=== PATIENT | male | born 1945 | race Caucasian/White ===

== ENCOUNTER 2024-04-01 18:31 | Observation (INO) | payer MEDICARE, SELFPAY ==
[2024-04-01 18:44] VITALS: BP 180/90; PULSE 106; TEMP 36.7; O2SAT 98; BMI 27.6
--- NOTE | 2024-04-01 19:30 | ED.GENADUL1 ---
HPI HPI - General Adult General Chief complaint: Abdominal Pain Stated complaint: Abdominal Pain Time Seen by Provider: 04/01/24 19:16 Source: patient Mode of arrival: walk-in Limitations: no limitations History of Present Illness HPI narrative: Patient is a 78-year-old male who presents to the emergency department for increasing abdominal and flank pain. Patient states he had severe flank pain about 1 month ago, he was seen in an outside facility and passed a small kidney stone. He states several weeks later he had a return of the pain and has been passing multiple small stones. He states over the last week, his pain has increased significantly and he was seen 1 week ago at [facility] with a CT performed in the emergency department. He states he was told he had a 5 mm stone, he was prescribed pain medication, nausea medication for home. He states his increased pain today caused him to call his urologist and he was seen as an outpatient in the [place] office for Dr. Loera, he also had an outpatient x-ray today. He is scheduled for surgery tomorrow morning at this facility at 9 AM to remove the stone, he states that he was told by Dr. Loera in the office that if his pain continued to increase he should come to the hospital, patient's states she is hoping that he can be admitted overnight for pain control as he has not had improvement with home pain medications and continues to vomit them up. No fevers, he is passing urine without difficulty. Related Data Home Medications ?Medication ?Instructions ?Recorded ?Confirmed amlodipine 5 mg tablet 5 mg PO DAILY 04/01/24 04/01/24 aspirin 81 mg capsule 81 mg PO DAILY 04/01/24 04/01/24 doxazosin 4 mg tablet 4 mg PO BEDTIME 04/01/24 04/01/24 ezetimibe 10 mg tablet 10 mg PO BEDTIME 04/01/24 04/01/24 isosorbide mononitrate 30 mg 30 mg PO DAILY 04/01/24 04/01/24 tablet,extended release 24 hr potassium citrate 15 mEq (1,620 15 meq PO DAILY 04/01/24 04/01/24 mg) tablet,extended release rosuvastatin 40 mg tablet 40 mg PO BEDTIME 04/01/24 04/01/24 tamsulosin 0.4 mg capsule 0.4 mg PO Q24H 04/01/24 04/01/24 bisoprolol fumarate 10 mg tablet 10 mg PO DAILY 04/02/24 oxycodone 5 mg tablet 5 mg PO Q6H PRN pain 04/02/24 04/02/24 semaglutide 2 mg/dose (8 mg/3 mL) 2 mg subcut QWEEK 04/02/24 04/02/24 subcutaneous pen injector (Ozempic) Previous Rx's ?Medication ?Instructions ?Recorded cephalexin 500 mg capsule 500 mg PO BID 7 days #14 caps 04/02/24 mirabegron 50 mg tablet,extended 50 mg PO DAILY #20 tabs 04/02/24 release 24 hr (Myrbetriq) Allergies Allergy/AdvReac Type Severity Reaction Status Date / Time lisinopril AdvReac Mild Cough Verified 04/01/24 20:12 colesevelam AdvReac Unknown Unknown Verified 04/01/24 20:12 fluvastatin AdvReac Unknown Muscle Pain Verified 04/01/24 20:12 metaxalone AdvReac Unknown Unknown Verified 04/01/24 20:12 simvastatin AdvReac Unknown Muscle Pain Verified 04/01/24 20:12 atorvastatin AdvReac Muscle Pain Verified 04/01/24 20:12 cerivastatin AdvReac Muscle Pain Verified 04/01/24 20:12 Opioid HPI Opioid Management Most Recent Opioid Data: Last Pain Scale 3 04/02/24 07:00 Last Pain Assessment 04/02/24 17:00 Last MAR Pain Assessment 04/02/24 05:35 Last ORT Total Score 4 04/01/24 22:35 Last ORT Risk Category Moderate Risk 04/01/24 22:35 Review of Systems ROS Constitutional Denies: fever or chills Ears, nose, mouth, and throat Denies: throat pain or nasal congestion Respiratory Denies: shortness of breath Gastrointestinal Reports: abdominal pain, nausea and vomiting; Denies: diarrhea Genitourinary Denies: painful urination or urinary frequency Musculoskeletal Reports: back pain; Denies: neck pain Hematologic/Lymphatic Denies: easy bruising or easy bleeding [facility] Medical History (Updated 04/02/24 @ 11:11 by Shaikh Roro MD) HLD (hyperlipidemia) ?E78.5 - Hyperlipidemia, unspecified (ICD-10) Type 2 diabetes mellitus ?E11.9 - Type 2 diabetes mellitus without complications (ICD-10) Nausea and vomiting ?R11.2 - Nausea with vomiting, unspecified (ICD-10) Flank pain ?R10.9 - Unspecified abdominal pain (ICD-10) Testicle pain ?N50.819 - Testicular pain, unspecified (ICD-10) Retrograde ejaculation ?N53.14 - Retrograde ejaculation (ICD-10) Nocturia ?R35.1 - Nocturia (ICD-10) Epididymitis ?N45.1 - Epididymitis (ICD-10) Kidney stone ?N20.0 - Calculus of kidney (ICD-10) Hypertension ?I10 - Essential (primary) hypertension (ICD-10) GI bleed ?K92.2 - Gastrointestinal hemorrhage, unspecified (ICD-10) Elevated PSA ?R97.20 - Elevated prostate specific antigen [PSA] (ICD-10) Elevated cholesterol ?E78.00 - Pure hypercholesterolemia, unspecified (ICD-10) BPH (benign prostatic hyperplasia) ?N40.0 - Benign prostatic hyperplasia without lower urinary tract symptoms (ICD-10) Surgical History (Updated 04/01/24 @ 16:43 by Moira Luciano RN) H/O: vasectomy ?Z98.52 - Vasectomy status (ICD-10) Hx of tonsillectomy ?Z90.89 - Acquired absence of other organs (ICD-10) History of colonoscopy ?Z98.890 - Other specified postprocedural states (ICD-10) H/O transurethral resection of prostate ?Z98.890 - Other specified postprocedural states (ICD-10) ?Z90.79 - Acquired absence of other genital organ(s) (ICD-10) Hx of cystoscopy ?Z98.890 - Other specified postprocedural states (ICD-10) H/O ureteroscopy ?Z98.890 - Other specified postprocedural states (ICD-10) H/O lithotripsy ?Z98.890 - Other specified postprocedural states (ICD-10) H/O arthroscopy of knee ?Z98.890 - Other specified postprocedural states (ICD-10) Family History (Updated 04/01/24 @ 16:49 by Moira Luciano RN) Other Family history of stroke Heart disease Social History (Updated 04/01/24 @ 22:49 by Ashok Abdul) Smoking status: Former smoker What tobacco products do you use: cigarettes Packs per day: 2 Years smoked: 20 Smoking pack-years: 40.00 Smoking quit date/years: >15 years ago Second hand tobacco smoke exposure: Yes Highest level of school completed/degree received: high school graduate Exam Narrative Exam Narrative: Gen.: Awake, alert, in no distress Head: Normocephalic, atraumatic ENT: Moist mucous membranes Respiratory: No respiratory distress Gastrointestinal: Abdomen is soft, nondistended and mildly tender to palpation along the right flank Extremities: Moves extremities equally Psych: Normal mood and affect Neuro: No focal neuro deficit Skin: Warm, dry, intact Constitutional Vital Signs, click to edit/add: Last Vital Signs Temp 99.3 F 04/02/24 17:09 Pulse 95 H 04/02/24 17:09 Resp 18 04/02/24 17:09 BP 115/67 04/02/24 17:09 Pulse Ox 94 L 04/02/24 17:09 O2 Del Method Room Air 04/02/24 17:09 O2 Flow Rate 2 04/02/24 16:23 Course Vital Signs Vital signs: Vital Signs Temperature 98.1 F 04/01/24 18:44 Pulse Rate 106 H 04/01/24 18:44 Respiratory Rate 18 04/01/24 18:44 Blood Pressure 180/90 H 04/01/24 18:44 Pulse Oximetry 98 04/01/24 18:44 Oxygen Delivery Method Room Air 04/01/24 18:44 Temperature 99.3 F 04/02/24 17:09 Pulse Rate 95 H 04/02/24 17:09 Respiratory Rate 18 04/02/24 17:09 Blood Pressure 115/67 04/02/24 17:09 Pulse Oximetry 94 L 04/02/24 17:09 Oxygen Delivery Method Room Air 04/02/24 17:09 Oxygen Delivery Flow Rate 2 04/02/24 16:23 Medical Decision Making MDM Narrative Medical decision making narrative: Patient medicated with IV fluids, Dilaudid, low-dose Toradol, Zofran. CBC is unremarkable, urine specimen with no evidence of infection although the patient does have ketones and is likely dehydrated. Patient's expresses her concern about the patient going home tonight in terms of pain control and continued vomiting, he is admitted for observation for pain control until his surgery tomorrow morning with Dr. Loera. Accepted by the hospitalist service SUPERVISED APC VISIT, PHYSICIAN ATTESTATION: Based on the medical record the care appears appropriate. ? Medical Records Medical records reviewed: Yes I reviewed the patient's medical records Lab Data Lab results reviewed: Yes I reviewed the patient's lab results Labs: Lab Results 04/01/24 04/01/24 Range/Units 18:55 19:15 WBC 10.2 (4.0-11.0) 10^3/uL RBC 5.53 (4.70-6.10) 10^6/uL Hgb 16.8 (14.0-18.0) g/dL Hct 49.6 (42.0-54.0) % MCV 89.7 (80.0-94.0) fL MCH 30.4 (25.9-34.0) pg MCHC 33.9 (29.9-35.2) g/dL RDW 14.5 (11.0-15.0) % Plt Count 163 (150-450) 10^3/uL MPV 11.7 (9.5-13.5) fL Seg Neuts % (Manual) 84.0 H (43.0-75.0) Band Neutrophils % 1.0 (0-5) % Lymphocytes % (Manual) 4.0 L (20.5-60.0) % Monocytes % (Manual) 11.0 (1.7-12.0) % Eosinophils % (Manual) 0.0 L (0.9-7.0) % Basophils % (Manual) 0.0 L (0.2-2.0) % Neutrophils # (Manual) 8.56 H (1.4-6.5) 10^3/uL Band Neutrophils # 0.1 (0.0-0.3) 10^3/uL Lymphocytes # (Manual) 0.40 L (1.20-3.80) 10^3/uL Monocytes # (Manual) 1.12 H (0.30-0.80) 10^3/uL Eosinophils # (Manual) 0.00 (0.00-0.70) 10^3/uL Basophils # (Manual) 0.00 (0.00-0.10) 10^3/uL PT 11.2 (9.0-11.6) sec INR 1.06 Sodium 138 (136-145) mmol/L Potassium 4.3 (3.5-5.1) mmol/L Chloride 100 (98-107) mmol/L Carbon Dioxide 25.3 (21.0-32.0) mmol/L Anion Gap 17.0 BUN 22.0 H (7.0-18.0) mg/dL Creatinine 1.87 H (0.70-1.30) mg/dL Est GFR ( Amer) 43 L (>=60) Est GFR (Non-Af Amer) 35 L (>=60) BUN/Creatinine Ratio 11.8 Glucose 172 H (74-106) mg/dL Lactate 1.5 (0.4-2.0) mmol/L Calcium 9.6 (8.5-10.1) mg/dL Total Bilirubin 1.2 H (0.2-1.0) mg/dL AST 25 (15-37) U/L ALT 33 (16-63) U/L Alkaline Phosphatase 98 (46-116) U/L Total Protein 7.4 (6.4-8.2) g/dL Albumin 3.7 (3.4-5.0) g/dL Globulin 3.7 g/dL Albumin/Globulin Ratio 1.0 Urine Color Yellow (YELLOW) Urine Clarity Clear (CLEAR) Urine pH 6.5 (5.0-9.0) Ur Specific [place] 1.020 (1.005-1.025) Urine Protein 30 A (NEG/TRACE) mg/dL Urine Glucose (UA) Negative (NEGATIVE) mg/dL Urine Ketones 40 A (NEGATIVE) mg/dL Urine Occult Blood Trace-i (NEGATIVE) Urine Nitrite Negative (NEGATIVE) Urine Bilirubin Negative (NEGATIVE) Urine Urobilinogen 0.2 (0.2-1.0) EU/dL Ur Leukocyte Esterase Negative (NEGATIVE) Urine RBC 0-2 (0-2) #/HPF Urine WBC None seen (NONE SEEN) #/HPF Ur Squamous Epith Cells Rare (NONE/RARE) #/LPF Urine Crystals None seen (None Seen) #/HPF Urine Bacteria Trace A (NONE SEEN) #/HPF Urine Casts None seen (NONE SEEN) #/LPF Urine Mucus None seen (NONE SEEN) Ur Culture Indicated? No Discharge Plan Discharge Chief Complaint: Abdominal Pain Clinical Impression: Acute flank pain, Nausea & vomiting Patient Disposition: Admitted as Observation Time of Disposition Decision: 19:48 Condition: Good Discharge Date/Time: 04/01/24 21:20
[2024-04-01 19:37] LABS: Hematocrit 49.6 % (42.0-54.0); Hemoglobin 16.8 g/dL (14.0-18.0); Mean Corpuscular HGB Conc 33.9 g/dL (29.9-35.2); Mean Corpuscular Hemoglobin 30.4 pg (25.9-34.0); Mean Corpuscular Volume 89.7 fL (80.0-94.0); Mean Platelet Volume 11.7 fL (9.5-13.5); Platelet Count 163 10^3/uL (150-450); Red Blood Count 5.53 10^6/uL (4.70-6.10); Red Cell Distribution Width 14.5 % (11.0-15.0); White Blood Count 10.2 10^3/uL (4.0-11.0)
[2024-04-01 19:39] LABS: Bilirubin Urine NEGATIVE (NEGATIVE); Blood Urine TRACE-I (NEGATIVE); Clarity Urine CLEAR (CLEAR); Color Urine YELLOW (YELLOW); Glucose Urine UA NEGATIVE (NEGATIVE); Ketones Urine 40 mg/dL (NEGATIVE); Leukocyte Esterase Urine NEGATIVE (NEGATIVE); Nitrite Urine NEGATIVE (NEGATIVE); Protein Urine 30 mg/dL (NEG/TRACE); Urobilinogen Urine 0.2 EU/dL (0.2-1.0); pH Urine 6.5 (5.0-9.0)
[2024-04-01 19:42] LABS: Urine Microscopic Indicated YES
[2024-04-01 19:51] LABS: Bacteria Urine TRACE #/HPF (NONE SEEN); Cast Seen? NONE SEEN #/LPF (NONE SEEN); Crystals Seen? None Seen #/HPF (None Seen); Mucus Urine NONE SEEN (NONE SEEN); RBC Urine 0-2 #/HPF (0-2); Squamous Epithelial Cell Urine RARE #/LPF (NONE/RARE); Urine Culture Indicated NO; WBC Urine NONE SEEN #/HPF (NONE SEEN)
[2024-04-01 19:53] LABS: Alanine Aminotransferase 33 U/L (16-63); Albumin Level 3.7 g/dL (3.4-5.0); Alkaline Phosphatase 98 U/L (46-116); Aspartate Amino Transferase 25 U/L (15-37); BUN Creatinine Ratio 11.8; Bilirubin Total 1.2 mg/dL (0.2-1.0); Calcium 9.6 mg/dL (8.5-10.1); Chloride 100 mmol/L (98-107); Estimated GFR (African America 43 (>=60); Estimated GFR (Non-African Ame 35 (>=60); Globulin 3.7 g/dL; Glucose 172 mg/dL (74-106); Potassium 4.3 mmol/L (3.5-5.1); Sodium 138 mmol/L (136-145); Total Protein 7.4 g/dL (6.4-8.2)
[2024-04-01 19:55] LABS: Lactate/Lactic Acid 1.5 mmol/L (0.4-2.0); Segmented Neut Absolute Manual 8.56 10^3/uL (1.4-6.5)
[2024-04-01 19:56] LABS: Band Neutrophils Absolute 0.1 10^3/uL (0.0-0.3); Monocytes Absolute Manual 1.12 10^3/uL (0.30-0.80)
[2024-04-01] MEDS: 0.9 % SODIUM CHLORIDE 1,000 ML 999 ML IV (19:56)
[2024-04-01] MEDS: ONDANSETRON PF 4 MG/2 ML VIAL IV (19:57)
[2024-04-01] MEDS: HYDROMORPHONE HCL 0.5 MG/0.5 ML SYRINGE IV (19:57)
[2024-04-01] MEDS: KETOROLAC TROMETHAMINE 30 MG/ML VIAL 15 MG IVP (19:57)
[2024-04-01 20:01] LABS: Carbon Dioxide 25.3 mmol/L (21.0-32.0)
[2024-04-01 20:03] LABS: INR 1.06; Prothrombin Time 11.2 sec (9.0-11.6)
[2024-04-01 20:08] VITALS: BP 152/88; PULSE 89; TEMP 36.8; O2SAT 92
[2024-04-01 21:20] VITALS: BP 160/100; PULSE 88; O2SAT 97
[2024-04-01 22:35] VITALS: BP 152/88; PULSE 89; TEMP 36.8; O2SAT 92; BMI 27.6
[2024-04-01] MEDS: 0.9 % SODIUM CHLORIDE 1,000 ML 100 ML IV (23:01)
[2024-04-02] VITALS (14 sets, daily range): BP systolic 115–149; BP diastolic 67–95; PULSE 76–95; TEMP 36.2–37.4; O2SAT 88–98
--- NOTE | 2024-04-02 | FL_ITS ---
[address] [address] Patient Name: JESSENIA PYLE MRN: [id number] date: 1945 Sex: M Assigned Patient Location: [place] Current Patient Location: [place] Accession/Order Number: [id number] Exam Date: 04/02/2024 12:30 Report Date: 04/07/2024 08:16 At the request of: JESUSITA SMALL Procedure: FL fluoroscopy <1hr NON-READ EXAM: FL fluoroscopy <1hr NON-READ HISTORY: TECHNIQUE: FINDINGS: Please see Operative Report. Electronically authenticated by: RADIOLOGIST NO Date: 04/07/2024 08:16
[2024-04-02] MEDS: HYDROMORPHONE HCL 1 MG/ML CARTRIDGE 0.5 MG IVP ×2 (00:09→05:35)
[2024-04-02] MEDS: KETOROLAC TROMETHAMINE 30 MG/ML VIAL 15 MG IVP ×2 (00:56→05:35)
[2024-04-02 06:39] LABS: Hematocrit 41.2 % (42.0-54.0); Hemoglobin 13.8 g/dL (14.0-18.0); Mean Corpuscular HGB Conc 33.5 g/dL (29.9-35.2); Mean Corpuscular Hemoglobin 30.5 pg (25.9-34.0); Mean Corpuscular Volume 90.9 fL (80.0-94.0); Mean Platelet Volume 11.7 fL (9.5-13.5); Platelet Count 140 10^3/uL (150-450); Red Blood Count 4.53 10^6/uL (4.70-6.10); Red Cell Distribution Width 14.6 % (11.0-15.0); White Blood Count 7.2 10^3/uL (4.0-11.0)
[2024-04-02] MEDS: 0.9 % SODIUM CHLORIDE 1,000 ML 100 ML IV (06:45)
[2024-04-02] MEDS: ONDANSETRON PF 4 MG/2 ML VIAL IV (06:46)
[2024-04-02 07:08] LABS: Anion Gap 9.9; BUN Creatinine Ratio 11.2; Calcium 8.5 mg/dL (8.5-10.1); Carbon Dioxide 28.2 mmol/L (21.0-32.0); Chloride 105 mmol/L (98-107); Estimated GFR (African America 43 (>=60); Estimated GFR (Non-African Ame 35 (>=60); Glucose 97 mg/dL (74-106); Potassium 4.1 mmol/L (3.5-5.1); Sodium 139 mmol/L (136-145)
[2024-04-02] MEDS: ISOSORBIDE MONONITRATE 30 MG TAB.ER.24H PO (08:50)
[2024-04-02] MEDS: LACTATED RINGER'S SOLUTION 1,000 ML 50 ML IV ×2 (08:50→13:00)
[2024-04-02] MEDS: AMLODIPINE BESYLATE 5 MG TABLET PO (08:50)
--- NOTE | 2024-04-02 09:09 | ECG_ITS ---
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
[2024-04-02 09:57] LABS: Partial Thromboplastin Time 32.9 sec (22.3-36.2)
--- NOTE | 2024-04-02 10:27 | SWNOTE1 ---
SW met with pt and in room to discuss dc needs. Pt lives at home with and does not use any DME equipment, is independent, and has no services coming. Pt denies having any discharge needs at this time. SW to follow as needed.
--- NOTE | 2024-04-02 10:27 | CM.NOTE ---
Rounds made with Dr. Read. Dr. Read discusses plan of care and potential for discharge if stable after surgery today.
--- NOTE | 2024-04-02 10:31 | SWNOTE1 ---
Medicare Outpatient Observation Notice reviewed and discussed with patient and . Pt and verbalized understanding and pt had his sign the form. Original given to patient and and copy placed in patient?s chart.
--- NOTE | 2024-04-02 11:03 | PM.HP ---
HPI H&P: HPI History of Present Illness Chief complaint: Abdominal Pain, Flank Pain, Ureteral Stone Narrative: HPI and Hospital Course: 78-year-old male with history of recurrent intrarenal stone originally presented to [facility] about 4 weeks ago and was discharged on oral abx. He was found to have right renal stones and CT scan was indicative of recently passed stone. He then presented to [facility] for right sided abdominal pain, suprapubic pain and passed a small stone while in ED. He felt better afterwards but then past 2-3 days, he started to experience intractable nausea/vomiting, right sided pain, that is intermittent,spasmodic and was seen by Urol[facility]oy as outpatient. He was originally scheduled for elective cystoscopy/ureteral stent placement today but presented to ED due to intractable symptoms. Patient was admitted for intractable nausea, vomiting and abdominal pain secondary to right ureteral stone. Patient denies inability to urinate or hematuria. He has prior history of recurrent renal stone and has had urological interventions in the past. He was reassess post operatively. He had cystoscopy/ureteral dilatation/stent placement. Stable for discharge from Urologist pov. F/u with Urology - Dr Loera office will call to schedule the appointment. F/u with PCP in one week Opioid HPI Opioid Management Most Recent Pain and Opioid Data: Last Pain Scale 3 04/02/24 07:00 Last Pain Assessment 04/02/24 13:49 Last MAR Pain Assessment 04/02/24 05:35 Last ORT Total Score 4 04/01/24 22:35 Last ORT Risk Category Moderate Risk 04/01/24 22:35 Review of Systems ROS Status of ROS 10 or more systems reviewed and unremarkable except as noted in history and below [facility] Medical History (Updated 04/02/24 @ 11:11 by Shaikh Roro MD) HLD (hyperlipidemia) ?E78.5 - Hyperlipidemia, unspecified (ICD-10) Type 2 diabetes mellitus ?E11.9 - Type 2 diabetes mellitus without complications (ICD-10) Nausea and vomiting ?R11.2 - Nausea with vomiting, unspecified (ICD-10) Flank pain ?R10.9 - Unspecified abdominal pain (ICD-10) Testicle pain ?N50.819 - Testicular pain, unspecified (ICD-10) Retrograde ejaculation ?N53.14 - Retrograde ejaculation (ICD-10) Nocturia ?R35.1 - Nocturia (ICD-10) Epididymitis ?N45.1 - Epididymitis (ICD-10) Kidney stone ?N20.0 - Calculus of kidney (ICD-10) Hypertension ?I10 - Essential (primary) hypertension (ICD-10) GI bleed ?K92.2 - Gastrointestinal hemorrhage, unspecified (ICD-10) Elevated PSA ?R97.20 - Elevated prostate specific antigen [PSA] (ICD-10) Elevated cholesterol ?E78.00 - Pure hypercholesterolemia, unspecified (ICD-10) BPH (benign prostatic hyperplasia) ?N40.0 - Benign prostatic hyperplasia without lower urinary tract symptoms (ICD-10) Surgical History (Updated 04/01/24 @ 16:43 by Moira Luciano RN) H/O: vasectomy ?Z98.52 - Vasectomy status (ICD-10) Hx of tonsillectomy ?Z90.89 - Acquired absence of other organs (ICD-10) History of colonoscopy ?Z98.890 - Other specified postprocedural states (ICD-10) H/O transurethral resection of prostate ?Z98.890 - Other specified postprocedural states (ICD-10) ?Z90.79 - Acquired absence of other genital organ(s) (ICD-10) Hx of cystoscopy ?Z98.890 - Other specified postprocedural states (ICD-10) H/O ureteroscopy ?Z98.890 - Other specified postprocedural states (ICD-10) H/O lithotripsy ?Z98.890 - Other specified postprocedural states (ICD-10) H/O arthroscopy of knee ?Z98.890 - Other specified postprocedural states (ICD-10) Family History (Updated 04/01/24 @ 16:49 by Moira Luciano RN) Other Family history of stroke Heart disease Social History (Updated 04/01/24 @ 22:49 by Ashok Abdul) Smoking status: Former smoker What tobacco products do you use: cigarettes Packs per day: 2 Years smoked: 20 Smoking pack-years: 40.00 Smoking quit date/years: >15 years ago Second hand tobacco smoke exposure: Yes Highest level of school completed/degree received: high school graduate Meds Home Medications and Allergies Home Medications ?Medication ?Instructions ?Recorded ?Confirmed ?Type amlodipine 5 mg tablet 5 mg PO DAILY 04/01/24 04/01/24 History aspirin 81 mg capsule 81 mg PO DAILY 04/01/24 04/01/24 History doxazosin 4 mg tablet 4 mg PO BEDTIME 04/01/24 04/01/24 History ezetimibe 10 mg tablet 10 mg PO BEDTIME 04/01/24 04/01/24 History isosorbide mononitrate 30 mg 30 mg PO DAILY 04/01/24 04/01/24 History tablet,extended release 24 hr potassium citrate 15 mEq (1,620 15 meq PO DAILY 04/01/24 04/01/24 History mg) tablet,extended release rosuvastatin 40 mg tablet 40 mg PO BEDTIME 04/01/24 04/01/24 History tamsulosin 0.4 mg capsule 0.4 mg PO Q24H 04/01/24 04/01/24 History bisoprolol fumarate 10 mg tablet 10 mg PO DAILY 04/02/24 History cephalexin 500 mg capsule 500 mg PO BID 7 days #14 caps 04/02/24 Rx mirabegron 50 mg tablet,extended 50 mg PO DAILY #20 tabs 04/02/24 Rx release 24 hr (Myrbetriq) oxycodone 5 mg tablet 5 mg PO Q6H PRN pain 04/02/24 04/02/24 History semaglutide 2 mg/dose (8 mg/3 mL) 2 mg subcut QWEEK 04/02/24 04/02/24 History subcutaneous pen injector (Ozempic) Allergies Allergy/AdvReac Type Severity Reaction Status Date / Time lisinopril AdvReac Mild Cough Verified 04/01/24 20:12 colesevelam AdvReac Unknown Unknown Verified 04/01/24 20:12 fluvastatin AdvReac Unknown Muscle Pain Verified 04/01/24 20:12 metaxalone AdvReac Unknown Unknown Verified 04/01/24 20:12 simvastatin AdvReac Unknown Muscle Pain Verified 04/01/24 20:12 atorvastatin AdvReac Muscle Pain Verified 04/01/24 20:12 cerivastatin AdvReac Muscle Pain Verified 04/01/24 20:12 Exam Constitutional Vital Signs, click to edit/add: Last Vital Signs Temp 98.4 F 04/02/24 07:34 Pulse 86 04/02/24 07:34 Resp 16 04/02/24 07:34 BP 149/89 H 04/02/24 07:34 Pulse Ox 98 04/02/24 07:34 O2 Del Method Room Air 04/02/24 07:34 Documenting provider has reviewed patient's vital signs: yes Common normals: no apparent distress and oriented x3 General appearance: cooperative Respiratory Common normals: normal respiratory effort and clear to auscultation bilaterally [place] & inspection: able to speak in complete sentences Auscultation: clear to auscultation bilaterally Cardio Common normals: regular rate, S1 normal heart sound and S2 normal heart sound Rate: regular rate Heart sounds: S1 normal and S2 normal GI Common normals: Normal to inspection, nondistended, normoactive bowel sounds present, soft to palpation, non-tender and no hepatosplenomegaly Palpation: soft and no hepatosplenomegaly Extremity Common normals: no clubbing, cyanosis or edema Neuro Common normals: oriented x3, moves all extremities and no focal motor deficits Psych Common normals: mental status grossly normal, denies hallucinations, denies homicidal ideation and denies suicidal ideation Results Labs Labs: Short CBC 04/01/24 04/02/24 Range/Units 19:15 06:03 WBC 10.2 7.2 (4.0-11.0) 10^3/uL Hgb 16.8 13.8 L (14.0-18.0) g/dL Hct 49.6 41.2 L (42.0-54.0) % Plt Count 163 140 L (150-450) 10^3/uL BMP 04/01/24 04/02/24 19:15 06:03 Sodium 138 139 Potassium 4.3 4.1 Chloride 100 105 Carbon Dioxide 25.3 28.2 BUN 22.0 H 21.0 H Creatinine 1.87 H 1.87 H Glucose 172 H 97 Calcium 9.6 8.5 Liver Function 04/01/24 Range/Units 19:15 Total Bilirubin 1.2 H (0.2-1.0) mg/dL AST 25 (15-37) U/L ALT 33 (16-63) U/L Alkaline Phosphatase 98 (46-116) U/L Albumin 3.7 (3.4-5.0) g/dL Urine 04/01/24 Range/Units 18:55 Urine Color Yellow (YELLOW) Urine Clarity Clear (CLEAR) Urine pH 6.5 (5.0-9.0) Ur Specific [place] 1.020 (1.005-1.025) Urine Protein 30 A (NEG/TRACE) mg/dL Urine Glucose (UA) Negative (NEGATIVE) mg/dL Assessment and Plan Assessment and Plan (1) Intractable nausea and vomiting: Assessment and Plan: Symptoms improved overnight with IV Zofran. Secondary to obstructed ureteral stone. (2) Ureteral stone: Assessment and Plan: s/p ureteral stent placement. Outpatient f/u with Urology. (3) ISAC (acute kidney injury): Assessment and Plan: Unsure of patient's baseline creatinine but as per the patient he has no known kidney disease. His creatinine is 1.8 and likely acute because of dehydration and ureteral stone. (4) Type 2 diabetes mellitus: Assessment and Plan: On Ozempic as outpatient. Sliding scale insulin while inpatient. Qualifiers: Diabetes mellitus complication status: without complication Diabetes mellitus terminal operations manager insulin use: without terminal operations manager use Qualified Code(s): E11.9 - Type 2 diabetes mellitus without complications (5) Hypertension: Assessment and Plan: Blood pressure is at goal. Continue with home medications about patient. Qualifiers: Hypertension type: primary hypertension Qualified Code(s): I10 - Essential (primary) hypertension (6) HLD (hyperlipidemia): Assessment and Plan: Continue with Crestor. Qualifiers: Hyperlipidemia type: mixed hyperlipidemia Qualified Code(s): E78.2 - Mixed hyperlipidemia
[2024-04-02] MEDS: CEFAZOLIN SODIUM/DEXTROSE,ISO 1 GM/50 ML PREMIX IV (12:06)
--- NOTE | 2024-04-02 13:16 | PM.URSON ---
Urology Surgery Operative Note Operative Note Procedure Date: 04/02/24 Time Out Performed: yes Pre-op Diagnosis: Right ureteral calculus; obstructing Post-op Diagnosis: same as pre-op Procedures performed: 1. Cystoscopy. 2. Right rigid ureteral dilation. 3. Right ureteroscopy. 4. Thulium laser lithotripsy of multiple right ureteral calculi. 5. Stone fragment basket extraction from right ureter. 6. Right pyeloscopy. 7. Placement of 6 Wallisian variable length right ureteral stent. Anesthesia: GETA Primary Surgeon: Jerry Loera Complications: None Estimated blood loss (mL): 15 Findings: 1. Multiple right distal ureteral calculi. 2. No evidence of right renal calculi but multiple Reggie's plaques Specimens: Right ureteral calculi fragments Drains: 6 Wallisian variable length right ureteral stent Indications for Procedures: This gentleman has been to the ER now twice due to right flank pain. Last night he had to be admitted to the hospital for pain management. He has a 5 to 6 mm right distal third ureteral calculus causing pain and nausea. He also has ipsilateral renal calculi. He now presents for cystoscopy, ureteroscopy, stone manipulation and right stent placement. He has signed an informed consent after risks were explained. Detailed description of Procedure: The patient was brought to the operating room and placed on the operating room table in the supine position. SCDs were placed on the lower extremities and turned on and functioning during the entire case. Timeout was done by all parties in the room. We all agreed upon the patient's identification and the planned procedures for this patient. Genn. anesthesia was then administered. The patient was then repositioned into the modified dorsal lithotomy position. All pressure points were satisfactorily padded. Genitalia were sterilely prepped and draped in usual fashion. I started by passing a 22 Wallisian Olympus cystoscope per urethra and into the bladder. Anterior urethra was normal. Prostatic urethra showed mild regrowth of the prostate and his bladder neck was open. Panendoscopy in the bladder showed no evidence of any tumors or stones. High-grade trabeculation was noted. I then passed a Glidewire through the scope and cannulated the right ureter and as soon as the wire got beyond the stones there was an E flux of cloudy urine into the bladder. I then used a 8 and 10 Wallisian rigid dilator to dilate the distal right ureter. The scope was removed. I then passed a semirigid ureteroscope adjacent to the wire and up the right ureter and I was able to get to the stone. As it turns out, there were multiple stones here. Since his CAT scan, it seems as though stones from within the kidney passed down to the ureter to create obstruction from multiple stones. I then passed a 270 ? laser fiber through the scope and made contact with the lead largest stone and did laser lithotripsy at 7.5 W on the fragmentation mode. I fragmented the big stone and then I fragmented multiple other stones which were similar size or smaller. Once I got through all of the stones I then scoped up higher and found no other stones. 0 tip nitinol basket was used to engage pieces and dumped them in the base of the bladder. I went up and down the ureter numerous times removing fragments until the right ureter was entirely free of stone. The ureteroscope was then removed. I then passed a 10/12 Wallisian ureteral access sheath over the wire and up the ureter to L5. The stylette and wire were removed. I then passed a flexible ureteroscope through the sheath and into the ureter. I ascended up the ureter and then into the kidney. I scoped within the upper mid and lower pole calyces. There were no stones visible. There were several Reggie's plaques. I then remove the ureteroscope and the and passed a wire up the sheath into the kidney and removed the access sheath. I then backloaded the cystoscope over the wire and passed it into the bladder. I then slid a 6 Wallisian variable length stent over the wire up into the kidney. The wire was removed and there were good curls in the kidney and in the bladder. The Ilich evacuator was then used to get all the stone pieces from the base of the bladder out. These were sent for stone analysis. The bladder was drained of its contents and the scope was then removed. The anesthetic was then reversed. He was then transferred to a [place] bed and wheeled to PACU in stable condition.
--- NOTE | 2024-04-03 14:51 | CM.DCFOLLOWU ---
Person spoke with:patient How are you feeling? much better How is your pain? no pain Did you understand your discharge instructions? yes Do you have any questions about your discharge instructions? no Were you given any prescriptions at discharge? yes Were you able to get your prescriptions filled? yes Do you understand how to take your medications as ordered? yes Do you have any questions about your follow up appointment and do you plan to keep your follow up appointment? no questions, follow up reviewed Is there anything else that you would like to discuss? no Questions/Comments/Concerns/Other: none
== END 2024-04-02 17:31 | disposition home or self-care (01) ==
LOC: ER 20:12 → MS 21:25
PROVIDERS: Physician Assistant; Registered Nurse; Urology; Admitting Provider Internal Medicine; Emergency Provider Internal Medicine; PCP Internal Medicine; Visit Provider Internal Medicine
PROC: (CPT 52332; principal; 2024-04-02 10:45)
DX: N20.1 Calculus of ureter (principal); R10.9 Unspecified abdominal pain; R11.2 Nausea with vomiting, unspecified; N17.9 Acute kidney failure, unspecified; E11.9 Type 2 diabetes mellitus without complications; I10 Essential (primary) hypertension; E78.2 Mixed hyperlipidemia; Z87.442 Personal history of urinary calculi; Z87.891 Personal history of nicotine dependence; Z79.85 Long-term (current) use of injectable non-insulin antidiabetic drugs
CPT/HCPCS: 52332; 52352; 52356; 36415; 76000; 80048; 80053; 81001; 82365; 83605; 85007; 85027; 85610; 85730; 93005; 96361; 96374; 96375; 96376; 99285; 99999; G0378; J0690; J1170; J1885; J2371; J2405; J2704; J3010

== ENCOUNTER 2024-08-31 10:57 | Outpatient (OUT) | payer MEDICARE, SELFPAY ==
--- NOTE | 2024-08-31 11:14 | XR_ITS ---
The [address] [address] Patient Name: JESSENIA PYLE MRN: [id number] date: 1945 Sex: M Assigned Patient Location: [facility] Current Patient Location: Accession/Order Number: [id number] Exam Date: 08/31/2024 11:15 Report Date: 09/01/2024 09:15 At the request of: JESUSITA SMALL Procedure: XR abdomen 1V EXAMINATION: XR abdomen 1V HISTORY: Kidney Stones COMPARISON: XR KUB 03/16/2021 FINDINGS: KIDNEY/URETER - RIGHT: No visible renal or ureteral calcifications. KIDNEY/URETER - LEFT: No visible renal or ureteral calcifications. PELVIS: No appreciable ureteral stones. BOWEL: No abnormal dilation or deviation. BONES: No acute abnormality. OTHER: Negative. No abnormal gaseous collections. XR/XR abdomen 1V IMPRESSION: 1. No appreciable urinary tract calculi. Electronically authenticated by: SUE CHARLTON Date: 09/01/2024 09:15
--- OUTSIDE RECORDS SUMMARY | 2024-08-31 11:17 | XMS_ITS | CCD ---
Author Organization [facility] Care Team Providers Care Cover Creaser Name Role Phone DR JESUSITA SMALL Attending Unavailable IGNACIO, DR SUACEDO Primary Care Unavailable STACI, DR MC Admitting Unavailable STACI, DR MC Consulting Unavailable STACI, DR MC Attending Unavailable STAIC, DR MC Admitting Unavailable IGNACIO, DR SAUCEDO Primary Care Unavailable STACI, DR MC Consulting Unavailable STACI, DR MC Attending Unavailable STACI, DR MC Admitting Unavailable IGNACIO, DR SAUCEDO Primary Care Unavailable STACI, DR MC Consulting Unavailable LATESHA, DR SUE Payan Consulting Unavailable MAUREEN MOYA Consulting Unavailable Chris Pierre Unavailable Unavailable Unavailable CHRIS PIERRE Primary Care Physician Unavail able DO Chris Pierre Primary Care Provider DO Chris Pierre Other Provider DO Eduardo Brock Attending Provider MD Jesusita Small Referring Provider [phone] MD Jesusita Small Attending Provider Unavailable Primary Care Provider UnavailDO Chris Loyd Primary Care Provider DO Chris Pierre Attending Provider Unavailable Primary Care Provider UnavailTAMANNA Canada Attending Unavailable LEE KNOWLES Referring Unavailab TAMANNA Osorio Attending Unavailable DO Chris Pierre Primary Care Provider [phone] DO Chris Pierre Attending Provider [phone] DO Chris Pierre Primary Care Provider DO Chris Pierre Attending Provider [phone] MD Shanthi Lancaster Attending Provider [phone] MD Shanthi Lancaster Attending Provider [phone] DO Chris Pierre Primary Care Provider DO Chris Pierre Attending Provider Dr. Chris Pierre [facility] Care MD SHANTHI Roman Attending Unavailable MD SHANTHI LANCASTER Referring Unavailable Ignacio, Dr. Chris Almonte Primary Care MD SHANTHI Roman Attending Unavailable MD SHANTHI LANCASTER Referring Unavailable Ignacio, Dr. Chris Almonte [facility] MD SHANTHI Roman Attending Unavailable MD SHANTHI LANCASTER Referring Unavailable Ignacio, Dr. Chris Almonte [facility] Magaly Dallas, Ms. Faith Roberson Attending Magaly Dallas, Ms. Faith Roberson Referring Magaly Pierre, Dr. Chris Almonte [facility] MD SHANTHI Roman Attending Unavailable MD SHANTHI LANCASTER Referring Unavailable MD SHANTHI LANCASTER Attending Unavailable Ignacio, Dr. Chris Almonte [facility] MD SHANTHI Roman Referring Unavailable MD SHANTHI LANCASTER Attending Unavailable Ignacio, Dr. Chris Almonte Primary Care MD SHANTHI Roman Referring Unavailable Ignacio, Dr. Chris Almonte Primary [facility] Dr. Shanthi Roman Attending Unavailable Ignacio, Dr. Chris Almonte [facility] Dr. Shanthi Roman Attending Unavailable DO Chris Pierre Primary Care Provider MD Jesusita Small Attending Provider [phone] DO Chris Pierre Attending Provider Chris Pierre DO Primary Care Provider DO Jesusita Chavarria Emergency Provider DO Chris Pierre Primary Care Provider MD Shanthi Lancaster Referring Provider FLIP Zarate Attending Provider DO [facility] Emergency Provider Jesusita SMALL R Attending Unavailable STACI, Jesusita R Attending Unavailable Cole King Attending Unavailable MD Jesusita Small Attending Provider SMALL, Jesusita R Attending Unavailable SMALL, Jesusita R Admitting Unavailable Cole King Attending Unavailable SMALL, Jesusita R Attending Unavailable SMALL, Jesusita R Attending Unavailable DO Ignacio Chris Primary Care Provider MD Jesusita Small Attending Provider [phone] SHANTHI LANCASTER Attending Unavailable CHRIS PIERRE Primary Care Unavailable Ignacio AZAR, Chris Primary Care Provider Staci HALEY, Jesusita Attending Provider Chris Pierre DO Primary Care Provider [phone] Jesusita Small MD Attending Provider Jamison Lauren MD Attending Provider [phone] Misha Chauhan MD Attending Provider Chris Pierre DO Attending Provider CHRIS PIERRE Referring Unavailable CHRIS PIERRE Attending Unavailable LASHONDA LAMA Attending Unavailable LASHONDA LAMA Referring Unavailable SPENCER ZARATE Referring Unavailable CHRIS PIERRE Attending Unavailable CHRIS PIERRE Attending Unavailable SPENCER ZARATE Attending Unavailable SPENCER ZARATE Referring Unavailable CHRIS PIERRE Attending Unavailable CHRIS PIERRE Attending Unavailable CHRIS PIERRE Attending Unavailable PSENCER ZARATE Referring Unavailable CHRIS PIERRE Attending Unavailable CHRIS PIERRE Referring Unavailable SPENCER ZARATE Attending Unavailable Chris Pierre DO Referring Provider STACI, Jesusita R Attending Unavailable SMALL, Jesusita R Referring Unavailable SMALL, Jesusita R Attending Unavailable SMALL, Jesusita R Admitting Unavailable Small, Jesusita Admitting Unavailable Staci, Jesusita Attending Unavailable Chris Pierre Primary Care Unavailable Staci, Jesusita Admitting Unavailable Staci, Jesusita Attending Unavailable Chris Pierre Primary Care Unavailable Staci, Jesusita Admitting Unavailable Staci, Jesusita Attending Unavailable Ignacio Chris Primary Care Unavailable Chris Pierre Referring Unavailable Ignacio Chris Primary Care Unavailable Misha Chauhan Admitting Unavai lable Tien, Misha Brunner Attending Magaly Pierre Lyndora Primary Care Unavailable Jesusita Chavarria Admitting Unavailable Jesusita Chavarria Attending Unavailable Roberto Olivares Admitting Unavailable Roberto Olivares Attending Unavailable Ignacio Chris Primary Care Unavailable Ignacio Chris Primary Care Unavailable Jamison Lauren Admitting Unavailable Jamison Lauren [facility] Unavailable Misha Chauhan Admitting Unavai lable Tien, Misha Brunner Attending Chris Peralta Attending Unavailable Chris Pierre Admitting Unavailable Ignacio Chris [facility] Unavailable Shanthi Lancaster [facility] Spencer Zarate Admitting Unavailable Spencer Zarate Attending Unavailable Allergies Allergy Classification Reported Allergen(s) Allergy Type Date of Onset Reaction(s) Facility black walnut pollen extract (2 sources) black walnut pollen extract Drug Allergy [facility] Repository (19 sources) Hmg-Coa Reductase Inhibitors (Statins); Translations: [Statins] Allergy to drug (finding) Myalgia -[facility] [facility] 250 DO Work Phone: (17 sources) atorvastatin; Translations: [atorvastatin] Drug Allergy 1 Myalgia, Unknown [facility] (17 sources) cerivastatin; Translations: [cerivastatin] Drug Allergy 1 Myalgia, Unknown [facility] (17 sources) colesevelam; Translations: [colesevelam] Drug Allergy 1 Unknown (qualifier value), Unknown [facility] (20 sources) ezetimibe; Translations: [ezetimibe] Drug Allergy 1 Myalgia, Unknown [facility] (20 sources) fluvastatin; Translations: [fluvastatin] Drug Allergy 1 Myalgia, Unknown [facility] (17 sources) metaxalone; Translations: [metaxalone] Drug Allergy 1 Unknown (qualifier value), Unknown [facility] (17 sources) Simvastatin; Translations: [simvastatin] Drug Allergy 1 Myalgia, Unknown [facility] (8 sources) Seasonal allergy; Translations: [SEASONAL ALLERGIES] Allergy to substance 1 Other: See Comments [facility] (12 sources) Lisinopril; Translations: [lisinopril] Drug Allergy 4 Cough [facility] 3 Repository (8 sources) Angiotensin Receptor Blockers; Translations: [Angiotensin Receptor Blockers] Allergy to drug (finding) Cough -[facility] 250 DO Work Phone: (15 sources) atorvastatin Drug Allergy 1 Unknown [facility] (15 sources) cerivastatin Drug Allergy 1 [facility] (15 sources) colesevelam Drug Allergy 1 [facility] (15 sources) ezetimibe Drug Allergy 1 [facility] (15 sources) Lisinopril Propensity to adverse reactions 3 Cough [facility] (15 sources) Losartan Drug Allergy 3 Cough [facility] (15 sources) metaxalone Drug Allergy 1 Unknown [facility] (15 sources) Simvastatin Allergy to substance 1 [facility] (9 sources) Hkkvmgk-FOV-BxK Reductase Inhibitor; Translations: [Csqmucy-LGN-IyR Reductase Inhibitor] Propensity to adverse reactions 4 [facility] (3 sources) No Known Medication Allergies; Translations: [No Known Medication Allergies] Propensity to adverse reactions (disorder) [facility] Repository (1 source) Hmg-Coa Reductase Inhibitors (Statins); Translations: [HRBRDLM-VRX-ECV REDUCTASE INHIBITORS] Propensity to adverse reactions to drug (disorder) 4 [facility] 3 Repository (1 source) ARB-ANGIOTENSIN RECEPTOR ANTAGONIST; Translations: [ARB-ANGIOTENSIN RECEPTOR ANTAGONIST] Propensity to adverse reactions to drug (disorder) 4 [facility] 3 Repository Medications Current Medications Medication Drug Class(es) Dates Sig (Normalized) Sig (Original) 3 ML semaglutide 2.68 MG/ML Pen Injector [Ozempic] (3 sources) Start: 04-01-2024 Ozempic 8 mg/3 mL (2 mg dose) subcutaneous solution Refills(s) 0 Start Date: 04/01/24 Status: Ordered Albuterol (14 sources) beta2-Adrenergic Agonist Start: 06-10-2023 albuterol Refills(s) 0 Start Date: 06/10/23 Status: Ordered take 1-2 puff(s) by inhalation every four to six hours as needed Albuterol Sulfate HFA 108 (90 Base) MCG/ACT Inhalation Aerosol Solution INHALE 1 TO 2 PUFFS EVERY 4 TO 6 HOURS NEEDED. Quantity: 0 Refills: 0 Ordered: 28-Jan-2023 DO Active amLODIPine 5 mg oral tablet (20 sources) Dihydropyridine Calcium Channel Jewel Start: 08-25-2024 take 1 tablet by mouth at mealtime amLODIPine (Norvasc) 5 MG tablet Indications: Primary hypertension (CMS/HCC) Take 1 tablet (5 mg) by mouth at noon. Take with meals 90 tablet 1 08/25/2024 Active Start: 08-25-2024 take 1 tablet by rose th at mealtime amLODIPine (Norvasc) 5 MG tablet Indications: Primary hypertension (CMS/HCC) Take 1 tablet (5 mg) by mouth at noon. Take with meals 90 tablet 1 08/25/2024 Active Start: 08-25-2017 End: 08-25-2024 take 1 tablet by mouth at mealtime amLODIPine (Norvasc) 5 MG tablet Indications: Primary hypertension (CMS/HCC) Take 1 tablet (5 mg) by mouth at noon. Take with meals 90 tablet 1 02/12/2024 08/25/2024 Discontinued (Reorder) Comment on above: Take 1 tablet by rose th once daily. aspirin 81 mg oral tablet (20 sources) Platelet Aggregation Inhibitor, Nonsteroidal Anti-inflammatory Drug Start: 05-01-2019 take 1 tablet by mouth once daily aspirin 81 mg oral tablet 81 mg = 1 tab(s), Oral, Daily, Refills(s) 0, Prophylaxis Start Date: 05/01/19 Status: Ordered Start: 08-25-2017 take 1 tablet by rose th once daily Aspirin (Aspir-81) 81 mg Tablet,Delayed Release (Dr/Ec) Active 81 MG PO Daily August 25, 2017 12:00am benoxinate hydrochloride 4 mg/ml / fluorescein sodium 2.5 mg/ml ophthalmic solution (4 sources) Diagnostic Dye Start: 08-31-2022 End: 09-01-2022 fluorescein-benoxinate 0.25-0.4 % 1 Drop (FLURESS) Start: 07-19-2022 End: 07-20-2022 fluorescein-benoxinate 0.25- 0.4 % 1 Drop (FLURESS) Start: 06-01-2022 End: 06-02-2022 fluorescein-benoxinate 0.25- 0.4 % 1 Drop (FLURESS) brimonidine tartrate 2 mg/ml ophthalmic solution (2 sources) alpha-Adrenergic Agonist Start: 07-19-2022 End: 07-20-2022 brimonidine 0.2 % 1 Drop (ALPHAGAN) doxazosin 4 mg oral tablet (20 sources) alpha-Adrenergic Jewel Start: 08-25-2024 take 1 tablet by mouth at bedtime doxazosin (Cardura) 4 MG tablet Indications: Benign prostatic hyperplasia without lower urinary tract symptoms Take 1 tablet (4 mg) by mouth at bedtime 90 tablet 2 08/25/2024 Active Start: 08-25-2024 take 1 tablet by rose th at bedtime doxazosin (Cardura) 4 MG tablet Indications: Benign prostatic hyperplasia without lower urinary tract symptoms Take 1 tablet (4 mg) by mouth at bedtime 90 tablet 2 08/25/2024 Active Start: 08-29-2023 End: 08-25-2024 take 1 tablet by mouth at bedtime Doxazosin 4 mg tablet Active 4 MG PO Bedtime September 29, 2023 12:00am Start: 02-21-2023 take 1 tablet by rose th once daily Doxazosin Mesylate 4 MG Oral Tablet TAKE 1 TABLET DAILY. Quantity: 90 Refills: 3 Ordered: 06-May-2023 Shanthi Lancaster MD Start : 21-Feb-2023 Active Start: 12-24-2022 End: 09-18-2023 doxazosin 2 mg Tab Refills(s ) 0 Start Date: 06/10/23 Status: Ordered ezetimibe 10 mg oral tablet (20 sources) Dietary Cholesterol Absorption Inhibitor Start: 08-25-2024 take 1 tablet by mouth at bedtime ezetimibe (Zetia) 10 MG tablet Indications: Mixed hyperlipidemia (CMS/HCC) Take 1 tablet (10 mg) by mouth at bedtime 90 tablet 1 08/25/2024 Active Start: 08-25-2024 take 1 tablet by rose th at bedtime ezetimibe (Zetia) 10 MG tablet Indications: Mixed hyperlipidemia (CMS/HCC) Take 1 tablet (10 mg) by mouth at bedtime 90 tablet 1 08/25/2024 Active Start: 08-09-2022 End: 08-25-2024 take 1 tablet by mouth once daily Ezetimibe 10 mg tablet Active 10 MG PO Daily September 29, 2023 12:00am 24 hr metoprolol succinate 25 mg extended release oral tablet (10 sources) beta-Adrenergic Jewel Start: 08-28-2024 take 1 tablet by mouth once daily in the morning Metoprolol Succinate 25 mg tablet extended release 24 hr Active 25 MG PO Every morning August 28, 2024 12:00am Start: 08-25-2024 take 1 tablet by rose th once daily metoprolol succinate XL (Toprol-XL) 25 MG 24 hr tablet Indications: Type 2 diabetes mellitus with other specified complication, without long-term current use of insulin (CMS/HCC) , Primary hypertension (CMS/HCC) Take 1 tablet (25 mg) by mouth Daily Do not crush or chew. 90 tablet 1 08/25/2024 Active Start: 08-25-2024 take 1 tablet by rose th once daily metoprolol succinate XL (Toprol-XL) 25 MG 24 hr tablet Indications: Type 2 diabetes mellitus with other specified complication, without long-term current use of insulin (CMS/HCC) , Primary hypertension (CMS/HCC) Take 1 tablet (25 mg) by mouth Daily Do not crush or chew. 90 tablet 1 08/25/2024 Active Start: 07-29-2024 End: 08-25-2024 take 1 tablet by mouth once daily metoprolol succinate XL (Toprol-XL) 25 MG 24 hr tablet Indications: Primary hypertension (CMS/HCC) , Type 2 diabetes mellitus with other specified complication, without long-term current use of insulin (CMS/HCC) Take 1 tablet (25 mg) by mouth Daily Do not crush or chew. 90 tablet 1 07/29/2024 08/25/2024 Discontinued (Reorder) Multiple Vitamins-Minerals ( CENTRUM ADULTS PO) (15 sources) Multiple Vitamin s-Minerals (CENTRUM ADULTS PO) Take by mouth. Active Multiple Vitamin s-Minerals (CENTRUM ADULTS PO) Take by mouth. 0 Active Jhenulvm-Fgn-Qx-Lycopen-Lute in (Centrum Silver) 0.4 mg-300 mcg- 250 mcg tablet (8 sources) Start: 09-29-2023 take 1 tablet by mouth once daily Xkgufqvw-Zpr-Uf-Lycopen-Lutein (Centrum Silver) 0.4 mg-300 mcg- 250 mcg tablet Active 1 TAB PO Daily September 29, 2023 1:00am Start: 09-29-2023 take 1 tablet by rose th once daily Pmbzwinv-Zbl-Yf-Lycopen-Lutein (Centrum Silver) 0.4 mg-300 mcg- 250 mcg tablet Active 1 TAB PO Daily September 29, 2023 12:00am Multivitamin preparation (5 sources) Start: 06-10-2023 multivitamin Refill(s) 0 Start Date: 06/10/23 Status: Ordered oxyCODONE hydrochloride 5 mg oral tablet (1 source) Opioid Agonist Start: 03-26-2024 End: 03-31-2024 take 1 tablet by mouth every six hours as needed for pain oxyCODONE 5 mg Tab 5 mg = 1 tab(s), Oral, q6hr, PRN for pain, X 5 day(s), # 20 tab(s), Refills(s) 0, Pharmacy: [facility]/pharmacy #[id number], 187, cm, 03/26/24 16:17:00 EDT, Height/Length Dosing, 101.4, kg, 03/26/24 16:17:00 EDT, Weight Dosing Start Date: 03/26/24 Stop Date: 03/31/24 Status: Ordered potassium citrate 15 meq extended release oral tablet (20 sources) Start: 08-25-2024 take 1 tablet by mouth in the morning potassium citrate CR (Urocit-K-15) 15 mEq ER tablet Indications: Primary hypertension (CMS/HCC) Take 1 tablet (15 mEq) by mouth in the morning and 1 tablet (15 mEq) in the evening. Take with meals. 120 tablet 2 08/25/2024 Active Start: 08-25-2024 take 1 tablet by rose th in the morning potassium citrate CR (Urocit-K-15) 15 mEq ER tablet Indications: Primary hypertension (CMS/HCC) Take 1 tablet (15 mEq) by mouth in the morning and 1 tablet (15 mEq) in the evening. Take with meals. 120 tablet 2 08/25/2024 Active Start: 06-26-2023 take 2 tablets by [facility] twice daily potassium citrate 15 mEq oral tablet, extended release 30 mEq = 2 tab(s), Oral, BID, # 360 tab(s), Refills(s) 3, Pharmacy: [facility], 187, cm, 06/10/23 10:38:00 EDT, Height/Length Dosing, 99, kg, 06/10/23 10:38:00 EDT, Weight Dosing Start Date: 06/26/23 Status: Ordered Start: 04-23-2022 take 2 tablets by [facility] twice daily Urocit-K 15 mEq oral tablet, extended release 30 mEq = 2 tab(s), Oral, BID, # 360 tab(s), Refills(s) 3, Pharmacy: [facility], 187, cm, 04/23/22 10:31:00 EDT, Height/Length Dosing, 99, kg, 04/23/22 10:31:00 EDT, Weight Dosing Start Date: 04/23/22 Status: Ordered Start: 08-25-2017 End: 08-25-2024 take 1 tablet by mouth twice daily Potassium Citrate 15 MEQ tablet extended release Active 15 MEQ PO Twice daily August 25, 2017 12:00am Start: 08-25-2017 take 15 mg by mouth twice shala y Potassium Citrate Active 15 MG PO Twice daily August 25, 2017 12:00am Start: 08-25-2017 take 15 mg by mouth once daily Potassium Citrate Active 15 MG PO Daily August 25, 2017 12:00am proparacaine hydrochloride 5 mg/ml ophthalmic solution (3 sources) Local Anesthetic Start: 08-31-2022 End: 09-01-2022 proparacaine 0.5 % 1 Drop (ALCAINE) Start: 06-01-2022 End: 06-02-2022 proparacaine 0.5 % 1 Drop (A LCAINE) rosuvastatin calcium 40 mg oral tablet (20 sources) HMG-CoA Reductase Inhibitor Start: 08-25-2024 take 1 tablet by mouth at bedtime rosuvastatin (Crestor) 40 MG tablet Indications: Mixed hyperlipidemia (CMS/HCC) Take 1 tablet (40 mg) by mouth at bedtime 90 tablet 1 08/25/2024 Active Start: 08-25-2024 take 1 tablet by rose th at bedtime rosuvastatin (Crestor) 40 MG tablet Indications: Mixed hyperlipidemia (CMS/HCC) Take 1 tablet (40 mg) by mouth at bedtime 90 tablet 1 08/25/2024 Active Start: 09-29-2023 End: 08-25-2024 take 1 tablet by mouth once daily at bedtime Rosuvastatin 40 mg tablet Active 40 MG PO Daily at bedtime September 29, 2023 12:00am Start: 03-04-2023 rosuvastatin ( Crestor) 40 MG tablet Indications: Mixed hyperlipidemia (CMS/HCC) TAKE 1 TABLET BY MOUTH AT NIGHT 90 tablet 3 03/04/2023 Active Start: 05-01-2019 take 1 tablet by rose th once daily Crestor 20 mg Tab 20 mg = 1 tab(s), Oral, Daily, Refills(s) 0, High cholesterol Start Date: 05/01/19 Status: Ordered Comment on above: Take 20 mg by mouth once daily. Semaglutide (Ozempic) 2 mg/dose (8 mg/3 mL) pen injector (1 source) Start: 5 inject 2 mg by subcutaneous injection every week Semaglutide (Ozempic) 2 mg/dose (8 mg/3 mL) pen injector Active 2 MG SUBCUT every week August 28, 2024 12:00am semaglutide (Ozempic) 4 MG/3ML solution pen-injector (2 sources) Start: 4 inject 1 mg by subcutaneous injection every week semaglutide (Ozempic) 4 MG/3ML solution pen-injector Indications: Type 2 diabetes mellitus with other specified complication, without long-term current use of insulin (CMS/HCC) Inject 1 mg under the skin 1 (one) time per week 1 each 08/14/2023 Active Semaglutide, 2 MG/DOSE, 8 MG/3ML solution pen-injector (15 sources) Start: 5 inject 2 mg by subcutaneous injection every week Semaglutide, 2 MG/DOSE, 8 MG/3ML solution pen-injector Indications: Type 2 diabetes mellitus with other specified complication, without long-term current use of insulin (CMS/HCC) Inject 2 mg under the skin 1 (one) time per week 9 mL 3 08/25/2024 Active Start: 07-14-2024 End: 08-25-2024 inject 2 mg by subcutaneous injection every week Semaglutide, 2 MG/DOSE, 8 MG/3ML solution pen-injector Indications: Type 2 diabetes mellitus with other specified complication, without long-term current use of insulin (CMS/HCC) Inject 2 mg under the skin 1 (one) time per week 9 mL 3 07/14/2024 08/25/2024 Discontinued (Reorder) Start: 07-14-2024 inject 2 mg by subcu taneous injection every week Semaglutide, 2 MG/DOSE, 8 MG/3ML solution pen-injector Indications: Type 2 diabetes mellitus with other specified complication, without long-term current use of insulin (CMS/HCC) Inject 2 mg under the skin 1 (one) time per week 9 mL 3 07/14/2024 Active Start: 01-09-2024 inject 2 mg by subcu taneous injection every week Semaglutide, 2 MG/DOSE, 8 MG/3ML solution pen-injector Indications: Type 2 diabetes mellitus with other specified complication, without long-term current use of insulin (CMS/HCC) Inject 2 mg under the skin 1 (one) time per week 3 mL 11 01/09/2024 Active tamsulosin hydrochloride 0.4 mg oral capsule (20 sources) alpha-Adrenergic Jewel Start: 08-25-2024 take 1 capsule by mouth every twenty-four hours at bedtime tamsulosin (Flomax) 0.4 MG 24 hr capsule Indications: Benign prostatic hyperplasia without lower urinary tract symptoms Take 1 capsule (0.4 mg) by mouth at bedtime 90 capsule 1 08/25/2024 Active Start: 08-25-2024 take 1 capsule by mo ut every twenty-four hours at bedtime tamsulosin (Flomax) 0.4 MG 24 hr capsule Indications: Benign prostatic hyperplasia without lower urinary tract symptoms Take 1 capsule (0.4 mg) by mouth at bedtime 90 capsule 1 08/25/2024 Active Start: 09-29-2023 End: 08-25-2024 take 1 capsule by mouth at bedtime Tamsulosin 0.4 mg capsule Active 0.4 MG PO Bedtime September 29, 2023 12:00am Start: 06-26-2023 take 1 capsule by [facility] once daily tamsulosin 0.4 mg Cap 0.4 mg = 1 cap(s), Oral, Daily, # 90 cap(s), Refills(s) 3, Pharmacy: [facility], 187, cm, 04/01/24 14:07:00 EDT, Height/Length Dosing, 102, kg, 04/01/24 14:07:00 EDT, Weight Dosing Start Date: 04/14/24 Status: Ordered Start: 04-23-2022 take 1 capsule by [facility] once daily at bedtime Flomax 0.4 mg Cap 0.4 mg = 1 cap(s), Oral, Daily, Take one tab qhs, # 90 cap(s), Refills(s) 0, Pharmacy: [facility] ([facility] ), 187, cm, 04/23/22 10:31:00 EDT, Height/Length Dosing, 99, kg, 04/23/22 10:31:00 EDT, Weight Dosing Start Date: 02/10/23 Status: Ordered take 1 capsule by [facility] every twenty-four hours in the morning tamsulosin (Flomax) 0.4 MG 24 hr capsule Take 0.4 mg by mouth in the morning. 0 Active Comment on above: Take 0.4 mg by mouth once daily. valACYclovir 500 mg oral tablet (7 sources) Herpesvirus Nucleoside Analog DNA Polymerase Inhibitor, Herpes Simplex Virus Nucleoside Analog DNA Polymerase Inhibitor, Herpes Zoster Virus Nucleoside Analog DNA Polymerase Inhibitor Start: 5 End: 5 take 1 tablet by mouth in the morning valACYclovir (Valtrex) 500 MG tablet Indications: Recurrent cold sores Take 1 tablet (500 mg) by mouth in the morning and 1 tablet (500 mg) before bedtime. Do all this for 12 days. 24 tablet 08/13/2024 08/25/2024 Active Zofran ODT 4 mg Tab-Dis (4 sources) Start: 4 take 1 tablet by mouth every eight hours Zofran ODT 4 mg Tab-Dis 4 mg = 1 tab(s), Oral, q8hr, # 12 tab(s), Refills(s) 0, Pharmacy: [facility]/pharmacy #[id number], 187, cm, 03/26/24 16:17:00 EDT, Height/Length Dosing, 101.4, kg, 03/26/24 16:17:00 EDT, Weight Dosing Start Date: 03/26/24 Status: Ordered Completed/Discontinued Medications Medication Drug Class(es) Dates Sig (Normalized) Sig (Original) amoxicillin 875 mg oral tablet (7 sources) Penicillin-class Antibacterial Start: 10-02-2021 take 1 tablet by mouth once daily amoxicillin (AMOXIL) 875 mg tablet Take 1 tablet by mouth once daily. 0 10/02/2021 Active Comment on above: Take 1 tablet by rose th once daily. azithromycin 250 mg oral tablet (1 source) Macrolide Antimicrobial Start: 06-11-2022 Azithromycin 250 MG Oral Tablet TAKE 2 TABLETS BY MOUTH TODAY, THEN TAKE 1 TABLET DAILY FOR 4 DAYS Quantity: 6 Refills: 0 Ordered: 11-Jun-2022 DO Start : 11-Jun-2022 Complete bisoprolol fumarate 10 mg oral tablet (10 sources) beta-Adrenergic Jewel Start: 09-29-2023 End: 07-31-2024 take 1 tablet by mouth once daily Bisoprolol Fumarate 10 mg tablet Discontinued 10 MG PO Daily September 29, 2023 12:00am July 31, 2024 11:03am Start: 09-18-2023 take 1 tablet by rose th in the morning bisoprolol (Zebeta) 10 MG tablet Indications: Primary hypertension (CMS/HCC) Take 1 tablet (10 mg) by mouth in the morning. 30 tablet 3 09/18/2023 Active bisoprolol fumarate 10 mg / hydroCHLOROthiazide 6.25 mg oral tablet (20 sources) Thiazide Diuretic, beta-Adrenergic Jewel Start: 08-25-2017 End: 09-29-2023 take 1 tablet by mouth once daily Bisoprolol-Hydrochlorothiazide 10-6.25 tablet Discontinued 10 MG PO Daily August 25, 2017 12:00am September 29, 2023 12:43am take 1 tablet by rose th once daily Bisoprolol-hydroCHLOROthiazide 5-6.25 MG Oral Tablet TAKE 1 TABLET DAILY. Quantity: 90 Refills: 0 Ordered: 04-Feb-2023 Shanthi Lancaster MD Active DOSE DECREASED Comment on above: Take 1 tablet by rose th once daily. cefdinir 300 mg oral capsule (1 source) Cephalosporin Antibacterial Start: take 1 capsule by mouth twice daily Cefdinir 300 MG Oral Capsule TAKE 1 CAPSULE BY MOUTH TWICE A DAY FOR 7 DAYS Quantity: 14 Refills: 0 Ordered: 23-Oct-2022 DO Start : 23-Oct-2022 Complete cephalexin 500 mg oral capsule (6 sources) Cephalosporin Antibacterial Start: End: take 1 capsule by mouth twice daily Cephalexin 500 mg capsule Discontinued 500 MG PO Twice daily 31 05February 19, 2024 11:00pm July 31, 2024 11:02am cetirizine hydrochloride 5 mg oral tablet (2 sources) Histamine-1 Receptor Antagonist Start: take 1 tablet by mouth once daily Cetirizine HCl - 5 MG Oral Tablet TAKE 1 TABLET DAILY DIRECTED. Quantity: 30 Refills: 6 Ordered: 24-Dec-2022 Shanthi Lancaster MD Start : 24-Dec-2022 Active ciprofloxacin 500 mg oral tablet (1 source) Quinolone Antimicrobial Start: take 1 tablet by mouth once daily Cipro 500 mg Tab 500 mg = 1 tab(s), Oral, Daily, Take 1 tablet the day before the procedure and 1 tablet after the procedure, # 2 tab(s), Refills(s) 0, Pharmacy: [facility]/pharmacy #[id number], 187, cm, 04/01/24 14:07:00 EDT, Height/Length Dosing, 102, kg, 04/01/24 14:07:00 EDT, Weight Dosing Start Date: 04/07/24 Status: Ordered clarithromycin 500 mg oral tablet (7 sources) Macrolide Antimicrobial Start: take 1 tablet by mouth once daily clarithromycin (BIAXIN) 500 mg Take 1 tablet by mouth once daily. 0 11/20/2021 Active Comment on above: Take 1 tablet by rose once daily. cyclobenzaprine hydrochloride 10 mg oral tablet (17 sources) Muscle Relaxant Start: 018 End: take 1 tablet by mouth three times daily as needed for muscle spasms Cyclobenzaprine 10 mg tablet Discontinued 10 MG PO Three times daily as needed for muscle spasm August 25, 2017 12:00am September 29, 2023 12:46am fluticasone propionate 0.05 mg/actuat metered dose nasal spray (20 sources) Corticosteroid Start: End: take 1 spray(s) nasal route once daily as needed Fluticasone Propionate (24 Hour Allergy Relief) 50 mcg/actuation spray,suspension Discontinued 1 SPRAY INTRANASAL Daily as needed for allergic symptoms September 29, 2023 12:00am July 31, 2024 11:02am administer into each nostril Start: 06-10-2023 fluticasone pr opionate Inhalation, Refills(s) 0 Start Date: 06/10/23 Status: Ordered take 2 spray(s) nasa l route once daily Flonase 50 MCG/ACT SUSP USE 2 SPRAYS IN EACH NOSTRIL ONCE DAILY Quantity: 0 Refills: 0 Ordered: 04-Feb-2023 DO Active 30 actuat fluticasone furoate 0.1 mg/actuat / umeclidinium 0.0625 mg/actuat / vilanterol 0.025 mg/actuat dry powder inhaler (2 sources) Anticholinergic, Corticosteroid, beta2-Adrenergic Agonist Start: 10-23-2022 take 1 puff(s) by inhalation once daily Trelegy Ellipta 100-62.5-25 MCG/ACT Inhalation Aerosol Powder Breath Activated INHALE 1 PUFF ONCE DAILY Quantity: 60 Refills: 0 Ordered: 23-Oct-2022 DO Start : 23-Oct-2022 Active hydroCHLOROthiazide 25 mg / triamterene 37.5 mg oral tablet (7 sources) Potassium-sparing Diuretic, Thiazide Diuretic Start: 02-21-2023 take 0.5 tablet by mouth once daily Triamterene-HC TZ 37.5-25 MG Oral Tablet TAKE 1/2 TABLET DAILY. Quantity: 45 Refills: 3 Ordered: 21-Feb-2023 Shanthi Lancaster MD Start : 21-Feb-2023 Active new start End: 09-18-2023 take 1 tablet by mouth in the morning triamterene-hydrochlorothiazide (Maxzide -25) 37.5-25 MG tablet Take 0.5 tablets by mouth in the morning. 0.5 mg tab in am. 0 09/18/2023 Discontinued (Therapy completed) ibuprofen 800 mg oral tablet (17 sources) Nonsteroidal Anti-inflammatory Drug Start: 08-25-2017 End: 09-29-2023 take 1 tablet by mouth every eight hours as needed for pain Ibuprofen 800 mg tablet Discontinued 800 MG PO Q8H as needed for pain August 25, 2017 7:19pm September 29, 2023 12:45am 24 hr isosorbide mononitrate 30 mg extended release oral tablet (20 sources) Nitrate Vasodilator Start: 08-25-2017 End: 07-31-2024 take 1 tablet by mouth once daily, then take 1 tablet by mouth every twenty-four hours Isosorbide Mononitrate 30 MG tablet extended release 24 hr Discontinued 30 MG PO Daily August 25, 2017 12:00am July 31, 2024 11:01am Comment on above: Take 1 tablet by rose th every morning. ketorolac tromethamine 5 mg/ml ophthalmic solution (6 sources) Nonsteroidal Anti-inflammatory Drug, Cyclooxygenase Inhibitor Start: 07-20-2022 Ketorolac Tromethamine 0.5 % Ophthalmic Solution USE 1 DROP IN THE LEFT EYE TWICE DAILY. *USE FOR 1 WEEK AFTER LASER THEN STOP* Quantity: 5 Refills: 0 Ordered: 20-Jul-2022 DO Start : 20-Jul-2022 Complete Start: 07-20-2022 take 1 drop(s) into the eye(s) twice daily keTORolac (ACULAR) 0.5 % ophthalmic solution Use 1 Drop in the left eye twice daily. 4 mL 0 07/20/2022 Active Comment on above: Use 1 Drop in the le ft eye twice daily. lisinopril 10 mg oral tablet (20 sources) Angiotensin Converting Enzyme Inhibitor Start: 8 End: 4 take 1 tablet by mouth once daily Lisinopril 10 MG tablet Discontinued 10 MG PO Daily August 25, 2017 12:00am September 29, 2023 12:45am Comment on above: Take 1 tablet by rose th once daily. Multi Vitamin TABS (19 sources) Multi Vitamin TA BS TAKE 1 TABLET DAILY. Quantity: 0 Refills: 0 Ordered: 24-Jul-2021 DO Active niacin 500 mg extended release oral capsule (20 sources) Nicotinic Acid Start: 9 take 1 capsule by mouth once daily niacin 500 mg CR capsule Take 500 mg by mouth once daily. 0 05/01/2019 Active Start: 08-25-2017 End: 09-29-2023 take 1 tablet by mouth once daily Niacin 500 MG tablet extended release 24 hr Discontinued 500 MG PO Daily August 25, 2017 12:00am September 29, 2023 12:45am Comment on above: Take 500 mg by mouth once daily. nitroglycerin 0.4 mg sublingual tablet (19 sources) Nitrate Vasodilator Nitroglyceri n 0.4 MG Sublingual Tablet Sublingual TAKE 1 TABLET BY MOUTH UNDER TONGUE FOR CHEST PAIN, REPEAT EVERY 5 MINUTES. IF 3RD DOSE NEEDED CALL 911 OR GO TO ER. Quantity: 25 Refills: 3 Ordered: 30-Nov-2021 Eduardo Brock DO Active phenylephrine hydrochloride 25 mg/ml ophthalmic solution (1 source) alpha-1 Adrenergic Agonist Start: 06-01-20 End: 06-02-20 PHENYLephrine 2.5 % 1 Drop (AK-DILATE, DONNA-SYNEPHRINE) pravastatin sodium 40 mg oral tablet (17 sources) HMG-CoA Reductase Inhibitor Start: 08-25-19 18 End: 09-29-19 24 take 1 tablet by mouth once daily Pravastatin 40 mg Tablet Discontinued 40 MG PO Daily August 25, 2017 12:00am September 29, 2023 12:44am predniSONE 10 mg oral tablet (8 sources) Start: 10-24-19 23 take 2 tablets by mouth once daily, then take 1 tablet by mouth once daily predniSONE 10 MG Oral Tablet TAKE 2 TABLETS DAILY FOR 4 DAYS, THEN 1 TABLET DAILY FOR 4 DAYS Quantity: 12 Refills: 0 Ordered: 23-Oct-2022 DO Start : 23-Oct-2022 Complete Start: 10-02-2021 take 1 tablet by rose th once daily predniSONE (DELTASONE) 20 mg tablet Take 1 tablet by mouth once daily. 0 10/02/2021 Active Comment on above: Take 1 tablet by rose once daily. Semaglutide (10 sources) Start: 4 End: 5 inject 1 mg by subcutaneous injection every week Semaglutide (Ozempic) 1 mg/dose (4 mg/3 mL) pen injector Discontinued 2 MG SUBCUT every week July 31, 2024 11:02am August 28, 2024 9:52am Start: 07-31-2024 inject 1 mg by subcu taneous injection every week Semaglutide (Ozempic) 1 mg/dose (4 mg/3 mL) pen injector Active 2 MG SUBCUT every week July 31, 2024 11:02am Start: 09-29-2023 End: 07-31-2024 inject 1 mg by subcutaneous injection every week Semaglutide (Ozempic) 1 mg/dose (4 mg/3 mL) pen injector Discontinued 1 MG SUBCUT every week September 29, 2023 12:00am July 31, 2024 11:03am Start: 09-29-2023 inject 1 mg by subcu taneous injection every week Semaglutide (Ozempic) 1 mg/dose (4 mg/3 mL) pen injector Active 1 MG SUBCUT every week September 29, 2023 1:00am Start: 09-29-2023 inject 1 mg by subcu taneous injection every week Semaglutide (Ozempic) 1 mg/dose (4 mg/3 mL) pen injector Active 1 MG SUBCUT every week September 29, 2023 12:00am 1 ml triamcinolone acetonide 40 mg/ml prefilled syringe (10 sources) Corticosteroid Start: 07-29-2024 End: 07-29-2024 triamcinolone acetonide (Kenalog-40) injection 40 mg Start: 07-29-2024 End: 07-29-2024 triamcinolone acetonide (Kenalog-40) injection 40 mg Start: 07-29-2024 End: 07-29-2024 40 mg, Intra-articular, Once , On Sat07/29/24 at 1100, For 1 dose Start: 07-29-2024 End: 07-29-2024 40 mg, Intra-articular, Once , On Sat07/29/24 at 1100, For 1 dose Start: 05-12-2024 End: 05-12-2024 triamcinolone acetonide (Kenalog-40) injection 40 mg Start: 05-12-2024 End: 05-12-2024 triamcinolone acetonide (Kenalog-40) injection 40 mg Start: 05-12-2024 End: 05-12-2024 inject 40 mg by intramuscular injection once 40 mg, Intramuscular, Once, On Sat05/12/24 at 0930, For 1 dose Start: 05-12-2024 End: 05-12-2024 triamcinolone acetonide (Kenalog-40) injection 40 mg Start: 05-12-2024 End: 05-12-2024 triamcinolone acetonide (Kenalog-40) injection 40 mg Start: 05-12-2024 End: 05-12-2024 inject 40 mg by intramuscular injection once 40 mg, Intramuscular, Once, On Sat05/12/24 at 0930, For 1 dose tropicamide 10 mg/ml ophthalmic solution (1 source) Anticholinergic Start: 06-01-2022 End: 06-02-2022 tropicamide 1 % 1 Drop (MYDRIACYL) Problems Active Problems Problem Classification Problem Date Documented Da te Episodic/Chronic Administrative/social admission (20 sources) Follow-up status; Translations: [Other specified counseling] Onset: 4 Resolved: 4 08-13-2023 Episodic Asthma (7 sources) Uncomplicated asthma; Translations: [Unspecified asthma, uncomplicated] Onset: 2 06-01-2022 Chronic Coagulation and hemorrhagic disorders (20 sources) Thrombocytopenic disorder; Translations: [Thrombocytopenia, unspecified] Onset: 2 06-01-2022 Chronic Conduction disorders (7 sources) Chronotropic incompetence; Translations: [Other specified conduction disorders] Chronic Coronary atherosclerosis and other heart disease (20 sources) Coronary atherosclerosis; Translations: [Coronary atherosclerosis of [place] coronary artery] Onset: 6 06-01-2022 Chronic Diabetes mellitus with complications (1 source) Type 2 diabetes mellitus with other specified complication; Translations: [Type 2 diabetes mellitus with other specified complication] Onset: 4 Chronic Diabetes mellitus without complication (20 sources) Type 2 diabetes mellitus; Translations: [Type 2 diabetes mellitus without complications] Onset: 3 07-12-2023 Chronic Disorders of lipid metabolism (20 sources) Hyperlipidemia, unspecified; Translations: [Hyperlipidemia] Onset: 8 05-01-2019 Chronic Essential hypertension (20 sources) Essential (primary) hypertension; Translations: [Essential hypertension] Onset: 5 05-01-2019 Chronic Fluid and electrolyte disorders (2 sources) Hyperkalemia; Translations: [Hyperpotassemia] Episodic Gastrointestinal hemorrhage (13 sources) Gastrointestinal hemorrhage; Translations: [Gastrointestinal hemorrhage, unspecified] Onset: 2 05-01-2019 Episodic Genitourinary symptoms and ill-defined conditions (20 sources) Nocturia; Translations: [Nocturia] Onset: 2 Episodic Glaucoma (19 sources) Low tension glaucoma of left eye; Translations: [Low-tension glaucoma, left eye, indeterminate stage] Onset: 2 Chronic Hyperplasia of prostate (20 sources) Benign prostatic hyperplasia without lower urinary tract symptoms; Translations: [Benign prostatic hypertrophy with outflow obstruction] Onset: 6 Chronic Immunizations and screening for infectious disease (3 sources) Patient encounter status; Translations: [Other specified vaccination] 08-25-2024 Episodic Inflammatory conditions of male genital organs (13 sources) Epididymitis; Translations: [Epididymitis] Onset: 2 05-01-2019 Episodic Nonspecific chest pain (20 sources) Chest pain; Translations: [Chest pain, unspecified] Onset: 2 06-01-2022 Episodic Osteoarthritis (16 sources) Localized, primary osteoarthritis of the hand; Translations: [Primary osteoarthritis, unspecified hand] Onset: 0 06-01-2022 Chronic Other aftercare (1 source) long term (current) use of anticoagulants; Translations: [INFORMATION TECH CURRNT USE ANTICOAGULANTS] Onset: 1 Episodic Other aftercare (1 source) Other detention (current) drug therapy; Translations: [OTH INFORMATION TECH CURRENT DRUG THERAPY] Onset: 1 Episodic Other aftercare (11 sources) Treatment changed; Translations: [Long-term (current) use of other medications] Episodic Other circulatory disease (12 sources) Cardiac function test normal; Translations: [Normal cardiac ejection fraction] Episodic Other circulatory disease (8 sources) Low blood pressure; Translations: [Hypotension, unspecified] Episodic Other connective tissue disease (2 sources) Trochanteric bursitis; Translations: [Trochanteric bursitis, left hip] 07-29-2024 Episodic Other eye disorders (1 source) Dermatochalasis of unspecified eye, unspecified eyelid; Translations: [Dermatochalasis of unspecified eye, unspecified eyelid] Onset: 4 Episodic Other lower respiratory disease (11 sources) Cough; Translations: [Cough] Episodic Other lower respiratory disease (20 sources) Dyspnea on exertion; Translations: [Other forms of dyspnea] Onset: 3 Resolved: 4 02-08-2023 Episodic Other lower respiratory disease (2 sources) Other forms of dyspnea; Translations: [Other respiratory abnormalities] 07-31-2024 Episodic Other male genital disorders (14 sources) Retrograde ejaculation; Translations: [Retrograde ejaculation] Onset: 2 Episodic Other male genital disorders (13 sources) Pain in testicle; Translations: [Testicular pain, unspecified] Onset: 2 06-29-2019 Episodic Other nervous system disorders (7 sources) Plantar nerve lesion; 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, unspecified lower limb] Onset: 9 06-01-2022 Chronic Other non-traumatic joint disorders (2 sources) Hip pain; Translations: [Pain in left hip] 07-29-2024 Episodic Other nutritional; endocrine; and metabolic disorders (19 sources) Overweight in adulthood with body mass index of 25 or more but less than 30; Translations: [Overweight] Episodic Other screening for suspected conditions (not mental disorders or infectious disease) (20 sources) Raised prostate specific antigen; Translations: [Elevated prostate specific antigen [PSA]] Onset: 2 Resolved: 4 Episodic Other upper respiratory disease (7 sources) Allergic rhinitis; Translations: [Allergic rhinitis, unspecified] Onset: 2 06-01-2022 Chronic Other upper respiratory disease (7 sources) Seasonal allergy; Translations: [Other seasonal allergic rhinitis] Onset: 9 06-01-2022 Chronic Other upper respiratory infections (14 sources) Chronic frontal sinusitis; Translations: [Chronic frontal sinusitis] Onset: 2 06-01-2022 Chronic Residual codes; unclassified (2 sources) History of chest pain; Translations: [Personal history of other specified diseases] Episodic Residual codes; unclassified (7 sources) Intolerance to drug; Translations: [Other drug allergy] Episodic Spondylosis; intervertebral disc disorders; other back problems (7 sources) Cervical spondylosis without myelopathy; Translations: [Spondylosis without myelopathy or radiculopathy, cervical region] Onset: 06-01-2022 Chronic Spondylosis; intervertebral disc disorders; other back problems (17 sources) Backache; Translations: [Dorsalgia, unspecified] 09-23-2017 Episodic Unclassified (6 sources) Finding of sensation of bladder 02-29-2020 Past or Other Problems Problem Classification Problem Date Documented Da te Episodic/Chronic Abdominal pain (1 source) Right lower quadrant pain; Translations: [Right lower quadrant pain] Onset: 02-20-2024 Episodic Calculus of urinary tract (20 sources) Calculus of kidney; Translations: [Kidney stone] Onset: 01-20-2016 Episodic Conditions associated with dizziness or vertigo (17 sources) Lightheadedness; Translations: [Dizziness and giddiness] Onset: 09-18-2023 Resolved: 09-30-2023 09-18-2023 Episodic Diabetes mellitus without complication (20 sources) Impaired fasting glycemia; Translations: [Impaired fasting glucose] Onset: 07-15-2015 Resolved: 08-14-2023 06-01-2022 Episodic Mood disorders (15 sources) Mood disorders Onset: 08-14-2023 Resolved: 08-18-2024 08-14-2023 Other aftercare (7 sources) Long-term current use of drug therapy; Translations: [Other detention (current) drug therapy] Onset: 01-31-2022 06-01-2022 Episodic Other circulatory disease (17 sources) Orthostatic hypotension; Translations: [Orthostatic hypotension] Onset: 09-18-2023 Resolved: 09-30-2023 09-18-2023 Episodic Other connective tissue disease (7 sources) Pain in limb; Translations: [Pain in unspecified limb] Onset: 12-13-2020 06-01-2022 Episodic Other connective tissue disease (14 sources) Trochanteric bursitis of left hip; Translations: [Trochanteric bursitis, left hip] Onset: 05-12-2024 Resolved: 08-25-2024 05-12-2024 Episodic Other injuries and conditions due to external causes (7 sources) Angioedema; Translations: [Angioneurotic edema, initial encounter] Onset: 07-15-2015 06-01-2022 Episodic Other lower respiratory disease (20 sources) Dyspnea; Translations: [Shortness of breath] Onset: 12-22-2021 06-01-2022 Episodic Other lower respiratory disease (3 sources) Shortness of breath; Translations: [Shortness of breath] Onset: 04-10-2023 Episodic Other lower respiratory disease (1 source) Shortness of breath; Translations: [Shortness of breath] Onset: 09-29-2023 Episodic Other nutritional; endocrine; and metabolic disorders (2 sources) Body mass index (BMI) 27.0-27.9, adult; Translations: [Body mass index (BMI) 27.0-27.9, adult] Onset: 03-16-2024 Episodic Other upper respiratory disease (7 sources) Nasal congestion; Translations: [Nasal congestion] Onset: 06-01-2022 06-01-2022 Episodic Residual codes; unclassified (7 sources) Abnormal sensation; Translations: [Other symptoms and signs involving general sensations and perceptions] Onset: 06-01-2022 06-01-2022 Episodic Residual codes; unclassified (7 sources) H/O: asbestos exposure; Translations: [Contact with and (suspected) exposure to asbestos] Onset: 05-07-2017 06-01-2022 Episodic Residual codes; unclassified (9 sources) Other specified health status; Translations: [MICHELLE inhibitor intolerance] Onset: 03-16-2024 Episodic Residual codes; unclassified (15 sources) Ex-tobacco user; Translations: [Other specified personal risk factors, not elsewhere classified] Onset: 08-14-2023 Resolved: 05-12-2024 08-14-2023 Episodic Screening and history of mental health and substance abuse codes (20 sources) Personal history of nicotine dependence; Translations: [Ex-smoker] Onset: 03-20-2021 Episodic Comment on above: quit 1972; Unclassified (12 sources) Patient status finding; Translations: [Patient new to provider] Results Test Name Value Interpretation Reference Range Facility Basophils Auto (Bld) [#/Vol] Ordered By: Misha Chauhan on 08-28-2024 Basophils (Bld) [#/Vol] Automated basophil count 0.0-0.2 [facility] Basophils/100 WBC Auto (Bld) Ordered By: Misha Chauhan on 08-28-2024 Basophils/100 WBC (Bld) Automated basophil % . [facility] Blood Urea Nitrogenon 2024 Urea nitrogen [Mass/Vol] 13 mg/dL Normal 7-25 [facility] Comment on above: Performed By: #### P P, CBC, BUN, CREAT, LYTES, LIPID #### [facility] [address] Carbon dioxide, total [Moles /volume] in Serum or PlasmaOrdered By: Misha Chauhan on 08-28-2024 CO2 [Moles/Vol] Carbon dioxide, tota l [Moles/volume] in Serum or Plasma High 21.0-31.0 [facility] Chloride [Moles/volume] in S claudia or PlasmaOrdered By: Misha Chauhan on 08-28-2024 Chloride [Moles/Vol] Chloride [Moles/vol ume] in Serum or Plasma 98-107 [facility] Cholesterol [Mass/volume] in Serum or PlasmaOrdered By: Misha Chauhan on 08-28-2024 Cholesterol [Mass/Vol] Cholesterol [Mass /volume] in Serum or Plasma Low 140-200 [facility] Comment on above: Chol less than 200 m g/dl low riskChol 201-239 mg/dl borderline riskChol 240 mg/dl and greater high risk Cholesterol in HDL [Mass/vol ume] in Serum or PlasmaOrdered By: Misha Chauhan on 08-28-2024 Cholesterol in HDL [Mass/Vol] Serum or plasma high density lipoprotein (HDL) cholesterol measurement 23-92 [facility] Comment on above: HDL CHOL ATP-III CLA SSIFICATION Cardiovascular RiskHDL > or equal to 60 mg/dL LOWHDL < 40 mg/dL HIGH Cholesterol in LDL Calc [Mas s/Vol]Ordered By: Misha Chauhan on 08-28-2024 Cholesterol in LDL [Mass/Vol] Cholesterol in LDL [Mass/volume] in Serum or Plasma by calculation 0-100 [facility] Comment on above: LDL ATP III CLASSIFI CATIONLDL less than 100 mg/dL OptimalLDL 100-129 mg/dL Near or above optimalLDL 130-159 mg/dL Borderline highLDL 160-189 mg/dL HighLDL greater than 189 mg/dL Very high Cholesterol in VLDL Calc [Ma ss/Vol]Ordered By: Misha Chauhan on 08-28-2024 Cholesterol in VLDL [Mass/Vol] Cholesterol in VLDL [Mass/volume] in Serum or Plasma by calculation [facility] Coagulation Profileon 2024 aPTT Coag (Bld) [Time] 35.1 s Normal 25.1-36.5 [facility] Comment on above: Result Comment: A he matocrit value greater than 55% may lead to inaccurate results in coagulation testing. Patients having hematocrit values >55% require a special collection tube for coagulation studies. Please contact the laboratory at [phone] for redraw instructions. PERFORMED BY: [place] [address] PATHOLOGIST RESOURCE DEVELOPMENT DIRECTOR TEX HAUSER M.D. Performed By: #### P P, CBC, BUN, CREAT, LYTES, LIPID #### [place] [id number] [facility] INR Coag (PPP) [Relative time] 1.0 {INR} Normal [facility] Comment on above: Result Comment: INR Therapeutic Range A) Pre- and Peroperative OAT started two weeks before surgery. NOT HIP SURGERY: 1.5 - 2.5 HIP SURGERY: 2 - 3 B) Primary and secondary prevention of venous THROMBOSIS: 2 - 3 C) Active venous thrombosis, pulmonary embolism and prevention of recurrent venous thrombosis: 2 - 3 D) Prevention of arterial thromboembolism including patients with mechanical heart valves: 3 - 4.5 Performed By: #### P P, CBC, BUN, CREAT, LYTES, LIPID #### [place] [id number] [facility] PT Coag (PPP) [Time] 11.7 s Normal 9.0-12.9 [facility] Comment on above: Result Comment: A he matocrit value greater than 55% may lead to inaccurate results in coagulation testing. Patients having hematocrit values >55% require a special collection tube for coagulation studies. Please contact the laboratory at [phone] for redraw instructions. Performed By: #### P P, CBC, BUN, CREAT, LYTES, LIPID #### [place] [id number] [facility] Complete Blood Count Auto Di ffon 08-28-2024 Basophils (Bld) [#/Vol] 0.0 10*3/uL Normal 0.0-0.2 [facility] Comment on above: Result Comment: PERF ORMED BY: [place] [address] PATHOLOGIST RESOURCE DEVELOPMENT DIRECTOR TEX HAUSER M.D. Performed By: #### P P, CBC, BUN, CREAT, LYTES, LIPID #### [address] Basophils/100 WBC (Bld) 0.6 % Normal . [facility] Comment on above: Performed By: #### P P, CBC, BUN, CREAT, LYTES, LIPID #### [address] Eosinophils (Bld) [#/Vol] 0.1 10*3/uL Normal 0.0-0.45 [facility] Comment on above: Performed By: #### P P, CBC, BUN, CREAT, LYTES, LIPID #### [address] Eosinophils/100 WBC (Bld) 1.6 % Normal . [facility] Comment on above: Performed By: #### P P, CBC, BUN, CREAT, LYTES, LIPID #### [address] Erythrocyte distribution width (RBC) [Ratio] 14.8 % Normal 12.0-14.8 [facility] Comment on above: Performed By: #### P P, CBC, BUN, CREAT, LYTES, LIPID #### [address] Hematocrit (Bld) [Volume fraction] 47.9 % Normal 38.8-50.0 [facility] Comment on above: Performed By: #### P P, CBC, BUN, CREAT, LYTES, LIPID #### [address] Hemoglobin (Bld) [Mass/Vol] 16.4 g/dL Normal 13.0-17.0 [facility] Comment on above: Performed By: #### P P, CBC, BUN, CREAT, LYTES, LIPID #### [address] Lymphocytes (Bld) [#/Vol] 1.0 10*3/uL Normal 1.00-4.8 [facility] Comment on above: Performed By: #### P P, CBC, BUN, CREAT, LYTES, LIPID #### [address] Lymphocytes/100 WBC (Bld) 18.1 % Normal . [facility] Comment on above: Performed By: #### P P, CBC, BUN, CREAT, LYTES, LIPID #### [address] MCH (RBC) [Entitic mass] 30.6 pg Normal 27.5-35.2 [facility] Comment on above: Performed By: #### P P, CBC, BUN, CREAT, LYTES, LIPID #### [address] MCV (RBC) [Entitic vol] 89.0 fL Normal 83.5-101 [facility] Comment on above: Performed By: #### P P, CBC, BUN, CREAT, LYTES, LIPID #### [address] Mean Corpuscular HGB Conc 34.4 g/dL Normal 32.5-35.6 [facility] Comment on above: Performed By: #### P P, CBC, BUN, CREAT, LYTES, LIPID #### [address] Monocytes (Bld) [#/Vol] 0.5 10*3/uL Normal 0.0-0.8 [facility] Comment on above: Performed By: #### P P, CBC, BUN, CREAT, LYTES, LIPID #### [address] Monocytes/100 WBC (Bld) 9.6 % Normal . [facility] Comment on above: Performed By: #### P P, CBC, BUN, CREAT, LYTES, LIPID #### [address] Neutrophils (Bld) [#/Vol] 3.8 10*3/uL Normal 1.8-7.7 [facility] Comment on above: Performed By: #### P P, CBC, BUN, CREAT, LYTES, LIPID #### [address] Neutrophils/100 WBC (Bld) 70.1 % Normal . [facility] Comment on above: Performed By: #### P P, CBC, BUN, CREAT, LYTES, LIPID #### [address] NRBC% 0.2 /100{WBC} Normal 0-0.5 [facility] Comment on above: Performed By: #### P P, CBC, BUN, CREAT, LYTES, LIPID #### [address] Platelet mean volume (Bld) [Entitic vol] 9.8 fL Normal 6.6-10.1 [facility] Comment on above: Performed By: #### P P, CBC, BUN, CREAT, LYTES, LIPID #### [address] Platelets (Bld) [#/Vol] 135 10*3/uL Low 150-450 [facility] Comment on above: Performed By: #### P P, CBC, BUN, CREAT, LYTES, LIPID #### [place] [address] [place] RBC (Bld) [#/Vol] 5.38 10*6/uL Normal 3.90-5.60 [facility] Comment on above: Performed By: #### P P, CBC, BUN, CREAT, LYTES, LIPID #### [address] WBC (Bld) [#/Vol] 5.4 10*3/uL Normal 4.1-10.5 [facility] Comment on above: Performed By: #### P P, CBC, BUN, CREAT, LYTES, LIPID #### [address] Creatinineon 08-28-2024 Creatinine [Mass/Vol] 0.85 mg/dL Normal 0.70-1.30 [facility] Comment on above: Performed By: #### P P, CBC, BUN, CREAT, LYTES, LIPID #### [address] GFR/1.73 sq M.predicted MDRD (S/P/Bld) [Vol rate/Area] mL/min/{1.73_m2} Normal [facility] Comment on above: Performed By: #### P P, CBC, BUN, CREAT, LYTES, LIPID #### [address] Creatinine [Mass/volume] in Serum or PlasmaOrdered By: Misha Chauhan on 08-28-2024 Creatinine [Mass/Vol] Creatinine [Mass/v olume] in Serum or Plasma 0.70-1.30 [facility] ECG 12 lead ECGon 08-28-2024 ECG 12 lead ECG [facility] [place] [address] Electrocardiograph Report Signed Patient: Jessenia Pyle MR#: [id number] 209 : 1945 Acct:[id number] Age/Sex: 79 / M ADM Date: 08/28/24 Loc: Room: Type: [facility] Attending Dr: Misha Chauhan MD Ordering Provider: Misha Chauhan MD Date of Service: 08/28/24 ECG/ECG 12 lead ECG: pre-cath Copies to: Test Reason : Blood Pressure : */* mmHG Vent. Rate : 73 BPM Atrial Rate : 73 BPM P-R Int : 150 ms QRS Dur : 80 ms QT Int : 378 ms P-R-T Axes : 17 7 73 degrees QTcB Int : 416 ms Sinus rhythm with frequent premature ventricular complexes Otherwise normal ECG When compared with ECG of 31-Jul-2024 10:56, premature ventricular complexes are now present T wave inversion no longer evident in Inferior leads Nonspecific T wave abnormality now evident in Lateral leads Confirmed by [place] HALEY [facility], JETHRO ([id number]) on 08/29/2024 12:45:48 PM Referred By: Chris Pierre Electronically Signed By: JETHRO BERNARDO MD [facility] Transcribed By: MUS Signed By Jethro Bernardo MD, FACC 08/29/24 1245 Normal [facility] Electrolyteson 08-28-2024 Anion gap [Moles/Vol] 9.5 mmol/L Normal 6.0-15.0 [facility] Comment on above: Performed By: #### P P, CBC, BUN, CREAT, LYTES, LIPID #### [facility] [address] Chloride [Moles/Vol] 105 mmol/L Normal 98-107 [facility] Comment on above: Performed By: #### P P, CBC, BUN, CREAT, LYTES, LIPID #### [facility] [address] CO2 [Moles/Vol] 31.1 mmol/L High 21.0-31.0 [facility] Comment on above: Performed By: #### P P, CBC, BUN, CREAT, LYTES, LIPID #### [facility] [address] [place] [address] [place] Potassium [Moles/Vol] 4.6 mmol/L Normal 3.5-5.1 [facility] Comment on above: Performed By: #### P P, CBC, BUN, CREAT, LYTES, LIPID #### [facility] [address] [place] [address] [place] Sodium [Moles/Vol] 141 mmol/L Normal 136-145 [facility] Comment on above: Performed By: #### P P, CBC, BUN, CREAT, LYTES, LIPID #### [facility] [address] [place] [address] [place] Eosinophils Auto (Bld) [#/Vo l]Ordered By: Misha Chauhan on 08-28-2024 Eosinophils (Bld) [#/Vol] Automated eosinophil count 0.0-0.45 [facility] Eosinophils/100 WBC Auto (Bl d)Ordered By: Misha Chauhan on 08-28-2024 Eosinophils/100 WBC (Bld) Automated eosinophil % . [facility] Erythrocyte distribution wid th Auto (RBC) [Ratio]Ordered By: Misha Chauhan on 08-28-2024 Erythrocyte distribution width (RBC) [Ratio] Erythrocyte distribution width [Ratio] by Automated count 12.0-14.8 [facility] Hematocrit Auto (Bld) [Volum e fraction]Ordered By: Misha Chauhan on 08-28-2024 Hematocrit (Bld) [Volume fraction] Hematocrit [Volume Fraction] of Blood by Automated count 38.8-50.0 [facility] Hemoglobin [Mass/volume] in BloodOrdered By: Misha Chauhan on 08-28-2024 Hemoglobin (Bld) [Mass/Vol] Hemoglobin [Mass/volume] in Blood 13.0-17.0 [facility] INR in Platelet poor plasma by Coagulation assayOrdered By: Misha Chauhan on 08-28-2024 INR Coag (PPP) [Relative time] INR in Platelet poor plasma by Coagulation assay [facility] Comment on above: INR Therapeutic Rang e A) Pre- and Peroperative OAT started two weeks before surgery. NOT HIP SURGERY: 1.5 - 2.5 HIP SURGERY: 2 - 3B) Primary and secondary prevention of venous THROMBOSIS: 2 - 3C) Active venous thrombosis, pulmonary embolismand prevention of recurrent venous thrombosis: 2 - 3D) Prevention of arterial thromboembolismincluding patients with mechanical heart valves: 3 - 4.5 Leukocytes [#/volume] correc ulisses for nucleated erythrocytes in Blood by Automated counOrdered By: Misha Chauhan on 08-28-2024 WBC corrected for nucl RBC Auto (Bld) [#/Vol] Leukocytes [#/volume] corrected for nucleated erythrocytes in Blood by Automated coun 4.1-10.5 [facility] Lipid Panelon 08-28-2024 Cholesterol [Mass/Vol] 134 mg/dL Low 140-200 [facility] Comment on above: Result Comment: Chol less than 200 mg/dl low risk Chol 201-239 mg/dl borderline risk Chol 240 mg/dl and greater high risk Performed By: #### P P, CBC, BUN, CREAT, LYTES, LIPID #### [address] Cholesterol in HDL [Mass/Vol] 52 mg/dL Normal 23-92 [facility] Comment on above: Result Comment: HDL CHOL ATP-III CLASSIFICATION Cardiovascular Risk HDL > or equal to 60 mg/dL LOW HDL < 40 mg/dL HIGH Performed By: #### P P, CBC, BUN, CREAT, LYTES, LIPID #### [address] Cholesterol.total/Chol esterol in HDL [Mass ratio] 2.6 {ratio} Normal <5.0 [facility] Comment on above: Result Comment: PERF ORMED BY: [place] [address] PATHOLOGIST RESOURCE DEVELOPMENT DIRECTOR TEX HAUSER M.D. Performed By: #### P P, CBC, BUN, CREAT, LYTES, LIPID #### [address] LDL Cholesterol,Calculated 66 mg/dL Normal 0-100 [facility] Comment on above: Result Comment: LDL ATP III CLASSIFICATION LDL less than 100 mg/dL Optimal LDL 100-129 mg/dL Near or above optimal LDL 130-159 mg/dL Borderline high LDL 160-189 mg/dL High LDL greater than 189 mg/dL Very high Performed By: #### P P, CBC, BUN, CREAT, LYTES, LIPID #### [address] Triglyceride w/Reflex 81 mg/dL Normal 0-149 [facility] Comment on above: Result Comment: TRIG ATP III CLASSIFICATION TRIG less than 150 mg/dL Normal TRIG 150-199 mg/dL Borderline high TRIG 200-500 mg/dL High TRIG greater than 500 mg/dL Very high Standard traceable to the Center for Disease Conrtrol and Prevention (CDC) test method. Performed By: #### P P, CBC, BUN, CREAT, LYTES, LIPID #### [place] [address] [place] VLDL CHOLESTEROL 16 mg/dL Normal [facility] Comment on above: Performed By: #### P P, CBC, BUN, CREAT, LYTES, LIPID #### [facility] [address] Lymphocytes Auto (Bld) [#/Vo l]Ordered By: Misha Chauhan on 08-28-2024 Lymphocytes (Bld) [#/Vol] Lymphocytes [#/volume] in Blood by Automated count 1.00-4.8 [facility] Lymphocytes/100 WBC Auto (Bl d)Ordered By: Misha Chauhan on 08-28-2024 Lymphocytes/100 WBC (Bld) Lymphocytes/100 leukocytes in Blood by Automated count . [facility] MCH Auto (RBC) [Entitic mass ]Ordered By: Misha Chauhan on 08-28-2024 MCH (RBC) [Entitic mass] MCH [Entitic mass] by Automated count 27.5-35.2 [facility] MCHC Auto (RBC) [Mass/Vol]Or dered By: Misha Chauhan on 08-28-2024 MCHC (RBC) [Mass/Vol] MCHC [Mass/volume] by Automated count 32.5-35.6 [facility] MCV Auto (RBC) [Entitic vol] Ordered By: Misha Chauhan on 08-28-2024 MCV (RBC) [Entitic vol] MCV [Entitic volume] by Automated count 83.5-101 [facility] Monocytes Auto (Bld) [#/Vol] Ordered By: Misha Chauhan on 08-28-2024 Monocytes (Bld) [#/Vol] Automated blood monocyte count 0.0-0.8 [facility] Monocytes/100 WBC Auto (Bld) Ordered By: Misha Chauhan on 08-28-2024 Monocytes/100 WBC (Bld) Automated monocyte % . [facility] Neutrophils Auto (Bld) [#/Vo l]Ordered By: Misha Chauhan on 08-28-2024 Neutrophils (Bld) [#/Vol] Neutrophils [#/volume] in Blood by Automated count 1.8-7.7 [facility] Neutrophils/100 WBC Auto (Bl d)Ordered By: Misha Chauhan on 08-28-2024 Neutrophils/100 WBC (Bld) Automated neutrophil % . [facility] No Panel InformationOrdered By: Misha Chauhan on 08-28-2024 Estimated GFR (CKD-EPI) > 60.0 mL/Min [facility] Creatinine Clearance (Chem N/A [facility] Nucleated erythrocytes [Pres ence] in Blood by Automated countOrdered By: Misha Chauhan on 08-28-2024 Nucleated RBC Auto Ql (Bld) Nucleated erythrocytes [Presence] in Blood by Automated count 0-0.5 [facility] Platelet mean volume Auto (B ld) [Entitic vol]Ordered By: Misha Chauhan on 08-28-2024 Platelet mean volume (Bld) [Entitic vol] Platelet mean volume [Entitic volume] in Blood by Automated count 6.6-10.1 [facility] Platelets Auto (Bld) [#/Vol] Ordered By: Misha Chauhan on 08-28-2024 Platelets (Bld) [#/Vol] Platelets [#/volume] in Blood by Automated count Low 150-450 [facility] Potassium [Moles/volume] in Serum or PlasmaOrdered By: Misha Chauhan on 08-28-2024 Potassium [Moles/Vol] Potassium [Moles/v olume] in Serum or Plasma 3.5-5.1 [facility] Prothrombin time (PT)Ordered By: Misha Chauhan on 08-28-2024 PT Coag (PPP) [Time] Prothrombin time (PT) 9.0- 12.9 [facility] Comment on above: A hematocrit value g reater than 55% may lead to inaccurate results in coagulation testing. Patients having hematocrit values >55% require a special collection tube for coagulation studies. Please contact the laboratory at [phone] for redraw instructions. RBC Auto (Bld) [#/Vol]Ordere d By: Misha Chauhan on 08-28-2024 RBC (Bld) [#/Vol] Erythrocytes [#/volu me] in Blood by Automated count 3.90-5.60 [facility] Serum or plasma anion gap de terminationOrdered By: Misha Chauhan on 08-28-2024 Anion gap [Moles/Vol] Serum or plasma an ion gap determination 6.0-15.0 [facility] Serum or plasma total choles terol/high density lipoprotein (HDL) cholesterol mass ratOrdered By: Misha Chauhan on 08-28-2024 Cholesterol.total/Chol esterol in HDL [Mass ratio] Serum or plasma total cholesterol/high density lipoprotein (HDL) cholesterol mass rat <5.0 [facility] Sodium [Moles/volume] in Ser um or PlasmaOrdered By: Misha Chauhan on 08-28-2024 Sodium [Moles/Vol] Sodium [Moles/volume ] in Serum or Plasma 136-145 [facility] Triglyceride [Mass/volume] i n Serum or PlasmaOrdered By: Misha Chauhan on 08-28-2024 Triglyceride [Mass/Vol] Triglyceride [Mass/volume] in Serum or Plasma 0-149 [facility] Comment on above: TRIG ATP III CLASSIF ICATIONTRIG less than 150 mg/dL NormalTRIG 150-199 mg/dL Borderline highTRIG 200-500 mg/dL High TRIG greater than 500 mg/dL Very highStandard traceable to the Center for Disease Conrtrol and Prevention (CDC) test method. Urea nitrogen [Mass/volume] in Serum or PlasmaOrdered By: Misha Chauhan on 08-28-2024 Urea nitrogen [Mass/Vol] Urea nitrogen [Mass/volume] in Serum or Plasma 7-25 [facility] WBC Auto (Bld) [#/Vol]Ordere d By: Misha Chauhan on 08-28-2024 WBC (Bld) [#/Vol] Leukocytes [#/volume ] in Blood by Automated count 4.1-10.5 [facility] aPTT in Platelet poor plasma by Coagulation assayOrdered By: Misha Chauhan on 08-28-2024 aPTT Coag (PPP) [Time] Activated partial thromboplastin time (aPTT) in platelet poor plasma by coagulation a 25.1-36.5 [facility] Comment on above: A hematocrit value g reater than 55% may lead to inaccurate results in coagulation testing. Patients having hematocrit values >55% require a special collection tube for coagulation studies. Please contact the laboratory at [phone] for redraw instructions. Hemoglobin a1c with eagon Glucose [Mass/Vol] 114 mg/dL [facility] HbA1c (Bld) [Mass fraction] 5.6 % 4.3 - 5.6 % [facility] Comment on above: Increased risk for d iabetes: 5.7 - 6.4 diabetes: >6.4 glycemic control for adults with diabetes: <7.0 [facility] A1C with Estimated Average Alek harrington 08-18-2024 Glucose [Mass/Vol] 114 mg/dL Normal [facility] Comment on above: Result Comment: PERF ORMED BY: [place] [address] PATHOLOGIST RESOURCE DEVELOPMENT DIRECTOR TEX HAUSER M.D. Performed By: #### P P, CBC, BUN, CREAT, LYTES, LIPID #### [address] HbA1c (Bld) [Mass fraction] 5.6 % Normal 4.3-5.6 [facility] Comment on above: Result Comment: Incr eased risk for diabetes: 5.7 - 6.4 diabetes: >6.4 glycemic control for adults with diabetes: <7.0 Performed By: #### P P, CBC, BUN, CREAT, LYTES, LIPID #### [facility] [address] [place] [address] Alanine aminotransferase [En zymatic activity/volume] in Serum or PlasmaOrdered By: Chris Pierre on 08-18-2024 ALT [Catalytic activity/Vol] Alanine aminotransferase [Enzymatic activity/volume] in Serum or Plasma 752 [facility] Albumin [Mass/volume] in Ser um or Plasma by Bromocresol green (BCG) dye binding methoOrdered By: Chris Pierre on 08-18-2024 Albumin BCG dye [Mass/Vol] Albumin [Mass/volume] in Serum or Plasma by Bromocresol green (BCG) dye binding metho 3.5-5.7 [facility] Alkaline phosphatase [Enzyma tic activity/volume] in Serum or PlasmaOrdered By: Chris Pierre on 08-18-2024 ALP [Catalytic activity/Vol] Alkaline phosphatase [Enzymatic activity/volume] in Serum or Plasma 34-104 [facility] Appearance of UrineOrdered B y: Chris Pierre on 08-18-2024 Appearance (U) Urine appearance Clear [facility] Aspartate aminotransferase [ Enzymatic activity/volume] in Serum or PlasmaOrdered By: Chris Pierre on 08-18-2024 AST [Catalytic activity/Vol] Aspartate aminotransferase [Enzymatic activity/volume] in Serum or Plasma 13-39 [facility] Automated epithelial cells c ount in urine sediment (number/area)Ordered By: Chris Pierre on 08-18-2024 Epithelial cells Auto (Urine sed) [#/Area] Automated epithelial cells count in urine sediment (number/area) 0-2 [facility] Automated erythrocytes count in urine sediment (number/area)Ordered By: Chris Pierre on 08-18-2024 RBC Auto (Urine sed) [#/Area] Erythrocytes [#/area] in Urine sediment by Automated count 0-4 [facility] Automated leukocytes count i n urine sediment (number/area)Ordered By: Chris Pierre on 08-18-2024 WBC Auto (Urine sed) [#/Area] Leukocytes [#/area] in Urine sediment by Automated count 0-4 [facility] Basophils Auto (Bld) [#/Vol] Ordered By: Chris Pierre on 08-18-2024 Basophils (Bld) [#/Vol] Automated basophil count 0.0-0.2 [facility] Basophils/100 WBC Auto (Bld) Ordered By: Chris Pierre on 08-18-2024 Basophils/100 WBC (Bld) Automated basophil % . [facility] Bilirubin Test strip Ql (U)O rdered By: Chris Pierre on 08-18-2024 Bilirubin Ql (U) Bilirubin.total [Pre sence] in Urine by Test strip Negative [facility] Bilirubin.total [Mass/volume ] in Serum or PlasmaOrdered By: Chris Pierre on 08-18-2024 Bilirubin [Mass/Vol] Bilirubin.total [Mass/volume] in Serum or Plasma High 0.3-1.0 [facility] Comment on above: Samples from patient s who have taken Naproxen have shown spurious elevation in Total Bilirubin levels. A metabolite of Naproxen, O-desmethylnaproxen, has been shown to interfere with the Mariam-Mindy method for measuring Total Bilirubin. Blood estimated average gluc ose determination by estimation from glycated hemoglobinOrdered By: Chris Pierre on 08-18-2024 Average glucose Estimated from glycated hemoglobin (Bld) [Mass/Vol] Glucose mean value [Mass/volume] in Blood Estimated from glycated hemoglobin [facility] Calcium [Mass/volume] in Ser um or PlasmaOrdered By: Chris Pierre on 08-18-2024 Calcium [Mass/Vol] Calcium [Mass/volume ] in Serum or Plasma 8.6-10.3 [facility] Carbon dioxide, total [Moles /volume] in Serum or PlasmaOrdered By: Chris Pierre on 08-18-2024 CO2 [Moles/Vol] Carbon dioxide, tota l [Moles/volume] in Serum or Plasma 21.0-31.0 [facility] Chloride [Moles/volume] in S claudia or PlasmaOrdered By: Chris Pierre on 08-18-2024 Chloride [Moles/Vol] Chloride [Moles/vol ume] in Serum or Plasma 98-107 [facility] Cholesterol [Mass/volume] in Serum or PlasmaOrdered By: Chris Pierre on 08-18-2024 Cholesterol [Mass/Vol] Cholesterol [Mass /volume] in Serum or Plasma 140-200 [facility] Comment on above: Chol less than 200 m g/dl low riskChol 201-239 mg/dl borderline riskChol 240 mg/dl and greater high risk Cholesterol in HDL [Mass/vol ume] in Serum or PlasmaOrdered By: Chris Pierre on 08-18-2024 Cholesterol in HDL [Mass/Vol] Serum or plasma high density lipoprotein (HDL) cholesterol measurement 23-92 [facility] Comment on above: HDL CHOL ATP-III CLA SSIFICATION Cardiovascular RiskHDL > or equal to 60 mg/dL LOWHDL < 40 mg/dL HIGH Cholesterol in LDL Calc [Mas s/Vol]Ordered By: Chris Pierre on 08-18-2024 Cholesterol in LDL [Mass/Vol] Cholesterol in LDL [Mass/volume] in Serum or Plasma by calculation 0-100 [facility] Comment on above: LDL ATP III CLASSIFI CATIONLDL less than 100 mg/dL OptimalLDL 100-129 mg/dL Near or above optimalLDL 130-159 mg/dL Borderline highLDL 160-189 mg/dL HighLDL greater than 189 mg/dL Very high Cholesterol in VLDL Calc [Ma ss/Vol]Ordered By: Chris Pierre on 08-18-2024 Cholesterol in VLDL [Mass/Vol] Cholesterol in VLDL [Mass/volume] in Serum or Plasma by calculation [facility] Color Auto (U)Ordered By: Elio Pierre on 08-18-2024 Color (U) Color of Urine by Auto Yellow Fi [facility] Comprehensive Metabolic Pane gabe 08-18-2024 Albumin [Mass/Vol] 4.3 g/dL Normal 3.5-5.7 [facility] Comment on above: Performed By: #### P P, CBC, BUN, CREAT, LYTES, LIPID #### [address] Albumin/Globulin [Mass ratio] 2.0 {ratio} Normal [facility] Comment on above: Performed By: #### P P, CBC, BUN, CREAT, LYTES, LIPID #### [place] [id number] [place] ALP [Catalytic activity/Vol] 70 U/L Normal 34-104 [facility] Comment on above: Performed By: #### P P, CBC, BUN, CREAT, LYTES, LIPID #### [place] [id number] [place] ALT [Catalytic activity/Vol] 38 U/L Normal 7-52 [facility] Comment on above: Performed By: #### P P, CBC, BUN, CREAT, LYTES, LIPID #### [place] [id number] [place] Anion gap [Moles/Vol] 8.5 mmol/L Normal 6.0-15.0 [facility] Comment on above: Performed By: #### P P, CBC, BUN, CREAT, LYTES, LIPID #### [facility] [address] [place] [id number] [place] AST [Catalytic activity/Vol] 30 U/L Normal 13-39 [facility] Comment on above: Performed By: #### P P, CBC, BUN, CREAT, LYTES, LIPID #### [address] Bilirubin [Mass/Vol] 1.3 mg/dL High 0.3-1.0 [facility] Comment on above: Result Comment: Samp les from patients who have taken Naproxen have shown spurious elevation in Total Bilirubin levels. A metabolite of Naproxen, O-desmethylnaproxen, has been shown to interfere with the Jendrassik-Grof method for measuring Total Bilirubin. Performed By: #### P P, CBC, BUN, CREAT, LYTES, LIPID #### [address] Calcium [Mass/Vol] 9.5 mg/dL Normal 8.6-10.3 [facility] Comment on above: Performed By: #### P P, CBC, BUN, CREAT, LYTES, LIPID #### [address] Chloride [Moles/Vol] 106 mmol/L Normal 98-107 [facility] Comment on above: Performed By: #### P P, CBC, BUN, CREAT, LYTES, LIPID #### [address] CO2 [Moles/Vol] 30.3 mmol/L Normal 21.0-31.0 [facility] Comment on above: Performed By: #### P P, CBC, BUN, CREAT, LYTES, LIPID #### [address] Creatinine [Mass/Vol] 0.92 mg/dL Normal 0.70-1.30 [facility] Comment on above: Performed By: #### P P, CBC, BUN, CREAT, LYTES, LIPID #### [address] GFR/1.73 sq M.predicted MDRD (S/P/Bld) [Vol rate/Area] mL/min/{1.73_m2} Normal [facility] Comment on above: Performed By: #### P P, CBC, BUN, CREAT, LYTES, LIPID #### [facility] [address] [place] [address] [place] Globulin (S) [Mass/Vol] 2.2 g/dL Normal [facility] Comment on above: Performed By: #### P P, CBC, BUN, CREAT, LYTES, LIPID #### [facility] [address] Glucose [Mass/Vol] 113 mg/dL High 70-100 [facility] Comment on above: Result Comment: [facility] Glucose Reference Range is dependent on time and content of last meal. Glucose of more than 200 mg/dL in a nonstressed, ambulatory subject supports the diagnosis of Diabetes Mellitus. ADA recommended reference range Performed By: #### P P, CBC, BUN, CREAT, LYTES, LIPID #### [facility] [address] Potassium [Moles/Vol] 4.8 mmol/L Normal 3.5-5.1 [facility] Comment on above: Performed By: #### P P, CBC, BUN, CREAT, LYTES, LIPID #### [facility] [address] [place] [address] [place] Protein [Mass/Vol] 6.5 g/dL Normal 6.4-8.9 [facility] Comment on above: Performed By: #### P P, CBC, BUN, CREAT, LYTES, LIPID #### [facility] [address] [place] [address] [place] Sodium [Moles/Vol] 140 mmol/L Normal 136-145 [facility] Comment on above: Performed By: #### P P, CBC, BUN, CREAT, LYTES, LIPID #### [facility] [address] [place] [address] [place] Urea nitrogen [Mass/Vol] 15 mg/dL Normal 7-25 [facility] Comment on above: Performed By: #### P P, CBC, BUN, CREAT, LYTES, LIPID #### [facility] [address] [place] [address] [place] Creatinine [Mass/volume] in Serum or PlasmaOrdered By: Chris Pierre on 08-18-2024 Creatinine [Mass/Vol] Creatinine [Mass/v olume] in Serum or Plasma 0.70-1.30 [facility] Dipstick and Microscopicon 0 08-18-2024 Appearance (U) Clear Normal Clear [facility] Comment on above: Order Comment: Name Collection Type:: Clean-Voided Midstream Performed By: #### P P, CBC, BUN, CREAT, LYTES, LIPID #### [address] Bacteria,Urine None Seen Normal None Seen [facility] Comment on above: Order Comment: Name Collection Type:: Clean-Voided Midstream Performed By: #### P P, CBC, BUN, CREAT, LYTES, LIPID #### [address] Bilirubin,Urine Negative Normal Negative [facility] Comment on above: Order Comment: Name Collection Type:: Clean-Voided Midstream Performed By: #### P P, CBC, BUN, CREAT, LYTES, LIPID #### [address] Color (U) Yellow Normal Yellow [facility] Comment on above: Order Comment: Name Collection Type:: Clean-Voided Midstream Performed By: #### P P, CBC, BUN, CREAT, LYTES, LIPID #### [address] Glucose Ql (U) Normal Normal Normal [facility] Comment on above: Order Comment: Name Collection Type:: Clean-Voided Midstream Performed By: #### P P, CBC, BUN, CREAT, LYTES, LIPID #### [address] Hyaline Casts,Urine None Seen Normal 0-8 [facility] Comment on above: Order Comment: Name Collection Type:: Clean-Voided Midstream Result Comment: PERF ORMED BY: [place] [address] PATHOLOGIST RESOURCE DEVELOPMENT DIRECTOR TEX HAUSER M.D. Performed By: #### P P, CBC, BUN, CREAT, LYTES, LIPID #### [address] Ketones Ql (U) Negative Normal Negative [facility] Comment on above: Order Comment: Name Collection Type:: Clean-Voided Midstream Performed By: #### P P, CBC, BUN, CREAT, LYTES, LIPID #### [address] Leukocyte esterase Test strip Ql (U) Negative Normal Negative [facility] Comment on above: Order Comment: Name Collection Type:: Clean-Voided Midstream Performed By: #### P P, CBC, BUN, CREAT, LYTES, LIPID #### [address] Nitrite,Urine Negative Normal Negative [facility] Comment on above: Order Comment: Name Collection Type:: Clean-Voided Midstream Performed By: #### P P, CBC, BUN, CREAT, LYTES, LIPID #### [address] Occult Blood,Urine Negative Normal Negative [facility] Comment on above: Order Comment: Name Collection Type:: Clean-Voided Midstream Performed By: #### P P, CBC, BUN, CREAT, LYTES, LIPID #### [address] pH (U) 6.0 [pH] Normal 5.0-9.0 [facility] Comment on above: Order Comment: Name Collection Type:: Clean-Voided Midstream Performed By: #### P P, CBC, BUN, CREAT, LYTES, LIPID #### [address] Protein,Urine Negative Normal Negative [facility] Comment on above: Order Comment: Name Collection Type:: Clean-Voided Midstream Performed By: #### P P, CBC, BUN, CREAT, LYTES, LIPID #### [address] RBC,Urine None Seen Normal 0-4 [facility] Comment on above: Order Comment: Name Collection Type:: Clean-Voided Midstream Performed By: #### P P, CBC, BUN, CREAT, LYTES, LIPID #### [address] Specificy Slade,Urine 1.021 Normal 1.001-1.03 0 [facility] Comment on above: Order Comment: Name Collection Type:: Clean-Voided Midstream Performed By: #### P P, CBC, BUN, CREAT, LYTES, LIPID #### [address] Squamous Epithelial Cell,Urine 0 [HPF] Normal 0-2 [facility] Comment on above: Order Comment: Name Collection Type:: Clean-Voided Midstream Performed By: #### P P, CBC, BUN, CREAT, LYTES, LIPID #### [address] Urobilinogen,Urine Normal Normal Normal [facility] Comment on above: Order Comment: Name Collection Type:: Clean-Voided Midstream Performed By: #### P P, CBC, BUN, CREAT, LYTES, LIPID #### [address] WBC,Urine 0 [HPF] Normal 0-4 [facility] Comment on above: Order Comment: Name Collection Type:: Clean-Voided Midstream Performed By: #### P P, CBC, BUN, CREAT, LYTES, LIPID #### [place] [address] [place] Eosinophils Auto (Bld) [#/Vo l]Ordered By: Chris Pierre on 08-18-2024 Eosinophils (Bld) [#/Vol] Automated eosinophil count 0.0-0.45 [facility] Eosinophils/100 WBC Auto (Bl d)Ordered By: Chris Pierre on 08-18-2024 Eosinophils/100 WBC (Bld) Automated eosinophil % . [facility] Erythrocyte distribution wid th Auto (RBC) [Ratio]Ordered By: Chris Pierre on 08-18-2024 Erythrocyte distribution width (RBC) [Ratio] Erythrocyte distribution width [Ratio] by Automated count 12.0-14.8 [facility] Erythrocyte morphology findi ng [Identifier] in BloodOrdered By: Chris Pierre on 08-18-2024 RBC morphology finding Nom (Bld) RBC morphology Normal [facility] Free T4 (Free Thyroxine)on 0 08-18-2024 Free T4 [Mass/Vol] 1.01 ng/dL Normal 0.61-1.12 [facility] Comment on above: Performed By: #### P P, CBC, BUN, CREAT, LYTES, LIPID #### [facility] [address] [place] [address] Globulin Calc (S) [Mass/Vol] Ordered By: Chris Pierre on 08-18-2024 Globulin (S) [Mass/Vol] Serum globulin measurement by calculation (mass/volume) [facility] Glucose [Mass/volume] in Ser um or PlasmaOrdered By: Chris Pierre on 08-18-2024 Glucose [Mass/Vol] Glucose [Mass/volume ] in Serum or Plasma High 70-100 [facility] Comment on above: ADA recommended refe rence rangeRandom Glucose Reference Range is dependent on time and content of last meal. Glucose of more than 200 mg/dL in a nonstressed, ambulatory subject supports the diagnosis of Diabetes Mellitus. Glucose [Mass/volume] in Uri ne by Test stripOrdered By: Chris Pierre on 08-18-2024 Glucose Test strip (U) [Mass/Vol] Glucose [Mass/volume] in Urine by Test strip Normal [facility] Hematocrit Auto (Bld) [Volum e fraction]Ordered By: Chris Pierre on 08-18-2024 Hematocrit (Bld) [Volume fraction] Hematocrit [Volume Fraction] of Blood by Automated count 38.8-50.0 [facility] Hemoglobin A1c/Hemoglobin.to hilton in BloodOrdered By: Chris Pierre on 08-18-2024 HbA1c (Bld) [Mass fraction] Hemoglobin A1c percentage 4.3-5.6 [facility] Comment on above: Increased risk for d iabetes: 5.7 - 6.4diabetes: >6.4glycemic control for adults with diabetes: <7.0 Hemoglobin Test strip Ql (U) Ordered By: Chris Pierre on 08-18-2024 Hemoglobin Ql (U) Hemoglobin [Presence ] in Urine by Test strip Negative [facility] Hemoglobin [Mass/volume] in BloodOrdered By: Chris Pierre on 08-18-2024 Hemoglobin (Bld) [Mass/Vol] Hemoglobin [Mass/volume] in Blood 13.0-17.0 [facility] Ketones Test strip Ql (U)Ord ered By: Chris Pierre on 08-18-2024 Ketones Ql (U) Ketones [Presence] i n Urine by Test strip Negative [facility] Laboratory - UrinalysisOrder ed By: Chris Pierre on 08-18-2024 Hyaline casts LM Ql (Urine sed) None seen [LPF] 0-8 [facility] Leukocyte esterase [Presence ] in Urine by Test stripOrdered By: Chris Pierre on 08-18-2024 Leukocyte esterase Test strip Ql (U) Leukocyte esterase [Presence] in Urine by Test strip Negative [facility] Leukocytes [#/volume] correc ulisses for nucleated erythrocytes in Blood by Automated counOrdered By: Chris Pierre on 08-18-2024 WBC corrected for nucl RBC Auto (Bld) [#/Vol] Leukocytes [#/volume] corrected for nucleated erythrocytes in Blood by Automated coun 4.1-10.5 [facility] Lipid Panelon 08-18-2024 Cholesterol [Mass/Vol] 151 mg/dL Normal 140-200 [facility] Comment on above: Result Comment: Chol less than 200 mg/dl low risk Chol 201-239 mg/dl borderline risk Chol 240 mg/dl and greater high risk Performed By: #### P P, CBC, BUN, CREAT, LYTES, LIPID #### [facility] [address] [place] [address] [place] Cholesterol in HDL [Mass/Vol] 52 mg/dL Normal 23-92 [facility] Comment on above: Result Comment: HDL CHOL ATP-III CLASSIFICATION Cardiovascular Risk HDL > or equal to 60 mg/dL LOW HDL < 40 mg/dL HIGH Performed By: #### P P, CBC, BUN, CREAT, LYTES, LIPID #### [facility] [address] [place] [id number] [place] Cholesterol.total/Chol esterol in HDL [Mass ratio] 2.9 {ratio} Normal <5.0 [facility] Comment on above: Performed By: #### P P, CBC, BUN, CREAT, LYTES, LIPID #### [facility] [address] LDL Cholesterol,Calculated 77 mg/dL Normal 0-100 [facility] Comment on above: Result Comment: LDL ATP III CLASSIFICATION LDL less than 100 mg/dL Optimal LDL 100-129 mg/dL Near or above optimal LDL 130-159 mg/dL Borderline high LDL 160-189 mg/dL High LDL greater than 189 mg/dL Very high Performed By: #### P P, CBC, BUN, CREAT, LYTES, LIPID #### [facility] [address] Triglyceride w/Reflex 112 mg/dL Normal 0-149 [facility] Comment on above: Result Comment: TRIG ATP III CLASSIFICATION TRIG less than 150 mg/dL Normal TRIG 150-199 mg/dL Borderline high TRIG 200-500 mg/dL High TRIG greater than 500 mg/dL Very high Standard traceable to the Center for Disease Conrtrol and Prevention (CDC) test method. Performed By: #### P P, CBC, BUN, CREAT, LYTES, LIPID #### [facility] [address] VLDL CHOLESTEROL 22 mg/dL Normal [facility] Comment on above: Performed By: #### P P, CBC, BUN, CREAT, LYTES, LIPID #### [facility] [address] Lymphocytes Auto (Bld) [#/Vo l]Ordered By: Chris Pierre on 08-18-2024 Lymphocytes (Bld) [#/Vol] Lymphocytes [#/volume] in Blood by Automated count 1.00-4.8 [facility] Lymphocytes/100 WBC Auto (Bl d)Ordered By: Chris Pierre on 08-18-2024 Lymphocytes/100 WBC (Bld) Lymphocytes/100 leukocytes in Blood by Automated count . [facility] MCH Auto (RBC) [Entitic mass ]Ordered By: Chris Pierre on 08-18-2024 MCH (RBC) [Entitic mass] MCH [Entitic mass] by Automated count 27.5-35.2 [facility] MCHC Auto (RBC) [Mass/Vol]Or dered By: Chris Pierre on 08-18-2024 MCHC (RBC) [Mass/Vol] MCHC [Mass/volume] by Automated count 32.5-35.6 [facility] MCV Auto (RBC) [Entitic vol] Ordered By: Chris Pierre on 08-18-2024 MCV (RBC) [Entitic vol] MCV [Entitic volume] by Automated count 83.5-101 [facility] Monocytes Auto (Bld) [#/Vol] Ordered By: Chris Pierre on 08-18-2024 Monocytes (Bld) [#/Vol] Automated blood monocyte count 0.0-0.8 [facility] Monocytes/100 WBC Auto (Bld) Ordered By: Chris Pierre on 08-18-2024 Monocytes/100 WBC (Bld) Automated monocyte % . [facility] Neutrophils Auto (Bld) [#/Vo l]Ordered By: Chris Pierre on 08-18-2024 Neutrophils (Bld) [#/Vol] Neutrophils [#/volume] in Blood by Automated count 1.8-7.7 [facility] Neutrophils/100 WBC Auto (Bl d)Ordered By: Chris Pierre on 08-18-2024 Neutrophils/100 WBC (Bld) Automated neutrophil % . [facility] Nitrite Test strip Ql (U)Ord ered By: Chris Pierre on 08-18-2024 Nitrite Ql (U) Nitrite [Presence] i n Urine by Test strip Negative [facility] No Panel InformationOrdered By: Chris Pierre on 08-18-2024 Estimated GFR (CKD-EPI) > 60.0 mL/Min [facility] Creatinine Clearance (Chem N/A [facility] Nucleated erythrocytes [Pres ence] in Blood by Automated countOrdered By: Chris Pierre on 08-18-2024 Nucleated RBC Auto Ql (Bld) Nucleated erythrocytes [Presence] in Blood by Automated count High 0-0.5 [facility] Platelet adequacy [Presence] in Blood by Light microscopyOrdered By: Chris Pierre on 08-18-2024 Platelets LM Ql (Bld) Platelet adequacy [Presence] in Blood by Light microscopy Normal [facility] Platelet mean volume Auto (B ld) [Entitic vol]Ordered By: Chris Pierre on 08-18-2024 Platelet mean volume (Bld) [Entitic vol] Platelet mean volume [Entitic volume] in Blood by Automated count 6.6-10.1 [facility] Platelet morphology finding [Identifier] in BloodOrdered By: Chris Pierre on 08-18-2024 Platelet morphology finding Nom (Bld) Platelet morphology finding [Identifier] in Blood Normal [facility] Platelets Auto (Bld) [#/Vol] Ordered By: Chris Pierre on 08-18-2024 Platelets (Bld) [#/Vol] Platelets [#/volume] in Blood by Automated count Low 150-450 [facility] Potassium [Moles/volume] in Serum or PlasmaOrdered By: Chris Pierre on 08-18-2024 Potassium [Moles/Vol] Potassium [Moles/v olume] in Serum or Plasma 3.5-5.1 [facility] Protein Test strip (U) [Mass /Vol]Ordered By: Chris Pierre on 08-18-2024 Protein (U) [Mass/Vol] Protein [Mass/vol ume] in Urine by Test strip Negative [facility] Protein [Mass/volume] in Ser um or PlasmaOrdered By: Chris Pierre on 08-18-2024 Protein [Mass/Vol] Protein [Mass/volume ] in Serum or Plasma 6.4-8.9 [facility] RBC Auto (Bld) [#/Vol]Ordere d By: Chris Pierre on 08-18-2024 RBC (Bld) [#/Vol] Erythrocytes [#/volu me] in Blood by Automated count 3.90-5.60 [facility] SCAN AND CBCon 08-18-2024 Basophils (Bld) [#/Vol] 0 10*3/uL 0.0 - 0.2 10*3/uL [facility] Basophils/100 WBC Manual cnt (Syn fld) 0.4 % . [facility] Eosinophils (Bld) [#/Vol] 0.1 10*3/uL 0.0 - 0.45 10*3/uL [facility] Eosinophils/100 WBC Manual cnt (Syn fld) 1.3 % . [facility] Erythrocyte distribution width (RBC) [Ratio] 14.7 % 12.0 - 14.8 % [facility] Hematocrit (Bld) [Volume fraction] 48.7 % 38.8 - 50.0 % [facility] Hemoglobin (Bld) [Mass/Vol] 16.7 g/dL 13.0 - 17.0 g/dL [facility] Interpretation and review of laboratory results Abnormal [facility] Lymphocytes (Bld) [#/Vol] 1.3 10*3/uL 1.00 - 4.8 10*3/uL [facility] Lymphocytes/100 WBC Manual cnt (Syn fld) 17.7 % . [facility] MCH (RBC) [Entitic mass] 30.6 pg 27.5 - 35.2 pg [facility] MCHC (RBC) [Mass/Vol] 34.3 g/dL 32.5 - 35.6 g/dL [facility] MCV (RBC) [Entitic vol] 89.2 fL 83.5 - 101 fL [facility] Monocytes (Bld) [#/Vol] 0.6 10*3/uL 0.0 - 0.8 10*3/uL [facility] Monocytes+Macrophages/ 100 WBC Manual cnt (Syn fld) 8.1 % . [facility] Neutrophils (Bld) [#/Vol] 5.2 10*3/uL 1.8 - 7.7 10*3/uL [facility] Neutrophils/100 WBC Manual cnt (Syn fld) 72.5 % . [facility] NRBC 0.6 /100{WBC} High 0 - 0.5 /100{WBC} [facility] PLATELET ESTIMATE Decreased Normal [facility] Platelet mean volume (Bld) [Entitic vol] 9.9 fL 6.6 - 10.1 fL [facility] PLATELET MORPHOLOGY Normal Normal [facility] Platelets (Bld) [#/Vol] 146 10*3/uL Low 150 - 450 10*3/uL [facility] RBC LM.HPF (Urine sed) [#/Area] 5.46 10*6/uL 3.90 - 5.60 10*6/uL [facility] RBC morphology finding Nom (Bld) Normal Normal [facility] WBC (Bld) [#/Vol] 7.2 10*3/uL 4.1 - 10.5 10*3/uL [facility] WBC LM.HPF (Urine sed) [#/Area] 7.2 10*3/uL 4.1 - 10.5 10*3/uL [facility] CBCon 08-18-2024 Basophils (Bld) [#/Vol] 0.0 10*3/uL Normal 0.0-0.2 [facility] Comment on above: Performed By: #### P P, CBC, BUN, CREAT, LYTES, LIPID #### [address] Basophils/100 WBC (Bld) 0.4 % Normal . [facility] Comment on above: Performed By: #### P P, CBC, BUN, CREAT, LYTES, LIPID #### [address] Eosinophils (Bld) [#/Vol] 0.1 10*3/uL Normal 0.0-0.45 [facility] Comment on above: Performed By: #### P P, CBC, BUN, CREAT, LYTES, LIPID #### [address] Eosinophils/100 WBC (Bld) 1.3 % Normal . [facility] Comment on above: Performed By: #### P P, CBC, BUN, CREAT, LYTES, LIPID #### [address] Erythrocyte distribution width (RBC) [Ratio] 14.7 % Normal 12.0-14.8 [facility] Comment on above: Performed By: #### P P, CBC, BUN, CREAT, LYTES, LIPID #### [address] Hematocrit (Bld) [Volume fraction] 48.7 % Normal 38.8-50.0 [facility] Comment on above: Performed By: #### P P, CBC, BUN, CREAT, LYTES, LIPID #### [address] Hemoglobin (Bld) [Mass/Vol] 16.7 g/dL Normal 13.0-17.0 [facility] Comment on above: Performed By: #### P P, CBC, BUN, CREAT, LYTES, LIPID #### [address] Lymphocytes (Bld) [#/Vol] 1.3 10*3/uL Normal 1.00-4.8 [facility] Comment on above: Performed By: #### P P, CBC, BUN, CREAT, LYTES, LIPID #### [address] Lymphocytes/100 WBC (Bld) 17.7 % Normal . [facility] Comment on above: Performed By: #### P P, CBC, BUN, CREAT, LYTES, LIPID #### [address] MCH (RBC) [Entitic mass] 30.6 pg Normal 27.5-35.2 [facility] Comment on above: Performed By: #### P P, CBC, BUN, CREAT, LYTES, LIPID #### [address] MCV (RBC) [Entitic vol] 89.2 fL Normal 83.5-101 [facility] Comment on above: Performed By: #### P P, CBC, BUN, CREAT, LYTES, LIPID #### [address] Mean Corpuscular HGB Conc 34.3 g/dL Normal 32.5-35.6 [facility] Comment on above: Performed By: #### P P, CBC, BUN, CREAT, LYTES, LIPID #### [address] Monocytes (Bld) [#/Vol] 0.6 10*3/uL Normal 0.0-0.8 [facility] Comment on above: Performed By: #### P P, CBC, BUN, CREAT, LYTES, LIPID #### [address] Monocytes/100 WBC (Bld) 8.1 % Normal . [facility] Comment on above: Performed By: #### P P, CBC, BUN, CREAT, LYTES, LIPID #### [address] Neutrophils (Bld) [#/Vol] 5.2 10*3/uL Normal 1.8-7.7 [facility] Comment on above: Performed By: #### P P, CBC, BUN, CREAT, LYTES, LIPID #### [address] Neutrophils/100 WBC (Bld) 72.5 % Normal . [facility] Comment on above: Performed By: #### P P, CBC, BUN, CREAT, LYTES, LIPID #### [address] NRBC% 0.6 /100{WBC} High 0-0.5 [facility] Comment on above: Performed By: #### P P, CBC, BUN, CREAT, LYTES, LIPID #### [address] Platelet Estimate Decreased Normal Normal [facility] Comment on above: Performed By: #### P P, CBC, BUN, CREAT, LYTES, LIPID #### [address] Platelet mean volume (Bld) [Entitic vol] 9.9 fL Normal 6.6-10.1 [facility] Comment on above: Performed By: #### P P, CBC, BUN, CREAT, LYTES, LIPID #### [address] Platelet Morphology Normal Normal Normal [facility] Comment on above: Result Comment: PERF ORMED BY: [place] [address] PATHOLOGIST RESOURCE DEVELOPMENT DIRECTOR TEX HAUSER M.D. Performed By: #### P P, CBC, BUN, CREAT, LYTES, LIPID #### [facility] [address] Platelets (Bld) [#/Vol] 146 10*3/uL Low 150-450 [facility] Comment on above: Performed By: #### P P, CBC, BUN, CREAT, LYTES, LIPID #### [facility] [address] RBC (Bld) [#/Vol] 5.46 10*6/uL Normal 3.90-5.60 [facility] Comment on above: Performed By: #### P P, CBC, BUN, CREAT, LYTES, LIPID #### [facility] [address] RBC morphology finding Nom (Bld) Normal Normal Normal [facility] Comment on above: Performed By: #### P P, CBC, BUN, CREAT, LYTES, LIPID #### [facility] [address] WBC (Bld) [#/Vol] 7.2 10*3/uL Normal 4.1-10.5 [facility] [facility] Comment on above: Performed By: #### P P, CBC, BUN, CREAT, LYTES, LIPID #### [address] Serum or plasma albumin/glob ulin mass ratioOrdered By: Chris Pierre on 08-18-2024 Albumin/Globulin [Mass ratio] Serum or plasma albumin/globulin mass ratio [facility] Serum or plasma anion gap de terminationOrdered By: Chris Pierre on 08-18-2024 Anion gap [Moles/Vol] Serum or plasma an ion gap determination 6.0-15.0 [facility] Serum or plasma total choles terol/high density lipoprotein (HDL) cholesterol mass ratOrdered By: Chris Pierre on 08-18-2024 Cholesterol.total/Chol esterol in HDL [Mass ratio] Serum or plasma total cholesterol/high density lipoprotein (HDL) cholesterol mass rat <5.0 [facility] Sodium [Moles/volume] in Ser um or PlasmaOrdered By: Chris Pierre on 08-18-2024 Sodium [Moles/Vol] Sodium [Moles/volume ] in Serum or Plasma 136-145 [facility] Specific gravity Test strip (U) [Rel density]Ordered By: Chris Pierre on 08-18-2024 Specific gravity (U) [Rel density] Specific gravity of Urine by Test strip 1.001-1.03 0 [facility] Thyroid Stimulating Hormoneo n 08-18-2024 TSH Qn 0.72 m[IU]/L Normal 0.45-5.33 [facility] Comment on above: Result Comment: PERF ORMED BY: [facility] [address] [facility] [place] [address] PATHOLOGIST RESOURCE DEVELOPMENT DIRECTOR TEX HAUSER M.D. Performed By: #### P P, CBC, BUN, CREAT, LYTES, LIPID #### [address] Thyrotropin [Units/volume] i n Serum or PlasmaOrdered By: Chris Pierre on 08-18-2024 TSH Qn Thyrotropin [Units/v olume] in Serum or Plasma 0.45-5.33 [facility] Thyroxine (T4) free [Mass/vo lume] in Serum or PlasmaOrdered By: Chris Pierre on 08-18-2024 Free T4 [Mass/Vol] Thyroxine (T4) free [Mass/volume] in Serum or Plasma 0.61-1.12 [facility] Triglyceride [Mass/volume] i n Serum or PlasmaOrdered By: Chris Pierre on 08-18-2024 Triglyceride [Mass/Vol] Triglyceride [Mass/volume] in Serum or Plasma 0-149 [facility] Comment on above: TRIG ATP III CLASSIF ICATIONTRIG less than 150 mg/dL NormalTRIG 150-199 mg/dL Borderline highTRIG 200-500 mg/dL High TRIG greater than 500 mg/dL Very highStandard traceable to the Center for Disease Conrtrol and Prevention (CDC) test method. Urea nitrogen [Mass/volume] in Serum or PlasmaOrdered By: Chris Pierre on 08-18-2024 Urea nitrogen [Mass/Vol] Urea nitrogen [Mass/volume] in Serum or Plasma 7-25 [facility] Urine bacteria detection by automated methodOrdered By: Chris Pierre on 08-18-2024 Bacteria Auto Ql (U) Bacteria [Presence] in Urine by Automated None Seen [facility] Urobilinogen Test strip (U) [Mass/Vol]Ordered By: Chris Pierre on 08-18-2024 Urobilinogen (U) [Mass/Vol] Urobilinogen [Mass/volume] in Urine by Test strip Normal [facility] WBC Auto (Bld) [#/Vol]Ordere d By: Chris Pierre on 08-18-2024 WBC (Bld) [#/Vol] Leukocytes [#/volume ] in Blood by Automated count 4.1-10.5 [facility] pH Test strip (U)Ordered By: Chris Pierre on 08-18-2024 pH (U) pH of Urine by Test strip 5.0-9.0 [facility] FPG ECG *CARDIOLOGY ONLY*on 07-31-2024 FPG ECG *CARDIOLOGY ONLY* [facility] [place] [address] Electrocardiograph Report Signed Patient: Jessenia Pyle MR#: [id number] : 1945 Acct:[id number] Age/Sex: 79 / M ADM Date: 07/31/24 Loc: [facility] Room: Type: [facility] Attending Dr: Misha Chauhan MD Ordering Provider: Misha Chauhan MD Date of Service: 07/31/24 ECG/FPG ECG *CARDIOLOGY ONLY*: E78.5 - Hyperlipidemia, unspecified Copies to: Test Reason : Blood Pressure : */* mmHG Vent. Rate : 94 BPM Atrial Rate : 94 BPM P-R Int : 140 ms QRS Dur : 76 ms QT Int : 332 ms P-R-T Axes : 27 30 5 degrees QTcB Int : 415 ms Normal sinus rhythm Normal ECG When compared with ECG of 29-Sep-2023 01:12, T wave inversion now evident in Inferior leads Confirmed by Misha Chauhan ([id number]) on 08/08/2024 12:21:33 PM Referred By: Electronically Signed By: Misha Chauhan Transcribed By: MUS Signed By Misha Chauhan MD 08/08/24 1221 Normal [facility] Basophils Auto (Bld) [#/Vol] Ordered By: Jamison Lauren on 07-16-2024 Basophils (Bld) [#/Vol] Automated basophil count 0.0-0.2 [facility] Basophils/100 WBC Auto (Bld) Ordered By: Jamison Lauren on 07-16-2024 Basophils/100 WBC (Bld) Automated basophil % . [facility] Complete Blood Count Auto Di ffon 07-16-2024 Basophils (Bld) [#/Vol] 0.0 10*3/uL Normal 0.0-0.2 [facility] Comment on above: Result Comment: PERF ORMED BY: [place] [address] PATHOLOGIST RESOURCE DEVELOPMENT DIRECTOR TEX HAUSER M.D. Performed By: #### P P, CBC, BUN, CREAT, LYTES, LIPID #### [address] Basophils/100 WBC (Bld) 0.6 % Normal . [facility] Comment on above: Performed By: #### P P, CBC, BUN, CREAT, LYTES, LIPID #### [address] Eosinophils (Bld) [#/Vol] 0.0 10*3/uL Normal 0.0-0.45 [facility] Comment on above: Performed By: #### P P, CBC, BUN, CREAT, LYTES, LIPID #### [address] Eosinophils/100 WBC (Bld) 0.7 % Normal . [facility] Comment on above: Performed By: #### P P, CBC, BUN, CREAT, LYTES, LIPID #### [address] Erythrocyte distribution width (RBC) [Ratio] 14.2 % Normal 12.0-14.8 [facility] Comment on above: Performed By: #### P P, CBC, BUN, CREAT, LYTES, LIPID #### [address] Hematocrit (Bld) [Volume fraction] 47.0 % Normal 38.8-50.0 [facility] Comment on above: Performed By: #### P P, CBC, BUN, CREAT, LYTES, LIPID #### [address] Hemoglobin (Bld) [Mass/Vol] 16.2 g/dL Normal 13.0-17.0 [facility] Comment on above: Performed By: #### P P, CBC, BUN, CREAT, LYTES, LIPID #### [address] Lymphocytes (Bld) [#/Vol] 1.0 10*3/uL Normal 1.00-4.8 [facility] Comment on above: Performed By: #### P P, CBC, BUN, CREAT, LYTES, LIPID #### [address] Lymphocytes/100 WBC (Bld) 17.3 % Normal . [facility] Comment on above: Performed By: #### P P, CBC, BUN, CREAT, LYTES, LIPID #### [address] MCH (RBC) [Entitic mass] 30.4 pg Normal 27.5-35.2 [facility] Comment on above: Performed By: #### P P, CBC, BUN, CREAT, LYTES, LIPID #### [address] MCV (RBC) [Entitic vol] 88.0 fL Normal 83.5-101 [facility] Comment on above: Performed By: #### P P, CBC, BUN, CREAT, LYTES, LIPID #### [address] Mean Corpuscular HGB Conc 34.5 g/dL Normal 32.5-35.6 [facility] Comment on above: Performed By: #### P P, CBC, BUN, CREAT, LYTES, LIPID #### [address] Monocytes (Bld) [#/Vol] 0.5 10*3/uL Normal 0.0-0.8 [facility] Comment on above: Performed By: #### P P, CBC, BUN, CREAT, LYTES, LIPID #### [address] Monocytes/100 WBC (Bld) 8.3 % Normal . [facility] Comment on above: Performed By: #### P P, CBC, BUN, CREAT, LYTES, LIPID #### [address] Neutrophils (Bld) [#/Vol] 4.3 10*3/uL Normal 1.8-7.7 [facility] Comment on above: Performed By: #### P P, CBC, BUN, CREAT, LYTES, LIPID #### [address] Neutrophils/100 WBC (Bld) 73.1 % Normal . [facility] Comment on above: Performed By: #### P P, CBC, BUN, CREAT, LYTES, LIPID #### [address] NRBC% 0.1 /100{WBC} Normal 0-0.5 [facility] Comment on above: Performed By: #### P P, CBC, BUN, CREAT, LYTES, LIPID #### [address] Platelet mean volume (Bld) [Entitic vol] 9.9 fL Normal 6.6-10.1 [facility] Comment on above: Performed By: #### P P, CBC, BUN, CREAT, LYTES, LIPID #### [address] Platelets (Bld) [#/Vol] 153 10*3/uL Normal 150-450 [facility] Comment on above: Performed By: #### P P, CBC, BUN, CREAT, LYTES, LIPID #### [facility] [address] [place] [address] [place] RBC (Bld) [#/Vol] 5.34 10*6/uL Normal 3.90-5.60 [facility] Comment on above: Performed By: #### P P, CBC, BUN, CREAT, LYTES, LIPID #### [facility] [address] WBC (Bld) [#/Vol] 5.9 10*3/uL Normal 4.1-10.5 [facility] Comment on above: Performed By: #### P P, CBC, BUN, CREAT, LYTES, LIPID #### [facility] [address] [place] [address] [place] Eosinophils Auto (Bld) [#/Vo l]Ordered By: Jamison Lauren on 07-16-2024 Eosinophils (Bld) [#/Vol] Automated eosinophil count 0.0-0.45 [facility] Eosinophils/100 WBC Auto (Bl d)Ordered By: Jamison Lauren on 07-16-2024 Eosinophils/100 WBC (Bld) Automated eosinophil % . [facility] Erythrocyte distribution wid th Auto (RBC) [Ratio]Ordered By: Jamison Lauren on 07-16-2024 Erythrocyte distribution width (RBC) [Ratio] Erythrocyte distribution width [Ratio] by Automated count 12.0-14.8 [facility] Hematocrit Auto (Bld) [Volum e fraction]Ordered By: Jamison Lauren on 07-16-2024 Hematocrit (Bld) [Volume fraction] Hematocrit [Volume Fraction] of Blood by Automated count 38.8-50.0 [facility] Hemoglobin [Mass/volume] in BloodOrdered By: Jamison Lauren on 07-16-2024 Hemoglobin (Bld) [Mass/Vol] Hemoglobin [Mass/volume] in Blood 13.0-17.0 [facility] Leukocytes [#/volume] correc ulisses for nucleated erythrocytes in Blood by Automated counOrdered By: Jamison Lauren on 07-16-2024 WBC corrected for nucl RBC Auto (Bld) [#/Vol] Leukocytes [#/volume] corrected for nucleated erythrocytes in Blood by Automated coun 4.1-10.5 [facility] Lymphocytes Auto (Bld) [#/Vo l]Ordered By: Jamison Lauren on 07-16-2024 Lymphocytes (Bld) [#/Vol] Lymphocytes [#/volume] in Blood by Automated count 1.00-4.8 [facility] Lymphocytes/100 WBC Auto (Bl d)Ordered By: Jamison Lauren on 07-16-2024 Lymphocytes/100 WBC (Bld) Lymphocytes/100 leukocytes in Blood by Automated count . [facility] MCH Auto (RBC) [Entitic mass ]Ordered By: Jamison Lauren on 07-16-2024 MCH (RBC) [Entitic mass] MCH [Entitic mass] by Automated count 27.5-35.2 [facility] MCHC Auto (RBC) [Mass/Vol]Or dered By: Jamison Lauren on 07-16-2024 MCHC (RBC) [Mass/Vol] MCHC [Mass/volume] by Automated count 32.5-35.6 [facility] MCV Auto (RBC) [Entitic vol] Ordered By: Jamison Lauren on 07-16-2024 MCV (RBC) [Entitic vol] MCV [Entitic volume] by Automated count 83.5-101 [facility] Monocytes Auto (Bld) [#/Vol] Ordered By: Jamison Lauren on 07-16-2024 Monocytes (Bld) [#/Vol] Automated blood monocyte count 0.0-0.8 [facility] Monocytes/100 WBC Auto (Bld) Ordered By: Jamison Lauren on 07-16-2024 Monocytes/100 WBC (Bld) Automated monocyte % . [facility] Neutrophils Auto (Bld) [#/Vo l]Ordered By: Jamison Lauren on 07-16-2024 Neutrophils (Bld) [#/Vol] Neutrophils [#/volume] in Blood by Automated count 1.8-7.7 [facility] Neutrophils/100 WBC Auto (Bl d)Ordered By: Jamison Lauren on 07-16-2024 Neutrophils/100 WBC (Bld) Automated neutrophil % . [facility] Nucleated erythrocytes [Pres ence] in Blood by Automated countOrdered By: Jamison Lauren on 07-16-2024 Nucleated RBC Auto Ql (Bld) Nucleated erythrocytes [Presence] in Blood by Automated count 0-0.5 [facility] Platelet mean volume Auto (B ld) [Entitic vol]Ordered By: Jamison Lauren on 07-16-2024 Platelet mean volume (Bld) [Entitic vol] Platelet mean volume [Entitic volume] in Blood by Automated count 6.6-10.1 [facility] Platelets Auto (Bld) [#/Vol] Ordered By: Jamison Lauren on 07-16-2024 Platelets (Bld) [#/Vol] Platelets [#/volume] in Blood by Automated count 150-450 [facility] RBC Auto (Bld) [#/Vol]Ordere d By: Jamison Lauren on 07-16-2024 RBC (Bld) [#/Vol] Erythrocytes [#/volu me] in Blood by Automated count 3.90-5.60 [facility] WBC Auto (Bld) [#/Vol]Ordere d By: Jamison Lauren on 07-16-2024 WBC (Bld) [#/Vol] Leukocytes [#/volume ] in Blood by Automated count 4.1-10.5 [facility] 24 Hr Urine Uric Acidon Uric Acid, 24 Hr Urine 469.0 Normal 136.1 -771. 1 [facility] Comment on above: Order Comment: URINE VOLUME (MILLILTERS): 2680 Result Comment: Perf ormed at: [facility] - [facility] [address] [id number] Keg Washer: Rc Chavez PhD, Phone: [phone] Performed By: #### P P, CBC, BUN, CREAT, LYTES, LIPID #### [facility] [address] [place] [address] Urine Uric Acid 17.5 mg/dL Normal Not Estab. [facility] Comment on above: Order Comment: URINE VOLUME (MILLILTERS): 2680 Performed By: #### P P, CBC, BUN, CREAT, LYTES, LIPID #### [facility] [address] [place] [address] 24 hour urine creatinine neto surementOrdered By: Jesusita Small on 06-19-2024 Urine Creatinine 24 Hour 1.36 g/24 hr 1.00-2.09 [facility] 24 hour urine sodium measure ment (moles/time)Ordered By: Jesusita Small on 06-19-2024 Sodium (24H U) [Moles/Time] 24 hour urine sodium measurement (moles/time) 40-220 [facility] 24 hour urine uric acid evelyn urement (mass/time)Ordered By: Jesusita Small on 06-19-2024 Urate (24H U) [Mass/Time] 24 hour urine uric acid measurement (mass/time) 136.1-771. 1 [facility] Comment on above: Performed at: [address] [id number] Director: Rc Chavez PhD, Phone: [phone] Calcium [Mass/time] in 24 ho ur UrineOrdered By: Jesusita Small on 06-19-2024 Calcium (24H U) [Mass/Time] Calcium [Mass/time] in 24 hour Urine 0-320 [facility] Calcium [Mass/volume] in 24 hour UrineOrdered By: Jesusita Small on 06-19-2024 Calcium (24H U) [Mass/Vol] Calcium [Mass/volume] in 24 hour Urine Not Estab. [facility] Calcium, 24Hr Urineon 2023 Calcium, Urine 7.2 mg/dL Normal Not Estab. [facility] Comment on above: Order Comment: URINE VOLUME (MILLILTERS): 2680 Performed By: #### P P, CBC, BUN, CREAT, LYTES, LIPID #### [facility] [address] [place] [id number] [place] Calcium, Urine 24 Hr 193 Normal 0-320 [facility] Comment on above: Order Comment: URINE VOLUME (MILLILTERS): 2680 Performed By: #### P P, CBC, BUN, CREAT, LYTES, LIPID #### [facility] [address] [place] [address] [place] Citric Acid, Urine, 24 Houro n 06-19-2024 Citric Acid, Urine 272 mg/L Normal Undefined [facility] Comment on above: Order Comment: URINE VOLUME (MILLILTERS): 2680 Result Comment: This test was developed and its performance characteristics determined by [employer]. It has not been cleared or approved by the Food and Drug Administration. Performed By: #### P P, CBC, BUN, CREAT, LYTES, LIPID #### [address] Citric Acid, Urine, 24HR 729 Normal 320-1240 [facility] Comment on above: Order Comment: URINE VOLUME (MILLILTERS): 2680 Result Comment: Perf ormed at: [facility] [id number] Keg Washer: Lorena Carrillo MD, Phone: [phone] PERFORMED BY: [place] [address] PATHOLOGIST RESOURCE DEVELOPMENT DIRECTOR TEX HAUSER M.D. Performed By: #### P P, CBC, BUN, CREAT, LYTES, LIPID #### [address] Aminta Time and Vol 24 hr uron 06-19-2024 Total Volume, Urine 2680 Normal [facility] Comment on above: Order Comment: URINE COLLECTION TIME (HRS): 24 URINE VOLUME (MILLILTERS): 2680 Result Comment: PERF ORMED BY: [place] [address] PATHOLOGIST RESOURCE DEVELOPMENT DIRECTOR GWEN CRUZ M.D. Performed By: #### P P, CBC, BUN, CREAT, LYTES, LIPID #### [address] Urine Collection Time 24 Normal [facility] Comment on above: Order Comment: URINE COLLECTION TIME (HRS): 24 URINE VOLUME (MILLILTERS): 2680 Performed By: #### P P, CBC, BUN, CREAT, LYTES, LIPID #### [address] Creatinine [Mass/volume] in UrineOrdered By: Jesusita Small on 06-19-2024 Creatinine (U) [Mass/Vol] Creatinine [Mass/volume] in Urine [facility] Comment on above: No reference range e stablished Creatinine, 24 Hr Urineon Creatinine 24 Hour, Urine 1.36 g/24_hr Normal 1.00-2.09 [facility] Comment on above: Order Comment: URINE COLLECTION TIME (HRS): 24 URINE VOLUME (MILLILTERS): 2680 Performed By: #### P P, CBC, BUN, CREAT, LYTES, LIPID #### [facility] [address] Creatinine, Urine 51.00 mg/dL Normal [facility] Comment on above: Order Comment: URINE COLLECTION TIME (HRS): 24 URINE VOLUME (MILLILTERS): 2680 Result Comment: No r eference range established Performed By: #### P P, CBC, BUN, CREAT, LYTES, LIPID #### [facility] [address] [place] [id number] [place] Magnesium [Mass/time] in 24 hour UrineOrdered By: Jesusita Small on 06-19-2024 Magnesium (24H U) [Mass/Time] Magnesium [Mass/time] in 24 hour Urine 12.0-293.0 [facility] Comment on above: Performed at: [facility] [place] [id number] Director: Rc Chavez PhD, Phone: [phone] Magnesium [Mass/volume] in U rineOrdered By: Jesusita Small on 06-19-2024 Magnesium (U) [Mass/Vol] Magnesium [Mass/volume] in Urine Not Estab. [facility] Magnesium, Urine 24Hron 11-0 Magnesium, 24Hr Urine 117.9 Normal 12.0-293.0 [facility] Comment on above: Order Comment: URINE VOLUME (MILLILTERS): 2680 Result Comment: Perf ormed at: [facility] - [facility] [place] [id number] Keg Washer: Rc Chavez PhD, Phone: [phone] Performed By: #### P P, CBC, BUN, CREAT, LYTES, LIPID #### [place] [address] [place] Magnesium, Urine 4.4 mg/dL Normal Not Estab. [facility] Comment on above: Order Comment: URINE VOLUME (MILLILTERS): 2680 Performed By: #### P P, CBC, BUN, CREAT, LYTES, LIPID #### [facility] [address] No Panel InformationOrdered By: Jesusita Small on 06-19-2024 Urine Citric Acid 272 mg/L Undefined [facility] Comment on above: This test was develo ped and its performance characteristicsdetermined by [facility]. It has not been cleared orapproved by the Food and Drug Administration. Urine Citric Acid 24 Hour 729 mg/24 hr 320-1240 [facility] Comment on above: Performed at: [facility] [address] [id number] Director: Lorena Carrillo MD, Phone: [phone] Oxalate [Mass/time] in 24 ho ur UrineOrdered By: Jesusita Small on 06-19-2024 Oxalate (24H U) [Mass/Time] Oxalate [Mass/time] in 24 hour Urine [facility] Comment on above: Performed at: [facility] [address] [id number] Director: Lorena Carrillo MD, Phone: [phone] Oxalate [Mass/volume] in Uri neOrdered By: Jesusita Small on 06-19-2024 Oxalate (U) [Mass/Vol] Oxalate [Mass/vol ume] in Urine Undefined [facility] Oxalate, Quant, 24Hr Urineon 06-19-2024 Oxalates, Urine 14 mg/L Normal Undefined [facility] Comment on above: Order Comment: URINE VOLUME (MILLILTERS): 2680 Performed By: #### P P, CBC, BUN, CREAT, LYTES, LIPID #### [facility] [address] [place] [address] [place] Oxalates, Urine 24Hr 38 Normal [facility] Comment on above: Order Comment: URINE VOLUME (MILLILTERS): 2680 Result Comment: Perf ormed at: [facility] [address] [id number] Keg Washer: Lorena Carrillo MD, Phone: [phone] Performed By: #### P P, CBC, BUN, CREAT, LYTES, LIPID #### [facility] [address] [place] [address] [place] Phosphate [Mass/time] in 24 hour UrineOrdered By: Jesusita Small on 06-19-2024 Phosphate (24H U) [Mass/Time] Phosphate [Mass/time] in 24 hour Urine 390-1425 [facility] Phosphate [Mass/volume] in U rineOrdered By: Jesusita Small on 06-19-2024 Phosphate (U) [Mass/Vol] Phosphate [Mass/volume] in Urine Not Estab. [facility] Phosphorus, 24Hr Urineon Phosphorous, Urine 16.1 mg/dL Normal Not Estab. [facility] Comment on above: Order Comment: URINE VOLUME (MILLILTERS): 2680 Performed By: #### P P, CBC, BUN, CREAT, LYTES, LIPID #### [facility] [address] [place] [id number] [place] Phosphorus, Urine 24Hr 431 Normal 390-1425 [facility] Comment on above: Order Comment: URINE VOLUME (MILLILTERS): 2680 Performed By: #### P P, CBC, BUN, CREAT, LYTES, LIPID #### [facility] [address] [place] [id number] [place] Sodium [Moles/volume] in Uri neOrdered By: Jesusita Small on 06-19-2024 Sodium (U) [Moles/Vol] Sodium [Moles/vol ume] in Urine [facility] Comment on above: No reference range e stablished Sodium, 24 Hr Urineon 2023 Sodium (U) [Moles/Vol] 46.0 mmol/L Normal T [facility] Comment on above: Order Comment: URINE COLLECTION TIME (HRS): 24 URINE VOLUME (MILLILTERS): 2680 Result Comment: No r eference range established Performed By: #### P P, CBC, BUN, CREAT, LYTES, LIPID #### [facility] [address] [place] [id number] [place] Sodium 24 Hour Urine 123 Normal 40-220 [facility] Comment on above: Order Comment: URINE COLLECTION TIME (HRS): 24 URINE VOLUME (MILLILTERS): 2680 Performed By: #### P P, CBC, BUN, CREAT, LYTES, LIPID #### [facility] [address] Total urine volume measureme ntOrdered By: Jesusita Small on 06-19-2024 Specimen volume (U) Urine volume measurement [facility] Urine collection time durati onOrdered By: Jesusita Small on 06-19-[address] biopsy [facility] Urine uric acid measurement (mass/volume)Ordered By: Jesusita Small on 06-19-2024 Urate (U) [Mass/Vol] Urine uric acid neto surement (mass/volume) Not Estab. [facility] Calcium [Mass/volume] in Ser um or PlasmaOrdered By: Jesusita Small on 06-17-2024 Calcium [Mass/Vol] 9.3 mg/dL Normal 8.6-10.3 [facility] Comment on above: Performed By: #### P P, CBC, BUN, CREAT, LYTES, LIPID #### [address] Calcium [Mass/Vol] Calcium [Mass/volume ] in Serum or Plasma 8.6-10.3 [facility] Carbon dioxide, total [Moles /volume] in Serum or PlasmaOrdered By: Jesusita Small on 06-17-2024 CO2 [Moles/Vol] 31.8 mmol/L High 21.0-31.0 [facility] Comment on above: Performed By: #### P P, CBC, BUN, CREAT, LYTES, LIPID #### [place] [id number] [facility] CO2 [Moles/Vol] Carbon dioxide, tota l [Moles/volume] in Serum or Plasma High 21.0-31.0 [facility] Chloride [Moles/volume] in S claudia or PlasmaOrdered By: Jesusita Small on 06-17-2024 Chloride [Moles/Vol] 104 mmol/L Normal 98-107 [facility] Comment on above: Performed By: #### P P, CBC, BUN, CREAT, LYTES, LIPID #### [place] [id number] [facility] Chloride [Moles/Vol] Chloride [Moles/vol ume] in Serum or Plasma 98-107 [facility] Creatinineon 06-17-2024 GFR/1.73 sq M.predicted MDRD (S/P/Bld) [Vol rate/Area] mL/min/{1.73_m2} Normal [facility] Comment on above: Performed By: #### P P, CBC, BUN, CREAT, LYTES, LIPID #### [place] [id number] [facility] Creatinine [Mass/volume] in Serum or PlasmaOrdered By: Jesusita Small on 06-17-2024 Creatinine [Mass/Vol] 0.90 mg/dL Normal 0.70-1.30 [facility] Comment on above: Performed By: #### P P, CBC, BUN, CREAT, LYTES, LIPID #### [place] [id number] [facility] Creatinine [Mass/Vol] Creatinine [Mass/v olume] in Serum or Plasma 0.70-1.30 [facility] No Panel InformationOrdered By: Jesusita Small on 06-17-2024 Estimated GFR (CKD-EPI) > 60.0 mL/Min [facility] Creatinine Clearance (Chem N/A [facility] Parathyrin.intact [Mass/volu me] in Serum or PlasmaOrdered By: Jesusita Small on 06-17-2024 Parathyrin.intact [Mass/Vol] 64.1 pg/mL [facility] Parathyrin.intact [Mass/Vol] Parathyrin.intact [Mass/volume] in Serum or Plasma [facility] Parathyroid Hormone Intacton 06-17-2024 Parathyroid Hormone Intact 64.1 pg/mL Normal [facility] Comment on above: Result Comment: PERF ORMED BY: [place] [id number] PATHOLOGIST RESOURCE DEVELOPMENT DIRECTOR GWEN CRUZ M.D. Performed By: #### P P, CBC, BUN, CREAT, LYTES, LIPID #### [address] [place] [address] [facility] Potassium [Moles/volume] in Serum or PlasmaOrdered By: Jesusita Small on 06-17-2024 Potassium [Moles/Vol] 4.3 mmol/L Normal 3.5-5.1 [facility] Comment on above: Performed By: #### P P, CBC, BUN, CREAT, LYTES, LIPID #### [facility] [address] Potassium [Moles/Vol] Potassium [Moles/v olume] in Serum or Plasma 3.5-5.1 [facility] Serum or plasma anion gap de terminationOrdered By: Jesusita Small on 06-17-2024 Anion gap [Moles/Vol] 10.5 mmol/L Normal 6.0-15.0 [facility] Comment on above: Performed By: #### P P, CBC, BUN, CREAT, LYTES, LIPID #### [address] Anion gap [Moles/Vol] Serum or plasma an ion gap determination 6.0-15.0 [facility] Sodium [Moles/volume] in Ser um or PlasmaOrdered By: Jesusita Small on 06-17-2024 Sodium [Moles/Vol] 142 mmol/L Normal 136-145 [facility] Comment on above: Performed By: #### P P, CBC, BUN, CREAT, LYTES, LIPID #### [facility] [address] [place], [place] [id number] [facility] Sodium [Moles/Vol] Sodium [Moles/volume ] in Serum or Plasma 136-145 [facility] Urate [Mass/volume] in Serum or PlasmaOrdered By: Jesusita Small on 06-17-2024 Urate [Mass/Vol] 4.3 mg/dL Low 4.4-7.6 [facility] Comment on above: Result Comment: PERF ORMED BY: [place] [address] PATHOLOGIST RESOURCE DEVELOPMENT DIRECTOR GWEN CRUZ M.D. Performed By: #### P P, CBC, BUN, CREAT, LYTES, LIPID #### [facility] [address] [place] [address] [facility] Urate [Mass/Vol] Urate [Mass/volume] in Serum or Plasma Low 4.4-7.6 [facility] Urea nitrogen [Mass/volume] in Serum or PlasmaOrdered By: Jesusita Small on 06-17-2024 Urea nitrogen [Mass/Vol] 14 mg/dL Normal 03-05 [facility] Comment on above: Performed By: #### P P, CBC, BUN, CREAT, LYTES, LIPID #### [facility] [address] [place] [address] [facility] Urea nitrogen [Mass/Vol] Urea nitrogen [Mass/volume] in Serum or Plasma 03-05 [facility] Laboratory - Hematology and Cell countson 05-12-2024 HbA1c (Bld) [Mass fraction] 5.3 % [facility] No Panel Informationon 05-12 [facility] Main OR Intraoperative Recor don 04-14-2024 Main OR Intraoperative Record Main OR Intraoperative Record IntraOp Document Type FTURO Summary Primary Physician: Jesusita SMALL MD Finalized Date/Time: 04/14/24 11:47:44 Pt. Name: JESSENIA PYLE/Sex: 1945 Male Med Rec #: [id number] Physician: Jesusita SMALL MD Financial #: [id number] Pt. Type: O Room/Bed: / Admit/Disch: 04/14/24 10:36:45 - Institution: Case Times FTURO Entry 1 Patient Times In Room 04/14/24 11:37:00 Out Room 04/14/24 11:47:00 Procedure Times Start 04/14/24 11:41:00 Stop 04/14/24 11:43:00 Anesthesia Times Last Modified By: Gabino CASTELAN, Alia Donnelly 04/14/24 11:43:43 Case Attendance FTURO Entry 1 Entry 2 Entry 3 Case Attendee Jesusita SMALL MD, RN, Madison Taylor Role Performed Surgeon - Primary Abstract Searcher - Primary Scrub - Primary Time In 04/14/24 11:37:00 04/14/24 11:37:00 04/14/24 11:37:00 Time Out 04/14/24 11:47:00 04/14/24 11:47:00 04/14/24 11:47:00 Procedure CYSTOSCOPY LOCAL WITH CYSTOSCOPY LOCAL WITH CYSTOSCOPY LOCAL WITH STENT REMOVAL(Right) STENT REMOVAL(Right) STENT REMOVAL(Right) Comments Last Modified By: Gabino CASTELAN, Alia Lloyd RN, Alia Lloyd RN, Alia Donnelly 04/14/24 Nati Donnelly 04/14/24 Nati Donnelly 04/14/24 11:43:46 11:43:46 11:43:46 Entry 4 Case Attendee JO HALEY, COOKIE Role Performed Staff - Other Time In 04/14/24 11:37:00 Time Out 04/14/24 11:47:00 Procedure CYSTOSCOPY LOCAL WITH STENT REMOVAL(Right) Comments OBSERVING Last Modified By: Gabino CASTELAN, Alia Donnelly 04/14/24 11:43:46 Surgical Procedures FTURO Entry 1 Procedure Description Procedure CYSTOSCOPY LOCAL WITH Modifiers Right STENT REMOVAL Surgeon Description CYSTOSCOPY, RIGHT STENT REMOVAL Primary Procedure Yes Primary Surgeon Jesusita SMALL MD 04/14/24 11:41:00 Stop 04/14/24 11:43:00 Anesthesia Type Local Surgical Service Urology Wound Class 2 - Clean-Contaminated Last Modified By: Gabino CASTELAN, Alia Donnelly 04/14/24 11:43:46 General Case Data FTURO Pre-Care Text: Classifies surgical wound, implements aseptic technique, initiates traffic control Entry 1 Case Information OR URO 1 FT Case Level None Wound Class 2 - Clean-Contaminated Specialty Urology Preop Diagnosis STATUS POST RIGHT STENT Postop Same As Preop Yes PLACEMENT Postop Diagnosis STATUS POST RIGHT STENT Outcomes Met? Yes PLACEMENT Last Modified By: Gabino CASTELAN, Alia Donnelly 04/14/24 11:41:27 Post-Care Text: The patient is free from signs and symptoms of infection EU IntraOp - FTURO Pre-Care Text: Implements protective measures prior to operative or invasive procedure, confirms identity before the operative or invasive procedure, verifies operative procedure, surgical site, and laterality Entry 1 EU Perioperative Protocols Procedure(s) CYSTOSCOPY LOCAL WITH Patient Identity Birthday, ID Band STENT REMOVAL(Right) Verified (select at Check, Patient least 2): Participation Consents / H and P H&P, Surgery/Procedure Operative Site N/A Verified Consent Marking Verified Surgical Site Yes Laterality Verified Yes Verified Procedure Verified Yes Correct Patient Yes Position Verified Availability Equipment, Medication Time Out STACI HALEY, Jesusita Payan, Verified (If Participants Gabino CASTELAN, Alia Applicable) STACI Greene MD, Jesusita Payan, JO HALEY, COOKIE Time Out Complete 04/14/24 11:40:00 Allergies Reviewed? Yes Allergies Reviewed Self/Patient With Body Position Supine Prep Area PENIS Prep Agents Betadine Solution Skin. Condition Unable to Visualize Description PARTIALLY CLOTHED Additional None Specimens Collected Vitals - EU Blood Pressure 171/65 Pulse 77 bpm Respirations SPO2 I&O - EU Outcomes Met? Yes Last Modified By: Alia Lloyd RN 04/14/24 11:42:17 Post-Care Text: The patient is free from signs and symptoms of injury caused by extraneous objects Implant Log FTURO Pre-Care Text: Records devices implanted during the operative or invasive procedure Entry 1 Implant/Explant Explant Implant Identification Description PREVIOUSLY IMPLANTED STENT Usage Data Outcomes Met? Yes Last Modified By: Alia Lloyd RN 04/14/24 11:42:40 Post-Care Text: The patient is free from signs and symptoms of injury caused by extraneous objects Sign Out FTURO Entry 1 Before Patient Leaves OR Nurse verbally Yes Nurse verbally Yes confirms with the confirms with the team the name of team that the procedure(s) instrument, sponge, recorded and needle counts are correct (or N/A) Nurse verbally n/a Nurse verbally n/a confirms with the confirms with the team how the team whether there specimen is labeled are any equipment (including patient problems to be name), if applicable addressed Sign Out Complete 04/14/24 11:43:00 Last Modified By: Alia Lloyd RN 04/14/24 11:43:45 (more content not included)... Normal [facility] Main OR Preoperative Recordo n 04-14-2024 Main OR Preoperative Record Main OR Preoperative Record Holding Area Document Type FTURO Summary Primary Physician: Jesusita SMALL MD Finalized Date/Time: 04/14/24 11:43:13 Pt. Name: JESSENIA PYLE/Sex: 1945 Male Med Rec #: [id number] Physician: Jesusita SMALL MD Financial #: [id number] Pt. Type: O Room/Bed: / Admit/Disch: 04/14/24 10:36:45 - Institution: Case Times Holding FTURO Pre-Care Text: Verifies consent for planned procedure, identifies individual values and wishes concerning care, includes family members in perioperative teaching Secures patient's records' belongings, and valuables, maintains patient's dignity and privacy, and maintains patient confidentiality Entry 1 In Holding 04/14/24 11:01:00 Outcomes Met? Yes Last Modified By: Mary Mao LPN 04/14/24 11:01:42 Post-Care Text: The patient participates in decisions affecting his or her perioperative plan of care The patient's right to privacy is maintained Surgery Checklist FTURO Entry 1 Patient Birthday, ID Band Procedure Surgical Consent, With Identification: Check, Patient Verification: Patient Participation NPO after Midnight: n/a Personal Items: Dentures Limitations: up ad trent Complaints of Pain: No Skin Integrity Intact, [place], Warm, & Dry Vitals - EU Blood Pressure 171/65 Pulse 77 bpm Respirations 18 br/min SPO2 98 % RN Reviewed Yes Last Modified By: Alia Lloyd RN 04/14/24 11:43:10 Finalized By: Alia Lloyd RN Document Signatures Signed By: Mary Mao LPN 04/14/24 11:02 Alia Lloyd RN 04/14/24 11:43 Normal [facility] Operative Reporton Operative Report Operative Report Patient: JESSENIA PYLE Age: 79 years Sex: Male : 1945 Associated Diagnoses: None Author: Jesusita SMALL MD Procedure Operative Information Details: Date/ Time: 04/14/2024 11:49:00. Pre-Op Dx: Foreign Body in Bladder - T19.1XXA. Post-Op Dx: Same. Anesthesia Type: Local. Procedure: Local Cystoscopy with Stent Removal. Complications: None. Risks/Benefits/Informed Consent: Surgical risks, benefits, details of the procedure have been explained to the patient, Full informed consent has been obtained. Intraoperative Information Prepped: The patient was placed in supine position, The patient was prepped with the Betadine solution. Anesthesia: 2% Xylocaine Jelly per urethra. Procedure: Cystoscopy and Right Stent Removal, The flexible Cystoscope was passed in retrograde fashion into the bladder without difficulty, The bladder was viewed in entirety and found to be without tumors or stones, Mild inflammation was seen surrounding the orifice with the stent seen protruding from it, The stent was then grasped and removed in its entirety. Specimens Removed: None. Devices Implanted: None. Postoperative Information Discharge: The patient tolerated the procedure well and was subsequently discharged home. Normal [facility] Comment on above: Result Comment: Elec tronically Signed By: STACI HALEY, Jesusita Woodall\Date and Time Signed: 04/14/24 11:49 EDT Calculus Analysison 04-12-20 24 Calcium oxalate dihydrate Infrared spectroscopy (Stone) [Mass fraction] 10 % Invalid Interpretation Code [facility] Comment on above: Performed By: #### 1 [id number] #### [facility] [address] [place] [address] Calcium oxalate monohydrate (Stone) [Mass fraction] 90 % Invalid Interpretation Code [facility] Comment on above: Performed By: #### 1 [id number] #### [facility] [address] [place] [address] Color (Stone) [place] Invalid Interpretation Code [facility] Comment on above: Performed By: #### 1 [id number] #### [facility] [address] [place] [address] Composition Comment Invalid Interpretation Code [facility] Comment on above: Result Comment: Perc entage (Represents the % composition) Performed By: #### 1 [id number] #### [facility] [address] [place] [address] Disclaimer: Comment Invalid Interpretation Code [facility] Comment on above: Result Comment: This test was developed and its performance characteristics determined by [employer]. It has not been cleared or approved by the Food and Drug Administration. Performed at: [address] [id number] Schultz Performed By: #### 1 [id number] #### [facility] [address] [place] [address] Laboratory comment Dameon (Report) Comment Invalid Interpretation Code [facility] Comment on above: Result Comment: Michael lott questions regarding Calculi Analysis contact [facility] at: [phone]. Performed By: #### 1 [id number] #### [facility] [address] [place] [address] Please Note: Comment Invalid Interpretation Code [facility] Comment on above: Result Comment: Calc enid report will follow via computer, mail or senior design engineering specialist delivery. Performed By: #### 1 [id number] #### [facility] [address] [place] [address] Size (Stone) [Entitic vol] 4x3 Invalid Interpretation Code [facility] Comment on above: Result Comment: Sing le piece received. Performed By: #### 1 [id number] #### [facility] [address] [place] [address] Specimen source subject Nom Comment Invalid Interpretation Code [facility] Comment on above: Result Comment: Not provided Performed By: #### 1 [id number] #### [facility] [address] [place] [address] Stone Photo Comment Invalid Interpretation Code [facility] Comment on above: Result Comment: Phot ograph will follow under a separate cover Performed By: #### 1 [id number] #### [facility] [address] [place] [address] Weight (Stone) 29 mg Invalid Interpretation Code [facility] Comment on above: Performed By: #### 1 [id number] #### [facility] [address] [place] [address] ED Note-Physicianon 04-02-20 ED Note-Physician ED Note-Physician Basic Information Time Seen: Stephanie Angulo PA-C 03/26/2024 16:08 Chief Complaint this am developed right flank pain radiates into right groin. n/v. denies hematuria or dysuria. hx kidney stones. History of Present Illness 78-year-old male presents to the ER with complaints of right sided flank pain. Pain starts in his right flank and radiates to the right groin area. Pain is associated with nausea and vomiting. Denies any blood in the urine, dysuria or urinary frequency. Patient does have history of kidney stones, is followed by Dr. Small in urology. Denies any recent fevers or chills. Review of Systems All organ systems are reviewed. Pertinent positive and negative findings as mentioned in the HPI. Physical Exam Vitals & Measurements T: 36.5 ?C(Oral) HR: 91(Monitored) RR: 16 BP: 164/111 SpO2: 93% HT: 187 cm WT: 101.4 kg BMI: 29 GENERAL APPEARANCE: Well developed, well nourished, alert and cooperative, and appears to be in no acute distress. HEAD: normocephalic, atraumatic EYES: PERRL, EOMI. Vision is grossly intact. EARS: External auditory canals clear, hearing grossly intact. NOSE: No nasal discharge. THROAT: Oral cavity and pharynx normal. Oral mucosa moist. CARDIAC: Normal heart sounds, no murmurs. Rhythm is regular. LUNGS: Clear to auscultation without rales, rhonchi, wheezing or diminished breath sounds. ABDOMEN: Soft, nondistended. Mild tenderness to the palpation of the right abdomen MUSCULOSKELETAL: Adequately aligned spine. ROM intact spine and extremities. BACK: Tenderness of the right flank without true CVA tenderness. NEUROLOGICAL: CN grossly intact. Strength and sensation symmetric and intact throughout. SKIN: Skin normal color, texture and turgor with no lesions or eruptions. Assessment/Plan 1. Kidney stone on right side (N20.0: Calculus of kidney) Ordered: oxycodone, 5 mg = 1 tab(s), Oral, q6hr, PRN for pain, X 5 day(s), # 20 tab(s), Refills(s) 0, Pharmacy: [facility]/pharmacy #[id number], 187, cm, 03/26/24 16:17:00 EDT, Height/Length Dosing, 101.4, kg, 03/26/24 16:17:00 EDT, Weight Dosing Orders: ketorolac, 15 mg = 1 mL, Injection, IV Push, Once, Stop date 03/26/24 18:28:00 EDT, STAT, Start date 03/26/24 18:28:00 EDT, 03/26/24 18:28:00 EDT morphine, 4 mg = 1 mL, Injection, IV Push, Once, Stop date 03/26/24 16:47:00 EDT, STAT, Start date 03/26/24 16:47:00 EDT, 03/26/24 16:47:00 EDT ondansetron, 4 mg = 1 tab(s), Oral, q8hr, # 12 tab(s), Refills(s) 0, Pharmacy: [facility]/pharmacy #[id number], 187, cm, 03/26/24 16:17:00 EDT, Height/Length Dosing, 101.4, kg, 03/26/24 16:17:00 EDT, Weight Dosing ondansetron, 4 mg = 2 mL, Injection, IV Push, Once, Stop date 03/26/24 16:47:00 EDT, STAT, Start date 03/26/24 16:47:00 EDT, 03/26/24 16:47:00 EDT oxycodone, 1 EA, Tab, Oral, Once, Stop date 03/26/24 18:10:00 EDT, STAT, Start date 03/26/24 18:10:00 EDT Basic Metabolic Panel CBC w/ Auto Diff CT Abdomen/Pelvis w/o Contrast eGFR Extra SST Tube UA with Cult Rflx 78-year-old male with past medical history of kidney stone presents the ER complaining of right-sided flank pain. In the ER patient is afebrile vitals are stable, no acute distress. Patient's pain treated with morphine and Zofran. Labs reviewed and noted, no concerning findings, urinalysis without evidence of infection. CT scan shows a distal 5 mm stone. Results are discussed with the patient. Educated on supportive care. Discharged home with pain medication and urine strainer. Patient takes Flomax daily. Patient to follow with urology as an outpatient and is to return to the ER with any new or worsening symptoms. Patient voices understanding and is agreeable to plan Medications Administered Given ketorolac 15 mg/mL Inj, 15 mg, IV Push morphine 4 mg/mL Inj, 4 mg, IV Push TO GO oxycodone 5 mg, 1 EA, Oral Zofran 4 mg/2 mL Injection, 4 mg, IV Push Disposition Plan Patient Discharge Condition Improved, stable Discharge Disposition To home Discharge Prescription List Prescriptions oxyCODONE 5 mg Tab, 5 mg= 1 tab(s), Oral, q6hr, PRN Zofran ODT 4 mg Tab-Dis, 4 mg= 1 tab(s), Oral, q8hr Follow-up With When Contact Information Jesusita SMALL In 3 days 03/29/2024 EDT [address] [facility] [place] [address]- Business (1) [address] [facility] [place] [address] [place] [address] Business (1) Additional Instructions: Patient Education Dietary Guidelines to Help Prevent Kidney Stones Kidney Stones Attestation Patient was treated and evaluated by the Physician [employer]. The attending physician was in the Emergency Department at all times and supervised care. The case was discussed with the attending physician and diagnostics were reviewed as needed. 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 Normal [facility] Comment on above: Result Comment: Elec tronically Signed By: Stephanie Angulo PA-C\.br\Date and Time Signed: 03/26/24 19:33 EDT\.br\Electronically Co-Signed By: Cole King MD\.br\Date and Time Co-Signed: 04/02/24 22:03 EDT Ambulatory Visit Summaryon 0 04-01-2024 Ambulatory Visit Summary Ambulatory Visit Summary JESSENIA PYLE :1945 Visit Date:04/01/2024 Ambulatory Visit Instructions Your Diagnosis Kidney stone Ureteral calculus, right BPH with urinary obstruction Your Care Team Attending Physician - STACI HALEY, Jesusita Payan Primary Care Physician - CHRIS PIERER DO This Is Your Medications List potassium citrate (potassium citrate 15 mEq oral tablet, extended release) tamsulosin (tamsulosin 0.4 mg Cap) Contact prescribing physician if questions or concerns albuterol amlodipine (amLODIPine 5 mg Tab) aspirin (aspirin 81 mg oral tablet) doxazosin (doxazosin 2 mg Tab) ezetimibe (ezetimibe 10 mg Tab) fluticasone (fluticasone propionate) isosorbide mononitrate (isosorbide mononitrate 30 mg ER Tab) multivitamin ondansetron (Zofran ODT 4 mg Tab-Dis) rosuvastatin (rosuvastatin 40 mg Tab) semaglutide (Ozempic 8 mg/3 mL (2 mg dose) subcutaneous solution) tamsulosin (tamsulosin 0.4 mg Cap) Procedures Performed Arthroscopy of knee (10/02/2019), Lithotripsy (03/03/2010), Cystourethroscopy with ureteroscopy and pyeloscopy (04/18/2006), TURP - Transurethral resection of prostate (04/09/2001), Bone spur of left foot, Colonoscopy, Tonsillectomy, Vasectomy. Discharge Vitals Temperature (Temporal Artery) 37 ?C Heart Rate (Peripheral) 85 Respiratory Rate 18 Blood Pressure 137/88 Height 187 cm Height 74 in Weight 102 kg Weight 224.4 lb BMI 29.17 What to do next Scheduled Follow-Up Appointments Saturday 10:30 AM EDT With: Jesusita SMALL MD Where: [facility] [address] [place] [address]- You Need to Schedule the Following Appointments Follow Up with Jesusita SMALL MD, URL When: Where: [facility] [address], [place] [address] [phone] Medications What How Much When Instructions Unchanged potassium citrate (potassium citrate 15 mEq oral tablet, extended release) 2 Tablets By Mouth 2 times a day Unchanged tamsulosin (tamsulosin 0.4 mg Cap) 1 Capsules By Mouth Every day Unchanged albuterol Contact prescribing physician if questions or concerns Unchanged amlodipine (amLODIPine 5 mg Tab) 1 Tablets By Mouth Every day Contact prescribing physician if questions or concerns Unchanged aspirin (aspirin 81 mg oral tablet) 1 Tablets By Mouth Every day Contact prescribing physician if questions or concerns Unchanged doxazosin (doxazosin 2 mg Tab) Contact prescribing physician if questions or concerns Unchanged ezetimibe (ezetimibe 10 mg Tab) By Mouth Every day Contact prescribing physician if questions or concerns Unchanged fluticasone (fluticasone propionate) Inhalation Contact prescribing physician if questions or concerns Unchanged isosorbide mononitrate (isosorbide mononitrate 30 mg ER Tab) 1 Tablets By Mouth Once a day (in the morning) heart Contact prescribing physician if questions or concerns Unchanged multivitamin Contact prescribing physician if questions or concerns Unchanged ondansetron (Zofran ODT 4 mg Tab-Dis) 1 Tablets By Mouth Every 8 hours Contact prescribing physician if questions or concerns Unchanged rosuvastatin (rosuvastatin 40 mg Tab) 1 Tablets Contact prescribing physician if questions or concerns Unchanged semaglutide (Ozempic 8 mg/ 3 mL (2 mg dose) subcutaneous solution) Contact prescribing physician if questions or concerns Unchanged tamsulosin (tamsulosin 0.4 mg Cap) 1 Capsules By Mouth Every day Contact prescribing physician if questions or concerns Allergies atorvastatin (Muscle pain) cerivastatin (Muscle pain) colesevelam (Unknown) ezetimibe (Muscle pain) fluvastatin (Muscle pain) metaxalone (Unknown) simvastatin (Muscle pain) Problems Ongoing - Any problem that you are currently receiving treatment for. Benign prostatic hyperplasia (BPH) with post-void dribbling BPH with urinary obstruction Elevated cholesterol Elevated PSA Feeling of incomplete bladder emptying GI bleed Hypertension Kidney stone Left epididymitis Nephrolithiasis Nocturia Retrograde ejaculation Testicle pain Ureteral calculus, right Urine frequency Patient Survey You may receive a survey via text or e-mail asking about your office visit. Please share your experience with us by completing your survey. We appreciate your feedback and thank you for choosing us for your care. Normal [facility] Urology Office/Clinic Noteon 04-01-2024 Urology Office/Clinic Note Urology Office/Clinic Note Chief Complaint ureteral stone HPI Staff F/u to [facility] ED visit 03/26/24 for right flank pain.CT done at that time showed a mildly obstructing 5mm calculus in the right distal ureter. Pt states the pain started a little over a week ago and he is experiencing nausea. Dx: kidney stone and BPH with urinary obstruction. Dysuria: no Incomplete bladder emptying: no Hematuria: no Frequency: yes Urgency: no Nocturia: 1-2x Stream: good steady Leaking: no Post void dripping: no Wearing pads/ Depends: no Urge incontinence: no Stress incontinence: no Incontinence without Sensory Awareness: no Abdominal pain: sharp pain that is radiating from the back Flank pain: right sided sharp Sexual complaints: no History of Present Illness Tests reviewed: reviewed UA, ER notes and labs, CT scans, KUB I have reviewed the previous health record information and history for this patient from Dr. Small and external providers. I have reviewed and verified the staff HPI to be accurate for this encounter. Review of Systems PHQ Score Initial Depression Screen Score: 0 SCORE ROS - Provider Constitutional: denies weight loss, denies hot flashes. Eyes: denies eye problems. Gastrointestinal: denies nausea, denies vomiting. Cardiovascular: denies chest pain or angina. Integumentary: no dryness Musculoskeletal: denies musculoskeletal symptoms. ENMT: denies otolaryngeal symptoms. Respiratory: no shortness of breath. Heme/Lymph: denies easy bleeding tendency, denies easy bruising tendency. Psychiatric: no confusion, no anxiety. Genitourinary: See HPI. Physical Exam Vitals & Measurements T: 37 ?C(Temporal Artery) HR: 85(Peripheral) RR: 18 BP: 137/88 HT: 74 in HT: 187 cm WT: 102 kg WT: 224.4 lb BMI: 29.17 General Appearance: alert, no distress, well nourished, well developed male. Assessment/Plan 1. Kidney stone (N20.0: Calculus of kidney) S/p R ESWL 03/16/21. 24hr urine completed 07/09/23 - Total volume 1980 mL, U24 Na 323 H. Results were given over the phone. KUB 04/24/22 [facility] - several small stones at RLP, measuring up to 4mm. CT AP wo con 02/20/24 [facility] - No R renal stones. Several L renal calculi, predominantly at lower pole measuring 5-6 mm. No hydro. No ureteral dilatation though there is periureteral stranding on R. No ureteral stones. CT AP wo con 03/26/24 [facility] - 5 mm R distal ureteral calculus, ~4cm upstream from R UVJ. Associated upstream mild R hydroureteronephrosis with R perinephric stranding. Multiple additional R renal calculi with largest in RLP measuring 6mm. No distinct L renal calculi. KUB 04/01/24 [facility] - report still pending. Personal review: R ureteral stone sill present. Taking Urocit-K 15mEq bid. States he passed a stone after [facility] [place]. Reviewed imaging results. Likely passed 5-6mm L renal stone visualized on CT from February but still has R ureteral stone per CT from this month. Advised pt he has a R renal stone as well. Has had nausea and flank pain. Discussed operative intervention. Pt wishes to proceed. -Will schedule a Cystoscopy with Right Ureteroscopy, Right Laser Litho, Right Stone Basket, Right possible stent placement for ureteral and renal stones. The procedure risks, benefits, alternatives and complications have been discussed with the patient. These include but are not limited to bleeding, pain, infection, ureteral perforation, extravasation, stricture formation, sepsis, obstruction, inability to reach the stone, inability to fragment the stone, and inability to retrieve all stone fragments. The need for ancillary procedures such as stent placement and removal, retrograde urography, and percutaneous nephrostomy were also discussed. The patient also understood that a ureteral stent may be placed and removal of the stent is critical. Failure to follow up for stent removal can result in recurrent UTIs, encrustation of the stent, loss of kidney function and need for nephrectomy. All of their questions and concerns have been addressed. Full informed consent has been obtained. Will order General anesthesia. -Dietary modifications -Increase fluid intake 2. Ureteral calculus, right (N20.1: Calculus of ureter) See #1. 3. BPH with urinary obstruction (N40.1: Benign prostatic hyperplasia with lower urinary tract symptoms) S/p TURP 2010. Taking Tamsulosin 0.4mg qd. Follow-up With When Contact Information STACI HALEY, Jesusita Payan, [facility] [address], [place] [address]- [phone] Additional Instructions: sched stone procedure on R Patient Education Laser Therapy for Kidney Stones, Care After Laser Therapy for Kidney Stones Vijaya Vallecillo, personally scribed for Dr. Small on 04/01/2024 14:26:28. . Documentation recorded by the Vijaya oconnell, accurately reflects the services(s) I performed and decisions made by me. Authenticated by Dr. Small on 04/01/2024 14:29:01. Proble (more content not included)... Normal [facility] Comment on above: Result Comment: Elec tronically Signed By: STACI HALEY, Jesusita Payan\.br\Date and Time Signed: 04/01/24 14:29 EDT\.br\Electronically Co-Signed By: Vijaya Hastings\.br\Date and Time Co-Signed: 04/01/24 14:27 EDT XR KUBon 04-01-2024 XR KUB [facility] [place] [address] [place] [address] XRay Report Signed Patient: Jessenia Pyle MR#: [id number] 209 : 1945 Acct:[id number] Age/Sex: 78 / M ADM Date: 04/01/24 Loc: XD Room: Type: [facility] Attending Dr: Jesusita Small MD Copies to: Jesusita Small MD Ordering Provider: Jesusita Small MD Date of Service: 04/01/24 XR/XR KUB: N20.0 KUB COMPARISON: 04/24/2022 CT of abdomen 02/20/2024 demonstrating numerous right renal calculi. HISTORY: Abdominal pain. History of kidney stones. Stone in the distal right ureter. THORAX: Lung bases unremarkable. FREE AIR: Supine position limits assessment BOWEL: No gaseous intestinal distention. STOOL: No significant stool RENAL STONES: Grouping of S3 stones identified in the distal ureter measuring up to 5 mm. VASCULAR CALCIFICATIONS: Present SOFT TISSUE: Unremarkable BONES: Unremarkable POSTSURGICAL CHANGES: None XR/XR KUB IMPRESSION: Grouping of 3 stones in the region of the distal right ureter measuring up to 5 mm. Prior stones in the right kidney seen with examination 02/20/2024 no longer visualized. Impression dictated by: Chris Stevenson M.D.04/01/2024 3:10 PM Dictation Location: [place] [address] Transcribed By: [facility] 04/01/24 1510 Dictated By: Chris Stevenson DO 04/01/24 1505 Signed By: 04/01/24 1510 Normal [facility] BMPon 03-26-2024 Anion gap [Moles/Vol] 14 mmol/L Normal 6-16 [facility] Comment on above: Performed By: #### 2 [id number] #### [facility] [address] [place] [address] Calcium [Mass/Vol] 9.3 mg/dL Normal 8.9-11.1 [facility] Comment on above: Performed By: #### 2 [id number] #### [facility] [address] [place] [address] Chloride [Moles/Vol] 103 mmol/L Normal 101-111 [facility] Comment on above: Performed By: #### 2 [id number] #### [facility] [address] [place] [address] CO2 [Moles/Vol] 25 mmol/L Normal 21-31 [facility] Comment on above: Performed By: #### 2 [id number] #### [facility] [address] [place] [address] Creatinine [Mass/Vol] 1.2 mg/dL Normal 0.5-1.3 [facility] Comment on above: Performed By: #### 2 [id number] #### [facility] [address] [place] [address] Glucose [Mass/Vol] 164 mg/dL Normal 55-199 [facility] Comment on above: Performed By: #### 2 [id number] #### [facility] [address] [place] [address] Potassium [Moles/Vol] 3.8 mmol/L Normal 3.5-5.3 [facility] Comment on above: Performed By: #### 2 [id number] #### [facility] [address] [place] [address] Sodium [Moles/Vol] 138 mmol/L Normal 135-145 [facility] Comment on above: Performed By: #### 2 [id number] #### [facility] [address] [place] [address] Urea nitrogen [Mass/Vol] 17 mg/dL Normal 5-21 [facility] Comment on above: Performed By: #### 2 740458 #### [facility] [address] [place] [address] Urea nitrogen/Creatinine [Mass ratio] 14 No Units Normal 10-20 [facility] Comment on above: Performed By: #### 2 701554 #### [facility] [address] [place] [address] CBC w/ Auto Diffon 4 Basophils/100 WBC (Bld) 0.4 % Normal 0.0-2.0 [facility] Comment on above: Performed By: #### 2 [id number] #### [facility] [address] [place] [address] Basophils/Leukocytes Auto (Bld) [Pure # fraction] 0.0 E9/L Normal 0.0-0.2 [facility] Comment on above: Performed By: #### 2 121002 #### [facility] [address] [place] [address] Eosinophils (Bld) [#/Vol] 0.0 E9/L Normal 0.0-0.5 [facility] Comment on above: Performed By: #### 2 962199 #### [facility] [address] [place] [address] Eosinophils/100 WBC (Bld) 0.3 % Normal 0.0-8.0 [facility] Comment on above: Performed By: #### 2 039457 #### [facility] [address] [place] [address] Erythrocyte distribution width (RBC) [Ratio] 15.1 % High 10.9-14.2 [facility] Comment on above: Performed By: #### 2 757347 #### [facility] [address] [place] [address] Hematocrit (Bld) [Volume fraction] 45.7 % Normal 37.7-49.0 [facility] Comment on above: Performed By: #### 2 171996 #### [facility] [address] [place] [address] Hemoglobin (Bld) [Mass/Vol] 16.4 g/dL Normal 13.5-17.5 [facility] Comment on above: Performed By: #### 2 [id number] #### [facility] [address] [place] [address] Lymphocytes (Bld) [#/Vol] 0.9 E9/L Low 1.0-4.0 [facility] Comment on above: Performed By: #### 2 847576 #### [facility] [address] [place] [address] Lymphocytes/100 WBC (Bld) 9.5 % Low 14.0-50.0 [facility] Comment on above: Performed By: #### 2 826709 #### [facility] [address] [place] [address] MCH (RBC) [Entitic mass] 32.0 pg Normal 27.0-34.0 [facility] Comment on above: Performed By: #### 2 206563 #### [facility] [address] [place] [address] MCHC (RBC) [Mass/Vol] 35.9 g/dL Normal 31.4-36.0 [facility] Comment on above: Performed By: #### 2 473591 #### [facility] [address] [place] [address] MCV (RBC) [Entitic vol] 88.9 fL Normal 80.0-100.0 [facility] Comment on above: Performed By: #### 2 459209 #### [facility] [address] [place] [address] Monocytes (Bld) [#/Vol] 0.9 E9/L Normal 0.2-1.0 [facility] Comment on above: Performed By: #### 2 509852 #### [facility] [address] [place] [address] Neutrophils (Bld) [#/Vol] 7.9 E9/L High 2.0-7.5 [facility] Comment on above: Performed By: #### 2 914702 #### [facility] [address] [place] [address] Neutrophils/100 WBC (Bld) 80.8 % High 36.0-75.0 [facility] Comment on above: Performed By: #### 2 [id number] #### [facility] [address] [place] [address] Platelet 149.0 E9/L Low 150.0-500. 0 [facility] Comment on above: Performed By: #### 2 211643 #### [facility] [address] [place] [address] Platelet mean volume (Bld) [Entitic vol] 9.9 fL Normal 6.4-10.8 [facility] Comment on above: Performed By: #### 2 267511 #### [facility] [address] [place] [address] RBC (Bld) [#/Vol] 5.1 E12/L Normal 4.3-5.9 [facility] Comment on above: Performed By: #### 2 602120 #### [facility] [address] [place] [address] WBC corrected for nucl RBC Auto (Bld) [#/Vol] 9.7 E9/L Normal 4.0-11.0 [facility] Comment on above: Performed By: #### 2 [id number] #### [facility] [address] [place] [address] CHEMISTRYOrdered By: SYSTEM SYSTEM on 03-26-2024 Anion gap [Moles/Vol] 14 mmol/L Normal 6 - 16 mEq/L [facility] Calcium [Mass/Vol] 9.3 mg/dL Normal 8.9 - 11. 1 mg/dL [facility] Chloride [Moles/Vol] 103 mmol/L Normal 101 - 1 11 mmol/L [facility] CO2 [Moles/Vol] 25 mmol/L Normal 21 - 31 mmol/L [facility] Creatinine [Mass/Vol] 1.2 mg/dL Normal 0.5 - 1.3 mg/dL [facility] eGFR 62 mL/min/1.73 m2 Normal >=59mL/min /1.73 m2 [facility] Glucose [Mass/Vol] 164 mg/dL Normal 55 - 199 mg/dL [facility] Potassium [Moles/Vol] 3.8 mmol/L Normal 3.5 - 5.3 mmol/L [facility] Sodium [Moles/Vol] 138 mmol/L Normal 135 - 145 mmol/L [facility] Urea nitrogen [Mass/Vol] 17 mg/dL Normal 5 - 21 mg/dL [facility] Urea nitrogen/Creatinine [Mass ratio] 14 mg/mg Normal 10 - [address] Abdomen/Pelvis w/o Kevin nunez 03-26-2024 CT Abdomen/Pelvis w/o Contrast Exam Date/Time: 03/26/2024 17:36 EDT Reason for Exam: Pain Report IMPRESSION: Mildly obstructing 5 mm calculus right distal ureter. Additional nonobstructing right renal calculi. Diffuse hepatic steatosis with areas of focal fatty sparing. EXAMINATION: CT Abdomen/Pelvis w/o Contrast HISTORY: Right flank pain radiating to the right groin. History of kidney stones. History of TURP, vasectomy, and lithotripsy. TECHNIQUE: Non-IV contrast imaging of the abdomen and pelvis was performed using standard technique, scanning from just above the dome of the diaphragm to the symphysis pubis. Unenhanced imaging is limited for the evaluation of some intra-abdominal and pelvic pathology. Unless otherwise stated, incidental findings in this report do not require further routine follow-up imaging. All CT scans at this facility use dose modulation, iterative reconstruction, and/or weight based dosing when appropriate to reduce radiation dose to as low as reasonably achievable. COMPARISON: None. RESULT: Abdomen / Pelvis: Liver: Diffuse hepatic steatosis with areas of focal fatty sparing. Multiple calcified granulomas. Subcentimeter low-attenuation lesion of the right hepatic dome, too small to characterize but likely benign. Biliary: Gallbladder unremarkable. Pancreas: Unremarkable. Spleen: Calcified granulomas, otherwise unremarkable. Adrenals: Unremarkable. Kidneys and urinary tract: 5 mm calculus in the right distal ureter, located approximately 4.0 cm upstream of the right ureterovesicular junction. Associated upstream mild right hydroureteronephrosis with right perinephric stranding. Multiple Report additional right-sided renal calculi with the largest in the right lower pole measuring around 6 mm. Areas of parenchymal thinning of the right kidney superiorly. No distinct left renal calculi. Probable bilateral parapelvic cysts. Additional low-attenuation cysts bilaterally. No suspicious renal lesions. Bladder decompressed. GI Tract: No bowel dilation. Normal appendix. Diverticulosis, without evidence for acute diverticulitis. Lymph Nodes: No lymphadenopathy. Mesentery/peritoneum/retrop eritoneum: Right perinephric stranding. No loculated collection. Vasculature: Moderate arterial atherosclerotic disease without aneurysm. Pelvis: No significant pelvic free fluid. Small bilateral fat-containing inguinal hernias. Bones/Soft Tissues: No acute osseous findings. Degenerative changes. Lower thorax: Bibasilar atelectasis/scarring. Diffuse coronary calcifications. Aortic root calcifications. Ordering Provider: Stephanie Angulo FINAL REPORT Dictated: 03/26/2024 5:46 pm Simeon Melendez MD Signed (Electronic Signature): 03/26/2024 5:46 pm Signed by: Simeon Melendez MD Transcribed by: VASQUEZ Technologist: OBINNA Technical Comments Rectal Contrast Given? No Oral contrast amount in ml's: 0 Normal [facility] ED Clinical Summaryon 2023 ED Clinical Summary ED Clinical Summary [place] [id number] ED Clinical Summary Person Information Name: JESSENIA PYLE/[facility] Age: 78 Years : 1945 Sex: Male Language: Hungarian PCP: CHRIS PIERRE DO Marital Status: Visit Id: Visit Reason: Vomiting; Nausea; Flank pain; VOMITING, ABD PAIN Speciality: Acuity: 3 Enc Type: Emergency Med Service: Emergency Arrival: 03/26/2024 16:04:00 Discharge: 03/26/2024 19:13:09 LOS: 000 03:09 Checkin: 03/26/2024 16:04:00 Checkout: 03/26/2024 19:13:09 Dispo Type: Home (Routine DC) EVENTS: Event Name Event Status Request Date/Time Start Date/Time Complete Date/Time Arrive Complete 03/26/2024 16:04:00 03/26/2024 16:04:00 03/26/2024 16:04:00 Document Home Meds Request 03/26/2024 16:04:00 Triage Complete 03/26/2024 16:04:00 03/26/2024 16:17:48 03/26/2024 16:17:48 Bed Assign Complete 03/26/2024 16:07:01 03/26/2024 16:07:01 03/26/2024 16:07:01 Dr Exam Complete 03/26/2024 16:07:01 03/26/2024 16:08:00 03/26/2024 16:08:00 RN Exam Complete 03/26/2024 16:07:02 03/26/2024 18:45:07 03/26/2024 18:45:07 Registration Complete 03/26/2024 16:08:00 03/26/2024 16:08:17 03/26/2024 16:08:17 Reg Complete Request 03/26/2024 16:08:17 Reg Bed Request Complete 03/26/2024 16:08:17 03/26/2024 16:08:17 03/26/2024 16:08:17 Pending Labs Complete 03/26/2024 16:26:21 03/26/2024 16:43:21 Pending Labs Complete 03/26/2024 16:48:36 03/26/2024 17:30:28 Lab Complete 03/26/2024 16:48:36 03/26/2024 17:30:28 Meds Admin Complete 03/26/2024 16:48:36 03/26/2024 17:04:02 CT Complete 03/26/2024 16:48:36 03/26/2024 17:36:16 03/26/2024 17:36:43 Pending Labs Complete 03/26/2024 16:59:59 03/26/2024 16:59:59 03/26/2024 17:30:28 Lab Complete 03/26/2024 16:59:59 03/26/2024 16:59:59 03/26/2024 17:30:28 Meds Admin Complete 03/26/2024 18:11:20 03/26/2024 18:42:22 Discharge Complete 03/26/2024 18:13:19 03/26/2024 19:13:14 03/26/2024 19:13:14 Meds Admin Complete 03/26/2024 18:29:30 03/26/2024 18:42:22 Pending Labs Complete 03/26/2024 18:54:03 03/26/2024 18:54:03 03/26/2024 18:54:04 Transfer Complete 03/26/2024 19:13:14 03/26/2024 19:13:14 03/26/2024 19:13:14 ADDRESS: [address] [place] [phone] PHYS DOC NOTES: MEDICAL INFORMATION: Prescriptions Given: New Medications [facility]/pharmacy #[id number], [address] [place], [place] [id number], [phone] ondansetron (Zofran ODT 4 mg Tab-Dis) 1 Tablets By Mouth every 8 hours. Refills: 0. oxycodone (oxyCODONE 5 mg Tab) 1 Tablets By Mouth every 6 hours as needed for pain for 5 Days. Refills: 0. Medications to Continue with No Changes Other Medications albuterol amlodipine (amLODIPine 5 mg Tab) 1 Tablets By Mouth every day. aspirin (aspirin 81 mg oral tablet) 1 Tablets By Mouth every day. doxazosin (doxazosin 2 mg Tab) ezetimibe (ezetimibe 10 mg Tab) By Mouth every day. fluticasone (fluticasone propionate) Inhalation. isosorbide mononitrate (isosorbide mononitrate 30 mg ER Tab) 1 Tablets By Mouth once a day (in the morning). heart. multivitamin potassium citrate (potassium citrate 15 mEq oral tablet, extended release) 2 Tablets By Mouth 2 times a day. Refills: 3. rosuvastatin (Crestor 20 mg Tab) 1 Tablets By Mouth every day. tamsulosin (tamsulosin 0.4 mg Cap) 1 Capsules By Mouth every day. Refills: 0. tamsulosin (tamsulosin 0.4 mg Cap) 1 Capsules By Mouth every day. Refills: 3. PATIENT EDUCATION INFORMATION: Instructions: Dietary Guidelines to Help Prevent Kidney Stones; Kidney Stones Follow up: With: Address: When: Jesusita SMALL [address] [place] [address] [place] [address] Business (1) [address] [place], [place] [phone] [employer] (1) In 3 days 03/29/2024 DIAGNOSIS: 1:Kidney stone on right side Normal [facility] ED Patient Summaryon 024 ED Patient Summary ED Patient Summary [address] [address] Patient Discharge Instructions Person Information Name: JESSENIA PYLE Age: 78 Years Arrival Date: 03/26/2024 16:04:00 Discharge Diagnosis: 1:Kidney stone on right side Primary Care Physician: CHRIS PIERRE DO Provider Information Primary Provider: Advanced Enrollment Representative:Stephanie Angulo PA-C The exam and treatment you received in the Emergency Department were for an urgent problem and are not intended as complete care. It is important that you follow up with a doctor, nurse practitioner, or physician?s medical receptionist medical assistant for ongoing care. If your symptoms become worse or you do not improve as expected and you are unable to reach your usual health care provider, you should return to the Emergency Department. We are available 24 hours a day. JESSENIA PYLE has been given the following list of patient education materials, prescriptions and follow-up instructions: Follow-up Instructions: With: Address: When: Jesusita SMALL [address] [place] [address] [place] [address] [facility] (1) [address] [place], [place] [id number] [facility] (1) In 3 days 03/29/2024 In the event that this physician does not participate in your insurance network, please consult with your insurance company to find a nearby participating provider. Patient Education Materials: Dietary Guidelines to Help Prevent Kidney Stones; Kidney Stones A MESSAGE TO ALL PATIENTS REGARDING OPIOIDS PRESCRIPTION OPIOIDS: WHAT YOU NEED TO KNOW Prescription opioids can be used to help relieve [id number] pain and are often prescribed following a surgery or injury, or for certain health conditions. These medications can be an important part of the treatment but also come with serious risks. It is important to work with your healthcare provider to make sure you are getting the safest, most effective care. WHAT ARE THE RISKS AND SIDE EFFECTS OF OPIOID USE? Prescription opioids carry serious risks of addiction and overdose, especially with prolonged use. An opioid overdose, often marked by slowed breathing, can cause sudden . The use of prescription opioids can have a number of side effects as well, even when taken as directed: ? Tolerance?meaning you might need to take more of the medication for the same pain relief ? Physical dependence?meaning you have symptoms of withdrawal when a medication is stopped ? Increased sensitivity to pain ? Constipation ? Nausea, vomiting, and dry mouth ? Sleepiness and dizziness ? Confusion ? Depression ? Low levels of testosterone that can result in lower sex drive, energy, and strength ? Itching and sweating RISKS ARE GREATER WITH: ? History of drug misuse, substance use disorder, or overdose ? Mental health conditions (such as depression or anxiety) ? Sleep apnea ? Older age (65 years and older) ? Avoid alcohol while taking prescription opioids. Also, unless specifically advised by your health care provider, medications to avoid include: ? Benzodiazepines (such as Xanax or Valium) ? Muscle relaxants (such as Soma or Flexeril) ? Hypnotics (such as Ambien or Lunesta) ? Other prescription opioids KNOW YOUR OPTIONS Talk to your health care provider about ways to manage your pain that don?t involve prescription opioids. Some of these options may actually work better and have fewer risks and side effects. Options may include: ? Pain relievers such as acetaminophen, ibuprofen, and naproxen ? Some medication that are also used for depression or seizures ? Physical therapy and exercise ? Cognitive behavioral therapy, a psychological, goal-directed approach, in which patients learn how to modify physical, behavioral, and emotional triggers of pain and stress. IF YOU ARE PRESCRIBED OPIOIDS FOR PAIN: ? Never take opioids in greater amounts or more often than prescribed. ? Follow up with your primary health care provider. o Work together to create a plan on how to manage your pain. o Talk about ways to help manage your pain that don?t involve prescription opioids. o Talk about any and all concerns and side effects. ? Help prevent misuse and abuse o Never sell or share prescription opioids. o Never use another person?s prescription opioids. ? Store prescription opioids in a secure place and out of reach of others (this may include visitors, children, friends, and family). ? Safely dispose of unused prescription opioids: Find your community drug take-back program or your pharmacy mail-back program, or flush them down the toilet, following guidance from the Food and Drug Administration (www.fda.gov/Drugs/Resource sForYou). ? Visit www.cdc.gov/drugoverdose to learn about the risks of opioids abuse and overdose. ? If you believe you may be struggling wi (more content not included)... Normal [facility] HEMATOLOGYOrdered By: SYSTEM SYSTEM on 03-26-2024 Basophils/100 WBC (Bld) 0.4 % Normal 0.0 - 2.0 % Remisol Heme Basophils/Leukocytes Auto (Bld) [Pure # fraction] 0.0 E9/L Normal 0.0 - 0.2 E9/L [facility] Eosinophils (Bld) [#/Vol] 0.0 E9/L Normal 0.0 - 0.5 E9/L [facility] Eosinophils/100 WBC (Bld) 0.3 % Normal 0.0 - 8.0 % [facility] Erythrocyte distribution width (RBC) [Ratio] 15.1 % High 10.9 - 14.2 % [facility] Hematocrit (Bld) [Volume fraction] 45.7 % Normal 37.7 - 49.0 % [facility] Hemoglobin (Bld) [Mass/Vol] 16.4 g/dL Normal 13.5 - 17.5 gm/dL [facility] Lymphocytes (Bld) [#/Vol] 0.9 E9/L Low 1.0 - 4.0 E9/L [facility] Lymphocytes/100 WBC (Bld) 9.5 % Low 14.0 - 50.0 % [facility] MCH (RBC) [Entitic mass] 32.0 pg Normal 27.0 - 34.0 pg [facility] MCHC (RBC) [Mass/Vol] 35.9 g/dL Normal 31.4 - 36.0 gm/dL [facility] MCV (RBC) [Entitic vol] 88.9 fL Normal 80.0 - 100.0 fL [facility] Monocytes (Bld) [#/Vol] 0.9 E9/L Normal 0.2 - 1.0 E9/L [facility] Monocytes/100 WBC (Bld) 9.0 % Normal 4.0 - 14.0 % [facility] Neutrophils (Bld) [#/Vol] 7.9 E9/L High 2.0 - 7.5 E9/L [facility] Neutrophils/100 WBC (Bld) 80.8 % High 36.0 - 75.0 % [facility] Platelet 149.0 E9/L Low 150.0 - 500.0 E9/L [facility] Platelet mean volume (Bld) [Entitic vol] 9.9 fL Normal 6.4 - 10.8 fL [facility] RBC (Bld) [#/Vol] 5.1 E12/L Normal 4.3 - 5.9 E12/L [facility] WBC corrected for nucl RBC Auto (Bld) [#/Vol] 9.7 E9/L Normal 4.0 - 11.0 E9/L [facility] UA with Cult Rflxon 03-26-20 24 Bilirubin Ql (U) Negative Normal Negative [facility] Comment on above: Performed By: #### 4 [id number] #### [facility] [address] [place] [address] Clarity (U) Turbid Abnormal Clear [facility] Comment on above: Performed By: #### 4 [id number] #### [facility] [address] [place] [address] Color (U) Light-Yellow Normal Yellow [facility] Comment on above: Result Comment: Micr oscopic readings are only performed on those samples that meet specific criteria set forth by [facility]. Performed By: #### 4 [id number] #### [facility] [address] [place] [address] Glucose Ql (U) 1+ mg/dL Abnormal Negative [facility] Comment on above: Performed By: #### 4 [id number] #### [facility] [address] [place] [address] Hemoglobin Auto test strip (U) [Mass/Vol] Trace Abnormal Negative [facility] Comment on above: Performed By: #### 4 [id number] #### [facility] [address] [place] [address] Ketones Auto test strip Ql (U) Negative Normal Negative [facility] Comment on above: Performed By: #### 4 [id number] #### [facility] [address] [place] [address] Leukocyte esterase Auto test strip Ql (U) Negative Normal Negative [facility] Comment on above: Performed By: #### 4 [id number] #### [facility] [address] [place] [address] Mucus Auto Ql (U) Negative Normal Negative [facility] Comment on above: Performed By: #### 4 [id number] #### [facility] [address] [place] [address] Nitrite Auto test strip Ql (U) Negative Normal Negative [facility] Comment on above: Performed By: #### 4 [id number] #### [facility] [address] [place] [address] pH (U) 7.0 [pH] Invalid Interpretation Code 5.0-9.0 [facility] Comment on above: Performed By: #### 4 [id number] #### [facility] [address] [place] [address] Protein Ql (U) Trace Abnormal Negative [facility] Comment on above: Performed By: #### 4 [id number] #### [facility] [address] [place] [address] RBC Ql (U) 21-30 Abnormal 0-3 [facility] Comment on above: Performed By: #### 4 [id number] #### [facility] [address] [place] [address] Specific gravity (U) [Rel density] 1.018 Invalid Interpretation Code 1.005-1.03 0 [facility] Comment on above: Performed By: #### 4 [id number] #### [facility] [address] [place] [address] Urobilinogen (U) [Mass/Vol] Negative Normal Negative [facility] Comment on above: Performed By: #### 4 [id number] #### [facility] [address] [place] [address] WBC Auto (Urine sed) [#/Area] 0-5 Normal 0-5 [facility] Comment on above: Performed By: #### 4 [id number] #### [facility] [address] [place] [address] Type of Urine collection method Clean Catch Normal [facility] Comment on above: Performed By: #### 4 [id number] #### [facility] [address] [place] [address] URINALYSISOrdered By: SYSTEM SYSTEM on 03-26-2024 Bilirubin Ql (U) Negative Normal Negativemg /dL [facility] UA Auto SS Clarity (U) Turbid *ABN* (03/26/24 4:28 PM) Invalid Interpretation Code Clear [facility] UA Auto SS Color (U) Light-Yellow 1 (03/26/24 4:28 PM) Normal Yellow [facility] UA Auto SS Comment on above: Interpretive Data: M icroscopic readings are only performed on those samples that meet specific criteria set forth by [facility]. Glucose Ql (U) 1+ mg/dL Invalid Interpretation Code Negativemg /dL [facility] UA Auto SS Hemoglobin Auto test strip (U) [Mass/Vol] Trace mg/dL Invalid Interpretation Code Negativemg /dL [facility] UA Auto SS Ketones Auto test strip Ql (U) Negative Normal Negativemg /dL [facility] UA Auto SS Leukocyte esterase Auto test strip Ql (U) Negative Normal NegativeLe u/uL [facility] UA Auto SS Mucus Auto Ql (U) Negative Normal Negativegr aded/LPF [facility] UA Auto SS Nitrite Auto test strip Ql (U) Negative Normal Negativemg /dL [facility] UA Auto SS pH (U) 7.0 *NA* (03/26/24 4:28 PM) Invalid Interpretation Code 5.0 - 9.0 [facility] UA Auto SS Protein Ql (U) Trace mg/dL Invalid Interpretation Code Negativemg /dL [facility] UA Auto SS RBC Ql (U) 21-30 graded/HPF Invalid Interpretation Code 0-3graded/ HPF [facility] UA Auto SS Specific gravity (U) [Rel density] 1.018 *NA* (03/26/24 4:28 PM) Invalid Interpretation Code 1.005 - 1.030 [facility] UA Auto SS Urobilinogen (U) [Mass/Vol] Negative Normal Negativemg /dL [facility] UA Auto SS WBC Auto (Urine sed) [#/Area] 0-5 graded/HPF Normal 0-5graded/ HPF [facility] UA Auto SS URINALYSISOrdered By: Koffi Westbrook on 03-26-2024 UA Spec Desc Clean Catch (03/26/24 4:28 PM) Normal [facility] UA Auto SS eGFRon 03-26-2024 eGFR 62 mL/min/1.73 m2 Normal >=59 [facility] Comment on above: Order Comment: Order added by Discern Expert. Performed By: #### 1 [id number] #### [facility] [address] [place] [address] Alanine aminotransferase [En zymatic activity/volume] in Serum or PlasmaOrdered By: Caryn Dixon on 02-20-2024 ALT [Catalytic activity/Vol] 41 U/L Normal 7-52 [facility] Comment on above: Performed By: #### P P, CBC, BUN, CREAT, LYTES, LIPID #### [facility] [address] [place] [id number] [place] Albumin [Mass/volume] in Ser um or Plasma by Bromocresol green (BCG) dye binding methoOrdered By: Caryn Dixon on 02-20-2024 Albumin BCG dye [Mass/Vol] 4.6 g/dL 3.5-5.7 [facility] Alkaline phosphatase [Enzyma tic activity/volume] in Serum or PlasmaOrdered By: Caryn Dixon on 02-20-2024 ALP [Catalytic activity/Vol] 64 U/L Normal 34-104 [facility] Comment on above: Performed By: #### P P, CBC, BUN, CREAT, LYTES, LIPID #### [facility] [address] [place] [id number] [place] Aspartate aminotransferase [ Enzymatic activity/volume] in Serum or PlasmaOrdered By: Caryn Dixon on 02-20-2024 AST [Catalytic activity/Vol] 34 U/L Normal 13-39 [facility] Comment on above: Performed By: #### P P, CBC, BUN, CREAT, LYTES, LIPID #### [facility] [address] [place] [id number] [place] Automated basophil %Ordered By: Caryn Dixon on 02-20-2024 Basophils/100 WBC (Bld) 0.2 % Normal . [facility] Comment on above: Performed By: #### P P, CBC, BUN, CREAT, LYTES, LIPID #### [address] Automated basophil countOrde red By: Caryn Dixon on 02-20-2024 Basophils (Bld) [#/Vol] 0.0 10*3/uL Normal 0.0-0.2 [facility] Comment on above: Result Comment: PERF ORMED BY: [place] [address] PATHOLOGIST RESOURCE DEVELOPMENT DIRECTOR GWEN CRZU M.D. Performed By: #### P P, CBC, BUN, CREAT, LYTES, LIPID #### [address] Automated blood monocyte cou ntOrdered By: Caryn Dixon on 02-20-2024 Monocytes (Bld) [#/Vol] 0.7 10*3/uL Normal 0.0-0.8 [facility] Comment on above: Performed By: #### P P, CBC, BUN, CREAT, LYTES, LIPID #### [address] Automated eosinophil %Ordere d By: Caryn Dixon on 02-20-2024 Eosinophils/100 WBC (Bld) 0.0 % Normal . [facility] Comment on above: Performed By: #### P P, CBC, BUN, CREAT, LYTES, LIPID #### [address] Automated eosinophil countOr dered By: Caryn Dixon on 02-20-2024 Eosinophils (Bld) [#/Vol] 0.0 10*3/uL Normal 0.0-0.45 [facility] Comment on above: Performed By: #### P P, CBC, BUN, CREAT, LYTES, LIPID #### [address] Automated monocyte %Ordered By: Caryn Dixon on 02-20-2024 Monocytes/100 WBC (Bld) 6.0 % Normal . [facility] Comment on above: Performed By: #### P P, CBC, BUN, CREAT, LYTES, LIPID #### [facility] [address] Automated neutrophil %Ordere d By: Caryn Dixon on 02-20-2024 Neutrophils/100 WBC (Bld) 86.7 % Normal . [facility] Comment on above: Performed By: #### P P, CBC, BUN, CREAT, LYTES, LIPID #### [facility] [address] Bacteria [Presence] in Urine by AutomatedOrdered By: Caryn Dixon on 02-20-2024 Bacteria Auto Ql (U) Rare [HPF] None Seen [facility] Bilirubin Test strip Ql (U)O rdered By: Caryn Dixon on 02-20-2024 Bilirubin Ql (U) Negative Negative [facility] Bilirubin.total [Mass/volume ] in Serum or PlasmaOrdered By: Caryn Dixon on 02-20-2024 Bilirubin [Mass/Vol] 1.2 mg/dL High 0.3-1.0 [facility] Comment on above: Performed By: #### P P, CBC, BUN, CREAT, LYTES, LIPID #### [facility] [address] [place] [address] CT abdomen pelvis wo conon 0 02-20-2024 CT abdomen pelvis wo con [facility] [place] [address] CT Scan Report Signed Patient: Jesseina Pyle MR#: [id number] 209 : 1945 Acct:[id number] Age/Sex: 78 / M ADM Date: 02/20/24 Loc: ER Room: Type: PRE ER Attending Dr: Copies to: Caryn Dixon APRN TEMP, PROVIDER Ordering Provider: Caryn Dixon APRN Date of Service: 02/20/24 CT/CT abdomen pelvis wo con: abdominal pain CT ABDOMEN AND PELVIS WITHOUT CONTRAST CLINICAL DATA: Right flank pain with nausea and vomiting. History of kidney stones. COMPARISON: 08/25/2017 Spiral images were obtained through the abdomen and pelvis without contrast. This CT exam was performed using one or more following dose reduction techniques: Automated exposure control, adjustment of the mA and/or kV according to patient size, or use of iterative reconstruction technique. Limited cuts through the lung bases show coronary artery disease. There are left hilar calcified granulomas. Minor atelectasis and/or scarring is seen. Evaluation of the intra-abdominal organs is slightly limited by the absence of contrast. Fatty infiltration of the liver is visualized. There are calcified hepatic and splenic granulomas. No calcified gallstones are seen. The common duct remains borderline in caliber however no stones are noted. No acute pancreatic findings are present. There is continued minor nodular adrenal gland thickening. There is mild perinephric fibrofatty stranding. There is renal cortical scarring on the left. There are multiple renal cysts including several which are peripelvic. No right renal stones are present. There are several left renal calculi, predominantly at the lower pole measuring up to 5 - 6 mm in size. No hydronephrosis is identified. There is no ureteral dilatation though there is periureteral stranding on the right. No ureteral stones are seen. There is atherosclerotic plaque involving the aorta, iliac and some of the visceral arteries. There are similar abdominal lymph nodes including some with associated calcification. There is no ascites. There is fluid within the stomach. There are normal caliber small bowel loops. There is mild right-sided colonic stool. The descending colon is not as well distended. There is some left- sided colonic diverticula. A tiny umbilical hernia is present containing fat. Mild degenerative changes are present at the spine. Images through the pelvis show no appendiceal inflammation. There is no dilated small bowel. The remainder of the colon is underdistended with segments of apparent wall thickening. There are additional colonic diverticula, without associated active inflammation. The prostate is borderline prominent. There is a small for millimeter calcification at the junction of the prostate and bladder toward the midline. It is uncertain if it is a stone at or near the proximal urethra. No other bladder intraluminal findings are seen. The wall is top normal in thickness for the degree of distention. There is no ascites. There are patulous inguinal rings containing fat. There is mild degenerative change at the SI joints. CT/CT abdomen pelvis wo con IMPRESSION: FATTY LIVER. MULTIPLE RENAL CYSTS LEFT RENAL CORTICAL SCARRING. RIGHT NEPHROLITHIASIS. NO HYDRONEPHROSIS THOUGH THERE IS RIGHT PERIURETERAL STRANDING. THERE IS A NEW CALCIFICATION AT THE CENTRAL POSTERIOR BLADDER AT OR NEAR THE PROXIMAL URETHRA THAT COULD BE A RECENTLY PASSED STONE. MILD DIVERTICULOSIS. NO OTHER ACUTE FINDINGS. Impression dictated by: Debbie Glover M.D.02/20/2024 2:24 PM Dictation Location: [place] [address] Transcribed By: [facility] 02/20/24 1424 Dictated By: Debbie Glover MD 02/20/24 1411 Signed By: 02/20/24 1424 Normal [facility] Calcium [Mass/volume] in Ser um or PlasmaOrdered By: Caryn Dixon on 02-20-2024 Calcium [Mass/Vol] 9.5 mg/dL Normal 8.6-10.3 [facility] Comment on above: Performed By: #### P P, CBC, BUN, CREAT, LYTES, LIPID #### [facility] [address] [place] [address] [place] Carbon dioxide, total [Moles /volume] in Serum or PlasmaOrdered By: Caryn Dixon on 02-20-2024 CO2 [Moles/Vol] 26.6 mmol/L Normal 21.0-31.0 [facility] Comment on above: Performed By: #### P P, CBC, BUN, CREAT, LYTES, LIPID #### [facility] [address] [place] [id number] [place] Chloride [Moles/volume] in S claudia or PlasmaOrdered By: Caryn Dixon on 02-20-2024 Chloride [Moles/Vol] 104 mmol/L Normal 98-107 [facility] Comment on above: Performed By: #### P P, CBC, BUN, CREAT, LYTES, LIPID #### [facility] [address] [place] [address] [place] Color of Urine by AutoOrdere d By: Caryn Dixon on 02-20-2024 Color (U) Yellow Normal Yellow [facility] Comment on above: Order Comment: Name Collection Type:: Clean-Voided Midstream Performed By: #### P P, CBC, BUN, CREAT, LYTES, LIPID #### [address] Complete Blood Count Auto Di ffon 02-20-2024 Mean Corpuscular HGB Conc 33.9 g/dL Normal 32.5-35.6 [facility] Comment on above: Performed By: #### P P, CBC, BUN, CREAT, LYTES, LIPID #### [address] Monocytes/100 WBC (Bld) 16.51 % Normal 0.00-20.00 [facility] Comment on above: Performed By: #### P P, CBC, BUN, CREAT, LYTES, LIPID #### [address] NRBC% 0.2 /100{WBC} Normal 0-0.5 [facility] Comment on above: Performed By: #### P P, CBC, BUN, CREAT, LYTES, LIPID #### [address] Comprehensive Metabolic Pane gabe 02-20-2024 Albumin [Mass/Vol] 4.6 g/dL Normal 3.5-5.7 [facility] Comment on above: Performed By: #### P P, CBC, BUN, CREAT, LYTES, LIPID #### [address] Creatinine Clr Calc Pharmacy 66.60 Normal [facility] Comment on above: Performed By: #### P P, CBC, BUN, CREAT, LYTES, LIPID #### [address] GFR/1.73 sq M.predicted MDRD (S/P/Bld) [Vol rate/Area] mL/min/{1.73_m2} Normal [facility] Comment on above: Performed By: #### P P, CBC, BUN, CREAT, LYTES, LIPID #### [address] Creatinine [Mass/volume] in Serum or PlasmaOrdered By: Caryn Dixon on 02-20-2024 Creatinine [Mass/Vol] 1.08 mg/dL Normal 0.70-1.30 [facility] Comment on above: Performed By: #### P P, CBC, BUN, CREAT, LYTES, LIPID #### [address] Dipstick and Microscopicon 0 02-20-2024 Bacteria,Urine Rare Normal None Seen [facility] Comment on above: Order Comment: Name Collection Type:: Clean-Voided Midstream Performed By: #### P P, CBC, BUN, CREAT, LYTES, LIPID #### [address] Bilirubin,Urine Negative Normal Negative [facility] Comment on above: Order Comment: Name Collection Type:: Clean-Voided Midstream Performed By: #### P P, CBC, BUN, CREAT, LYTES, LIPID #### [address] Glucose Ql (U) Normal Normal Normal [facility] Comment on above: Order Comment: Name Collection Type:: Clean-Voided Midstream Performed By: #### P P, CBC, BUN, CREAT, LYTES, LIPID #### [address] Hyaline Casts,Urine None Normal 0-8 [facility] Comment on above: Order Comment: Name Collection Type:: Clean-Voided Midstream Performed By: #### P P, CBC, BUN, CREAT, LYTES, LIPID #### [address] Mucus,Urine 1+ Critically abnormal [facility] Comment on above: Order Comment: Name Collection Type:: Clean-Voided Midstream Result Comment: PERF ORMED BY: [place] [address] PATHOLOGIST RESOURCE DEVELOPMENT DIRECTOR GWEN CRUZ M.D. Performed By: #### P P, CBC, BUN, CREAT, LYTES, LIPID #### [address] Nitrite,Urine Negative Normal Negative [facility] Comment on above: Order Comment: Name Collection Type:: Clean-Voided Midstream Performed By: #### P P, CBC, BUN, CREAT, LYTES, LIPID #### [address] Occult Blood,Urine 3+ High Negative [facility] Comment on above: Order Comment: Name Collection Type:: Clean-Voided Midstream Result Comment: PERF ORMED BY: [place] [address] PATHOLOGIST RESOURCE DEVELOPMENT DIRECTOR GWEN CRUZ M.D. Performed By: #### P P, CBC, BUN, CREAT, LYTES, LIPID #### [address] RBC,Urine Innumerable High 0-4 [facility] Comment on above: Order Comment: Name Collection Type:: Clean-Voided Midstream Performed By: #### P P, CBC, BUN, CREAT, LYTES, LIPID #### [address] Specificy [place]ade,Urine 1.019 Normal 1.001-1.03 0 [facility] Comment on above: Order Comment: Name Collection Type:: Clean-Voided Midstream Performed By: #### P P, CBC, BUN, CREAT, LYTES, LIPID #### [address] Squamous Epithelial Cell,Urine 1-2 Normal 0-2 [facility] Comment on above: Order Comment: Name Collection Type:: Clean-Voided Midstream Performed By: #### P P, CBC, BUN, CREAT, LYTES, LIPID #### [address] Urobilinogen,Urine Normal Normal Normal [facility] Comment on above: Order Comment: Name Collection Type:: Clean-Voided Midstream Performed By: #### P P, CBC, BUN, CREAT, LYTES, LIPID #### [address] WBC,Urine 5-9 High 0-4 [facility] Comment on above: Order Comment: Name Collection Type:: Clean-Voided Midstream Performed By: #### P P, CBC, BUN, CREAT, LYTES, LIPID #### [facility] [address] Epithelial cells.squamous [# /area] in Urine sediment by Automated countOrdered By: Caryn Dixon on 02-20-2024 Epithelial cells.squamous Auto (Urine sed) [#/Area] 1-2 [HPF] 0-2 [facility] Erythrocyte distribution wid th [Ratio] by Automated countOrdered By: Caryn Dixon on 02-20-2024 Erythrocyte distribution width (RBC) [Ratio] 14.8 % Normal 12.0-14.8 [facility] Comment on above: Performed By: #### P P, CBC, BUN, CREAT, LYTES, LIPID #### [facility] [address] [place] [address] Erythrocytes [#/area] in Uri ne sediment by Automated countOrdered By: Caryn Dixon on 02-20-2024 RBC Auto (Urine sed) [#/Area] Innumerable [HPF] High 0-4 [facility] Erythrocytes [#/volume] in B lood by Automated countOrdered By: Caryn Dixon on 02-20-2024 RBC (Bld) [#/Vol] 5.27 10*6/uL Normal 3.90-5.60 [facility] Comment on above: Performed By: #### P P, CBC, BUN, CREAT, LYTES, LIPID #### [facility] [address] [place] [address] Glucose [Mass/volume] in Ser um or PlasmaOrdered By: Caryn Dixon on 02-20-2024 Glucose [Mass/Vol] 100 mg/dL Normal 70-100 [facility] Comment on above: ADA recommended refe rence rangeRandom Glucose Reference Range is dependent on time and content of last meal. Glucose of more than 200 mg/dL in a nonstressed, ambulatory subject supports the diagnosis of Diabetes Mellitus. Result Comment: [place] Glucose Reference Range is dependent on time and content of last meal. Glucose of more than 200 mg/dL in a nonstressed, ambulatory subject supports the diagnosis of Diabetes Mellitus. ADA recommended reference range Performed By: #### P P, CBC, BUN, CREAT, LYTES, LIPID #### [address] Glucose [Mass/volume] in Uri ne by Test stripOrdered By: Caryn Dixon on 02-20-2024 Glucose Test strip (U) [Mass/Vol] Normal mg/dL Normal [facility] Hematocrit [Volume Fraction] of Blood by Automated countOrdered By: Caryn Dixon on 02-20-2024 Hematocrit (Bld) [Volume fraction] 46.9 % Normal 38.8-50.0 [facility] Comment on above: Performed By: #### P P, CBC, BUN, CREAT, LYTES, LIPID #### [address] Hemoglobin Test strip Ql (U) Ordered By: Caryn Dixon on 02-20-2024 Hemoglobin Ql (U) 3+ High Negative [facility] Hemoglobin [Mass/volume] in BloodOrdered By: Caryn Dixon on 02-20-2024 Hemoglobin (Bld) [Mass/Vol] 15.9 g/dL Normal 13.0-17.0 [facility] Comment on above: Performed By: #### P P, CBC, BUN, CREAT, LYTES, LIPID #### [place] [address] [place] Hyaline casts [#/area] in Ur ine sediment by Automated countOrdered By: Caryn Dixon on 02-20-2024 Hyaline casts Auto (Urine sed) [#/Area] None [LPF] 0-8 [facility] Ketones [Presence] in Urine by Test stripOrdered By: Caryn Dixon on 02-20-2024 Ketones Ql (U) Negative Normal Negative [facility] Comment on above: Order Comment: Name Collection Type:: Clean-Voided Midstream Performed By: #### P P, CBC, BUN, CREAT, LYTES, LIPID #### [address] [place] [address] [place] Leukocyte esterase [Presence ] in Urine by Test stripOrdered By: Caryn Dixon on 02-20-2024 Leukocyte esterase Test strip Ql (U) Negative Normal Negative [facility] Comment on above: Order Comment: Name Collection Type:: Clean-Voided Midstream Performed By: #### P P, CBC, BUN, CREAT, LYTES, LIPID #### [facility] [address] [place] [address] [place] Leukocytes [#/area] in Urine sediment by Automated countOrdered By: Caryn Dixon on 02-20-2024 WBC Auto (Urine sed) [#/Area] 5-9 [HPF] High 0-4 [facility] Leukocytes [#/volume] correc ulisses for nucleated erythrocytes in Blood by Automated counOrdered By: Caryn Dixon on 02-20-2024 WBC corrected for nucl RBC Auto (Bld) [#/Vol] 11.3 10*3/uL High 4.1-10.5 [facility] Leukocytes [#/volume] in Blo od by Automated countOrdered By: Caryn Dixon on 02-20-2024 WBC (Bld) [#/Vol] 11.3 10*3/uL High 4.1-10.5 [facility] Comment on above: Performed By: #### P P, CBC, BUN, CREAT, LYTES, LIPID #### [facility] [address] [place] [address] [place] Lipase [Enzymatic activity/v olume] in Serum or PlasmaOrdered By: Caryn Dixon on 02-20-2024 Lipase [Catalytic activity/Vol] 30.0 U/L Normal 11.0-82.0 [facility] Comment on above: Result Comment: PERF ORMED BY: [place] [address] PATHOLOGIST RESOURCE DEVELOPMENT DIRECTOR GWEN CRUZ M.D. Performed By: #### P P, CBC, BUN, CREAT, LYTES, LIPID #### [place] [address] [place] Lymphocytes [#/volume] in Bl ood by Automated countOrdered By: Caryn Dixon on 02-20-2024 Lymphocytes (Bld) [#/Vol] 0.8 10*3/uL Low 1.00-4.8 [facility] Comment on above: Performed By: #### P P, CBC, BUN, CREAT, LYTES, LIPID #### [facility] [address] Lymphocytes/100 leukocytes i n Blood by Automated countOrdered By: Caryn Dixon on 02-20-2024 Lymphocytes/100 WBC (Bld) 7.1 % Normal . [facility] Comment on above: Performed By: #### P P, CBC, BUN, CREAT, LYTES, LIPID #### [facility] [address] MCH [Entitic mass] by Automa ulisses countOrdered By: Caryn Dixon on 02-20-2024 MCH (RBC) [Entitic mass] 30.1 pg Normal 27.5-35.2 [facility] Comment on above: Performed By: #### P P, CBC, BUN, CREAT, LYTES, LIPID #### [facility] [address] [place] [address] MCHC Auto (RBC) [Mass/Vol]Or dered By: Caryn Dixon on 02-20-2024 MCHC (RBC) [Mass/Vol] 33.9 g/dL 32.5-35.6 [facility] MCV [Entitic volume] by Auto mated countOrdered By: Caryn Dixon on 02-20-2024 MCV (RBC) [Entitic vol] 89.0 fL Normal 83.5-101 [facility] Comment on above: Performed By: #### P P, CBC, BUN, CREAT, LYTES, LIPID #### [facility] [address] [place] [address] Monocyte distribution width [Entitic volume] in Blood by AutomatedOrdered By: Caryn Dixon on 02-20-2024 Monocyte distribution width Auto (Bld) [Entitic vol] 16.51 % 0.00-20.00 [facility] Mucus [Presence] in Urine by AutomatedOrdered By: Caryn Dixon on 02-20-2024 Mucus Auto Ql (U) 1+ [LPF] Abnormal [facility] Neutrophils [#/volume] in Bl ood by Automated countOrdered By: Caryn Dixon on 02-20-2024 Neutrophils (Bld) [#/Vol] 9.8 10*3/uL High 1.8-7.7 [facility] Comment on above: Performed By: #### P P, CBC, BUN, CREAT, LYTES, LIPID #### [facility] [address] Nitrite Test strip Ql (U)Ord ered By: Caryn Dixon on 02-20-2024 Nitrite Ql (U) Negative Negative [facility] No Panel InformationOrdered By: Caryn Dixon on 02-20-2024 Estimated GFR (CKD-EPI) > 60.0 mL/Min [facility] Creatinine Clearance (Chem 66.60 [facility] Nucleated erythrocytes [Pres ence] in Blood by Automated countOrdered By: Caryn Dixon on 02-20-2024 Nucleated RBC Auto Ql (Bld) 0.2 /100{WBC} 0-0.5 [facility] Platelet mean volume [Entiti c volume] in Blood by Automated countOrdered By: Caryn Dixon on 02-20-2024 Platelet mean volume (Bld) [Entitic vol] 10.3 fL High 6.6-10.1 [facility] Comment on above: Performed By: #### P P, CBC, BUN, CREAT, LYTES, LIPID #### [facility] [address] [place] [address] [place] Platelets [#/volume] in Bloo d by Automated countOrdered By: Caryn Dixon on 02-20-2024 Platelets (Bld) [#/Vol] 177 10*3/uL Normal 150-450 [facility] Comment on above: Performed By: #### P P, CBC, BUN, CREAT, LYTES, LIPID #### [facility] [address] [place] [address] [place] Potassium [Moles/volume] in Serum or PlasmaOrdered By: Caryn Dixon on 02-20-2024 Potassium [Moles/Vol] 4.3 mmol/L Normal 3.5-5.1 [facility] Comment on above: Performed By: #### P P, CBC, BUN, CREAT, LYTES, LIPID #### [address] Protein [Mass/volume] in Ser um or PlasmaOrdered By: Caryn Dixon on 02-20-2024 Protein [Mass/Vol] 7.0 g/dL Normal 6.4-8.9 [facility] Comment on above: Performed By: #### P P, CBC, BUN, CREAT, LYTES, LIPID #### [address] Protein [Mass/volume] in Uri ne by Test stripOrdered By: Caryn Dixon on 02-20-2024 Protein (U) [Mass/Vol] 20 mg/dL High Negative [facility] Comment on above: Order Comment: Name Collection Type:: Clean-Voided Midstream Performed By: #### P P, CBC, BUN, CREAT, LYTES, LIPID #### [address] Serum globulin measurement b y calculation (mass/volume)Ordered By: Caryn Dixon on 02-20-2024 Globulin (S) [Mass/Vol] 2.4 g/dL [facility] Comment on above: Performed By: #### P P, CBC, BUN, CREAT, LYTES, LIPID #### [address] Serum or plasma albumin/glob ulin mass ratioOrdered By: Caryn Dixon on 02-20-2024 Albumin/Globulin [Mass ratio] 1.9 {ratio} [facility] Comment on above: Performed By: #### P P, CBC, BUN, CREAT, LYTES, LIPID #### [address] Serum or plasma anion gap de terminationOrdered By: Caryn Dixon on 02-20-2024 Anion gap [Moles/Vol] 11.7 mmol/L Normal 6.0-15.0 [facility] Comment on above: Performed By: #### P P, CBC, BUN, CREAT, LYTES, LIPID #### [facility] [address] Sodium [Moles/volume] in Ser um or PlasmaOrdered By: Caryn Dixon on 02-20-2024 Sodium [Moles/Vol] 138 mmol/L Normal 136-145 [facility] Comment on above: Performed By: #### P P, CBC, BUN, CREAT, LYTES, LIPID #### [facility] [address] Specific gravity Test strip (U) [Rel density]Ordered By: Caryn Dixon on 02-20-2024 Specific gravity (U) [Rel density] 1.019 1.001-1.03 0 [facility] Urea nitrogen [Mass/volume] in Serum or PlasmaOrdered By: Caryn Dixon on 02-20-2024 Urea nitrogen [Mass/Vol] 19 mg/dL Normal 7-25 [facility] Comment on above: Performed By: #### P P, CBC, BUN, CREAT, LYTES, LIPID #### [facility] [address] [place] [address] Urine appearanceOrdered By: Caryn Dixon on 02-20-2024 Appearance (U) Clear Normal Clear [facility] Comment on above: Order Comment: Name Collection Type:: Clean-Voided Midstream Performed By: #### P P, CBC, BUN, CREAT, LYTES, LIPID #### [facility] [address] [place] [address] Urobilinogen Test strip (U) [Mass/Vol]Ordered By: Caryn Dixon on 02-20-2024 Urobilinogen (U) [Mass/Vol] Normal mg/dL Normal [facility] pH of Urine by Test stripOrd ered By: Caryn Dixon on 02-20-2024 pH (U) 6.5 [pH] Normal 5.0-9.0 [facility] Comment on above: Order Comment: Name Collection Type:: Clean-Voided Midstream Performed By: #### P P, CBC, BUN, CREAT, LYTES, LIPID #### [facility] [address] [place] [address] A1C with Estimated Average G rohitn 02-04-2024 Glucose [Mass/Vol] 114 mg/dL Normal [facility] Comment on above: Result Comment: PERF ORMED BY: [place] [address] PATHOLOGIST RESOURCE DEVELOPMENT DIRECTOR GWEN CRUZ M.D. Performed By: #### P P, CBC, BUN, CREAT, LYTES, LIPID #### [facility] [address] [place] [address] Alanine aminotransferase [En zymatic activity/volume] in Serum or PlasmaOrdered By: SPENCER ZARATE on 02-04-2024 ALT [Catalytic activity/Vol] 43 U/L Normal 7-52 [facility] Comment on above: Performed By: #### P P, CBC, BUN, CREAT, LYTES, LIPID #### [facility] [address] [place] [address] [place] Albumin [Mass/volume] in Ser um or Plasma by Bromocresol green (BCG) dye binding methoOrdered By: SPENCER ZARATE on 02-04-2024 Albumin BCG dye [Mass/Vol] 4.3 g/dL 3.5-5.7 [facility] Alkaline phosphatase [Enzyma tic activity/volume] in Serum or PlasmaOrdered By: SPENCER ZARATE on 02-04-2024 ALP [Catalytic activity/Vol] 62 U/L Normal 34-104 [facility] Comment on above: Performed By: #### P P, CBC, BUN, CREAT, LYTES, LIPID #### [facility] [address] [place] [address] [place] Aspartate aminotransferase [ Enzymatic activity/volume] in Serum or PlasmaOrdered By: SPENCER ZARATE on 02-04-2024 AST [Catalytic activity/Vol] 30 U/L Normal 13-39 [facility] Comment on above: Performed By: #### P P, CBC, BUN, CREAT, LYTES, LIPID #### [address] Automated basophil %Ordered By: SPENCER ZARATE on 02-04-2024 Basophils/100 WBC (Bld) 0.5 % Normal . [facility] Comment on above: Performed By: #### P P, CBC, BUN, CREAT, LYTES, LIPID #### [address] Automated basophil countOrde red By: SPENCER ZARATE on 02-04-2024 Basophils (Bld) [#/Vol] 0.0 10*3/uL Normal 0.0-0.2 [facility] Comment on above: Result Comment: PERF ORMED BY: [place] [address] PATHOLOGIST RESOURCE DEVELOPMENT DIRECTOR GWEN CRUZ M.D. Performed By: #### P P, CBC, BUN, CREAT, LYTES, LIPID #### [address] Automated blood monocyte cou ntOrdered By: SPENCER ZARATE on 02-04-2024 Monocytes (Bld) [#/Vol] 0.7 10*3/uL Normal 0.0-0.8 [facility] Comment on above: Performed By: #### P P, CBC, BUN, CREAT, LYTES, LIPID #### [address] Automated eosinophil %Ordere d By: SPENCER ZARATE on 02-04-2024 Eosinophils/100 WBC (Bld) 0.5 % Normal . [facility] Comment on above: Performed By: #### P P, CBC, BUN, CREAT, LYTES, LIPID #### [address] Automated eosinophil countOr dered By: SPENCER ZARATE on 02-04-2024 Eosinophils (Bld) [#/Vol] 0.0 10*3/uL Normal 0.0-0.45 [facility] Comment on above: Performed By: #### P P, CBC, BUN, CREAT, LYTES, LIPID #### [facility] [address] Automated monocyte %Ordered By: SPENCER ZARATE on 02-04-2024 Monocytes/100 WBC (Bld) 10.6 % Normal . [facility] Comment on above: Performed By: #### P P, CBC, BUN, CREAT, LYTES, LIPID #### [facility] [address] Automated neutrophil %Ordere d By: SPENCER ZARATE on 02-04-2024 Neutrophils/100 WBC (Bld) 73.5 % Normal . [facility] Comment on above: Performed By: #### P P, CBC, BUN, CREAT, LYTES, LIPID #### [address] Bilirubin.total [Mass/volume ] in Serum or PlasmaOrdered By: SPENCER ZARATE on 02-04-2024 Bilirubin [Mass/Vol] 1.3 mg/dL High 0.3-1.0 [facility] Comment on above: Samples from patient s who have taken Naproxen have shown spurious elevation in Total Bilirubin levels. A metabolite of Naproxen, O-desmethylnaproxen, has been shown to interfere with the Jendrassik-Grof method for measuring Total Bilirubin. Result Comment: Samp les from patients who have taken Naproxen have shown spurious elevation in Total Bilirubin levels. A metabolite of Naproxen, O-desmethylnaproxen, has been shown to interfere with the Jendrassik-Grof method for measuring Total Bilirubin. Performed By: #### P P, CBC, BUN, CREAT, LYTES, LIPID #### [address] Calcium [Mass/volume] in Ser um or PlasmaOrdered By: SPENCER ZARATE on 02-04-2024 Calcium [Mass/Vol] 9.4 mg/dL Normal 8.6-10.3 [facility] Comment on above: Performed By: #### P P, CBC, BUN, CREAT, LYTES, LIPID #### [facility] [address] [place] [id number] [place] Carbon dioxide, total [Moles /volume] in Serum or PlasmaOrdered By: SPENCER ZARATE on 02-04-2024 CO2 [Moles/Vol] 28.4 mmol/L Normal 21.0-31.0 [facility] Comment on above: Performed By: #### P P, CBC, BUN, CREAT, LYTES, LIPID #### [facility] [address] [place] [id number] [place] Chloride [Moles/volume] in S claudia or PlasmaOrdered By: SPENCER ZARATE on 02-04-2024 Chloride [Moles/Vol] 105 mmol/L Normal 98-107 [facility] Comment on above: Performed By: #### P P, CBC, BUN, CREAT, LYTES, LIPID #### [facility] [address] [place] [id number] [place] Cholesterol [Mass/volume] in Serum or PlasmaOrdered By: SPENCER ZARATE on 02-04-2024 Cholesterol [Mass/Vol] 136 mg/dL Low 140-200 [facility] Comment on above: Chol less than 200 m g/dl low riskChol 201-239 mg/dl borderline riskChol 240 mg/dl and greater high risk Result Comment: Chol less than 200 mg/dl low risk Chol 201-239 mg/dl borderline risk Chol 240 mg/dl and greater high risk Performed By: #### P P, CBC, BUN, CREAT, LYTES, LIPID #### [facility] [address] [place] [id number] [place] Cholesterol in LDL Calc [Mas s/Vol]Ordered By: SPENCER ZARATE on 02-04-2024 Cholesterol in LDL [Mass/Vol] 60 mg/dL 0-100 [facility] Comment on above: LDL ATP III CLASSIFI CATIONLDL less than 100 mg/dL OptimalLDL 100-129 mg/dL Near or above optimalLDL 130-159 mg/dL Borderline highLDL 160-189 mg/dL HighLDL greater than 189 mg/dL Very high Cholesterol in VLDL Calc [Ma ss/Vol]Ordered By: SPENCER ZARATE on 02-04-2024 Cholesterol in VLDL [Mass/Vol] 18 mg/dL [facility] Complete Blood Count Auto Di ffon 02-04-2024 Mean Corpuscular HGB Conc 34.4 g/dL Normal 32.5-35.6 [facility] Comment on above: Performed By: #### P P, CBC, BUN, CREAT, LYTES, LIPID #### [address] NRBC% 0.2 /100{WBC} Normal 0-0.5 [facility] Comment on above: Performed By: #### P P, CBC, BUN, CREAT, LYTES, LIPID #### [address] Comprehensive Metabolic Pane gabe 02-04-2024 Albumin [Mass/Vol] 4.3 g/dL Normal 3.5-5.7 [facility] Comment on above: Performed By: #### P P, CBC, BUN, CREAT, LYTES, LIPID #### [address] GFR/1.73 sq M.predicted MDRD (S/P/Bld) [Vol rate/Area] mL/min/{1.73_m2} Normal [facility] Comment on above: Performed By: #### P P, CBC, BUN, CREAT, LYTES, LIPID #### [address] Creatinine [Mass/volume] in Serum or PlasmaOrdered By: SPENCER ZARATE on 02-04-2024 Creatinine [Mass/Vol] 1.02 mg/dL Normal 0.70-1.30 [facility] Comment on above: Performed By: #### P P, CBC, BUN, CREAT, LYTES, LIPID #### [address] Creatinine [Mass/volume] in UrineOrdered By: SPENCER ZARATE on 02-04-2024 Creatinine (U) [Mass/Vol] 353.00 mg/dL [facility] Comment on above: No reference range e stablished Erythrocyte distribution wid th [Ratio] by Automated countOrdered By: SPENCER ZARATE on 02-04-2024 Erythrocyte distribution width (RBC) [Ratio] 13.8 % Normal 12.0-14.8 [facility] Comment on above: Performed By: #### P P, CBC, BUN, CREAT, LYTES, LIPID #### [address] Erythrocytes [#/volume] in B lood by Automated countOrdered By: SPENCER ZARATE on 02-04-2024 RBC (Bld) [#/Vol] 5.35 10*6/uL Normal 3.90-5.60 [facility] Comment on above: Performed By: #### P P, CBC, BUN, CREAT, LYTES, LIPID #### [address] Glucose [Mass/volume] in Ser um or PlasmaOrdered By: SPENCER ZARATE on 02-04-2024 Glucose [Mass/Vol] 122 mg/dL High 70-100 [facility] Comment on above: ADA recommended refe rence rangeRandom Glucose Reference Range is dependent on time and content of last meal. Glucose of more than 200 mg/dL in a nonstressed, ambulatory subject supports the diagnosis of Diabetes Mellitus. Result Comment: [place] Glucose Reference Range is dependent on time and content of last meal. Glucose of more than 200 mg/dL in a nonstressed, ambulatory subject supports the diagnosis of Diabetes Mellitus. ADA recommended reference range Performed By: #### P P, CBC, BUN, CREAT, LYTES, LIPID #### [facility] [address] [place] [address] Glucose mean value [Mass/vol ume] in Blood Estimated from glycated hemoglobinOrdered By: SPENCER ZARATE on 02-04-2024 Average glucose Estimated from glycated hemoglobin (Bld) [Mass/Vol] 114 mg/dL [facility] Hematocrit [Volume Fraction] of Blood by Automated countOrdered By: SPENCER ZARATE on 02-04-2024 Hematocrit (Bld) [Volume fraction] 47.5 % Normal 38.8-50.0 [facility] Comment on above: Performed By: #### P P, CBC, BUN, CREAT, LYTES, LIPID #### [address] Hemoglobin A1c percentageOrd ered By: SPENCER ZARATE on 02-04-2024 HbA1c (Bld) [Mass fraction] 5.6 % Normal 4.3-5.6 [facility] Comment on above: Increased risk for d iabetes: 5.7 - 6.4diabetes: >6.4glycemic control for adults with diabetes: <7.0 Result Comment: Incr eased risk for diabetes: 5.7 - 6.4 diabetes: >6.4 glycemic control for adults with diabetes: <7.0 Performed By: #### P P, CBC, BUN, CREAT, LYTES, LIPID #### [address] Hemoglobin [Mass/volume] in BloodOrdered By: SPENCER ZARATE on 02-04-2024 Hemoglobin (Bld) [Mass/Vol] 16.3 g/dL Normal 13.0-17.0 [facility] Comment on above: Performed By: #### P P, CBC, BUN, CREAT, LYTES, LIPID #### [address] Leukocytes [#/volume] correc ulisses for nucleated erythrocytes in Blood by Automated counOrdered By: SPENCER ZARATE on 02-04-2024 WBC corrected for nucl RBC Auto (Bld) [#/Vol] 6.4 10*3/uL 4.1-10.5 [facility] Leukocytes [#/volume] in Blo od by Automated countOrdered By: SPENCER ZARATE on 02-04-2024 WBC (Bld) [#/Vol] 6.4 10*3/uL Normal 4.1-10.5 [facility] Comment on above: Performed By: #### P P, CBC, BUN, CREAT, LYTES, LIPID #### [address] Lipid Panelon 02-04-2024 LDL Cholesterol,Calculated 60 mg/dL Normal 0-100 [facility] Comment on above: Result Comment: LDL ATP III CLASSIFICATION LDL less than 100 mg/dL Optimal LDL 100-129 mg/dL Near or above optimal LDL 130-159 mg/dL Borderline high LDL 160-189 mg/dL High LDL greater than 189 mg/dL Very high Performed By: #### P P, CBC, BUN, CREAT, LYTES, LIPID #### [address] Triglyceride w/Reflex 93 mg/dL Normal 0-149 [facility] Comment on above: Result Comment: TRIG ATP III CLASSIFICATION TRIG less than 150 mg/dL Normal TRIG 150-199 mg/dL Borderline high TRIG 200-500 mg/dL High TRIG greater than 500 mg/dL Very high Standard traceable to the Center for Disease Conrtrol and Prevention (CDC) test method. Performed By: #### P P, CBC, BUN, CREAT, LYTES, LIPID #### [address] VLDL CHOLESTEROL 18 mg/dL Normal [facility] Comment on above: Performed By: #### P P, CBC, BUN, CREAT, LYTES, LIPID #### [address] Lymphocytes [#/volume] in Bl ood by Automated countOrdered By: SPENCER ZARATE on 02-04-2024 Lymphocytes (Bld) [#/Vol] 1.0 10*3/uL Normal 1.00-4.8 [facility] Comment on above: Performed By: #### P P, CBC, BUN, CREAT, LYTES, LIPID #### [place] [address] [place] Lymphocytes/100 leukocytes i n Blood by Automated countOrdered By: SPENCER ZARATE on 02-04-2024 Lymphocytes/100 WBC (Bld) 14.9 % Normal . [facility] Comment on above: Performed By: #### P P, CBC, BUN, CREAT, LYTES, LIPID #### [address] MCH [Entitic mass] by Automa ulisses countOrdered By: SPENCER ZARATE on 02-04-2024 MCH (RBC) [Entitic mass] 30.5 pg Normal 27.5-35.2 [facility] Comment on above: Performed By: #### P P, CBC, BUN, CREAT, LYTES, LIPID #### [address] MCHC Auto (RBC) [Mass/Vol]Or dered By: SPENCER ZARATE on 02-04-2024 MCHC (RBC) [Mass/Vol] 34.4 g/dL 32.5-35.6 [facility] MCV [Entitic volume] by Auto mated countOrdered By: SPENCER ZARATE on 02-04-2024 MCV (RBC) [Entitic vol] 88.7 fL Normal 83.5-101 [facility] Comment on above: Performed By: #### P P, CBC, BUN, CREAT, LYTES, LIPID #### [address] MicroAlb Creat Ratio,Uon Creatinine, Urine (Random) 353.00 mg/dL Normal [facility] Comment on above: Result Comment: No r eference range established Performed By: #### P P, CBC, BUN, CREAT, LYTES, LIPID #### [address] Microalbumin/Creatinin e Ratio 68.8 mg/g High 0.0-30.0 [facility] Comment on above: Result Comment: 30-3 00 mg/g indicates an increased risk for diabetic nephropathy. Greater than 300 mg/g is consistent with clinical nephropathy. (Am. J. Kidney Disease 1994, 25:107) PERFORMED BY: [place] [address] PATHOLOGIST RESOURCE DEVELOPMENT DIRECTOR GWEN CRUZ M.D. Performed By: #### P P, CBC, BUN, CREAT, LYTES, LIPID #### [address] Microalbumin [Mass/volume] i n UrineOrdered By: SPENCER ZARATE on 02-04-2024 Albumin DL <= 20 mg/L (U) [Mass/Vol] 24.3 mg/dL High 0.0-1.8 [facility] Comment on above: Performed By: #### P P, CBC, BUN, CREAT, LYTES, LIPID #### [facility] [address] Neutrophils [#/volume] in Bl ood by Automated countOrdered By: SPENCER ZARATE on 02-04-2024 Neutrophils (Bld) [#/Vol] 4.7 10*3/uL Normal 1.8-7.7 [facility] Comment on above: Performed By: #### P P, CBC, BUN, CREAT, LYTES, LIPID #### [facility] [address] No Panel InformationOrdered By: SPENCER ZARATE on 02-04-2024 Estimated GFR (CKD-EPI) > 60.0 mL/Min [facility] Creatinine Clearance (Chem N/A [facility] Nucleated erythrocytes [Pres ence] in Blood by Automated countOrdered By: SPENCER ZARATE on 02-04-2024 Nucleated RBC Auto Ql (Bld) 0.2 /100{WBC} 0-0.5 [facility] Center PSA Screen (Yearly Only)on 0 02-04-2024 PSA Screen (Yearly Only) 1.140 ng/mL Normal 0.000-4.00 0 [facility] Comment on above: Order Comment: Is pa tient <50 yrs? Medicare does not pay <50.: Y What is the date of the last PSA Screen?: 01/28/23 Is Medicare the insurance?: U Did you verify eligibility (Dx Time) check TestViewGp: YES TO ALL Result Comment: Seri al tumor marker results determined by assays using different manufacturers or methods may not be comparable. [facility] Laboratory development system efficiency manager and method: [employer] DXI, CHEMILUMINESCENT IMMUNOASSAY. PERFORMED BY: [place] [address] PATHOLOGIST RESOURCE DEVELOPMENT DIRECTOR GWEN CRUZ M.D. Performed By: #### P P, CBC, BUN, CREAT, LYTES, LIPID #### [facility] [address] [place] [address] Platelet mean volume [Entiti c volume] in Blood by Automated countOrdered By: SPENCER ZARATE on 02-04-2024 Platelet mean volume (Bld) [Entitic vol] 10.6 fL High 6.6-10.1 [facility] Comment on above: Performed By: #### P P, CBC, BUN, CREAT, LYTES, LIPID #### [facility] [address] Platelets [#/volume] in Bloo d by Automated countOrdered By: SPENCER ZARATE on 02-04-2024 Platelets (Bld) [#/Vol] 129 10*3/uL Low 150-450 [facility] Comment on above: Performed By: #### P P, CBC, BUN, CREAT, LYTES, LIPID #### [address] Potassium [Moles/volume] in Serum or PlasmaOrdered By: SPENCER ZARATE on 02-04-2024 Potassium [Moles/Vol] 4.4 mmol/L Normal 3.5-5.1 [facility] Comment on above: Performed By: #### P P, CBC, BUN, CREAT, LYTES, LIPID #### [address] Prostate specific Ag [Mass/v olume] in Serum or PlasmaOrdered By: SPENCER ZARATE on 02-04-2024 Prostate specific Ag [Mass/Vol] 1.140 ng/mL 0.000-4.00 0 [facility] Comment on above: Serial tumor marker results determined by assays using different manufacturers or methods may not be comparable.[facility] development system efficiency manager and method:[employer] DXI, CHEMILUMINESCENT IMMUNOASSAY. Protein [Mass/volume] in Ser um or PlasmaOrdered By: SPENCER ZARATE on 02-04-2024 Protein [Mass/Vol] 6.2 g/dL Low 6.4-8.9 [facility] Comment on above: Performed By: #### P P, CBC, BUN, CREAT, LYTES, LIPID #### [address] Serum globulin measurement b y calculation (mass/volume)Ordered By: SPENCER ZARATE on 02-04-2024 Globulin (S) [Mass/Vol] 1.9 g/dL Normal [facility] Comment on above: Performed By: #### P P, CBC, BUN, CREAT, LYTES, LIPID #### [facility] [address] [place] [address] Serum or plasma albumin/glob ulin mass ratioOrdered By: SPENCER ZARATE on 02-04-2024 Albumin/Globulin [Mass ratio] 2.3 {ratio} Normal [facility] Comment on above: Performed By: #### P P, CBC, BUN, CREAT, LYTES, LIPID #### [facility] [address] [place] [address] Serum or plasma anion gap de terminationOrdered By: SPENCER ZARATE on 02-04-2024 Anion gap [Moles/Vol] 9.0 mmol/L Normal 6.0-15.0 [facility] Comment on above: Performed By: #### P P, CBC, BUN, CREAT, LYTES, LIPID #### [facility] [address] [place] [address] Serum or plasma high density lipoprotein (HDL) cholesterol measurementOrdered By: SPENCER ZARATE on 02-04-2024 Cholesterol in HDL [Mass/Vol] 57 mg/dL Normal 23-92 [facility] Comment on above: HDL CHOL ATP-III CLA SSIFICATION Cardiovascular RiskHDL > or equal to 60 mg/dL LOWHDL < 40 mg/dL HIGH Result Comment: HDL CHOL ATP-III CLASSIFICATION Cardiovascular Risk HDL > or equal to 60 mg/dL LOW HDL < 40 mg/dL HIGH Performed By: #### P P, CBC, BUN, CREAT, LYTES, LIPID #### [facility] [address] [place] [address] Serum or plasma total choles terol/high density lipoprotein (HDL) cholesterol mass ratOrdered By: SPENCER ZARATE on 02-04-2024 Cholesterol.total/Chol esterol in HDL [Mass ratio] 2.4 {ratio} Normal <5.0 [facility] Comment on above: Result Comment: PERF ORMED BY: [place] [address] PATHOLOGIST RESOURCE DEVELOPMENT DIRECTOR GWEN CRUZ M.D. Performed By: #### P P, CBC, BUN, CREAT, LYTES, LIPID #### [facility] [address] [place] [address] [place] Sodium [Moles/volume] in Ser um or PlasmaOrdered By: SPENCER ZARATE on 02-04-2024 Sodium [Moles/Vol] 138 mmol/L Normal 136-145 [facility] Comment on above: Performed By: #### P P, CBC, BUN, CREAT, LYTES, LIPID #### [facility] [address] [place] [id number] [facility] Triglyceride [Mass/volume] i n Serum or PlasmaOrdered By: SPENCER ZARATE on 02-04-2024 Triglyceride [Mass/Vol] 93 mg/dL 0-149 [facility] Comment on above: TRIG ATP III CLASSIF ICATIONTRIG less than 150 mg/dL NormalTRIG 150-199 mg/dL Borderline highTRIG 200-500 mg/dL High TRIG greater than 500 mg/dL Very highStandard traceable to the Center for Disease Conrtrol and Prevention (CDC) test method. Urea nitrogen [Mass/volume] in Serum or PlasmaOrdered By: SPENCER ZARATE on 02-04-2024 Urea nitrogen [Mass/Vol] 18 mg/dL Normal 7-25 [facility] Comment on above: Performed By: #### P P, CBC, BUN, CREAT, LYTES, LIPID #### [facility] [address] [place] [id number] [facility] Urine microalbumin/creatinin e mass ratioOrdered By: SPENCER ZARATE on 02-04-2024 Albumin/Creatinine DL <= 20 mg/L (U) [Mass ratio] 68.8 mg/g High 0.0-30.0 [facility] Comment on above: 30-300 mg/g indicate s an increased risk for diabetic nephropathy. Greater than 300 mg/g is consistent with clinical nephropathy. (Am. J. Kidney Disease 1995, 25:107) XR HIP 2 OR 3 VW LEFTon XR HIP 2 OR 3 VW LEFT FINDINGS: No significant joint space reduction or joint space effusion is suggested. No cortical or stress fracture is identified. No significant pincer or CAM deformities are present. Pelvic ring and sacral struts are intact. Soft tissues are relatively unremarkable. IMPRESSION: Minimal arthritis TRANSCRIBED BY: ELECTRONICALLY SIGNED BY: Jose D Buitrago MD Normal Not Available CT LUNG SCREENING LOW DOSEon 10-29-2023 CT LUNG SCREENING LOW DOSE This is a summary report. The complete report is available in the patient's medical record. If you cannot access the medical record, please contact the sending organization for a detailed fax or copy. CT LUNG SCREENING LOW DOSE CLINICAL HISTORY: low dose yearly screening TECHNIQUE: Spiral low dose CT acquisition of the chest from the thoracic inlet to the upper abdomen without contrast for lung screening. All CT scans at this facility use dose modulation, iterative reconstruction, and/or weight based dosing when appropriate to reduce radiation dose to as low as reasonably achievable. COMPARISON: 11/27/2022. RESULT: Lung parenchyma and pleura: Central airways grossly patent. No consolidative opacity. Areas of probable scarring/atelectasis, especially within the right lung. Pleural calcifications. Granulomatous calcifications. No suspicious nodules. No pleural effusion or pneumothorax. Thoracic inlet, heart, and mediastinum: Visualized thyroid unremarkable. No axillary, mediastinal, or hilar lymphadenopathy. Calcified granulomas left hilar region. Mild calcifications of the aorta without aneurysm. Normal pulmonary size artery. Normal heart size. Diffuse coronary calcifications and/or stents. No pericardial effusion or thickening. Esophagus nondilated. Bones: No acute osseous findings. No destructive osseous lesions. Degenerative changes. Soft tissues: Unremarkable. Upper abdomen: No acute abnormality in the imaged upper abdomen. Hepatic steatosis. Splenic calcification. IMPRESSION: Lung-RADS: LUNGRADS 1 - Negative Follow-Up Recommendation: LDCT 1 Year ELECTRONICALLY SIGNED BY: Simeon Melendez MD Normal Not Available XR CHEST 2 VIEWSon XR CHEST 2 VIEWS FINDINGS: Comparison, CT chest, November 27, 2022. Osseous structures intact. Cardiopericardial silhouette normal. Pulmonary vasculature normal. Right diaphragm mildly elevated. Lungs clear. IMPRESSION: No acute cardiopulmonary disease. ELECTRONICALLY SIGNED BY: Foster Goff MD Normal Not Available Activated partial thrombopla stin time (aPTT) in platelet poor plasma by coagulation aOrdered By: Jesusita Chavarria on 09-29-2023 aPTT Coag (PPP) [Time] 34.4 s 25.1-36.5 [facility] Comment on above: A hematocrit value g reater than 55% may lead to inaccurate results in coagulation testing. Patients having hematocrit values >55% require a special collection tube for coagulation studies. Please contact the laboratory at [phone] for redraw instructions. BNP ser/plasOrdered By: Roxann Chavarria on 09-29-2023 Natriuretic peptide B (Bld) [Mass/Vol] 41.0 pg/mL Normal 5-100 [facility] Comment on above: Result Comment: PERF ORMED BY: [place] [address] PATHOLOGIST RESOURCE DEVELOPMENT DIRECTOR GWEN CRUZ M.D. Performed By: #### P P, CBC, BUN, CREAT, LYTES, LIPID #### [address] Basic Metabolic Panelon 09-12 Creatinine Clr Calc Pharmacy 100.19 Normal [facility] Comment on above: Result Comment: PERF ORMED BY: [place] [address] PATHOLOGIST RESOURCE DEVELOPMENT DIRECTOR GWEN CRUZ M.D. Performed By: #### C K, DIFF CBC, HS TROP, BNP, PT, BMP, PTT #### [address] GFR/1.73 sq M.predicted MDRD (S/P/Bld) [Vol rate/Area] mL/min/{1.73_m2} Normal [facility] Comment on above: Performed By: #### C K, DIFF CBC, HS TROP, BNP, PT, BMP, PTT #### [place] [address] [place] Basophils Auto (Bld) [#/Vol] Ordered By: Jesusita Chavarria on 09-29-2023 Basophils (Bld) [#/Vol] N/A [facility] Basophils/100 WBC Auto (Bld) Ordered By: Jesusita Chavarria on 09-29-2023 Basophils/100 WBC (Bld) N/A [facility] Calcium [Mass/volume] in Ser um or PlasmaOrdered By: Jesusita Chavarria on 09-29-2023 Calcium [Mass/Vol] 9.0 mg/dL Normal 8.6-10.3 [facility] Comment on above: Performed By: #### C K, DIFF CBC, HS TROP, BNP, PT, BMP, PTT #### [facility] [address] Carbon dioxide, total [Moles /volume] in Serum or PlasmaOrdered By: Jesusita Chavarria on 09-29-2023 CO2 [Moles/Vol] 26.9 mmol/L Normal 21.0-31.0 [facility] Comment on above: Performed By: #### C K, DIFF CBC, HS TROP, BNP, PT, BMP, PTT #### [facility] [address] Chloride [Moles/volume] in S claudia or PlasmaOrdered By: Jesusita Chavarria on 09-29-2023 Chloride [Moles/Vol] 111 mmol/L High 98-107 [facility] Comment on above: Performed By: #### C K, DIFF CBC, HS TROP, BNP, PT, BMP, PTT #### [facility] [address] Creatine kinase [Enzymatic a ctivity/volume] in Serum or PlasmaOrdered By: Jesusita Chavarria on 09-29-2023 CK [Catalytic activity/Vol] 66 U/L Normal 30-223 [facility] Comment on above: Performed By: #### P P, CBC, BUN, CREAT, LYTES, LIPID #### [facility] [address] [place] [address] [place] Creatinine [Mass/volume] in Serum or PlasmaOrdered By: Jesusita Chavarria on 09-29-2023 Creatinine [Mass/Vol] 0.78 mg/dL Normal 0.70-1.30 [facility] Comment on above: Performed By: #### C K, DIFF CBC, HS TROP, BNP, PT, BMP, PTT #### [facility] [address] [place] [address] [place] Diff and CBCon 09-29-2023 Mean Corpuscular HGB Conc 35.3 g/dL Normal 32.5-35.6 [facility] Comment on above: Performed By: #### P P, CBC, BUN, CREAT, LYTES, LIPID #### [address] Monocytes/100 WBC (Bld) 16.62 % Normal 0.00-20.00 [facility] Comment on above: Performed By: #### P P, CBC, BUN, CREAT, LYTES, LIPID #### [address] Platelet Estimate Decreased Normal Normal [facility] Comment on above: Performed By: #### P P, CBC, BUN, CREAT, LYTES, LIPID #### [address] Platelet Morphology Normal Normal Normal [facility] Comment on above: Result Comment: PERF ORMED BY: [place] [address] PATHOLOGIST RESOURCE DEVELOPMENT DIRECTOR GWEN CRUZ M.D. Performed By: #### P P, CBC, BUN, CREAT, LYTES, LIPID #### [address] Polychromasia Slight Normal [facility] Comment on above: Performed By: #### P P, CBC, BUN, CREAT, LYTES, LIPID #### [address] Reactive Lymphocytes 2 % Normal 0-12 [facility] Comment on above: Performed By: #### P P, CBC, BUN, CREAT, LYTES, LIPID #### [address] ECG 12 lead ECGon 09-29-2023 ECG 12 lead ECG [facility] [address] Electrocardiograph Report Signed Patient: Jessenia Pyle MR#: [id number] : 1945 Acct:[id number] Age/Sex: 78 / M ADM Date: 09/29/23 Loc: ER Room: Type: [facility] ER Attending Dr: Ordering Provider: Jesusita Chavarria DO Date of Service: 09/29/23 ECG/ECG 12 lead ECG: Recheck/Abnormal Lab/Rx Copies to: Test Reason : Blood Pressure : 167/098 mmHG Vent. Rate : 079 BPM Atrial Rate : 079 BPM P-R Int : 176 ms QRS Dur : 082 ms QT Int : 386 ms P-R-T Axes : 046 050 077 degrees QTc Int : 442 ms Normal sinus rhythm Normal ECG When compared with ECG of 29-AUG-2015 09:41, Vent. rate has increased BY 27 BPM Nonspecific T wave abnormality now evident in Lateral leads Confirmed by JESUSITA CHAVARRIA DO ([id number]) on 09/29/2023 3:26:36 AM Referred By: Electronically Signed By:JESUSITA CHAVARRIA DO Transcribed By: MUS Signed By Jesusita Chavarria DO 0326 Normal [facility] Eosinophils Auto (Bld) [#/Vo l]Ordered By: Jesusita Chavarria on 09-29-2023 Eosinophils (Bld) [#/Vol] N/A [facility] Eosinophils/100 WBC Auto (Bl d)Ordered By: Jesusita Chavarria on 09-29-2023 Eosinophils/100 WBC (Bld) N/A [facility] Eosinophils/100 leukocytes i n Blood by Manual countOrdered By: Jesusita Chavarria on 09-29-2023 Eosinophils/100 WBC (Bld) 4 % High 1-3 [facility] Comment on above: Performed By: #### P P, CBC, BUN, CREAT, LYTES, LIPID #### [facility] [address] [place] [address] Erythrocyte distribution wid th [Ratio] by Automated countOrdered By: Jesusita Chavarria on 09-29-2023 Erythrocyte distribution width (RBC) [Ratio] 12.9 % Normal 12.0-14.8 [facility] Comment on above: Performed By: #### P P, CBC, BUN, CREAT, LYTES, LIPID #### [facility] [address] [place] [address] Erythrocytes [#/volume] in B lood by Automated countOrdered By: Jesusita Chavarria on 09-29-2023 RBC (Bld) [#/Vol] 4.73 10*6/uL Normal 3.90-5.60 [facility] Comment on above: Performed By: #### P P, CBC, BUN, CREAT, LYTES, LIPID #### [facility] [address] Glucose [Mass/volume] in Ser um or PlasmaOrdered By: Jesusita Chavarria on 09-29-2023 Glucose [Mass/Vol] 140 mg/dL High 70-100 [facility] Comment on above: ADA recommended refe rence rangeRandom Glucose Reference Range is dependent on time and content of last meal. Glucose of more than 200 mg/dL in a nonstressed, ambulatory subject supports the diagnosis of Diabetes Mellitus. Result Comment: [place] om Glucose Reference Range is dependent on time and content of last meal. Glucose of more than 200 mg/dL in a nonstressed, ambulatory subject supports the diagnosis of Diabetes Mellitus. ADA recommended reference range Performed By: #### C K, DIFF CBC, HS TROP, BNP, PT, BMP, PTT #### [facility] [address] [place] [address] [place] Hematocrit [Volume Fraction] of Blood by Automated countOrdered By: Jesusita Chavarria on 09-29-2023 Hematocrit (Bld) [Volume fraction] 44.0 % Normal 38.8-50.0 [facility] Comment on above: Performed By: #### P P, CBC, BUN, CREAT, LYTES, LIPID #### [facility] [address] Hemoglobin [Mass/volume] in BloodOrdered By: Jesusita Chavarria on 09-29-2023 Hemoglobin (Bld) [Mass/Vol] 15.5 g/dL Normal 13.0-17.0 [facility] Comment on above: Performed By: #### P P, CBC, BUN, CREAT, LYTES, LIPID #### [place] [address] [place] INR in Platelet poor plasma by Coagulation assayOrdered By: Jesusita Chavarria on 09-29-2023 INR Coag (PPP) [Relative time] 1.0 {INR} Normal [facility] Comment on above: INR Therapeutic Rang e A) Pre- and Peroperative OAT started two weeks before surgery. NOT HIP SURGERY: 1.5 - 2.5 HIP SURGERY: 2 - 3B) Primary and secondary prevention of venous THROMBOSIS: 2 - 3C) Active venous thrombosis, pulmonary embolismand prevention of recurrent venous thrombosis: 2 - 3D) Prevention of arterial thromboembolismincluding patients with mechanical heart valves: 3 - 4.5 Result Comment: INR Therapeutic Range A) Pre- and Peroperative OAT started two weeks before surgery. NOT HIP SURGERY: 1.5 - 2.5 HIP SURGERY: 2 - 3 B) Primary and secondary prevention of venous THROMBOSIS: 2 - 3 C) Active venous thrombosis, pulmonary embolism and prevention of recurrent venous thrombosis: 2 - 3 D) Prevention of arterial thromboembolism including patients with mechanical heart valves: 3 - 4.5 Performed By: #### C K, DIFF CBC, HS TROP, BNP, PT, BMP, PTT #### [facility] [address] Leukocytes [#/volume] correc ulisses for nucleated erythrocytes in Blood by Automated counOrdered By: Jesusita Chavarria on 09-29-2023 WBC corrected for nucl RBC Auto (Bld) [#/Vol] 5.6 10*3/uL 4.1-10.5 [facility] Leukocytes [#/volume] in Blo od by Automated countOrdered By: Jesusita Chavarria on 09-29-2023 WBC (Bld) [#/Vol] 5.6 10*3/uL Normal 4.1-10.5 [facility] Comment on above: Performed By: #### P P, CBC, BUN, CREAT, LYTES, LIPID #### [facility] [address] [place] [address] [place] Lymphocytes Auto (Bld) [#/Vo l]Ordered By: Jesusita Chavarria on 09-29-2023 Lymphocytes (Bld) [#/Vol] N/A [facility] Lymphocytes/100 WBC Auto (Bl d)Ordered By: Jesusita Chavarria on 09-29-2023 Lymphocytes/100 WBC (Bld) N/A [facility] Lymphocytes/100 leukocytes i n Blood by Manual countOrdered By: Jesusita Chavarria on 09-29-2023 Lymphocytes/100 WBC (Bld) 18 % Normal 18-42 [facility] Comment on above: Performed By: #### P P, CBC, BUN, CREAT, LYTES, LIPID #### [facility] [address] [place] [address] MCH [Entitic mass] by Automa ulisses countOrdered By: Jesusita Chavarria on 09-29-2023 MCH (RBC) [Entitic mass] 32.8 pg Normal 27.5-35.2 [facility] Comment on above: Performed By: #### P P, CBC, BUN, CREAT, LYTES, LIPID #### [facility] [address] [place] [address] MCHC Auto (RBC) [Mass/Vol]Or dered By: Jesusita Chavarria on 09-29-2023 MCHC (RBC) [Mass/Vol] 35.3 g/dL 32.5-35.6 [facility] MCV [Entitic volume] by Auto mated countOrdered By: Jesusita Chavarria on 09-29-2023 MCV (RBC) [Entitic vol] 92.9 fL Normal 83.5-101 [facility] Comment on above: Performed By: #### P P, CBC, BUN, CREAT, LYTES, LIPID #### [facility] [address] [place] [address] Manual blood segmented neutr ophils/100 leukocytesOrdered By: Jesusita Chavarria on 09-29-2023 Segmented neutrophils/100 WBC (Bld) 70 % Normal 50-70 [facility] Comment on above: Performed By: #### P P, CBC, BUN, CREAT, LYTES, LIPID #### [facility] [address] [place] [address] Monocyte distribution width [Entitic volume] in Blood by AutomatedOrdered By: Jesusita Chavarria on 09-29-2023 Monocyte distribution width Auto (Bld) [Entitic vol] 16.62 % 0.00-20.00 [facility] Monocytes Auto (Bld) [#/Vol] Ordered By: Jesusita Chavarria on 09-29-2023 Monocytes (Bld) [#/Vol] N/A [facility] Monocytes/100 WBC Auto (Bld) Ordered By: Jesusita Chavarria on 09-29-2023 Monocytes/100 WBC (Bld) N/A [facility] Monocytes/100 leukocytes in Blood by Manual countOrdered By: Jesusita Chavarria on 09-29-2023 Monocytes/100 WBC (Bld) 7 % Normal 2-11 [facility] Comment on above: Performed By: #### P P, CBC, BUN, CREAT, LYTES, LIPID #### [facility] [address] [place] [id number] [place] Neutrophils Auto (Bld) [#/Vo l]Ordered By: Jesusita Chavarria on 09-29-2023 Neutrophils (Bld) [#/Vol] N/A [facility] Neutrophils/100 WBC Auto (Bl d)Ordered By: Jesusita Chavarria on 09-29-2023 Neutrophils/100 WBC (Bld) N/A [facility] No Panel InformationOrdered By: Jesusita Chavarria on 09-29-2023 Estimated GFR (CKD-EPI) > 60.0 mL/Min [facility] Creatinine Clearance (Chem 100.19 [facility] Nucleated erythrocytes [Pres ence] in Blood by Automated countOrdered By: Jesusita Chavarria on 09-29-2023 Nucleated RBC Auto Ql (Bld) N/A [facility] Partial Thromboplastin Timeo n 09-29-2023 aPTT Coag (Bld) [Time] 34.4 s Normal 25.1-36.5 [facility] Comment on above: Result Comment: A he matocrit value greater than 55% may lead to inaccurate results in coagulation testing. Patients having hematocrit values >55% require a special collection tube for coagulation studies. Please contact the laboratory at [phone] for redraw instructions. PERFORMED BY: [facility] [address] [facility]. [place] [id number] PATHOLOGIST RESOURCE DEVELOPMENT DIRECTOR GWEN CRUZ M.D. Performed By: #### C K, DIFF CBC, HS TROP, BNP, PT, BMP, PTT #### [facility] [address] Platelet adequacy [Presence] in Blood by Light microscopyOrdered By: Jesusita Chavarria on 09-29-2023 Platelets LM Ql (Bld) Decreased Normal [facility] Platelet mean volume [Entiti c volume] in Blood by Automated countOrdered By: Jesusita Chavarria on 09-29-2023 Platelet mean volume (Bld) [Entitic vol] 10.4 fL High 6.6-10.1 [facility] Comment on above: Performed By: #### P P, CBC, BUN, CREAT, LYTES, LIPID #### [facility] [address] [place] [address] Platelet morphology finding [Identifier] in BloodOrdered By: Jesusita Chavarria on 09-29-2023 Platelet morphology finding Nom (Bld) Normal Normal [facility] Platelets [#/volume] in Bloo d by Automated countOrdered By: Jesusita Chavarria on 09-29-2023 Platelets (Bld) [#/Vol] 136 10*3/uL Low 150-450 [facility] Comment on above: Performed By: #### P P, CBC, BUN, CREAT, LYTES, LIPID #### [facility] [address] [place] [address] Polychromasia [Presence] in Blood by Light microscopyOrdered By: Jesusita Chavarria on 09-29-2023 Polychromasia LM Ql (Bld) Slight [facility] Potassium [Moles/volume] in Serum or PlasmaOrdered By: Jesusita Chavarria on 09-29-2023 Potassium [Moles/Vol] 3.8 mmol/L Normal 3.5-5.1 [facility] Comment on above: Performed By: #### C K, DIFF CBC, HS TROP, BNP, PT, BMP, PTT #### [facility] [address] [place] [address] Prothrombin time (PT)Ordered By: Jesusita Chavarria on 09-29-2023 PT Coag (PPP) [Time] 11.8 s Normal 9.0-12.9 [facility] Comment on above: A hematocrit value g reater than 55% may lead to inaccurate results in coagulation testing. Patients having hematocrit values >55% require a special collection tube for coagulation studies. Please contact the laboratory at [phone] for redraw instructions. Result Comment: A he matocrit value greater than 55% may lead to inaccurate results in coagulation testing. Patients having hematocrit values >55% require a special collection tube for coagulation studies. Please contact the laboratory at [phone] for redraw instructions. Performed By: #### C K, DIFF CBC, HS TROP, BNP, PT, BMP, PTT #### [address] RBC morphologyOrdered By: Emeterio Chavarria on 09-29-2023 RBC morphology finding Nom (Bld) Normal Normal Normal [facility] Comment on above: Performed By: #### P P, CBC, BUN, CREAT, LYTES, LIPID #### [address] Serum or plasma anion gap de terminationOrdered By: Jesusita Chavarria on 09-29-2023 Anion gap [Moles/Vol] 2.9 mmol/L Low 6.0-15.0 [facility] Comment on above: Performed By: #### C K, DIFF CBC, HS TROP, BNP, PT, BMP, PTT #### [address] Sodium [Moles/volume] in Ser um or PlasmaOrdered By: Jesusita Chavarria on 09-29-2023 Sodium [Moles/Vol] 137 mmol/L Normal 136-145 [facility] Comment on above: Performed By: #### C K, DIFF CBC, HS TROP, BNP, PT, BMP, PTT #### [address] Troponin I High Sensitivityo n 09-29-2023 Troponin I High Sensitivity 6.1 pg/mL Normal 0.0-20.0 [facility] Comment on above: Result Comment: PERF ORMED BY: [place] [address] PATHOLOGIST RESOURCE DEVELOPMENT DIRECTOR GWEN CRUZ M.D. Performed By: #### P P, CBC, BUN, CREAT, LYTES, LIPID #### [facility] [address] [id number] [facility] Troponin I.cardiac [Mass/vol ume] in Serum or Plasma by Detection limit <= 0.01 ng/Ordered By: Jesusita Chavarria on 09-29-2023 Troponin I.cardiac DL <= 0.01 ng/mL [Mass/Vol] 6.1 pg/mL 0.0-20.0 [facility] Urea nitrogen [Mass/volume] in Serum or PlasmaOrdered By: Jesusita Chavarria on 09-29-2023 Urea nitrogen [Mass/Vol] 18 mg/dL Normal 7-25 [facility] Comment on above: Performed By: #### C K, DIFF CBC, HS TROP, BNP, PT, BMP, PTT #### [facility] [address] [place], [place] [id number] [facility] Variant lymphocytes/100 WBC Manual cnt (Bld)Ordered By: Jesusita Chavarria on 09-29-2023 Variant lymphocytes/100 WBC (Bld) 2 % 0-12 [facility] XR chest 2V*on 09-29-2023 XR chest 2V* [facility] [place] [address] [place] [address] XRay Report Signed Patient: Jessenia Pyle MR#: [id number] : 1945 Acct:[id number] Age/Sex: 78 / M ADM Date: 09/29/23 Loc: ER Room: Type: [facility] ER Attending Dr: Copies to: Jesusita Chavarria DO Ordering Provider: Jesusita Chavarria DO Date of Service: 09/29/23 XR/XR chest 2V*: Recheck/Abnormal Lab/Rx Chest 2 views CLINICAL HISTORY: Hypertension. Shortness of breath for 6 months. COMPARISON: Chest 01/28/2023 FINDINGS: Heart normal in size. Chronic elevation of the right hemidiaphragm with right middle/lower lobe scarring. No consolidation pneumothorax pleural effusion or free air. XR/XR chest 2V* IMPRESSION: NO ACUTE FINDINGS. Impression dictated by: Jose D De Los Santos Jr. D.OHerbert09/29/2023 10:06 AM Dictation Location: [facility]-15 Transcribed By: [facility] 09/29/23 1006 Dictated By: Jose D De Los Santos Jr, 09/29/23 1005 Signed By: 09/29/23 1006 Normal [facility] Alanine aminotransferase [En zymatic activity/volume] in Serum or PlasmaOrdered By: Chris Pierre on 08-02-2023 ALT [Catalytic activity/Vol] 60 U/L 7-52 [facility] Albumin [Mass/volume] in Ser um or Plasma by Bromocresol green (BCG) dye binding methoOrdered By: Chris Pierre on 08-02-2023 Albumin BCG dye [Mass/Vol] 4.1 g/dL 3.5-5.7 [facility] Alkaline phosphatase [Enzyma tic activity/volume] in Serum or PlasmaOrdered By: Chris Pierre on 08-02-2023 ALP [Catalytic activity/Vol] 67 U/L 34-104 [facility] Aspartate aminotransferase [ Enzymatic activity/volume] in Serum or PlasmaOrdered By: Chris Pierre on 08-02-2023 AST [Catalytic activity/Vol] 49 U/L 13-39 [facility] Basophils Auto (Bld) [#/Vol] Ordered By: Chris Pierre on 08-02-2023 Basophils (Bld) [#/Vol] 0.0 10*3/uL 0.0-0.2 [facility] Basophils/100 WBC Auto (Bld) Ordered By: Chris Pierre on 08-02-2023 Basophils/100 WBC (Bld) 0.7 % . [facility] Bilirubin.total [Mass/volume ] in Serum or PlasmaOrdered By: Chris Pierre on 08-02-2023 Bilirubin [Mass/Vol] 1.3 mg/dL 0.3-1.0 [facility] Comment on above: Samples from patient s who have taken Naproxen have shown spurious elevation in Total Bilirubin levels. A metabolite of Naproxen, O-desmethylnaproxen, has been shown to interfere with the Mariam-Mindy method for measuring Total Bilirubin. Calcium [Mass/volume] in Ser um or PlasmaOrdered By: Chris Pierre on 08-02-2023 Calcium [Mass/Vol] 9.2 mg/dL 8.6-10.3 [facility] Carbon dioxide, total [Moles /volume] in Serum or PlasmaOrdered By: Chris Pierre on 08-02-2023 CO2 [Moles/Vol] 30.9 mmol/L 21.0-31.0 [facility] Chloride [Moles/volume] in S claudia or PlasmaOrdered By: Chris Pierre on 08-02-2023 Chloride [Moles/Vol] 104 mmol/L 98-107 [facility] Cholesterol [Mass/volume] in Serum or PlasmaOrdered By: Chris Pierre on 08-02-2023 Cholesterol [Mass/Vol] 128 mg/dL 140-200 [facility] Comment on above: Chol less than 200 m g/dl low riskChol 201-239 mg/dl borderline riskChol 240 mg/dl and greater high risk Cholesterol in LDL Calc [Mas s/Vol]Ordered By: Chris Pierre on 08-02-2023 Cholesterol in LDL [Mass/Vol] 52 mg/dL 0-100 [facility] Comment on above: LDL ATP III CLASSIFI CATIONLDL less than 100 mg/dL OptimalLDL 100-129 mg/dL Near or above optimalLDL 130-159 mg/dL Borderline highLDL 160-189 mg/dL HighLDL greater than 189 mg/dL Very high Cholesterol in VLDL Calc [Ma ss/Vol]Ordered By: Chris Pierre on 08-02-2023 Cholesterol in VLDL [Mass/Vol] 36 mg/dL [facility] Creatinine [Mass/volume] in Serum or PlasmaOrdered By: Chris Pierre on 08-02-2023 Creatinine [Mass/Vol] 1.04 mg/dL 0.70-1.30 [facility] Eosinophils Auto (Bld) [#/Vo l]Ordered By: Chris Pierre on 08-02-2023 Eosinophils (Bld) [#/Vol] 0.1 10*3/uL 0.0-0.45 [facility] Eosinophils/100 WBC Auto (Bl d)Ordered By: Chris Pierre on 08-02-2023 Eosinophils/100 WBC (Bld) 1.6 % . [facility] Erythrocyte distribution wid th Auto (RBC) [Ratio]Ordered By: Chris Pierre on 08-02-2023 Erythrocyte distribution width (RBC) [Ratio] 13.9 % 12.0-14.8 [facility] Globulin Calc (S) [Mass/Vol] Ordered By: Chris Pierre on 08-02-2023 Globulin (S) [Mass/Vol] 2.0 g/dL [facility] Glucose [Mass/volume] in Ser um or PlasmaOrdered By: Chris Pierre on 08-02-2023 Glucose [Mass/Vol] 148 mg/dL 70-100 [facility] Comment on above: ADA recommended refe rence rangeRandom Glucose Reference Range is dependent on time and content of last meal. Glucose of more than 200 mg/dL in a nonstressed, ambulatory subject supports the diagnosis of Diabetes Mellitus. Glucose mean value [Mass/vol ume] in Blood Estimated from glycated hemoglobinOrdered By: Chris Pierre on 08-02-2023 Average glucose Estimated from glycated hemoglobin (Bld) [Mass/Vol] 126 mg/dL [facility] Hematocrit Auto (Bld) [Volum e fraction]Ordered By: Chris Pierre on 08-02-2023 Hematocrit (Bld) [Volume fraction] 47.3 % 38.8-50.0 [facility] Hemoglobin A1c percentageOrd ered By: Chirs Pierre on 08-02-2023 HbA1c (Bld) [Mass fraction] 6.0 % 4.3-5.6 [facility] Comment on above: Increased risk for d iabetes: 5.7 - 6.4diabetes: >6.4glycemic control for adults with diabetes: <7.0 Hemoglobin [Mass/volume] in BloodOrdered By: Chris Pierre on 08-02-2023 Hemoglobin (Bld) [Mass/Vol] 16.3 g/dL 13.0-17.0 [facility] Leukocytes [#/volume] correc ulisses for nucleated erythrocytes in Blood by Automated counOrdered By: Chris Pierre on 08-02-2023 WBC corrected for nucl RBC Auto (Bld) [#/Vol] 6.4 10*3/uL 4.1-10.5 [facility] Lymphocytes Auto (Bld) [#/Vo l]Ordered By: Chris Pierre on 08-02-2023 Lymphocytes (Bld) [#/Vol] 1.0 10*3/uL 1.00-4.8 [facility] Lymphocytes/100 WBC Auto (Bl d)Ordered By: Chris Pierre on 08-02-2023 Lymphocytes/100 WBC (Bld) 15.4 % . [facility] MCH Auto (RBC) [Entitic mass ]Ordered By: Chris Pierre on 08-02-2023 MCH (RBC) [Entitic mass] 32.8 pg 27.5-35.2 [facility] MCHC Auto (RBC) [Mass/Vol]Or dered By: Chris Pierre on 08-02-2023 MCHC (RBC) [Mass/Vol] 34.5 g/dL 32.5-35.6 [facility] MCV Auto (RBC) [Entitic vol] Ordered By: Chris Pierre on 08-02-2023 MCV (RBC) [Entitic vol] 95.1 fL 83.5-101 [facility] Monocytes Auto (Bld) [#/Vol] Ordered By: Chris Pierre on 08-02-2023 Monocytes (Bld) [#/Vol] 0.6 10*3/uL 0.0-0.8 [facility] Monocytes/100 WBC Auto (Bld) Ordered By: Chris Pierre on 08-02-2023 Monocytes/100 WBC (Bld) 8.9 % . [facility] Neutrophils Auto (Bld) [#/Vo l]Ordered By: Chris Pierre on 08-02-2023 Neutrophils (Bld) [#/Vol] 4.7 10*3/uL 1.8-7.7 [facility] Neutrophils/100 WBC Auto (Bl d)Ordered By: Chris Pierre on 08-02-2023 Neutrophils/100 WBC (Bld) 73.4 % . [facility] No Panel InformationOrdered By: Chris Pierre on 08-02-2023 Estimated GFR (CKD-EPI) > 60.0 mL/Min [facility] Creatinine Clearance (Chem N/A [facility] Nucleated erythrocytes [Pres ence] in Blood by Automated countOrdered By: Chris Pierre on 08-02-2023 Nucleated RBC Auto Ql (Bld) 0.8 /100{WBC} 0-0.5 [facility] Platelet adequacy [Presence] in Blood by Light microscopyOrdered By: Chris Pierre on 08-02-2023 Platelets LM Ql (Bld) Decreased Normal [facility] Platelet mean volume Auto (B ld) [Entitic vol]Ordered By: Chris Pierre on 08-02-2023 Platelet mean volume (Bld) [Entitic vol] 10.1 fL 6.6-10.1 [facility] Platelet morphology finding [Identifier] in BloodOrdered By: Chris Pierre on 08-02-2023 Platelet morphology finding Nom (Bld) Normal Normal [facility] Platelets Auto (Bld) [#/Vol] Ordered By: Chris Pierre on 08-02-2023 Platelets (Bld) [#/Vol] 143 10*3/uL 150-450 [facility] Potassium [Moles/volume] in Serum or PlasmaOrdered By: Chris Pierre on 08-02-2023 Potassium [Moles/Vol] 4.3 mmol/L 3.5-5.1 [facility] Protein [Mass/volume] in Ser um or PlasmaOrdered By: Chris Pierre on 08-02-2023 Protein [Mass/Vol] 6.1 g/dL 6.4-8.9 [facility] RBC Auto (Bld) [#/Vol]Ordere d By: Chris Pierre on 08-02-2023 RBC (Bld) [#/Vol] 4.97 10*6/uL 3.90-5.60 [facility] RBC morphologyOrdered By: Elio Pierre on 08-02-2023 RBC morphology finding Nom (Bld) Normal Normal [facility] Serum or plasma albumin/glob ulin mass ratioOrdered By: Chris Pierre on 08-02-2023 Albumin/Globulin [Mass ratio] 2.1 {ratio} [facility] Serum or plasma anion gap de terminationOrdered By: Chris Pierre on 08-02-2023 Anion gap [Moles/Vol] 9.4 mmol/L 6.0-15.0 [facility] Serum or plasma high density lipoprotein (HDL) cholesterol measurementOrdered By: Chris Pierre on 08-02-2023 Cholesterol in HDL [Mass/Vol] 39 mg/dL 23- [facility] Comment on above: HDL CHOL ATP-III CLA SSIFICATION Cardiovascular RiskHDL > or equal to 60 mg/dL LOWHDL < 40 mg/dL HIGH Serum or plasma total choles terol/high density lipoprotein (HDL) cholesterol mass ratOrdered By: Chris Pierre on 08-02-2023 Cholesterol.total/Chol esterol in HDL [Mass ratio] 3.3 {ratio} <5.0 [facility] Sodium [Moles/volume] in Ser um or PlasmaOrdered By: Chris Pierre on 08-02-2023 Sodium [Moles/Vol] 140 mmol/L 136-145 [facility] Triglyceride [Mass/volume] i n Serum or PlasmaOrdered By: Chris Pierre on 08-02-2023 Triglyceride [Mass/Vol] 183 mg/dL 0-149 [facility] Comment on above: TRIG ATP III CLASSIF ICATIONTRIG less than 150 mg/dL NormalTRIG 150-199 mg/dL Borderline highTRIG 200-500 mg/dL High TRIG greater than 500 mg/dL Very highStandard traceable to the Center for Disease Conrtrol and Prevention (CDC) test method. Urea nitrogen [Mass/volume] in Serum or PlasmaOrdered By: Chris Pierre on 08-02-2023 Urea nitrogen [Mass/Vol] 17 mg/dL - [facility] WBC Auto (Bld) [#/Vol]Ordere d By: Chris Pierre on 08-02-2023 WBC (Bld) [#/Vol] 6.4 10*3/uL 4.1-10.5 [facility] Lab Reportson 07-19-2023 Lab Reports [id number] Normal [facility] Lab Reports [id number] Normal [facility] 24 hour urine sodium measure ment (moles/time)Ordered By: Jesusita Small on 07-09-2023 Sodium (24H U) [Moles/Time] 323 mmol/24 40-220 [facility] 24 hour urine uric acid evelyn urement (mass/time)Ordered By: Jesusita Small on 07-09-2023 Urate (24H U) [Mass/Time] 716.8 mg/24 hr 136.1-771. 1 [facility] Comment on above: Performed at: - Departing [address] [id number] Director: Rc Chavez PhD, Phone: [phone] CT biopsyOrdered By: Jesusita Small on 07-09-2023 CT biopsy 24 Hours [facility] Calcium [Mass/time] in 24 ho ur UrineOrdered By: Jesusita Small on 07-09-2023 Calcium (24H U) [Mass/Time] 145 mg/24 hr 0-320 [facility] Calcium [Mass/volume] in 24 hour UrineOrdered By: Jesusita Small on 07-09-2023 Calcium (24H U) [Mass/Vol] 7.3 mg/dL Not Estab. [facility] Creatinine [Mass/volume] in UrineOrdered By: Jesusita Small on 07-09-2023 Creatinine (U) [Mass/Vol] 80.00 mg/dL 14.00-26.0 0 [facility] Magnesium [Mass/time] in 24 hour UrineOrdered By: Jesusita Small on 07-09-2023 Magnesium (24H U) [Mass/Time] 104.9 mg/24 hr 12.0-293.0 [facility] Magnesium [Mass/volume] in U rineOrdered By: Jesusita Small on 07-09-2023 Magnesium (U) [Mass/Vol] 5.3 mg/dL Not Estab. [facility] No Panel InformationOrdered By: Jesusita Small on 07-09-2023 Urine Citric Acid 239 mg/L Undefined [facility] Comment on above: This test was mayelin robles and its performance characteristicsdetermined by [facility]. It has not been cleared orapproved by the Food and Drug Administration. Urine Citric Acid 24 Hour 473 mg/24 hr 320-1240 [facility] Comment on above: Performed at: - L [address] [id number] Director: Lorena Carrillo MD, Phone: [phone] Urine Creatinine 24 Hour 1.58 g/24 hr 1.00-2.09 [facility] Oxalate [Mass/time] in 24 ho ur UrineOrdered By: Jesusita Small on 07-09-2023 Oxalate (24H U) [Mass/Time] 18 mg/24 hr 7-44 [facility] Comment on above: Performed at: - L [address] [id number] Director: Lorena Carrillo MD, Phone: [phone] Oxalate [Mass/volume] in Uri neOrdered By: Jesusita Small on 07-09-2023 Oxalate (U) [Mass/Vol] 9 mg/L Undefined [facility] Phosphate [Mass/time] in 24 hour UrineOrdered By: Jesusita Small on 07-09-2023 Phosphate (24H U) [Mass/Time] 847 mg/24 hr 390-1425 [facility] Phosphate [Mass/volume] in U rineOrdered By: Jesusita Small on 07-09-2023 Phosphate (U) [Mass/Vol] 42.8 mg/dL Not Estab. [facility] Sodium [Moles/volume] in Uri neOrdered By: Jesusita Small on 07-09-2023 Sodium (U) [Moles/Vol] 163.0 mmol/L [facility] Comment on above: No reference range e stablished Urine uric acid measurement (mass/volume)Ordered By: Jesusita Small on 07-09-2023 Urate (U) [Mass/Vol] 36.2 mg/dL Not Estab. [facility] Urine volume measurementOrde red By: Jesusita Small on 07-09-2023 Specimen volume (U) 1980 ml [facility] Ambulatory Visit Summaryon 1 Ambulatory Visit Summary JESSENIA PYLE :1945 Visit Date:06/10/2023 Ambulatory Visit Instructions Your Diagnosis Kidney stone BPH with urinary obstruction Tests Performed Urnls Dip Stick Auto w/o Microscopy POC 27733 XR Abdomen 1 View -- Results Pending -- Please visit your patient portal for your results or contact your primary care physician. Your Care Team Attending Physician - STACI HALEY, Jesusita Payan Primary Care Physician - CHRIS PIERRE DO This Is Your Medications List potassium citrate (Urocit-K 15 mEq oral tablet, extended release) tamsulosin (Flomax 0.4 mg Cap) Contact prescribing physician if questions or concerns albuterol amlodipine (amLODIPine 5 mg Tab) aspirin (aspirin 81 mg oral tablet) doxazosin (doxazosin 2 mg Tab) ezetimibe (ezetimibe 10 mg Tab) fluticasone (fluticasone propionate) isosorbide mononitrate (isosorbide mononitrate 30 mg ER Tab) multivitamin rosuvastatin (Crestor 20 mg Tab) Procedures Performed Arthroscopy of knee (10/02/2019), Lithotripsy (03/03/2010), Cystourethroscopy with ureteroscopy and pyeloscopy (04/18/2006), TURP - Transurethral resection of prostate (04/09/2001), Bone spur of left foot, Colonoscopy, Tonsillectomy, Vasectomy. Discharge Vitals Heart Rate (Peripheral) 71 Respiratory Rate 16 Blood Pressure 138/73 Height 187 cm Height 74 in Weight 99 kg Weight 217.8 lb BMI 28.31 What to do next You Need to Schedule the Following Appointments Follow Up with STACI HALEY, Jesusita Payan, RITCHIE When: Comments: 1 yr Where: [facility] [address] , [place] [phone] Medications What How Much When Instructions Unchanged potassium citrate (Urocit-K 15 mEq oral tablet, extended release) 2 Tablets By Mouth 2 times a day Unchanged tamsulosin (Flomax 0.4 mg Cap) 1 Capsules By Mouth Every day Take one tab qhs Unchanged albuterol Contact prescribing physician if questions or concerns Unchanged amlodipine (amLODIPine 5 mg Tab) 1 Tablets By Mouth Every day Contact prescribing physician if questions or concerns Unchanged aspirin (aspirin 81 mg oral tablet) 1 Tablets By Mouth Every day Contact prescribing physician if questions or concerns Unchanged doxazosin (doxazosin 2 mg Tab) Contact prescribing physician if questions or concerns Unchanged ezetimibe (ezetimibe 10 mg Tab) By Mouth Every day Contact prescribing physician if questions or concerns Unchanged fluticasone (fluticasone propionate) Inhalation Contact prescribing physician if questions or concerns Unchanged isosorbide mononitrate (isosorbide mononitrate 30 mg ER Tab) 1 Tablets By Mouth Once a day (in the morning) heart Contact prescribing physician if questions or concerns Unchanged multivitamin Contact prescribing physician if questions or concerns Unchanged rosuvastatin (Crestor 20 mg Tab) 1 Tablets By Mouth Every day Contact prescribing physician if questions or concerns Test Results Urnls Dip Stick Auto w/o Microscopy POC 08013 (06/10/2023) Bilirubin Urine Dipstick - Negative Blood Urine Dipstick - Negative Glucose Urine Dipstick - Trace 100 mg/dl Ketones Urine Dipstick - Negative Leukocytes Urine Dipstick - Negative Nitrite Urine Dipstick - Negative Protein Urine Dipstick - Negative Specific [place] Urine Dipstick - 1.025 Urine Appearance Urine Dipstick - Clear Urine Color Urine Dipstick - Yellow Urobilinogen Urine Dipstick - Normal 0.2-1 EU/dl pH Urine Dipstick - 5.5 Allergies atorvastatin (Muscle pain) cerivastatin (Muscle pain) colesevelam (Unknown) ezetimibe (Muscle pain) fluvastatin (Muscle pain) metaxalone (Unknown) simvastatin (Muscle pain) Problems Ongoing - Any problem that you are currently receiving treatment for. Benign prostatic hyperplasia (BPH) with post-void dribbling BPH with urinary obstruction Elevated cholesterol Elevated PSA Feeling of incomplete bladder emptying GI bleed Hypertension Kidney stone Left epididymitis Nephrolithiasis Nocturia Retrograde ejaculation Testicle pain Urine frequency Patient Survey You may receive a survey via text or e-mail asking about your office visit. Please share your experience with us by completing your survey. We appreciate your feedback and thank you for choosing us for your care. Education Materials Kidney Stones Kidney stones are solid, rock-like deposits that form inside of the kidneys. The kidneys are a pair of organs that make urine. A kidney stone may form in a kidney and move into other parts of the urinary tract, including the tubes that connect the kidneys to the bladder (ureters), the bladder, and the tube that carries urine out of the body (urethra). As the stone moves through these areas, it can cause intense pain and block the flow of urine. Kidney stones are created when high levels of certain minerals are found in the urine. The stones are usually passed out of the body throu (more content not included)... Normal [facility] Patient Educationon 06-10-20 23 Patient Education Urology Kidney Stones Kidney stones are solid, rock-like deposits that form inside of the kidneys. The kidneys are a pair of organs that make urine. A kidney stone may form in a kidney and move into other parts of the urinary tract, including the tubes that connect the kidneys to the bladder (ureters), the bladder, and the tube that carries urine out of the body (urethra). As the stone moves through these areas, it can cause intense pain and block the flow of urine. Kidney stones are created when high levels of certain minerals are found in the urine. The stones are usually passed out of the body through urination, but in some cases, medical treatment may be needed to remove them. What are the causes? Kidney stones may be caused by: ? A condition in which certain glands produce too much parathyroid hormone (primary hyperparathyroidism), which causes too much calcium buildup in the blood. ? A buildup of uric acid crystals in the bladder (hyperuricosuria). Uric acid is a chemical that the body produces when you eat certain foods. It usually exits the body in the urine. ? Narrowing (stricture) of one or both of the ureters. ? A kidney blockage that is present at (congenital obstruction). ? Past surgery on the kidney or the ureters, such as gastric bypass surgery. What increases the risk? The following factors may make you more likely to develop this condition: ? Having had a kidney stone in the past. ? Having a family history of kidney stones. ? Not drinking enough water. ? Eating a diet that is high in protein, salt (sodium), or sugar. ? Being overweight or obese. What are the signs or symptoms? Symptoms of a kidney stone may include: ? Pain in the side of the abdomen, right below the ribs (flank pain). Pain usually spreads (radiates) to the groin. ? Needing to urinate frequently or urgently. ? Painful urination. ? Blood in the urine (hematuria). ? Nausea. ? Vomiting. ? Fever and chills. How is this diagnosed? This condition may be diagnosed based on: ? Your symptoms and medical history. ? A physical exam. ? Blood tests. ? Urine tests. These may be done before and after the stone passes out of your body through urination. ? Imaging tests, such as a CT scan, abdominal X-ray, or ultrasound. ? A procedure to examine the inside of the bladder (cystoscopy). How is this treated? Treatment for kidney stones depends on the size, location, and makeup of the stones. Kidney stones will often pass out of the body through urination. You may need to: ? Increase your fluid intake to help pass the stone. In some cases, you may be given fluids through an IV and may need to be monitored at the hospital. ? Take medicine for pain. ? Make changes in your diet to help prevent kidney stones from coming back. Sometimes, medical procedures are needed to remove a kidney stone. This may involve: ? A procedure to break up kidney stones using: ? A focused beam of light (laser therapy). ? Shock waves (extracorporeal shock wave lithotripsy). ? Surgery to remove kidney stones. This may be needed if you have severe pain or have stones that block your urinary tract. Follow these instructions at home: Medicines ? Take [id number]-sthyona and prescription medicines only as told by your health care provider. ? Ask your health care provider if the medicine prescribed to you requires you to avoid driving or using heavy machinery. Eating and drinking ? Drink enough fluid to keep your urine pale yellow. You may be instructed to drink at least 8?10 glasses of water each day. This will help you pass the kidney stone. ? If directed, change your diet. This may include: ? Limiting how much sodium you eat. ? Eating more fruits and vegetables. ? Limiting how much animal protein?such as red meat, poultry, fish, and eggs?you eat. ? Follow instructions from your health care provider about eating or drinking restrictions. General instructions ? Collect urine samples as told by your health care provider. You may need to collect a urine sample: ? 24 hours after you pass the stone. ? 8?12 weeks after passing the kidney stone, and every 6?12 months after that. ? Strain your urine every time you urinate, for as long as directed. Use the strainer that your health care provider recommends. ? Do not throw out the kidney stone after passing it. Keep the stone so it can be tested by your health care provider. Testing the makeup of your kidney stone may help prevent you from getting kidney stones in the future. ? Keep all follow-up visits as told by your health care provider. This is important. You may need follow-up X-rays or ultrasounds to make sure that your stone has passed. How is this prevented? To prevent another kidney stone: ? Drink enough fluid to keep your urine pale yellow. This is the best way to prevent kidney stones. ? Eat a healthy diet and follow (more content not included)... Normal [facility] Urology Office/Clinic Noteon 06-10-2023 Urology Office/Clinic Note Chief Complaint 1yr KUB HPI Staff 78 yo male here for 1 yr f/u with KUB. Previous Dx: BPH with obstruction, kidney stone, elevated PSA, nocturia, retrograde ejaculation. S/p TURP 04/09/01. Stopped PSA checks at prior OV due to age. Taking Urocit-K 15mEq bid & Flomax 0.4mg qd therapy. Now also taking Doxazosin from [employer]. [place] [facility] No more recent image. BMP 03/07/23 Denies current flank pain. 6-7months ago did pass a large stone. Still getting up a couple times a night. Denies all urinary concerns at this time. History of Present Illness Tests reviewed: reviewed UA, KUB I have reviewed the previous health record information and history for this patient from Dr. Small. I have reviewed and verified the staff HPI to be accurate for this encounter. Review of Systems PHQ Score Initial Depression Screen Score: 0 ROS - Provider Constitutional: denies weight loss, denies hot flashes. Eyes: denies eye problems. Gastrointestinal: denies nausea, denies vomiting. Cardiovascular: denies chest pain or angina. Integumentary: no dryness Musculoskeletal: denies musculoskeletal symptoms. ENMT: denies otolaryngeal symptoms. Respiratory: no shortness of breath. Heme/Lymph: denies easy bleeding tendency, denies easy bruising tendency. Psychiatric: no confusion, no anxiety. Genitourinary: See HPI. Physical Exam Vitals & Measurements HR: 71(Peripheral) RR: 16 BP: 138/73 HT: 74 in HT: 187 cm WT: 99 kg WT: 217.8 lb BMI: 28.31 General Appearance: alert, no distress, well nourished, well developed male. Genitourinary: normal scrotum, normal testes, normal urethra, normal epididymis, normal vas deferens/spermatic cord. Flank Pain: none. Bladder: nonpalpable. Assessment/Plan 1. Kidney stone (N20.0: Calculus of kidney) S/p R ESWL 03/16/21. KUB 04/24/[place] [facility] [place] several small stones at [facility], measuring up to 4mm. Passed two stones in October and was able to catch them. Advised pt if he has another stone episode to increase Tamsulosin to bid during that time. Denies flank pain at this time. Continues taking Urocit-K 15mEq bid (morning and night). Discussed repeating a 24hr urine. Pt agrees with this plan. 2. BPH with urinary obstruction (N40.1: Benign prostatic hyperplasia with lower urinary tract symptoms) S/p TURP 2010. Stopped checking PSA at prior OV due to advancing age and low levels. Taking Tamsulosin 0.4mg qd. UA today negative for blood and infection. Follow up in 1 year or sooner if needed. All questions/concerns were discussed. Pt to call the office if he encounters any issues prior. Pt acknowledges understanding. Follow-up With When Contact Information STACI HALEY, Jesusita Payan, [facility] [address], [place] [address]- [phone] Additional Instructions: 1 yr Patient Education Kidney Stones IVijaya, personally scribed for Dr. Small on 06/10/2023 11:49:47. . Documentation recorded by the scribeVijaya, accurately reflects the services(s) I performed and decisions made by me. Authenticated by Dr. Small on 06/10/2023 11:51:48. 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 Medications albuterol amLODIPine 5 mg Tab, 5 mg= 1 tab(s), Oral, Daily aspirin 81 mg oral tablet, 81 mg= 1 tab(s), Oral, Daily Crestor 20 mg Tab, 20 mg= 1 tab(s), Oral, Daily doxazosin 2 mg Tab ezetimibe 10 mg Tab, Oral, Daily Flomax 0.4 mg Cap, 0.4 mg= 1 cap(s), Oral, Daily fluticasone propionate, Inhalation isosorbide mononitrate 30 mg ER Tab, 30 mg= 1 tab(s), Oral, qAM multivitamin Urocit-K 15 mEq oral tablet, extended release, 30 mEq= 2 tab(s), Oral, BID, 3 refills Allergies atorvastatin (Muscle pain) cerivastatin (Muscle pain) colesevelam (Unknown) ezetimibe (Muscle pain) fluvastatin (Muscle pain) metaxalone (Unknown) simvastatin (Muscle pain) Social History Alcohol Current, 3-5 times per week, 05/01/2019 Substance Abuse - No Risk, 09/23/2019 Tobacco Never (less than 100 in lifetime) Tobacco Use:. Never Smokeless Tobacco Use:. Household tobacco concerns: No. Yes, 06/10/2023 Family History Heart disease: Father. Stroke: Mother. Immunizations Vaccine Date Status Comments influenza virus vaccine, inactivated 05/01/2023 Recorded influenza virus vaccine, i (more content not included)... Normal [facility] Comment on above: Result Comment: Elec tronically Signed By: Jesusita SMALL MD\.br\Date and Time Signed: 06/10/23 11:51 EDT\.br\Electronically Co-Signed By: Vijaya Hastings.br\Date and Time Co-Signed: 06/10/23 11:51 EDT Tobacco Screening.on 023 Fall risk assessment a) No falls within the last year [facility] [employer] 250 DO Work Phone: Tobacco use status CPHS b) [facility] [employer] 250 DO Work Phone: [facility] CARDIAC STRESS/REST INJE CTIONon 04-10-2023 [facility] CARDIAC STRESS/REST INJECTION Patient Name: JESSENIA PYLE STUDY: MYOCARDIAL PERFUSION STRESS TEST WITH LEXISCAN Performing facility: [facility], [address] [place] [address], [address], [place] [address] [facility] Provider: Shantih Lancaster MD, [facility] PCP: Dr. Oracio Pierre Supervising provider: Jethro Bernardo MD, FAC INDICATION: Chest Pain; SOB; HISTORY: Gender: M; Age: 78 y/o ; Height: 187.96 cm; Weight: 102.14037 kg. Diabetes; High Cholesterol; HTN; Chest Pain; SOB; Quit smoking 51 years ago. Cardiac catheterization on 2011. COMPARISON: Previous nuclear testing completed at [facility]. ACCESSION NUMBER(S): [id number]; [id number]; [id number] ORDERING CLINICIAN: SHANTHI LANCASTER TECHNIQUE: ONE DAY protocol. Stress injection: Date:04-10-23, 33.5 mCi of Myoview IV 20 seconds after rapid injection of Lexiscan. Rest injection: Date: 04-10-23, 11.4 mCi of Myoview IV at rest. The patient had a rapid injection of 0.4 mg of Lexiscan IV over 10 seconds. Imaging was performed by gated tomographic technique. Reason for Lexiscan: SOB STRESS TEST DATA: Resting heart rate was 66 BPM. Resting blood pressure was 130/86 mmHg. Peak blood pressure was 122/68 mmHg. Peak heart rate was 86 BPM. TEST TERMINATED DUE TO: Protocol completed FINDINGS: STRESS TEST RESULTS: Resting electrocardiogram revealed normal sinus rhythm. There were no significant ischemic ECG changes or dysrhythmias. The patient did not have chest pains/symptoms during procedure. There was a normal recovery phase. IMAGING RESULTS: Image quality was good. Rest and stress tomographic images were reviewed and revealed normal perfusion without evidence of ischemia, myocardial infarction, or left ventricular dilatation with stress. Overall left ventricular systolic function appeared to be normal without regional wall motion abnormalities. Ejection fraction was 77%. TID is 0.97 and is normal. There was no evidence of attenuation artifact. IMPRESSION: Normal Lexiscan Myoview cardiac perfusion stress test. No evidence of ischemia or myocardial infarction by perfusion imaging. Normal left ventricular systolic function, ejection fraction 77%. When compared to a study from December 2021, no interval changes are seen. 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) (I25.10) Essential hypertension (401.9) (I10) Hyperglycemia (790.29) (R73.9) Medication course changed (V58.69) (Z79.899) Hyperkalemia (276.7) (E87.5) Former smoker (V15.82) (Z87.891) quit 1972 Overweight with body mass index (BMI) of 28 to 28.9 in adult (278.02,V85.24) (E66.3,Z68.28) Chest pain, unspecified type (786.50) (R07.9) Shortness of breath (786.05) (R06.02) Orders Chest pain, unspecified type, Shortness of breath NM Cardiac Stress/Rest Nuclear Med Order; Status:Hold For - Scheduling,Retrospective Authorization; Requested for:[id number]; Radiologist to Determine Optimal Study : Y What are the patient's signs and symptoms? : chest pain- sob Essential hypertension Start: Bisoprolol-hydroCHLOROthiaz gilma 10-6.25 MG Oral Tablet; TAKE 1 TABLET DAILY Overweight with body mass index (BMI) of 28 to 28.9 in adult Healthy Weight Tips; Status:Complete - Retrospective Authorization; Done: [id number] Some eating tips that can help you lose weight.; Status:Complete - Retrospective Authorization; Done: 21Mar2023 SocHx: Former smoker Tobacco Use Screening; Status:Complete; Done: [id number] Patient Instructions Please bring all medicines, vitamins, and herbal supplements with you when you come to the office. Prescriptions will not be filled unless you are compliant with your follow up appointments or have a follow up appointment scheduled as per instruction of your physician. Refills should be requested at the time of your visit. Amlodipine to be taken at lunch time. Stop Triamterene-hctz Restart Bisoprolol-hydrochlorothiaz gilma Follow up after testing completed Chief Complaint JESSENIA PYLE is being seen for a 1 month follow-up of discuss symptoms. History of Present Illness Patient is accompanied by to the office. Patient reports that blood pressures tend to be up-and-down, and they are escalating in the mid to late today, sometimes diastolics are in excess of 100. Reports that he was denied blood donation because of elevated blood pressure Reviewed laboratory data potassium 5.2. On potassium citrate to prevent kidney stones says cough is better patient says he still coughing particularly in the morning. Sometimes he has difficulty expectorating, and feels like there was carotid in the back of his throat. No dysphagia. No clear symptoms of GERD. I reviewed extensive blood pressure logs from home. They are overall suboptimally controlled, but I do not see readings much in excess of 150 systolic. Patient reports that primary MD has called in a prescription for losartan. Patient's cough is multifactorial, and is significantly better of MICHELLE inhibitors and angiotensin receptor blockers. Patient's heart rate has increased with discontinuation of bisoprolol, but patient says that his shortness of breath is still very concerning to him. Patient expressed retrosternal chest discomfort on 2 occasions while he was relaxing. No chest discomfort with exercise. Laboratory data from March 07, 2023 was reviewed. History so far ; 1. Hypertension 2. Hyperlipidemia-on rosuvastatin, triglycerides elevated, recently ezetimibe was added. 3. Patient reports that he sometimes gets achy muscles with statins. 4. Lexiscan Myoview December 2021-normal perfusion LVEF 73% transient ischemic dilatation 0.92 which is normal no evidence of attenuation artifact 5. Cardiac catheterization July 2012-LVEDP 0 to 14 mmHg no gradient across the aortic valve LVEF 55 to 60% 30% mid LAD first obtuse marginal branch 70% stenosis small caliber vessel RCA without significant disease medical management recommended 6. Intolerance to several statins-currently tolerating rosuvastatin 20 mg daily without untoward effects 7. Ex-smoker, quit about 40 years ago 8. Pulmonary function testing November 2022-normal diffusion capacity evidence of mild restriction without obvious obstruction no significant bronchodilator response no obvious air trapping or hyperinflation. Diffusion capacity is adjusted for alveolar volume, it is supra normal. 9. Possible intolerance to MICHELLE inhibitors and/or angiotensin receptor blockers-cough could be related to this or partly related to this 10. Patient is on albuterol inhaler, he says it does not make any difference in his breathing, if he has underlying reactive airway disease, could bisoprolol be a contributing factor to his shortness of breath? 11. Could bisoprolol be causing chronotropic blunting. Patient says his knee is getting a little bit better, but he is very hesitant to walk on a treadmill at this time. 12. Inaccurate medication list. 13. Echocardiogram January 09, 2023-left atrium 4.3 cm LV wall thickness 1.3/1.4 cm LV end-systolic diameter 3.1 cm RV systolic pressure 25 mmHg TAPSE 2.3 IVC normal 14. BNP level January 11 (more content not included)... Normal [employer] Tobacco Screening.on 023 Fall risk assessment a) No falls within the last year [facility] 250 DO Work Phone: Tobacco use status CPHS b) No [facility] 250 DO Work Phone: Calcium [Mass/volume] in Ser um or PlasmaOrdered By: Shanthi Lancaster on 03-07-2023 Calcium [Mass/Vol] 9.7 mg/dL 8.6-10.3 [facility] Carbon dioxide, total [Moles /volume] in Serum or PlasmaOrdered By: Shanthi Lancaster on 03-07-2023 CO2 [Moles/Vol] 30.6 mmol/L 21.0-31.0 [facility] Chloride [Moles/volume] in S claudia or PlasmaOrdered By: Shanthi Lancaster on 03-07-2023 Chloride [Moles/Vol] 102 mmol/L 98-107 [facility] Creatinine [Mass/volume] in Serum or PlasmaOrdered By: Shanthi Lancaster on 03-07-2023 Creatinine [Mass/Vol] 1.01 mg/dL 0.70-1.30 [facility] Glucose [Mass/volume] in Ser um or PlasmaOrdered By: Shanthi Lancaster on 03-07-2023 Glucose [Mass/Vol] 216 mg/dL 70-100 [facility] Comment on above: ADA recommended refe rence rangeRandom Glucose Reference Range is dependent on time and content of last meal. Glucose of more than 200 mg/dL in a nonstressed, ambulatory subject supports the diagnosis of Diabetes Mellitus. No Panel InformationOrdered By: Shanthi Lancaster on 03-07-2023 Estimated GFR (CKD-EPI) > 60.0 mL/Min [facility] Creatinine Clearance (Chem N/A [facility] No Panel Informationon 03-07 > 60.0 Normal [facility] 250 DO Work Phone: 10.6\S\10.6 Normal 6.0-15.0 [facility] 250 DO Work Phone: 9.7\S\9.7 Normal 8.6-10.3 [facility] 250 DO Work Phone: Comment on above: PERFORMED BY:[facility] [place] [place], [place] [id number] MEDICAL DIRECTORGWEN CRUZ M.D. 30.6\S\30.6 Normal 21.0-31.0 [facility] 250 DO Work Phone: 102\S\102 Normal 98-107 [facility] 250 DO Work Phone: 5.2\S\5.2 above high threshold 3.5-5.1 [facility] 250 DO Work Phone: 138\S\138 Normal 136-145 [facility] 250 DO Work Phone: 1.01\S\1.01 Normal 0.70-1.30 [facility] 250 DO Work Phone: 20\S\20 Normal 7-25 [facility] 250 DO Work Phone: 216\S\216 above high threshold 70-100 [facility] 250 DO Work Phone: Comment on above: Random Glucose Refer ence Range is dependent on time and content of last meal. Glucose of more than 200 mg/dL in a nonstressed, ambulatory subject supports the diagnosis of Diabetes Mellitus. ADA recommended reference range Potassium [Moles/volume] in Serum or PlasmaOrdered By: Shanthi Lancaster on 03-07-2023 Potassium [Moles/Vol] 5.2 mmol/L 3.5-5.1 [facility] Serum or plasma anion gap de terminationOrdered By: Shanthi Lancaster on 03-07-2023 Anion gap [Moles/Vol] 10.6 mmol/L 6.0-15.0 [facility] Sodium [Moles/volume] in Ser um or PlasmaOrdered By: Shanthi Lancaster on 03-07-2023 Sodium [Moles/Vol] 138 mmol/L 136-145 [facility] Urea nitrogen [Mass/volume] in Serum or PlasmaOrdered By: Shanthi Lancaster on 03-07-2023 Urea nitrogen [Mass/Vol] 20 mg/dL 7-25 [facility] Office Visit (Cardiology)on 02-21-2023 Follow-up visit Diagnoses/Problems Assessed 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) (I25.10) Cough (786.2) (R05.9) Encounter to discuss test results (V65.49) (Z71.2) Essential hypertension (401.9) (I10) Former smoker (V15.82) (Z87.891) quit 1971 Normal cardiac ejection fraction Shortness of breath (786.05) (R06.02) MICHELLE inhibitor intolerance (995.27,E980.4) (Z78.9) Chronotropic incompetence (426.89) (I45.89) ARB intolerance (995.27) (Z78.9) Overweight with body mass index (BMI) of 29 to 29.9 in adult (278.02,V85.25) (E66.3,Z68.29) Orders 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, Essential hypertension, Hyperlipidemia Renew: Isosorbide Mononitrate ER 30 MG Oral Tablet Extended Release 24 Hour; Take 1 tablet daily Essential hypertension Renew: Doxazosin Mesylate 4 MG Oral Tablet; TAKE 1 TABLET DAILY Renew: Triamterene-HCTZ 37.5-25 MG Oral Tablet (Maxzide-25); TAKE 1/2 TABLET DAILY Overweight with body mass index (BMI) of 29 to 29.9 in adult Healthy Weight Tips; Status:Complete; Done: [id number] Some eating tips that can help you lose weight.; Status:Complete; Done: [id number] SocHx: Former smoker Tobacco Use Screening; Status:Complete; Done: [id number] Unlinked Stop: Doxazosin Mesylate 2 MG Oral Tablet Stop: Potassium Citrate ER 15 MEQ (1620 MG) Oral Tablet Extended Release Patient Instructions Please bring all medicines, vitamins, and herbal supplements with you when you come to the office. Prescriptions will not be filled unless you are compliant with your follow up appointments or have a follow up appointment scheduled as per instruction of your physician. Refills should be requested at the time of your visit. Follow up in 4 months Chief Complaint JESSENIA PYLE is being seen for a consultation for GXT. History of Present Illness Patient was most recently seen in January 2023. Accompanied by to the office. At last office visit we ordered a respiratory panel blood work, we have been now off the angiotensin receptor jewel. Cough is improved off angiotensin receptor jewel, continues to have shortness of breath and fatigue. Intolerance to several statins Respiratory panel was negative. BNP level was normal at 50. GFR is greater than 60 sodium 141 potassium 4.7, AST and ALT are slightly elevated total cholesterol 131 HDL 44, triglycerides 134 TSH 0.76 LDL 60 Treadmill stress test shows severe chronotropic incompetence. History so far ; 1. Hypertension 2. Hyperlipidemia-on rosuvastatin, triglycerides elevated, recently ezetimibe was added. 3. Patient reports that he sometimes gets achy muscles with statins. 4. Lexiscan Myoview December 2021-normal perfusion LVEF 73% transient ischemic dilatation 0.92 which is normal no evidence of attenuation artifact 5. Cardiac catheterization July 2012-LVEDP 0 to 14 mmHg no gradient across the aortic valve LVEF 55 to 60% 30% mid LAD first obtuse marginal branch 70% stenosis small caliber vessel RCA without significant disease medical management recommended 6. Intolerance to several statins-currently tolerating rosuvastatin 20 mg daily without untoward effects 7. Ex-smoker, quit about 40 years ago 8. Pulmonary function testing November 2022-normal diffusion capacity evidence of mild restriction without obvious obstruction no significant bronchodilator response no obvious air trapping or hyperinflation. Diffusion capacity is adjusted for alveolar volume, it is supra normal. 9. Possible intolerance to MICHELLE inhibitors and/or angiotensin receptor blockers-cough could be related to this or partly related to this 10. Patient is on albuterol inhaler, he says it does not make any difference in his breathing, if he has underlying reactive airway disease, could bisoprolol be a contributing factor to his shortness of breath? 11. Could bisoprolol be causing chronotropic blunting. Patient says his knee is getting a little bit better, but he is very hesitant to walk on a treadmill at this time. 12. Inaccurate medication list. 13. Echocardiogram January 09, 2023-left atrium 4.3 cm LV wall thickness 1.3/1.4 cm LV end-systolic diameter 3.1 cm RV systolic pressure 25 mmHg TAPSE 2.3 IVC normal 14. BNP level January 2023 ,50, respiratory panel negative, chest x-ray no pulmonary vascular congestion 15 treadmill stress test January 2023-4 minutes 39 seconds, 68% age-predicted maximum heart rate, maximum workload 6.50 METS. BNP level does not suggest heart failure chronotropic blunting is very significant and may account for some of the shortness of breath. Moreover if patient has a reactive airway disease component, beta-blockers could be exacerbating that. Recommendations: 1. Discontinue bisoprolol hydrochlorothiazide 2. Increase doxazosin to 4 mg p.o. daily 3. I wanted him to discontinue the potassium, subsequently he called and told us that the potassium citrate is for prevention of kidney stones, so we reinstituted it 4. Basic (more content not included)... Normal [place] Tobacco Screening.on 023 Adult depression screening assessment No [facility] [employer] 250 DO Work Phone: Fall risk assessment a) No falls within the last year [facility] [employer] 250 DO Work Phone: Tobacco use status CP b) No [facility] DO Work Phone: Cardiac Stress Teston 2022 Cardiac Stress Test [facility] scar [address] [place] [address], [address] [place] [address] Exercise Stress Test Patient Name: JESSENIA Ordering Physician: Tonny PYLE Study Date: 02/06/2023 Reading Physician: [id number] Jethro Bernardo MD, [facility] MRN/PID: [id number] Supervising [id number] Jethro Bernardo MD, Physician: [facility] Accession/Order#: [id number] Referring Physician: SHANTHI LANCASTER Date of : 1945 PCP: Anand Pierre MD Gender: M Fellow: Height: 187.96 cm Nurse: Fouzia Ponce RN Weight: 105.24 kg Channel Development Manager: HANNAH BSA: 2.31 m2 Technologist: BMI: 29.79 kg/m2 Additional Staff: Age: 77 years cc report to: Patient Location: cc report to: Tonny Study Type: Cardiac Stress Test Diagnosis/ICD: R06.02-Shortness of breath Indication: Dyspnea Procedure/CPT: Stress Test Interpretation-[id number]; Stress Test Supervision-[id number] Falls Risk: Low: Patient has low risk for sustaining a fall; environmental safety interventions in place. Study Details: Correct procedure and correct patient verified verbally. Patient Performance: The patient exercised to stage II on a Shekhar protocol for 4 minutes and 39 seconds, achieving 6.50 METS. The resting blood pressure was 136/82 mmHg with a heart rate of 65 bpm. The standing blood pressure was 128/86 mmHg with a heart rate of 69 bpm. The patient's functional capacity was average. The patient developed dyspnea during the stress exam. The symptoms resolved with rest. The blood pressure response was normal. The test was terminated due to: dyspnea. Baseline ECG: Resting ECG showed normal sinus rhythm. Stress Stage Data: + +--+----- -+-------+ HR Sys BP Pathak BP + +--+----- -+-------+ Baseline Resting 65 136 82 + +--+----- -+-------+ Baseline Standing 69 128 86 + +--+----- -+-------+ Stage I 93 138 78 + +--+----- -+-------+ Stage II 99 154 76 + +--+----- -+-------+ Recovery ECG: The heart rate recovery was normal. + +--+------+--- ----+ HR Sys BP Pathak BP + +--+------+--- ----+ Recovery I 88 154 76 + +--+------+--- ----+ Recovery II 79 148 82 + +--+------+--- ----+ Recovery III 66 142 86 + +--+------+--- ----+ Recovery IV 70 132 82 + +--+------+--- ----+ Summary: 1. 1_nondiagnostic exercise tolerance test after completing 4 minutes and 39 seconds on a Shekhar protocol achieving only 68% of predicted maximal heart rate and workload of 6.5 METS. The pressure koko to 154/76 mmHg. The test ended due to dyspnea. Failure to achieve target heart rate of 85% of predicted maximal heart rate reduces the sensitivity of the stress test in detecting myocardial ischemia 2_no chest pain, ischemic ST segment abnormalities or cardiac arrhythmias induced by submaximal stress test. Extremely limited exercise tolerance for age If ischemic heart disease is suspected a pharmacological nuclear stress test will be needed to address the question. 2. Adequate level of stress achieved. 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) (I25.10) Former smoker (V15.82) (Z87.891) quit 1972 Cough (786.2) (R05.9) Shortness of breath (786.05) (R06.02) Arterial hypotension (458.9) (I95.9) Encounter to discuss test results (V65.49) (Z71.2) Overweight with body mass index (BMI) of 29 to 29.9 in adult (278.02,V85.25) (E66.3,Z68.29) Orders Arterial hypotension, Essential hypertension Renew: Bisoprolol-hydroCHLOROthiaz gilma 5-6.25 MG Oral Tablet; TAKE 1 TABLET DAILY Overweight with body mass index (BMI) of 29 to 29.9 in adult Healthy Weight Tips; Status:Complete - Retrospective Authorization; Done: 04Feb2023 Some eating tips that can help you lose weight.; Status:Complete - Retrospective Authorization; Done: 04Feb2023 Shortness of breath Cardiac Stress Test; Status:Hold For - Scheduling,Retrospective Authorization; Requested for:04Feb2023; SocHx: Former smoker Tobacco Use Screening; Status:Complete; Done: 04Feb2023 Patient Instructions Please bring all medicines, vitamins, and herbal supplements with you when you come to the office. Prescriptions will not be filled unless you are compliant with your follow up appointments or have a follow up appointment scheduled as per instruction of your physician. Refills should be requested at the time of your visit. Follow up in 2 weeks BRING BP READINGS FROM HOME The provider reviewed the following test(s) and result(s) with the patient: chest x-ray, laboratory tests and CT SCAN OF LUNG Chief Complaint JESSENIA PYLE is being seen for 1 week follow up. History of Present Illness Accompanied by today. He had his medication left. Still remains on lisinopril 10 mg daily. Apparently there was misunderstanding about discontinuation of MICHELLE inhibitors and angiotensin receptor blockers in view of patient's persistent cough. Complains of cough and exertional shortness of breath. reports that the shortness of breath is very prominent, chronically is class III. No orthopnea or PND or lower extremity edema. No chest pressure tightness or heaviness. Since last visit patient had a BNP level done respiratory panel done and chest x-ray done. BNP level was 50, respiratory panel was negative Blood pressure today is on the low side. Medications were reviewed. Chest x-ray did show elevation of the right hemidiaphragm and a linear atelectasis or scarring in the retrosternal region on the lateral view. Granulomas were noted History 2 so far ; 1. Hypertension 2. Hyperlipidemia-on rosuvastatin, triglycerides elevated, recently ezetimibe was added. 3. Patient reports that he sometimes gets achy muscles with statins. 4. Lexiscan Myoview December 2021-normal perfusion LVEF 73% transient ischemic dilatation 0.92 which is normal no evidence of attenuation artifact 5. Cardiac catheterization July 2012-LVEDP 0 to 14 mmHg no gradient across the aortic valve LVEF 55 to 60% 30% mid LAD first obtuse marginal branch 70% stenosis small caliber vessel RCA without significant disease medical management recommended 6. Intolerance to several statins-currently tolerating rosuvastatin 20 mg daily without untoward effects 7. Ex-smoker, quit about 40 years ago 8. Pulmonary function testing November 2022-normal diffusion capacity evidence of mild restriction without obvious obstruction no significant bronchodilator response no obvious air trapping or hyperinflation. Diffusion capacity is adjusted for alveolar volume, it is supra normal. 9. Possible intolerance to MICHELLE inhibitors and/or angiotensin receptor blockers-cough could be related to this or partly related to this 10. Patient is on albuterol inhaler, he says it does not make any difference in his breathing, if he has underlying reactive airway disease, could bisoprolol be a contributing factor to his shortness of breath? 11. Could bisoprolol be causing chronotropic blunting. Patient says his knee is getting a little bit better, but he is very hesitant to walk on a treadmill at this time. 12. Inaccurate medication list. 13. Echocardiogram January 09, 2023-left atrium 4.3 cm LV wall thickness 1.3/1.4 cm LV end-systolic diameter 3.1 cm RV systolic pressure 25 mmHg TAPSE 2.3 IVC normal 14. BNP level January 29 2350, respiratory panel negative, chest x-ray no pulmonary vascular congestion Patient has to stay off the lisinopril. Possibilities that come to mind regarding his shortness of breath include chronotropic blunting anginal equivalent cardiopulmonary issues. Blood pressure is on the low side today. Patient now says that he can walk on a treadmill. That will help us look for chronotropic blunting. Still contemplating coronary angiography, will follow patient closely, patient and would like to hold off for now if possible, the reason I am not rushing into it is because the symptoms are subacute possibly chronic. (more content not included)... Normal [employer] Tobacco Screening.on 023 Adult depression screening assessment No [facility] [employer] 250 DO Work Phone: Fall risk assessment a) No falls within the last year [facility] [employer] 250 DO Work Phone: Tobacco use status CPHS b) No [facility] [employer] 250 DO Work Phone: Alanine aminotransferase [En zymatic activity/volume] in Serum or PlasmaOrdered By: Chris Pierre on 01-28-2023 ALT [Catalytic activity/Vol] 54 U/L 7-52 [facility] Albumin [Mass/volume] in Ser um or Plasma by Bromocresol green (BCG) dye binding methoOrdered By: Chris Pierre on 01-28-2023 Albumin BCG dye [Mass/Vol] 4.3 g/dL 3.5-5.7 [facility] Alkaline phosphatase [Enzyma tic activity/volume] in Serum or PlasmaOrdered By: Chris Pierre on 01-28-2023 ALP [Catalytic activity/Vol] 65 U/L 34-104 [facility] Aspartate aminotransferase [ Enzymatic activity/volume] in Serum or PlasmaOrdered By: Chris Pierre on 01-28-2023 AST [Catalytic activity/Vol] 41 U/L 13-39 [facility] Basophils Auto (Bld) [#/Vol] Ordered By: Chris Pierre on 01-28-2023 Basophils (Bld) [#/Vol] 0.0 10*3/uL 0.0-0.2 [facility] Basophils/100 WBC Auto (Bld) Ordered By: Chris Pierre on 01-28-2023 Basophils/100 WBC (Bld) 0.6 % . [facility] Bilirubin Test strip Ql (U)O rdered By: Chris Pierre on 01-28-2023 Bilirubin Ql (U) Negative Negative [facility] Bilirubin.total [Mass/volume ] in Serum or PlasmaOrdered By: Chris Pierre on 01-28-2023 Bilirubin [Mass/Vol] 1.2 mg/dL 0.3-1.0 [facility] COVID-19 Detected/Not Detect edOrdered By: Shanthi Lancaster on 01-28-2023 SARS-CoV-2 (COVID-19) RNA VASYL+non-probe Ql (Nph) Not detected Not Detecte [facility] Comment on above: This is a duplicate RP2.1 COVID (PCR) result to be used for statistical tracking purpose only. Calcium [Mass/volume] in Ser um or PlasmaOrdered By: Chris Pierre on 01-28-2023 Calcium [Mass/Vol] 9.1 mg/dL 8.6-10.3 [facility] Carbon dioxide, total [Moles /volume] in Serum or PlasmaOrdered By: Chris Pierre on 01-28-2023 CO2 [Moles/Vol] 27.2 mmol/L 21.0-31.0 [facility] Chloride [Moles/volume] in S claudia or PlasmaOrdered By: Chris Pierre on 01-28-2023 Chloride [Moles/Vol] 106 mmol/L 98-107 [facility] Cholesterol [Mass/volume] in Serum or PlasmaOrdered By: Chris Pierre on 01-28-2023 Cholesterol [Mass/Vol] 131 mg/dL 140-200 [facility] Comment on above: Chol less than 200 m g/dl low riskChol 201-239 mg/dl borderline riskChol 240 mg/dl and greater high risk Cholesterol in LDL Calc [Mas s/Vol]Ordered By: Chris Pierre on 01-28-2023 Cholesterol in LDL [Mass/Vol] 60 mg/dL 0-100 [facility] Comment on above: LDL ATP III CLASSIFI CATIONLDL less than 100 mg/dL OptimalLDL 100-129 mg/dL Near or above optimalLDL 130-159 mg/dL Borderline highLDL 160-189 mg/dL HighLDL greater than 189 mg/dL Very high Cholesterol in VLDL Calc [Ma ss/Vol]Ordered By: Chris Pierre on 01-28-2023 Cholesterol in VLDL [Mass/Vol] 26 mg/dL [facility] Color Auto (U)Ordered By: Elio Pierre on 01-28-2023 Color (U) Yellow Yellow [facility] Creatinine [Mass/volume] in Serum or PlasmaOrdered By: Chris Pierre on 01-28-2023 Creatinine [Mass/Vol] 0.93 mg/dL 0.70-1.30 [facility] Eosinophils Auto (Bld) [#/Vo l]Ordered By: Chris Pierre on 01-28-2023 Eosinophils (Bld) [#/Vol] 0.1 10*3/uL 0.0-0.45 [facility] Eosinophils/100 WBC Auto (Bl d)Ordered By: Chris Pierre on 01-28-2023 Eosinophils/100 WBC (Bld) 2.4 % . [facility] Erythrocyte distribution wid th Auto (RBC) [Ratio]Ordered By: Chris Pierre on 01-28-2023 Erythrocyte distribution width (RBC) [Ratio] 12.5 % 12.0-14.8 [facility] Globulin Calc (S) [Mass/Vol] Ordered By: Chris Pierre on 01-28-2023 Globulin (S) [Mass/Vol] 1.6 g/dL [facility] Glucose [Mass/volume] in Ser um or PlasmaOrdered By: Chris Pierre on 01-28-2023 Glucose [Mass/Vol] 168 mg/dL 70-100 [facility] Comment on above: ADA recommended refe rence rangeRandom Glucose Reference Range is dependent on time and content of last meal. Glucose of more than 200 mg/dL in a nonstressed, ambulatory subject supports the diagnosis of Diabetes Mellitus. Glucose mean value [Mass/vol ume] in Blood Estimated from glycated hemoglobinOrdered By: Chris Pierre on 01-28-2023 Average glucose Estimated from glycated hemoglobin (Bld) [Mass/Vol] 131 mg/dL [facility] Hematocrit Auto (Bld) [Volum e fraction]Ordered By: Chris Pierre on 01-28-2023 Hematocrit (Bld) [Volume fraction] 48.0 % 38.8-50.0 [facility] Hemoglobin A1c percentageOrd ered By: Chris Pierre on 01-28-2023 HbA1c (Bld) [Mass fraction] 6.2 % 4.3-5.6 [facility] Comment on above: Increased risk for d iabetes: 5.7 - 6.4diabetes: >6.4glycemic control for adults with diabetes: <7.0 Hemoglobin [Mass/volume] in BloodOrdered By: Chris Pierre on 01-28-2023 Hemoglobin (Bld) [Mass/Vol] 16.8 g/dL 13.0-17.0 [facility] Ketones Auto test strip (U) [Mass/Vol]Ordered By: Chris Pierre on 01-28-2023 Ketones (U) [Mass/Vol] Negative Negative Fi [facility] Leukocytes [#/volume] correc ulisses for nucleated erythrocytes in Blood by Automated counOrdered By: Chris Pierre on 01-28-2023 WBC corrected for nucl RBC Auto (Bld) [#/Vol] 5.0 10*3/uL 4.1-10.5 [facility] Lymphocytes Auto (Bld) [#/Vo l]Ordered By: Chris Pierre on 01-28-2023 Lymphocytes (Bld) [#/Vol] 0.9 10*3/uL 1.00-4.8 [facility] Lymphocytes/100 WBC Auto (Bl d)Ordered By: Chris Pierre on 01-28-2023 Lymphocytes/100 WBC (Bld) 17.6 % . [facility] MCH Auto (RBC) [Entitic mass ]Ordered By: Chris Pierre on 01-28-2023 MCH (RBC) [Entitic mass] 33.5 pg 27.5-35.2 [facility] MCHC Auto (RBC) [Mass/Vol]Or dered By: Chris Pierre on 01-28-2023 MCHC (RBC) [Mass/Vol] 34.9 g/dL 32.5-35.6 [facility] MCV Auto (RBC) [Entitic vol] Ordered By: Chris Pierre on 01-28-2023 MCV (RBC) [Entitic vol] 96.0 fL 83.5-101 [facility] Microalbumin [Mass/volume] i n UrineOrdered By: Crhis Pierre on 01-28-2023 Albumin DL <= 20 mg/L (U) [Mass/Vol] 2.2 mg/dL 0.0-1.8 [facility] Monocytes Auto (Bld) [#/Vol] Ordered By: Chris Pierre on 01-28-2023 Monocytes (Bld) [#/Vol] 0.5 10*3/uL 0.0-0.8 [facility] Monocytes/100 WBC Auto (Bld) Ordered By: Chris Pierre on 01-28-2023 Monocytes/100 WBC (Bld) 10.1 % . [facility] Natriuretic peptide B [Mass/ Vol]Ordered By: Shanthi Lancaster on 01-28-2023 Natriuretic peptide B (Bld) [Mass/Vol] 50.0 pg/mL 5-100 [facility] Neutrophils Auto (Bld) [#/Vo l]Ordered By: Chris Pierre on 01-28-2023 Neutrophils (Bld) [#/Vol] 3.5 10*3/uL 1.8-7.7 [facility] Neutrophils/100 WBC Auto (Bl d)Ordered By: Chris Pierre on 01-28-2023 Neutrophils/100 WBC (Bld) 69.3 % . [facility] Nitrite Test strip Ql (U)Ord ered By: Chris Pierre on 01-28-2023 Nitrite Ql (U) Negative Negative [facility] No Panel Informationon 01-28 -[facility] 250 DO Work Phone: 50.0\S\50.0 Normal 5-100 [facility] 250 DO Work Phone: Comment on above: PERFORMED BY:[facility] [place] [id number] MEDICAL DIRECTORGWEN CRUZ M.D. 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) (I25.10) Overweight with body mass index (BMI) of 29 to 29.9 in adult (278.02,V85.25) (E66.3,Z68.29) Hypertriglyceridemia (272.1) (E78.1) Orders Cough, Shortness of breath Brain Natriuretic Peptide BNP; Status:Active - Retrospective Authorization; Requested for:28Jan2023; Coronavirus 2019 RNA by PCR, Symptomatic; Status:Active - Retrospective By Protocol Authorization; Requested for:28Jan2023; Respiratory Viral Panel PCR; Status:Hold For - Specimen/Data Collection,Retrospective By Protocol Authorization; Requested for:28Jan2023; Xray Chest 2 View PA + Lateral; Status:Hold For - Scheduling,Retrospective By Protocol Authorization; Requested for:28Jan2023; Radiologist to Determine Optimal Study : Y What are the patient's signs and symptoms? : sob Overweight with body mass index (BMI) of 29 to 29.9 in adult Healthy Weight Tips; Status:Complete - Retrospective Authorization; Done: 28Jan2023 Some eating tips that can help you lose weight.; Status:Complete - Retrospective Authorization; Done: 28Jan2023 Patient Instructions Please bring all medicines, vitamins, and herbal supplements with you when you come to the office. Prescriptions will not be filled unless you are compliant with your follow up appointments or have a follow up appointment scheduled as per instruction of your physician. Refills should be requested at the time of your visit. Follow up in 1 weeks Chief Complaint JESSENIA PYLE is being seen for a 4 week follow-up of. History of Present Illness 77-year-old gentleman was most recently seen by me in December 2022. My initial visit with him was in September 2022. He continues to complain of exertional shortness of breath. He says his cough is better. I had ordered a respiratory panel or suggested a respiratory panel, I do not see that this was done. Patient is predominant and quality of life limiting issue is his exertional shortness of breath. His medication list is incorrect and unreliable. He initially told me that he takes lisinopril and losartan. Subsequently we found out that he is not on lisinopril probably but on losartan we had to call his over the telephone, she was at work, and she agrees to review all his medications, and update us. She is very concerned about his shortness of breath. His echo results and laboratory data were reviewed. Echo does not explain his shortness of breath. His pulmonary function testing also does not explain the shortness of breath. Patient quit smoking years ago. His pulmonary function testing results do not explain the shortness of breath. No falls no lightheadedness. Not taking cetirizine as suggested. No orthopnea PND or palpitations. Because of degenerative joint disease, for which she undergoes therapy, is perfusion study with Lexiscan Myoview, hence unable to assess heart rate response to activity. It was reported to show normal perfusion. Assessment: 1. Hypertension-at target 2. Hyperlipidemia-on rosuvastatin, triglycerides elevated, recently ezetimibe was added. 3. Patient reports that he sometimes gets achy muscles with statins. 4. Lexiscan Myoview December 2021-normal perfusion LVEF 73% transient ischemic dilatation 0.92 which is normal no evidence of attenuation artifact 5. Cardiac catheterization July 2012-LVEDP 0 to 14 mmHg no gradient across the aortic valve LVEF 55 to 60% 30% mid LAD first obtuse marginal branch 70% stenosis small caliber vessel RCA without significant disease medical management recommended 6. Intolerance to several statins-currently tolerating rosuvastatin 20 mg daily without untoward effects 7. Ex-smoker, quit about 40 years ago 8. Pulmonary function testing November 2022-normal diffusion capacity evidence of mild restriction without obvious obstruction no significant bronchodilator response no obvious air trapping or hyperinflation. Diffusion capacity is adjusted for alveolar volume, it is supra normal. 9. Possible intolerance to MICHELLE inhibitors and/or angiotensin receptor blockers-cough could be related to this or partly related to this 10. Patient is on albuterol inhaler, he says it does not make any difference in his breathing, if he has underlying reactive airway disease, could bisoprolol be a contributing factor to his shortness of breath? 11. Could bisoprolol be causing chronotropic blunting. Patient says his knee is getting a little bit better, but he is very hesitant to walk on a treadmill at this time. 12. Inaccurate medication list. 13. Echocardiogram January 09, 2023-left atrium 4.3 cm LV wall thickness 1.3/1.4 cm LV end-systolic diameter 3.1 cm RV systolic pressure 25 mmHg TAPSE 2.3 IVC normal Recommendations: 1. I did not suggest any change in his m (more content not included)... Normal [employer] Platelet mean volume Auto (B ld) [Entitic vol]Ordered By: Chris Pierre on 01-28-2023 Platelet mean volume (Bld) [Entitic vol] 10.2 fL 6.6-10.1 [facility] Platelets Auto (Bld) [#/Vol] Ordered By: Chris Pierre on 01-28-2023 Platelets (Bld) [#/Vol] 116 10*3/uL 150-450 [facility] Potassium [Moles/volume] in Serum or PlasmaOrdered By: Chris Pierre on 01-28-2023 Potassium [Moles/Vol] 4.7 mmol/L 3.5-5.1 [facility] Prostate specific Ag [Mass/v olume] in Serum or PlasmaOrdered By: Chris Pierre on 01-28-2023 Prostate specific Ag [Mass/Vol] 0.950 ng/mL 0.000-4.00 0 [facility] Protein Auto test strip (U) [Mass/Vol]Ordered By: Chris Pierre on 01-28-2023 Protein (U) [Mass/Vol] Negative Negative Fi [facility] Protein [Mass/volume] in Ser um or PlasmaOrdered By: Chris Pierre on 01-28-2023 Protein [Mass/Vol] 5.9 g/dL 6.4-8.9 [facility] RBC Auto (Bld) [#/Vol]Ordere d By: Chris Pierre on 01-28-2023 RBC (Bld) [#/Vol] 5.00 10*6/uL 3.90-5.60 [facility] Respiratory pathogens DNA an d RNA panel - Nasopharynx by [facility] with non-probe detectionOrdered By: Shanthi Lancaster on 01-28-2023 Respiratory pathogens DNA and RNA panel VASYL+non-probe (Nph) [facility] Serum or plasma albumin/glob ulin mass ratioOrdered By: Chris Pierre on 01-28-2023 Albumin/Globulin [Mass ratio] 2.7 {ratio} [facility] Serum or plasma anion gap de terminationOrdered By: Chris Pierre on 01-28-2023 Anion gap [Moles/Vol] 12.5 mmol/L 6.0-15.[address] [facility] Serum or plasma high density lipoprotein (HDL) cholesterol measurementOrdered By: Chris Pierre on 01-28-2023 Cholesterol in HDL [Mass/Vol] 44 mg/dL 23-92 [facility] Comment on above: HDL CHOL ATP-III CLA SSIFICATION Cardiovascular RiskHDL > or equal to 60 mg/dL LOWHDL < 40 mg/dL HIGH Serum or plasma total choles terol/high density lipoprotein (HDL) cholesterol mass ratOrdered By: Chris Pierre on 01-28-2023 Cholesterol.total/Chol esterol in HDL [Mass ratio] 3.0 {ratio} <5.0 [facility] Sodium [Moles/volume] in Ser um or PlasmaOrdered By: Chris Pierre on 01-28-2023 Sodium [Moles/Vol] 141 mmol/L 136-145 [facility] Specific gravity Auto test s trip (U) [Rel density]Ordered By: Chris Pierre on 01-28-2023 Specific gravity (U) [Rel density] 1.018 1.001-1.03 0 [facility] Thyrotropin [Units/volume] i n Serum or PlasmaOrdered By: Chris Pierre on 01-28-2023 TSH Qn 0.76 m[IU]/L 0.45-5.33 [facility] Tobacco Screening.on 023 Tobacco use status CPHS b) No -[facility] 250 DO Work Phone: Triglyceride [Mass/volume] i n Serum or PlasmaOrdered By: Chris Pierre on 01-28-2023 Triglyceride [Mass/Vol] 134 mg/dL 0-149 [facility] Comment on above: TRIG ATP III CLASSIF ICATIONTRIG less than 150 mg/dL NormalTRIG 150-199 mg/dL Borderline highTRIG 200-500 mg/dL High TRIG greater than 500 mg/dL Very highStandard traceable to the Center for Disease Conrtrol and Prevention (CDC) test method. Urea nitrogen [Mass/volume] in Serum or PlasmaOrdered By: Chris Pierre on 01-28-2023 Urea nitrogen [Mass/Vol] 17 mg/dL 7-25 [facility] Urine clarity by refractomet ry automatedOrdered By: Chris Pierre on 01-28-2023 Clarity Refractometry automated (U) Clear Clear [facility] Urine glucose measurement by automated test strip (mass/volume)Ordered By: Chris Pierre on 01-28-2023 Glucose Auto test strip (U) [Mass/Vol] Normal mg/dL Normal [facility] Urine hemoglobin detection b y automated test stripOrdered By: Chris Pierre on 01-28-2023 Hemoglobin Auto test strip Ql (U) Negative Negative [facility] Urine leukocyte esterase det ection by automated test stripOrdered By: Chris Pierre on 01-28-2023 Leukocyte esterase Auto test strip Ql (U) Negative Negative [facility] Urobilinogen Auto test strip (U) [Mass/Vol]Ordered By: Chris Pierre on 01-28-2023 Urobilinogen (U) [Mass/Vol] Normal mg/dL Normal [facility] WBC Auto (Bld) [#/Vol]Ordere d By: Chris Pierre on 01-28-2023 WBC (Bld) [#/Vol] 5.0 10*3/uL 4.1-10.5 [facility] pH Auto test strip (U)Ordere d By: Chris Ignacio on 01-28-2023 pH (U) 5.5 [pH] 5.0-9.0 [facility] No Panel Informationon 01-09 [facility] 250 DO Work Phone: Office Visit (Cardiology)on 12-24-2022 Follow-up visit Diagnoses/Problems Assessed 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) (I25.10) Essential hypertension (401.9) (I10) Hyperlipidemia (272.4) (E78.5) Hypertriglyceridemia (272.1) (E78.1) Shortness of breath (786.05) (R06.02) Cough (786.2) (R05.9) Medication course changed (V58.69) (Z79.899) Overweight with body mass index (BMI) of 29 to 29.9 in adult (278.02,V85.25) (E66.3,Z68.29) Former smoker (V15.82) (Z87.891) quit 1972 Orders Essential hypertension Start: Doxazosin Mesylate 2 MG Oral Tablet; TAKE 1 TABLET DAILY at bedtime Overweight with body mass index (BMI) of 29 to 29.9 in adult Start: Cetirizine HCl - 5 MG Oral Tablet; TAKE 1 TABLET DAILY DIRECTED Healthy Weight Tips; Status:Complete; Done: [id number] Some eating tips that can help you lose weight.; Status:Complete; Done: [id number] SocHx: Former smoker Tobacco Use Screening; Status:Complete; Done: [id number] Unlinked Stop: Losartan Potassium 50 MG Oral Tablet Patient Instructions Please bring all medicines, vitamins, and herbal supplements with you when you come to the office. Prescriptions will not be filled unless you are compliant with your follow up appointments or have a follow up appointment scheduled as per instruction of your physician. Refills should be requested at the time of your visit. 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 History of Present Illness Patient was most recently seen in September 2022. He has multiple cardiac risk factors and mild coronary artery disease with preserved LV systolic function he has intolerance to lisinopril, details are not clear. He reports shortness of breath and a cough, and at times audible wheezing. He says that he has seasonal allergies. He says he does not have symptoms of sleep apnea. On further review of systems he says that for the last 6 to 12 months he has had shortness of breath cough and occasional wheezing. Pulmonary function testing was done, and I reviewed the results. It is not diagnostic. Ex-smoker having quit 40+ years ago. Patient says he also had a CT of the chest that was unremarkable. He does have postnasal drip. He has statin intolerance. He remains on Trelegy. Does not report any fever or chills. Denies lower extremity edema or chest pressure tightness or palpitations. No recent laboratory data to review Assessment: 1. Hypertension-at target 2. Hyperlipidemia-on rosuvastatin, triglycerides elevated, recently ezetimibe was added. 3. Patient reports that he sometimes gets achy muscles with statins. 4. Lexiscan Myoview December 2021-normal perfusion LVEF 73% transient ischemic dilatation 0.92 which is normal no evidence of attenuation artifact 5. Cardiac catheterization July 2012-LVEDP 0 to 14 mmHg no gradient across the aortic valve LVEF 55 to 60% 30% mid LAD first obtuse marginal branch 70% stenosis small caliber vessel RCA without significant disease medical management recommended 6. Statin intolerance 7. Ex-smoker, quit about 40 years ago 8. Pulmonary function testing November 2022-normal diffusion capacity evidence of mild restriction without obvious obstruction no significant bronchodilator response no obvious air trapping or hyperinflation. Diffusion capacity is adjusted for alveolar volume, it is supra normal. 9. Intolerance to lisinopril Despite the pulmonary function testing not showing any evidence of reactive airway disease, clinically there is a component of this, and it could be postviral or allergy induced, or it could be a side effect of the losartan, if patient has a tendency for wheezing, bisoprolol could be making it worse 2. Although this patient has statin intolerance, he has been tolerating 20 mg of rosuvastatin at this time. Clearly he has postnasal drip and congestion. Recommendations: 1. Discontinue losartan at this time 2. Doxazosin 2 mg daily 3. Consider respiratory panel, differential diagnosis could also include COVID 19. Will defer to primary. 4. Cetirizine 5 mg at bedtime 5. Follow-up in 4 weeks, if the above measures fail to provide relief, then I will resume the losartan and work on weaning him off the bisoprolol. 6. I do not see that an echocardiogram has been done, we will schedule an echocardiogram as well. 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) (I25.10) Essential hypertension (401.9) (I10) Hyperlipidemia (272.4) (E78.5) Overweight with body mass index (BMI) of 29 to 29.9 in adult (278.02,V85.25) (E66.3,Z68.29) Former smoker (V15.82) (Z87.891) quit 1971 Hypertriglyceridemia (272.1) (E78.1) Normal cardiac ejection fraction Orders 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 Renew: Aspirin 81 MG Oral Tablet Delayed Release; TAKE 1 TABLET DAILY Renew: Rosuvastatin Calcium 20 MG Oral Tablet; TAKE 1 TABLET DAILY 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, Essential hypertension, Hyperlipidemia Renew: Isosorbide Mononitrate ER 30 MG Oral Tablet Extended Release 24 Hour; Take 1 tablet daily Overweight with body mass index (BMI) of 29 to 29.9 in adult Healthy Weight Tips; Status:Complete - Retrospective Authorization; Done: [id number] Some eating tips that can help you lose weight.; Status:Complete - Retrospective Authorization; Done: [id number] SocHx: Former smoker Tobacco Use Screening; Status:Complete; Done: [id number] Patient Instructions Please bring all medicines, vitamins, and herbal supplements with you when you come to the office. Prescriptions will not be filled unless you are compliant with your follow up appointments or have a follow up appointment scheduled as per instruction of your physician. Refills should be requested at the time of your visit. PCP to fill all rx except Isosorbide Follow up in 1 year Chief Complaint JESSENIA PYLE is being seen for a 6 month follow-up of. History of Present Illness Patient is new to this provider. Previously saw Dr. Brock. Per most recent OV note of 08/21/21 : Mr. Pyle is a 76-year-old male seen back today for follow-up on his history of coronary disease. He also has a history of hypertension. He said some shortness of breath but no real chest pain. Prior heart catheterization that was done back in July 2012 demonstrated mostly moderate range of branch vessel disease that was quite distal. There is no intervention done. Blood pressure appears well controlled today. He has no complaints. Remains physically active without anginal symptoms. Patient does not report any chest discomfort pressure tightness heaviness palpitations lightheadedness orthopnea PND or lower extremity edema. Triglycerides were elevated and recently Zetia was added by Dr. Pierre. 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 He said that prior to initiating the isosorbide he would get chest heaviness after exerting himself like walking for close to 3 miles. The symptoms have since subsided. I reviewed the results of the most recent perfusion imaging study and also his recent blood work. Reviewed most recent office visit note by Faith Dallas on 03/27/2022. Laboratory data from July 2022 hemoglobin 18 hematocrit 53 platelets 140 AST and ALT mildly elevated 45 and 61 glucose 155 GFR greater than 60 BUN 16 creatinine 1.02 sodium 137 potassium 4.7 total cholesterol 173 triglycerides 157 LDL 93 hemoglobin A1c 5.6 Assessment: 1. Hypertension-at target 2. Hyperlipidemia-on rosuvastatin, triglycerides elevated, recently ezetimibe was added. 3. Patient reports that he sometimes gets achy muscles with statins. 4. Lexiscan Myoview December 2021-normal perfusion LVEF 73% transient ischemic dilatation 0.92 which is normal no evidence of attenuation artifact 5. Cardiac catheterization July 2012-LVEDP 0 to 14 mmHg no gradient across the aortic valve LVEF 55 to 60% 30% mid LAD first obtuse marginal branch 70% stenosis small caliber vessel RCA without significant disease medical management recommended Recommendations: 1. Continue aggressive risk factor modification aiming for LDL 70 or below and triglycerides at or below 150, all the medications are managed by Dr. Pierre, we are only refilling the isosorbide. 2. Follow-up in 1 year sooner if interval problems arise 3. Heart healthy lifestyle was encouraged. Surgical History Problems History of Complete colonoscopy [id number] History of Foot surgery History of Knee surgery History of Lithotripsy History of Meniscus repair History of Renal lithotripsy History of Retinal laser photocoagulation History of Tonsillectomy Current Meds Medication NameInstruction amLODIPine Besylate 5 MG Oral TabletTAKE 1 TABLET DAILY. Aspirin 81 MG Oral Tablet Delayed ReleaseTAKE 1 TABLET DAILY. Bisoprolol-hydroCHLOROthiaz gilma 10-6.25 MG Oral TabletTAKE 1 TABLET DAILY. Ezetimibe 10 MG Oral TabletTAKE 1 TABLET AT BEDTIME. Isosorbide Mononitrate ER 30 MG Oral Tablet Extended Release 24 HourTake 1 tablet daily Lisinopril 10 MG Oral TabletTAKE 1 TABLET DAILY. Multi Vitamin TABSTAKE 1 TABLET DAILY. Nitroglycerin 0.4 MG Sublingu (more content not included)... Normal [employer] Tobacco Screening.on 023 Adult depression screening assessment [facility] [employer] 250 DO Work Phone: Fall risk assessment a) No falls within the last year [facility]oni 250 DO Work Phone: Tobacco use status [facility] b) No [facility]oni 250 DO Work Phone: Albumin [Mass/volume] in Ser um or PlasmaOrdered By: Chris Pierre on 08-02-2022 Albumin [Mass/Vol] 4.3 g/dL 3.2-5.5 [facility] Anisocytosis LM Ql (Bld)Orde red By: Chris Pierre on 08-02-2022 Anisocytosis Ql (Bld) Slight [facility] Basophils Auto (Bld) [#/Vol] Ordered By: Chris Pierre on 08-02-2022 Basophils (Bld) [#/Vol] 0.0 10*3/uL 0.0-0.2 [facility] Basophils/100 WBC Auto (Bld) Ordered By: Chris Pierre on 08-02-2022 Basophils/100 WBC (Bld) 0.6 % . [facility] Cholesterol [Mass/volume] in Serum or PlasmaOrdered By: Chris Pierre on 08-02-2022 Cholesterol [Mass/Vol] 173 mg/dL 140-200 [facility] Comment on above: Chol less than 200 m g/dl low riskChol 201-239 mg/dl borderline riskChol 240 mg/dl and greater high risk Cholesterol in LDL Calc [Mas s/Vol]Ordered By: Chris Pierre on 08-02-2022 Cholesterol in LDL [Mass/Vol] 93 mg/dL 0-100 [facility] Comment on above: LDL ATP III CLASSIFI CATIONLDL less than 100 mg/dL OptimalLDL 100-129 mg/dL Near or above optimalLDL 130-159 mg/dL Borderline highLDL 160-189 mg/dL HighLDL greater than 189 mg/dL Very high Cholesterol in VLDL Calc [Ma ss/Vol]Ordered By: Chris Pierre on 08-02-2022 Cholesterol in VLDL [Mass/Vol] 31 mg/dL [facility] Creatinine and Glomerular fi ltration rate.predicted panel (S/P/Bld)Ordered By: Chris Pierre on 08-02-2022 Creatinine [Mass/Vol] 1.02 mg/dL 0.64-1.27 [facility] Eosinophils Auto (Bld) [#/Vo l]Ordered By: Chris Pierre on 08-02-2022 Eosinophils (Bld) [#/Vol] 0.1 10*3/uL 0.0-0.45 [facility] Eosinophils/100 WBC Auto (Bl d)Ordered By: Chris Pierre on 08-02-2022 Eosinophils/100 WBC (Bld) 2.4 % . [facility] Erythrocyte distribution wid th Auto (RBC) [Ratio]Ordered By: Chris Pierre on 08-02-2022 Erythrocyte distribution width (RBC) [Ratio] 13.0 % 12.0-14.8 [facility] Estimated glomerular filtrat ion rate (GFR) non- AmericanOrdered By: Chris Pierre on 08-02-2022 GFR/1.73 sq M.predicted among non-blacks MDRD (S/P/Bld) [Vol rate/Area] > 60 mL/Min [facility] Globulin Calc (S) [Mass/Vol] Ordered By: Chris Pierre on 08-02-2022 Globulin (S) [Mass/Vol] 2.2 g/dL [facility] Glucose mean value [Mass/vol ume] in Blood Estimated from glycated hemoglobinOrdered By: Chris Pierre on 08-02-2022 Average glucose Estimated from glycated hemoglobin (Bld) [Mass/Vol] 114 mg/dL [facility] Hematocrit Auto (Bld) [Volum e fraction]Ordered By: Chris Pierre on 08-02-2022 Hematocrit (Bld) [Volume fraction] 53.0 % 38.8-50.0 [facility] Hemoglobin A1c percentageOrd ered By: Chris Pierre on 08-02-2022 HbA1c (Bld) [Mass fraction] 5.6 % 4.3-5.6 [facility] Comment on above: Increased risk for d iabetes: 5.7 - 6.4diabetes: >6.4glycemic control for adults with diabetes: <7.0 Hemoglobin [Mass/volume] in BloodOrdered By: Chris Pierre on 08-02-2022 Hemoglobin (Bld) [Mass/Vol] 18.1 g/dL 13.0-17.0 [facility] Leukocytes [#/volume] correc ulisses for nucleated erythrocytes in Blood by Automated counOrdered By: Chris Pierre on 08-02-2022 WBC corrected for nucl RBC Auto (Bld) [#/Vol] 5.7 10*3/uL 4.1-10.5 [facility] Lymphocytes Auto (Bld) [#/Vo l]Ordered By: Chris Pierre on 08-02-2022 Lymphocytes (Bld) [#/Vol] 1.3 10*3/uL 1.00-4.8 [facility] Lymphocytes/100 WBC Auto (Bl d)Ordered By: Chris Pierre on 08-02-2022 Lymphocytes/100 WBC (Bld) 21.9 % . [facility] MCH Auto (RBC) [Entitic mass ]Ordered By: Chris Pierre on 08-02-2022 MCH (RBC) [Entitic mass] 33.2 pg 27.5-35.2 [facility] MCHC Auto (RBC) [Mass/Vol]Or dered By: Chris Pierre on 08-02-2022 MCHC (RBC) [Mass/Vol] 34.1 g/dL 32.5-35.6 [facility] MCV Auto (RBC) [Entitic vol] Ordered By: Chris Pierre on 08-02-2022 MCV (RBC) [Entitic vol] 97.2 fL 83.5-101 [facility] Microcytes LM Ql (Bld)Ordere d By: Chris Pierre on 08-02-2022 Microcytes Ql (Bld) Slight [facility] Monocytes Auto (Bld) [#/Vol] Ordered By: Chris Pierre on 08-02-2022 Monocytes (Bld) [#/Vol] 0.6 10*3/uL 0.0-0.8 [facility] Monocytes/100 WBC Auto (Bld) Ordered By: Chris Pierre on 08-02-2022 Monocytes/100 WBC (Bld) 10.7 % . [facility] Neutrophils Auto (Bld) [#/Vo l]Ordered By: Chris Pierre on 08-02-2022 Neutrophils (Bld) [#/Vol] 3.7 10*3/uL 1.8-7.7 [facility] Neutrophils/100 WBC Auto (Bl d)Ordered By: Chris Pierre on 08-02-2022 Neutrophils/100 WBC (Bld) 64.4 % . [facility] No Panel InformationOrdered By: Chris Pierre on 08-02-2022 Estimated GFR () > 60 mL/Min [facility] Comment on above: GFR estimated refere nce range: According to KDOQI guidelines, <60 ml/min/1.73m2 is sufficient to diagnose a patient with chronic kidney disease. Pharmacy Creatinine Clearance (Chem N/A [facility] Nucleated erythrocytes [Pres ence] in Blood by Automated countOrdered By: Chris Pierre on 08-02-2022 Nucleated RBC Auto Ql (Bld) 0.4 /100{WBC} 0-0.5 [facility] Platelet adequacy [Presence] in Blood by Light microscopyOrdered By: Chris Pierre on 08-02-2022 Platelets LM Ql (Bld) Decreased Normal [facility] Platelet mean volume Auto (B ld) [Entitic vol]Ordered By: Chris Pierre on 08-02-2022 Platelet mean volume (Bld) [Entitic vol] 10.8 fL 6.6-10.1 [facility] Platelet morphology finding [Identifier] in BloodOrdered By: Chris Pierre on 08-02-2022 Platelet morphology finding Nom (Bld) Normal Normal [facility] Platelets Auto (Bld) [#/Vol] Ordered By: Chris Pierre on 08-02-2022 Platelets (Bld) [#/Vol] 140 10*3/uL 150-450 [facility] Protein [Mass/volume] in Ser um or PlasmaOrdered By: Chris Pierre on 08-02-2022 Protein [Mass/Vol] 6.5 g/dL 6.1-7.9 [facility] RBC Auto (Bld) [#/Vol]Ordere d By: Chris Pierre on 08-02-2022 RBC (Bld) [#/Vol] 5.45 10*6/uL 3.90-5.60 [facility] RBC morphologyOrdered By: Elio Pierre on 08-02-2022 RBC morphology finding Nom (Bld) N/A [facility] Serum or plasma alanine kee otransferase measurement without P-5'-P (enzymatic activiOrdered By: Chris Pierre on 08-02-2022 ALT No additional P-5'-P [Catalytic activity/Vol] 61 U/L 10-60 [facility] Serum or plasma albumin/glob ulin mass ratioOrdered By: Chris Pierre on 08-02-2022 Albumin/Globulin [Mass ratio] 2.0 {ratio} [facility] Serum or plasma alkaline janes sphatase measurement (enzymatic activity/volume)Ordered By: Chris Pierre on 08-02-2022 ALP [Catalytic activity/Vol] 61 U/L 32-92 [facility] Serum or plasma anion gap de terminationOrdered By: Chris Pierre on 08-02-2022 Anion gap [Moles/Vol] 14.4 mmol/L 6.0-15.0 [facility] Serum or plasma aspartate am inotransferase measurement (enzymatic activity/volume)Ordered By: Chris Pierre on 08-02-2022 AST [Catalytic activity/Vol] 45 U/L 10-42 [facility] Serum or plasma calcium evelyn urement (mass/volume)Ordered By: Chris Pierre on 08-02-2022 Calcium [Mass/Vol] 9.6 mg/dL 8.2-10.2 [facility] Serum or plasma chloride neto surement (moles/volume)Ordered By: Chris Pierre on 08-02-2022 Chloride [Moles/Vol] 101 mmol/L 95-114 [facility] Serum or plasma glucose evelyn urement (mass/volume)Ordered By: Chris Pierre on 08-02-2022 Glucose [Mass/Vol] 155 mg/dL 70-100 [facility] Comment on above: ADA recommended refe rence rangeRandom Glucose Reference Range is dependent on time and content of last meal. Glucose of more than 200 mg/dL in a nonstressed, ambulatory subject supports the diagnosis of Diabetes Mellitus. Serum or plasma high density lipoprotein (HDL) cholesterol measurementOrdered By: Chris Pierre on 08-02-2022 Cholesterol in HDL [Mass/Vol] 49 mg/dL 29-71 [facility] Comment on above: HDL CHOL ATP-III CLA SSIFICATION Cardiovascular RiskHDL > or equal to 60 mg/dL LOWHDL < 40 mg/dL HIGH Serum or plasma potassium me asurement (moles/volume)Ordered By: Chris Pierre on 08-02-2022 Potassium [Moles/Vol] 4.7 mmol/L 3.5-5.1 [facility] Serum or plasma sodium measu rement (moles/volume)Ordered By: Chris Pierre on 08-02-2022 Sodium [Moles/Vol] 137 mmol/L 136-146 [facility] Serum or plasma total biliru bin measurement (mass/volume)Ordered By: Chris Pierre on 08-02-2022 Bilirubin [Mass/Vol] 2.0 mg/dL 0.3-1.2 [facility] Comment on above: Samples from patient s who have taken Naproxen have shown spurious elevation in Total Bilirubin levels. A metabolite of Naproxen, O-desmethylnaproxen, has been shown to interfere with the Mariam-Mindy method for measuring Total Bilirubin. Serum or plasma total carbon dioxide measurement (moles/volume)Ordered By: Chris Pierre on 08-02-2022 CO2 [Moles/Vol] 26.3 mmol/L 22.0-30.0 [facility] Serum or plasma total choles terol/high density lipoprotein (HDL) cholesterol mass ratOrdered By: Chris Pierre on 08-02-2022 Cholesterol.total/Chol esterol in HDL [Mass ratio] 3.5 {ratio} <5.0 [facility] Serum or plasma urea nitroge n measurement (mass/volume)Ordered By: Chris Pierre on 08-02-2022 Urea nitrogen [Mass/Vol] 16 mg/dL 05-04 [facility] Triglyceride [Mass/volume] i n Serum or PlasmaOrdered By: Chris Pierre on 08-02-2022 Triglyceride [Mass/Vol] 157 mg/dL 35-149 [facility] Comment on above: TRIG ATP III CLASSIF ICATIONTRIG less than 150 mg/dL NormalTRIG 150-199 mg/dL Borderline highTRIG 200-500 mg/dL High TRIG greater than 500 mg/dL Very highStandard traceable to the Center for Disease Conrtrol and Prevention (CDC) test method. WBC Auto (Bld) [#/Vol]Teressa d By: Chris Pierre on 08-02-2022 WBC (Bld) [#/Vol] 5.7 10*3/uL 4.1-10.5 [facility] CNPNon 07-26-2022 CNPN Telephone (OPHTSG) JESSENIA PYLE ([id number]) 1945 M Date Time Provider Department 07/26/22 TAMANNA PORRAS OPHTSG During your visit today, we recorded the following information about you: Debbie Shipley Pss 07/26/2022 10:19 AM Signed Faxed letter to Lee Knowles, OD [address] [place] [id number] Via Allergies As of Date: 07/26/2022 Noted Allergy Reaction ATORVASTATIN 12/28/2020 17 - Myalgia 16 - Unknown CERIVASTATIN 12/28/2020 17 - Myalgia 16 - Unknown COLESEVELAM 12/28/2020 16 - Unknown EZETIMIBE 12/28/2020 17 - Myalgia 16 - Unknown FLUVASTATIN 12/28/2020 17 - Myalgia 16 - Unknown METAXALONE 12/28/2020 16 - Unknown SEASONAL ALLERGIES 12/28/2020 14 - Other: See Comments SIMVASTATIN 12/28/2020 17 - Myalgia 16 - Unknown Date Reviewed: Never Reviewed Reason for Visit: Letter [264] Prescriptions as of 07/26/2022 - keTORolac (ACULAR) 0.5 % ophthalmic solution Use 1 Drop in the left eye twice daily. - amLODIPine (NORVASC) 5 mg tablet Take 1 tablet by mouth once daily. - bisoprolol-hydroCHLOROthiaz gilma (ZIAC) 10-6.25 mg per tablet Take 1 tablet by mouth once daily. - amoxicillin (AMOXIL) 875 mg tablet Take 1 tablet by mouth once daily. - clarithromycin (BIAXIN) 500 mg Take 1 tablet by mouth once daily. - isosorbide mononitrate ER (IMDUR) 30 mg 24 hr tablet Take 1 tablet by mouth every morning. - lisinopril (ZESTRIL, PRINIVIL) 10 mg tablet Take 1 tablet by mouth once daily. - niacin 500 mg CR capsule Take 500 mg by mouth once daily. - tamsulosin (FLOMAX) 0.4 mg Take 0.4 mg by mouth once daily. - rosuvastatin (CRESTOR) 20 mg tablet Take 20 mg by mouth once daily. - predniSONE (DELTASONE) 20 mg tablet Take 1 tablet by mouth once daily. Problem List As Of Date 07/26/2022 Noted Resolved Sensation of pressure in bladder area [R39.89] 06/01/2022 Allergic rhinitis [J30.9] 06/01/2022 Angioneurotic edema [T78.3XXA] 07/15/2015 Unspecified asthma, uncomplicated [J45.909] 01/31/2022 Atherosclerosis of coronary artery [I25.10] 01/20/2016 Benign prostatic hyperplasia with urinary obstr*01/20/2016 Cervical spondylosis without myelopathy [M47.81*04/07/2019 Chest pain, unspecified [R07.9] 12/22/2021 Chronic frontal sinusitis [J32.1] 06/01/2022 Epididymitis [N45.1] 06/01/2022 Facial pressure [R44.8] 06/01/2022 Gastrointestinal hemorrhage [K92.2] 06/01/2022 High prostate specific antigen (PSA) [R97.20] 06/01/2022 History of asbestos exposure [Z77.090] 05/07/2017 Pure hypercholesterolemia [E78.00] 07/25/2018 Hypertension [I10] 07/15/2015 Impaired fasting glucose [R73.01] 01/31/2022 Increased frequency of urination [R35.0] 06/01/2022 Kidney stone [N20.0] 01/20/2016 Localized, 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.*12/13/2020 Nasal congestion [R09.81] 06/01/2022 Nocturia [R35.1] 06/01/2022 Osteoarthritis of right knee [M17.11] 08/14/2019 Other abnormal glucose [R73.09] 07/24/2021 Other detention (current) drug therapy [Z79.899]01/31/2022 Pain in limb [M79.609] 12/13/2020 Pain in testicle [N50.819] 06/01/2022 Pansinusitis [J32.4] 06/01/2022 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] 11/03/2018 Prediabetes [R73.03] 07/15/2015 Retrograde ejaculation [N53.14] 06/01/2022 Seasonal allergies [J30.2] 01/23/2019 Shortness of breath [R06.02] 12/22/2021 Thrombocytopenia (HCC) [D69.6] 06/01/2022 Low tension glaucoma of left eye, 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 Please advise if this can be done at follow up scheduled on 08/31/22. Kristin Macedo 07/20/2022 1:49 PM Signed Spoke with patient and advised to keep appt and that laser may possibly done that day. Booked laser room per MARGRET Per Dr Andre Porras MD You; Kiko Murillo Opth Nurse Triage 28 minutes ago (1:16 PM) I had checked the future appointments and must not have seen the already scheduled follow-up. Since he is coming in end of August, I would prefer to have it as a possible laser SLT OD Tamanna Porras MD 07/20/2022 1:15 PM Per MARGRET Mcguire LPN You; Anita Lopez 3 hours ago (9:59 AM) MARGRET Please do not double book at 12:30pm-instead use the 12:45pm laser slot Allergies As of Date: 07/20/2022 Noted Allergy Reaction ATORVASTATIN 12/28/2020 17 - Myalgia 16 - Unknown CERIVASTATIN 12/28/2020 17 - Myalgia 16 - Unknown COLESEVELAM 12/28/2020 16 - Unknown EZETIMIBE 12/28/2020 17 - Myalgia 16 - Unknown FLUVASTATIN 12/28/2020 17 - Myalgia 16 - Unknown METAXALONE 12/28/2020 16 - Unknown SEASONAL ALLERGIES 12/28/2020 14 - Other: See Comments SIMVASTATIN 12/28/2020 17 - Myalgia 16 - Unknown Date Reviewed: Never Reviewed Reason for Visit: Future Appointment [256] Prescriptions as of 07/20/2022 - keTORolac (ACULAR) 0.5 % ophthalmic solution Use 1 Drop in the left eye twice daily. - amLODIPine (NORVASC) 5 mg tablet Take 1 tablet by mouth once daily. - bisoprolol-hydroCHLOROthiaz gilma (ZIAC) 10-6.25 mg per tablet Take 1 tablet by mouth once daily. - amoxicillin (AMOXIL) 875 mg tablet Take 1 tablet by mouth once daily. - clarithromycin (BIAXIN) 500 mg Take 1 tablet by mouth once daily. - isosorbide mononitrate ER (IMDUR) 30 mg 24 hr tablet Take 1 tablet by mouth every morning. - lisinopril (ZESTRIL, PRINIVIL) 10 mg tablet Take 1 tablet by mouth once daily. - niacin 500 mg CR capsule Take 500 mg by mouth once daily. - tamsulosin (FLOMAX) 0.4 mg Take 0.4 mg by mouth once daily. - rosuvastatin (CRESTOR) 20 mg tablet Take 20 mg by mouth once daily. - predniSONE (DELTASONE) 20 mg tablet Take 1 tablet by mouth once daily. Facility-Administered Medications as of 07/20/2022 - brimonidine 0.2 % 1 Drop (ALPHAGAN) Problem List As Of Date 07/20/2022 Noted Resolved Sensation of pressure in bladder area [R39.89] 06/01/2022 Allergic rhinitis [J30.9] 06/01/2022 Angioneurotic edema [T78.3XXA] 07/15/2015 Unspecified asthma, uncomplicated [J45.909] 01/31/2022 Atherosclerosis of coronary artery [I25.10] 01/20/2016 Benign prostatic hyperplasia with urinary obstr*01/20/2016 Cervical spondylosis without myelopathy [M47.81*04/07/2019 Chest pain, unspecified [R07.9] 12/22/2021 Chronic frontal sinusitis [J32.1] 06/01/2022 Epididymitis [N45.1] 06/01/2022 Facial pressure [R44.8] 06/01/2022 Gastrointestinal hemorrhage [K92.2] 06/01/2022 High prostate specific antigen (PSA) [R97.20] 06/01/2022 History of asbestos exposure [Z77.090] 05/07/2017 Pure hypercholesterolemia [E78.00] 07/25/2018 Hypertension [I10] 07/15/2015 Impaired fasting glucose [R73.01] 01/31/2022 Increased frequency of urination [R35.0] 06/01/2022 Kidney stone [N20.0] 01/20/2016 Localized, 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.*12/13/2020 Nasal congestion [R09.81] 06/01/2022 Nocturia [R35.1] 06/01/2022 Osteoarthritis of right knee [M17.11] 08/14/2019 Other abnormal glucose [R73.09] 07/24/2021 Other intermodal customer service (current) drug therapy [Z79.899]01/31/2022 Pain in limb [M79.609] 12/13/2020 Pain in testicle [N50.819] 06/01/2022 Pansinusitis [J32.4] 06/01/2022 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] 11/03/2018 Prediabetes [R73.03] 07/15/2015 Retrograde ejaculation [N53.14] 06/01/2022 Seasonal allergies [J30.2] 01/23/2019 Shortness of breath [R06.02] 12/22/2021 Thrombocytopenia (HCC) [D69.6] 06/01/2022 Low tension glaucoma of left eye, 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 Glaucoma suspect of right eye [H40.001] 06/12/2022 Encounter Status:Closed by KRISTIN MACEDO on 07/20/22 [facility] 06-18-2022 CNPN Telephone (OPHTSK) JESSENIA PYLE ([id number]) 1945 M Date Time Provider Department 06/18/22 TAMANNA PORRAS OPHHERSON During your visit today, we recorded the following information about you: Debbie Shipley Pss 06/18/2022 10:26 AM Signed Faxed letter and mailed color copies to Lee Knowles, OD [address] [place] [id number] Via Allergies As of Date: 06/18/2022 Noted Allergy Reaction ATORVASTATIN 12/28/2020 17 - Myalgia 16 - Unknown CERIVASTATIN 12/28/2020 17 - Myalgia 16 - Unknown COLESEVELAM 12/28/2020 16 - Unknown EZETIMIBE 12/28/2020 17 - Myalgia 16 - Unknown FLUVASTATIN 12/28/2020 17 - Myalgia 16 - Unknown METAXALONE 12/28/2020 16 - Unknown SEASONAL ALLERGIES 12/28/2020 14 - Other: See Comments SIMVASTATIN 12/28/2020 17 - Myalgia 16 - Unknown Date Reviewed: Never Reviewed Reason for Visit: Letter [264] Prescriptions as of 06/18/2022 - amLODIPine (NORVASC) 5 mg tablet Take 1 tablet by mouth once daily. - bisoprolol-hydroCHLOROthiaz gilma (ZIAC) 10-6.25 mg per tablet Take 1 tablet by mouth once daily. - amoxicillin (AMOXIL) 875 mg tablet Take 1 tablet by mouth once daily. - clarithromycin (BIAXIN) 500 mg Take 1 tablet by mouth once daily. - isosorbide mononitrate ER (IMDUR) 30 mg 24 hr tablet Take 1 tablet by mouth every morning. - lisinopril (ZESTRIL, PRINIVIL) 10 mg tablet Take 1 tablet by mouth once daily. - niacin 500 mg CR capsule Take 500 mg by mouth once daily. - tamsulosin (FLOMAX) 0.4 mg Take 0.4 mg by mouth once daily. - rosuvastatin (CRESTOR) 20 mg tablet Take 20 mg by mouth once daily. - predniSONE (DELTASONE) 20 mg tablet Take 1 tablet by mouth once daily. Problem List As Of Date 06/18/2022 Noted Resolved Sensation of pressure in bladder area [R39.89] 06/01/2022 Allergic rhinitis [J30.9] 06/01/2022 Angioneurotic edema [T78.3XXA] 07/15/2015 Unspecified asthma, uncomplicated [J45.909] 01/31/2022 Atherosclerosis of coronary artery [I25.10] 01/20/2016 Benign prostatic hyperplasia with urinary obstr*01/20/2016 Cervical spondylosis without myelopathy [M47.81*04/07/2019 Chest pain, unspecified [R07.9] 12/22/2021 Chronic frontal sinusitis [J32.1] 06/01/2022 Epididymitis [N45.1] 06/01/2022 Facial pressure [R44.8] 06/01/2022 Gastrointestinal hemorrhage [K92.2] 06/01/2022 High prostate specific antigen (PSA) [R97.20] 06/01/2022 History of asbestos exposure [Z77.090] 05/07/2017 Pure hypercholesterolemia [E78.00] 07/25/2018 Hypertension [I10] 07/15/2015 Impaired fasting glucose [R73.01] 01/31/2022 Increased frequency of urination [R35.0] 06/01/2022 Kidney stone [N20.0] 01/20/2016 Localized, 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.*12/13/2020 Nasal congestion [R09.81] 06/01/2022 Nocturia [R35.1] 06/01/2022 Osteoarthritis of right knee [M17.11] 08/14/2019 Other abnormal glucose [R73.09] 07/24/2021 Other detention (current) drug therapy [Z79.899]01/31/2022 Pain in limb [M79.609] 12/13/2020 Pain in testicle [N50.819] 06/01/2022 Pansinusitis [J32.4] 06/01/2022 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] 11/03/2018 Prediabetes [R73.03] 07/15/2015 Retrograde ejaculation [N53.14] 06/01/2022 Seasonal allergies [J30.2] 01/23/2019 Shortness of breath [R06.02] 12/22/2021 Thrombocytopenia (HCC) [D69.6] 06/01/2022 Low tension glaucoma of left eye, 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 Glaucoma suspect of right eye [H40.001] 06/12/2022 Encounter Status:Closed by DEBBIE WINSTON on 06/18/22 Normal [facility] Office Visit (Cardiology)on 03-27-2022 Follow-up visit Diagnoses/Problems Assessed 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 Prescriptions will not be filled unless you are compliant with your follow up appointments or have a follow up appointment scheduled as per instruction of your physician. Refills should be requested at the time of your visit. PLAN: Through informed decision making process incorporating patients unique circumstances, the following treatment plan will be initiated: 1. Prescription drug management of cardiovascular medication for efficacy, adherence to treatment, side effect assessment and polypharmacy. Current treatment clinically warranted and to continue without modifications. 2. Return for follow-up; in the interim, contact the office if new symptoms arise. Dr. Lancaster Discussed the dynamic nature of coronary artery disease and the importance of seeking medical attention if new symptoms arise. Encourage healthy lifestyle choices including: - Heart Health Diet: eat plenty of nutrient-rich foods (fruits and veggies, whole grains, lean poultry and fish). Avoid saturated fats, trans fats and excess sodium and sugar. - Get at least 150 minutes per week of moderate-intensity aerobic activity. Brisk walking (at least 2.5 miles per hour), water aerobics, gardening, biking slower than 10 miles per hours. Any amount of movement is better than none. The simplest way to get moving and improve your health is to start walking. It's free, easy and can be done just about anywhere, even in place. Even if you have been sedentary for years, today is the day you can begin to make healthy changes in your life. Chief Complaint Routine follow-up, doing just fine JESSENIA PYLE is being seen for a 6 month follow-up of coronary artery disease, dyslipidemia and hypertension. Patient is ambulatory with steady gait. Last evaluated in clinic by Dr. Brock Aug 2021. A chronological chart review from last in clinic evaluation was completed. Compared to last cardiovascular evaluation, patient reports 'doing just fine' Patient denies any hospitalizations or significant changes to interval medical history since last office follow-up. In December 2021, called into the office to report worsening [place]. Subsequent MPI no ischemia/LVEF 73%, results reviewed. Patient attends to own ADLs and functional ADLs. Patient daily activity includes: walk 1.5 miles Patient ambulate in from parking lot without concerns. Patient denies change to exercise tolerance or functional capacity since last evaluation. Primary Prevention: HTN - optimal HLD - labs this year DM - none non-smoker History of Present Illness The patient states he has been generally doing well since the last visit. Comorbid Illnesses: hypertension and hyperlipidemia. Symptoms: denies chest pain at rest, denies exertional chest pain, resolved dyspnea, denies exercise intolerance, denies palpitations, denies edema, denies orthopnea, denies dizziness and denies orthostatic dizziness denies fatigue. Associated symptoms: no syncope. His symptoms do not limit his activities. Disease Monitoring: The patient has had a stable weight. Medications: the patient is adherent with his medication regimen. He denies medication side effects. Surgical History Problems History of Complete colonoscopy [id number] History of Foot surgery History of Knee surgery History of Lithotripsy History of Meniscus repair History of Renal lithotripsy History of Tonsillectomy Current Meds Medication NameInstruction amLODIPine Besylate 5 MG Oral TabletTAKE 1 TABLET DAILY. Aspirin 81 MG Oral Tablet Delayed ReleaseTAKE 1 TABLET DAILY. Bisoprolol-hydroCHLOROthiaz gilma 10-6.25 MG Oral TabletTAKE 1 TABLET DAILY. Isosorbide Mononitrate ER 30 MG Oral Tablet Extended Release 24 HourTake 1 tablet daily Lisinopril 10 MG Oral TabletTAKE 1 TABLET DAILY. Multi Vitamin TABSTAKE 1 TABLET DAILY. Nitroglycerin 0.4 MG Sublingua (more content not included)... Normal [facility] Albumin [Mass/volume] in Ser um or PlasmaOrdered By: Chris Pierre on 01-31-2022 Albumin [Mass/Vol] 3.9 g/dL 3.2-5.5 [facility] Basophils Auto (Bld) [#/Vol] Ordered By: Chris Pierre on 01-31-2022 Basophils (Bld) [#/Vol] 0.0 10*3/uL 0.0-0.2 [facility] Basophils/100 WBC Auto (Bld) Ordered By: Chris Pierre on 01-31-2022 Basophils/100 WBC (Bld) 0.6 % . [facility] Blood hemoglobin measurement (mass/volume)Ordered By: Chris Pierre on 01-31-2022 Hemoglobin (Bld) [Mass/Vol] 17.8 g/dL 13.0-17.0 [facility] Blood leukocytes automated c ount (number/volume)Ordered By: Chris Pierre on 01-31-2022 WBC (Bld) [#/Vol] 5.1 10*3/uL 4.5-11.0 [facility] Cholesterol [Mass/volume] in Serum or PlasmaOrdered By: Eduardo Brock on 01-31-2022 Cholesterol [Mass/Vol] 171 mg/dL 140-200 [facility] Comment on above: Chol less than 200 m g/dl low risk Chol 201-239 mg/dl borderline risk Chol 240 mg/dl and greater high risk Cholesterol in LDL Calc [Mas s/Vol]Ordered By: Eduardo Brock on 01-31-2022 Cholesterol in LDL [Mass/Vol] 97 mg/dL 0-100 [facility] Comment on above: LDL ATP III CLASSIFI CATION LDL less than 100 mg/dL Optimal LDL 100-129 mg/dL Near or above optimal LDL 130-159 mg/dL Borderline high LDL 160-189 mg/dL High LDL greater than 189 mg/dL Very high Cholesterol in VLDL Calc [Ma ss/Vol]Ordered By: Eduardo Brock on 01-31-2022 Cholesterol in VLDL [Mass/Vol] 26 mg/dL [facility] Creatinine and Glomerular fi ltration rate.predicted panel (S/P/Bld)Ordered By: Eduardo Brock on 01-31-2022 Creatinine [Mass/Vol] 1.00 mg/dL 0.64-1.27 [facility] Eosinophils Auto (Bld) [#/Vo l]Ordered By: Chris Pierre on 01-31-2022 Eosinophils (Bld) [#/Vol] 0.1 10*3/uL 0.0-0.45 [facility] Eosinophils/100 WBC Auto (Bl d)Ordered By: Chris Pierre on 01-31-2022 Eosinophils/100 WBC (Bld) 1.6 % . [facility] Erythrocyte distribution wid th Auto (RBC) [Ratio]Ordered By: Chris Pierre on 01-31-2022 Erythrocyte distribution width (RBC) [Ratio] 12.9 % 12.0-14.8 [facility] Estimated glomerular filtrat ion rate (GFR) non- AmericanOrdered By: Eduardo Brock on 01-31-2022 GFR/1.73 sq M.predicted among non-blacks MDRD (S/P/Bld) [Vol rate/Area] > 60 mL/Min [facility] Globulin Calc (S) [Mass/Vol] Ordered By: Chris Pierre on 01-31-2022 Globulin (S) [Mass/Vol] 2.6 g/dL [facility] Glucose mean value [Mass/vol ume] in Blood Estimated from glycated hemoglobinOrdered By: Chris Pierre on 01-31-2022 Average glucose Estimated from glycated hemoglobin (Bld) [Mass/Vol] 108 mg/dL [facility] Hematocrit Auto (Bld) [Volum e fraction]Ordered By: Chris Pierre on 01-31-2022 Hematocrit (Bld) [Volume fraction] 51.4 % 38.8-50.0 [facility] Hemoglobin A1c percentageOrd ered By: Chris Pierre on 01-31-2022 HbA1c (Bld) [Mass fraction] 5.4 % 4.3-5.6 [facility] Comment on above: Increased risk for d iabetes: 5.7 - 6.4 diabetes: >6.4 glycemic control for adults with diabetes: <7.0 Laboratory - Chemistry and C hemistry - challengeon 01-31-2022 Cholesterol [Mass/Vol] 171\S\171 Normal 140-200 [facility] 600 DO Work Phone: Comment on above: Chol less than 200 m g/dl low risk Chol 201-239 mg/dl borderline risk Chol 240 mg/dl and greater high risk Cholesterol in LDL [Mass/Vol] 97\S\97 Normal 0-100 [facility] 600 DO Work Phone: Comment on above: LDL ATP III CLASSIFI CATION LDL less than 100 mg/dL Optimal LDL 100-129 mg/dL Near or above optimal LDL 130-159 mg/dL Borderline high LDL 160-189 mg/dL High LDL greater than 189 mg/dL Very high Laboratory - Hematology and Cell countsOrdered By: Chris Pierre on 01-31-2022 Nucleated RBC/100 WBC (Bld) [Ratio] 0.2 % 0-0.5 [facility] Lymphocytes Auto (Bld) [#/Vo l]Ordered By: Chris Pierre on 01-31-2022 Lymphocytes (Bld) [#/Vol] 1.0 10*3/uL 1.00-4.8 [facility] Lymphocytes/100 WBC Auto (Bl d)Ordered By: Chris Pierre on 01-31-2022 Lymphocytes/100 WBC (Bld) 19.4 % . [facility] MCH Auto (RBC) [Entitic mass ]Ordered By: Chris Pierre on 01-31-2022 MCH (RBC) [Entitic mass] 33.3 pg 27.5-35.2 [facility] MCHC Auto (RBC) [Mass/Vol]Or dered By: Chris Pierre on 01-31-2022 MCHC (RBC) [Mass/Vol] 34.7 g/dL 32.5-35.6 [facility] MCV Auto (RBC) [Entitic vol] Ordered By: Chris Pierre on 01-31-2022 MCV (RBC) [Entitic vol] 96.2 fL 83.5-101 [facility] Monocytes Auto (Bld) [#/Vol] Ordered By: Chris Pierre on 01-31-2022 Monocytes (Bld) [#/Vol] 0.5 10*3/uL 0.0-0.8 [facility] Monocytes/100 WBC Auto (Bld) Ordered By: Chris Pierre on 01-31-2022 Monocytes/100 WBC (Bld) 10.5 % . [facility] Neutrophils Auto (Bld) [#/Vo l]Ordered By: Chris Pierre on 01-31-2022 Neutrophils (Bld) [#/Vol] 3.5 10*3/uL 1.8-7.7 [facility] Neutrophils/100 WBC Auto (Bl d)Ordered By: Chris Pierre on 01-31-2022 Neutrophils/100 WBC (Bld) 67.9 % . [facility] No Panel InformationOrdered By: Jesusitakenyatta Small on 01-31-2022 Prostate Specific Antigen Total 1.070 ng/mL 0.000-4.00 0 [facility] No Panel InformationOrdered By: Eduardo Brock on 01-31-2022 Estimated GFR () > 60 mL/Min [facility] Comment on above: GFR estimated refere nce range: According to KDOQI guidelines, <60 ml/min/1.73m2 is sufficient to diagnose a patient with chronic kidney disease. Pharmacy Creatinine Clearance (Chem N/A [facility] No Panel Informationon 01-31 9.2\S\9.2 Normal 8.2-10.2 [facility] DO Work Phone: 25.7\S\25.7 Normal 22.0-30.0 [facility] 600 DO Work Phone: 103\S\103 Normal 95-114 [facility] tr[facility] 600 DO Work Phone: 4.0\S\4.0 Normal 3.5-5.1 [facility] 600 DO Work Phone: [phone] 139\S\139 Normal 136-146 [facility] tr[facility] 600 DO Work Phone: > 60 Normal [facility] trinh 600 DO Work Phone: Comment on above: GFR estimated refere nce range: According to KDOQI guidelines, <60 ml/min/1.73m2 is sufficient to diagnose a patient with chronic kidney disease. 1.00\S\1.00 Normal 0.64-1.27 [facility] 600 DO Work Phone: 17\S\17 Normal 9-23 [facility] trin[facility] 600 DO Work Phone: [phone] 143\S\143 above high threshold 70-100 [facility] trinh 600 DO Work Phone: Comment on above: Random Glucose Refer ence Range is dependent on time and content of last meal. Glucose of more than 200 mg/dL in a nonstressed, ambulatory subject supports the diagnosis of Diabetes Mellitus. ADA recommended reference range 29\S\29 Normal 10-42 [facility] trinh 600 DO Work Phone: 36\S\36 Normal 10-60 [facility] tr[facility] 600 DO Work Phone: 3.6\S\3.6 Normal <5.0 [facility] trin[facility] 600 DO Work Phone: Comment on above: PERFORMED BY:[place] [address] [place] [id number] MEDICAL DIRECTORGWEN CRUZ M.D. 26\S\26 Normal [facility] trinh Higuera DO Work Phone: 130\S\130 Normal 35-149 [facility] trinh Higuera DO Work Phone: Comment on above: TRIG ATP III CLASSIF ICATION TRIG less than 150 mg/dL Normal TRIG 150-199 mg/dL Borderline high TRIG 200-500 mg/dL High TRIG greater than 500 mg/dL Very high Standard traceable to the Center for Disease Conrtrol and Prevention (CDC) test method. 48\S\48 Normal 29-71 [facility] trinh Higuera DO Work Phone: Comment on above: HDL CHOL ATP-III CLA SSIFICATION Cardiovascular Risk HDL > or equal to 60 mg/dL LOW HDL < 40 mg/dL HIGH Platelet mean volume Auto (B ld) [Entitic vol]Ordered By: Chris Pierre on 01-31-2022 Platelet mean volume (Bld) [Entitic vol] 10.9 fL 6.6-10.1 [facility] Platelets Auto (Bld) [#/Vol] Ordered By: Chris Pierre on 01-31-2022 Platelets (Bld) [#/Vol] 137 10*3/uL 150-450 [facility] Protein [Mass/volume] in Ser um or PlasmaOrdered By: Chris Pierre on 01-31-2022 Protein [Mass/Vol] 6.5 g/dL 6.1-7.9 [facility] RBC Auto (Bld) [#/Vol]Ordere d By: Chris Pierre on 01-31-2022 RBC (Bld) [#/Vol] 5.35 10*6/uL 3.90-5.60 [facility] Serum or plasma alanine kee otransferase measurement without P-5'-P (enzymatic activiOrdered By: Eduardo Brock on 01-31-2022 ALT No additional P-5'-P [Catalytic activity/Vol] 36 U/L 10-60 [facility] Serum or plasma albumin/glob ulin mass ratioOrdered By: Chris Pierre on 01-31-2022 Albumin/Globulin [Mass ratio] 1.5 {ratio} [facility] Serum or plasma alkaline janes sphatase measurement (enzymatic activity/volume)Ordered By: Chris Pierre on 01-31-2022 ALP [Catalytic activity/Vol] 59 U/L 32-92 [facility] Serum or plasma aspartate am inotransferase measurement (enzymatic activity/volume)Ordered By: Eduardo Brock on 01-31-2022 AST [Catalytic activity/Vol] 29 U/L 10-42 [facility] Serum or plasma calcium evelyn urement (mass/volume)Ordered By: Eduardo Brock on 01-31-2022 Calcium [Mass/Vol] 9.2 mg/dL 8.2-10.2 [facility] Serum or plasma chloride neto surement (moles/volume)Ordered By: Eduardo Brock on 01-31-2022 Chloride [Moles/Vol] 103 mmol/L 95-114 [facility] Serum or plasma glucose evelyn urement (mass/volume)Ordered By: Eduardo Brock on 01-31-2022 Glucose [Mass/Vol] 143 mg/dL 70-100 [facility] Comment on above: ADA recommended refe rence range Random Glucose Reference Range is dependent on time and content of last meal. Glucose of more than 200 mg/dL in a nonstressed, ambulatory subject supports the diagnosis of Diabetes Mellitus. Serum or plasma high density lipoprotein (HDL) cholesterol measurementOrdered By: Eduardo Brock on 01-31-2022 Cholesterol in HDL [Mass/Vol] 48 mg/dL 29-71 [facility] Comment on above: HDL CHOL ATP-III CLA SSIFICATION Cardiovascular Risk HDL > or equal to 60 mg/dL LOW HDL < 40 mg/dL HIGH Serum or plasma potassium me asurement (moles/volume)Ordered By: Eudardo Brock on 01-31-2022 Potassium [Moles/Vol] 4.0 mmol/L 3.5-5.1 [facility] Serum or plasma sodium measu rement (moles/volume)Ordered By: Eduardo Brock on 01-31-2022 Sodium [Moles/Vol] 139 mmol/L 136-146 [facility] Serum or plasma total biliru bin measurement (mass/volume)Ordered By: Chris Pierre on 01-31-2022 Bilirubin [Mass/Vol] 1.5 mg/dL 0.3-1.2 [facility] Comment on above: Samples from patient s who have taken Naproxen have shown spurious elevation in Total Bilirubin levels. A metabolite of Naproxen, O-desmethylnaproxen, has been shown to interfere with the Mariam-Mindy method for measuring Total Bilirubin. Serum or plasma total carbon dioxide measurement (moles/volume)Ordered By: Eduardo Brock on 01-31-2022 CO2 [Moles/Vol] 25.7 mmol/L 22.0-30.0 [facility] Serum or plasma total choles terol/high density lipoprotein (HDL) cholesterol mass ratOrdered By: Eduardo Brock on 01-31-2022 Cholesterol.total/Chol esterol in HDL [Mass ratio] 3.6 {ratio} <5.0 [facility] Serum or plasma urea nitroge n measurement (mass/volume)Ordered By: Eduardo Brock on 01-31-2022 Urea nitrogen [Mass/Vol] 17 mg/dL 9-23 [facility] TSH DL <= 0.005 mIU/L QnOrde red By: Chris Pierre on 01-31-2022 TSH Qn 1.04 m[IU]/L 0.45-5.33 [facility] Triglyceride [Mass/volume] i n Serum or PlasmaOrdered By: Eduardo Brock on 01-31-2022 Triglyceride [Mass/Vol] 130 mg/dL 35-149 [facility] Comment on above: TRIG ATP III CLASSIF ICATION TRIG less than 150 mg/dL Normal TRIG 150-199 mg/dL Borderline high TRIG 200-500 mg/dL High TRIG greater than 500 mg/dL Very high Standard traceable to the Center for Disease Conrtrol and Prevention (CDC) test method. Urine microalbumin measureme nt with detection limit of 20 mg/L or less (mass/volume)Ordered By: Chris Pierre on 01-31-2022 Albumin DL <= 20 mg/L (U) [Mass/Vol] 3.5 mg/dL 0.0-1.8 [facility] No Panel Informationon 12-22 Normal -[facility] [place] Work Phone: Complete Blood Count with Au to Diffon 10-18-2021 Basophils (Bld) [#/Vol] 0.05 10*3/uL Normal 0.00-0.20 [facility] Biology Specimen Technician Comment on above: Performed By: #### C BCAD, CMP #### [facility] [address], [place] [id number] Basophils/100 WBC (Bld) 0.7 % Normal [facility] Specialist Comment on above: Performed By: #### C BCAEhsan, CMP #### [facility] [address], [place] [id number] Eosinophils (Bld) [#/Vol] 0.12 10*3/uL Normal 0.02-0.50 [facility] Specialist Comment on above: Performed By: #### C BCAD, CMP #### [facility] [address], [place] [id number] Eosinophils/100 WBC (Bld) 1.6 % Normal [facility] Specialist Comment on above: Performed By: #### C BCAEhsan, CMP #### [facility] [address], [place] [id number] Erythrocyte distribution width (RBC) [Ratio] 13.4 % Normal 11.0-15.0 [facility] Specialist Comment on above: Performed By: #### C BCAD, CMP #### [facility] [address], [place] [id number] Hematocrit (Bld) [Volume fraction] 52.5 % High 38.5-50.0 [facility] Specialist Comment on above: Performed By: #### C BCAD, CMP #### [facility] [address], [place] [id number] Hemoglobin (Bld) [Mass/Vol] 17.9 g/dL High 13.0-17.1 [facility] Specialist Comment on above: Performed By: #### C BCAD, CMP #### [facility] [address], [place] [id number] Lymphocytes (Bld) [#/Vol] 1.5 10*3/uL Normal 0.9-3.9 [facility] Specialist Comment on above: Performed By: #### C BCAD, CMP #### [facility] [address], [place] [id number] Lymphocytes/100 WBC (Bld) 20.6 % Normal [facility] Specialist Comment on above: Performed By: #### C BCAD, CMP #### [facility] [address], [place] [id number] MCH (RBC) [Entitic mass] 32.7 pg Normal 27.0-33.0 [facility] Specialist Comment on above: Performed By: #### C BCAD, CMP #### [facility] [address], [place] [id number] MCHC (RBC) [Mass/Vol] 34.1 g/dL Normal 32.0-36.0 [facility] Comment on above: Performed By: #### C BCAD, CMP #### [facility] [address], [place] [id number] MCV (RBC) [Entitic vol] 96 fL Normal 80-100 [facility] Specialist Comment on above: Performed By: #### C BCAD, CMP #### [facility] [address], [place] [id number] Monocytes (Bld) [#/Vol] 0.8 10*3/uL Normal 0.2-0.9 [facility] Specialist Comment on above: Performed By: #### C BCAD, CMP #### [facility] [address], [place] [id number] Monocytes/100 WBC (Bld) 10.8 % Normal [facility] Comment on above: Performed By: #### C BCAD, CMP #### [facility] [address], [place] [id number] Neutrophils (Bld) [#/Vol] 4.9 10*3/uL Normal 1.5-7.8 [facility] Comment on above: Performed By: #### C BCAD, CMP #### [facility] [address], [place] [id number] Neutrophils/100 WBC (Bld) 65.8 % Normal [facility] Comment on above: Performed By: #### C BCAD, CMP #### [facility] [address], [place] [id number] Platelet mean volume (Bld) [Entitic vol] 12.60 fL High 7.50-12.50 [facility] Comment on above: Performed By: #### C BCAD, CMP #### [facility] [address], [place] [id number] Platelets (Bld) [#/Vol] 158 10*3/uL Normal 140-400 [facility] Specialist Comment on above: Performed By: #### C BCAD, CMP #### [facility] [address], [place] [id number] RBC (Bld) [#/Vol] 5.47 10*6/uL Normal 4.20-5.80 [facility] Comment on above: Performed By: #### C BCAD, CMP #### [facility] [address], [place] [id number] RDW-SD 47.4 fL Normal 37.0-50.0 [facility] Specialist Comment on above: Performed By: #### C BCAD, CMP #### [facility] [address], [place] [id number] WBC (Bld) [#/Vol] 7.4 10*3/uL Normal 3.8-11.0 [facility] Comment on above: Performed By: #### C BCAD, CMP #### [facility] [address], [place] [id number] Comprehensive Metabolic Pane gabe 03-09-2022 Albumin [Mass/Vol] 4.6 g/dL Normal 3.6-5.1 [facility] Comment on above: Performed By: #### C BCAD, CMP #### [facility] [address], [place] [id number] Albumin/Globulin [Mass ratio] 2.2 {ratio} Normal 1.0-2.5 [facility] Specialist Comment on above: Performed By: #### C BCAD, CMP #### [facility] [address], [place] [id number] ALP [Catalytic activity/Vol] 79 U/L Normal 40-129 [facility] Specialist Comment on above: Performed By: #### C BCAD, CMP #### [facility] [address], [place] [id number] ALT [Catalytic activity/Vol] 50 U/L High 9-46 [facility] Specialist Comment on above: Result Comment: 07/12 Female reference range changed. Performed By: #### C BCAD, CMP #### [facility] [address], [place] [id number] Anion gap [Moles/Vol] 20 mmol/L Normal 12-20 [facility] Comment on above: Result Comment: Effe ctive 08/17/2019 reference range changed. Performed By: #### C BCAD, CMP #### [facility] [address], [place] [id number] AST [Catalytic activity/Vol] 34 U/L Normal 10-40 [facility] Comment on above: Performed By: #### C BCAD, CMP #### [facility] [address], [place] [id number] Bilirubin [Mass/Vol] 1.22 mg/dL High 0.30-1.20 [facility] Comment on above: Performed By: #### C BCAD, CMP #### [facility] [address], [place] [id number] BUN/CREA 21 Ratio Normal 6-22 [facility] Specialist Comment on above: Performed By: #### C BCAD, CMP #### [facility] [address], [place] [id number] Calcium [Mass/Vol] 9.6 mg/dL Normal 8.6-10.2 [facility] Biology Specimen Technician Comment on above: Performed By: #### C BCAD, CMP #### [facility] [address], [place] [id number] Chloride [Moles/Vol] 103 mmol/L Normal 98-107 [facility] Comment on above: Performed By: #### C BCAD, CMP #### [facility] [address], [place] [id number] CO2 [Moles/Vol] 24 mmol/L Normal 20-31 [facility] Comment on above: Performed By: #### C BCAD, CMP #### [facility] [address], [place] [id number] Creatinine [Mass/Vol] 0.9 mg/dL Normal 0.7-1.4 [facility] Comment on above: Performed By: #### C BCAD, CMP #### [facility] [address], [place] [id number] eGFRAA 101 mL/min/1.73m2 Normal >60 [facility] Comment on above: Performed By: #### C BCAD, CMP #### [facility] [address], [place] [id number] eGFRNAA 83 mL/min/1.73m2 Normal >60 [facility] Specialist Comment on above: Performed By: #### C BCAD, CMP #### [facility] [address], [place] [id number] Globulin (S) [Mass/Vol] 2.1 g/dL Normal 1.9-3.7 [facility] Specialist Comment on above: Performed By: #### C BCAD, CMP #### [facility] [address], [place] [id number] Glucose [Mass/Vol] 109 mg/dL High 65-99 Elizabeth castelan [place] [facility] Specimen Technician Comment on above: Result Comment: For FASTING Glucose --- ADA reference ranges: Normal 65-99 mg/dl Prediabetes 100-125 Diabetes >/= 126 Performed By: #### C BCAD, CMP #### [facility] [address], [place] [id number] Potassium [Moles/Vol] 5.0 mmol/L Normal 3.5-5.5 Rebecca garcia [place] [facility] Specimen Technician Comment on above: Result Comment: Spec nuno is hemolyzed. Results may be affected. Performed By: #### C BCAD, CMP #### [facility] [address], [place] [id number] Protein [Mass/Vol] 6.7 g/dL Normal 6.1-8.1 Elizabeth castelan [place] [facility] Specimen Technician Comment on above: Performed By: #### C BCAD, CMP #### [facility] [address], [place] [id number] Sodium [Moles/Vol] 142 mmol/L Normal 135-146 Elizabeth castelan [place] [facility] Specimen Technician Comment on above: Performed By: #### C BCAD, CMP #### [facility] [address], [place] [id number] Urea nitrogen [Mass/Vol] 19 mg/dL Normal 7-25 [facility] Comment on above: Performed By: #### C BCAD, CMP #### [facility] [address], [place] [id number] Tobacco Screening.on 022 Fall risk assessment a) No falls within the last year [facility] [employer] DO Work Phone: Tobacco use status CP b) No [facility] [employer] DO Work Phone: XR KUB 1 VIEWon 03-16-2021 XR KUB 1 VIEW EXAMINATION: XR KUB 1 VIEW HISTORY: Urolithiasis COMPARISON: No relevant comparison available. FINDINGS: KIDNEY/URETER - RIGHT: Several small stones within the right kidney. KIDNEY/URETER - LEFT: No visible renal or ureteral calcifications. PELVIS: No visible ureteral calcifications. Any visible calcifications favor phleboliths. BOWEL: No abnormal dilation or deviation. BONES: No acute abnormality. OTHER: Negative. No abnormal gaseous collections. IMPRESSION: 1. Right nephrolithiasis. No comparison studies. 2. Left kidney is obscured by dense overlying bowel content. No visible stones. Electronically authenticated by: SUE CHARLTON Date: 2021-03-16 16:20 Normal [facility] CBC AUTO DIFFon 03-08-2021 BASO # 0.0 103/ul Normal 0.0-0.1 [facility] Comment on above: Performed By: #### C BC #### [facility] [address] [place], [place] [id number] Phyllis Debbie Basophils/100 WBC (Bld) 0.7 % Normal 0.2-2.0 [facility] Comment on above: Performed By: #### C BC #### [facility] [address] [place], [place] [id number] Phyllis Debbie EO # 0.1 103/ul Normal 0.0-0.7 [facility] Comment on above: Performed By: #### C BC #### [facility] [address] [place], [place] [id number] Phyllis Debbie Eosinophils/100 WBC (Bld) 1.7 % Normal 0.9-7.0 [facility] Comment on above: Performed By: #### C BC #### [facility] [address] [place] [address] Phyllis Debbie Erythrocyte distribution width (RBC) [Ratio] 13.1 % Normal 11.0-15.0 [facility] Comment on above: Performed By: #### C BC #### [facility] [address] [place], [place] [id number] Phyllis Debbie Hematocrit (Bld) [Volume fraction] 49.7 % Normal 42.0-54.0 [facility] Comment on above: Performed By: #### C BC #### [facility] [address] [place], [place] [id number] Phyllis Debbie Hemoglobin (Bld) [Mass/Vol] 17.7 g/dL Normal 14.0-18.0 [facility] Comment on above: Performed By: #### C BC #### [facility] [address] [place] [address] Phyllis Debbie IG # 0.02 10e3/ul Normal 0.00-0.03 [facility] Comment on above: Performed By: #### C BC #### [facility] [address] [place], [place] [id number] Phyllis Debbie IG % 0.3 % Normal 0.0-0.5 [facility] Comment on above: Performed By: #### C BC #### [facility] [address] [place], [place] [id number] Phyllis Debbie LYMPH # 1.1 103/ul Critically low 1.2-3.8 [facility] Comment on above: Performed By: #### C BC #### [facility] [address] [place], [place] [id number] Phyllis Debbie Lymphocytes/100 WBC (Bld) 19.0 % Critically low 20.5-60.0 [facility] Comment on above: Performed By: #### C BC #### [facility] [address] [place], [place] [id number] Phyllisamish Lewis MANUAL DIFF REQ NO Normal [facility] Comment on above: Performed By: #### C BC #### [facility] [address] [place] [address] Phyllisamish Lewis MCH (RBC) [Entitic mass] 34.0 pg Normal 25.9-34.0 [facility] Comment on above: Performed By: #### C BC #### [facility] [address] [place] [address] Phyllisamish Lewis MCHC (RBC) [Mass/Vol] 35.6 g/dL Critically high 29.9-35.2 [facility] Comment on above: Performed By: #### C BC #### [facility] [address] [place] [address] Phyllisamish Lewis MCV (RBC) [Entitic vol] 95.6 fL Critically high 80.0-94.0 [facility] Comment on above: Performed By: #### C BC #### [facility] [address] [place], [place] [id number] Phyllis Debbie MONO # 0.6 103/ul Normal 0.3-0.8 [facility] Comment on above: Performed By: #### C BC #### [facility] [address] [place], [place] [id number] Phyllis Debbie Monocytes/100 WBC (Bld) 9.8 % Normal 1.7-12.0 [facility] Comment on above: Performed By: #### C BC #### [facility] [address] [place], [place] [address] Phyllisamish Schaeferen NEUT # 4.0 103/ul Normal 1.4-6.5 [facility] Comment on above: Performed By: #### C BC #### [facility] [address] [place] [id number] Phyllis Lewis Neutrophils/100 WBC (Bld) 68.5 % Normal 43.0-75.0 [facility] Comment on above: Performed By: #### C BC #### [facility] [address] [place], [place] [id number] Phyllisamish Lewis Platelet mean volume (Bld) [Entitic vol] 11.9 fL Normal 9.5-13.5 [facility] Comment on above: Performed By: #### C BC #### [facility] [address] [place], [place] [id number] Phyllis Debbie PLT 135 103/ul Critically low 150-450 [facility] Comment on above: Performed By: #### C BC #### [facility] [address] [place], [place] [id number] Phyllis Debbie RBC 5.20 106/ul Normal 4.70-6.10 [facility] Comment on above: Performed By: #### C BC #### [facility] [address] [place], [place] [id number] Phyllis Debbie WBC 5.8 103/ul Normal 4.0-11.0 [facility] Comment on above: Performed By: #### C BC #### [facility] [address] [place], [place] [id number] Phyllis Lewis PROF CHEM 8 (BAS METB)on Anion gap [Moles/Vol] 6.7 mmol/L Normal [facility] Comment on above: Performed By: #### B MP #### [facility] [address] [place], [place] [id number] Phyllis Debbie Calcium [Mass/Vol] 9.0 mg/dL Normal 8.4-10.2 [facility] Comment on above: Performed By: #### B MP #### [facility] [address] [place] [id number] Phyllis Debbie Chloride [Moles/Vol] 103 mmol/L Normal 98-107 [facility] Comment on above: Performed By: #### B MP #### [facility] [address] [place] [address] Phyllis Debbie CO2 [Moles/Vol] 32.0 mmol/L Critically high 22.0-30.0 [facility] Comment on above: Performed By: #### B MP #### [facility] [address] [place] [id number] Phyllis Debbie Creatinine [Mass/Vol] 0.93 mg/dL Normal 0.66-1.25 [facility] Comment on above: Performed By: #### B MP #### [facility] [address] [place], [place] [id number] Phyllis Debbie EGFR-AF VINCENTIAN >60 Normal >=60 [facility] Comment on above: Performed By: #### B MP #### [facility] [address] [place] [address] Phyllis Debbie EGFR-NON AF VINCENTIAN >60 Normal >=60 [facility] Comment on above: Performed By: #### B MP #### [facility] [address] [place] [address] Phyllis Debbie Glucose [Mass/Vol] 119 mg/dL Critically high 74-106 [facility] Comment on above: Performed By: #### B MP #### [facility] [address] [place] [address] Phyllis Debbie Potassium [Moles/Vol] 4.7 mmol/L Normal 3.4-5.0 [facility] Comment on above: Performed By: #### B MP #### [facility] [address] [place] [address] Phyllis Debbie Sodium [Moles/Vol] 137 mmol/L Normal 137-145 [facility] Comment on above: Performed By: #### B MP #### [facility] [address] [place] [address] Phyllis Debbie Urea nitrogen [Mass/Vol] 19.0 mg/dL Normal 9.0-20.0 [facility] Comment on above: Performed By: #### B MP #### [facility] [address] [place], [place] [id number] Phyllis Lewis Urea nitrogen/Creatinine [Mass ratio] 20.4 mg/mg Normal [facility] Comment on above: Performed By: #### B MP #### [facility] [address] [place], [place] [id number] Phyllis Lewis PROTIMEon 03-08-2021 INR Coag (PPP) [Relative time] 1.06 {INR} Normal [facility] Comment on above: Performed By: #### P T, PTT #### [facility] [address] [place], [place] [id number] Phyllis Lewis INR GUIDELINES SEE BELOW Normal [facility] Comment on above: Result Comment: LUIS RED INR: 2.0 - 3.0 CONDITIONS NOT LISTED BELOW 2.5 - 3.5 FOR PROSTHETIC HEART VALVE REPLACEMENT 2.5 - 3.5 RECURRENT THROMBOSIS Performed By: #### P T, PTT #### [facility] [address] [place], [place] [id number] Phyllis Debbie PT Coag (PPP) [Time] 11.4 s Normal 9.0-11.6 [facility] Comment on above: Performed By: #### P T, PTT #### [facility] [address] [place], [place] [id number] Phyllis Debbie PTTon 03-08-2021 aPTT Coag (Bld) [Time] 29.5 s Normal 22.3-36.2 [facility] Comment on above: Performed By: #### P T, PTT #### [facility] [address] [place], [place] [id number] Phyllis Lewis No Panel Information [facility] Vital Signs Date Time Vital Sign Value Performing Clinician Facility 08-25-2024 10:58-0500 Body mass index (BMI) [Ratio] 26.42 kg/m2 Spencer Zarate GREEN HIDE INSPECTOR Work Phone: [facility] 08-25-2024 10:58-0500 Body weight 95.25 kg Spencer Zarate GREEN HIDE INSPECTOR Work Phone: [facility] 08-25-2024 10:58-0500 Diastolic blood pressure 78 mm[Hg] Spencer Buitragoos GREEN HIDE INSPECTOR Work Phone: [facility] 08-25-2024 10:58-0500 Heart rate 91 /min Spencer Buitragoos GREEN HIDE INSPECTOR Work Phone: [facility] 08-25-2024 10:58-0500 SaO2% (BldA) [Mass fraction] 97 % Spencer Zarate GREEN HIDE INSPECTOR Work Phone: [facility] 08-25-2024 10:58-0500 Systolic blood pressure 130 mm[Hg] Spencer Buitragoos GREEN HIDE INSPECTOR Work Phone: [facility] 07-31-2024 11:13-0500 Body height 187.96 cm Chris Pierre DO Work Phone: [facility] 07-31-2024 11:13-0500 Body mass index (BMI) [Ratio] 27.2 kg/m2 Chris Pierre DO Work Phone: [facility] 07-31-2024 11:13-0500 Body weight 96.16 kg Chris Pierre DO Work Phone: [facility] 07-31-2024 11:13-0500 Diastolic blood pressure 84 mm[Hg] Chris Pierre DO Work Phone: [facility] 07-31-2024 11:13-0500 Heart rate 94 /min Chris Pierre DO Work Phone: [facility] 07-31-2024 11:13-0500 Respiratory rate 18 /min Chris Pierre DO Work Phone: [facility] 07-31-2024 11:13-0500 SaO2% (BldA) [Mass fraction] 98 % Chris Pierre DO Work Phone: [facility] 07-31-2024 11:13-0500 Systolic blood pressure 166 mm[Hg] Chris Pierre DO Work Phone: [facility] 07-29-2024 10:38-0500 Body mass index (BMI) [Ratio] 26.68 kg/m2 Chris Pierre DO Work Phone: [facility] 07-29-2024 10:38-0500 Body weight 96.16 kg Chris Pierre DO Work Phone: [facility] 07-29-2024 10:38-0500 Heart rate 90 /min Chris Pierre DO Work Phone: [facility] 07-29-2024 10:38-0500 SaO2% (BldA) [Mass fraction] 98 % Chris Pierre DO Work Phone: [facility] 05-12-2024 09:08-0400 Diastolic blood pressure 82 mm[Hg] Chris Pierre DO Work Phone: [facility] 05-12-2024 09:08-0400 Systolic blood pressure 128 mm[Hg] Chris Pierre DO Work Phone: [facility] 05-12-2024 08:47-0400 Body height 189.9 cm Chirs Pierre DO Work Phone: [facility] 05-12-2024 08:47-0400 Body mass index (BMI) [Ratio] 26.55 kg/m2 Chris Pierre DO Work Phone: [facility] 05-12-2024 08:47-0400 Body weight 95.71 kg Chris Pierre DO Work Phone: [facility] 05-12-2024 08:47-0400 Heart rate 97 /min Chris Pierre DO Work Phone: [facility] 05-12-2024 08:47-0400 SaO2% (BldA) [Mass fraction] 98 % Chris Pierre DO Work Phone: [facility] 04-01-2024 13:47-0400 Blood Pressure Location Jesusita SMALL [facility] 04-01-2024 13:47-0400 Body temperature 98.6 [degF] Jesusita SMALL [facility] 04-01-2024 13:47-0400 Diastolic blood pressure 88 mm[Hg] Jesusitakenyatta SMALL [facility] 04-01-2024 13:47-0400 Heart rate 85 /min Jesusitakenyatta SMALL [facility] 04-01-2024 13:47-0400 Respiratory rate 18 /min Jesusitakenyatta SMALL [facility] 04-01-2024 13:47-0400 Systolic blood pressure 137 mm[Hg] Jesusita SMALL [facility] 03-26-2024 19:10-0400 Diastolic blood pressure 111 mm[Hg] [facility] 03-26-2024 19:10-0400 Heart rate 91 /min [facility] 03-26-2024 19:10-0400 Mean blood pressure 129 mm[Hg] [facility] 03-26-2024 19:10-0400 Respiratory rate 16 /min [facility] 03-26-2024 19:10-0400 SaO2% (BldA) [Mass fraction] 93 % [facility] 03-26-2024 19:10-0400 Systolic blood pressure 164 mm[Hg] [facility] 03-26-2024 18:45-0400 Diastolic blood pressure 113 mm[Hg] [facility] 03-26-2024 18:45-0400 Heart rate 80 /min [facility] 03-26-2024 18:45-0400 Mean blood pressure 131 mm[Hg] [facility] [facility] 03-26-2024 18:45-0400 Respiratory rate 16 /min [facility] 03-26-2024 18:45-0400 SaO2% (BldA) [Mass fraction] 90 % [facility] 03-26-2024 18:45-0400 Systolic blood pressure 167 mm[Hg] [facility] 03-26-2024 18:00-0400 Diastolic blood pressure 95 mm[Hg] [facility] 03-26-2024 18:00-0400 Heart rate 82 /min [facility] 03-26-2024 18:00-0400 Mean blood pressure 116 mm[Hg] [facility] 03-26-2024 18:00-0400 SaO2% (BldA) [Mass fraction] 95 % [facility] 03-26-2024 18:00-0400 Systolic blood pressure 159 mm[Hg] [facility] 03-26-2024 16:11-0400 Body temperature 97.7 [degF] [facility] 03-26-2024 16:11-0400 Heart rate 76 /min [facility] 02-20-2024 18:13-0400 Diastolic blood pressure 92 mm[Hg] DO Chris Pierre Work Phone: [facility] 02-20-2024 18:13-0400 Heart rate 74 /min DO Chris Ignacio Work Phone: [facility] 02-20-2024 18:13-0400 Respiratory rate 18 /min DO Chris Ignacio Work Phone: [facility] 02-20-2024 18:13-0400 SaO2% (BldA) [Mass fraction] 95 % DO Chris Pierre Work Phone: [facility] 02-20-2024 18:13-0400 Systolic blood pressure 137 mm[Hg] DO Chris Ignacio Work Phone: [facility] 02-20-2024 16:36-0400 Body temperature 97.8 [degF] DO Chris Pierre Work Phone: [facility] 02-20-2024 12:45-0400 Body height 187.96 cm DO Chris Pierre Work Phone: [facility] 02-20-2024 12:45-0400 Body weight 98.6 kg DO Chris Pierre Work Phone: [facility] 09-29-2023 02:03-0500 Diastolic blood pressure 100 mm[Hg] DO Chrismyke Pierre Work Phone: [facility] 09-29-2023 02:03-0500 Systolic blood pressure 160 mm[Hg] DO Chrismyke Pierre Work Phone: [facility] 09-29-2023 01:41-0500 Respiratory rate 18 /min DO Chrismyke Pierre Work Phone: [facility] 09-29-2023 01:41-0500 SaO2% (BldA) [Mass fraction] 99 % DO Chris Ignacio Work Phone: [facility] 09-29-2023 01:13-0500 Heart rate 79 /min DO Chris Ignacio Work Phone: [facility] 09-29-2023 01:09-0500 Body height 187.96 cm DO Chris Pierre Work Phone: [facility] 09-29-2023 01:09-0500 Body weight 105.7 kg DO Chris Pierre Work Phone: [facility] 09-29-2023 00:35-0500 Body temperature 97.8 [degF] DO Chris Pierre Work Phone: [facility] 09-18-2023 14:52-0500 Body height 182.9 cm Spencer Zarate GREEN HIDE INSPECTOR Work Phone: [facility] 09-18-2023 14:52-0500 Body mass index (BMI) [Ratio] 30.24 kg/m2 Spencer Zarate GREEN HIDE INSPECTOR Work Phone: [facility] 09-18-2023 14:52-0500 Body weight 101.15 kg Spencer Zarate GREEN HIDE INSPECTOR Work Phone: [facility] 09-18-2023 14:52-0500 Diastolic blood pressure 70 mm[Hg] Spencer Zarate GREEN HIDE INSPECTOR Work Phone: [facility] 09-18-2023 14:52-0500 Heart rate 92 /min Spencer Zarate GREEN HIDE INSPECTOR Work Phone: [facility] 09-18-2023 14:52-0500 SaO2% (BldA) [Mass fraction] 96 % Spencer Zarate GREEN HIDE INSPECTOR Work Phone: [facility] 09-18-2023 14:52-0500 Systolic blood pressure 94 mm[Hg] Spencer Zarate GREEN HIDE INSPECTOR Work Phone: [facility] 06-10-2023 10:37-0400 Blood Pressure Location Jesusita SMALL [facility] 06-10-2023 10:37-0400 Diastolic blood pressure 73 mm[Hg] Jesusita SMALL [facility] 06-10-2023 10:37-0400 Heart rate 71 /min Jesusita SMALL [facility] 06-10-2023 10:37-0400 Respiratory rate 16 /min Jesusita SMALL [facility] 06-10-2023 10:37-0400 Systolic blood pressure 138 mm[Hg] Jesusita SMALL [facility] 05-06-2023 13:47-0400 Body height 187.96 cm Chris Pierre Work Phone: [facility] DO Work Phone: 05-06-2023 13:47-0400 Body mass index (BMI) [Ratio] 29.53 kg/m2 Chris Pierer Work Phone: [facility] DO Work Phone: 05-06-2023 13:47-0400 Body surface area Derived from formula 2.31 m2 Chris Pierre Work Phone: [facility] DO Work Phone: 05-06-2023 13:47-0400 Body weight 104.33 kg Chris Pierre Work Phone: [facility] DO Work Phone: 05-06-2023 13:47-0400 Diastolic blood pressure 62 mm[Hg] Chris Pierre Work Phone: [facility] DO Work Phone: 05-06-2023 13:47-0400 Heart rate 76 /min Chris Pierre Work Phone: [facility] DO Work Phone: 05-06-2023 13:47-0400 Systolic blood pressure 138 mm[Hg] Chris Pierre Work Phone: [facility] DO Work Phone: 03-21-2023 11:27-0400 Body height 187.96 cm Chris Pierre Work Phone: [facility] DO Work Phone: 03-21-2023 11:27-0400 Body mass index (BMI) [Ratio] 28.89 kg/m2 Chris Pierre Work Phone: [facility] DO Work Phone: 03-21-2023 11:27-0400 Body surface area Derived from formula 2.28 m2 Chris Pierre Work Phone: [facility] DO Work Phone: 03-21-2023 11:27-0400 Body weight 102.06 kg Chris Pierre Work Phone: [facility] DO Work Phone: 03-21-2023 11:27-0400 Diastolic blood pressure 86 mm[Hg] Chris Pierre Work Phone: [facility] DO Work Phone: 03-21-2023 11:27-0400 Heart rate 86 /min Chris Pierre Work Phone: [facility] DO Work Phone: 03-21-2023 11:27-0400 Systolic blood pressure 128 mm[Hg] Chris Pierre Work Phone: [facility] DO Work Phone: 02-21-2023 13:32-0400 Body height 187.96 cm Chris Pierre Work Phone: [facility] DO Work Phone: 02-21-2023 13:32-0400 Body mass index (BMI) [Ratio] 29.4 kg/m2 Chris Pierre Work Phone: [facility] DO Work Phone: 02-21-2023 13:32-0400 Body surface area Derived from formula 2.3 m2 Chris Pierre Work Phone: [facility] DO Work Phone: 02-21-2023 13:32-0400 Body weight 103.87 kg Chris Pierre Work Phone: [facility] DO Work Phone: 02-21-2023 13:32-0400 Diastolic blood pressure 68 mm[Hg] Chris Pierre Work Phone: [facility] DO Work Phone: 02-21-2023 13:32-0400 Heart rate 65 /min Chris Pierre Work Phone: [facility] DO Work Phone: 02-21-2023 13:32-0400 Systolic blood pressure 110 mm[Hg] Chris Pierre Work Phone: [facility] DO Work Phone: 02-04-2023 10:51-0400 Body height 187.96 cm Chris Pierre Work Phone: [facility] DO Work Phone: 02-04-2023 10:51-0400 Body mass index (BMI) [Ratio] 29.79 kg/m2 Chris Pierre Work Phone: [facility] DO Work Phone: 02-04-2023 10:51-0400 Body surface area Derived from formula 2.31 m2 Chris Mccauleyman Work Phone: [facility] DO Work Phone: 02-04-2023 10:51-0400 Body weight 105.24 kg Chris Mccauleyman Work Phone: [facility] DO Work Phone: 02-04-2023 10:51-0400 Diastolic blood pressure 62 mm[Hg] Chris Mccauleyman Work Phone: [facility] DO Work Phone: 02-04-2023 10:51-0400 Heart rate 66 /min Chris Mccauleyman Work Phone: [facility] DO Work Phone: 02-04-2023 10:51-0400 Systolic blood pressure 94 mm[Hg] Chris Mccauleyman Work Phone: [facility] DO Work Phone: 01-28-2023 11:42-0400 Body height 187.96 cm Chris Mccauleyman Work Phone: [facility] DO Work Phone: 01-28-2023 11:42-0400 Body mass index (BMI) [Ratio] 29.92 kg/m2 Chris Mccauleyman Work Phone: [facility] DO Work Phone: 01-28-2023 11:42-0400 Body surface area Derived from formula 2.32 m2 Chris Pierre Work Phone: [facility] DO Work Phone: 01-28-2023 11:42-0400 Body weight 105.69 kg Chris Pierre Work Phone: [facility] DO Work Phone: 01-28-2023 11:42-0400 Diastolic blood pressure 84 mm[Hg] Chris Pierre Work Phone: [facility] DO Work Phone: 01-28-2023 11:42-0400 Heart rate 64 /min Chris Pierre Work Phone: [facility] DO Work Phone: 01-28-2023 11:42-0400 Systolic blood pressure 120 mm[Hg] Chris Pierre Work Phone: [facility] DO Work Phone: 12-24-2022 11:33-0400 Body height 187.96 cm Chris Pierre Work Phone: [facility] DO Work Phone: 12-24-2022 11:33-0400 Body mass index (BMI) [Ratio] 29.79 kg/m2 Chris Pierre Work Phone: [facility] DO Work Phone: 12-24-2022 11:33-0400 Body surface area Derived from formula 2.31 m2 Chris Pierre Work Phone: [facility] DO Work Phone: 12-24-2022 11:33-0400 Body weight 105.24 kg Chris Pierre Work Phone: [facility] DO Work Phone: 12-24-2022 11:33-0400 Diastolic blood pressure 88 mm[Hg] Chris Pierre Work Phone: [facility] DO Work Phone: 12-24-2022 11:33-0400 Heart rate 68 /min Chris Mccauleyman Work Phone: [facility] DO Work Phone: 12-24-2022 11:33-0400 Systolic blood pressure 136 mm[Hg] Chris Pierre Work Phone: [facility] DO Work Phone: 09-17-2022 13:22-0500 Body height 187.96 cm Chris Mccauleyman Work Phone: [facility] DO Work Phone: 09-17-2022 13:22-0500 Body mass index (BMI) [Ratio] 29.79 kg/m2 Chris Pierre Work Phone: [facility] DO Work Phone: 09-17-2022 13:22-0500 Body surface area Derived from formula 2.31 m2 Chris Mccauleyman Work Phone: [facility] DO Work Phone: 09-17-2022 13:22-0500 Body weight 105.24 kg Chris Mccauleyman Work Phone: [facility] DO Work Phone: 09-17-2022 13:22-0500 Diastolic blood pressure 88 mm[Hg] Chris Mccauleyman Work Phone: [facility] DO Work Phone: 09-17-2022 13:22-0500 Heart rate 60 /min Chris Pierre Work Phone: [facility] DO Work Phone: 09-17-2022 13:22-0500 Systolic blood pressure 138 mm[Hg] Chris Pierre Work Phone: [facility] DO Work Phone: 04-23-2022 10:19-0400 Blood Pressure Location Jesusita SMALL [facility] 04-23-2022 10:19-0400 Diastolic blood pressure 86 mm[Hg] Jesusita SMALL [facility] 04-23-2022 10:19-0400 Heart rate 71 /min Jesusita SMALL [facility] 04-23-2022 10:19-0400 Respiratory rate 16 /min Jesusita SMALL [facility] 04-23-2022 10:19-0400 Systolic blood pressure 115 mm[Hg] Jesusita SMALL [facility] 12-22-2021 12:00-0400 73 1 Chris Pierre Work Phone: [facility] Work Phone: Comment on above: [id number] 08-21-2021 10:18-0500 Body height 187.96 cm Chris Pierre Work Phone: [facility] DO Work Phone: 08-21-2021 10:18-0500 Body mass index (BMI) [Ratio] 28.5 kg/m2 Chris Pierre Work Phone: [facility] DO Work Phone: 08-21-2021 10:18-0500 Body surface area Derived from formula 2.27 m2 Chris Pierre Work Phone: [facility] DO Work Phone: 08-21-2021 10:18-0500 Body weight 100.7 kg Chris Pierre Work Phone: [facility] DO Work Phone: 08-21-2021 10:18-0500 Diastolic blood pressure 82 mm[Hg] Chris Pierre Work Phone: [facility] DO Work Phone: 08-21-2021 10:18-0500 Heart rate 65 /min Chris Pierre Work Phone: [facility] DO Work Phone: 08-21-2021 10:18-0500 Systolic blood pressure 110 mm[Hg] Chris Pierre Work Phone: [facility] DO Work Phone: Encounters Encounter Date Encounter Type Care Provider Facility Start: 08-31-2024 ambulatory Jesusita Moreno ty:[facility] Start: 08-28-2024 End: 08-28-2024 Patient encounter procedure Chris Pierre DO Work Phone: [facility] Work Phone: Start: 08-28-2024 End: 08-28-2024 ambulatory Chris Pierre DO Work Phone: [facility] Work Phone: Start: 08-25-2024 End: 08-25-2024 Bamboo flowsheet Chris A Ignacio DO Work Phone: [facility] Start: 08-25-2024 End: 08-25-2024 Bamboo flowsheet Chris Joya Ignacio DO Work Phone: [facility] Start: 08-25-2024 End: 08-25-2024 Office outpatient visit 25 minutes Spencer Zarate GREEN HIDE INSPECTOR Work Phone: [facility] Comment on above: Medicare annual well ness visit, subsequent (Primary Dx); ACP (advance care planning); Type 2 diabetes mellitus with other specified complication, without long-term current use of insulin ([facility]/HCC); Benign prostatic hyperplasia without lower urinary tract symptoms; 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); Primary hypertension (CMS/HCC); Mixed hyperlipidemia (CMS/HCC); Thrombocytopenia ([facility]/HCC); Prostate cancer screening; Need for vaccination with 20-polyvalent pneumococcal conjugate vaccine Start: 08-25-2024 End: 08-25-2024 Patient encounter procedure Spencer Zarate Work Phone: [facility] Work Phone: Start: 08-25-2024 End: 08-25-2024 ambulatory SPENCER ZARATE Not Available Start: 08-18-2024 End: 08-19-2024 External Result Encounter Chris Pierre DO Work Phone: [facility] External Department Unsolicited Start: 08-18-2024 End: 08-19-2024 External Result Encounter Chris Pierre DO Work Phone: [facility] External Department Unsolicited Start: 08-18-2024 End: 08-18-2024 Patient encounter procedure Chris Pierre DO Work Phone: [facility] [place] Work Phone: Start: 08-18-2024 End: 08-18-2024 ambulatory Chris Pierre DO Work Phone: [facility] Work Phone: Start: 07-31-2024 End: 07-31-2024 ambulatory Chris Pierre Facility:[facility] Start: 07-31-2024 End: 07-31-2024 Patient encounter procedure Chris Pierre DO Work Phone: [facility] Work Phone: Start: 07-29-2024 End: 07-29-2024 Bamboo flowsheet Chris Pierre DO Work Phone: [facility] Start: 07-29-2024 End: 07-29-2024 Bamboo flowsheet Chris Pierre DO Work Phone: [facility] Start: 07-29-2024 End: 07-29-2024 Office outpatient visit 25 minutes Chris Pierre DO Work Phone: [facility] Comment on above: Primary hypertension (CMS/HCC) (Primary Dx); Type 2 diabetes mellitus with other specified complication, without long-term current use of insulin (CMS/HCC); Pain of left hip; Greater trochanteric bursitis of left hip; 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) Start: 07-29-2024 End: 07-29-2024 ambulatory CHRIS PIERRE Not Available Start: 07-16-2024 End: 07-16-2024 Patient encounter procedure Chris Pierre DO Work Phone: [facility] [place] Work Phone: Start: 07-16-2024 End: 07-16-2024 ambulatory Chris Pierre Facility:[facility] Start: 06-19-2024 End: 06-19-2024 Patient encounter procedure Chris Pierre DO Work Phone: [facility] [place] Work Phone: Start: 06-19-2024 End: 06-19-2024 ambulatory Chris Pierre DO Work Phone: [facility] Work Phone: Start: 06-17-2024 End: 06-17-2024 Patient encounter procedure DO Chris Pierre Work Phone: [facility] [place] Work Phone: Start: 06-17-2024 End: 06-17-2024 ambulatory DO Chris Pierre Work Phone: [facility] Work Phone: Start: 06-08-2024 ambulatory Jesusita Moreno ty:VADIM Ding Start: 05-12-2024 End: 05-12-2024 Bamboo flowsheet Chris Pierre DO Work Phone: [facility] Start: 05-12-2024 End: 05-12-2024 Bamboo flowsheet Chris Pierre DO Work Phone: [facility] Start: 05-12-2024 End: 05-12-2024 ambulatory SPENCER ZARATE Not Available Start: 05-12-2024 End: 05-12-2024 Office outpatient visit 25 minutes Chris Pierre DO Work Phone: [facility] Comment on above: Primary hypertension (CMS/HCC) (Primary Dx); Type 2 diabetes mellitus with other specified complication, without long-term current use of insulin (CMS/HCC); Benign prostatic hyperplasia without lower urinary tract symptoms; 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); Trochanteric bursitis of left hip; Other secondary osteoarthritis of left hip Start: 05-12-2024 End: 05-12-2024 ambulatory CHRIS PIERRE Not Available Start: 04-14-2024 End: 04-14-2024 ambulatory Jesusita SMALL Facility:[facility] Start: 04-14-2024 End: 04-14-2024 Patient encounter procedure Jesusita SMALL [facility] Start: 04-02-2024 Non-patient / Non-visit DO Delano Pierre Work Phone: [facility] Work Phone: Start: 04-01-2024 End: 04-01-2024 Lab Drop off Jesusita SMALL [facility] Start: 04-01-2024 End: 04-01-2024 ambulatory Jesusita SMALL Facility:[facility] [place] Start: 04-01-2024 End: 04-01-2024 Patient encounter procedure Jesusita SMALL [facility] Start: 04-01-2024 End: 04-01-2024 Patient encounter procedure DO Chris Pierre Work Phone: [facility] [place] Work Phone: Start: 04-01-2024 End: 04-02-2024 ambulatory DO Chris Pierre Work Phone: [facility] Work Phone: Start: 03-26-2024 End: 03-26-2024 Emergency department patient visit [facility] Start: 03-16-2024 End: 03-16-2024 ambulatory [facility] Amb[facility] Start: 03-09-2024 End: 03-09-2024 ambulatory CHRIS PIERRE Not Available Start: 02-20-2024 End: 02-20-2024 Emergency department patient visit DO Chris Pierre Work Phone: [facility] Work Phone: Start: 02-12-2024 End: 02-12-2024 ambulatory CHRIS PIERRE Not Available Start: 02-04-2024 End: 02-04-2024 Patient encounter procedure DO Chris Pierre Work Phone: [facility] [place] Work Phone: Start: 02-04-2024 End: 02-04-2024 ambulatory DO Chris Pierre Work Phone: [facility] Work Phone: Start: 01-15-2024 End: 01-15-2024 ambulatory SPENCER ZARATE Not Available Start: 01-09-2024 End: 01-09-2024 ambulatory CHRIS PIERRE Not Available Start: 12-24-2023 End: 12-24-2023 ambulatory CHRIS PIERRE Not Available Start: 10-29-2023 End: 10-29-2023 ambulatory SPENCER ZARATE Not Available Start: 10-12-2023 End: 10-12-2023 ambulatory LASHONDA LAMA Not Available Start: 09-30-2023 End: 09-30-2023 ambulatory CHRIS Joya IGNACIO Not Available Start: 09-29-2023 End: 09-29-2023 Emergency department patient visit DO Chris Pierre Work Phone: [facility] Work Phone: Start: 09-18-2023 End: 09-18-2023 Office outpatient visit 25 minutes Spencer Zarate GREEN HIDE INSPECTOR Work Phone: [facility] Comment on above: Primary hypertension (CMS/HCC) (Primary Dx); Orthostatic hypotension; Lightheadedness Start: 09-18-2023 End: 09-18-2023 ambulatory CHRIS Joya IGNACIO Not Available Start: 08-13-2023 End: 09-30-2023 Patient encounter procedure Spencer Zarate GREEN HIDE INSPECTOR Work Phone: [facility] Start: 08-02-2023 End: 08-02-2023 ambulatory DO Chris Ignacio Work Phone: [facility] Work Phone: Start: 08-02-2023 End: 08-02-2023 Patient encounter procedure DO Chris Mccauleyman Work Phone: [facility] [place] Work Phone: Start: 07-09-2023 End: 07-09-2023 ambulatory DO Chrismyke Pierre Work Phone: [facility] Work Phone: Start: 07-09-2023 End: 07-09-2023 Patient encounter procedure DO Chris Mccauleyman Work Phone: [facility] [place] Work Phone: Start: 06-10-2023 End: 06-10-2023 ambulatory Jesusita SMALL Facility: [facility] Start: 06-10-2023 End: 06-10-2023 Patient encounter procedure Jesusita Payan STACI [facility] [place] Start: 05-06-2023 Patient encounter procedure Chris Pierre Work Phone: [facility] DO Work Phone: Start: 04-10-[address] Chris Lawrence Facility:[id number] Start: 03-21-2023 Office outpatient vi sit 25 minutes Chris Pierre Work Phone: [facility] DO Work Phone: Start: 03-21-[address] Chris Lawrence Facility: Start: 03-07-2023 Chart Update Chris de oliveira Work Phone: [facility] DO Work Phone: Start: 03-07-2023 End: 03-07-2023 ambulatory DO Chris Pierre Work Phone: [facility] Work Phone: Start: 03-07-2023 End: 03-07-2023 Patient encounter procedure DO Chris Pierre Work Phone: [facility] [place] Work Phone: Start: 02-26-2023 Patient encounter procedure Chris Pierre Work Phone: [facility] DO Work Phone: Start: 02-21-2023 Patient encounter procedure Chris Pierre Work Phone: [facility] DO Work Phone: Start: 02-21-[address] Chris Lawrence Facility: Start: 02-15-2023 End: 02-15-2023 ambulatory DO Chris Pierre Work Phone: [facility] Work Phone: Start: 02-15-2023 End: 02-15-2023 Patient encounter procedure DO Chris Pierre Work Phone: [facility] [place] Work Phone: Start: 02-06-2023 STRESS NATALI, Provider : BROOKE BENSON 01,[id number], Status: Pen, Time: 2:30 PM Chris Pierre Work Phone: [facility] DO Work Phone: Start: 02-06-[address] Chris Lawrence Facility:[id number] Start: 02-04-2023 Office outpatient vi sit 25 minutes Chris Pierre Work Phone: [facility] DO Work Phone: Start: 02-04-[address] Chris Lawrence Facility: Start: 01-28-2023 Office outpatient vi sit 25 minutes Chris Pierre Work Phone: [facility] DO Work Phone: Start: 01-28-2023 End: 01-28-2023 ambulatory DO Chris Pierre Work Phone: [facility] Work Phone: Start: 01-28-2023 End: 01-28-2023 Patient encounter procedure DO Chris Pierre Work Phone: [facility] [place] Work Phone: Start: 01-09-2023 Chart Update Chris de oliveira Work Phone: [facility] DO Work Phone: Start: 01-09-2023 End: 01-09-2023 ambulatory DO Chris Pierre Work Phone: [facility] Work Phone: Start: 01-09-2023 End: 01-09-2023 Patient encounter procedure DO Chris Pierre Work Phone: [facility]Electrodiagnostics Work Phone: Start: 12-31-2022 Telephone encounter Chris Pierre Work Phone: [facility] Work Phone: Start: 12-24-2022 Office outpatient vi sit 25 minutes Chris Pierre Work Phone: [facility] 250 DO Work Phone: Start: 12-24-2022 ambulatory MD SHANTHI LANCASTER [facility] y: Start: 11-22-2022 End: 11-22-2022 Patient encounter procedure DO Chris Pierre Work Phone: [facility] Work Phone: Start: 09-17-2022 Office outpatient vi sit 25 minutes Chris Pierre Work Phone: [facility] 250 DO Work Phone: Start: 09-17-[address] 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 right eye (Primary Dx) Start: 08-02-2022 End: 08-02-2022 ambulatory DO Chris Pierre Work Phone: [facility] Work Phone: Start: 08-02-2022 End: 08-02-2022 Patient encounter procedure DO Chris Pierre Work Phone: [facility] [place] Work Phone: Start: 07-26-2022 Telephone encounter Tamanna mejia MD Work Phone: [facility] Comment on above: Letter Start: 07-20-2022 Telephone encounter Tamanna mejia MD Work Phone: [facility] Comment on above: Future Appointment Start: 07-20-2022 End: 07-20-2022 ambulatory TAMANNA PORRAS Facility:[facility] Start: 07-20-2022 End: 07-20-2022 Patient encounter procedure Tamanna Porras MD Work Phone: [facility] Comment on above: Low tension glaucoma of left eye, indeterminate stage (Primary Dx) Start: 06-18-2022 Telephone encounter Tamanna mejia MD Work Phone: [facility] Comment on above: Letter Start: 06-12-2022 End: 06-12-2022 ambulatory DO Chris Pierre Work Phone: [facility] Work Phone: Start: 06-12-2022 End: 06-12-2022 Patient encounter procedure DO Chris Pierre Work Phone: [facility] Start: 06-01-2022 End: 06-01-2022 ambulatory LEE KNOWLES Facility:[facility] Start: 06-01-2022 End: 06-01-2022 Patient encounter procedure Tamanna Porras MD Work Phone: [facility] Comment on above: Low tension glaucoma of left eye, indeterminate stage (Primary Dx); Glaucoma suspect of right eye Start: 04-24-2022 End: 04-24-2022 Patient encounter procedure DO Chris Pierre Work Phone: [facility] Start: 04-23-2022 End: 04-23-2022 Patient encounter procedure Jesusita SMALL [facility] Start: 03-27-[address] Chris Lawrence Facility: Start: 02-01-2022 Chart Update Chris de oliveira Work Phone: [facility] [place] 600 DO Work Phone: Start: 01-31-2022 End: 01-31-2022 Patient encounter procedure DO Chris Pierre Work Phone: [facility] [place] Start: 12-22-2021 Patient encounter procedure Chris Pierre Work Phone: [facility] Work Phone: Start: 12-15-2021 AUDIT Chris de oliveira Work Phone: [facility] [place] 600 DO Work Phone: Start: 12-01-2021 Patient encounter procedure Chris Pierre Work Phone: [facility] 250 DO Work Phone: Start: 11-30-2021 Rx Renewal Chris de oliveira Work Phone: [facility] 250 DO Work Phone: Start: 08-21-2021 Office outpatient vi sit 25 minutes Chris Pierre Work Phone: [facility] 250 DO Work Phone: Start: 03-16-2021 End: 03-16-[address] JESUSITA SMALL Facility: Start: 03-15-2021 Encounter for other preprocedural examination DR JESUSITA SMALL [facility] Start: 03-15-2021 Encounter for preprocedural cardiovascular examination DR JESUSITA SMALL [facility] Start: 03-15-2021 Encounter for preprocedural laboratory examination DR JESUSITA SMALL [facility] Start: 03-13-[address] JESUSITA SMALL Facil ity:H1 Start: 03-08-2021 End: 03-09-[address] JESUSITA SMALL Facility:[facility] Start: 03-08-2021 End: 03-09-2021 Encounter for preprocedural laboratory examination DR JESUSITA SMALL Facility:[facility] Procedures Date Procedure Procedure Detail Performing Clinician Start: 08-18-2024 Hemoglobin glycosylated a1c Chris Pierre DO Work Phone: Start: 08-18-2024 SCAN AND CBC Chris Pierre DO Work Phone: Start: 05-12-2024 Hemoglobin glycosylated a1c Spencer Zarate GREEN HIDE INSPECTOR Work Phone: Start: 04-01-2024 Diagnostic radiograp hy of abdomen DO Chris Pierre Work Phone: Start: 02-20-2024 CT of abdomen and pe lvis without contrast DO Chris Pierre Work Phone: Start: 02-15-2023 CT of thorax with contrast DO Chris Pierre Work Phone: Start: 01-28-2023 Respiratory Panel (PCR) DO Chris Pierre Work Phone: Start: 01-28-2023 Plain chest X-ray DO Elio Pierre Work Phone: Start: 08-31-2022 Trabeculoplasty by l aser surgery Tamanna Porras MD Work Phone: Start: 07-20-2022 Trabeculoplasty by l aser surgery Tamanna Porras MD Work Phone: Start: 06-12-2022 Plain chest X-ray DO Elio Pierre Work Phone: Start: 06-01-2022 Computerized ophthal laina imaging optic nerve Tamanna Porras MD Work Phone: Start: 04-24-2022 Diagnostic radiograp hy of abdomen DO hCris Pierre Work Phone: Start: 10-02-2019 Arthroscopy of knee Pat kenyatta SMALL Comment on above: right Start: 03-03-2010 Lithotripsy Jesusita BLANTON Start: 04-18-2006 Cystourethroscopy wi th ureteroscopy and pyeloscopy Jesusita SMALL Start: 04-09-2001 Transurethral prostatectomy Jesusita SMALL Bone spur of left foot David SMALL Colonoscopy Jesusita SMALL Laser photocoagulati on to retina Chris Pierre Work Phone: Lithotripsy Chris lugo Work Phone: Operative procedure on foot Chris Pierre Work Phone: Operative procedure on knee Chris Pierre Work Phone: Renal lithotripsy Chris Pierre Work Phone: Repair of meniscus Chris Pierre Work Phone: Tonsillectomy Chris de oliveira Work Phone: Tonsillectomy Jesusita SMALL Total colonoscopy Chris Pierre Work Phone: Comment on above: [id number]; Vasectomy Jesusita SMALL Plan of Treatment Date Care Activity Detail Author Start: 02-23-2025 End: 02-23-2025 Patient encounter procedure 02/23/2025 10:00 AM EDT Office Visit [facility] [address] [place] [address] Chris Pierre, DO [address] [place] [address] [facility] Start: 02-22-2025 End: 08-25-2025 Comprehensive metabolic 2000 panel - Serum or Plasma Comprehensive metabolic panel Lab Routine Type 2 diabetes mellitus with other specified complication, without long-term current use of insulin (CMS/HCC) Primary hypertension (CMS/HCC) Expected: 02/22/2025, Expires: 08/25/2025 [facility] Comment on above: Expected: 02/22/2025 , Expires: 08/25/2025 Start: 02-22-2025 End: 08-25-2025 Hemoglobin a1c with eag Hemoglobin a1c with eag Lab Routine Type 2 diabetes mellitus with other specified complication, without long-term current use of insulin (CMS/HCC) Expected: 02/22/2025, Expires: 08/25/2025 [facility] Comment on above: Expected: 02/22/2025 , Expires: 08/25/2025 Start: 02-22-2025 End: 08-25-2025 HEMOGRAM CBC WITHOUT DIFF [place] HEMOGRAM CBC WITHOUT DIFF [place] Lab Routine Thrombocytopenia (CMS/HCC) Expected: 02/22/2025 (Approximate), Expires: 08/25/2025 [facility] Work Phone: Comment on above: Expected: 02/22/2025 (Approximate), Expires: 08/25/2025 Start: 02-22-2025 End: 08-25-2025 Lipid 1996 panel - Serum or Plasma Lipid panel Lab Routine Mixed hyperlipidemia (CMS/HCC) Expected: 02/22/2025, Expires: 08/25/2025 [facility] Comment on above: Expected: 02/22/2025 , Expires: 08/25/2025 Start: 02-22-2025 End: 08-25-2025 Microalbumin/Creatinine panel in random Urine Microalbumin / creatinine urine ratio Lab Routine Type 2 diabetes mellitus with other specified complication, without long-term current use of insulin (CMS/HCC) Primary hypertension (CMS/HCC) Expected: 02/22/2025, Expires: 08/25/2025 [facility] Comment on above: Expected: 02/22/2025 , Expires: 08/25/2025 Start: 02-22-2025 End: 08-25-2025 Prostate specific Ag [Mass/volume] in Serum or Plasma PSA Lab Routine Prostate cancer screening Expected: 02/22/2025, Expires: 08/25/2025 [facility] Comment on above: Expected: 02/22/2025 , Expires: 08/25/2025 Start: 02-03-2025 Urine screening for protein Diabetes: Urine Protein Screening [facility] Start: 11-16-2024 Hemoglobin A1c measurement Diabetes: Hemoglobin A1C [facility] Start: 08-25-2024 End: 08-25-2024 Patient encounter procedure [facility] Comment on above: Medicare annual well ness visit, subsequent (Primary Dx); ACP (advance care planning); Type 2 diabetes mellitus with other specified complication ([facility]) Start: 08-19-2024 End: 08-19-2024 Patient encounter procedure 08/19/2024 10:30 AM EST Office Visit [facility] [address] [place] [phone] Chris Pierre, [address] [place] [address] [facility] Start: 08-18-2024 [facility] Start: 08-18-2024 End: 08-18-2024 Patient encounter procedure 08/18/2024 10:15 AM EST Office Visit [facility] [address] [place] [phone] Chris Pierre, [address] [place] [address] [facility] Start: 08-14-2024 Medicare Annual Wellness (AWV) Medicare Annual Wellness (AWV) [facility] Start: 08-12-2024 Hemoglobin A1c measurement Diabetes: Hemoglobin A1C [facility] Start: 07-31-2024 Patient referral [facility] Work Phone: Start: 07-29-2024 End: 07-29-2024 Patient encounter procedure 07/29/2024 9:45 AM EST Office Visit [facility] [address] [place] [phone] Chris Pierre, [address] [place] [address] Arrived [facility] Comment on above: Arrived Start: 06-19-2024 [facility] Start: 05-12-2024 End: 05-12-2024 Professional / ancillary services management 05/12/2024 9:45 AM EDT Ancillary Procedure [facility] [address] [place] [id number] Arrived [facility] Comment on above: Arrived Start: 05-12-2024 End: 05-12-2024 Patient encounter procedure 05/12/2024 8:45 AM EDT Office Visit [facility] [address] [place] [phone] Chris Pierre, DO [address] [place] [address] Arrived [facility] Comment on above: Arrived Start: 05-06-2024 Hemoglobin A1c measurement Diabetes: Hemoglobin A1C [facility] Start: 02-12-2024 End: 02-12-2024 Patient encounter procedure 02/12/2024 10:30 AM EDT Office Visit [facility] [address] [place] [phone] Chris Pierre, DO [address] [place] [address] [facility] Start: 01-29-2024 Urine screening for protein Diabetes: Urine Protein Screening [facility] Start: 11-01-2023 Hemoglobin A1c measurement Diabetes: Hemoglobin A1C [facility] Start: 09-29-2023 Plain chest X-ray XR chest 2V* [facility] Start: 09-29-2023 XR Chest 2 Views [facility] Start: 08-19-2023 FUV, Provider: Shanthi [place], Status: Pen, Time: 1:00 PM FUV, Provider: Shanthi [place], Status: Pen, Time: 1:00 PM [facility] 250 DO Work Phone: Start: 07-09-2023 [facility] Start: 06-17-2023 FUV, Provider: Shanthi Lancaster, Status: Pen, Time: 1:45 PM FUV, Provider: Shanthi [place], Status: Pen, Time: 1:45 PM [facility] 250 DO Work Phone: Start: 05-06-2023 FUV, Provider: Shanthi Lancaster, Status: Pen, Time: 1:15 PM FUV, Provider: Shanthi [place], Status: Pen, Time: 1:15 PM -[facility] 250 DO Work Phone: Start: 04-10-2023 STRESS NUC, Provider : [place] [facility]UCLEAR 01,[id number], Status: Pen, Time: 12:30 PM STRESS NUC, Provider: [place] [facility]UC[facility] 01,[id number], Status: Pen, Time: 12:30 PM -[facility] 250 DO Work Phone: Start: 03-21-2023 FUV, Provider: Shanthi Lancaster, Status: Pen, Time: 11:30 AM FUV, Provider: Shanthi Lancaster, Status: Pen, Time: 11:30 AM [facility] Work Phone: Start: 02-21-2023 FUV, Provider: Shanthi Lancaster, Status: Pen, Time: 1:30 PM FUV, Provider: Shanthi Lancaster, Status: Pen, Time: 1:30 PM -[facility] 250 DO Work Phone: Start: 02-04-2023 FUV, Provider: Shanthi Lancaster, Status: Pen, Time: 11:00 AM FUV, Provider: Shanthi Lancaster, Status: Pen, Time: 11:00 AM -[facility] 250 DO Work Phone: Start: 01-28-2023 FUV, Provider: Shanthi [place], Status: Pen, Time: 11:45 AM FUV, Provider: Shanthi [place], Status: Pen, Time: 11:45 AM [facility] 250 DO Work Phone: Start: 01-28-2023 [facility] Start: 08-12-2022 ADVANCE DIRECTIVE DISCUSSION ADVANCE DIRECTIVE DISCUSSION [facility] Start: 08-12-2022 DEPRESSION ASSESSMENT DEPRESSION ASS ESSMENT [facility] Start: 04-12-2022 Influenza vaccination INFLUENZA (#1) [facility] Start: 02-19-2022 FUV, Provider: Eduardo [place], Status: Pen, Time: 10:45 AM FUV, Provider: Eduardo [place], Status: Pen, Time: 10:45 AM [facility] 250 DO Work Phone: Start: 12-22-2021 STRESS NUC, Provider : [place] [facility] 01,[id number], Status: Pen, Time: 12:00 PM STRESS NUC, Provider: [place] [facility] 01,[id number], Status: Pen, Time: 12:00 PM [facility] [place] 600 DO Work Phone: Start: 08-12-2021 ADVANCE DIRECTIVE DISCUSSION ADVANCE DIRECTIVE DISCUSSION [facility] Start: 08-12-2021 DEPRESSION ASSESSMENT [facility] Start: 04-19-2016 Pneumococcal Vaccine : 65+ Years (2 of 2 - PCV) Pneumococcal Vaccine: 65+ Years (2 of 2 - PCV) [facility] Start: 2011 PNEUMOCOCCAL: 65+ (1 - PCV) PNEUMOCOCCAL: 65+ (1 - PCV) [facility] Start: 1996 SHINGRIX VACCINE (1 of 2) SHINGRIX VACCINE (1 of 2) [facility] Start: 1991 DIABETES SCREEN DIABETES SCREEN [facility] Start: 1965 Urine microalbumin profile DTAP,TDAP,TD (1 - Tdap) [facility] Start: 1964 ANNUAL PCP TEAM SALES REPRESENTATIVE MALT LIQUORS BARTOLO DISEASE VISIT ANNUAL PCP TEAM CHRONIC DISEASE VISIT [facility] Start: 1964 BP CONTROLLED (<130/80) BP CONTROLLE D (<130/80) [facility] Start: 1964 Hepatitis B surface antibody level LDL CHOLESTEROL [facility] Start: 1964 HEPATITIS C SCREENING HEPATITIS C SC REENING [facility] Start: 1964 SPIROMETRY SPIROMETRY [facility] Start: 1956 Glaucoma screening Diabetes: R etinopathy Screening [facility] Start: 1952 Pneumococcal Vaccine : 65+ Years (1 - PCV) Pneumococcal Vaccine: 65+ Years (1 - PCV) [facility] Start: 1952 PNEUMOCOCCAL: 65+ (1 - PCV) PNEUMOCOCCAL: 65+ (1 - PCV) [facility] Start: 1946 Medicare Annual Wellness (AWV) Medicare Annual Wellness (AWV) [facility] Calcium [Mass/time] in 24 hour Urine [facility] Calcium [Mass/volume ] in 24 hour Urine [facility] Comprehensive metabo lic 2000 panel - Serum or Plasma Comprehensive metabolic panel Lab Routine 08/18/2024 10:42 AM EST [facility] Work Phone: ECG 12 lead ECG 12 lead ECG Routine Primary hypertension (CMS/HCC) 05/12/2024 9:41 AM EDT [facility] Work Phone: Lipid 1996 panel - Serum or Plasma Lipid panel Lab Routine 08/18/2024 10:42 AM EST [facility] Magnesium [Mass/time ] in 24 hour Urine [facility] Magnesium [Mass/volu me] in Urine [facility] Oxalate [Mass/time] in 24 hour Urine [facility] Patient Education [facility] Work Phone: Patient referral [facility] Work Phone: Phosphate [Mass/time ] in 24 hour Urine [facility] Phosphate [Mass/volu me] in Urine [facility] Urate [Mass/time] in 24 hour Urine [facility] Urate [Mass/volume] in Urine [facility] Urinalysis complete panel - Urine Urinalysis with microscopic Lab Routine 08/18/2024 10:42 AM EST [facility] Work Phone: [facility] Immunizations Immunization Date Immunization Notes Care Provider Fa jeremy 08-25-2024 Pneumococcal Conjuga te PCV 20 Spencer Zarate GREEN HIDE INSPECTOR Work Phone: [facility] 05-05-2024 Seasonal trivalent influenza vaccine, adjuvanted, preservative free Chris Pierre DO Work Phone: [facility] 06-07-2023 COVID-19 (PFIZER) 12Y and older Chris Pierre DO Work Phone: [facility] 06-07-2023 Pfizer Purple Cap SARS-CoV-2 Vaccination Spencer Zarate GREEN HIDE INSPECTOR Work Phone: [facility] 05-01-2023 Fluad Quadrivalent 0 .5 ML Intramuscular Prefilled Syringe Chris Pierre [facility] Work Phone: 05-01-2023 influenza virus vacc ine, unspecified formulation Jesusita SMALL [facility] 04-29-2023 influenza, seasonal, injectable Chris Pierre Work Phone[facility] Work Phone: Comment on above: Series: 05-11-2022 influenza virus vacc ine, unspecified formulation Jesusita SMALL [facility] 05-11-2022 influenza, high dose seasonal, preservative-free Chris Pierre [facility] Work Phone: 05-11-2022 Pfizer COVID-19 Vac Bivalent 30 MCG/0.3ML Intramuscular Suspension Chris Pierre Work Phone: [facility] 12-23-2021 Comirnaty 30 MCG/0.3 ML Intramuscular Suspension Chris Pierre Work Phone: [facility] 12-23-2021 SARS-CoV-2 mRNA (kghwerzvbfy-pljc-gtdeis e) vaccine Jesusita SMALL [facility] 05-19-2021 Pfizer-BioNTech COVI D-19 Vacc 30 MCG/0.3ML Intramuscular Suspension Chris Pierre Work Phone: [facility] Comment on above: Result Comment: 2022: [id number] 04-27-2021 Fluad Quadrivalent 0 .5 ML Intramuscular Prefilled Syringe Chris Pierre Work Phone: [facility] 250 DO Work Phone: 04-27-2021 influenza virus vacc ine, unspecified formulation Jesusita SMALL [facility] 10-07-2020 Pfizer-BioNTech COVI D-19 Vacc 30 MCG/0.3ML Intramuscular Suspension Chris Pierre Work Phone: [facility] Comment on above: Result Comment: 2022: [id number] 10-02-2020 SARS-CoV-2 (COVID-19 ) mRNA BNT-162b2 vax Jesusita SMALL [facility] 09-17-2020 Pfizer-BioNTech COVI D-19 Vacc 30 MCG/0.3ML Intramuscular Suspension Chris Pierre Work Phone: [facility] Comment on above: Result Comment: 2022: [id number] 06-10-2020 influenza virus vacc ine, unspecified formulation Chris Pierre Work Phone: [facility] 04-27-2020 influenza virus vacc ine, unspecified formulation Jesusita SMALL [facility] 04-27-2020 influenza, injectabl e, quadrivalent, preservative free Chris Pierre Work Phone: [place] [address] DO Work Phone: 02-24-2020 Shingrix intramuscul ar injection Jesusita SMALL [facility] 12-23-2019 zoster vaccine recombinant Chris Joya MccauleyIgnacio Work Phone: [facility] 10-14-2019 zoster vaccine recombinant Chris Hinson Ignacio Work Phone: [facility] 06-12-2019 influenza virus vacc ine, unspecified formulation Chris Mccauleyman Work Phone: [place] [address] DO Work Phone: 04-23-2019 influenza virus vacc ine, unspecified formulation Jesusitakenyatta SMALL [facility] 04-23-2019 Seasonal trivalent influenza vaccine, adjuvanted, preservative free Chris Pierre Work Phone: [place] [address] DO Work Phone: 06-12-2018 influenza virus vacc ine, unspecified formulation Chris Mccauleyman Work Phone: [place] [address] DO Work Phone: 05-15-2018 influenza virus vacc ine, unspecified formulation Jesusitakenyatta SMALL [facility] 05-15-2018 influenza, high dose seasonal, preservative-free Chris Pierre Work Phone: [place] [address] DO Work Phone: 06-12-2017 influenza virus vacc ine, unspecified formulation Chris Pierre Work Phone: [place] [address] DO Work Phone: 05-07-2017 influenza virus vacc ine, unspecified formulation Jesusita SMALL [facility] 05-07-2017 influenza, injectabl e, quadrivalent, preservative free Chris Mccauleyman Work Phone: [place] [address] DO Work Phone: 05-08-2016 influenza virus vacc ine, unspecified formulation Jesusita SMALL [facility] 05-03-2016 influenza virus vacc ine, unspecified formulation Chris Mccauleyman Work Phone: [place] [address] DO Work Phone: 05-23-2015 influenza virus vacc ine, unspecified formulation Jesusita SMALL [facility] 05-23-2015 influenza, high dose seasonal, preservative-free Chris Mccauleyman Work Phone: [place] [address] DO Work Phone: 05-12-2015 influenza virus vacc ine, unspecified formulation Chris Mccauleyman Work Phone: [place] [address] DO Work Phone: 04-19-2015 pneumococcal polysaccharide vaccine, 23 valent Chris Pierre Work Phone: [place] [address] DO Work Phone: 04-12-2014 influenza virus vacc ine, whole virus Chris Pierre Work Phone: [facility] 250 DO Work Phone: 04-12-2014 pneumococcal polysaccharide vaccine, 23 valent Chris Pierre Work Phone: [facility] 250 DO Work Phone: 05-12-2013 influenza virus vacc ine, whole virus Chris Pierre Work Phone: [facility] 250 DO Work Phone: 07-15-2009 zoster vaccine, live Chris Pierre Work Phone: [facility] 06-27-2009 novel influenza-H1N1 -09, preservative-free, injectable Chris Pierre Work Phone: [place] [address] DO Work Phone: 04-12-2007 pneumococcal polysaccharide vaccine, 23 valent Chris Pierre Work Phone: [place] [address] DO Work Phone: influenza virus vacc ine, unspecified formulation Chris Pierre Work Phone: [place] [address] DO Work Phone: Comment on above: May 2012 Payers Date Payer Category Payer Self-pay [id number] 2022 Medicare (Managed Care) [facility] MEDIC[facility] [id number] 2022 Private Health Insurance [id number] 2021 Medicare [id number] 2021 Private Health Insurance [id number] 1959 Medicare [id number] 1946 Unknown [id number] 2.16.840.1.356705.3.579.2. 593 1946 Unknown [id number] 2.16.840.1.690150.3.579.2. 593 1946 Unknown [id number] 2.16.840.1.781739.3.579.2. 593 1946 Unknown [id number] 2.16.840.1.817820.3.579.2. 356 1946 Unknown [id number] 2.16.840.1.958723.3.579.2. 356 1946 Unknown [id number] 2.16.840.1.780701.3.579.2. 356 1946 Unknown [id number] 2.16.840.1.992857.3.579.2. 356 1946 Unknown [id number] 2.16.840.1.008454.3.579.2. 356 1946 Unknown [id number] 2.16.840.1.121678.3.579.2. 356 1946 Unknown [id number] 2.16.840.1.325780.3.579.2. 356 1946 Unknown [id number] 2.16.840.1.041122.3.579.2. 1068 1946 Unknown [id number] 2.16.840.1.325279.3.579.2. 1068 1946 Unknown [id number] 2.16.840.1.650135.3.579.2. 727 1946 Unknown [id number] 2.16.840.1.709252.3.579.2. 727 1946 Unknown [id number] 2.16.840.1.941394.3.579.2. 727 1946 Unknown [id number] 2.16.840.1.661515.3.579.2. 727 1946 Unknown [id number] 2.16.840.1.753735.3.579.2. 727 1946 Unknown [id number] 2.16840.1.475782.3.579.2. 727 1946 Unknown [id number] 2.16840.1.256453.3.579.2. 727 1946 Unknown [id number] 2.840.1.724566.3.579.2. 1244 1946 Unknown [id number] 2.840.1.918115.3.579.2. 1259 1945 Unknown [id number] 2.840.1.025873.3.579.2. 1259 1945 Unknown [id number] 2.840.1.159361.3.579.2. 1259 1946 Unknown [id number] 2.840.1.938185.3.579.2. 1259 1946 Unknown [id number] 2.840.1.220009.3.579.2. 1259 1946 Unknown [id number] 2.16840.1.899308.3.579.2. 1259 1946 Unknown [id number] 2.16840.1.127819.3.579.2. 1259 1946 Unknown [id number] 2.16840.1.541453.3.579.2. 1259 1946 Unknown [id number] 2.16840.1.439512.3.579.2. 1259 1946 Unknown [id number] 2.16.840.1.072790.3.579.2. 1259 1946 Unknown [id number] 2.840.1.285491.3.579.2. 1258 1946 Unknown [id number] 2.840.1.504172.3.579.2. 1258 1946 Unknown [id number] 2.840.1.458481.3.579.2. 1258 1946 Unknown [id number] 2.840.1.698661.3.579.2. 1258 1946 Unknown [id number] 2.0.1.819229.3.579.2. 1258 1946 Unknown [id number] 2.840.1.152654.3.579.2. 727 1945 Unknown [id number] 2.0.1.458830.3.579.2. 727 Medicare Medicare [id number] Medicare Medicare [id number] Unknown Unknown [place] BC/BS [id number] Unknown [id number] 2.840.1.132804.3.579.2. 531 Unknown [id number] 2.840.1.723003.3.579.2. 531 Unknown [id number] 2.840.1.857009.3.579.2. 531 Unknown [id number] 2.840.1.518749.3.579.2. 531 Unknown [id number] 2.16840.1.593969.3.579.2. 531 Unknown [id number] 2.840.1.107536.3.579.2. 531 Unknown [id number] 2.16.840.1.145525.3.579.2. 531 Unknown [id number] 2.16.840.1.097622.3.579.2. 531 Unknown [id number] 2.16.840.1.857162.3.579.2. 531 Unknown [id number] 2.16.840.1.433263.3.579.2. 531 Social History Date Type Detail Facility Start: 08-14-2023 End: 08-18-2024 Daily alcohol use Daily alcohol use -[facility] [address] DO Work Phone: Comment on above: 2 drinks daily; quit 1971; Start: 06-29-2019 End: 06-10-2024 Tobacco smoking status Never smoked tobacco (finding) [facility] [employer] Tobacco smoking status Never [facility] [employer] Start: 09-18-2023 End: 08-18-2024 Sex Assigned At Male [facility] [employer] Start: 09-23-2017 End: 08-28-2024 Tobacco smoking status ORIS Ex-smoker (finding) [facility] Start: 1945 Sex Assigned At Male F [facility] Start: 06-01-2022 End: 02-10-2024 Tobacco use and exposure Smokeless tobacco non-user [facility] Start: 06-01-2022 End: 08-25-2024 Alcohol intake Current drinker of alcohol (finding) [facility] Start: 1945 Sex Assigned At Not on file C [facility] Start: 08-12-1954 End: 08-12-1969 History of tobacco use Current smoker [facility] Start: 08-12-1954 End: 08-12-1969 History of tobacco use Cigarette Smoker [facility] How often to you hav e a drink containing alcohol? 4 or more times a week [facility] How many standard drinks containing alcohol do you have on a typical day? 1 or 2 [facility] How often do you hav e 6 or more drinks on 1 occasion? Never [facility] Start: 02-07-2023 Alcohol Comment Caffeine: iced tea occasionally [facility] Start: 06-20-2024 End: 08-29-2024 Sex Male (finding) [facility] NEGATED: Highlighted rowStart: NINF History of tobacco use Passive smoker [facility] Functional Status Date Assessment Result Facility 04-01-2024 Functional Status N/A [facility] 03-26-2024 Functional Status N/A [facility] 06-10-2023 Functional Status N/A [facility] 04-23-2022 Functional Status N/A [facility] Clinical Notes 07-12-2012 to 08-25-2024 Spencer Zarate, GREEN HIDE INSPECTOR - 08/25/2024 11:15 AM EST Note Date & Type Note Facility 08-25-2024 History of Presen t illness Narrative Images from the original note were not included. Jessenia Pyle is a 79 y.o. male presents with chief complaint of 6 month f/u and medicare wellness visit (Pt is here for 6 month visit and Medicare Wellness exam.) HPI: HPI History of Present Illness The patient is a 79-year-old male who presents today for a 6-month office visit and Medicare wellness exam. He has been diagnosed with dementia and requires medication management for this condition. He reports no recent falls or feelings of depression. He is capable of rising from a chair without the use of armrests. He is unable to tell time but can recall three words. He has a living will and healthcare power of deputy prosecuting attorney in place. He has received both shingles vaccines and the Prevnar 23 vaccine. He believes he has also received the Prevnar 13 vaccine, but this is not documented in his medical record. He has received the RSV vaccine and is up to date on his influenza vaccine. He has a scheduled appointment with Dr. Small, a urologist, on Saturday. He has a follow-up eye appointment tomorrow with Dr. Walker. He has a cardiac catheterization procedure scheduled for the upcoming Saturday at 10:[address] James. He reports no cough, shortness of breath, or chest pain, but does experience exertional dyspnea. He reports no leg swelling and has normal bowel and bladder function. He reports no hematochezia. He is currently on Ozempic 2 mg once weekly, which he reports as beneficial. He reports no nausea or constipation. He has noticed a reduction in abdominal girth since starting Ozempic. He is on Jardiance 10 mg for renal protection. He reports experiencing leg pain, which he attributes to the medication, but expresses a desire to continue the medication due to its renal benefits. He has been experiencing pruritus and discharge, although the discharge is no longer yellow in color. Supplemental Information He has a history of blood donation. MEDICATIONS Current: Amlodipine, doxazosin, semaglutide, Jardiance, tamsulosin, potassium. IMMUNIZATIONS He has had both shingles vaccines, Prevnar 23, RSV vaccine, and influenza vaccine. I have reviewed and reconciled the history and medication list with the patient today. CURRENT PCP/CARE TEAM: Patient Care Team: Chris Pierre, DO as PCP - General (Internal Medicine) Over the past 2 weeks, how often have you been bothered by any of the following problems? Little interest or pleasure in doing things: (Patient-Rptd) (P) Not at all Feeling down, depressed, or hopeless: (Patient-Rptd) (P) Not at all Patient Health Questionnaire-2 Score: (Patient-Rptd) (P) 0 Over the past 2 weeks, how often have you been bothered by any of the following problems? Trouble falling or staying asleep, or sleeping too much: Not at all Feeling tired or having little energy: Not at all Poor appetite or overeating: Not at all Feeling bad about yourself - or that you are a failure or have let yourself or your family down: Not at all Trouble concentrating on things, such as reading the newspaper or watching television: Not at all Moving or speaking so slowly that other people could have noticed? Or the opposite - being so fidgety or restless that you have been moving around a lot more than usual.: Not at all Thoughts that you would be better off or hurting yourself in some way: Not at all Patient Health Questionnaire-9 Score: 0 Barboza Fall Risk History of Falling, Immediate or Within 3 Months: (Patient-Rptd) (P) No Secondary Diagnosis: (Patient-Rptd) (P) No Ambulatory Aid: (Patient-Rptd) (P) Walks without aid/bedrest/nurse assist Intravenous Therapy/Heparin Lock: (Patient-Rptd) (P) No Gait/Transferring: (Patient-Rptd) (P) Normal/bedrest/immobile Mental Status: (Patient-Rptd) (P) Oriented to own ability Barboza Fall Risk Score: (Patient-Rptd) (P) 0 Health Risk Assessment Form Do you need help eating, bathing, using the toilet, dressing, or getting around your home?: (Patient-Rptd) (P) No Can you prepare your own meals?: (Patient-Rptd) (P) Yes Can you do your own housework without help?: (Patient-Rptd) (P) Yes Can you shop for groceries or clothes without help?: (Patient-Rptd) (P) Yes Do you exercise for about 20 minutes 3 or more days a week?: (Patient-Rptd) (P) Yes How confident are you that you can control and manage most of your health problems?: (Patient-Rptd) (P) Very confident Can you mange your money, credit cards and accounts, pay bills and taxes?: (Patient-Rptd) (P) Yes Vision Screening: Yes, patient sees regular bus attendant/stock trader Hearing Screening: Yes, no gross abnormalities Cognitive Screening Three Word Registration: Banana, [place], Chair Clock Drawing: Normal Clock - 2 Three Word Recall: All 3 words correct - 3 Total Score (0-5 Points): 5 Pain Assessment Pain Score: (Patient-Rptd) (P) 2 HISTORIES: PAST MEDICAL HISTORY: Past Medical History: Diagnosis Date Bronchitis CAD (coronary artery disease) (CMS/HCC) Herpes simplex without mention of complication History of medical problems ulcers Hyperlipidemia (CMS/HCC) Hypertension (CMS/HCC) Kidney stones Measles Migraines (CMS/HCC) Migraine, unspecified without mention of intractable migraine without mention of status migrainosus Mumps Osteoarthritis Pneumonia Thrombocytopenia (CMS/HCC) Type II diabetes mellitus (CMS/HCC) SURGICAL HISTORY: Past Surgical History: Procedure Laterality Date CARDIAC CATHETERIZATION 07/24/2012 COLONOSCOPY [address] Plasencia LITHOTRIPSY 2020 [place] ARTHROSCOPY KNEE DIAGNOSTIC W/WO SYNOVIAL BX SPX 10/02/2019 Rt Knee Arthroscopy - MTP TONSILLECTOMY VASECTOMY SOCIAL HISTORY: Social History Tobacco Use Smoking status: Former Current packs/day: 0.00 Average packs/day: 0.3 packs/day for 15.0 years (3.8 ttl pk-yrs) Types: Cigarettes Start date: 08/12/1954 Quit date: 08/12/1969 Years since quittin.0 Passive exposure: Never Smokeless tobacco: Never Substance Use Topics Alcohol use: Yes Alcohol/week: 4.0 - 8.0 standard drinks of alcohol Types: 4 - 8 Standard drinks or equivalent per week Comment: Caffeine: iced tea occasionally Drug use: Never Depression: Not at risk (08/18/2024) PHQ-2 PHQ-2 Score: 0 FAMILY HISTORY: Family History Problem Relation Name Age of Onset Heart disease Mother Mom Hypertension Mother Mom Stroke Mother Mom Cancer Mother Mom Hypertension Father Dad Heart disease Father Dad Breast cancer Neg Hx Colon cancer Neg Hx Ovarian cancer Neg Hx MEDICATIONS: Current Outpatient Medications Medication Instructions amLODIPine (NORVASC) 5 mg, Oral, Daily with lunch aspirin 81 mg, Every 24 hours doxazosin (CARDURA) 4 mg, Nightly ezetimibe (ZETIA) 10 mg, Oral, Nightly metoprolol succinate XL (TOPROL-XL) 25 mg, Oral, Daily, Do not crush or chew. Multiple Vitamins-Minerals (CENTRUM ADULTS PO) Take by mouth. potassium citrate CR (Urocit-K-15) 15 mEq ER tablet 15 mEq, 2 times daily with meals rosuvastatin (CRESTOR) 40 mg, Oral, Nightly Semaglutide (2 MG/DOSE) 2 mg, Subcutaneous, Weekly tamsulosin (FLOMAX) 0.4 mg, Oral, Nightly valACYclovir (VALTREX) 500 mg, Oral, 2 times daily ALLERGIES: Allergies Allergen Reactions Atorvastatin Unknown Other Reaction(s): Muscle pain, Myalgia Cerivastatin Other Reaction(s): Muscle pain, Myalgia, Unknown, Unknown Colesevelam Other Reaction(s): Unknown, Unknown, Unknown Ezetimibe Other Reaction(s): Muscle pain, Myalgia, Unknown, Unknown Other Reaction(s): Myalgia Fluvastatin Other Reaction(s): Muscle pain, Myalgia, Unknown, Unknown Lisinopril Cough Losartan Cough Metaxalone Unknown Simvastatin Other Reaction(s): Muscle pain, Myalgia, Unknown, Unknown Immunization History Administered Date(s) Administered Influenza Whole 05/12/2013, 04/12/2014 Influenza, Seasonal, Quadrivalent, Adjuvanted 04/27/2021, 05/01/2023 Influenza, Unspecified 05/23/2015, 05/08/2016, 05/07/2017, 05/15/2018, 04/23/2019, 04/27/2020, 06/10/2020, 04/27/2021, 05/01/2023 Influenza, trivalent, adjuvanted 05/05/2024 Pfizer Cavanaugh Cap SARS-CoV-2 Vaccination 12/23/2021 Pfizer Purple Cap SARS-CoV-2 Vaccination 09/17/2020, 10/07/2020, 05/19/2021, 06/07/2023 Pneumococcal Polysaccharide PPSV23 04/12/2007, 04/12/2014, 04/19/2015 SARS-COV-2 (COVID-19) vaccine, mRNA, spike protein, LNP, PF, bita-sucrose, 30 mcg/0.3 mL 06/07/2023 SARS-COV-2 (COVID-19) vaccine, mRNA, spike protein, LNP, bivalent, preservative free, 30 mcg/0.3 mL dose, bita-sucrose formulation 05/11/2022 Zoster, Recombinant 10/14/2019, 12/23/2019 Zoster, live 07/15/2009 PHYSICAL EXAM: Visit Vitals BP 130/78 Pulse 91 Wt 210 lb SpO2 97% BMI 26.42 kg/m Smoking Status Former BSA 2.24 m BP Readings from Last 3 Encounters: 08/25/24 130/78 07/29/24 144/90 05/12/24 128/82 Wt Readings from Last 3 Encounters: 08/25/24 210 lb 07/29/24 212 lb 05/12/24 211 lb Physical Exam Constitutional: Appearance: Normal appearance. HENT: Head: Normocephalic. Right Ear: Tympanic membrane normal. Left Ear: Tympanic membrane normal. Mouth/Throat: Mouth: Mucous membranes are moist. Pharynx: Oropharynx is clear. Eyes: Extraocular Movements: Extraocular movements intact. Neck: Thyroid: No thyromegaly. Vascular: No carotid bruit. Cardiovascular: Rate and Rhythm: Normal rate and regular rhythm. Heart sounds: Normal heart sounds. No murmur heard. Pulmonary: Effort: No respiratory distress. Breath sounds: Normal breath sounds. Abdominal: General: Bowel sounds are normal. Palpations: Abdomen is soft. There is no mass. Tenderness: There is no abdominal tenderness. Musculoskeletal: General: No swelling. Cervical back: Neck supple. No tenderness. Right lower leg: No edema. Left lower leg: No edema. Lymphadenopathy: Cervical: No cervical adenopathy. Skin: General: Skin is warm and dry. Neurological: Mental Status: He is oriented to person, place, and time. Psychiatric: Mood and Affect: Mood normal. Thought Content: Thought content normal. Judgment: Judgment normal. Results Laboratory Studies A1c was 5.6. LDL cholesterol was 77. Thyroid was normal at 0.72. Free T4 was normal at 1.01. White count is normal at 7.2. Hemoglobin 16.7, hematocrit 48.7. Platelets are 146. PSA was normal in last January. ASSESSMENT AND PLAN: Assessment & Plan 1. Medicare annual wellness visit, subsequent (Primary) -A wellness visit was completed with the patient today by Spencer Zarate NP. Demographics updated. The past medical history, family history, and social history reviewed and updated. The medication list (including supplements) has been reconciled. -A list of other providers involved with the patient's care and any durable medical goods providers documented. -Depression screening was completed and addressed as indicated. Cognitive function was assessed by direct observation and assessment of ability to perform ADLs and iADLs was done. As well as Mini-Cog assessment. -We reviewed, and discussed as indicated, safety issues, including falls risk assessment. -Time was spent reviewing and discussing age-appropriate screenings, immunizations and indicated laboratory monitoring. -We discussed Advanced Directives and code status and this information was updated in the chart. -BMI was assessed. Educational handout with tips for healthy diet, exercise and lifestyle modifications that will promote achieving or maintaining a healthy weight provided. The BMI will be monitored at routine office appointments as well . -Major risk factors for heart disease were identified and modifiable risk factors discussed. -A Care Plan ( Report card ) was provided to patient at the end of the appointment. Included in this is recommendations for when any testing or immunizations need to be repeated. His A1c level is within the normal range at 5.6. His LDL cholesterol level is also within the desired range at 77. Thyroid function tests, including TSH and free T4, are normal. Complete blood count (CBC) shows no signs of anemia, with hemoglobin at 16.7 and hematocrit at 48.7. Platelet count has improved from 129 to 146. PSA level was normal in last January. Colonoscopy results were unremarkable, indicating the next one is not due until 2027. He will receive the Prevnar 20 vaccine today. A PSA test is scheduled for January 2025. All necessary medications have been renewed. 2. ACP (advance care planning) -has a living will and POA -Full code 3. Type 2 diabetes mellitus with other specified complication, without long-term current use of insulin ([facility]) - Comprehensive metabolic panel; Future - Microalbumin / creatinine urine ratio; Future - Hemoglobin a1c with eag; Future -He is currently on Ozempic 2 mg once a week and reports no nausea or constipation. He mentioned that his insurance now covers a 3-month supply for $ 30. Continue current regimen. 4. Benign prostatic hyperplasia without lower urinary tract symptoms -follows with Dr. Small for prostate 5. Coronary artery disease involving rosebud coronary artery of rosebud heart without angina pectoris ([facility]) -follows with Dr. Macias -has a cath scheduled 09-01-- -Exertional dyspnea, anginal equivalent -He reports shortness of breath with exertion. A cardiac catheterization is scheduled for Saturday to investigate further. 6. Primary hypertension ([facility]) - Comprehensive metabolic panel; Future - Microalbumin / creatinine urine ratio; Future 7. Mixed hyperlipidemia ([facility]) - Lipid panel; Future 8. Thrombocytopenia ([facility]) - HEMOGRAM [place] WITHOUT DIFF [place] Future 9. Prostate cancer screening - PSA; Future Dr. Pierre was present in office suite today and is supervising patient care and available for consult. I'm following his plan of care for the above problems. Previous notes and plan were reviewed and followed. documented in this encounter [facility] 07-31-2024 Evaluation note Diagnosis Onset Date Resolution Essential (primary) hypertension acute July 31, 2 024 10:37am Nonobstructive atherosclerosis of coronary artery acute July 31, 2 024 10:37am Dyspnea on exertion noneactive Decem 2023 10:37am Atypical chest pain noneactive Decem 2023 10:37am [facility] Work Phone: 1(907) 310-396610-01-2024 History of Present illness Narrative* Spencer Zarate, GREEN HIDE INSPECTOR - 05/12/2024 8:45 AM EDT Jessenia Pyle is a 79 y.o. male presents with chief complaint of Hypertension (Pt is here to check his BP. He has been checking it at home and he said it is noticing it is going up. Home checks were 168/110. He takes the amlodipine and this will take it down to 140/90's. //He is also having pain in his left hip. He had an injection in the past and this has helped.) HPI: Hypertension Pertinent negatives include no headaches. I have reviewed and reconciled the history and medication list with the patient today. Here for elevated blood pressure. HISTORIES: PAST MEDICAL HISTORY: Past Medical History: Diagnosis Date Bronchitis CAD (coronary artery disease) (CMS/HCC) Herpes simplex without mention of complication History of medical problems ulcers Hyperlipidemia (CMS/HCC) Hypertension (CMS/HCC) Kidney stones Measles Migraines (CMS/HCC) Migraine, unspecified without mention of intractable migraine without mention of status migrainosus Mumps Osteoarthritis Pneumonia Thrombocytopenia (CMS/HCC) Type II diabetes mellitus (CMS/HCC) SURGICAL HISTORY: Past Surgical History: Procedure Laterality Date CARDIAC CATHETERIZATION 07/24/2012 COLONOSCOPY [address] Plasencia LITHOTRIPSY 2020 [place] ARTHROSCOPY KNEE DIAGNOSTIC W/WO SYNOVIAL BX SPX 10/02/2019 Rt Knee Arthroscopy - MTP TONSILLECTOMY VASECTOMY SOCIAL HISTORY: Social History Tobacco Use Smoking status: Former Current packs/day: 0.00 Average packs/day: 0.3 packs/day for 15.0 years (3.8 ttl pk-yrs) Types: Cigarettes Start date: 08/12/1954 Quit date: 08/12/1969 Years since quittin.7 Passive exposure: Never Smokeless tobacco: Never Substance Use Topics Alcohol use: Yes Alcohol/week: 4.0 - 8.0 standard drinks of alcohol Types: 4 - 8 Standard drinks or equivalent per week Comment: Caffeine: iced tea occasionally Drug use: Never Depression: Not at risk (08/14/2023) PHQ-2 PHQ-2 Score: 0 FAMILY HISTORY: Family History Problem Relation Name Age of Onset Heart disease Mother Mom Hypertension Mother Mom Stroke Mother Mom Cancer Mother Mom Hypertension Father Dad Heart disease Father Dad Breast cancer Neg Hx Colon cancer Neg Hx Ovarian cancer Neg Hx MEDICATIONS: Current Outpatient Medications Medication Instructions amLODIPine (NORVASC) 5 mg, Oral, Daily with lunch aspirin 81 mg, Oral, Every 24 hours doxazosin (CARDURA) 4 mg, Oral, Nightly ezetimibe (ZETIA) 10 mg, Oral, Nightly Multiple Vitamins-Minerals (CENTRUM ADULTS PO) Oral potassium citrate CR (Urocit-K-15) 15 mEq ER tablet 15 mEq, Oral, 2 times daily with meals rosuvastatin (CRESTOR) 40 mg, Oral, Nightly Semaglutide (2 MG/DOSE) 2 mg, Subcutaneous, Weekly tamsulosin (FLOMAX) 0.4 mg, Oral, Nightly ALLERGIES: Allergies Allergen Reactions Atorvastatin Unknown Other Reaction(s): Muscle pain, Myalgia Cerivastatin Other Reaction(s): Muscle pain, Myalgia, Unknown, Unknown Colesevelam Other Reaction(s): Unknown, Unknown, Unknown Ezetimibe Other Reaction(s): Muscle pain, Myalgia, Unknown, Unknown Other Reaction(s): Myalgia Fluvastatin Other Reaction(s): Muscle pain, Myalgia, Unknown, Unknown Lisinopril Cough Losartan Cough Metaxalone Unknown Simvastatin Other Reaction(s): Muscle pain, Myalgia, Unknown, Unknown REVIEW OF SYMPTOMS: Review of Systems Constitutional: Negative for fatigue. Neurological: Negative for weakness, light-headedness and headaches. Psychiatric/Behavioral: Negative for sleep disturbance. PHYSICAL EXAM: Visit Vitals BP 128/82 (BP Location: Left arm) Pulse 97 Ht 6' 2.75 Wt 211 lb SpO2 98% BMI 26.55 kg/m Smoking Status Former BSA 2.25 m BP Readings from Last 3 Encounters: 05/12/24 128/82 03/09/24 110/80 02/12/24 114/70 Wt Readings from Last 3 Encounters: 05/12/24 211 lb 03/09/24 215 lb 02/12/24 218 lb Physical Exam Constitutional: Appearance: He is not ill-appearing. HENT: Head: Normocephalic. Mouth/Throat: Mouth: Mucous membranes are moist. Neck: Vascular: No carotid bruit. Cardiovascular: Rate and Rhythm: Regular rhythm. Heart sounds: Normal heart sounds. Pulmonary: Breath sounds: Normal breath sounds. Abdominal: General: Bowel sounds are normal. There is no distension. Palpations: Abdomen is soft. Tenderness: There is no abdominal tenderness. Musculoskeletal: Cervical back: Neck supple. No rigidity or tenderness. Right lower leg: No edema. Left lower leg: No edema. Lymphadenopathy: Cervical: No cervical adenopathy. Skin: General: Skin is warm and dry. Neurological: Mental Status: He is oriented to person, place, and time. Psychiatric: Mood and Affect: Mood normal. Thought Content: Thought content normal. Judgment: Judgment normal. 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 He states his blood pressurehas been running high at home ranging in the 150s to 160s over 90s to over 100. He is on my amlodipine 5 mg at around noon. He takes Cardura 4 milligrams at bedtime for BPH. We recheck the blood pressure left arm is 118/78 and right arm was 120/80 and a rechecked by Dr. Pierre was 128/82. He deniesany dizziness or fatigue. He states at times he just does not feel good. Explained to him if he s getting elevated blood pressures that we would like him to bring his machine and so we can see if it correlates. He is unable to take lisinopril or losartan. He has been on Dyazide Maxide in the past. He does have a history of kidney stones so we don t want to use hydrochlorothiazide. He s advised ifhe notices elevated blood pressures and isn t feeling well and has a headache that he could take anextra half of an amlodipine to equal 2.5 mg. He agrees with the plan. We will also obtain a 12 leadEKG to monitor for LVH. And an A1c today since he is on Ozempic 2 mg weekly. A1C was 5.3. He also has a history of right hip arthritis and had an injection of catalog Four months ago and would like to have another one. If we will give him 40 of Kenalog and a half cc of lidocaine in the left bursa. He ll return here in August for his next scheduled appointment. Patient was seen, examined and discussed with Dr. Pierre and hours. Dr. Pierre was present in office suite today and is supervising patient care and available for consult. I'm following his plan of care for the above problems. Previous notes and plan were reviewed and followed. documented in this encounterCox [id number] Hospital Discharge instructions Patient Education 04/14/2024 11:46:59 EU - Cystoscopy with Stent Removal Discharge Instructions (CUSTOM) Cystoscopy with Stent Removal Voiding after the procedure: there may be some pain, burning, urgency, frequency and blood tinged urine following the procedure. These symptoms usually resolve within 2-5 days. Drink the amount of fluid it takes to keep the urine pink to yellow or clear in color. Drinking enough water and fluids will help to ease any discomfort after your procedure. If you are having problems that seem out of the ordinary, please call. If unable to contact your physician and you feel it is an emergency, go to the nearest emergency room or call 911 Diet you may resume your normal diet. Activity you may resume your normal activities Call if you have a fever over 100 degrees. Follow Up Care 04/07/2024 15:26:57 With:Jesusita SMALL Address: [address] [place], [place] [id number]- Business (1) When:07/14/2024 11:46:40 Comments:With a stone metabolic workup [facility] 09-03-2024 NotePatient Education Custom Cystoscopy with Stent Removal ? Voiding after the procedure: there may be some pain, burning, urgency, frequency and blood tingedurine following the procedure. These symptoms usually resolve within 2-5 days. Drink the amount of fluid it takes to keep the urine pink to yellow or clear in color. Drinking enough water and fluids will help to ease any discomfort after your procedure. ? If you are having problems that seem out of the ordinary, please call. ? If unable to contact your physician and you feel it is an emergency, go to the nearest emergency room or call 911 ? Diet ? you may resume your normal diet. ? Activity ? you may resume your normal activities ? Call if you have a fever over 100 degrees.[facility] 04-01-2024 Hospital Discharge instructions Patient Education 04/01/2024 14:26:06 Laser Therapy for Kidney Stones, Care After Laser Therapy for Kidney Stones, Care After This sheet gives you information about how to care for yourself after your procedure. Your health care provider may also give you more specific instructions. If you have problems or questions, contact your health care provider. What can I expect after the procedure? After the procedure, it is common to have: Pain. A burning sensation while urinating. Small amounts of blood in your urine. A need to urinate frequently. Pieces of kidney stone in your urine. Mild discomfort when urinating that may be felt in the back. You may experience this if you have a flexible tube (stent) in your ureter. Follow these instructions at home: Medicines Take ddtm-kui-rqctyao and prescription medicines only as told by your health care provider. If you were prescribed an antibiotic medicine, take it as told by your health care provider. Do notstop taking the antibiotic even if you start to feel better. Ask your health care provider if the medicine prescribed to you: ?Requires you to avoid driving or using heavy machinery. ?Can cause constipation. You may need to take actions to prevent or treat constipation, such as: ?Take opjf-npb-ocflgti or prescription medicines. ?Eat foods that are high in fiber, such as beans, whole grains, and fresh fruits and vegetables. ?Limit foods that are high in fat and processed sugars, such as fried or sweet foods. Activity Return to your normal activities as told by your health care provider. Ask your health care provider what activities are safe for you. Do not drive for 24 hours if you were given a sedative during your procedure. General instructions If your health care provider approves, you may take a warm bath to ease discomfort and burning. Drink enough fluid to keep your urine pale yellow. Your health care provider may recommend drinkingtwo 8 oz (237 mL) glasses of water per hour for a few hours after your procedure. You may be asked to strain your urine to collect any stone fragments that you pass. These fragmentsmay be tested. Keep all follow-up visits as told by your health care provider. This is important. If you have a stent, you will need to return to your health care provider to have the stent removed. Contact a health care provider if you: Have pain or a burning feeling that lasts more than 2 days. Feel nauseous. Vomit more and more often. Have difficulty urinating. Have pain that gets worse or does not get better with medicine. Get help right away if: You are unable to urinate, even if your bladder feels full. You have: ?Bright red blood or blood clots in your urine. ?More blood in your urine. ?Severe pain or discomfort. ?A fever or shaking chills. ?Abdominal pain. ?Difficulty breathing. ?Swelling in your legs. This information is not intended to replace advice given to you by your health care provider. Make sure you discuss any questions you have with your health care provider. Document Revised: 12/05/2022 Document Reviewed: 04/02/2022 [employer] Patient Education 2022 [employer] 04/01/2024 14:26:06 Laser Therapy for Kidney Stones Laser Therapy for Kidney Stones Laser therapy for kidney stones is a procedure to break up small, hard mineral deposits that form in the kidney (kidney stones). The procedure is done using a device that produces a focused beam of light (laser). The laser breaks up kidney stones into pieces that are small enough to be passed out of the body through urination or removed from the body during the procedure. You may need laser therapy if you have kidney stones that are painful or block your urinary tract. This procedure is done by inserting a tube (ureteroscope) into your kidney through the urethral opening. The urethra is the part of the body that drains urine from the bladder. In women, the urethra opens above the vaginal opening. In men, the urethra opens at the tip of the penis. The ureteroscopeis inserted through the urethra, and surgical instruments are moved through the bladder and the muscular tube that connects the kidney to the bladder (ureter) until they reach the kidney. Tell a health care provider about: Any allergies you have. All medicines you are taking, including vitamins, herbs, eye drops, creams, and pqyk-mse-nnpuaaz medicines. Any problems you or family members have had with anesthetic medicines. Any blood disorders you have. Any surgeries you have had. Any medical conditions you have. Whether you are or may be . What are the risks? Generally, this is a safe procedure. However, problems may occur, including: Infection. Bleeding. Allergic reactions to medicines. Damage to the urethra, bladder, or ureter. Urinary tract infection (UTI). Narrowing of the urethra (urethral stricture). Difficulty passing urine. Blockage of the kidney caused by a fragment of kidney stone. What happens before the procedure? Medicines Ask your health care provider about: ?Changing or stopping your regular medicines. This is especially important if you are taking diabetes medicines or blood thinners. ?Taking medicines such as aspirin and ibuprofen. These medicines can thin your blood. Do not take these medicines unless your health care provider tells you to take them. ?Taking kihu-zkf-tcoebec medicines, vitamins, herbs, and supplements. Eating and drinking Follow instructions from your health care provider about eating and drinking, which may include: 8 hours before the procedure stop eating heavy meals or foods, such as meat, fried foods, or fatty foods. 6 hours before the procedure stop eating light meals or foods, such as toast or cereal. 6 hours before the procedure stop drinking milk or drinks that contain milk. 2 hours before the procedure stop drinking clear liquids. Staying hydrated Follow instructions from your health care provider about hydration, which may include: Up to 2 hours before the procedure you may continue to drink clear liquids, such as water, clear fruit juice, black coffee, and plain tea. General instructions You may have a physical exam before the procedure. You may also have tests, such as imaging tests and blood or urine tests. If your ureter is too narrow, your health care provider may place a soft, flexible tube (stent) inside of it. The stent may be placed days or weeks before your laser therapy procedure. Plan to have someone take you home from the hospital or clinic. If you will be going home right after the procedure, plan to have someone stay with you for 24 hours. Do not use any products that contain nicotine or tobacco for at least 4 weeks before the procedure.These products include cigarettes, e-cigarettes, and chewing tobacco. If you need help quitting, ask your health care provider. Ask your health care provider: ?How your surgical site will be marked or identified. ?What steps will be taken to help prevent infection. These may include: ?Removing hair at the surgery site. ?Washing skin with a germ-killing soap. ?Taking antibiotic medicine. What happens during the procedure? An IV will be inserted into one of your veins. You will be given one or more of the following: ?A medicine to help you relax (sedative). ?A medicine to numb the area (local anesthetic). ?A medicine to make you fall asleep (general anesthetic). A ureteroscope will be inserted into your urethra. The ureteroscope will send images to a video screen in the operating room to guide your surgeon to the area of your kidney that will be treated. A small, flexible tube will be threaded through the ureteroscope and into your bladder and ureter, up to your kidney. The laser device will be inserted into your kidney through the tube. Your surgeon will pulse the laser on and off to break up kidney stones. A surgical instrument that has a tiny wire basket may be inserted through the tube into your kidneyto remove the pieces of broken kidney stone. The procedure may vary among health care providers and hospitals. What happens after the procedure? Your blood pressure, heart rate, breathing rate, and blood oxygen level will be monitored until youleave the hospital or clinic. You will be given pain medicine as needed. You may continue to receive antibiotics. You may have a stent temporarily placed in your ureter. Do not drive for 24 hours if you were given a sedative during your procedure. You may be given a strainer to collect any stone fragments that you pass in your urine. Your healthcare provider may have these tested. This information is not intended to replace advice given to you by your health care provider. Make sure you discuss any questions you have with your health care provider. Document Revised: 12/05/2022 Document Reviewed: 04/02/2022 [employer] Patient Education 2022 [employer] Follow Up Care 03/31/2024 15:56:28 With:STACI HALEY, Jesusita aPyan, URL Address: [facility] [address] , [place] [phone] When: Unknown [facility] 08-21-2024 NotePatient Education Nephrology Laser Therapy for Kidney Stones, Care After This sheet gives you information about how to care for yourself after your procedure. Your health care provider may also give you more specific instructions. If you have problems or questions, contact your health care provider. What can I expect after the procedure? After the procedure, it is common to have: ? Pain. ? A burning sensation while urinating. ? Small amounts of blood in your urine. ? A need to urinate frequently. ? Pieces of kidney stone in your urine. ? Mild discomfort when urinating that may be felt in the back. You may experience this if you have a flexible tube (stent) in your ureter. Follow these instructions at home: Medicines ? Take ivre-xwb-oojbyys and prescription medicines only as told by your health care provider. ? If you were prescribed an antibiotic medicine, take it as told by your health care provider. Do not stop taking the antibiotic even if you start to feel better. ? Ask your health care provider if the medicine prescribed to you: ? Requires you to avoid driving or using heavy machinery. ? Can cause constipation. You may need to take actions to prevent or treat constipation, such as: ? Take esmf-yxp-ynhminj or prescription medicines. ? Eat foods that are high in fiber, such as beans, whole grains, and fresh fruits and vegetables. ? Limit foods that are high in fat and processed sugars, such as fried or sweet foods. Activity ? Return to your normal activities as told by your health care provider. Ask your health care provider what activities are safe for you. ? Do not drive for 24 hours if you were given a sedative during your procedure. General instructions ? If your health care provider approves, you may take a warm bath to ease discomfort and burning. ? Drink enough fluid to keep your urine pale yellow. Your health care provider may recommend drinking two 8 oz (237 mL) glasses of water per hour for a few hours after your procedure. ? You may be asked to strain your urine to collect any stone fragments that you pass. These fragments may be tested. ? Keep all follow-up visits as told by your health care provider. This is important. If you have a stent, you will need to return to your health care provider to have the stent removed. Contact a health care provider if you: ? Have pain or a burning feeling that lasts more than 2 days. ? Feel nauseous. ? Vomit more and more often. ? Have difficulty urinating. ? Have pain that gets worse or does not get better with medicine. Get help right away if: ? You are unable to urinate, even if your bladder feels full. ? You have: ? Bright red blood or blood clots in your urine. ? More blood in your urine. ? Severe pain or discomfort. ? A fever or shaking chills. ? Abdominal pain. ? Difficulty breathing. ? Swelling in your legs. This information is not intended to replace advice given to you by your health care provider. Make sure you discuss any questions you have with your health care provider. Document Revised: 12/05/2022 Document Reviewed: 04/02/2022 [employer] Patient Education ? 2022 [employer] Laser Therapy for Kidney Stones Laser therapy for kidney stones is a procedure to break up small, hard mineral deposits that form in the kidney (kidney stones). The procedure is done using a device that produces a focused beam of light (laser). The laser breaks up kidney stones into pieces that are small enough to be passed out of the body through urination or removed from the body during the procedure. You may need laser therapy if you have kidney stones that are painful or block your urinary tract. This procedure is done by inserting a tube (ureteroscope) into your kidney through the urethral opening. The urethra is the part of the body that drains urine from the bladder. In women, the urethra opens above the vaginal opening. In men, the urethra opens at the tip of the penis. The ureteroscopeis inserted through the urethra, and surgical instruments are moved through the bladder and the muscular tube that connects the kidney to the bladder (ureter) until they reach the kidney. Tell a health care provider about: ? Any allergies you have. ? All medicines you are taking, including vitamins, herbs, eye drops, creams, and ipde-wnx-kifnxwu medicines. ? Any problems you or family members have had with anesthetic medicines. ? Any blood disorders you have. ? Any surgeries you have had. ? Any medical conditions you have. ? Whether you are or may be . What are the risks? Generally, this is a safe procedure. However, problems may occur, including: ? Infection. ? Bleeding. ? Allergic reactions to medicines. ? Damage to the urethra, bladder, or ureter. ? Urinary tract infection (UTI). ? Narrowing of the urethra (urethral stricture). ? Difficulty passing urine. ? Blockage of the kidney caused by a f (more content not included)...[facility]08-15-2024 Hospital Discharge instructions Patient Education 03/26/2024 19:13:15 Dietary Guidelines to Help Prevent Kidney Stones Dietary Guidelines to Help Prevent Kidney Stones Kidney stones are deposits of minerals and salts that form inside your kidneys. Your risk of developing kidney stones may be greater depending on your diet, your lifestyle, the medicines you take, and whether you have certain medical conditions. Most people can lower their risks of developing kidney stones by following these dietary guidelines. Your dietitian may give you more specific instructions depending on your overall health and the type of kidney stones you tend to develop. What are tips for following this plan? Reading food labels Choose foods with no salt added or low-salt labels. Limit your salt (sodium) intake to less than 1,500 mg a day. Choose foods with calcium for each meal and snack. Try to eat about 300 mg of calcium at each meal.Foods that contain 200 500 mg of calcium a serving include: ?8 oz (237 mL) of milk, cgupgyu-byrjtnewtmcp-xtolu milk, and calcium- fortifiedfruit juice. Calcium-fortified means that calcium has been added to these drinks. ?8 oz (237 mL) of kefir, yogurt, and soy yogurt. ?4 oz (114 g) of tofu. ?1 oz (28 g) of cheese. ?1 cup (150 g) of dried figs. ?1 cup (91 g) of cooked broccoli. ?One 3 oz (85 g) can of sardines or mackerel. Most people need 1,000 1,500 mg of calcium a day. Talk to your dietitian about how much calcium is recommended for you. Shopping Buy plenty of fresh fruits and vegetables. Most people do not need to avoid fruits and vegetables, even if these foods contain nutrients that may contribute to kidney stones. When shopping for convenience foods, choose: ?Whole pieces of fruit. ?Pre-made salads with dressing on the side. ?Low-fat fruit and yogurt smoothies. Avoid buying frozen meals or prepared deli foods. These can be high in sodium. Look for foods with live cultures, such as yogurt and kefir. Choose high-fiber grains, such as whole-wheat breads, oat bran, and wheat cereals. Cooking Do not add salt to food when cooking. Place a salt shaker on the table and allow each person to addtheir own salt to taste. Use vegetable protein, such as beans, textured vegetable protein (TVP), or tofu, instead of meat inpasta, casseroles, and soups. Meal planning Eat less salt, if told by your dietitian. To do this: ?Avoid eating processed or pre-made food. ?Avoid eating fast food. Eat less animal protein, including cheese, meat, poultry, or fish, if told by your dietitian. To dothis: ?Limit the number of times you have meat, poultry, fish, or cheese each week. Eat a diet free of meat at least 2 days a week. ?Eat only one serving each day of meat, poultry, fish, or seafood. ?When you prepare animal proteins, cut pieces into small portion sizes. For most meat and fish, oneserving is about the size of the palm of your hand. Eat at least five servings of fresh fruits and vegetables each day. To do this: ?Keep fruits and vegetables on hand for snacks. ?Eat one piece of fruit or a handful of berries with breakfast. ?Have a salad and fruit at lunch. ?Have two kinds of vegetables at dinner. You may be told to limit foods that are high in a substance called oxalate. These include: ?Spinach (cooked), rhubarb, beets, sweet potatoes, and Salvadorean chard. ?Peanuts. ?Potato chips, faroese fries, and baked potatoes with skin on. ?Nuts and nut products. ?Chocolate. If you regularly take a diuretic medicine, make sure to eat at least 1 or 2 servings of fruits or vegetables that are high in potassium each day. These include: ?Avocado. ?Banana. ?Stanley, prune, carrot, or tomato juice. ?Baked potato. ?Cabbage. ?Beans and split peas. Lifestyle Drink enough fluid to keep your urine pale yellow. This is the most important thing you can do. Spread your fluid intake throughout the day. If you drink alcohol: ?Limit how much you have to: ?0 1 drink a day for women who are not . ?0 2 drinks a day for men. ?Know how much alcohol is in your drink. In the [place] one drink equals one 12 oz bottle of beer (355 mL), one 5 oz glass of wine (148 mL), or one 1 oz glass of hard liquor (44 mL). Lose weight if told by your health care provider. Work with your dietitian to find an eating plan and weight loss strategies that work best for you. General information Talk to your health care provider and dietitian about taking daily supplements. Depending on your health and the cause of your kidney stones, you may be told: ?Do not take high-dose supplements of vitamin C (1,000 mg a day or more). ?To take a calcium supplement. ?To take a daily probiotic supplement. ?To take other supplements such as magnesium, fish oil, or vitamin B6. Take urbv-uiq-dxkgspw and prescription medicines only as told by your health care provider. These include supplements. What foods should I limit? Limit your intake of the following foods, or eat them as told by your dietitian. Vegetables Spinach. Rhubarb. Beets. Canned vegetables. Pickles. Olives. Baked potatoes with skin. Grains Wheat bran. Baked goods. Salted crackers. Cereals high in sugar. Meats and other proteins Nuts. Nut butters. Large portions of meat, poultry, or fish. Salted, precooked, or cured meats, such as sausages, meat loaves, and hot dogs. Dairy Cheeses. Beverages Regular soft drinks. Regular vegetable juice. Seasonings and condiments Seasoning blends with salt. Salad dressings. Soy sauce. Ketchup. Barbecue sauce. Other foods Canned soups. Canned pasta sauce. Casseroles. Pizza. Lasagna. Frozen meals. Potato chips. Tajik fries. The items listed above may not be a complete list of foods and beverages you should limit. Contact a dietitian for more information. What foods should I avoid? Talk to your dietitian about specific foods you should avoid based on the type of kidney stones youhave and your overall health. Fruits Grapefruit. The item listed above may not be a complete list of foods and beverages you should avoid. Contact adietitian for more information. Summary Kidney stones are deposits of minerals and salts that form inside your kidneys. You can lower your risk of kidney stones by making changes to your diet. The most important thing you can do is drink enough fluid. Drink enough fluid to keep your urine pale yellow. Talk to your dietitian about how much calcium you should have each day, and eat less salt and animal protein as told by your dietitian. This information is not intended to replace advice given to you by your health care provider. Make sure you discuss any questions you have with your health care provider. Document Revised: 11/08/2022 Document Reviewed: 11/08/2022 [employer] Patient Education 2022 [employer] 03/26/2024 19:13:15 Kidney Stones Kidney Stones Kidney stones are solid, rock-like deposits that form inside of the kidneys. The kidneys are a pairof organs that make urine. A kidney stone may form in a kidney and move into other parts of the urinary tract, including the tubes that connect the kidneys to the bladder (ureters), the bladder, and the tube that carries urine out of the body (urethra). As the stone moves through these areas, it can cause intense pain and block the flow of urine. Kidney stones are created when high levels of certain minerals are found in the urine. The stones are usually passed out of the body through urination, but in some cases, medical treatment may be needed to remove them. What are the causes? Kidney stones may be caused by: A condition in which certain glands produce too much parathyroid hormone (primary hyperparathyroidism), which causes too much calcium buildup in the blood. A buildup of uric acid crystals in the bladder (hyperuricosuria). Uric acid is a chemical that the body produces when you eat certain foods. It usually leaves the body in the urine. Narrowing (stricture) of one or both of the ureters. A kidney blockage that is present at (congenital obstruction). Past surgery on the kidney or the ureters. What increases the risk? The following factors may make you more likely to develop this condition: Having had a kidney stone in the past. Having a family history of kidney stones. Not drinking enough water. Eating a diet that is high in protein, salt (sodium), or sugar. Being overweight or obese. What are the signs or symptoms? Symptoms of a kidney stone may include: Pain in the side of the abdomen, right below the ribs (flank pain). Pain usually spreads (radiates)to the groin. Needing to urinate often or urgently. Painful urination. Blood in the urine (hematuria). Nausea. Vomiting. Fever and chills. How is this diagnosed? This condition may be diagnosed based on: Your symptoms and medical history. A physical exam. Blood tests. Urine tests. These may be done before and after the stone passes out of your body through urination. Imaging tests, such as a CT scan, abdominal X-ray, or ultrasound. A procedure to examine the inside of the bladder (cystoscopy). How is this treated? Treatment for kidney stones depends on the size, location, and makeup of the stones. Kidney stones will often pass out of the body through urination. You may need to: Increase your fluid intake to help pass the stone. In some cases, you may be given fluids through an IV and may need to be monitored in the hospital. Take medicine for pain. Make changes in your diet to help prevent kidney stones from coming back. Sometimes, procedures are needed to remove a kidney stone. This may involve: A procedure to break up kidney stones using: ?A focused beam of light (laser therapy). ?Shock waves (extracorporeal shock wave lithotripsy). Surgery to remove kidney stones. This may be needed if you have severe pain or have stones that block your urinary tract. Follow these instructions at home: Medicines Take xzfl-apn-yokcaos and prescription medicines only as told by your health care provider. Ask your health care provider if the medicine prescribed to you requires you to avoid driving or using heavy machinery. Eating and drinking Drink enough fluid to keep your urine pale yellow. You may be instructed to drink at least 8 10 glasses of water each day. This will help you pass the kidney stone. If directed, change your diet. This may include: ?Limiting how much sodium you eat. ?Eating more fruits and vegetables. ?Limiting how much animal protein you eat. Animal proteins include red meat, poultry, fish, and eggs. ?Eating a normal amount of calcium (1,000 1,300 mg per day). Follow instructions from your health care provider about eating or drinking restrictions. General instructions Collect urine samples as told by your health care provider. You may need to collect a urine sample: ?24 hours after you pass the stone. ?8 12 weeks after you pass the kidney stone, and every 6 12 months after that. Strain your urine every time you urinate, for as long as directed. Use the strainer that your health care provider recommends. Do not throw out the kidney stone after passing it. Keep the stone so it can be tested by your health care provider. Testing the makeup of your kidney stone may help prevent you from getting kidney stones in the future. Keep all follow-up visits. You may need follow-up X-rays or ultrasounds to make sure that your stone has passed. How is this prevented? To prevent another kidney stone: Drink enough fluid to keep your urine pale yellow. This is the best way to prevent kidney stones. Eat a healthy diet. Follow recommendations from your health care provider about foods to avoid. Recommendations vary depending on the type of kidney stone that you have. You may be instructed to eat a low-protein diet. Maintain a healthy weight. Where to find more information National Kidney Foundation (NKF): www.kidney.org Urology Care Foundation (UCF): www.urologyhealth.org Contact a health care provider if: You have pain that gets worse or does not get better with medicine. Get help right away if: You have a fever or chills. You develop severe pain. You develop new abdominal pain. You faint. You are unable to urinate. Summary Kidney stones are solid, rock-like deposits that form inside of the kidneys. Kidney stones can cause nausea, vomiting, blood in the urine, abdominal pain, and the urge to urinate often. Treatment for kidney stones depends on the size, location, and makeup of the stones. Kidney stones will often pass out of the body through urination. Kidney stones can be prevented by drinking enough fluids, eating a healthy diet, and maintaining a healthy weight. This information is not intended to replace advice given to you by your health care provider. Make sure you discuss any questions you have with your health care provider. Document Revised: 11/07/2022 Document Reviewed: 11/07/2022 Elsevier Patient Education 2022 [employer] Follow Up Care 03/26/2024 16:05:10 With:Jesusita SMALL Address: [address] [place] [address] [place] [address]- [facility] (1) [address] [place] [address] [facility] (1) When:03/29/2024 18:13:07 [facility] 08-15-2024 NoteED Patient Education Note Nephrology Dietary Guidelines to Help Prevent Kidney Stones Kidney stones are deposits of minerals and salts that form inside your kidneys. Your risk of developing kidney stones may be greater depending on your diet, your lifestyle, the medicines you take, and whether you have certain medical conditions. Most people can lower their risks of developing kidney stones by following these dietary guidelines. Your dietitian may give you more specific instructions depending on your overall health and the type of kidney stones you tend to develop. What are tips for following this plan? Reading food labels ? Choose foods with no salt added or low-salt labels. Limit your salt (sodium) intake to less than 1,500 mg a day. ? Choose foods with calcium for each meal and snack. Try to eat about 300 mg of calcium at each meal. Foods that contain 200?500 mg of calcium a serving include: ? 8 oz (237 mL) of milk, wkbojbt-yqexwrqddiri-pnebq milk, and calcium- fortifiedfruit juice. Calcium-fortified means that calcium has been added to these drinks. ? 8 oz (237 mL) of kefir, yogurt, and soy yogurt. ? 4 oz (114 g) of tofu. ? 1 oz (28 g) of cheese. ? 1 cup (150 g) of dried figs. ? 1 cup (91 g) of cooked broccoli. ? One 3 oz (85 g) can of sardines or mackerel. Most people need 1,000?1,500 mg of calcium a day. Talk to your dietitian about how much calcium is recommended for you. Shopping ? Buy plenty of fresh fruits and vegetables. Most people do not need to avoid fruits and vegetables, even if these foods contain nutrients that may contribute to kidney stones. ? When shopping for convenience foods, choose: ? Whole pieces of fruit. ? Pre-made salads with dressing on the side. ? Low-fat fruit and yogurt smoothies. ? Avoid buying frozen meals or prepared deli foods. These can be high in sodium. ? Look for foods with live cultures, such as yogurt and kefir. ? Choose high-fiber grains, such as whole-wheat breads, oat bran, and wheat cereals. Cooking ? Do not add salt to food when cooking. Place a salt shaker on the table and allow each person to add their own salt to taste. ? Use vegetable protein, such as beans, textured vegetable protein (TVP), or tofu, instead of meat in pasta, casseroles, and soups. Meal planning ? Eat less salt, if told by your dietitian. To do this: ? Avoid eating processed or pre-made food. ? Avoid eating fast food. ? Eat less animal protein, including cheese, meat, poultry, or fish, if told by your dietitian. To do this: ? Limit the number of times you have meat, poultry, fish, or cheese each week. Eat a diet free of meat at least 2 days a week. ? Eat only one serving each day of meat, poultry, fish, or seafood. ? When you prepare animal proteins, cut pieces into small portion sizes. For most meat and fish, one serving is about the size of the palm of your hand. ? Eat at least five servings of fresh fruits and vegetables each day. To do this: ? Keep fruits and vegetables on hand for snacks. ? Eat one piece of fruit or a handful of berries with breakfast. ? Have a salad and fruit at lunch. ? Have two kinds of vegetables at dinner. ? You may be told to limit foods that are high in a substance called oxalate. These include: ? Spinach (cooked), rhubarb, beets, sweet potatoes, and Salvadorean chard. ? Peanuts. ? Potato chips, faroese fries, and baked potatoes with skin on. ? Nuts and nut products. ? Chocolate. ? If you regularly take a diuretic medicine, make sure to eat at least 1 or 2 servings of fruits orvegetables that are high in potassium each day. These include: ? Avocado. ? Banana. ? Stanley, prune, carrot, or tomato juice. ? Baked potato. ? Cabbage. ? Beans and split peas. Lifestyle ? Drink enough fluid to keep your urine pale yellow. This is the most important thing you can do. Spread your fluid intake throughout the day. ? If you drink alcohol: ? Limit how much you have to: ? 0?1 drink a day for women who are not . ? 0?2 drinks a day for men. ? Know how much alcohol is in your drink. In the [place] one drink equals one 12 oz bottle of beer (355 mL), one 5 oz glass of wine (148 mL), or one 1? oz glass of hard liquor (44 mL). ? Lose weight if told by your health care provider. Work with your dietitian to find an eating planand weight loss strategies that work best for you. General information ? Talk to your health care provider and dietitian about taking daily supplements. Depending on yourhealth and the cause of your kidney stones, you may be told: ? Do not take high-dose supplements of vitamin C (1,000 mg a day or more). ? To take a calcium supplement. ? To take a daily probiotic supplement. ? To take other supplements such as magnesium, fish oil, or vitamin B6. ? Take kvjr-kdi-awmkrgj and prescription medicines only as told by your health care provider. Theseinclude (more content not included)...[facility]02-07-2024 History of Present illness Narrative* Spencer Zarate, [employer]OR - 09/18/2023 3:00 PM EST Jessenia Pyle is a 78 y.o. male presents with chief complaint of Blood Pressure Check (Pt presents for a bp check. Patient states that within the last week his BP has been low. He states that when he stands up he feels dizzy. It has been a little better in the afternoon. ) HPI: HPI Pt here for low blood pressure. He feels dizzy and lightheaded. He was going to go to the [employer] show and didn't go because he didn't feel well. HISTORIES: PAST MEDICAL HISTORY: Past Medical History: Diagnosis Date Bronchitis CAD (coronary artery disease) (CMS/HCC) Herpes simplex without mention of complication History of medical problems ulcers Hyperlipidemia (CMS/HCC) Hypertension (CMS/HCC) Kidney stones Measles Migraines (CMS/HCC) Migraine, unspecified without mention of intractable migraine without mention of status migrainosus Mumps Osteoarthritis Pneumonia Thrombocytopenia (CMS/HCC) Type II diabetes mellitus (CMS/HCC) SURGICAL HISTORY: Past Surgical History: Procedure Laterality Date CARDIAC CATHETERIZATION 07/24/2012 COLONOSCOPY [address] Plasencia LITHOTRIPSY 2020 [place] ARTHROSCOPY KNEE DIAGNOSTIC W/WO SYNOVIAL BX SPX 10/02/2019 Rt Knee Arthroscopy - MTP TONSILLECTOMY VASECTOMY SOCIAL HISTORY: Social History Tobacco Use Smoking status: Former Packs/day: 0.25 Years: 15.00 Additional pack years: 0.00 Total pack years: 3.75 Types: Cigarettes Quit date: 08/12/1969 Years since quittin.1 Passive exposure: Never Smokeless tobacco: Never Substance Use Topics Alcohol use: Yes Alcohol/week: 4.0 - 8.0 standard drinks of alcohol Types: 4 - 8 Standard drinks or equivalent per week Comment: Caffeine: iced tea occasionally Drug use: Never Depression: Not at risk (08/14/2023) PHQ-2 PHQ-2 Score: 0 FAMILY HISTORY: Family History Problem Relation Name Age of Onset Heart disease Mother Mom Hypertension Mother Mom Stroke Mother Mom Cancer Mother Mom Hypertension Father Dad Heart disease Father Dad Breast cancer Neg Hx Colon cancer Neg Hx Ovarian cancer Neg Hx MEDICATIONS: Current Outpatient Medications Medication Instructions amLODIPine (Norvasc) 5 MG tablet TAKE 1 TABLET BY MOUTH DAILY aspirin 81 mg, Oral, Every 24 hours bisoprolol (ZEBETA) 10 mg, Oral, Daily doxazosin (CARDURA) 4 mg, Oral, Daily ezetimibe (ZETIA) 10 mg, Oral, Daily with evening meal isosorbide mononitrate ER (IMDUR) 30 mg, Oral, Every 24 hours Multiple Vitamins-Minerals (CENTRUM ADULTS PO) Oral potassium citrate CR (Urocit-K-15) 15 mEq ER tablet 15 mEq, 2 times daily with meals rosuvastatin (Crestor) 40 MG tablet TAKE 1 TABLET BY MOUTH AT NIGHT semaglutide (OZEMPIC) 1 mg, Subcutaneous, Weekly tamsulosin (FLOMAX) 0.4 mg, Oral, Daily ALLERGIES: Allergies Allergen Reactions Atorvastatin Unknown Other Reaction(s): Muscle pain, Myalgia Cerivastatin Other Reaction(s): Muscle pain, Myalgia, Unknown, Unknown Colesevelam Other Reaction(s): Unknown, Unknown, Unknown Ezetimibe Other Reaction(s): Muscle pain, Myalgia, Unknown, Unknown Other Reaction(s): Myalgia Fluvastatin Other Reaction(s): Muscle pain, Myalgia, Unknown, Unknown Lisinopril Cough Losartan Cough Metaxalone Unknown Simvastatin Other Reaction(s): Muscle pain, Myalgia, Unknown, Unknown REVIEW OF SYMPTOMS: Review of Systems Constitutional: Negative for fatigue. Respiratory: Negative for cough and shortness of breath. Cardiovascular: Negative for chest pain and palpitations. Psychiatric/Behavioral: Negative for sleep disturbance. PHYSICAL EXAM: Visit Vitals BP 94/70 Pulse 92 Ht 6' Wt 223 lb SpO2 96% BMI 30.24 kg/m Smoking Status Former BSA 2.27 m Standing BP: 90/70 Physical Exam Constitutional: Appearance: He is not ill-appearing. HENT: Head: Normocephalic. Mouth/Throat: Mouth: Mucous membranes are moist. Eyes: Extraocular Movements: Extraocular movements intact. Neck: Vascular: No carotid bruit. Cardiovascular: Rate and Rhythm: Normal rate and regular rhythm. Heart sounds: No murmur heard. Pulmonary: Effort: No respiratory distress. Breath sounds: Normal breath sounds. Musculoskeletal: Cervical back: Neck supple. No rigidity or tenderness. Lymphadenopathy: Cervical: No cervical adenopathy. Skin: General: Skin is warm and dry. Neurological: Mental Status: He is alert and oriented to person, place, and time. Psychiatric: Mood and Affect: Mood normal. Thought Content: Thought content normal. Judgment: Judgment normal. ASSESSMENT AND PLAN: Assessment/Plan Diagnoses and all orders for this visit: 1. Orthostatic hypotension --stop bisoprolol/hydrochlorothiazide 10/6.25 mg and change to bisoprolol 10 mg daily --Stop amlodipine 5 mg for now. If BP increases over 140 systolic, will need to resume 1/2 tablet 2. Primary hypertension (CMS/HCC) - bisoprolol (Zebeta) 10 MG tablet; Take 1 tablet (10 mg) by mouth in the morning. Dispense: 30 tablet; Refill: 3 3. Lightheadedness Dictated, but not read Patient presents today with orthostatic hypotension. His blood pressure has been running in the 90s. His wanted him to come in. He held his amlodipine 5 mg 12 noon dose because he seems to not feel well after he takes some of his blood pressure medication s. He is on bisoprolol/hydrochlorothiazide 10/6.25 mg daily and amlodipine 5 mg at noon. Blood pressure today was 94/70 sitting and standin g was 90/70. I will drop the 6.25 mg of hydrochlorothiazide and continue the bisoprolol 10 mg once a day. At this point in time he s going to hold his amlodipine 5 mg and if the blood pressure increases above 140 systolic, he will resume a half a tablet of amlodipine table 2.5 mg once a day. The rest of review systems is negative. He states his shortness of breath is better. He denies having any chest pain. He will call us in a few weeks with blood pressure readings and let us know how those are running. Rest of the physical exam is within normal limits. Heart is regular without murmur. Lungs are clear. No lower leg edema. He is advised to hydrate and to move slowly when going from sitting to standing position. documented in this encounterCox [id number] Hospital Discharge instructions Patient Education 06/10/2023 11:40:57 Kidney Stones Kidney Stones Kidney stones are solid, rock-like deposits that form inside of the kidneys. The kidneys are a pairof organs that make urine. A kidney stone may form in a kidney and move into other parts of the urinary tract, including the tubes that connect the kidneys to the bladder (ureters), the bladder, and the tube that carries urine out of the body (urethra). As the stone moves through these areas, it can cause intense pain and block the flow of urine. Kidney stones are created when high levels of certain minerals are found in the urine. The stones are usually passed out of the body through urination, but in some cases, medical treatment may be needed to remove them. What are the causes? Kidney stones may be caused by: A condition in which certain glands produce too much parathyroid hormone (primary hyperparathyroidism), which causes too much calcium buildup in the blood. A buildup of uric acid crystals in the bladder (hyperuricosuria). Uric acid is a chemical that the body produces when you eat certain foods. It usually exits the body in the urine. Narrowing (stricture) of one or both of the ureters. A kidney blockage that is present at (congenital obstruction). Past surgery on the kidney or the ureters, such as gastric bypass surgery. What increases the risk? The following factors may make you more likely to develop this condition: Having had a kidney stone in the past. Having a family history of kidney stones. Not drinking enough water. Eating a diet that is high in protein, salt (sodium), or sugar. Being overweight or obese. What are the signs or symptoms? Symptoms of a kidney stone may include: Pain in the side of the abdomen, right below the ribs (flank pain). Pain usually spreads (radiates)to the groin. Needing to urinate frequently or urgently. Painful urination. Blood in the urine (hematuria). Nausea. Vomiting. Fever and chills. How is this diagnosed? This condition may be diagnosed based on: Your symptoms and medical history. A physical exam. Blood tests. Urine tests. These may be done before and after the stone passes out of your body through urination. Imaging tests, such as a CT scan, abdominal X-ray, or ultrasound. A procedure to examine the inside of the bladder (cystoscopy). How is this treated? Treatment for kidney stones depends on the size, location, and makeup of the stones. Kidney stones will often pass out of the body through urination. You may need to: Increase your fluid intake to help pass the stone. In some cases, you may be given fluids through an IV and may need to be monitored at the hospital. Take medicine for pain. Make changes in your diet to help prevent kidney stones from coming back. Sometimes, medical procedures are needed to remove a kidney stone. This may involve: A procedure to break up kidney stones using: ?A focused beam of light (laser therapy). ?Shock waves (extracorporeal shock wave lithotripsy). Surgery to remove kidney stones. This may be needed if you have severe pain or have stones that block your urinary tract. Follow these instructions at home: Medicines Take omza-sqm-ubnhnmf and prescription medicines only as told by your health care provider. Ask your health care provider if the medicine prescribed to you requires you to avoid driving or using heavy machinery. Eating and drinking Drink enough fluid to keep your urine pale yellow. You may be instructed to drink at least 8 10 glasses of water each day. This will help you pass the kidney stone. If directed, change your diet. This may include: ?Limiting how much sodium you eat. ?Eating more fruits and vegetables. ?Limiting how much animal protein such as red meat, poultry, fish, and eggs you eat. Follow instructions from your health care provider about eating or drinking restrictions. General instructions Collect urine samples as told by your health care provider. You may need to collect a urine sample: ?24 hours after you pass the stone. ?8 12 weeks after passing the kidney stone, and every 6 12 months after that. Strain your urine every time you urinate, for as long as directed. Use the strainer that your health care provider recommends. Do not throw out the kidney stone after passing it. Keep the stone so it can be tested by your health care provider. Testing the makeup of your kidney stone may help prevent you from getting kidney stones in the future. Keep all follow-up visits as told by your health care provider. This is important. You may need follow-up X-rays or ultrasounds to make sure that your stone has passed. How is this prevented? To prevent another kidney stone: Drink enough fluid to keep your urine pale yellow. This is the best way to prevent kidney stones. Eat a healthy diet and follow recommendations from your health care provider about foods to avoid. You may be instructed to eat a low-protein diet. Recommendations vary depending on the type of kidney stone that you have. Maintain a healthy weight. Where to find more information National Kidney Foundation (NKF): www.kidney.org Urology Care Foundation (UCF): www.urologyhealth.org Contact a health care provider if: You have pain that gets worse or does not get better with medicine. Get help right away if: You have a fever or chills. You develop severe pain. You develop new abdominal pain. You faint. You are unable to urinate. Summary Kidney stones are solid, rock-like deposits that form inside of the kidneys. Kidney stones can cause nausea, vomiting, blood in the urine, abdominal pain, and the urge to urinate frequently. Treatment for kidney stones depends on the size, location, and makeup of the stones. Kidney stones will often pass out of the body through urination. Kidney stones can be prevented by drinking enough fluids, eating a healthy diet, and maintaining a healthy weight. This information is not intended to replace advice given to you by your health care provider. Make sure you discuss any questions you have with your health care provider. Document Revised: 04/18/2022 Document Reviewed: 04/02/2022 [employer] Patient Education 2022 [employer]. Follow Up Care 04/23/2022 11:06:30 With:STACI HALEY Jesusita Payan, URL Address: [facility] [address], [place] [id number]- [id number] When: Unknown Comments:1 yr [facility] 05-01-2023 History of Present illness Narrative* 77-year-old gentleman was most recently seen by me in December 2022. My initial visit with him was in September 2022. He continues to complain of exertional shortness of breath. He says his cough is better. I had ordered a respiratory panel or suggested a respiratory panel, I do not see that this was done. Patient is predominant and quality of life limiting issue is his exertional shortness of breath. His medication list is incorrect and unreliable. He initially told me that he takes lisinopril and losartan. Subsequently we found out that he is not on lisinopril probably but on losartan we had to call his over the telephone, she was at work, and she agrees to review all his medications, and update us. She is very concerned about his shortness of breath. * His echo results and laboratory data were reviewed. Echo does not explain his shortness of breath. His pulmonary function testing also does not explain the shortness of breath. Patient quit smoking years ago. His pulmonary function testing results do not explain the shortness of breath. * No falls no lightheadedness. Not taking cetirizine as suggested. No orthopnea PND or palpitations. Because of degenerative joint disease, for which she undergoes therapy, is perfusion study with Lexiscan Myoview, hence unable to assess heart rate response to activity. It was reported to show normal perfusion. * Assessment: * 1. Hypertension-at target * 2. Hyperlipidemia-on rosuvastatin, triglycerides elevated, recently ezetimibe was added. * 3. Patient reports that he sometimes gets achy muscles with statins. * 4. Lexiscan Myoview December 2021-normal perfusion LVEF 73% transient ischemic dilatation 0.92 which is normal no evidence of attenuation artifact * 5. Cardiac catheterization July 2012-LVEDP 0 to 14 mmHg no gradient across the aortic valve LVEF 55 to 60% 30% mid LAD first obtuse marginal branch 70% stenosis small caliber vessel RCA without significant disease medical management recommended * 6. Intolerance to several statins-currently tolerating rosuvastatin 20 mg daily without untoward effects * 7. Ex-smoker, quit about 40 years ago * 8. Pulmonary function testing November 2022-normal diffusion capacity evidence of mild restriction without obvious obstruction no significant bronchodilator response no obvious air trapping or hyperinflation. Diffusion capacity is adjusted for alveolar volume, it is supra normal. * 9. Possible intolerance to MICHELLE inhibitors and/or angiotensin receptor blockers-cough could be related to this or partly related to this * 10. Patient is on albuterol inhaler, he says it does not make any difference in his breathing, if he has underlying reactive airway disease, could bisoprolol be a contributing factor to his shortnessof breath? * 11. Could bisoprolol be causing chronotropic blunting. Patient says his knee is getting a little bit better, but he is very hesitant to walk on a treadmill at this time. * 12. Inaccurate medication list. * 13. Echocardiogram January 09, 2023-left atrium 4.3 cm LV wall thickness 1.3/1.4 cm LV end-systolic diameter 3.1 cm RV systolic pressure 25 mmHg TAPSE 2.3 IVC normal * Recommendations: * 1. I did not suggest any change in his medications today, we need to know what exactly he is taking. * 2. I have a low threshold for proceeding with right and left heart catheterization and possible intervention, patient will be seen in the near future to discuss this further. * 3. Patient understands that if symptoms escalate while awaiting additional testing, prompt medical attention is warranted. Once again I get the sense that the symptoms have been going on for few months. -[facility] DO Work Phone: 1(826) 326-434702-01-2023 History of Present illness Narrative* Patient was most recently seen in September 2022. He has multiple cardiac risk factors and mild coronary artery disease with preserved LV systolic function he has intolerance to lisinopril, details are not clear. He reports shortness of breath and a cough, and at times audible wheezing. He says thathe has seasonal allergies. He says he does not have symptoms of sleep apnea. On further review of systems he says that for the last 6 to 12 months he has had shortness of breath cough and occasional wheezing. Pulmonary function testing was done, and I reviewed the results. It is not diagnostic. Ex-smoker having quit 40+ years ago. Patient says he also had a CT of the chest that was unremarkable. He does have postnasal drip. * He has statin intolerance. He remains on Trelegy. Does not report any fever or chills. Denies lowerextremity edema or chest pressure tightness or palpitations. No recent laboratory data to review * Assessment: * 1. Hypertension-at target * 2. Hyperlipidemia-on rosuvastatin, triglycerides elevated, recently ezetimibe was added. * 3. Patient reports that he sometimes gets achy muscles with statins. * 4. Lexiscan Myoview December 2021-normal perfusion LVEF 73% transient ischemic dilatation 0.92 which is normal no evidence of attenuation artifact * 5. Cardiac catheterization July 2012-LVEDP 0 to 14 mmHg no gradient across the aortic valve LVEF 55 to 60% 30% mid LAD first obtuse marginal branch 70% stenosis small caliber vessel RCA without significant disease medical management recommended * 6. Statin intolerance * 7. Ex-smoker, quit about 40 years ago * 8. Pulmonary function testing November 2022-normal diffusion capacity evidence of mild restriction without obvious obstruction no significant bronchodilator response no obvious air trapping or hyperinflation. Diffusion capacity is adjusted for alveolar volume, it is supra normal. * 9. Intolerance to lisinopril * Despite the pulmonary function testing not showing any evidence of reactive airway disease, clinically there is a component of this, and it could be postviral or allergy induced, or it could be a side effect of the losartan, if patient has a tendency for wheezing, bisoprolol could be making it worse 2. * Although this patient has statin intolerance, he has been tolerating 20 mg of rosuvastatin at this time. Clearly he has postnasal drip and congestion. * Recommendations: * 1. Discontinue losartan at this time * 2. Doxazosin 2 mg daily * 3. Consider respiratory panel, differential diagnosis could also include COVID 19. Will defer to primary. * 4. Cetirizine 5 mg at bedtime * 5. Follow-up in 4 weeks, if the above measures fail to provide relief, then I will resume the losartan and work on weaning him off the bisoprolol. * 6. I do not see that an echocardiogram has been done, we will schedule an echocardiogram as well. -[facility]-Brooke Blanco DO Work Phone: 1(959) 750-355701-25-2023 Miscellaneous Notes* Telephone Encounter - Debbie Shipley Pss - 09/05/2022 9:41 AM EST Lee Knowles, OD [address] [place] [phone] Via documented in this [facility]Day[facility] Instructions* Patient Instructions* Tamanna Porras MD - 08/31/2022 1:28 PM EST Instructions after Selective laser trabeculoplasty (SLT) Use ketorolac (cavanaugh) to treated eye 2 x daily x 1 week and STOP Continue your usual drops as scheduled. It is normal for the eye to feel dry after to procedure, and you may have additional tearing or light sensitivity. Use (or increase) artificial tear use. Use tylenol and ibuprofen if medically allowed. Symptom should improve within 24 hours. Your vision may be slightly blurry after the procedure. Vision should be back to baseline within 24hours. Call the office if vision does not return to baseline or if post-procedure symptoms do not resolve. documented in this encounterDayton [facility] Center01-20-2023 History of Present illness Narrative* Tamanna Porras MD - 08/31/2022 1:25 PM EST Tmax mid teens , ; Pachy , Family history Gonioscopy Lasers and surgeries OD SLT 08/31/2022 (IOP 14--> OS SLT 07/20/2022 (IOP 13-->10) Ocular Medication Intol, Non-efficacy, barriers Currently using Testing -- HVF: -- OCT 06/01/2022 nasal shift of RNFL distribution, mod temp thinning OU -- GCA 06/01/2022 mod-severe temp thinning (H40.1224) Low tension glaucoma of left eye, indeterminate stage (primary encounter diagnosis) Comment: IOP 20-30% lower than pre-treat s/p SLT Plan: Monitor (H40.001) Glaucoma suspect of right eye Comment: IOP low; offered SLT given high risk Plan: Patient tolerated SLT well today OD Ketorolac OD 2 x daily x 1 week then stop RTC f/u Dr. Knowles 6-8 weeks post SLT SP as needed I have confirmed and edited as necessary the relevant ophthalmic history, ROS, and the neuro exam findings as obtained by others. I have seen and examined this patient. I have discussed the case and the management of this patient's care with the Resident/Fellow/Gardener Florist, if applicable. I also have reviewed and agree with the assessment and plan as stated above and agree with all of its relevant components. Tamanna Porras MD August 31, 2022 1:27 PM documented in this encounterDayton [facility] Center12-15-2022 Miscellaneous Notes* Telephone Encounter - Debbie Shipley [facility] - 07/26/2022 10:19 AM EST Faxed letter to Lee Knowles, OD [address] [place] [id number] Via documented in this encounterDayton [facility] Center12-09-2022 NoteHNO ID: [id number] Author: Tamanna Porras MD Service: ? Author Type: Physician Type: Progress Notes Filed: 07/20/2022 1:17 PM Note Text: Tmax mid teens , ; Pachy , Family history Gonioscopy Lasers and surgeries OD OS Ocular Medication Intol, Non-efficacy, barriers Currently using Testing -- HVF: -- OCT 06/01/2022 nasal shift of RNFL distribution, mod temp thinning OU -- GCA 06/01/2022 mod-severe temp thinning (H40.1224) Low tension glaucoma of left eye, indeterminate stage (primary encounter diagnosis) Comment: Referred by Dr. Knowles - reviewed exam documents from 03/19/2022 Patient deemed glaucoma suspect due to C:D asymmetry; OCT shows symmetric nasal shift of RNFL distribution with bilateral temporal thinning which may be variant however nerve LEFT EYE with concerning inferior thinning on exam suspicious for early LTG Plan: Patient tolerated SLT today without incident Ketorolac OS 2 x daily x 1 week then stop (H40.001) Glaucoma suspect of right eye Comment: IOP low Plan: OCT OPTIC NERVE CIRRUS OU (BOTH EYES), OCT OPTIC NERVE CIRRUS OU (BOTH EYES) Monitor for now - if IOP effective OS will consider OD RTC VaTa post SLT OS and possible SLT OD I have confirmed and edited as necessary the relevant ophthalmic history, ROS, and the neuro exam findings as obtained by others. I have seen and examined this patient. I have discussed the case and the management of this patient's care with the Resident/Fellow/Gardener Florist, if applicable. I also have reviewed and agree with the assessment and plan as stated above and agree with all of its relevant components. Tamanna Porras MD July 20, 2022 1:14 [facility] 07-20-2022 Miscellaneous Notes* Telephone Encounter - Kristin Macedo - 07/20/2022 1:47 PM EST Images from the original note were not included. Spoke with patient and advised to keep appt and that laser may possibly done that day. Booked laserroom per Per Dr Andre Porras MD You; Kiko Murillo Opth Nurse Triage 28 minutes ago (1:16 PM) I had checked the future appointments and must not have seen the already scheduled follow-up. Since he is coming in end of August, I would prefer to have it as a possible laser SLT OD Tamanna Porras MD 07/20/2022 1:15 PM Per MARGRET Mcguire LPN You; Anita Lopez 3 hours ago (9:59 AM) MARGRET Please do not double book at 12:30pm-instead use the 12:45pm laser slot * Telephone Encounter - Kristin Macedo - 07/20/2022 9:42 AM EST Patient states he was told to follow up with Dr Knowles in 6 weeks but there was also a discussion to have the SLT done on right eye-currently there are no notes indicating that. Please advise if this can be done at follow up scheduled on 08/31/22. documented in this encounterDayton [facility] Center12-09-2022 History of Present illness Narrative* Tamanna Porras MD - 07/20/2022 1:13 PM EST Tmax mid teens , ; Pachy , Family history Gonioscopy Lasers and surgeries OD OS Ocular Medication Intol, Non-efficacy, barriers Currently using Testing -- HVF: -- OCT 06/01/2022 nasal shift of RNFL distribution, mod temp thinning OU -- GCA 06/01/2022 mod-severe temp thinning (H40.1224) Low tension glaucoma of left eye, indeterminate stage (primary encounter diagnosis) Comment: Referred by Dr. Knowles - reviewed exam documents from 03/19/2022 Patient deemed glaucoma suspect due to C:D asymmetry; OCT shows symmetric nasal shift of RNFL distribution with bilateral temporal thinning which may be variant however nerve LEFT EYE with concerninginferior thinning on exam suspicious for early LTG Plan: Patient tolerated SLT today without incident Ketorolac OS 2 x daily x 1 week then stop (H40.001) Glaucoma suspect of right eye Comment: IOP low Plan: OCT OPTIC NERVE CIRRUS OU (BOTH EYES), OCT OPTIC NERVE CIRRUS OU (BOTH EYES) Monitor for now - if IOP effective OS will consider OD RTC VaTa post SLT OS and possible SLT OD I have confirmed and edited as necessary the relevant ophthalmic history, ROS, and the neuro exam findings as obtained by others. I have seen and examined this patient. I have discussed the case and the management of this patient's care with the Resident/Fellow/Gardener Florist, if applicable. I also have reviewed and agree with the assessment and plan as stated above and agree with all of its relevant components. Tamanna Porras MD July 20, 2022 1:14 PM documented in this encounterDayton [facility] Medical Center12-09-2022 Instructions* Patient Instructions* Tamanna Porras MD - 07/20/2022 9:15 AM EST Instructions after Selective laser trabeculoplasty (SLT) Use ketorolac (cavanaugh) to treated eye 2 x daily x 1 week and STOP Continue your usual drops as scheduled. It is normal for the eye to feel dry after to procedure, and you may have additional tearing or light sensitivity. Use (or increase) artificial tear use. Use tylenol and ibuprofen if medically allowed. Symptom should improve within 24 hours. Your vision may be slightly blurry after the procedure. Vision should be back to baseline within 24hours. Call the office if vision does not return to baseline or if post-procedure symptoms do not resolve. documented in this encounterDayton [facility] Center11-07-2022 Miscellaneous Notes* Telephone Encounter - Debbie Shipley [facility] - 06/18/2022 10:24 AM EST Faxed letter and mailed color copies to Lee Knowles, OD [address] [place] [phone] Via documented in this encounterDayton Va Medical Center10-21-2022 NoteHNO ID: [id number] Author: Tamanna Porras MD Service: ? Author Type: Physician Type: Progress Notes Filed: 06/12/2022 12:26 PM Note Text: Tmax mid teens , ; Pachy , Family history Gonioscopy Lasers and surgeries OD OS Ocular Medication Intol, Non-efficacy, barriers Currently using Testing -- HVF: -- OCT 06/01/2022 nasal shift of RNFL distribution, mod temp thinning OU -- GCA 06/01/2022 mod-severe temp thinning (H40.1224) Low tension glaucoma of left eye, indeterminate stage (primary encounter diagnosis) Comment: Referred by Dr. Knowles - reviewed exam documents from 03/19/2022 Patient deemed glaucoma suspect due to C:D asymmetry; OCT shows symmetric nasal shift of RNFL distribution with bilateral temporal thinning which may be variant however nerve LEFT EYE with concerning inferior thinning suspicious for early LTG Plan: Discussed findings, discussed need to lower IOP Offer drops vs SLT, patient chose latter The risks, benefits, and alternatives to SLT were discussed in detail with the patient, including the risk of an intraocular pressure spike, inflammation, and ineffectiveness. The patient appeared to understand and wished to proceed with the procedure LEFT EYE. (H40.001) Glaucoma suspect of right eye Comment: IOP low Plan: OCT OPTIC NERVE CIRRUS OU (BOTH EYES), OCT OPTIC NERVE CIRRUS OU (BOTH EYES) Monitor for now RTC SLT LEFT EYE on a Saturday I have confirmed and edited as necessary the relevant ophthalmic history, ROS, and the neuro exam findings as obtained by others. I have seen and examined this patient. I have discussed the case and the management of this patient's care with the Resident/Fellow/Gardener Florist, if applicable. I also have reviewed and agree with the assessment and plan as stated above and agree with all of its relevant components. Tamanna Porras MD June 01, 2022 1:37 [facility] 06-01-2022 Instructions* Patient Instructions* Tamanna Porras MD - 06/01/2022 1:39 PM EDT Selective Laser Trabeculoplasty The laser procedure most often used for open angle glaucoma is laser trabeculoplasty. The laser is focused at regularly spaced intervals in the eye's drain channels. This procedure is believed to reduce intraocular pressure by activating cells that line the drain channels to function more effectively in draining aqueous humor fluid out of the eye. Laser trabeculoplasty is performed using only numbing eye drops, and significant discomfort is not expected. Patients may exhibit mild blurring, foreign body sensation, or light sensitivity for 24 hours after the procedure. It can be performed in the office and there are no activity limitations afterwards. This treatment usually does not replace or eliminate eye drops, but supplements them to provide additional intraocular pressure reduction. Effectiveness of the procedure can be determined 5-6 weeks after it is performed. Usually, there is a 2 in 3 chance that the procedure will be effective. documented in this encounterDayton [facility] Medical Center10-21-2022 History of Present illness Narrative* Tamanna Porras MD - 06/01/2022 1:37 PM EDT Tmax mid teens , ; Pachy , Family history Gonioscopy Lasers and surgeries OD OS Ocular Medication Intol, Non-efficacy, barriers Currently using Testing -- HVF: -- OCT 06/01/2022 nasal shift of RNFL distribution, mod temp thinning OU -- GCA 06/01/2022 mod-severe temp thinning (H40.1224) Low tension glaucoma of left eye, indeterminate stage (primary encounter diagnosis) Comment: Referred by Dr. Knowles - reviewed exam documents from 03/19/2022 Patient deemed glaucoma suspect due to C:D asymmetry; OCT shows symmetric nasal shift of RNFL distribution with bilateral temporal thinning which may be variant however nerve LEFT EYE with concerninginferior thinning suspicious for early LTG Plan: Discussed findings, discussed need to lower IOP Offer drops vs SLT, patient chose latter The risks, benefits, and alternatives to SLT were discussed in detail with the patient, including the risk of an intraocular pressure spike, inflammation, and ineffectiveness. The patient appeared tounderstand and wished to proceed with the procedure LEFT EYE. (H40.001) Glaucoma suspect of right eye Comment: IOP low Plan: OCT OPTIC NERVE CIRRUS OU (BOTH EYES), OCT OPTIC NERVE CIRRUS OU (BOTH EYES) Monitor for now RTC SLT LEFT EYE on a Saturday I have confirmed and edited as necessary the relevant ophthalmic history, ROS, and the neuro exam findings as obtained by others. I have seen and examined this patient. I have discussed the case and the management of this patient's care with the Resident/Fellow/Gardener Florist, if applicable. I also have reviewed and agree with the assessment and plan as stated above and agree with all of its relevant components. Tamanna Porras MD June 01, 2022 1:37 PM documented in this encounterDayton Va Medical Center09-12-2022 Hospital Discharge instructions Patient Education 04/23/2022 10:49:55 Kidney Stones, [id number] Kidney Stones Kidney stones are rock-like masses that form inside of the kidneys. Kidneys are organs that make pee (urine). A kidney stone may move into other parts of the urinary tract, including: The tubes that connect the kidneys to the bladder (ureters). The bladder. The tube that carries urine out of the body (urethra). Kidney stones can cause very bad pain and can block the flow of pee. The stone usually leaves your body (passes) through your pee. You may need to have a doctor take out the stone. What are the causes? Kidney stones may be caused by: A condition in which certain glands make too much parathyroid hormone (primary hyperparathyroidism). A buildup of a type of crystals in the bladder made of a chemical called uric acid. The body makes uric acid when you eat certain foods. Narrowing (stricture) of one or both of the ureters. A kidney blockage that you were born with. Past surgery on the kidney or the ureters, such as gastric bypass surgery. What increases the risk? You are more likely to develop this condition if: You have had a kidney stone in the past. You have a family history of kidney stones. You do not drink enough water. You eat a diet that is high in protein, salt (sodium), or sugar. You are overweight or very overweight (obese). What are the signs or symptoms? Symptoms of a kidney stone may include: Pain in the side of the belly, right below the ribs (flank pain). Pain usually spreads (radiates) to the groin. Needing to pee often or right away (urgently). Pain when going pee (urinating). Blood in your pee (hematuria). Feeling like you may vomit (nauseous). Vomiting. Fever and chills. How is this treated? Treatment depends on the size, location, and makeup of the kidney stones. The stones will often pass out of the body through peeing. You may need to: Drink more fluid to help pass the stone. In some cases, you may be given fluids through an IV tube put into one of your veins at the hospital. Take medicine for pain. Make changes in your diet to help keep kidney stones from coming back. Sometimes, medical procedures are needed to remove a kidney stone. This may involve: A procedure to break up kidney stones using a beam of light (laser) or shock waves. Surgery to remove the kidney stones. Follow these instructions at home: Medicines Take [id number] and prescription medicines only as told by your doctor. Ask your doctor if the medicine prescribed to you requires you to avoid driving or using heavy machinery. Eating and drinking Drink enough fluid to keep your pee pale yellow. You may be told to drink at least 8 10 glasses of water each day. This will help you pass the stone. If told by your doctor, change your diet. This may include: ?Limiting how much salt you eat. ?Eating more fruits and vegetables. ?Limiting how much meat, poultry, fish, and eggs you eat. Follow instructions from your doctor about eating or drinking restrictions. General instructions Collect pee samples as told by your doctor. You may need to collect a pee sample: ?24 hours after a stone comes out. ?8 12 weeks after a stone comes out, and every 6 12 months after that. Strain your pee every time you pee (urinate), for as long as told. Use the strainer that your doctor recommends. Do not throw out the stone. Keep it so that it can be tested by your doctor. Keep all follow-up visits as told by your doctor. This is important. You may need follow-up tests. How is this prevented? To prevent another kidney stone: Drink enough fluid to keep your pee pale yellow. This is the best way to prevent kidney stones. Eat healthy foods. Avoid certain foods as told by your doctor. You may be told to eat less protein. Stay at a healthy weight. Where to find more information National Kidney Foundation (NKF): www.kidney.org [facility] (U[facility]): www.urologyhealth.org Contact a doctor if: You have pain that gets worse or does not get better with medicine. Get help right away if: You have a fever or chills. You get very bad pain. You get new pain in your belly (abdomen). You pass out (faint). You cannot pee. Summary Kidney stones are rock-like masses that form inside of the kidneys. Kidney stones can cause very bad pain and can block the flow of pee. The stones will often pass out of the body through peeing. Drink enough fluid to keep your pee pale yellow. This information is not intended to replace advice given to you by your health care provider. Make sure you discuss any questions you have with your health care provider. Document Released: 01/14/2009 Document Revised: 12/15/2019 Document Reviewed: 12/15/2019 [employer] Patient Education 2020 [employer] Follow Up Care 02/27/2021 11:54:33 With:STACI HALEY, Jesusita Payan, URL Address: [facility] [address], [place] [address] [phone] When: Unknown [facility] 05-01-2022 History of Present illness Narrative* History 2 so far ; * 1. Hypertension * 2. Hyperlipidemia-on rosuvastatin, triglycerides elevated, recently ezetimibe was added. * 3. Patient reports that he sometimes gets achy muscles with statins. * 4. Lexiscan Myoview December 2021-normal perfusion LVEF 73% transient ischemic dilatation 0.92 which is normal no evidence of attenuation artifact * 5. Cardiac catheterization July 2012-LVEDP 0 to 14 mmHg no gradient across the aortic valve LVEF 55 to 60% 30% mid LAD first obtuse marginal branch 70% stenosis small caliber vessel RCA without significant disease medical management recommended * 6. Intolerance to several statins-currently tolerating rosuvastatin 20 mg daily without untoward effects * 7. Ex-smoker, quit about 40 years ago * 8. Pulmonary function testing November 2022-normal diffusion capacity evidence of mild restriction without obvious obstruction no significant bronchodilator response no obvious air trapping or hyperinflation. Diffusion capacity is adjusted for alveolar volume, it is supra normal. * 9. Possible intolerance to MICHELLE inhibitors and/or angiotensin receptor blockers-cough could be related to this or partly related to this * 10. Patient is on albuterol inhaler, he says it does not make any difference in his breathing, if he has underlying reactive airway disease, could bisoprolol be a contributing factor to his shortnessof breath? * 11. Could bisoprolol be causing chronotropic blunting. Patient says his knee is getting a little bit better, but he is very hesitant to walk on a treadmill at this time. * 12. Inaccurate medication list. * 13. Echocardiogram January 09, 2023-left atrium 4.3 cm LV wall thickness 1.3/1.4 cm LV end-systolic diameter 3.1 cm RV systolic pressure 25 mmHg TAPSE 2.3 IVC normal * 14. BNP level January 29 2350, respiratory panel negative, chest x-ray no pulmonary vascular congestion -[facility] [address] DO Work Phone: [phone] 525-878405-01-2022 History of Present illness Narrative* History so far ; * 1. Hypertension * 2. Hyperlipidemia-on rosuvastatin, triglycerides elevated, recently ezetimibe was added. * 3. Patient reports that he sometimes gets achy muscles with statins. * 4. Product Huntiscan Myoview December 2021-normal perfusion LVEF 73% transient ischemic dilatation 0.92 which is normal no evidence of attenuation artifact * 5. Cardiac catheterization July 2012-LVEDP 0 to 14 mmHg no gradient across the aortic valve LVEF 55 to 60% 30% mid LAD first obtuse marginal branch 70% stenosis small caliber vessel RCA without significant disease medical management recommended * 6. Intolerance to several statins-currently tolerating rosuvastatin 20 mg daily without untoward effects * 7. Ex-smoker, quit about 40 years ago * 8. Pulmonary function testing November 2022-normal diffusion capacity evidence of mild restriction without obvious obstruction no significant bronchodilator response no obvious air trapping or hyperinflation. Diffusion capacity is adjusted for alveolar volume, it is supra normal. * 9. Possible intolerance to MICHELLE inhibitors and/or angiotensin receptor blockers-cough could be related to this or partly related to this * 10. Patient is on albuterol inhaler, he says it does not make any difference in his breathing, if he has underlying reactive airway disease, could bisoprolol be a contributing factor to his shortnessof breath? * 11. Could bisoprolol be causing chronotropic blunting. Patient says his knee is getting a little bit better, but he is very hesitant to walk on a treadmill at this time. * 12. Inaccurate medication list. * 13. Echocardiogram January 09, 2023-left atrium 4.3 cm LV wall thickness 1.3/1.4 cm LV end-systolic diameter 3.1 cm RV systolic pressure 25 mmHg TAPSE 2.3 IVC normal * 14. BNP level January 2023 ,50, respiratory panel negative, chest x-ray no pulmonary vascular congestion * 15 treadmill stress test January 2023-4 minutes 39 seconds, 68% age-predicted maximum heart rate, maximum workload 6.50 METS. * BNP level does not suggest heart failure chronotropic blunting is very significant and may account for some of the shortness of breath. Moreover if patient has a reactive airway disease component, beta-blockers could be exacerbating that. So far I have made multiple changes to medical regimen, patient does not report any improvement in his symptoms of shortness of breath. Patient and family very concerned about the episodes of chest discomfort which clinically to me sound more GI than cardiac, possibly GERD. As far as the cough goes, he probably has postnasal drip, and GERD, may benefit from GI prophylaxis, and antihistamine such as cetirizine on a regular basis, and may be a short course of antibiotics, but I will defer all those decisions to primary MD. * Given that shortness of breath has shown no improvement subjectively with discontinuation of beta-blockers, and given the escalation in blood pressure, we will resume Bystolic 10/6.25 mg daily, says that was the dose that patient was on previously. -[facility] DO Work Phone: [phone]) [phone] History of Present illness Narrative* Patient is new to this provider. Previously saw Dr. Brock. * Per most recent OV note of 08/21/21 : * Mr. Pyle is a 76-year-old male seen back today for follow-up on his history of coronary disease. He also has a history of hypertension. He said some shortness of breath but no real chest pain. Prior heart catheterization that was done back in July 2012 demonstrated mostly moderate range of branch vessel disease that was quite distal. There is no intervention done. Blood pressure appears well controlled today. He has no complaints. Remains physically active without anginal symptoms. * Patient does not report any chest discomfort pressure tightness heaviness palpitations lightheadedness orthopnea PND or lower extremity edema. * Triglycerides were elevated and recently Zetia was added by Dr. Pierre. 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 He said that prior to initiating the isosorbide he would get chest heaviness after exerting himself like walking for close to 3 miles. The symptoms have since subsided. * I reviewed the results of the most recent perfusion imaging study and also his recent blood work. * Reviewed most recent office visit note by Faith Dallas on 03/27/2022. * Laboratory data from July 2022 hemoglobin 18 hematocrit 53 platelets 140 AST and ALT mildly elevated 45 and 61 glucose 155 GFR greater than 60 BUN 16 creatinine 1.02 sodium 137 potassium 4.7 total cholesterol 173 triglycerides 157 LDL 93 hemoglobin A1c 5.6 * Assessment: * 1. Hypertension-at target * 2. Hyperlipidemia-on rosuvastatin, triglycerides elevated, recently ezetimibe was added. * 3. Patient reports that he sometimes gets achy muscles with statins. * 4. [facility] December 2021-normal perfusion LVEF 73% transient ischemic dilatation 0.92 which is normal no evidence of attenuation artifact * 5. Cardiac catheterization July 2012-LVEDP 0 to 14 mmHg no gradient across the aortic valve LVEF 55 to 60% 30% mid LAD first obtuse marginal branch 70% stenosis small caliber vessel RCA without significant disease medical management recommended * Recommendations: * 1. Continue aggressive risk factor modification aiming for LDL 70 or below and triglycerides at or below 150, all the medications are managed by Dr. Pierre, we are only refilling the isosorbide. * 2. Follow-up in 1 year sooner if interval problems arise * 3. Heart healthy lifestyle was encouraged. [facility] [employer] DO Work Phone: [phone] 427-377312-01-2012 History of Present illness Narrative* Mr. Pyle is a 76-year-old male seen back today for follow-up on his history of coronary disease. He also has a history of hypertension. He said some shortness of breath but no real chest pain. Prior heart catheterization that was done back in July 2012 demonstrated mostly moderate range of branch vessel disease that was quite distal. There is no intervention done. Blood pressure appears well controlled today. He has no complaints. Remains physically active without anginal symptoms. * Physical exam: * Neck: No carotid bruits are heard * Lungs: Clear * Heart: Regular rate and rhythm without murmurs or extra sounds * Extremities: No edema * Recommendation is continuation of current medications. No changes were made. He is to return in 6 months for follow-up. [facility] [employer] DO Work Phone: Chief complaint Narrative - ReportedJESSENIA PYLE is being seen for a cardiovascular evaluation of dyspnea.[facility] [employer] DO Work Phone: Chief complaint Narrative - Chet PYLE is being seen for a consultation for GXT.[facility] [employer] DO Work Phone: Evaluation + Plan note Future Appointments Appointment Date:04/26/2023 10:45:00 AM Scheduled Provider:Jesusita SMALL MD Location:[facility] Appointment Type:URO Office Visit [facility] evaluation + Plan note Future Appointments Appointment Date:06/08/2024 10:30:00 AM Scheduled Provider:Jesusita SMALL MD Location:[facility] Appointment Type:URO Office Visit [facility] evaluation + Plan note Future Appointments Appointment Date:06/08/2024 10:30:00 AM Scheduled Provider:Jesusita SMALL MD Location:[facility] Appointment Type:URO Office Visit Diagnostic Tests Pending * Calculi Analysis Urinary 04/01/24 [facility] evaluation + Plan note Future Appointments Appointment Date:07/20/2024 12:15:00 PM Scheduled Provider:Jesusita SMALL MD Location:[facility] Appointment Type:URO Office Visit [facility] evaluation noteNo assessment information available [facility] Work Phone: evaluation note* Diagnosis Low tension glaucoma of left eye, indeterminate stage- Primary Glaucoma suspect of right eye Preglaucoma, unspecified [facility] Diagnosis Low tension glaucoma of left eye, indeterminate stage- Primary [facility] Diagnosis Glaucoma suspect of right eye- Primary Preglaucoma, unspecified [facility]* Diagnosis Primary hypertension (CMS/HCC)- Primary Unspecified essential hypertension Orthostatic hypotension Lightheadedness Dizziness and giddiness [facility] Diagnosis Primary hypertension (CMS/HCC)- Primary Unspecified essential hypertension Type 2 diabetes mellitus with other specified complication, without long-term current use of insulin (CMS/[facility]) Benign prostatic hyperplasia without lower urinary tract symptoms 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) Trochanteric bursitis of left hip Other secondary osteoarthritis of left hip documented in this encounter [facility]* Diagnosis Primary hypertension (CMS/HCC)- Primary Unspecified essential hypertension Type 2 diabetes mellitus with other specified complication, without long-term current use of insulin (CMS/HCC) Pain of left hip Greater trochanteric bursitis of left hip 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) documented in this encounter [facility]* Diagnosis Medicare annual wellness visit, subsequent- Primary ACP (advance care planning) Other specified counseling Type 2 diabetes mellitus with other specified complication, without long-term current use of insulin (CMS/HCC) Benign prostatic hyperplasia without lower urinary tract symptoms 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) Primary hypertension (CMS/HCC) Unspecified essential hypertension Mixed hyperlipidemia (CMS/HCC) Mixed hyperlipidemia Thrombocytopenia (CMS/HCC) Unspecified thrombocytopenia Prostate cancer screening Special screening for malignant neoplasm of prostate Need for vaccination with 20-polyvalent pneumococcal conjugate vaccine documented in this encounter [facility] Present illness Narrative* Patient is accompanied by to the office. * Patient reports that blood pressures tend to be up-and-down, and they are escalating in the mid to late today, sometimes diastolics are in excess of 100. * Reports that he was denied blood donation because of elevated blood pressure * Reviewed laboratory data potassium 5.2. On potassium citrate to prevent kidney stones * says cough is better patient says he still coughing particularly in the morning. Sometimes he has difficulty expectorating, and feels like there was carotid in the back of his throat. No dysphagia. No clear symptoms of GERD. * I reviewed extensive blood pressure logs from home. They are overall suboptimally controlled, but Blas not see readings much in excess of 150 systolic. * Patient reports that primary MD has called in a prescription for losartan. * Patient's cough is multifactorial, and is significantly better of MICHELLE inhibitors and angiotensin receptor blockers. * Patient's heart rate has increased with discontinuation of bisoprolol, but patient says that his shortness of breath is still very concerning to him. * Patient expressed retrosternal chest discomfort on 2 occasions while he was relaxing. No chest discomfort with exercise. * Laboratory data from March 07, 2023 was reviewed. * History so far ; * 1. Hypertension * 2. Hyperlipidemia-on rosuvastatin, triglycerides elevated, recently ezetimibe was added. * 3. Patient reports that he sometimes gets achy muscles with statins. * 4. Lexiscan Myoview December 2021-normal perfusion LVEF 73% transient ischemic dilatation 0.92 which is normal no evidence of attenuation artifact * 5. Cardiac catheterization July 2012-LVEDP 0 to 14 mmHg no gradient across the aortic valve LVEF 55 to 60% 30% mid LAD first obtuse marginal branch 70% stenosis small caliber vessel RCA without significant disease medical management recommended * 6. Intolerance to several statins-currently tolerating rosuvastatin 20 mg daily without untoward effects * 7. Ex-smoker, quit about 40 years ago * 8. Pulmonary function testing November 2022-normal diffusion capacity evidence of mild restriction without obvious obstruction no significant bronchodilator response no obvious air trapping or hyperinflation. Diffusion capacity is adjusted for alveolar volume, it is supra normal. * 9. Possible intolerance to MICHELLE inhibitors and/or angiotensin receptor blockers-cough could be related to this or partly related to this * 10. Patient is on albuterol inhaler, he says it does not make any difference in his breathing, if he has underlying reactive airway disease, could bisoprolol be a contributing factor to his shortnessof breath? * 11. Could bisoprolol be causing chronotropic blunting. Patient says his knee is getting a little bit better, but he is very hesitant to walk on a treadmill at this time. * 12. Inaccurate medication list. * 13. Echocardiogram January 09, 2023-left atrium 4.3 cm LV wall thickness 1.3/1.4 cm LV end-systolic diameter 3.1 cm RV systolic pressure 25 mmHg TAPSE 2.3 IVC normal * 14. BNP level January 2023 ,50, respiratory panel negative, chest x-ray no pulmonary vascular congestion * 15 treadmill stress test January 2023-4 minutes 39 seconds, 68% age-predicted maximum heart rate, maximum workload 6.50 METS. * BNP level does not suggest heart failure chronotropic blunting is very significant and may account for some of the shortness of breath. Moreover if patient has a reactive airway disease component, beta-blockers could be exacerbating that. So far I have made multiple changes to medical regimen, patient does not report any improvement in his symptoms of shortness of breath. Patient and family very concerned about the episodes of chest discomfort which clinically to me sound more GI than cardiac, possibly GERD. As far as the cough goes, he probably has postnasal drip, and GERD, may benefit from GI prophylaxis, and antihistamine such as cetirizine on a regular basis, and may be a short course of antibiotics, but I will defer all those decisions to primary MD. * Given that shortness of breath has shown no improvement subjectively with discontinuation of beta-blockers, and given the escalation in blood pressure, we will resume Bystolic 10/6.25 mg daily, says that was the dose that patient was on previously. * Personally prefer to not use losartan, but we will leave that decision also to primary MD. * Lastly this patient could benefit from GI evaluation possible endoscopy?? * From a cardiology perspective, I suggested that he should stagger his blood pressure medications, take the Bystolic/hydrochlorothiazide around noon, I discontinued Maxide given his hyperkalemia tendency, and the need for potassium citrate supplementation for kidney stones. * I ordered a Product Huntiscan Myoview, he has significant chronotropic blunting hence treadmill perfusion imaging will not be of help. * Follow-up after testing sooner if interval problems arise [facility] [address] DO Work Phone: Hospital course Narrative No data available for this section [facility] Hospital Discharge instructions No data available for this section [facility] Progress note No data available for this section [facility] Summary Purpose Family History No Family History Records FoundUnknown Family Member Name Dates Details Family history of CABG: Fat er(V17.49, Z82.49) Status:Active Family history of malignant neoplasm: Mother(V16.9, Z80.9) Status:Active Unknown Family Member Name Dates Details Family history of CABG: Fath er(V17.49, Z82.49) Status:Active Family history of malignant neoplasm: Mother(V16.9, Z80.9) Status:Active Unknown Family Member Name Dates Details Family history of CABG: Fath er(V17.49, Z82.49) Status:Active Family history of malignant neoplasm: Mother(V16.9, Z80.9) Status:Active Unknown Family Member Name Dates Details Family history of CABG: Fath er(V17.49, Z82.49) Status:Active Family history of malignant neoplasm: Mother(V16.9, Z80.9) Status:Active Unknown Family Member Name Dates Details Family history of CABG: Fath er(V17.49, Z82.49) Status:Active Family history of malignant neoplasm: Mother(V16.9, Z80.9) Status:Active Unknown Family Member Name Dates Details Family history of CABG: Fath er(V17.49, Z82.49) Status:Active Family history of malignant neoplasm: Mother(V16.9, Z80.9) Status:Active Unknown Family Member Name Dates Details Family history of CABG: Fath er(V17.49, Z82.49) Status:Active Family history of malignant neoplasm: Mother(V16.9, Z80.9) Status:Active Unknown Family Member Name Dates Details Family history of CABG: Fath er(V17.49, Z82.49) Status:Active Family history of malignant neoplasm: Mother(V16.9, Z80.9) Status:Active Unknown Family Member Name Dates Details Family history of CABG: Fath er(V17.49, Z82.49) Status:Active Family history of malignant neoplasm: Mother(V16.9, Z80.9) Status:Active Unknown Family Member Name Dates Details Family history of CABG: Fath er(V17.49, Z82.49) Status:Active Family history of malignant neoplasm: Mother(V16.9, Z80.9) Status:Active Unknown Family Member Name Dates Details Family history of CABG: Fath er(V17.49, Z82.49) Status:Active Family history of malignant neoplasm: Mother(V16.9, Z80.9) Status:Active Unknown Family Member Name Dates Details Family history of CABG: Fath er(V17.49, Z82.49) Status:Active Family history of malignant neoplasm: Mother(V16.9, Z80.9) Status:Active Unknown Family Member Name Dates Details Family history of CABG: Fath er(V17.49, Z82.49) Status:Active Family history of malignant neoplasm: Mother(V16.9, Z80.9) Status:Active Unknown Family Member Name Dates Details Family history of CABG: Fath er(V17.49, Z82.49) Status:Active Family history of malignant neoplasm: Mother(V16.9, Z80.9) Status:Active Unknown Family Member Name Dates Details Family history of CABG: Fath er(V17.49, Z82.49) Status:Active Family history of malignant neoplasm: Mother(V16.9, Z80.9) Status:Active Unknown Family Member Name Dates Details Family history of CABG: Fath er(V17.49, Z82.49) Status:Active Family history of malignant neoplasm: Mother(V16.9, Z80.9) Status:Active Unknown Family Member Name Dates Details Family history of CABG: Fath er(V17.49, Z82.49) Status:Active Family history of malignant neoplasm: Mother(V16.9, Z80.9) Status:Active Relationship Condition Age at Onset Recorded Date/[place] father Heart disease Unknown History of coronary artery bypass surgery Unknown Relationship Condition Age at Onset Recorded Date/[place] father Heart disease Unknown History of coronary artery bypass surgery Unknown mother Cerebrovascular accident (CVA) Unknown Advance Directives No Advanced Directives Records Found Advance Directive Response Recorded Date/ Time Advance Directives No May 15, 2017 9:24am Advance Directive Response Recorded Date/ Time Advance Directives No May 15, 2017 8:24am Advance Directive Response Recorded Date/ Time Advance Directives No June 10, 2024 11:51am Chief Complaint JESSENIA PYLE is being seen for a 7 month follow-up of.JESSENIA PYLE is being seen for a 6 month follow-up of.JESSENIA PYLE is being seen for a 4 week follow- up of.JESSENIA PYLE is being seen for a 1 month follow-up of discuss symptoms. JESSENIA PYLE is being seen for stress results. Chief Complaint and Reason for Visit Chief Complaint I10;J45.909;I25.10;E 78.00;R73.01;N20;R97.20;N40.1 See order Chief Complaint See order R05.09 Chief Complaint R05.09 I10 R73.09 E78.00 Chief Complaint j45.909 i25.10 r06.02 Chief Complaint j45.909 i25.10 r06.02 R06.02 R05.9 Chief Complaint j45.909 i25.10 r06.02 R06.02 R05.9 r06.09 Chief Complaint i25.10 r06.02 R06.02 R05.9 r06.09 i10 Chief Complaint kidney stones Chief Complaint kidney stones R73.01 Chief Complaint kidney stones R73.01 elevated b/p Chief Complaint I25.10 I10 E78.5 E78 .1 E11.69 Chief Complaint I25.10 I10 E78.5 E78 .1 E11.69 pain in stomach and back vomiting Chief Complaint I25.10 I10 E78.5 E78 .1 E11.69 pain in stomach and back vomiting n20.0 Chief Complaint n20.0 Kidney stones Chief Complaint Admit Date n20.0 April 01, 2024 11 :26am Kidney stones June 17, 2024 2 :40pm n20.0 June 19, 2024 3 :18pm Chief Complaint Admit Date Kidney stones June 17, 2024 2 :40pm n20.0 June 19, 2024 3 :18pm H02.83 July 16, 2024 7 :31am Prev NOH patient/SOB July 31, 2024 10:37am E78.5 July 31, 2024 10:47am I10 E11.69 E78.2 I25.10 D69.6 N40.0 Severiano sahil 2024 10:34am Reason for Visit Admit Date Essential (primary) hypertension [facility] 2023 10:37am Nonobstructive atherosclerosis of nicholson ry artery July 31, 2024 10:37am Dyspnea on exertion July 31, 2024 10:37am Atypical chest pain July 31, 2024 10:37am Chief Complaint Admit Date Kidney stones June 17, 2024 2 :40pm n20.0 June 19, 2024 3 :18pm H02.83 July 16, 2024 7 :31am Prev NOH patient/SOB July 31, 2024 10:37am E78.5 July 31, 2024 10:47am I10 E11.69 E78.2 I25.10 D69.6 N40.0 Severiano sahil 2024 10:34am Dyspnea, CAD, Chest Pain August 28, 2 025 9:07am Medications Administered Section Inactive Administered Medications - up to 3 most recent administrations Medication Order MAR Action Action Date Dose Rate Site fluorescein-benoxinate 0.25-0.4 % 1 Drop (FLURESS) 1 Drop, BOTH EYES, DIRECTED, Starting on 06/01/22 at 1230, Until 06/02/22 at 0029, Administer for applanation tonometry. In the event of a Fluress shortage, administer [place]-Fluor 1 drop into both eyes as directed for applanation tonometry, [facility] MED ORDERS Given 06/01/2022 12:30 PM EDT 1 Drop PHENYLephrine 2.5 % 1 Drop (AK-DILATE, DONNA-SYNEPHRINE) 1 Drop, BOTH EYES, DIRECTED, Starting on Sat06/01/22 at 1230, Until 06/02/22 at 0029, Administer for dilation PROTECT FROM LIGHT, [facility] CLINIC MED ORDERS Given 06/01/2022 12:30 PM EDT 1 Drop proparacaine 0.5 % 1 Drop (ALCAINE) 1 Drop, BOTH EYES, DIRECTED, Starting on Sat06/01/22 at 1230, Until 06/02/22 at 0029, Administer for pneumo tonometry, tonopen tonometry, or pachymetry. In the event of a proparacaine shortage, administer tetracaine 0.5% ophthalmic drops 1 drop in both eyes as directed for pneumo tonometry, tonopen tonometry, or pachymetry, OPHT CLINIC MED ORDERS Given 06/01/2022 12:30 PM EDT 1 Drop tropicamide 1 % 1 Drop (MYDRIACYL) 1 Drop, BOTH EYES, DIRECTED, Starting on Sat06/01/22 at 1230, Until 06/02/22 at 0029, Administer for dilation, OPHT CLINIC MED ORDERS Given 06/01/2022 12:30 PM EDT 1 Drop Active Administered Medications - up to 3 most recent administrations Medication Order MAR Action Action Date Dose Rate Site fluorescein-benoxinate 0.25-0.4 % 1 Drop (FLURESS) 1 Drop, RIGHT EYE, DIRECTED, Starting on Sat08/31/22 at 1400, Until 09/01/22 at 0159, Administer for applanation tonometry. In the event of a Fluress shortage, administer [place]-Fluor 1 drop into the right eye as directed for applanation tonometry Given 08/31/2022 2:00 PM EST 1 Drop proparacaine 0.5 % 1 Drop (ALCAINE) 1 Drop, RIGHT EYE, DIRECTED, Starting on 08/31/22 at 1400, Until 09/01/22 at 0159, Administer for pneumo tonometry, tonopen tonometry, or pachymetry. In the event of a proparacaine shortage, administer tetracaine 0.5% ophthalmic drops 1 drop in the right eye as directed for pneumo tonometry, tonopen tonometry, or pachymetry Given 08/31/2022 2:00 PM EST 1 Drop Additional Source Comments (unrecognized sect ion and content) No Status Records FoundNo Status Records FoundNo Status Records FoundNo Status Records FoundNo Status Records FoundNo Status Records FoundNo Status Records FoundNo Status Records FoundNo Status Records FoundNo Status Records FoundNo Status Records FoundNo Status Records FoundNo Status Records FoundNo Status Records FoundNo Status Records Found INFORMATION SOURCE (unrecogn ized section and content) DATE CREATED AUTHOR 03/20/2021 [facility] DATE CREATED AUTHOR AUTHOR'S ORGANIZ ATION 10/20/2021 [facility] dical Specialist DATE CREATED AUTHOR AUTHOR'S ORGANIZ ATION 08/02/2022 [facility] DATE CREATED AUTHOR AUTHOR'S ORGANIZ ATION 03/22/2023 [facility] DATE CREATED AUTHOR AUTHOR'S ORGANIZ ATION 03/22/2023 [facility] DATE CREATED AUTHOR AUTHOR'S ORGANIZ ATION 04/12/2023 [facility] DATE CREATED AUTHOR AUTHOR'S ORGANIZ ATION 03/28[facility]2024 [facility] DATE CREATED AUTHOR AUTHOR'S ORGANIZ ATION 04/09/2024 [facility] DATE CREATED AUTHOR AUTHOR'S ORGANIZ ATION 06/24/2024 [facility] DATE CREATED AUTHOR AUTHOR'S ORGANIZ ATION 08/28/2024 [facility] dical Specialists [facility] DATE CREATED AUTHOR AUTHOR'S ORGANIZ ATION 08/30/2024 [facility] DATE CREATED AUTHOR AUTHOR'S ORGANIZ ATION 08/31/2024 [facility] Care Team (unrecognized sect ion and content) Team Status: Inactive Member Role Status Dates Chris Pierre DO Primary Care Provider, Attending Andrzej rivera Active Team Status: Inactive Member Role Status Dates Chris Pierre DO Primary Care Provider Active Jesusita Small MD Attending Provider Active Team Status: Active Member Role Status Dates Chris Pierre DO Primary Care Provider Active Team Status: Inactive Member Role Status Dates Chris Pierre DO Primary Care Provider, Other Provi sadia Active Eduardo Brock , DO Attending Provider Active Jesusita Small MD Referring Provider Active Team Status: Inactive Member Role Status Dates Chris Pierre DO Primary Care Provider Active Shanthi Lancaster MD Attending Provider Active Cover Creaser Relationship Specialty Start Date End Date Chris Pierre DO [address] [place] [address] PCP - General Internal Medicine 02/06/23 Team Status: Inactive Member Role Status Dates Chris Pierre DO Primary Care Provider Active Start: July 09, 2023 End: July 09, 2023 Jesusita Small MD Attending Provider Active St art: July 09, 2023 End: July 09, 2023 Team Status: Inactive Member Role Status Dates Chris Pierre DO Primary Care Provide r, Attending Provider Active Start: August 02, 2023 End: August 02, 2023 Team Status: Inactive Member Role Status Dates Chris Pierre DO Primary Care Provider Active Start: September 29, 2023 End: September 29, 2023 Jesusita Chavarria DO Emergency Provider Active St art: September 29, 2023 End: September 29, 2023 Team Status: Inactive Member Role Status Dates Chris Pierre DO Primary Care Provider Active Start: February 04, 2024 End: February 04, 2024 Shanthi Lancaster MD Referring Provider Active Star t: February 04, 2024 End: February 04, 2024 Spencer Zarate , RN MSN ANP-C Attending Provider Act deshawn Start: February 04, 2024 End: February 04, 2024 Team Status: Inactive Member Role Status Dates Chris Pierre DO Primary Care Provider Active Start: February 20, 2024 End: February 20, 2024 Roberto Olivares DO Emergency Provider Active Sta rt: February 20, 2024 End: February 20, 2024 Team Status: Inactive Member Role Status Dates Chris Pierre DO Primary Care Provider Active Start: April 01, 2024 End: April 01, 2024 Jesusita Small MD Attending Provider Active St art: April 01, 2024 End: April 01, 2024 Cover Creaser Relationship Specialty Start Date End Date Chris Pierre DO [address] [place] [address] PCP - General Internal Medicine 02/06/23 Cover Creaser Relationship Specialty Start Date End Date Chris Pierre DO [address] [place] [address] PCP - General Internal Medicine 02/06/23 Team Status: Active Member Role Status Dates Chris Pierre DO Primary Care Provider Active Start: April 02, 2024 Foster Martin DO Attending Provider Active Sta rt: April 02, 2024 Team Status: Inactive Member Role Status Dates Chris Pierre DO Primary Care Provider Active Start: June 17, 2024 End: June 17, 2024 Jesusita Small MD Attending Provider Active St art: June 17, 2024 End: June 17, 2024 Team Status: Inactive Member Role Status Dates Chris Pierre DO Primary Care Provider Active Start: June 19, 2024 End: June 19, 2024 Jesusita Small MD Attending Provider Active St art: June 19, 2024 End: June 19, 2024 Cover Creaser Relationship Specialty Start Date End Date Chris Pierre DO [address] [place] [address] PCP - General Internal Medicine 02/06/23 Cover Creaser Relationship Specialty Start Date End Date Chris Pierre DO [address] [place] [address] PCP - General Internal Medicine 02/06/23 Cover Creaser Relationship Specialty Start Date End Date Chris Pierre DO [address] [place] [address] PCP - General Internal Medicine 02/06/23 Cover Creaser Relationship Specialty Start Date End Date Chris Pierre DO [address] [place] [address] PCP - General Internal Medicine 02/06/23 Cover Creaser Relationship Specialty Start Date End Date Chris Pierre DO [address] [place] [address] PCP - General Internal Medicine 02/06/23 Team Status: Inactive Member Role Status Dates Chris Pierre DO Primary Care Provider Active Start: July 16, 2024 End: July 16, 2024 Jamison Lauren MD Attending Provider Active Star t: July 16, 2024 End: July 16, 2024 Team Status: Inactive Member Role Status Dates Chris Pierre DO Primary Care Provider Active Start: July 31, 2024 End: July 31, 2024 Misha Chuahan MD Attending Provider Activ e Start: July 31, 2024 End: July 31, 2024 Team Status: Inactive Member Role Status Dates Chris Pierre DO Primary Care Provide r, Attending Provider Active Start: August 18, 2024 End: August 18, 2024 Cover Creaser Relationship Specialty Start Date End Date Chris Pierre DO [address] [place] [address] PCP - General Internal Medicine 02/06/23 Cover Creaser Relationship Specialty Start Date End Date Chris Pierre DO [address] [place] [address] PCP - General Internal Medicine 6/28/23 Team Status: Inactive Member Role Status Dates Chris Pierre , Primary Care Provide r, Referring Provider Active Start: August 28, 2024 End: August 28, 2024 Misha Chauhan MD Attending Provider Active Start: August 28, 2024 End: August 28, 2024 Goals (unrecognized section and content) Goals may be documented in a n alternate section Source Comments (unrecognize d section and content) In the event this informatio n is protected by the Federal Confidentiality of Alcohol and Drug Abuse Patient Records regulations: The Federal rules restrict any use of the information to criminally investigate or prosecute any alcohol or drug abuse patient.[facility] Center[facility] the event this information is protected by the Federal Confidentiality of Alcohol and Drug Abuse Patient Records regulations: The Federal rules restrict any use of the information to criminally investigate or prosecute any alcohol or drug abuse patient.[facility] CenterIn the event this information is protected by the Federal Confidentiality of Alcohol and Drug Abuse Patient Records regulations: The Federal rules restrict any use of the information to criminally investigate or prosecute any alcohol or drug abuse patient.[facility] CenterIn the event this information is protected by the Federal Confidentiality of Alcohol and Drug Abuse Patient Records regulations: The Federal rules restrict any use of the information to criminally investigate or prosecute any alcohol or drug abuse patient.[facility] CenterIn the event this information is protected by the Federal Confidentiality of Alcohol and Drug Abuse Patient Records regulations: The Federal rules restrict any use of the information to criminally investigate or prosecute any alcohol or drug abuse patient.[facility] CenterIn the event this information is protected by the Federal Confidentiality of Alcohol and Drug Abuse Patient Records regulations: The Federal rules restrict any use of the information to criminally investigate or prosecute any alcohol or drug abuse patient.[facility] CenterIn the event this information is protected by the Federal Confidentiality of Alcohol and Drug Abuse Patient Records regulations: The Federal rules restrict any use of the information to criminally investigate or prosecute any alcohol or drug abuse patient.[facility] Reason for Visit (unrecogniz ed section and content) Reason Comments 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 Patient states that within the last week his BP has been low. He states that when he stands up he feels dizzy. It has been a little better in the afternoon. Reason Comments Hypertension Pt is here to check his BP. He has been checking it at home and he said it is noticing it is going up. Home checks were 168/110. He takes the amlodipine and this will take it down to 140/90's. He is also having pain in his left hip. He had an injection in the past and this has helped. Reason Comments Hip Pain Pt is here for left pain pain. He also has right ear pain. He has been using ear drops. Reason Comments 6 month f/u and medicare wellness visit Pt is here for 6 month visit and Medicare Wellness exam. FOR RECORDS PERTAINING TO PATIENTS WHO ARE OR HAVE BEEN ENROLLED IN A CHEMICAL DEPENDENCY/SUBSTANCEABUSE PROGRAM, SOME INFORMATION MAY BE OMITTED. This clinical summary was aggregated from multiple sources. Caution should be exercised in using it in the provision of clinical care. This summary normalizes information from multiple sources, and as a consequence, information in this document may materially change the coding, format and clinical context of patient data. In addition, data may be omitted in some cases. CLINICAL DECISIONS SHOULD BE BASED ON THE PRIMARY CLINICAL RECORDS. [employer] provides no warranty or guarantee of the accuracy or completeness of information in this document.
== END 2024-08-31 10:58 | disposition home or self-care (01) ==
LOC: RAD 11:00
PROVIDERS: PCP Internal Medicine; Visit Provider Urology
DX: N20.0 Calculus of kidney (principal)
CPT/HCPCS: 74018

== ENCOUNTER 2025-07-04 09:09 | Emergency (ER) | payer MEDICARE, SELFPAY ==
--- OUTSIDE RECORDS SUMMARY | 2025-06-23 02:29 | XMS_ITS | Continuity of Care Document ---
Author Organization [facility] Address [address] [place] [address] Phone Care Team Providers Care Tornado Chaser Name Role Phone Misha Chauhan MD Attending Provider Rian Chappell MD Primary Care Provider [phone] Fibroscan, Temporary Attending Provider Unavaila ble Care Teams Patient Care Team Team Status: Active Member Role/Relationship Status Dates Rian Chappell MD Primary Care Provider Active Visit Care Team Team Status: Inactive Member Role/Relationship Status Dates Misha Chauhan MD Attending Provider Activ e Start: April 05, 2025 End: April 05, 2025Lazara Rod Care ProviderActiveStart: April 05, 2025 End: April 05, 2025 Patient Care Team Team Status: Inactive Member Role/Relationship Status Dates Rian Chappell MD Primary Care Provider Active St art: June 23, 2025 End: June 23, 2025Temporary FibroscanAttending ProviderActiveStart: June 23, 2025 End: June 23, 2025 Chief Complaint and Reason for Visit Chief Complaint Admit Date 6 months April 05, 2025 10 :32am Fatty Liver June 23, 2025 6:31am Reason for Visit Admit Date Essential (primary) hypertension April 05, 2025 10:32am Nonobstructive atherosclerosis of nicholson ry artery April 05, 2025 10:32am Allergies, Adverse Reactions, Alerts Allergen Type Severity Reaction Last Updated Verified Status Fvvbnmb-OSK-DmQ Reductase Inhibitor Adverse Reaction Mild Joint Pain April 05, 2025 9:38am Yes Active Social History Smoking Status Status Start Date End Date Date of Observa tion Ex-smoker (finding) September 01, 2024 10:11am Observation Status Observation Response Date of Response Legal Sex [facility] (finding) [facility] [place] 1944 Family History Relationship Condition Age at Onset Recorded Date/[place] father Heart disease Unknown History of coronary artery bypass surgeryUnknownmotherCerebrovascular accident (CVA)Unknown Problems Active Problems Problem Diagnosis/Recorded Date Onset Date Stat us Back pain August 25, 2017 7:19pm Unknown Ac tive Essential (primary) hypertension July 31, 2024 1 :39pm Unknown Active Nonobstructive atheroscleros is of coronary artery July 31, 2024 1:39pm Unknown Active Inactive/Resolved Problems Problem Diagnosis/Recorded Date Onset Date Stat us [place] (dyspnea on exertion) September 29, 2023 2:18am U nknown Resolved Kidney stones February 20, 2024 3:29pm Unknown Reso lved Hypertension September 29, 2023 2:18am Unknown R esolved Medications Medication Status Dose Units Route Directions Qty Days Refills S tart Date Stop Date End Date Reason(s) Instructions Adherence Amlodipine 5 mg tablet Discontinued 5 MG PO Desire y 30 0br2024 12:00amMarch 2024 11:47amOlmesartan 20 mg tablet Qtyjkkakpled26ESWASsioy86688Adwzvwxi 2024 12:00amApril 2024 9:00am Valsartan 160 mg clgwdoVgudbb001QFXLLpvrb34408Edqmvr 2024 10:07amUnknown Bisoprolol Fumarate 10 mg liqkhoKtqpjyvhsthx42WOEKAqdfoWxnieuvg 2023 12:00amDecember 2023 11:03amRosuvastatin 40 mg gjnvqyHygyxu96VQYXEjjtl at bedtimeFebruary 2023 12:00amUnknownEzetimibe 10 mg sbvelvIvkdeg35IXFUWlxfa September 29, 2023 12:00amUnknownSemaglutide (Ozempic) 1 mg/dose (4 mg/3 mL) pen tmcpsetiHttgzvysvpts5PKWTILDEazqcx weekFebruary 2023 12:00amDecember 2023 11:03amTamsulosin 0.4 mg capsuleActive0.4MGPOBedtimeFebruary 2023 12:00amUnknownFluticasone Propionate (24 Hour Allergy Relief) 50 mcg/actuation spray,dqfriklerjKeumeoqoannv9LIBSDMFYGFUEPMITkrsa as needed for allergic symptomsFebruary 2023 12:00amJuly 31, 2024 11:02am administer into each vtgbzcmRenejibg-Kqd-Fb-Lycopen-Lutein (Centrum Silver) 0.4 mg-300 mcg- 250 mcg wftovlRuxgan4HPGWSSekvzZqhtfpoo 2023 12:00amUnknown Doxazosin 4 mg otacnvBqpwic8CUNJQotrnifLvpvagss 2023 12:00amUnknown Semaglutide (Ozempic) 1 mg/dose (4 mg/3 mL) pen szuulqkpFrqrlzgrltks2ZGZGKCRZ every weekJuly 31, 2024 11:02amJanuary 2024 9:52amSemaglutide (Ozempic) 2 mg/dose (8 mg/3 mL) pen hoxwxsebIyklpy8EDEBBYQHpxqbk weekJanuary 2024 12:00amUnknownMetoprolol Succinate 25 mg tablet extended release 24 llBrufuxyfimjb71CXCEAwbvc morningJanuary 2024 12:00amMarch 2024 11:48amAspirin (Aspirin Childrens) 81 mg tablet,eefdnjfcYjwoyr37JJYQLgbebSfjmrsl 2024 12:00amUnknownMetoprolol Succinate 25 mg tablet extended release 24 nhBjoewlenppii04DDQLZzgag eveningTri[facility] 2024 11:47amMay 2024 9:24am Pravastatin 40 mg TfwvpgYzaprazmshnr37RLDEWohxaZiepvzv 2017 12:00am September 29, 2023 12:44amBisoprolol-Hydrochlorothiazide 10-6.25 tablet Kpdueicyirxo25XXPMFadxgZqrgjxh 2017 12:00amFebruary 2023 12:43am Isosorbide Mononitrate 30 MG tablet extended release 24 ulSgitbqyojuvu90NLOY DailyJanuary 2017 12:00amDecember 2023 11:01amNiacin 500 MG tablet extended release 24 vrFrnpcxwwnjgo562QOPAIzrobUaulqlu 2017 12:00amFebruary 2023 12:45amAmlodipine 5 MG uzzrpyAlvyyafqihay6DVTWSaftlBerobft 2017 12:00amFebruary 2024 10:30amAspirin (Aspir-81) 81 mg Tablet,Delayed Release (Dr/Ec)Xpbkamzjkeds49NDZERsdsjPfzjdwk 2017 12:00amJanuary 2024 10:03amLisinopril 10 MG bdmjxeNwfnujhyrkca16YBCHKypgzUbhnozm 2017 12:00amFebruary 2023 12:45amPotassium Citrate 15 MEQ tablet extended hyysuzrXhrsng18BHYFHBilio dailyJanuary 2017 12:00amUnknownCyclobenzaprine 10 mg kzwujuEmarpgormzky57HZGUYkzjp times daily as needed for muscle otkje679 Kanika 2017 12:00amFebruary 2023 12:46amIbuprofen 800 mg tablet Mhkzjeaeekwh520GTISZ1O as needed for eopw806Tayjxys 2017 7:19pmFebruary 2023 12:45amCephalexin 500 mg vzjgxcgHiwvdvrxcldh296MFGVObejg erbnx49833 February 19, 2024 11:00pmDecember 2023 11:02amAmlodipine-Olmesartan 5-20 mg rlhnpiUuzjiqhcnbyf7ZTFTFDiqcc83323Nxyirlgl 2024 12:00amFebruary 2024 8:44amValsartan 160 mg cebugiNolcnjljfypf237VSYKMbjtp23298Bvbko 2024 11:00pmMay 2024 10:04amValsartan 160 mg szdcflUumnnutzijvg207WDIYTaxym8073 0December 22, 2024 10:04amMay 2024 7:10amValsartan 160 mg tabletDiscontinued 560LMFQYsypa82836Ibe 2024 7:10amAugust 2024 10:07am Immunizations Immunization Event Date Not Given Reason Dose Number Project Controls Scheduler Lot Number Reason(s) Given Vaccine Information Statement (VIS) Detail Administration Location COVID-19 mRNA, Comirnaty (Pfizer) September 17, 2020 COVID-19 mRNA, Comirnaty (Pfizer)October 02OVID19 mRNA, Comirnaty (Pfizer)October 07OVID mRNA, Comirnaty (Pfizer)May 19, 2021 COVID-19 Comirnaty (Pfizer) Tri-Sucrose 12+December 23OVI mRNA Bivalent Booster (Pfizer)May 11OVID-19 (PFIZER) 12Y and older June 07, 2023Influenza, trivalentSeptember 2023 Procedures Procedure Date Performed Status Fibroscan (Not Applicable) June 23 7:30am completed Vital Signs Vital Reading Result Reference Range Collection Date/Time Height 74 [in_i] April 05, 2025 9:26hkVltsbj55.80 kgAugust 2024 9:44amHeart Rate84 /min 60-100Augus2024 9:44amRespiratory rate18 /jes04-06Bjqfed 2024 9:44amOxygen saturation by Pulse jckgioxr72 %95-100Augus2024 9:44amBP Nolbedxu608 mm[Hg]100-140Augus2024 9:44amBP Gtyeajdzt49 mm[Hg]60-100 April 05, 2025 9:44amBMI (Body Mass Index)26.8 kg/e6Hodpwx2024 9:44am Advance Directives Advance Directive Response Recorded Date/ Time Advance Directives No June 10, 2024 11:51am Insurance Providers Guarantor Rian Cline Address [address] [facility] [id number] Info.Home Phone: Payer Group Member ID Coverage Type Subscriber Relationship to Subscriber Effective Date Expiration Date Carlos FUENTES Retired Id: [id number] Miller Id: [id number] [address] [facility] [id number] Home Phone: Email: [email or web address] Encounters Encounter Location(s) Arrival/Admit Date Discharge/Departure Date Discharge/Departure Disposition Provider(s) Departed Physician/ Provider Office Visit -[facility] Cardiology April 05, 2025 10:32am April 05, 2025 11:06am Discharged to home care or self care (routine discharge) Misha Chauhan MD Departed Clinical -[facility] June 23, 2025 6:31am June 23, 2025 7:15am Discharged to home care or self care (routine discharge) Temporary Fibroscan Recent Diagnosis Onset Date Admit Date Essential (primary) hypertension Unknown April 05, 2025 10:32am Nonobstructive atheroscleros is of coronary artery Unknown April 05, 2025 10:32am Assessments Diagnosis Onset Date Resolution Status Admit Date Essential (primary) hypertension acuteAugus2024 10:32amNonobstructive atherosclerosis of [facility] Plan of Treatment Author Misha Chauhan [facility] 2024 2:38pmAssessment: # Nonobstructive coronary artery disease in 2011 ??? no angina. # HTN ??? Controlled on current regimen. Of note, MICHELLE inhibitor's caused cough in the past. # Other: HLD, kidney stones, BPH. [facility] July 31 12-30% mid LAD, 70% OM1, RCA small caliber without significant disease, EF 55-60%. Lexiscan stress MPI December 2021 ??? normal perfusion, TID 0.9, EF 73%. PFT 11/23/2022 ??? mild restriction, normal diffusion capacity, no obstruction or bronchodilator response. Echo 01/09/2023 ??? EF 60-65%, mild LVH, G1DD, normal LV size, mildly dilated LA, normal RVSP. Treadmill stress test January 2023 ??? Nondiagnostic study as patient only exercised for 4 minutes, submaximal effort, only achieved 68% predicted maximum heart rate. Lexiscan stress MPI 04/10/2023 ??? normal MPI, no ischemia or infarction, EF 77%. CT chest 02/15/23 - Mild lung scarring. No acute cardiopulmonary process is seen. [facility] 09/01/24 - Normal pulmonary artery mean pressure. No evidence of pulmonary hypertension. Normal CVP. Normal cardiac output. Normal LV filling pressures. [facility] 09/01/24 - Nonobstructive coronary artery disease with 40-50% OM-1 stenosis and 20-30% stenosis of the mid-distal LAD. This appears stable compared to [facility] in Jul 2012. Normal LV function, EF 60-65%. Plan: -Nonobstructive CAD: Continue aspirin, Crestor and ezetimibe. -BP: Continue Valsartan 160 mg daily at night. - There are brief episodes which occur in the afternoon, in which BP goes down to the 100s, are most likely not 2/2 Valsartan however more like dysautonomia. Discussed with patient whom agrees. Conservative management. -Follow up with MABEL Baer in 6 months, or sooner if needed. Future Tests Future scheduled test information is unavailable Pending Tests Pending diagnostic test information is unavailable Future Visits Future appointment information is unavailable Future Procedures Future procedure information is unavailable Future Medications Future medication information is unavailable Patient Instructions Patient instructions are unavailable Goals Acute Goals Author Authored Date Experience reduced anxiety * Identifies current stressors * Develops effective coping behaviors * [facility] 7:28amRemain free of complications [facility] 2024 7:28amUnderstand preop/postop care/sensations * Verbalizes understanding of surgical procedure * Verbalizes understanding of sensations following surgery * Verbalizes understanding of [facility] 2024 7:28amReport pain at tolerable level * Uses pain scale appropriately * Identify options for pain control - Analgesics - Narcotics - Non-medication measuresP[facility] 2024 7:28amAbsence of imbalanced fluid volume s/s [facility] 2024 7:28amAbsence of physical injury [facility] 2024 7:28amAbsence of surgical site infection [facility] 2024 7:28am
--- OUTSIDE RECORDS SUMMARY | 2025-06-23 13:30 | XMS_ITS | Encounter Summary ---
Author Organization [facility] Address [address] [facility] [place] [address] Care Team Providers Care Reconnaissance Crewmember Name Role Phone Rian Chappell MD Primary Care Provider [phone] Reason for Visit * Imaging (Routine) - ClosedSpecialtyDiagnoses / ProceduresReferred By Contact Referred To ContactRadiology Diagnoses Encounter for screening for lung cancer Procedures CT lung screening low dose Spencer Ferguson, FISHING GEAR MECHANIC [address] [facility] [address] [place] [address] Phone: tel: fax: [facility] [address] [place] [address] Phone: tel: fax: Referral IDStatusReasonStart DateExpiration DateVisits RequestedVisits [id number] Encounter Details DateTypeDepartmentCare Team (Latest Contact Info)Kdprgsakcrk76/12/2025 1:30 PM ESTAncillary Procedure [facility] [address] [place] [place] [address] Encounter for screening for lung cancer Social History Tobacco UseTypesPacks/DayYears UsedDateSmoking Tobacco: FormerCigarettes0.315 08/12/1954 - 08/12/1969Passive Smoke Exposure: NeverSmokeless Tobacco: Never Alcohol UseStandard Drinks/WeekCommentsYes4 (1 standard drink = 0.6 oz pure alcohol)Caffeine: iced tea occasionallyAUDIT-CAnswerDate RecordedQ1: How often do you have a drink containing alcohol?4 or more times a week02/12/2024Q2: How many drinks containing alcohol do you have on a typical day when you are drinking?1 or Q3: How often do you have six or more drinks on one occasion?Never02/12/2024HQ-2AnswerDate RecordedPatient Health Questionnaire-2 [id number] and Gender InformationValueDate RecordedSex Assigned at BirthNot on fileLegal YpsOndf8810/24/2022 6:54 PM EDTGender IdentityNot on file Sexual OrientationNot on fileOccupationIndustryJob Start DateJob End DateRetired Not on fileNot on fileNot on filedocumented as of this encounter Plan of Treatment DateTypeDepartmentCare Team (Latest Contact Info)Zpaxgugynlp88/17/2025 4:00 PM ESTOffice Visit [facility] [address] [place] [address] 09/02/2025 10:00 AM ESTOffice Visit [facility] [address] [place] [address] documented as of this encounter Procedures Procedure NamePriorityDate/TimeAssociated DiagnosisCommentsCT LUNG SCREENING LOW IZMRGclxoon86/12/2025 2:19 PM EST Encounter for screening for lung cancer documented in this encounter Results * CT lung screening low dose (06/23/2025 2:19 PM EST)Anatomical RegionLaterality ModalityLungComputed TomographySpecimen (Source)Anatomical Location / LateralityCollection Method / VolumeCollection TimeReceived Time06/25/2025 1:44 PM EST Impressions 06/25/2025 1:47 PM EST Lung-RADS: LUNGRADS 1 - Negative Follow-Up Recommendation: LDCT 1 Year ELECTRONICALLY SIGNED BY: Simeon Melendez MD Narrative 06/25/2025 1:47 PM EST HISTORY: Smoking history. TECHNIQUE: ??Spiral low dose CT acquisition of the chest from the thoracic inlet to the upper abdomen without contrast for lung screening. All CT scans at this facility use dose modulation, iterative reconstruction, and/or weight based dosing when appropriate to reduce radiation dose to as low as reasonably achievable. COMPARISON: Prior CT from 2023 and 2022. RESULT: Lung parenchyma and pleura: Central airways grossly patent. No consolidative opacity. Areas of probable scarring/atelectasis, especially of the right lung, chronic, unchanged. Pleural calcifications.Granulomatous calcifications. No suspicious nodules. No pleural effusion or pneumothorax. Thoracic inlet, heart, and mediastinum: Visualized thyroid unremarkable. No axillary, mediastinal, or hilar lymphadenopathy. Calcified lymph nodes left hilar region. Mild calcifications of the aorta,without aneurysm. Normal pulmonary size artery. Normal heart size. Diffuse coronary calcifications and/or stents. No pericardial effusion or thickening. Esophagus nondilated. Bones: ??No acute osseous findings. No destructive osseous lesions. Degenerative changes. Soft tissues: Unremarkable. Upper abdomen: ??No acute abnormality in the imaged upper abdomen. Chronic findings similar to prior. Procedure Note Simeon Melendez MD - 06/25/2025 HISTORY: Smoking history. TECHNIQUE: Spiral low dose CT acquisition of the chest from the thoracicinlet to the upper abdomen without contrast for lung screening. All CT scans at this facility use dose modulation, iterativereconstruction, and/or weight based dosing when appropriate to reduceradiation dose to as low as reasonably achievable. COMPARISON: Prior CT from 2023 and 2022. RESULT: Lung parenchyma and pleura: Central airways grossly patent. Noconsolidative opacity. Areas of probable scarring/atelectasis, especiallyof the right lung, chronic, unchanged. Pleural calcifications.Granulomatous calcifications. No suspicious nodules. No pleural effusionor pneumothorax. Thoracic inlet, heart, and mediastinum: Visualized thyroid unremarkable.No axillary, mediastinal, or hilar lymphadenopathy. Calcified lymph nodesleft hilar region. Mild calcifications of the aorta, without aneurysm.Normal pulmonary size artery. Normal heart size. Diffuse coronarycalcifications and/or stents. No pericardial effusion or thickening.Esophagus nondilated. Bones: No acute osseous findings. No destructive osseous lesions.Degenerative changes. Soft tissues: Unremarkable. Upper abdomen: No acute abnormality in the imaged upper abdomen. Chronicfindings similar to prior. IMPRESSION: Lung-RADS: LUNGRADS 1 - Negative Follow-Up Recommendation: LDCT 1 Year ELECTRONICALLY SIGNED BY: Simeon Melendez MD Authorizing ProviderResult TypeResult StatusMicmorenita Ferguson NPIMG CT PROCEDURES Final Result documented in this encounter Visit Diagnoses Diagnosis Encounter for screening for lung cancer documented in this encounter Additional Health Concerns AssessmentNoted TimePHQ-9 Depression Total Score: 6:27 PM EST documented as of this encounter Care Teams Team MemberRelationshipSpecialtyStart DateEnd Date Rian Chappell MD [address] [place] [address] PCP - GeneralInternal Medicine04/21/25documented as of this encounter
--- OUTSIDE RECORDS SUMMARY | 2025-06-25 10:00 | XMS_ITS | Encounter Summary ---
Author Organization [facility] Address [address] [place] [address] Care Team Providers Care Floor Scrubber Name Role Phone Rian Chappell MD Primary Care Provider [phone] Reason for Visit * Rehabilitation - Outpatient (Routine) - ClosedSpecialtyDiagnoses / Procedures Referred By ContactReferred To ContactPhysical Therapy Diagnoses Bilateral low back pain without sciatica, unspecified chronicity DJD (degenerative joint disease), lumbosacral Spondylolisthesis at L4-L5 level Procedures ME OFFICE/OUTPATIENT [facility] MDM 60 MINUTES Spencer Ferguson, MABEL [address] [facility] [address] [place] [address] Phone: tel: fax: [facility] [address] [place] [address] Phone: tel: fax: Referral IDStatusReasonStart DateExpiration DateVisits RequestedVisits [id number] Consult and Treat / Encounter Details DateTypeDepartmentCare Team (Latest Contact Info)Hjqrvlbrowz25/14/2025 10:00 AM ESTEvaluation [facility] [address] [facility] [address] [place] [phone] Kamilah Monroe, PT Bilateral low back pain without sciatica, unspecified chronicity (Primary Dx); DJD (degenerative joint disease), lumbosacral; Spondylolisthesis at L4-L5 level Social History Tobacco UseTypesPacks/DayYears UsedDateSmoking Tobacco: FormerCigarettes0.315 [...] drinks on one occasion?Never02/12/2024HQ-2AnswerDate RecordedPatient Health Questionnaire-2 [id number] and Gender InformationValueDate RecordedSex Assigned at BirthNot on fileLegal VcxMqel4510/24/2022 6:54 PM EDTGender IdentityNot on file Sexual OrientationNot on fileOccupationIndustryJob Start DateJob End DateRetired Not on fileNot on fileNot on filedocumented as of this encounter Progress Notes * Kamilah Monroe, PT - 06/25/2025 10:00 AM EST Images from the original note were not included. Physical Therapy Evaluation Visit Patient Name: Rian Larkin Today's Date: 06/25/2025 Encounter Diagnoses Name Primary? Bilateral low back pain without sciatica, unspecified chronicity Yes DJD (degenerative joint disease), lumbosacral Spondylolisthesis at L4-L5 level Visit number: 1 Timed Code Treatment Minutes: 45 minutes Total Treatment Time: 55 minutes Time In: 0958 Time Out: 1056 History: Pt states right low back has been bothering him for about 6 months. Pt states pain is not constant. Will come and go based on activity. Pt state he also has some pain in left low back which just recently started. Pt states he has never had back problems. States he has never had any problems with back pain. States he is concerned that pain may be coming from something else. Has a history of kidney stones and recent was told there was an issue with his liver function. Precautions: [place] Subjective: low back pain Pain: 0-8/10 Objective: PT Evaluation (06/25/2025) LUMBAR SPINE AROM: trunk ROM is WFL with pain only noted at end range left SB; pt with approx 20 degrees of bilateral hip IR ROM Joint play: hypermobility lower lumbar region Strength: core strength is good/fair; bilateral hip strength 4/5 Muscle length: tightness bilateral HS Palpation: min to mod tenderness left lower lumbar region Special Test: negative slump and SLR bilateral Neurological: Reflexes: 2 bilateral patellar Myotomes: intact Dermatomes: intact Special Test: negative clonus Treatment: Education: HEP education with demonstration, Educated on Eval Findings and POC Manual Therapy: (12 minutes) Passive ROM, Joint mobilization, Soft Tissue Mobilization, Myofascial Release, Muscle Energy Technique, Neural Mobilization, Myofascial Cupping, Dry Needling, IASTM, and Scar mobilization as needed. Manual lumbar distraction in supine with use of danish ball. Therapeutic Exercise: (12 minutes) Strength, Endurance, Flexibility, ROM, HEP, Neural Mobilization,Power, and Core Stability as needed. Pt performed and instructed in home program this date; writteninstructions and pictures issued with good pt understanding. Therapeutic Activity: Exercises to improve dynamic activities, functional tasks, functional mobility to return to prior activity level as needed. Neuromuscular re-education: Balance Training, Muscle Facilitation, Dynamic Stability, Core Stabilization, and Blood Flow Restriction Training (BFRT) as needed. Modalities: Heat, Ice, Electrical Stimulation, Ultrasound, Cervical Mechanical Traction, Lumbar Mechanical Traction, Iontophoresis, and Fluidotherapy as needed. Assessment: Pt is 80 y/o male with complaints of right and left low back pain. Pt with increase right low back pain at end range left SB. Moderate tenderness left lumbar paraspinals. Mild pain with central PA pressure to L4 region. Pt instructed in flexion based exercises for home program and will benefit from further PT. Outcome Measure: Back Index: 50 Rehab Diagnosis: low back pain, decrease strength and ROM Short Term Goal: To be met in 2 weeks Goal 1: Pt to be instructed in home exercise program. Detention Goals: To be met in 10 weeks Goal 1: Pt to report independence and compliance with home program. Goal 2: Pt to report pain no greater than 3/10 with function tasks, ADL's, and rolling over in bed. Goal 3: Pt to score no greater than 1/50 on Back Index indicating improved QOL. Goal 4: Pt to demo good core strength for improved lumbar stability. Goal 5: Pt to achieve 4+/5 strength bilateral hips to assist with functional tasks and stairs. Pt will benefit from skilled PT for 2x/week from 06/25/2025 to 09/23/2025 to address the above impairments. I hereby deem this POC medically necessary. Please sign below. Date: Cosigned by Spencer Ferguson NP at 06/28/2025 11:40 AM EST documented in this encounter Plan of Treatment DateTypeDepartmentCare Team (Latest Contact Info)Boqmypbprbq75/17/2025 4:00 PM ESTOffice Visit [facility] [address] [facility] [address] [place] [address] 09/02/2025 10:00 AM ESTOffice Visit [facility] [address] [facility] [address] [place] [address] documented as of this encounter Visit Diagnoses Diagnosis Bilateral low back pain without sciatica, unspecified chronicity- Primary DJD (degenerative joint disease), 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
--- OUTSIDE RECORDS SUMMARY | 2025-06-28 10:00 | XMS_ITS | Encounter Summary ---
Author Organization [facility] Address [address] [place] [address] Care Team Providers Care Head Butler Name Role Phone Rian Chappell MD Primary Care Provider Reason for Visit * Rehabilitation - Outpatient (Routine) - ClosedSpecialtyDiagnoses / Procedures Referred By ContactReferred To ContactPhysical Therapy Diagnoses Bilateral low back pain without sciatica, unspecified chronicity DJD (degenerative joint disease), lumbosacral Spondylolisthesis at L4-L5 level Procedures NM OFFICE/OUTPATIENT [facility] MDM 60 MINUTES Spencer Ferguson, CRIMINAL INVESTIGATOR [address] [facility] [address] [place] [address] Phone: tel: fax: [facility] [address] [facility] [address] [place] [address] Phone: tel: fax: Referral IDStatusReasonStart DateExpiration DateVisits RequestedVisits [id number] Consult and Treat / Encounter Details DateTypeDepartmentCare Team (Latest Contact Info)Qjiqivcyqcq00/17/2025 10:00 AM ESTTreatment [facility] [address] [facility] [address] [place] [phone] Kelbley, Lauren, POULTRY PROCESSOR Bilateral low back pain without sciatica, unspecified [...] drinks on one occasion?Never02/12/2024HQ-2AnswerDate RecordedPatient Health Questionnaire-2 [id number] and Gender InformationValueDate RecordedSex Assigned at BirthNot on fileLegal QjyUzcx2710/24/2022 6:54 PM EDTGender IdentityNot on file Sexual OrientationNot on fileOccupationIndustryJob Start DateJob End DateRetired Not on fileNot on fileNot on filedocumented as of this encounter Plan of Treatment DateTypeDepartmentCare Team (Latest Contact Info)Culxeecoynu38/17/2025 4:00 PM ESTOffice Visit [facility] [address] [address] [place] [address] 09/02/2025 10:00 AM ESTOffice Visit [facility] [address] [place] [address] documented as of this encounter Visit Diagnoses [...] MD [address] [place] [address] PCP - GeneralInternal Medicine04/21/25documented as of this encounter
[2025-07-04 09:29] VITALS: BP 133/88; PULSE 88; TEMP 36.6; O2SAT 98; BMI 27.0
--- OUTSIDE RECORDS SUMMARY | 2025-07-04 09:41 | XMS_ITS | CCD ---
Author Organization [facility] InformCount includes the [facility] Care Team Providers [employer] Name Role Phone STACI, DR MC Attending Unavailable IGNACIO, DR SAUCEDO Primary Care Unavailable STACI, DR MC Admitting [...] Other Provider DO Eduardo Brock Attending Provider [phone] MD Jesusita Small Referring Provider [phone] MD Jesusita Small Attending Provider [phone] Unavailable Primary Care Provider UnavailDO Chris oLyd Primary Care Provider DO Chris Pierre Attending Provider Unavailable Primary Care Provider UnavailTAMANNA [place] Attending Unavailable LEE KNOWLES Referring Unavailab TAMANNA Osorio Attending Unavailable DO Chris Pierre Primary Care Provider DO Chris Pierre Attending Provider DO Chris Pierre Primary Care Provider DO Chris Pierre Attending Provider MD Shanthi Lancaster Attending Provider [phone] MD Shanthi Lancaster Attending Provider [phone] DO Chris Pierre Primary Care Provider DO Chris Pierre Attending Provider Dr. Chris Pierre Primary Care MD SHANTHI Roman Attending Unavailable MD SHANTHI LANCASTER Referring Unavailable Ignacio, Dr. Chris Almonte Primary Care MD SAHNTHI Roman Attending Unavailable MD SHANTHI LANCASTER Referring Unavailable Ignacio, Dr. Chris Almonte Primary [facility] MD SHANTHI Roman Attending Unavailable MD SHANTHI LANCASTER Referring Unavailable Ignacio, Dr. Chris Almonte Primary [facility] Magaly Dallas, Ms. Faith Roberson Attending Magaly Dallas, Ms. Faith Roberson Referring Magaly Pierre, Dr. Chris Almonte Primary [facility] MD SHANTHI Roman Attending Unavailable MD SHANTHI LANCASTER Referring Unavailable MD SHANTHI LANCASTER Attending Unavailable Ignacio, Dr. Chrsi Almonte [facility] MD SHANTHI Roman Referring Unavailable MD SHANTHI LANCASTER Attending Unavailable Ignacio, Dr. Chris Almonte Primary Care MD SHANTHI Roman Referring Unavailable Ignacio, Dr. Chris Almonte Primary Care Dr. Shanthi Roman Attending Unavailable Ignacio, Dr. Chris Almonte Primary Care Magaly Lancaster, Dr. Maki Attending Unavailable DO Chris Pierre Primary Care Provider MD Jesusita Small Attending Provider DO Chris Pierre Attending Provider Chris Pierre DO Primary Care Provider [phone] DO Jesusita Hoffman Emergency Provider [phone] DO Chris Pierre Primary Care Provider Lancaster, MD Shanthi Referring Provider Tessa, FLIP Hilton Attending Provider DO [facility] Emergency Provider MD Jesusita Small Attending Provider SMALL, Jesusita R Attending Unavailable SMALL, Jesusita R Admitting Unavailable Cole King Attending Unavailable SMALL, Jesusita R Attending Unavailable SMALL, Jesusita R Attending Unavailable DO Ignacio Chris Primary Care Provider [phone] MD Jesusita Small Attending Provider SHANTHI LANCASTER Attending Unavailable CHRIS PIERRE Primary Care Unavailable Ignacio AZAR Chris Primary Care Provider Staci HALEY, Jesusita Attending Provider Ignacio AZAR Chris Primary Care Provider Staci HALEY, Jesusita Attending Provider Jamison Lauren MD Attending Provider Misha Chauhan MD Attending Provider Chris Pierre DO Attending Provider Chris Pierre DO Referring Provider [phone] SMALL, Jesusita R Attending Unavailable Cole King Attending Unavailable Ignacio AZAR [place] Primary Care Provider SMALL, Jesusita R Attending Unavailable SMALL, Jesusita R Attending Unavailable SMALL, Jesusita R Attending Unavailable SMALL, Jesusita R Referring Unavailable SMALL, Jesusita R Admitting Unavailable Ignacio AZAR Chris Primary Care Provider Misha Chauhan MD Attending Provider Chris Pierre DO Attending Provider Chris Pierre DO Referring Provider Ignacio AZAR Chris Primary Care Provider Misha Chauhan MD Attending Provider Ignacio AZAR Chris Primary Care Provider Misha Chauhan MD Attending Provider Tessa CASTELAN, Spencer Hilton Attending Provider [phone] Itkrys AZAR, Ti Attending Provider Chris Pierre DO Primary Care Provider [phone] Misha Chauhan MD Attending Provider Jessenia Loving MD [facility] Care Provider Jessenia Loving MD Primary Care Provider [phone] Chris Pierre DO Primary Care Provider SPENCER ZARATE Attending Unavailable TESSASPENCER ALTAMIRANO Referring Unavailable CHRIS PIERRE Attending Unavailable IGNACIO, CHRIS Hinson Attending Unavailable CHRIS PIERRE Attending Unavailable OKSANA, IT Shah Attending Unavailable CHRIS PIERRE Referring Unavailable ITKRYS, TI Shah Attending Unavailable JESSENIA LOVIGN Referring Unavailable DIDION, MARY Hilton Attending Unavailable DIDION, MARY Hilton Referring Unavailable DIDION, MARY Hilton Attending Unavailable DIDION, MARY L Attending Unavailable DIDION, MARY L Referring Unavailable TESSA, SPENCER Hilton Attending Unavailable CHRIS PIERRE Attending Unavailable CHRIS PIERRE Referring Unavailable TESSASPENCER ALTAMIRANO Attending Unavailable Misha Chauhan Attending Chris Peralta [facility] Care Unavailable KenyettaomMisha sam Admitting Unakareni Chris Souza Admitting Unavailable Chris Pierre Primary Care Unavailable Chris Pierre Attending Unavailable Ignacio Chris Primary Care Unavailable Spencer Zarate Admitting Unavailable TessaSpencer altamirano Attending Unavailable Itzkolupe, Ti Admitting Unavailable Itkrys, Ti Attending Unavailable Misha Chauhan Attending Chris Peralta Referring Unavailable Ignacio Chris Primary Care Unavailable Misha Chauhan Admitting Unaidris corral Fibroscan, Temporary Admitting Unavailable Fibroscan, Temporary Attending Unavailable Jessenia Loving [facility] Unavailable Misha Chauhan Attending Magaly Pierre Chris [facility] Care Unavailable Misha Chauhan Admitting Misha Arias Attending Misha Arias Admitting Jessenia Stanley Primary Care Unavailable Ti Ochoa Admitting Unavailable Ti Ochoa Attending Unavailable Jamison Lauren Admitting Unavailable Jamison Lauren Attending Unavailable Chris Pierre Primary Care Unavailable Misha Chauhan MD Attending Provider Jessenia Loving MD Primary Care Provider Fibroscan, Temporary Attending Provider Unavaila ble Allergies Allergy ClassificationReported Allergen(s)Allergy TypeDate of OnsetReaction(s) Facilityblack walnut pollen extract (2 sources)black walnut pollen extractDrug [facility]ergyC[facility] (19 sources)Hmg-Coa Reductase Inhibitors (Statins); Translations: [Statins] Allergy to drug (finding)MyalgiaMP-[facility] 250 [facility] Work Phone: (18 sources)atorvastatin; Translations: [atorvastatin]Drug Tmmskub88-83-1394 Myalgia, [facility] (18 sources)cerivastatin; Translations: [cerivastatin]Drug Areozuf93-91-4692 Myalgia, [facility] (18 sources)colesevelam; Translations: [colesevelam]Drug Wzaqpos74-80-9183 Unknown (qualifier value), [facility] (20 sources)ezetimibe; Translations: [ezetimibe]Drug Purjqta77-26-6571Gtzbybd, [facility] (20 sources)fluvastatin; Translations: [fluvastatin]Drug Acdpyrv64-01-0806 Myalgia, [facility] (18 sources)metaxalone; Translations: [metaxalone]Drug Obzwvdy89-58-5648Uitetnd (qualifier value), [facility] (18 sources)Simvastatin; Translations: [simvastatin]Drug Scbwtav13-73-5504 Myalgia, [facility] (8 sources)Seasonal allergy; Translations: [SEASONAL ALLERGIES]Allergy to oxbsgnymm70-40-2674Inlxh: See [place] (12 sources)Lisinopril; Translations: [lisinopril]Drug Hnsvxxw03-43-9680FlzeqDO Hospitals 3 Repository (8 sources)Angiotensin Receptor Blockers; Translations: [Angiotensin Receptor Blockers]Allergy to drug (finding)[facility] 250 DO Work Phone: (20 sources)atorvastatinDrug Gkoqwtm54-25-2743ArdyrbbTLNA Healthcare (20 sources)cerivastatinDrug Tuaitka88-78-0302NOZV Healthcare (20 sources)colesevelamDrug Wnnttnv99-81-5458PMWH [facility] (20 sources)ezetimibeDrug Nzqpnry75-15-8585CFHE [facility] (20 sources)LisinoprilPropensity to adverse djesshrqt70-37-3677EqbwwHIPI Healthcare (20 sources)LosartanDrug Mjtbowv82-76-1739PtjzqBYSS Healthcare (20 sources)metaxaloneDrug Turzkiz58-13-6372TwacufoALSZ Healthcare (20 sources)SimvastatinAllergy to ksondcvfc01-07-9263TBYA Healthcare (19 sources)Xmeevmr-LUB-DkO Reductase Inhibitor; Translations: [Aqhjrag-NGH-AdE Reductase Inhibitor]Propensity to adverse bacbxvvcd52-27-0654IqpezFayette County Memorial Hospital (3 sources)No Known Medication Allergies; Translations: [No Known Medication Allergies]Propensity to adverse reactions (disorder)[facility] Repository (1 source)Hmg-Coa Reductase Inhibitors (Statins); Translations: [QIHQFYO-MDK-ZVG REDUCTASE INHIBITORS]Propensity to adverse reactions to drug (disorder) [place] [address] [place] (1 source)ARB-ANGIOTENSIN RECEPTOR ANTAGONIST; Translations: [ARB-ANGIOTENSIN RECEPTOR ANTAGONIST]Propensity to adverse reactions to drug (disorder)08-29-2023 [facility] 3 Repository Medications Current Medications MedicationDrug Class(es)DatesSig (Normalized)Sig (Original)3 ML semaglutide 2.68 MG/ML Pen Injector [Ozempic] (4 sources)Start: 82-01-8863Gdjexve 8 mg/3 mL (2 mg dose) subcutaneous solution Refills(s) 0 Start Date: 04/01/24 Status: [id number] 200 actuat albuterol 0.09 mg/actuat metered dose inhaler (20 sources)beta2-Adrenergic AgonistStart: 83-77-7061pyaqjrvnl HFA 90 mcg/act inhaler Indications: Shortness of breath , [place] (dyspnea on exertion) INHALE 2 INHALATIONS BY MOUTH EVERY 4 HOURS IF NEEDED FOR WHEEZING 34 g 4 04/20/2025 ActiveStart: 12-28-2024 End: 23-28-4792crzn 2 puff(s) by inhalation every four hours for wheezing albuterol HFA 90 mcg/act inhaler Indications: Shortness of breath , [place] (dyspnea on exertion) Inhale 2 puffs every 4 (four) hours if needed for wheezing 18 g 1 03/01/2025 03/01/2026 ActiveStart: 10-14-0795ejhyvyhye Refills(s) 0 Start Date: 06/10/23 Status: Orderedtake 1-2 puff(s) by inhalation every four to six hours as neededAlbuterol Sulfate HFA 108 (90 Base) MCG/ACT Inhalation Aerosol Solution INHALE 1 TO 2 PUFFS EVERY 4TO 6 HOURS NEEDED. Quantity: 0 Refills: 0 Ordered: 28-Jan-2023 DO Activeamoxicillin 875 mg / clavulanate 125 mg oral tablet (4 sources)Penicillin-class AntibacterialStart: 04-21-2025 End: 59-94-6518tnsz 1 tablet by mouth in the morningamoxicillin-clavulanate (Augmentin) 875-125 MG tablet Indications: Lower respiratory infection , Acute cough Take 1 tablet (875 mg) by mouth in the morning and 1 tablet (875 mg) before bedtime. Do all this for 7 days. 14 tablet 04/21/2025 04/28/2025 Active aspirin 81 mg chewable tablet (20 sources)Platelet Aggregation Inhibitor, Nonsteroidal Anti-inflammatory Drug Start: 03-59-1408phol 1 tablet by mouth once dailyStart: 04-15-3319ymxq 1 tablet by mouth once dailyaspirin 81 mg oral tablet 81 mg = 1 tab(s), Oral, Daily, Refills(s) 0, Prophylaxis Start Date: 05/01/19 Status: OrderedStart: 08-25-2017 End: 52-04-5097bhby 1 tablet by mouth once dailyAspirin (Aspir-81) 81 mg Tablet,Delayed Release (Dr/Ec) Discontinued 81 MG PO Daily August 25, 2017 12:00am September 01, 2024 10:03ambenoxinate hydrochloride 4 mg/ml / fluorescein sodium 2.5 mg/ml ophthalmic solution (4 sources)Diagnostic DyeStart: 08-31-2022 End: 62-95-6976ryleyhzqenh-benoxinate 0.25-0.4 % 1 Drop (FLURESS)Start: 07-19-2022 End: 54-51-8605srdlyqkycpd-benoxinate 0.25-0.4 % 1 Drop (FLURESS)Start: 06-01-2022 End: 01-84-0650dnuuxyjarec-benoxinate 0.25-0.4 % 1 Drop (FLURESS)brimonidine tartrate 2 mg/ml ophthalmic solution (2 sources)alpha-Adrenergic AgonistStart: 07-19-2022 End: 49-55-2844upatsqrhweu 0.2 % 1 Drop (ALPHAGAN)cyclobenzaprine hydrochloride 5 mg oral tablet (20 sources)Muscle RelaxantStart: 01-78-1044oakj 1 tablet by mouth three times daily as needed for muscle spasmscyclobenzaprine (Flexeril) 5 MG tablet Indications: Sacroiliac joint pain Take 1 tablet (5 mg) by mouth 3 (three) times a day as needed for muscle spasms 15 tablet 09/17/2024 ActiveStart: 08-25-2017 End: 23-43-1087iizd 1 tablet by mouth three times daily as needed for muscle spasmsCyclobenzaprine 10 mg tablet Discontinued 10 MG PO Three times daily as needed for muscle spasm 30 0 August 25, 2017 12:00am September 29, 2023 12:46amdoxazosin 4 mg oral tablet (20 sources)alpha-Adrenergic BlockerStart: 08-29-2023 End: 23-17-1756ekya 1 tablet by mouth at bedtimedoxazosin (Cardura) 4 MG tablet Indications: Benign prostatic hyperplasia without lower urinary tract symptoms Take 1 tablet (4 mg) by mouth at bedtime 90 tablet 2 03/01/2025 ActiveStart: 68-56-4376oeae 1 tablet by mouth once dailyDoxazosin Mesylate 4 MG Oral Tablet TAKE 1 TABLET DAILY. Quantity: 90 Refills: 3 Ordered: 06-May-2023 Shanthi Lancaster MD Start : 21-Feb-2023 ActiveStart: 12-24-2022 End: 37-89-1636ozpgopmyw 2 mg Tab Refills(s) 0 Start Date: 06/10/23 Status: Ordereddoxycycline hyclate 100 mg oral capsule (2 sources)Tetracycline-class DrugStart: 04-27-2025 End: 90-85-0812rtsvybzbdmu (Vibramycin) 100 MG capsule Indications: Acute cough , Lower respiratory infection , Shortness of breath Take 1 capsule (100 mg) by mouth in the morning and 1 capsule (100 mg) before bedtime. Do all this for 7 days. Take with at least 8 ounces (large glass) of water, do not lie down for30 minutes after. 14 capsule 04/27/2025 05/04/2025 Activeezetimibe 10 mg oral tablet (20 sources)Dietary Cholesterol Absorption InhibitorStart: 08-09-2022 End: 28-08-2564gihv 1 tablet by mouth at bedtimeezetimibe (Zetia) 10 MG tablet Indications: Mixed hyperlipidemia Take 1 tablet (10 mg) by mouth at bedtime 90 tablet 1 03/01/2025 ActivemethylPREDNISolone (2 sources)CorticosteroidStart: 09-17-2024 End: 72-73-1468idjuzfCIQRVOSgfyxu (Medrol Dospak) 4 MG tablets Indications: Lumbosacral pain Take as directed on package. 21 tablet 09/17/2024 09/24/2024 ActiveMultiple Vitamin (Multi-Vitamin) tablet (5 sources) End: 20-47-2831nclx 1 tablet by mouth in the morningMultiple Vitamin (Multi- Vitamin) tablet Take 1 tablet by mouth in the morning. 02/23/2025 Discontinued take 1 tablet by mouth in the morningMultiple Vitamin (Multi-Vitamin) tablet Take 1 tablet by mouth in the morning. ActiveMultiple Vitamins-Minerals (CENTRUM ADULTS PO) (20 sources)Multiple Vitamins-Minerals (CENTRUM ADULTS PO) Take by mouth Active Multiple Vitamins-Minerals (CENTRUM ADULTS PO) Take by mouth. ActiveMultiple Vitamins-Minerals (CENTRUM ADULTS PO) Take by mouth. 0 Active Lnmybceg-Qoa-Hu-Lycopen-Lutein (Centrum Silver) 0.4 mg-300 mcg- 250 mcg tablet (18 sources)Start: 18-35-5392wanl 1 tablet by mouth once dailyStart: 09-29-2023 take 1 tablet by mouth once ljtfuObdjixwp-Qbh-Gl-Lycopen-Lutein (Centrum Silver) 0.4 mg-300 mcg- 250 mcg tablet Active 1 TAB PO Daily September 29, 2023 1:00am Complies with drug therapyStart: 97-74-6747aqtx 1 tablet by mouth once daily Start: 08-88-6825ipca 1 tablet by mouth once zgxmuPswxvirx-Avr-Uf-Lycopen-Lutein (Centrum Silver) 0.4 mg-300 mcg- 250 mcg tablet Active 1 TAB PO Daily September 29, 2023 1:00amStart: 43-68-6606jtgi 1 tablet by mouth once daily Xsgnjkrs-Bfz-Mu-Lycopen-Lutein (Centrum Silver) 0.4 mg-300 mcg- 250 mcg tablet Active 1 TAB PO Daily September 29, 2023 12:00amMultivitamin preparation (6 sources)Start: 00-68-5471epexgrwpwyfo Refill(s) 0 Start Date: 06/10/23 Status: Orderedolmesartan medoxomil 20 mg oral tablet (11 sources)Angiotensin 2 Receptor BlockerStart: 10-02-2024 End: 21-62-4581nbwr 0.5 tablet by mouth once dailyolmesartan (BENIcar) 20 MG tablet Take 20 mg by mouth Daily 1/2 tablet 10/02/2024 11/12/2024 Discontinued (Side effects)Start: 85-66-3918apcr 1 tablet by mouth once dailyolmesartan (BENIcar) 20 MG tablet Take 20 mg by mouth Daily 10/02/2024 ActiveStart: 10-02-2024 End: 94-25-9282rppt 10 mg by mouth once dailyOlmesartan 20 mg tablet Discontinued 10 MG PO Daily 0 October 02, 2024 12:00am November 17, 2024 9:00amoxyCODONE hydrochloride 5 mg oral tablet (1 source)Opioid AgonistStart: 03-26-2024 End: 94-90-5989lrwm 1 tablet by mouth every six hours as needed for pain oxyCODONE 5 mg Tab 5 mg = 1 tab(s), Oral, q6hr, PRN for pain, X 5 day(s), # 20 tab(s), Refills(s) 0, Pharmacy: [facility]/pharmacy #[id number], 187, cm, 03/26/24 16:17:00 EDT, Height/Length Dosing, 101.4, kg, 03/26/24 16:17:00 EDT, Weight Dosing Start Date: 03/26/24 Stop Date: 03/31/24 Status: Orderedpotassium citrate 15 meq extended release oral tablet (20 sources)Start: 02-32-8135lcvi 1 tablet by mouth in the morningpotassium citrate CR (Urocit-K-15) 15 mEq ER tablet Indications: Primary hypertension TAKE 1 TABLETBY MOUTH IN THE MORNING AND 1 TABLET BY MOUTH IN THE EVENING TAKE WITH MEALS 200 tablet 3 10/05/2024 ActiveStart: 19-16-9689oswp 2 tablets by mouth twice dailypotassium citrate 15 mEq oral tablet, extended release 30 mEq = 2 tab(s), Oral, BID, # 360 tab(s), Refills(s) 3, Pharmacy: [facility], 187, cm, 06/10/23 10:38:00 EDT, Height/Length Dosing, 99, kg, 06/10/23 10:38:00 EDT, Weight Dosing Start Date: 06/26/23 Status: OrderedStart: 90-14-0088bnfm 2 tablets by mouth twice dailyUrocit-K 15 mEq oral tablet, extended release 30 mEq = 2 tab(s), Oral, BID, # 360 tab(s), Refills(s) 3, Pharmacy: [facility], 187, cm, 04/23/22 10:31:00 EDT, Height/Length Dosing, 99, kg, 04/23/22 10:31:00 EDT, Weight Dosing Start Date: 04/23/22 Status: OrderedStart: 08-25-2017 End: 46-70-7134tazm 1 tablet by mouth in the morningpotassium citrate CR (Urocit-K-15) 15 mEq ER tablet Indications: Primary hypertension Take 1 tablet (15 mEq) by mouth in the morning and 1 tablet (15 mEq) in the evening. Take with meals. 180 tablet 3 03/01/2025 ActiveStart: 31-11-2782rapx 15 mg by mouth twice dailyPotassium Citrate Active 15 MG PO Twice daily August 25, 2017 12:00am Start: 95-16-1882bdhu 15 mg by mouth once dailyPotassium Citrate Active 15 MG PO Daily August 25, 2017 12:00ampredniSONE 10 mg oral tablet (14 sources)Start: 04-27-2025 End: 84-08-5541bxeg 4 tablets by mouth once daily, then take 3 tablets by mouth once daily, then take 2 tablets bymouth once daily, then take 1 tablet by mouth once dailypredniSONE (Deltasone) 10 MG tablet Indications: Acute cough , Lower respiratory infection , Shortness of breath Take 4 tablets (40 mg) by mouth Daily for 3 days, THEN 3 tablets (30 mg) Daily for 3 days, THEN 2 tablets (20 mg) Daily for 3 days, THEN 1 tablet (10 mg) Daily for 3 days. 30 tablet 04/2705/09/2025 ActiveStart: 04-21-2025 End: 05-19-4554ellfurKKCQ (Deltasone) 20 MG tablet Indications: Lower respiratory infection , Acute cough Take twotablets once a day for 5 days 10 tablet 04/21/2025 04/27/2025 DiscontinuedStart: 78-98-8554ftqr 2 tablets by mouth once daily, then take 1 tablet by mouth once dailypredniSONE 10 MG Oral Tablet TAKE 2 TABLETS DAILY FOR 4 DAYS, THEN 1 TABLET DAILY FOR 4 DAYS Quantity: 12 Refills: 0 Ordered: 23-Oct-2022 DO Start : 23-Oct-2022 CompleteStart: 70-42-3720tkjf 1 tablet by mouth once dailypredniSONE (DELTASONE) 20 mg tablet Take 1 tablet by mouth once daily. 0 10/02/2021 ActiveComment on above:Take 1 tablet by mouth once daily.proparacaine hydrochloride 5 mg/ml ophthalmic solution (3 sources)Local AnestheticStart: 08-31-2022 End: 28-01-3055peywgqcbliqc 0.5 % 1 Drop (ALCAINE)Start: 06-01-2022 End: 13-86-0460fkqyepmaodcf 0.5 % 1 Drop (ALCAINE)rosuvastatin calcium 40 mg oral tablet (20 sources)HMG-CoA Reductase InhibitorStart: 09-29-2023 End: 82-25-6459omrm 1 tablet by mouth at bedtimerosuvastatin (Crestor) 40 MG tablet Indications: Mixed hyperlipidemia Take 1 tablet (40 mg) by mouth at bedtime 90 tablet 3 03/01/2025 ActiveStart: 90-52-6220ovartbbcorkz (Crestor) 40 MG tablet Indications: Mixed hyperlipidemia (CMS/HCC) TAKE 1 TABLET BY MOUTH AT NIGHT 90 tablet 3 03/04/2023 ActiveStart: 70-60-1221gznm 1 tablet by mouth once dailyCrestor 20 mg Tab 20 mg = 1 tab(s), Oral, Daily, Refills(s) 0, High cholesterol Start Date: 05/01/19Status: OrderedComment on above:Take 20 mg by mouth once daily.Semaglutide (5 sources)Start: 14-93-7596olwwaj 2 mg by subcutaneous injection every week Start: 83-23-8704dzeosn 2 mg by subcutaneous injection every weekSemaglutide (Ozempic) 2 mg/dose (8 mg/3 mL) pen injector Active 2 MG SUBCUT every week August 28, 2024 1:00am Complies with drug therapyStart: 70-45-2303obarlh 2 mg by subcutaneous injection every weekSemaglutide (Ozempic) 2 mg/dose (8 mg/3 mL) pen injector (6 sources)Start: 16-39-5708wqgfkg 2 mg by subcutaneous injection every week Semaglutide (Ozempic) 2 mg/dose (8 mg/3 mL) pen injector Active 2 MG SUBCUT every week August 28, 2024 1:00amStart: 91-66-2566jhnyez 2 mg by subcutaneous injection every weekSemaglutide (Ozempic) 2 mg/dose (8 mg/3 mL) pen injector Active 2 MG SUBCUT every week August 28, 2024 12:00amsemaglutide (Ozempic) 4 MG/3ML solution pen-injector (2 sources)Start: 46-43-5664fsmfni 1 mg by subcutaneous injection every week semaglutide (Ozempic) 4 MG/3ML solution pen-injector Indications: Type 2 diabetes mellitus with other specified complication, without long-term current use of insulin (CMS/HCC) Inject 1 mg under the skin 1 (one) time per week 1 each 08/14/2023 ActiveSemaglutide, 2 MG/DOSE, 8 MG/3ML solution pen-injector (20 sources)Start: 79-63-0456pcnmbq 2 mg by subcutaneous injection every week Semaglutide, 2 MG/DOSE, 8 MG/3ML solution pen-injector Indications: Type 2 diabetes mellitus with other specified complication, without long-term current use of insulin (HCC) Inject 2 mg under the skin 1 (one) time per week 9 mL 3 03/01/2025 ActiveStart: 68-28-1470dxgrbp 2 mg by subcutaneous injection every weekSemaglutide, 2 MG/DOSE, 8 MG/3ML solution pen-injector Indications: Type 2 diabetes mellitus with other specified complication, without long-term current use of insulin (HCC) Inject 2 mg under the skin 1 (one) time per week 9 mL 3 08/25/2024 ActiveStart: 91-12-8776hmmatl 2 mg by subcutaneous injection every weekSemaglutide, 2 MG/DOSE, 8 MG/3ML solution pen-injector Indications: Type 2 diabetes mellitus with other specified complication, without long-term current use of insulin Inject 2 mg under the skin 1 (one) time per week 9 mL 3 08/25/2024 ActiveStart: 82-29-8533huxcca 2 mg by subcutaneous injection every weekSemaglutide, 2 MG/DOSE, 8 MG/3ML solution pen-injector Indications: Type 2 diabetes mellitus with other specified complication, without long-term current use of insulin (CMS/HCC) Inject 2 mg under the skin 1 (one) time per week 9 mL 3 08/25/2024 ActiveStart: 07-14-2024 End: 24-72-1198eavndw 2 mg by subcutaneous injection every weekSemaglutide, 2 MG/DOSE, 8 MG/3ML solution pen-injector Indications: Type 2 diabetes mellitus with other specified complication, without long-term current use of insulin (CMS/HCC) Inject 2 mg under the skin 1 (one) time per week 9 mL 3 07/14/2024 08/25/2024 Discontinued (Reorder)Start: 34-63-3696oivrbk 2 mg by subcutaneous injection every weekSemaglutide, 2 MG/DOSE, 8 MG/3ML solution pen-injector Indications: Type 2 diabetes mellitus with other specified complication, without long-term current use of insulin (CMS/HCC) Inject 2 mg under the skin 1 (one) time per week 9 mL 3 07/14/2024 ActiveStart: 32-19-1240htiogx 2 mg by subcutaneous injection every weekSemaglutide, 2 MG/DOSE, 8 MG/3ML solution pen- injector Indications: Type 2 diabetes mellitus with other specified complication, without long-term current use of insulin ([facility]) Inject 2 mg under the skin 1 (one) time per week 3 mL 11 01/09/2024 Activetamsulosin hydrochloride 0.4 mg oral capsule (20 sources)alpha-Adrenergic BlockerStart: 09-29-2023 End: 49-87-1456akfc 1 capsule by mouth every twenty-four hours at bedtime tamsulosin (Flomax) 0.4 MG 24 hr capsule Indications: Benign prostatic hyperplasia without lower urinary tract symptoms Take 1 capsule (0.4 mg) by mouth at bedtime 90 capsule 1 03/01/2025 ActiveStart: 63-20-8990xtsd 1 capsule by mouth once dailytamsulosin 0.4 mg Cap 0.4 mg = 1 cap(s), Oral, Daily, # 90 cap(s), Refills(s) 3, Pharmacy: [facility], 187, cm, 04/01/24 14:07:00 EDT, Height/Length Dosing, 102, kg, 04/01/24 14:07:00 EDT, Weight Dosing Start Date: 04/14/24 Status: OrderedStart: 21-98-9951ucqr 1 capsule by mouth once daily at bedtimeFlomax 0.4 mg Cap 0.4 mg = 1 cap(s), Oral, Daily, Take one tab qhs, # 90 cap(s), Refills(s) 0, Pharmacy: [facility] ([facility] 187, cm, 04/23/22 10:31:00 EDT, Height/Length Dosing, 99, kg, 04/23/22 10:31:00 EDT, Weight Dosing Start Date: 02/10/23 Status: Orderedtake 1 capsule by mouth every twenty-four hours in the morningtamsulosin (Flomax) 0.4 MG 24 hr capsule Take 0.4 mg by mouth in the morning. 0 ActiveComment on above:Take 0.4 mg by mouth once daily.1 ml triamcinolone acetonide 40 mg/ml prefilled syringe (20 sources)CorticosteroidStart: 13-74-1705dcjqthknrzkhm acetonide (Kenalog-40) injection 40 mgStart: 07-29-2024 End: 42-90-2978adusrmxsnefjq acetonide (Kenalog-40) injection 40 mgStart: 07-29-2024 End: 92-27-3712xrgpbuzbiffyp acetonide (Kenalog-40) injection 40 mgStart: 07-29-2024 End: 24-96-991130 mg, Intra-articular, Once, On Sat07/29/24 at 1100, For 1 dose Start: 07-29-2024 End: 98-27-990839 mg, Intra-articular, Once, On Sat07/29/24 at 1100, For 1 dose Start: 05-12-2024 End: 40-26-1078nkhqttasnmfaz acetonide (Kenalog-40) injection 40 mgStart: 05-12-2024 End: 22-08-5437dkkxbtryrdfac acetonide (Kenalog-40) injection 40 mgStart: 05-12-2024 End: 62-90-1124xkmtoa 40 mg by intramuscular injection once40 mg, Intramuscular, Once, On Sat05/12/24 at 0930, For 1 doseStart: 05-12-2024 End: 07-43-0448ukiwbkaxqsnta acetonide (Kenalog-40) injection 40 mgStart: 05-12-2024 End: 20-50-9901ccmmlsoiztfxq acetonide (Kenalog-40) injection 40 mgStart: 05-12-2024 End: 98-24-5697sjlzib 40 mg by intramuscular injection once40 mg, Intramuscular, Once, On Sat05/12/24 at 0930, For 1 dosevalACYclovir 500 mg oral tablet (7 sources)Herpesvirus Nucleoside Analog DNA Polymerase Inhibitor, Herpes Simplex Virus Nucleoside Analog DNA Polymerase Inhibitor, Herpes Zoster Virus Nucleoside Analog DNA Polymerase InhibitorStart: 08-13-2024 End: 46-36-9552zyje 1 tablet by mouth in the morningvalACYclovir (Valtrex) 500 MG tablet Indications: Recurrent cold sores Take 1 tablet (500 mg) by mouth in the morning and 1 tablet (500 mg) before bedtime. Do all this for 12 days. 24 tablet 08/13/2024 08/25/2024 Activevalsartan 160 mg oral tablet (20 sources)Angiotensin 2 Receptor BlockerStart: 11-17-2024 End: 46-44-5102yeld 1 tablet by mouth once dailyZofran ODT 4 mg Tab-Dis (4 sources)Start: 83-57-6613lysu 1 tablet by mouth every eight hoursZofran ODT 4 mg Tab-Dis 4 mg = 1 tab(s), Oral, q8hr, # 12 tab(s), Refills(s) 0, Pharmacy: [facility] #[id number], 187, cm, 03/26/24 16:17:00 EDT, Height/Length Dosing, 101.4, kg, 03/26/24 16:17:00 EDT, Weight Dosing Start Date: 03/26/24 Status: Ordered Completed/Discontinued Medications MedicationDrug Class(es)DatesSig (Normalized)Sig (Original)amLODIPine 5 mg oral tablet (20 sources)Dihydropyridine Calcium Channel BlockerStart: 08-25-2017 End: 95-14-1624dgya 1 tablet by mouth once dailyAmlodipine 5 mg tablet Discontinued 5 MG PO Daily 30 0 October 02, 2024 12:00am October 29, 2024 11:47amComment on above:Take 1 tablet by mouth once daily.amLODIPine 5 mg / olmesartan medoxomil 20 mg oral tablet (8 sources)Dihydropyridine Calcium Channel Jewel, Angiotensin 2 Receptor BlockerStart: 09-23-2024 End: 22-01-3888ympg 1 tablet by mouth once dailyAmlodipine-Olmesartan 5-20 mg tablet Discontinued 1 TAB PO Daily 90 90 2 September 23, 2024 12:00am October 02, 2024 8:44amamoxicillin 875 mg oral tablet (7 sources)Penicillin-class AntibacterialStart: 15-88-5044pbqg 1 tablet by mouth once dailyamoxicillin (AMOXIL) 875 mg tablet Take 1 tablet by mouth once daily. 0 10/02/2021 ActiveComment on above:Take 1 tablet by mouth once daily. azithromycin 250 mg oral tablet (1 source)Macrolide AntimicrobialStart: 82-28-0643Wqrbzbqbtrfn 250 MG Oral Tablet TAKE 2 TABLETS BY MOUTH TODAY, THEN TAKE 1 TABLET DAILY FOR 4 DAYS Q uantity: 6 Refills: 0 Ordered: 11-Jun-2022 DO Start : 11-Jun-2022 Complete bisoprolol fumarate 10 mg oral tablet (20 sources)beta-Adrenergic BlockerStart: 09-29-2023 End: 98-59-4135ngjo 1 tablet by mouth once dailyBisoprolol Fumarate 10 mg tablet Discontinued 10 MG PO Daily September 29, 2023 12:00am July 31, 2024 11:03amStart: 01-50-6605vfol 1 tablet by mouth in the morningbisoprolol (Zebeta) 10 MG tablet Indications: Primary hypertension (CMS/HCC) Take 1 tablet (10 mg) by mouth in the morning. 30 tablet 3 09/18/2023 Activebisoprolol fumarate 10 mg / hydroCHLOROthiazide 6.25 mg oral tablet (20 sources)Thiazide Diuretic, beta-Adrenergic BlockerStart: 08-25-2017 End: 76-75-3066cvsu 1 tablet by mouth once dailyBisoprolol-Hydrochlorothiazide 10-6.25 tablet Discontinued 10 MG PO Daily August 25, 2017 12:00am September 29, 2023 12:43amtake 1 tablet by mouth once dailyBisoprolol- hydroCHLOROthiazide 5-6.25 MG Oral Tablet TAKE 1 TABLET DAILY. Quantity: 90 Refills: 0 Ordered: 04-Feb-2023 Shanthi Lancaster MD Active DOSE DECREASEDComment on above:Take 1 tablet by mouth once daily.cefdinir 300 mg oral capsule (1 source)Cephalosporin AntibacterialStart: 24-81-9903pzkk 1 capsule by mouth twice dailyCefdinir 300 MG Oral Capsule TAKE 1 CAPSULE BY MOUTH TWICE A DAY FOR 7 DAYS Quantity: 14 Refills: 0Ordered: 23-Oct-2022 DO Start : 23-Oct-2022 Completecephalexin 500 mg oral capsule (16 sources)Cephalosporin AntibacterialStart: 02-20-2024 End: 76-12-6035qgox 1 capsule by mouth twice dailyCephalexin 500 mg capsule Discontinued 500 MG PO Twice daily February 19, 2024 11:00pm July 31, 2024 11:02amcetirizine hydrochloride 5 mg oral tablet (2 sources)Histamine-1 Receptor AntagonistStart: 50-59-9837jssc 1 tablet by mouth once dailyCetirizine HCl - 5 MG Oral Tablet TAKE 1 TABLET DAILY DIRECTED. Quantity: 30 Refills: 6 Ordered:24-Dec-2022 Shanthi Lancaster MD Start : 24-Dec-2022 Activeciprofloxacin 500 mg oral tablet (1 source)Quinolone AntimicrobialStart: 56-67-2325ycbu 1 tablet by mouth once dailyCipro 500 mg Tab 500 mg = 1 tab(s), Oral, Daily, Take 1 tablet the day before the procedure and 1 tablet after the procedure, # 2 tab(s), Refills(s) 0, Pharmacy: [facility]acy #[id number], 187, cm, 04/01/2414:07:00 EDT, Height/Length Dosing, 102, kg, 04/01/24 14:07:00 EDT, Weight Dosing Start Date: 04/07/24 Status: Orderedclarithromycin 500 mg oral tablet (7 sources)Macrolide AntimicrobialStart: 58-18-3915bjst 1 tablet by mouth once dailyclarithromycin (BIAXIN) 500 mg Take 1 tablet by mouth once daily. 0 11/20/2021 ActiveComment on above:Take 1 tablet by mouth once daily.codeine phosphate 2 mg/ml / guaiFENesin 20 mg/ml oral solution (6 sources)Opioid AgonistStart: 04-21-2025 End: 46-94-0269buieGLRuciz-codeine (Robitussin-AC) 100-10 MG/5ML syrup Indications: Lower respiratory infection , Acute cough Take 5-10 mL by mouth 3 (three) times a day as needed for cough 200 mL 04/21/2025 06/16/2025 Discontinuedfluticasone propionate 0.05 mg/actuat metered dose nasal spray (20 sources)CorticosteroidStart: 09-29-2023 End: 15-49-3228bumh 1 spray(s) nasal route once daily as neededFluticasone Propionate (24 Hour Allergy Relief) 50 mcg/actuation spray,suspension Discontinued 1 SPRAY INTRANASAL Daily as needed for allergic symptoms September 29, 2023 12:00am July 311:02am administer into each nostrilStart: 51-85-8760axreoeylmnf propionate Inhalation, Refills(s) 0 Start Date: 06/10/23 Status: Orderedtake 2 spray(s) nasal route once dailyFlonase 50 MCG/ACT SUSP USE 2 SPRAYS IN EACH NOSTRIL ONCE DAILY Quantity: 0 Refills: 0 Ordered: 04-Feb-2023 DO Dhyuhy50 actuat fluticasone furoate 0.1 mg/actuat / umeclidinium 0.0625 mg/actuat / vilanterol 0.025 mg/actuat dry powder inhaler (2 sources)Anticholinergic, Corticosteroid, beta2-Adrenergic AgonistStart: 02-67-3300einy 1 puff(s) by inhalation once dailyTrelegy Ellipta 100-62.5-25 MCG/ACT Inhalation Aerosol Powder Breath Activated INHALE 1 PUFF ONCE DAILY Quantity: 60 Refills: 0 Ordered: 23-Oct-2022 DO Start : 23-Oct-2022 Active hydroCHLOROthiazide 25 mg / triamterene 37.5 mg oral tablet (7 sources)Potassium-sparing Diuretic, Thiazide DiureticStart: 34-27-9801hqfe 0.5 tablet by mouth once dailyTriamterene-HCTZ 37.5-25 MG Oral Tablet TAKE 1/2 TABLET DAILY. Quantity: 45 Refills: 3 Ordered: 21-Feb-2023 Tonny HALEY [facility] Start : 21-Feb-2023 Active new start End: 27-03-4233qxlc 1 tablet by mouth in the morningtriamterene- hydrochlorothiazide (Maxzide-25) 37.5-25 MG tablet Take 0.5 tablets by mouth in the morning. 0.5 mg tab in am. 0 09/18/2023 Discontinued (Therapy completed) ibuprofen 800 mg oral tablet (20 sources)Nonsteroidal Anti-inflammatory DrugStart: 08-25-2017 End: 13-96-7661ofhs 1 tablet by mouth every eight hours as needed for pain Ibuprofen 800 mg tablet Discontinued 800 MG PO Q8H as needed for pain 30 0 August 25, 2017 7:19pm September 29, 2023 12:45am24 hr isosorbide mononitrate 30 mg extended release oral tablet (20 sources)Nitrate VasodilatorStart: 08-25-2017 End: 16-72-5578nzfa 1 tablet by mouth once daily, then take 1 tablet by mouth every twenty-four hoursIsosorbide Mononitrate 30 MG tablet extended release 24 hr Discontinued 30 MG PO Daily August 25, 2017 12:00am July 31, 2024 11:01amComment on above:Take 1 tablet by mouth every morning.ketorolac tromethamine 5 mg/ml ophthalmic solution (6 sources)Nonsteroidal Anti-inflammatory Drug, Cyclooxygenase InhibitorStart: 12-77-0495Efwqkbmyk Tromethamine 0.5 % Ophthalmic Solution USE 1 DROP IN THE LEFT EYE TWICE DAILY. *USE FOR 1WEEK AFTER LASER THEN STOP* Quantity: 5 Refills: 0 Ordered: 20-Jul-2022 DO Start : 20-Jul-2022 CompleteStart: 97-65-8194onae 1 drop(s) into the eye(s) twice dailykeTORolac (ACULAR) 0.5 % ophthalmic solution Use 1 Drop in the left eye twice daily. 4 mL 0 07/20/2022 ActiveComment on above:Use 1 Drop in the left eye twice daily.lisinopril 10 mg oral tablet (20 sources)Angiotensin Converting Enzyme InhibitorStart: 08-25-2017 End: 05-78-6647nkhz 1 tablet by mouth once dailyLisinopril 10 MG tablet Discontinued 10 MG PO Daily August 25, 2017 12:00am September 29, 2023 1 2:45amComment on above:Take 1 tablet by mouth once daily.24 hr metoprolol succinate 25 mg extended release oral tablet (20 sources)beta-Adrenergic BlockerStart: 52-00-9416mwjt 25 mg by mouth once dailymetoprolol 25 mg, Oral, Daily, Refills(s) 0 Start Date: 08/31/24 Status: OrderedStart: 07-29-2024 End: 81-10-8876erjn 1 tablet by mouth once daily in the eveningMetoprolol Succinate 25 mg tablet extended release 24 hr Discontinued 25 MG PO Every evening October 29, 2024 11:47am December 22, 2024 9:24amMulti Vitamin TABS (19 sources)Multi Vitamin TABS TAKE 1 TABLET DAILY. Quantity: 0 Refills: 0 Ordered: 24-Jul-2021 DO Activeniacin 500 mg extended release oral capsule (20 sources)Nicotinic AcidStart: 17-63-3479vdxj 1 capsule by mouth once daily niacin 500 mg CR capsule Take 500 mg by mouth once daily. 0 05/01/2019 Active Start: 08-25-2017 End: 62-00-6861cymd 1 tablet by mouth once dailyNiacin 500 MG tablet extended release 24 hr Discontinued 500 MG PO Daily August 25, 2017 12:00amFebruary 2023 12:45amComment on above:Take 500 mg by mouth once daily.nitroglycerin 0.4 mg sublingual tablet (19 sources)Nitrate VasodilatorNitroglycerin 0.4 MG Sublingual Tablet Sublingual TAKE 1 TABLET BY MOUTH UNDER TONGUE FOR CHEST PAIN, REPEAT EVERY 5 MINUTES. IF 3RD DOSE NEEDED CALL 911 OR GO TO ER. Quantity: 25 Refills: 3 Ordered: 30-Nov-2021 Eduardo Brock DO Activephenylephrine hydrochloride 25 mg/ml ophthalmic solution (1 source)alpha-1 Adrenergic AgonistStart: 06-01-2022 End: 15-54-7025SOADAFfdetbpj 2.5 % 1 Drop (AK-DILATE, DONNA-SYNEPHRINE)pravastatin sodium 40 mg oral tablet (20 sources)HMG-CoA Reductase InhibitorStart: 08-25-2017 End: 84-02-7530yexd 1 tablet by mouth once dailyPravastatin 40 mg Tablet Discontinued 40 MG PO Daily August 25, 2017 12:00am September 29, 2023 12:44amSemaglutide (20 sources)Start: 07-31-2024 End: 17-72-6214sjyesu 1 mg by subcutaneous injection every weekSemaglutide (Ozempic) 1 mg/dose (4 mg/3 mL) pen injector Discontinued 2 MG SUBCUT every week July 31, 2024 12:02pm August 28, 2024 10:52amStart: 07-31-2024 End: 90-25-0549npbfoa 1 mg by subcutaneous injection every weekSemaglutide (Ozempic) 1 mg/dose (4 mg/3 mL) pen injector Discontinued 2 MG SUBCUT every week July 31, 2024 11:02am August 28, 2024 9:52amStart: 23-33-5247utlkyi 1 mg by subcutaneous injection every weekSemaglutide (Ozempic) 1 mg/dose (4 mg/3 mL) pen injector Active 2 MG SUBCUT every week July 31, 2024 11:02amStart: 09-29-2023 End: 14-51-0378ijiioi 1 mg by subcutaneous injection every weekSemaglutide (Ozempic) 1 mg/dose (4 mg/3 mL) pen injector Discontinued 1 MG SUBCUT every week September 29, 2023 1:00am July 31, 2024 12:03pmStart: 09-29-2023 End: 27-92-2317gbtspa 1 mg by subcutaneous injection every weekSemaglutide (Ozempic) 1 mg/dose (4 mg/3 mL) pen injector Discontinued 1 MG SUBCUT every week September 29, 2023 12:00am July 31, 2024 11:03amStart: 08-70-4264zsyxcw 1 mg by subcutaneous injection every weekSemaglutide (Ozempic) 1 mg/dose (4 mg/3 mL) pen injector Active 1 MG SUBCUT every week September 29, 2023 1:00amStart: 72-48-8707ywwpjf 1 mg by subcutaneous injection every weekSemaglutide (Ozempic) 1 mg/dose (4 mg/3 mL) pen injector Active 1 MG SUBCUT every week September 29, 2023 12:00amtropicamide 10 mg/ml ophthalmic solution (1 source)AnticholinergicStart: 06-01-2022 End: 00-97-0565bfknmwgmych 1 % 1 Drop (MYDRIACYL) Problems Active Problems Problem ClassificationProblemDateDocumented DateEpisodic/ChronicAbdominal pain (4 sources)Right flank pain; Translations: [Unspecified abdominal pain] 33-34-8548PpoknoiaEshoqt (7 sources)Uncomplicated asthma; Translations: [Unspecified asthma, uncomplicated]Onset: 158869-09-3058KursuagDinbckqk of urinary tract (20 sources)Calculus of kidney; Translations: [Kidney stone]Onset: 01-20-2016 EpisodicCoagulation and hemorrhagic disorders (20 sources)Thrombocytopenic disorder; Translations: [Thrombocytopenia, unspecified]Onset: 242856-66-3060ViqyqcyWmozaycqba disorders (7 sources)Chronotropic incompetence; Translations: [Other specified conduction disorders]ChronicCoronary atherosclerosis and other heart disease (20 sources)Coronary atherosclerosis; Translations: [Coronary atherosclerosis of [place] coronary artery]Onset: 335525-64-0592GhvqirfEygzacmj mellitus with complications (1 source)Type 2 diabetes mellitus with other specified complication; Translations: [Type 2 diabetes mellituswith other specified complication]Onset: 69-02-7149AehxflwMgfwrbsw mellitus without complication (20 sources)Type 2 diabetes mellitus; Translations: [Type 2 diabetes mellitus without complications]Onset: 948934-72-2657WfmsjtfHyhhssnhj of lipid metabolism (20 sources)Hyperlipidemia, unspecified; Translations: [Hyperlipidemia]Onset: 802365-28-8861ElacktjLreuoaqfz hypertension (20 sources)Essential (primary) hypertension; Translations: [Essential hypertension]Onset: 726522-50-7258UvzkiydNzcbx and electrolyte disorders (2 sources)Hyperkalemia; Translations: [Hyperpotassemia]EpisodicGastrointestinal hemorrhage (14 sources)Gastrointestinal hemorrhage; Translations: [Gastrointestinal hemorrhage, unspecified]Onset: 514163-62-5084SwecrrghWfizcstpjzrxs symptoms and ill-defined conditions (20 sources)Nocturia; Translations: [Nocturia]Onset: 20-25-3295TgveebviQvmbltmt (19 sources)Low tension glaucoma of left eye; Translations: [Low-tension glaucoma, left eye, indeterminate stage]Onset: 95-50-2015AfmabywBrcgkuffved of prostate (20 sources)Benign prostatic hyperplasia without lower urinary tract symptoms; Translations: [Benign prostatic hypertrophy with outflow obstruction]Onset: 60-70-3716HradfgoWtaxhrnabcpbi and screening for infectious disease (3 sources)Patient encounter status; Translations: [Other specified vaccination] 11-93-8476YfdobpftRpqnqskiljdd conditions of male genital organs (14 sources)Epididymitis; Translations: [Epididymitis]Onset: 06-01-2022 30-09-3330SjujexrlOguyhtpeh (2 sources)Influenza due to Influenza A virus; Translations: [Influenza due to other identified influenza virus with other respiratory manifestations] 19-12-9239VepuotozVatlskelwak chest pain (20 sources)Chest pain; Translations: [Chest pain, unspecified]Onset: 12-22-2021 11-65-6428OceskwlgYyqtjsawntadzb (16 sources)Localized, primary osteoarthritis of the hand; Translations: [Primary osteoarthritis, unspecified hand]Onset: hronic Other acquired deformities (4 sources)Lumbar spondylolisthesis; Translations: [Spondylolisthesis, lumbar region]62-22-0573EbitjzshVkpbe aftercare (1 source)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; Translations: [[employer] CURRNT USE ANTICOAGULANTS]Onset: 15-07-4218AlhcgxaaHvzra aftercare (1 source)Other mcc (current) drug therapy; Translations: [OTH JAIL CURRENT DRUG THERAPY]Onset: 10-56-4259RmrigkgqSrelm aftercare (11 sources)Treatment changed; Translations: [Long-term (current) use of other medications]EpisodicOther and unspecified benign neoplasm (2 sources)Adenoma of right adrenal gland; Translations: [Benign neoplasm of right adrenal gland]22-42-0375UiduwswxLwjrm circulatory disease (12 sources)Cardiac function test normal; Translations: [Normal cardiac ejection fraction]EpisodicOther circulatory disease (8 sources)Low blood pressure; Translations: [Hypotension, unspecified]Episodic Other connective tissue disease (2 sources)Trochanteric bursitis; Translations: [Trochanteric bursitis, left hip]81-69-3514FkxadkwbUuamq liver diseases (2 sources)Fatty (change of) liver, not elsewhere classified; Translations: [Other chronic nonalcoholic liver disease]02-14-8612VvxmkoqOlhih lower respiratory disease (20 sources)Dyspnea; Translations: [Shortness of breath]Onset: 12-22-2021 39-44-2631QwoptdzlMhbma lower respiratory disease (11 sources)Cough; Translations: [Cough]EpisodicOther lower respiratory disease (20 sources)Dyspnea on exertion; Translations: [Other forms of dyspnea]Onset: 02-08-2023 Resolved: 138023-71-3141McecbsuwLgqzf lower respiratory disease (6 sources)Other forms of dyspnea; Translations: [Other respiratory abnormalities]42-76-8096FztlxlwdVoxnh lower respiratory disease (6 sources)Cough; Translations: [Acute cough]77-41-8257EjqudpubUoans lower respiratory disease (4 sources)Lower respiratory tract infection; Translations: [Unspecified acute lower respiratory infection]14-30-2804PdhhpfszYssmd male genital disorders (15 sources)Retrograde ejaculation; Translations: [Retrograde ejaculation]Onset: 32-63-1276OeumiiijAefvz male genital disorders (14 sources)Pain in testicle; Translations: [Testicular pain, unspecified]Onset: 954519-16-5818ZsjakvagFowna nervous system disorders (7 sources)Plantar nerve lesion; 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, unspecified lower limb]Onset: 923931-54-1509CbkjadsItppr non-traumatic joint disorders (4 sources)Hip pain; Translations: [Pain in left hip]24-45-1863LgycnewgFdsmo nutritional; endocrine; and metabolic disorders (19 sources)Overweight in adulthood with body mass index of 25 or more but less than 30; Translations: [Overweight]EpisodicOther upper respiratory disease (7 sources)Allergic rhinitis; Translations: [Allergic rhinitis, unspecified] Onset: 505090-56-3744PonnwufPjsmn upper respiratory disease (7 sources)Seasonal allergy; Translations: [Other seasonal allergic rhinitis] Onset: 556709-49-7002CeobxpgBasuo upper respiratory infections (14 sources)Chronic frontal sinusitis; Translations: [Chronic frontal sinusitis] Onset: 414100-71-8878NymqhomHzkacpok codes; unclassified (2 sources)History of chest pain; Translations: [Personal history of other specified diseases]EpisodicResidual codes; unclassified (7 sources)Intolerance to drug; Translations: [Other drug allergy]Episodic Spondylosis; intervertebral disc disorders; other back problems (11 sources)Cervical spondylosis without myelopathy; Translations: [Spondylosis without myelopathy or radiculopathy, cervical region]Onset: ChronicSpondylosis; intervertebral disc disorders; other back problems (20 sources)Backache; Translations: [Dorsalgia, unspecified]60-24-7736Nnbycsfz Unclassified (7 sources)Finding of sensation of yzerisb06-67-6139 Past or Other Problems Problem ClassificationProblemDateDocumented DateEpisodic/Chronic Administrative/social admission (20 sources)Follow-up status; Translations: [Other specified counseling]Onset: 08-13-2023 Resolved: 686891-69-6419NcfxnkrqAltlbumqnq associated with dizziness or vertigo (20 sources)Lightheadedness; Translations: [Dizziness and giddiness]Onset: 09-18-2023 Resolved: 481494-48-2828DjlncigmNrhylkcb mellitus without complication (20 sources)Impaired fasting glycemia; Translations: [Impaired fasting glucose] Onset: 07-15-2015 Resolved: 475568-43-9748CsflmtogRuav disorders (20 sources)Mood disordersOnset: 08-14-2023 Resolved: Other aftercare (7 sources)Long-term current use of drug therapy; Translations: [Other continuous churn buttermaker (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) drug therapy]Onset: 633967-28-2116EgndiphaEhymz and unspecified benign neoplasm (20 sources)Lipoma (clinical); Translations: [Benign lipomatous neoplasm of other sites]Onset: 546517-83-8713RhpywjlpXkyxy circulatory disease (20 sources)Orthostatic hypotension; Translations: [Orthostatic hypotension] Onset: 09-18-2023 Resolved: 821423-05-1913GsgjeczwJktlz connective tissue disease (7 sources)Pain in limb; Translations: [Pain in unspecified limb]Onset: 981971-68-9948YpifhrcgWmjvt connective tissue disease (20 sources)Trochanteric bursitis of left hip; Translations: [Trochanteric bursitis, left hip]Onset: 05-12-2024 Resolved: 922971-74-8678UuodmhvhAjksx eye disorders (1 source)Dermatochalasis of unspecified eye, unspecified eyelid; Translations: [Dermatochalasis of unspecified eye, unspecified eyelid]Onset: 07-16-2024 EpisodicOther injuries and conditions due to external causes (7 sources)Angioedema; Translations: [Angioneurotic edema, initial encounter] Onset: 786745-16-7020EacddixvConju lower respiratory disease (4 sources)Shortness of breath; Translations: [Shortness of breath]Onset: 02-89-1275XwadpguvGyjgh non-traumatic joint disorders (20 sources)Chronic pain of right upper limb; Translations: [Pain in right shoulder]Onset: 981614-45-1786XlwkxaopMpbby nutritional; endocrine; and metabolic disorders (2 sources)Body mass index (BMI) 27.0-27.9, adult; Translations: [Body mass index (BMI) 27.0-27.9, adult]Onset: 45-01-9330RxmupwcgSgmwd screening for suspected conditions (not mental disorders or infectious disease) (20 sources)Raised prostate specific antigen; Translations: [Elevated prostate specific antigen [PSA]]Onset: 04-23-2022 Resolved: 57-78-9429RufptzrbBrgob upper respiratory disease (7 sources)Nasal congestion; Translations: [Nasal congestion]Onset: 06-01-2022 94-61-9705IecxeiulTkwpjebh codes; unclassified (7 sources)Abnormal sensation; Translations: [Other symptoms and signs involving general sensations and perceptions]Onset: 147042-91-0084YzpbuptsUchjvwsm codes; unclassified (7 sources)H/O: asbestos exposure; Translations: [Contact with and (suspected) exposure to asbestos]Onset: 301523-50-7576MnkazvdfFeglchzo codes; unclassified (9 sources)Other specified health status; Translations: [MICHELLE inhibitor intolerance]Onset: 25-80-0385OdzgszjeTwcopfvi codes; unclassified (20 sources)Ex-tobacco user; Translations: [Other specified personal risk factors, not elsewhere classified]Onset: 08-14-2023 Resolved: 115504-49-6206DzvtnsujCakiadzl codes; unclassified (17 sources)Unspecified donor, other blood; Translations: [Other blood donors] Onset: 747988-56-8814HkzebopoImiwbnwkn and history of mental health and substance abuse codes (20 sources)Personal history of nicotine dependence; Translations: [Ex-smoker] Onset: 88-98-4218LbpistjrQizrvnk on above:quit 1972;Unclassified (12 sources)Patient status finding; Translations: [Patient new to provider] Unclassified (2 sources)Patient encounter ckyjqe52-11-3440 Results Test NameValueInterpretationReference RangeFacilityXR CHEST 2 VIEWSon 04-27-2025 XR CHEST 2 VIEWSEXAMINATION/TECHNIQUE: XR CHEST 2 VIEWS HISTORY: Cough. COMPARISON: 10/12/2023. RESULT: No consolidation. No pleural effusion. No pneumothorax. Chronic elevation right hemidiaphragm, unchanged. Stable cardiomediastinal silhouette. No acute osseous findings. IMPRESSION: No acute radiographic findings. ELECTRONICALLY SIGNED BY: Simeon Melendez MDNormalNot AvailableXR Chest 2 Views on 04-27-2025 No acute radiographic findings. ELECTRONICALLY SIGNED BY: Simeon Melendez MDIMAGINGEXAMINATION/TECHNIQUE: XR CHEST 2 VIEWS HISTORY: Cough. COMPARISON: 10/12/2023. RESULT: No consolidation. No pleural effusion. No pneumothorax. Chronic elevation right hemidiaphragm, unchanged. Stable cardiomediastinal silhouette. No acute osseous findings. Simeon Brooke MD - 04/27/2025 EXAMINATION/TECHNIQUE: XR CHEST 2 VIEWS HISTORY: Cough. COMPARISON: 10/12/2023. RESULT: No consolidation. No pleural effusion. No pneumothorax. Chronic elevation right hemidiaphragm, unchanged. Stable cardiomediastinal silhouette. No acute osseous findings. IMPRESSION: No acute radiographic findings. ELECTRONICALLY SIGNED BY: Simeon Melendez MD [facility] HealthcareRadiology Study observation (narrative)[facility] HospitalXR Chest 2 ViewsOrdered By: Simeon Melendez on 84-69-7993EZVZPershing Memorial Hospital Work Phone: laboratory - Microbiology and Antimicrobial susceptibilityon [id number]-CoV-2 (COVID-19) RNA VASYL+probe Ql (Unsp spec) NegativePershing Memorial HospitalNo Panel Informationon [id number] ANegativeNOMS HealthcareFLU BNegativeNOBarnes-Jewish HospitalNOAK HealthcareCT ABDOMEN PELVIS WO IV CONTRASTon [id number] ABDOMEN PELVIS WO IV CONTRASTEXAM: CT ABDOMEN PELVIS WO IV CONTRAST History: Right flank pain Technique: Multiple contiguous axial images were obtained of the abdomen and pelvis from the level of the lung bases through the ischial tuberosities without contrast. Multiplanar reformats were obtained. All CT scans at this facility use dose modulation, iterative reconstruction, and/or weight based dosing when appropriate to reduce radiation dose to as low as reasonably achievable. Comparison: None available Findings: Bilateral lung base scarring and/or atelectasis. Coronary artery calcifications are identified. Lack of intravenous contrast precludes optimal evaluation of the abdominal and pelvic viscera. Hepatic steatosis. Tiny calcifications of the liver and spleen likely represent sequela of prior granulomatous disease. The unenhanced stomach, pancreas, gallbladder, and left adrenal gland appear within normal limits. A 9 mm right adrenal nodule demonstrates average Hounsfield units of approximately 6,compatible with adenoma. No obstructing urinary tract calculi or hydronephrosis. Tiny nonobstructing calculus of the inferior pole of the right kidney. Bilateral renal cortical and parapelvic cysts appear simple. Nonspecificbilateral perinephric stranding. The urinary bladder is poorly distended and demonstrates wall thickening. The prostate is enlarged measuring approximately 6 x 4.5 x 5 cm. Small bilateral fat-containing inguinal hernias. Abdominal aorta is nonaneurysmal. Atherosclerotic calcification of the abdominal aorta. No retroperitoneal or abdominal/pelvic lymphadenopathy. No small bowel obstruction. Colonic diverticuli are identified. No overt colonic mass or pericolonic inflammation. Appendix is within normal limits. No free fluid or free air. No acute osseous abnormality. IMPRESSION: Wall thickening of the urinary bladder may be due to cystitis or underdistention. Nonspecific bilateral perinephric stranding is likely chronic unless the patient has signs/symptomsof pyelonephritis. No obstructing urinary tract calculi or hydronephrosis. Tiny nonobstructing right renal calculus. Enlarged prostate. Hepatic steatosis. Colonic diverticulosis without diverticulitis. ELECTRONICALLY SIGNED BY: Jessenia Conde DONormalNot AvailableUrinalysis macro (dipstick) panel (U)on 58-71-0004Djfjcmwnm, UANegativeNegative - 4(70) +++ mg/dL NOMS HealthcareBlood, UANegativeNegative - 50 Maxim/mcLNOMS HealthcareClarity, UA CloudyNOMS HealthcareColor, UAStrawNOMS HealthcareGlucose, UANegativeNegative - 2000(110) ++++ mg/dLNOMS HealthcareKetones, UANegativeNegative - 160(16) ++++ mg/dLNOMS HealthcareLeukocytes, UANegativeNegative - 500+++ Chandan/mcLNOMS HealthcareNitrite, UANegativeNegative - PositiveNOMS HealthcarepH, UA65 - 9NOMS HealthcareProtein, UANegativeNegative - 2000(20) ++++ mg/dLNOMS HealthcareSpec Grav, UA0.011 - 1.03NOMS HealthcareUrobilinogen, UA0.20.2 - 12 mg/dLNOMS HealthcareNOMS HealthcareBasic Metabolic Panelon 03-72-1772YIU/1.73 sq M.predicted MDRD (S/P/Bld) [Vol rate/Area]mL/min/{1.73_m2}NormalThe [facility]ly [facility] Physician GroupComment on above:Order Comment: FASTINGPerformed By: #### LIPID, BMP ####[facility] [place] [address]XFZ Calcium [Mass/volume] in Serum or PlasmaOrdered By: Misha Chauhan on 03-23-2025 Calcium [Mass/Vol]8.7 mg/dLNormal8.6-10.3FKeenan Private Hospital Comment on above:Order Comment: FASTINGPerformed By: #### LIPID, BMP ####[facility] [place] [address]PFAKagphm dioxide, total [Moles/volume] in Serum or PlasmaOrdered By: Misha Chauhan on 28-98-1521PN6 [Moles/Vol]31.1 mmol/LHigh21.0-31.0C[facility] Shriners HospitalComment on above:Order Comment: FASTINGPerformed By: #### LIPID, BMP ####[facility] [place] [address]IUGOgeuzxns [Moles/volume] in Serum or PlasmaOrdered By: Misha Chauhan on 03-23-2025 Chloride [Moles/Vol]106 mmol/BVivbhq41-963FyrwqeljcCincinnati Shriners Hospital Comment on above:Order Comment: FASTINGPerformed By: #### LIPID, BMP ####[facility] [place] [address]UBM Cholesterol [Mass/volume] in Serum or PlasmaOrdered By: Misha Chauhan on 80-85-9473Yqjlftkguas [Mass/Vol]128 mg/zCWza717-149KjpijugplCincinnati Shriners HospitalComment on above:Chol less than 200 mg/dl low riskChol 201-239 mg/dl borderline riskChol 240 mg/dl and greater high riskOrder Comment: FASTINGResult Comment: Chol less than 200 mg/dl low risk Chol 201-239 mg/dl borderline risk Chol 240 mg/dl and greater high riskPerformed By: #### LIPID, BMP ####[facility] [address] [place], [place] [address]QBIQhkpuudggvj in HDL [Mass/volume] in Serum or PlasmaOrdered By: Misha Chauhan on 03-23-2025 Cholesterol in HDL [Mass/Vol]48 mg/eCVwyasp67-34HukqdsdvnCincinnati Shriners HospitalComment on above:HDL CHOL ATP-III CLASSIFICATION Cardiovascular RiskHDL > or equal to 60 mg/dL LOWHDL < 40 mg/dL HIGHOrder Comment: FASTINGResult Comment: HDL CHOL ATP-III CLASSIFICATION Cardiovascular Risk HDL > or equal to 60 mg/dL LOW HDL < 40 mg/dL HIGHPerformed By: #### LIPID, BMP ####[facility] [address] [place], [place] [address]WCHLarikhpuyjv in LDL Calc [Mass/Vol] Ordered By: Misha Chauhan on 14-28-9572Ovsvelgunzf in LDL [Mass/Vol]63 mg/dL 0-100[facility] Shriners HospitalComment on above:LDL ATP III CLASSIFICATIONLDL less than 100 mg/dL OptimalLDL 100-129 mg/dL Near or above pdontouBLV541-945 mg/dL Borderline highLDL 160-189 mg/dL HighLDL greater than 189 mg/dL Very highCholesterol in VLDL Calc [Mass/Vol]Ordered By: Misha Chauhan on 73-05-5393Akwfkqajiyt in VLDL [Mass/Vol]17 mg/dLCincinnati Shriners HospitalCreatinine [Mass/volume] in Serum or PlasmaOrdered By: Misha Chauhan on 42-27-7954Bcjjrawyzu [Mass/Vol]0.87 mg/dLNormal0.70-1.30C[facility] Shriners HospitalComment on above:Order Comment: FASTINGPerformed By: #### LIPID, BMP ####[address] [address]DUS Glucose [Mass/volume] in Serum or PlasmaOrdered By: Misha Chauhan on 03-23-2025 Glucose [Mass/Vol]102 mg/mAPbft87-807BuhguhazsCincinnati Shriners HospitalComment on above:ADA recommended reference rangeRandom Glucose Reference Range is dependent on time and content of last meal. Glucose of more than 200 mg/dL in a nonstressed, ambulatory subject supports the diagnosisof Diabetes Mellitus.Order Comment: FASTINGResult Comment: Random Glucose Reference Range is dependent on time and content of last meal. Glucose of more than 200 mg/dL in a nonstressed, ambulatory subject supports the diagnosis of Diabetes Mellitus. ADA recommended reference rangePerformed By: #### LIPID, BMP ####[address] [address]NHWMdhga Panelon [id number] Cholesterol,Lotdbvusxm33 mg/dLNormal0-100The [facility] Physician GroupComment on above:Order Comment: FASTINGResult Comment: LDL ATP III CLASSIFICATION LDL less than 100 mg/dL Optimal LDL 100-129 mg/dL Near or above optimal LDL 130-159 mg/dL Borderline high LDL 160-189 mg/dL High LDL greater than 189 mg/dL Very highPerformed By: #### LIPID, BMP ####[address] [address]EWCPusfrbydtnam w/Reflex 86 mg/dLNormal0-149[facility] Physician GroupComment on above:Order Comment: FASTINGResult Comment: TRIG ATP III CLASSIFICATION TRIG less than 150 mg/dL Normal TRIG 150-199 mg/dL Borderline high TRIG 200-500 mg/dL High TRIG greater than 500 mg/dL Very high Standard traceable to the Center for Disease Conrtrol and Prevention (CDC) test method.Performed By: #### LIPID, BMP ####[address] [address]SBWHCMC BBVWOWAPDJI73 mg/dLNormalThe [facility] Physician GroupComment on above:Order Comment: FASTING Performed By: #### LIPID, BMP ####[address] [address]EHZId Panel InformationOrdered By: Misha Chauhan on 86-19-6771Rodkggfrd GFR (CKD-EPI)> 60.0 mL/MinCincinnati Shriners Hospital Pharmacy Creatinine Clearance (ChemN/[facility] HospitalPotassium [Moles/volume] in Serum or PlasmaOrdered By: Misha Chauhan on 03-23-2025 Potassium [Moles/Vol]4.4 mmol/LNormal3.5-5.1FKeenan Private Hospital Comment on above:Order Comment: FASTINGPerformed By: #### LIPID, BMP ####[address] [place], [place] [address]UDVKndmu or plasma anion gap determinationOrdered By: Misha Chauhan on 71-94-2198Izdlv gap [Moles/Vol]8.3 mmol/LNormal6.0-15.0C[facility] Shriners HospitalComment on above:Order Comment: FASTINGPerformed By: #### LIPID, BMP ####[address] [place], [place] [address]JOVWwinl or plasma total cholesterol/high density lipoprotein (HDL) cholesterol mass ratOrdered By: Misha Chauhan on 97-13-2713Ftqwodovnrz.total/Cholesterol in HDL [Mass ratio]2.7 {ratio}Normal<5.0C[facility] Shriners HospitalComment on above:Order Comment: FASTINGResult Comment: PERFORMED BY: [facility] [address] [place] [address] PATHOLOGIST FINANCIAL ANALYST INTERN SHEILA WARD M.D.Performed By: #### LIPID, BMP ####[address] [place], [place] [address]JVBWipntl [Moles/volume] in Serum or PlasmaOrdered By: Misha Chauhan on 91-78-8869Cgzawb [Moles/Vol]141 mmol/L Ttykbj693-965UgfoicxwuCincinnati Shriners HospitalComment on above:Order Comment: FASTINGPerformed By: #### LIPID, BMP ####[address] [place], [place] [address]ZFZQntaljhuuins [Mass/volume] in Serum or Plasma Ordered By: Misha Chauhan on 30-31-5184Vwhvubvkghta [Mass/Vol]86 mg/dL0-149 [facility]ers HospitalComment on above:TRIG ATP III CLASSIFICATIONTRIG less than 150 mg/dL NormalTRIG 150-199 mg/dL Borderline highTRIG 200-500 mg/dL High TRIG greater than 500 mg/dL Very highStandard traceable to the Center for Disease Conrtrol and Prevention (CDC) test method. Urea nitrogen [Mass/volume] in Serum or PlasmaOrdered By: Misha Chauhan on 48-15-0126Bgka nitrogen [Mass/Vol]13 mg/dLNormal03-05C[facility]riners HospitalComment on above:Order Comment: FASTINGPerformed By: #### LIPID, BMP ####[address] [place], [place] [address]DJW PATHOLOGY REQUEST FOR LAB CORPon [id number] REQUEST FOR LAB [facility] HealthcareComment on above:See report. Scanned copy available in EMR.LIPOMA German HospitalNo Panel InformationOrdered By: Ti Ochoa on 64-07-3091Oyvcfrwyaruef Pathology TestSee commentCincinnati Shriners HospitalComment on above:See report. Scanned copy available in EMR.Pathology Request for Lab Corpon [id number] Request for Lab [facility] Physician GroupComment on above:Order Comment: LIPOMAResult Comment: See report. Scanned copy available in EMR. PERFORMED BY: [address] [place] [address] PATHOLOGIST FINANCIAL ANALYST INTERN SHEILA WARD M.D.Performed By: #### PATH TO [facility] ####[address] [place] [address] USAA1C with Estimated Average Glu on 47-87-9405Jaeflxq [Mass/Vol]114 mg/dLNoFormerly [facility] Comment on above:Result Comment: PERFORMED BY: [facility] [address] [place] [address] PATHOLOGIST FINANCIAL ANALYST INTERN SHEILA WARD M.D.Performed By: #### A1C WTH eA ####[address] [place], [place] [address]FUEGgoqydg aminotransferase [Enzymatic activity/volume] in Serum or PlasmaOrdered By: SPENCER ZARATE on 45-97-7257SNF [Catalytic activity/Vol]21 U/LNormal7-52C[facility]riners HospitalComment on above:Performed By: #### CMP, LIPID ####[facility] [place], [place] [address]QYFNtecwxf [Mass/volume] in Serum or Plasma by Bromocresol green (BCG) dye binding methoOrdered By: SPENCER ZARATE on 76-50-3419Aozckdy BCG dye [Mass/Vol]4.2 g/dL3.5-5.7FKeenan Private HospitalAlkaline phosphatase [Enzymatic activity/volume] in Serum or PlasmaOrdered By: SPENCER ZARATE on 37-71-5588WIG [Catalytic activity/Vol]61 U/L Srvtuu58-192RjakddvzfCincinnati Shriners HospitalComment on above:Performed By: #### CMP, LIPID ####[address] [place] [address] USAAspartate aminotransferase [Enzymatic activity/volume] in Serum or Plasma Ordered By: SPENCER ZARATE on 33-74-0128WZC [Catalytic activity/Vol]21 U/LNormal 13-39[facility]riners HospitalComment on above:Performed By: #### FILEMON, LIPID ####[facility] [place], [place] [address]KPD Bilirubin.total [Mass/volume] in Serum or PlasmaOrdered By: SPENCER ZARATE on 22-51-3832Lvqgdmdwj [Mass/Vol]1.4 mg/dLHigh0.3-1.0[facility]riners HospitalComment on above:Samples from patients who have taken Naproxen have shown spurious elevation in Total Bilirubin levels. A metabolite of Naproxen, O- desmethylnaproxen, has been shown to interfere with the Jendrassik-Grof method for measuring Total Bilirubin.Result Comment: Samples from patients who have taken Naproxen have shown spurious elevation in Total Bilirubin levels. A metabolite of Naproxen, O-desmethylnaproxen, has been shown to interfere with the Jendrassik-Grof method for measuring Total Bilirubin.Performed By: #### CMP, LIPID ####[facility] [place], [place] [address]CTCIcafy estimated average glucose determination by estimation from glycated hemoglobinOrdered By: SPENCER ZARATE on 24-20-2789Pohectc glucose Estimated from glycated hemoglobin (Bld) [Mass/Vol] 114 mg/dLCincinnati Shriners HospitalCalcium [Mass/volume] in Serum or PlasmaOrdered By: SPENCER ZARATE on 33-80-2205Phyiwdl [Mass/Vol]8.9 mg/dLNormal 8.6-10.3FKeenan Private HospitalComment on above:Performed By: #### CMP, LIPID ####[address] [place] [address] USACarbon dioxide, total [Moles/volume] in Serum or PlasmaOrdered By: SPENCER ZARATE on 98-35-2377OK7 [Moles/Vol]30.7 mmol/FCrilrs70.0-31.0C[facility]ers HospitalComment on above:Performed By: #### CMP, LIPID ####[address] [place], [place] [address]LSSCricghwp [Moles/volume] in Serum or PlasmaOrdered By: SPENCER ZARATE on 02-16-2025 Chloride [Moles/Vol]106 mmol/AWtglpe66-546XxbdjphhcCincinnati Shriners Hospital Comment on above:Performed By: #### CMP, LIPID ####[address] [address]MJQEycqdeztbcl [Mass/volume] in Serum or PlasmaOrdered By: SPENCER ZARATE on 79-15-5012Ygoboyfkxvh [Mass/Vol]117 mg/dLLow 140-200C[facility]riners HospitalComment on above:Chol less than 200 mg/dl low riskChol 201-239 mg/dl borderline riskChol 240 mg/dl and greater high riskResult Comment: Chol less than 200 mg/dl low risk Chol 201-239 mg/dl borderline risk Chol 240 mg/dl and greater high riskPerformed By: #### CMP, LIPID ####[address] [place], [place] [address]HLUBnylcrfgeiu in HDL [Mass/volume] in Serum or PlasmaOrdered By: SPENCER ZARATE on 02-16-2025 Cholesterol in HDL [Mass/Vol]47 mg/uLAeovwg92-79OdylltcypCincinnati Shriners HospitalComment on above:HDL CHOL ATP-III CLASSIFICATION Cardiovascular RiskHDL > or equal to 60 mg/dL LOWHDL < 40 mg/dL HIGHResult Comment: HDL CHOL ATP-III CLASSIFICATION Cardiovascular Risk HDL > or equal to 60 mg/dL LOW HDL < 40 mg/dL HIGHPerformed By: #### CMP, LIPID ####[address] [place], [place] [address]UFHKqpoudqofiv in LDL Calc [Mass/Vol] Ordered By: SPENECR ZARATE on 30-20-9762Nldddfwahej in LDL [Mass/Vol]51 mg/dL 0-100[facility]riners HospitalComment on above:LDL ATP III CLASSIFICATIONLDL less than 100 mg/dL OptimalLDL 100-129 mg/dL Near or above ixysqlgNXE081-084 mg/dL Borderline highLDL 160-189 mg/dL HighLDL greater than 189 mg/dL Very highCholesterol in VLDL Calc [Mass/Vol]Ordered By: SPENCER ZARATE on 81-35-1293Xmctdoyxayv in VLDL [Mass/Vol]19 mg/dLCincinnati Shriners HospitalComprehensive Metabolic Panelon 17-36-4627Czjgfkx [Mass/Vol]4.2 g/dLNormal 3.5-5.7The [facility] Physician GroupComment on above:Performed By: #### CMP, LIPID ####[address] [place], [place] [address]YZB GFR/1.73 sq M.predicted MDRD (S/P/Bld) [Vol rate/Area]mL/min/{1.73_m2}NormalThe [facility] Physician GroupComment on above:Performed By: #### CMP, LIPID ####[facility] [place], [place] [address]EVS Creatinine [Mass/volume] in Serum or PlasmaOrdered By: SPENCER ZARATE on 29-48-7376Mfiwjnpidg [Mass/Vol]0.86 mg/dLNormal0.70-1.30[facility]ers HospitalComment on above:Performed By: #### CMP, LIPID ####[address] [place], [place] [address]XXXQgafdtzkpb [Mass/volume] in UrineOrdered By: SPENCER ZARATE on 26-77-6913Eubhvrczno (U) [Mass/Vol]167.00 mg/dLCincinnati Shriners HospitalComment on above:No reference range establishedErythrocyte distribution width [Ratio] by Automated countOrdered By: SPENCER ZARATE on 79-79-7373Xzqwwiwymhv distribution width (RBC) [Ratio]15.2 %High12.0-14.8[facility]riners HospitalComment on above:Performed By: #### CBCNO ####[address] [address] USAErythrocytes [#/volume] in Blood by Automated count Ordered By: SPENCER ZARATE on 31-34-2248NDQ (Bld) [#/Vol]5.12 10*6/uLNormal 3.90-5.60[facility]riners HospitalComment on above:Performed By: #### CBCNO ####[address] [address] [place] Glucose [Mass/volume] in Serum or PlasmaOrdered By: SPENCER ZARATE on 02-16-2025 Glucose [Mass/Vol]98 mg/wDMxslxx19-104UycxjpfaoCincinnati Shriners HospitalComment on above:ADA recommended reference rangeRandom Glucose Reference Range is dependent on time and content of last meal. Glucose of more than 200 mg/dL in a nonstressed, ambulatory subject supports the diagnosisof Diabetes Mellitus. Result Comment: Random Glucose Reference Range is dependent on time and content of last meal. Glucose of more than 200 mg/dL in a nonstressed, ambulatory subject supports the diagnosis of Diabetes Mellitus. ADA recommended reference rangePerformed By: #### CMP, LIPID ####[address] [place], [place] [address]ZIGSphlnlggzq [Volume Fraction] of Blood by Automated countOrdered By: SPENCER ZARATE on 02-16-2025 Hematocrit (Bld) [Volume fraction]44.3 %Dhwynb55.8-50.0[facility]riners HospitalComment on above:Performed By: #### CBCNO ####[address] [address] USAHemoglobin A1c/Hemoglobin.total in BloodOrdered By: SPENCER ZARATE on 74-10-5285EmO4v (Bld) [Mass fraction]5.6 %Normal4.3-5.6FKeenan Private HospitalComment on above:Increased risk for diabetes: 5.7 - 6.4diabetes: >6.4glycemic control for adults with diabetes: <7.0Result Comment: Increased risk for diabetes: 5.7 - 6.4 diabetes: >6.4 glycemic control for adults with diabetes: <7.0Performed By: #### A1C WTH eA ####[id number] Hemoglobin [Mass/volume] in BloodOrdered By: SPENCER ZARATE on 02-16-2025 Hemoglobin (Bld) [Mass/Vol]15.0 g/rESmebrz74.0-17.0[facility]ers HospitalComment on above:Performed By: #### CBCNO ####[address] [address] USAHemogram CBC Without Diffon 02-16-2025 Mean Corpuscular HGB Conc34.0 g/vSEtriei65.5-35.6[facility] Comment on above:Performed By: #### CBCNO ####[address] USAWhite Blood Count5.2 [CFU]/mLNormal4.1-10.5 [facility] Physician GroupComment on above:Performed By: #### CBCNO ####[address] [place] Leukocytes [#/volume] corrected for nucleated erythrocytes in Blood by Automated counOrdered By: SPENCER ZARATE on 38-89-8001XMS corrected for nucl RBC Auto (Bld) [#/Vol]5.2 10*3/uL4.1-10.5FKeenan Private HospitalLipid Panelon 24-30-5441NMK Cholesterol,Mdhmfgpnfw45 mg/dLNormal0-100The [facility] Physician [facility] SystemComment on above:Result Comment: LDL ATP III CLASSIFICATION LDL less than 100 mg/dL Optimal LDL 100-129 mg/dL Near or above optimal LDL 130-159 mg/dL Borderline high LDL 160-189 mg/dL High LDL greater than 189 mg/dL Very highPerformed By: #### CMP, LIPID ####[address] [place], [place] [address]XXDRvwvkjiestre w/Reflex 97 mg/dLNormal0-149The [facility] Physician GroupComment on above:Result Comment: TRIG ATP III CLASSIFICATION TRIG less than 150 mg/dL Normal TRIG 150-199 mg/dL Borderline high TRIG 200-500 mg/dL High TRIG greater than 500 mg/dL Very high Standard traceable to the Center for Disease Conrtrol and Prevention (CDC) test method.Performed By: #### CMP, LIPID ####[address] [address]XUNCCFW LAOWWHBNBOU29 mg/dLNormalThe [facility] Physician [facility] SystemComment on above:Performed By: #### CMP, LIPID ####[address] [address]YTD MCH [Entitic mass] by Automated countOrdered By: SPENCER ZARATE on 70-36-7514TWY (RBC) [Entitic mass]29.3 etPryfpu82.5-35.2FKeenan Private Hospital Comment on above:Performed By: #### CBCNO ####[address] [address] [facility] Auto (RBC) [Mass/Vol]Ordered By: SPENCER ZARATE on 23-66-8088YACE (RBC) [Mass/Vol]34.0 g/dL32.5-35.6FKeenan Private HospitalMCV [Entitic volume] by Automated countOrdered By: SPENCER ZARATE on 52-03-7726TDJ (RBC) [Entitic vol]86.4 wTBcbzuu55.5-101C[facility]riners HospitalComment on above:Performed By: #### CBCNO ####[address] [place] [address] USAMicroAlb Creat Ratio,Uon 41-49-7116Fcvfnwqwit, Urine (Random)167.00 mg/dLNormalThe [facility] Physician [facility] SystemComment on above:Result Comment: No reference range establishedPerformed By: #### URMACRERAT ####[address] [place], [place] [address]GFROjewjvlltdhq/Creatinine Ratio7.2 mg/gNormal0.0-30.0The [facility] Physician GroupComment on above:Result Comment: 30-300 mg/g indicates an increased risk for diabetic nephropathy. Greater than 300 mg/g is consistent with clinical nephropathy. (Am. J. Kidney Disease 1995, 25:107) PERFORMED BY: [facility] [address] [place] [address] PATHOLOGIST FINANCIAL ANALYST INTERN SHEILA WARD M.D.Performed By: #### URMACRERAT ####[address] [address]VEDQrorgptdxhgk [Mass/volume] in UrineOrdered By: SPENCER ZARATE on 04-21-2345Bvupalm DL <= 20 mg/L (U) [Mass/Vol]1.2 mg/dLNormal0.0-1.8[facility]riners HospitalComment on above:Performed By: #### URMACRERAT ####[address] [address]QUUPk Panel InformationOrdered By: SPENCER ZARATE on 00-09-7824Oawwgtcdi GFR (CKD-EPI)> 60.0 mL/MinCincinnati Shriners Hospital Pharmacy Creatinine Clearance (ChemN/[facility] HospitalPSA Screen (Yearly Only)on 93-38-7906KPD Screen (Yearly Only)2.300 ng/mLNormal 0.000-4.000The [facility] Physician [facility] SystemComment on above:Order Comment: Is patient <50 yrs? Medicare does not pay <50.: N What is the date of the last PSA Screen?: 02/04/24 Is Medicare the insurance?: N Did you verify eligibility (Dx Time) check TestViewGp: YES TO ALLResult Comment: Serial tumor marker results determined by assays using different manufacturers or methods may not be comparable. [facility] Laboratory gas prover and method: SHEA UNICEL DXI, CHEMILUMINESCENT IMMUNOASSAY. PERFORMED BY: [address] [place] [address] PATHOLOGIST FINANCIAL ANALYST INTERN SHEILA WARD M.D.Performed By: #### PSAS #### [place] [id number] USAPlatelet mean volume [Entitic volume] in Blood by Automated countOrdered By: SPENCER ZARATE on 96-58-4810Dlwzzxoc mean volume (Bld) [Entitic vol]10.0 fLNormal6.6-10.1FKeenan Private HospitalComment on above:Result Comment: PERFORMED BY: [address] [place] [address] PATHOLOGIST FINANCIAL ANALYST INTERN SHEILA WARD M.D.Performed By: #### CBCNO ####[place] [id number] USAPlatelets [#/volume] in Blood by Automated countOrdered By: SPENCER ZARATE on 82-77-2667Toqftwcgc (Bld) [#/Vol] 120 10*3/cGLhx175-789JokqltbteCincinnati Shriners HospitalComment on above:Performed By: #### CBCNO ####[address] [address] USAPotassium [Moles/volume] in Serum or PlasmaOrdered By: SPENCER ZARATE on 49-76-7645Jqzihohbi [Moles/Vol]4.5 mmol/LNormal3.5-5.1FKeenan Private HospitalComment on above:Performed By: #### CMP, LIPID ####[place] [id number] specific Ag [Mass/volume] in Serum or PlasmaOrdered By: SPENCER ZARATE on 72-90-9089Zsertlzm specific Ag [Mass/Vol]2.300 ng/mL0.000-4.000[facility] Comment on above:Serial tumor marker results determined by assays using different manufacturers or methods may not be comparable.[facility] gas prover and method:SHEA UNICEL DXI, CHEMILUMINESCENT IMMUNOASSAY.Protein [Mass/volume] in Serum or PlasmaOrdered By: SPENCER ZARATE on 61-06-5854Phxoyls [Mass/Vol]5.9 g/dLLow6.4-8.9C[facility] Shriners HospitalComment on above: Performed By: #### CMP, LIPID ####[place] [id number] [place], [place] [address]COKBfaww globulin measurement by calculation (mass/volume)Ordered By: SPENCER ZARATE on 38-62-3073Fizqfyin (S) [Mass/Vol]1.7 g/dLNormalCincinnati Shriners HospitalComment on above:Performed By: #### CMP, LIPID ####[address] [address] USASerum or plasma albumin/globulin mass ratioOrdered By: SPENCER ZARATE on 83-36-9780Kjyxkxq/Globulin [Mass ratio]2.5 {ratio}NormalCincinnati Shriners HospitalComment on above:Performed By: #### CMP, LIPID ####[address] [address]NVEYdhok or plasma anion gap determinationOrdered By: SPENCER ZARATE on 28-17-9759Rjtdk gap [Moles/Vol] 7.8 mmol/LNormal6.0-15.0C[facility] Shriners HospitalComment on above: Performed By: #### CMP, LIPID ####[address] [address]MMOWmagi or plasma total cholesterol/high density lipoprotein (HDL) cholesterol mass ratOrdered By: SPENCER ZARATE on 02-16-2025 Cholesterol.total/Cholesterol in HDL [Mass ratio]2.5 {ratio}Normal<5.0C[facility] Shriners HospitalComment on above:Result Comment: PERFORMED BY: [facility] [address] [place] [address] PATHOLOGIST FINANCIAL ANALYST INTERN SHEILA WARD M.D.Performed By: #### CMP, LIPID ####[address] [address]ZADNjngad [Moles/volume] in Serum or PlasmaOrdered By: SPENCER ZARATE on 06-99-4503Kkpnfa [Moles/Vol]140 mmol/L Mhistr358-534WxzmbibxoCincinnati Shriners HospitalComment on above:Performed By: #### CMP, LIPID ####[facility] [address] [place], [place] [address]LYKAwsqlykahrud [Mass/volume] in Serum or PlasmaOrdered By: SPENCER ZARATE on 29-33-5551Dmlglikwyblt [Mass/Vol]97 mg/dL0-149C[facility] Shriners HospitalComment on above:TRIG ATP III CLASSIFICATIONTRIG less than 150 mg/dL NormalTRIG 150-199 mg/dL Borderline highTRIG 200-500 mg/dL High TRIG greater than 500 mg/dL Very highStandard traceable to the Center for Disease Conrtrol and Prevention (CDC) test method.Urea nitrogen [Mass/volume] in Serum or Plasma Ordered By: SPENCER ZARATE on 27-10-6909Mxhb nitrogen [Mass/Vol]15 mg/dLNormal 7-25[facility]riners HospitalComment on above:Performed By: #### CMP, LIPID ####[facility] [address] [place], [place] [address]CAJ Urine microalbumin/creatinine mass ratioOrdered By: SPENCER ZARATE on 02-16-2025 Albumin/Creatinine DL <= 20 mg/L (U) [Mass ratio]7.2 mg/g0.0-30.0C[facility] Shriners HospitalComment on above:30-300 mg/g indicates an increased risk for diabetic nephropathy. Greater than 300 mg/g is consistent with clinical nephropathy. (Am. J. Kidney Disease 1995, 25:107)Laboratory - Microbiology and Antimicrobial susceptibilityon 68-91-8503QBOB-CoV-2 (COVID-19) RNA VASYL+probe Ql (Unsp spec)NegativeNOMS HealthcareNo Panel Informationon 14-78-0094RVB APositive NOMS HealthcareFLU BNegativeNOMS HealthcareInterpretation and review of laboratory resultsAbnormalNOMS HealthcareNOAK HealthcareUrology Office/Clinic Noteon 57-80-0285Bjkbnyg Office/Clinic NoteUrology Office/Clinic Note Chief Complaint f/u metabolic workup HPI Staff 79yr old male pt here for f/u with metabolic workup completed 06/19/24. S/p R ESWL 03/16/21, TURP 2010, S/p Cystoscopy with right Ureteroscopy, right Laser Litho, right Stone Basket, right stent placement, S/p cysto with stent removal 04/14/24 Previous Dx: kidney stone, ureteral calculus, right, BPH with urinary obstruction *tamsulosin 0.4mg qd Dysuria: denies Incomplete bladder emptying: denies Hematuria: denies Frequency: denies Urgency: denies Nocturia: 1-2x per night Stream: good stream Leaking: denies Post void dripping: denies Wearing pads/ Depends: denies Urge incontinence: denies Stress incontinence: denies Incontinence without Sensory Awareness: denies Abdominal pain: denies Flank pain: denies Sexual complaints: denies History of Present Illness Tests reviewed: reviewed UA, metabolic workup I have reviewed the previous health record [...] Physical Exam Vitals & Measurements T: 37 ???C(Oral) HR: 77(Peripheral) RR: 18 BP: 150/95 HT: 74 in HT: 187 cm WT: 102 kg WT: 224.871 lb BMI: 29.17 General Appearance: alert, no distress, well nourished, well developed male. Assessment/Plan 1. Kidney stone (N20.0: Calculus of kidney) S/p R ESWL 03/16/21. 24hr urine completed 07/09/23 - Total volume 1980 mL, U24 Na 323 H. Results were given over the phone. KUB 04/24/22 [facility] - several small stones at RLP, measuring up to 4mm. CT AP wo con 02/20/24 [facility] - No R renal stones. Several L renal calculi, predominantly at lower pole measuring 5-6 mm. No hydro. No ureteral dilatation though there is periureteral stranding on R. Noureteral stones. CT AP wo con 03/26/24 [facility] - 5 mm R distal ureteral calculus, ~4cm upstream from R UVJ. Associated upstream mild R hydroureteronephrosis with R perinephric stranding. Multiple additional R renal calculi with largest in RLP measuring 6mm. No distinct L renal calculi. KUB 04/01/24 [facility] - Grouping of S3 stones id'd in distal ureter measuring up to 5 mm. Personal review: R ureteral stone sill present. S/p Cysto, R ureteral dilation, R URS, laser litho of multiple R ureteral calculi, basket extraction from R ureter, R pyeloscopy, R stent placement 04/02/24. Stone analysis - 90% CaOx Beauregard, 10% Di. S/p Cysto, R stent removal 04/14/24. Metabolic workup 06/17/24 - Total urine volume 2680 mL. Urine and serum labs wnl. Taking Urocit-K 15mEq bid. Reviewed metabolic workup results, all wnl. No indication for changes inmanagement. Drinking water and lemonade. Has not had imaging done since procedure in March. Recommended pt to update imaging to evaluate R renal stones previously seen on CT. Pt amenable to proceed.States he would be interested in treatment in the future. -Cont Urocit-K. Pt to call for refills. -Cont adequate hydration -Obtain KUB soon (pt plans to go to [facility] today). Will call pt with results. -Increase Tamsulosin to bid if experiencing pain 2. BPH with urinary obstruction (N40.1: Benign prostatic hyperplasia with lower urinary tract symptoms) S/p TURP 2010. UA today negative for blood and infection. Taking Tamsulosin 0.4mg qd. Not voicing any urinary habit complaints. -Cont Tamsulosin wo changes. Pt to call for refills. Follow-up With When Contact Information STACI HALEY, Jesusita Payan, URL [facility] [address], [place] [phone] Additional Instructions: F/u pending KUB results Patient Education Kidney Stones, Xsco-sv-Wvle I, Vijaya Hastings, personally scribed for Dr. Small on 08/31/2024 10:46:23. . Problem List/Past Medical History Ongoing Benign prostatic hyperplasia (BPH) with post-void dribbling BPH with urinary obstruction Elevated cholesterol Elevated PSA Feeling of incomplete bladder emptying GI bleed Hypertension Kidney stone Left epididymitis Nephrolithiasis Nocturia Retrograde ejaculation Testicle pain Ureteral calculus, right Urine frequency Historical No qualifying data Procedure/Surgical History Arthroscopy of knee (10/02/2019), Lithotripsy (03/03/2010), Cystourethroscopy with ureteroscopy andpyeloscopy (04/18/2006), TURP - Transurethral resection of prostate (more content not included)...[facility] CenterComment on above:Result Comment: Electronically Signed By: Jesusita SMALL MD\.br\Date and Time Signed: 09/23/24 13:20 EST\.br\Electronically Co-Signed By: Vijaya Hastings.br\Date and Time Co-Signed: 08/31/24 10:47 ESTXR LUMBAR SPINE 2-3 VIEWSon 78-49-6245NO LUMBAR SPINE 2-3 VIEWSXR LUMBAR SPINE 2-3 VIEWS Reason for exam: Lower back pain into sacrum/coccyx are for one week, twisting injury Views: 2 Findings: The alignment is normal. Vertebral body height is normal at each level. No fracture or bone destruction is evident. There is anterior spurring and mild disc space narrowing at L2-3. Impression: Mild spondylosis L2-3. Dictated on: 09/18/2024 6:58 AM This report has been electronically signed and approved by the interpreting Radiologist.NormalNot AvailableXR SACRUM COCCYX 2+ VIEWSon 14-99-9733YZ SACRUM COCCYX 2+ VIEWSXR SACRUM COCCYX 2+ VIEWS Reason for exam: Lower back pain into sacrum/coccyx area for one week, twisting injury Technique: Sacrum and coccyx: 4 views Findings: AP and lateral views of the sacrum and coccyx show no evidence of fracture, dislocation or other bony abnormality. IMPRESSION: Normal sacrum and coccyx. Dictated on: 09/18/2024 6:57 AM This report has been electronically signed and approved by the interpreting Radiologist.NormalNot AvailableXR SHOULDER 2+ VIEWS RIGHTon 03-74-9121LA SHOULDER 2+ VIEWS RIGHTXR SHOULDER 2+ VIEWS RIGHT Reason for exam: right anterior shouder pain for one month, no injury Views: 2 Findings: The alignment is normal. No fracture, dislocation or other acute pathology is demonstrated. No soft tissue abnormalities are seen. Impression: Negative exam. Dictated on: 09/18/2024 6:56 AM This report has been electronically signed and approved by the interpreting Radiologist.NormalNot AvailableReminderson 50-74-0492TqwfuirtkEciogcbvs From: Doug Briscoe To: VADIM Small; Sent: 09/03/2024 14:33:02 EST Show up: 08/06/2025 14:32:00 EST Subject: KUB Due Date/Time: 09/03/2025 14:31:[address] order call patient to remind him to get his KUB done prior to appt 09/03/25[facility] Medical CenterArterial Blood Gason 82-69-2628BLS Base Excess-4.4 mmol/LLow-3.0-3.0The [facility] Physician GroupComment on above: Performed By: #### ABG ####Point of Care testing,ABG Frac Inspired M6WiszesAnt Firelands Physician GroupComment on above:Performed By: #### ABG ####Point of Care testing,ABG Oxygen Content7.3 mmol/LNormal6.6-9.7The [facility] Physician GroupComment on above:Performed By: #### ABG ####Point of Care testing,ABG Oxygen Ealrytqylq49.6 %Low95.0-100.0[facility] Physician GroupComment on above:Performed By: #### ABG ####Point of Care testing,ABG KDA630.7 mm[Hg]Normal 35.0-45.0[facility] Physician GroupComment on above:Performed By: #### ABG ####Point of Care testing,ABG PH7.09Holqog3.35-7.45[facility] Physician [facility] Comment on above:Performed By: #### ABG ####Point of Care testing,ABG PO240.8 mm[Hg]Off scale low80.0-100.0The [facility] Physician [facility] SystemComment on above: Performed By: #### ABG ####Point of Care testing,Respiratory [facility]Winter [facility] Physician [facility] SystemComment on above:Result Comment: Critical Value called on: 09/01/2024 at 12:57 PERFORMED BY: [facility] [place] [address] PATHOLOGIST FINANCIAL ANALYST INTERN TEX HAUSER M.D.Performed By: #### ABG ####Point of Care testing,VBG Draw SiteOtherNoFormerly [facility], [facility] Physician [facility] SystemComment on above:Performed By: #### ABG ####Point of Care testing,Arterial Blood GasOrdered By: Misha Chauhan on 50-47-7842FI7 [Moles/Vol]21.2 mmol/LLow23.0-27.0[facility]riners HospitalComment on above:Performed By: #### ABG ####Point of Care testing,HCO3 (Bld) [Moles/Vol]20.1 mmol/LLow23.0-29.0[facility]riners HospitalComment on above:Performed By: #### ABG ####Point of Care testing,No Panel Information Ordered By: Misha Chauhan on 46-92-8857Yyajheta Blood Base Excess-4.4 mmol/LLow -3.0-3.0[facility]riners HospitalArterial Blood Oxygen Content7.3 mmol/L 6.6-9.7FKeenan Private HospitalArterial Blood Oxygen Tmiycucsuz17.6 % Low95.0-100.0[facility]riners HospitalArterial Blood Partial Pressure CO235.7 mm[Hg]35.0-45.0[facility]riners HospitalArterial Blood Partial Pressure O240.8 mm[Hg]Critically low80.0-100.0[facility] Arterial Blood pH7.377.35-7.45[facility]ers HospitalBlood Gas Critical ValueSee commentCincinnati Shriners HospitalComment on above: Critical Value called on: 09/01/2024 at 12:57Blood Gas Sample SiteOtherCincinnati Shriners HospitalFiO2Na %[facility]riners HospitalXR ABDOMEN 1Von 25-92-1829[place]gf[place] [address] XRay Report Signed Patient: JESSENIA PYLE MR#: [id number] : 1945 Acct:[id number] Age/Sex: 79 / M ADM Date: 08/31/24 Loc: RAD Attending Dr: Jesusita Small M.D. Ordering Physician: Jesusita Small M.D. Date of Service: 08/31/24 Procedure(s): XR abdomen 1V Accession Number(s): [id number] cc: CHRIS PIERRE ; Jesusita Small M.D. [place] [address] Patient Name: JESSENIA PYLE MRN: [id number] date: 1945 Sex: M Assigned Patient Location: [facility] Current Patient Location: Accession/Order Number: [id number] Exam Date: 08/31/2024 11:15 Report Date: 09/01/2024 09:15 At the request of: JESUSITA SMALL Procedure: XR abdomen 1V EXAMINATION: XR abdomen 1V HISTORY: Kidney Stones COMPARISON: XR KUB 03/16/2021 FINDINGS: KIDNEY/URETER - RIGHT: No visible renal or ureteral calcifications. KIDNEY/URETER - LEFT: No visible renal or ureteral calcifications. PELVIS: No appreciable ureteral stones. BOWEL: No abnormal dilation or deviation. BONES: No acute abnormality. OTHER: Negative. No abnormal gaseous collections. XR/XR abdomen 1V IMPRESSION: 1. No appreciable urinary tract calculi. Electronically authenticated by: SUE CHARLTON Date: 09/01/2024 09:15 Dictated By: Sue Charlton M.D. Signed By: 09/01/24916 DD/ 4 TD/TT: Accountant Auditor:TBHRadiology, Radiologist, - 09/01/2024 [place] [address] XRay Report Signed Patient: JESSENIA PYLE MR#: [id number] : 1945 Acct:[id number] Age/Sex: 79 / M ADM Date: 08/31/24 Loc: RAD Attending Dr: Jesusita Small M.D. Ordering Physician: Jesusita Small M.D. Date of Service: 08/31/24 Procedure(s): XR abdomen 1V Accession Number(s): [id number] cc: CHRIS IPERRE ; Jesusita Small M.D. [place] [id number] Patient Name: JESSENIA PYLE MRN: [id number] date: 1945 Sex: M Assigned Patient Location: [facility] Current Patient Location: Accession/Order Number: [id number] Exam Date: 08/31/2024 11:15 Report Date: 09/01/2024 09:15 At the request of: JESUSITA SMALL Procedure: XR abdomen 1V EXAMINATION: XR abdomen 1V HISTORY: Kidney Stones COMPARISON: XR KUB 03/16/2021 FINDINGS: KIDNEY/URETER - RIGHT: No visible renal or ureteral calcifications. KIDNEY/URETER - LEFT: No visible renal or ureteral calcifications. PELVIS: No appreciable ureteral stones. BOWEL: No abnormal dilation or deviation. BONES: No acute abnormality. OTHER: Negative. No abnormal gaseous collections. XR/XR abdomen 1V IMPRESSION: 1. No appreciable urinary tract calculi. Electronically authenticated by: SUE CHARLTON Date: 09/01/2024 09:15 Dictated By: Sue Charlton M.D. Signed By: 09/01/24916 DD/ 4 TD/TT: Accountant Auditor: YOHANNES HealthcareRadiology Study observation (narrative)NOMS HealthcareXR ABDOMEN 1VOrdered By: Radiologist Radiology on 62-77-8770HOSL Healthcare Work Phone: ambulatory Visit Summaryon 08-14-8014Hnedfimgxv Visit SummaryAmbulatory Visit Summary JESSENIA PYLE :1945 Visit Date:08/31/2024 Ambulatory Visit Instructions Your Diagnosis Kidney stone BPH with urinary obstruction Tests Performed XR Abdomen 1 View -- Results Pending -- Please visit your patient portal for your results or contact your primary care physician. Your Care Team Attending Physician - Jesusita SMALL MD Primary Care Physician - CHRIS PIERRE DO This Is Your Medications List potassium citrate (potassium citrate 15 mEq oral tablet, extended release) tamsulosin (tamsulosin 0.4 mg Cap) Contact prescribing physician if questions or concerns amlodipine (amLODIPine 5 mg Tab) aspirin (aspirin 81 mg oral tablet) doxazosin (doxazosin 2 mg Tab) ezetimibe (ezetimibe 10 mg Tab) metoprolol multivitamin rosuvastatin (rosuvastatin 40 mg Tab) semaglutide (Ozempic 8 mg/3 mL (2 mg dose) subcutaneous solution) Procedures Performed Arthroscopy of knee (10/02/2019), Lithotripsy (03/03/2010), Cystourethroscopy with ureteroscopy andpyeloscopy (04/18/2006), TURP - Transurethral resection of prostate (04/09/2001), Bone spur of leftfoot, Colonoscopy, Tonsillectomy, Vasectomy. Discharge Vitals Temperature (Oral) 37 ???C Heart Rate (Peripheral) 77 Respiratory Rate 18 Blood Pressure 150/95 Height 187 cm Height 74 in Weight 102 kg Weight 224.871 lb BMI 29.17 What to do next You Need to Schedule the Following Appointments Follow Up with STACI HALEY, Jesusita Payan, URL When: Comments: F/u pending KUB results Where: [facility] [address] , [place] [phone] Medications What How Much When Instructions Unchanged potassium citrate (potassium citrate 15 mEq oral tablet, extended release) 2 Tablets By Mouth 2 times a day Unchanged tamsulosin (tamsulosin 0.4 mg Cap) 1 Capsules By Mouth Every day Unchanged amlodipine (amLODIPine 5 mg Tab) 1 [...] prescribing physician if questions or concerns Unchanged metoprolol 25 Milligram By Mouth Every day Contact prescribing physician [...] Education Materials Kidney Stones Kidney stones are rock-like masses that form inside of the kidneys. Kidneys are organs that make pee (urine). A kidney stone may move into other parts of the urinary tract, including: ??? The tubes that connect the kidneys to the bladder (ureters). ??? The bladder. ??? The tube that carries urine out of the body (urethra). Kidney stones can cause very bad pain and can block the flow of pee. The stone usually leaves your body through your pee. A doctor may need to take out the stone. What are the causes? Kidney stones may be caused by: ??? Too much calcium in the body. This may be caused by too much parathyroid hormone in the blood. ??? Uric acid crystals in the bladder. The body makes uric acid when you eat certain foods. ??? Narrowing of one or both of the ureters. ??? A kidney blockage that you were born with. ??? Past surgery on the kidney or the ureters. What increases the risk? You are more likely to develop this condition if: ??? You have had a kidney stone in the past. ??? Other people in your family have had kidney stones. ??? You do not drink enough water. ??? You eat a diet that is high in protein, salt (sodium), or sugar. ??? You are very (more content not included)...[facility] Basophils Auto (Bld) [#/Vol]Ordered By: Misha Chauhan on 36-14-7700Jrtdpxfpk (Bld) [#/Vol]Automated basophil count0.0-0.2FKeenan Private Hospital Basophils/100 WBC Auto (Bld)Ordered By: Misha Chauhan on 08-28-2024 Basophils/100 WBC (Bld)Automated basophil %.[facility] Blood Urea Nitrogenon 47-67-5364Ldgs nitrogen [Mass/Vol]13 mg/dLNormal7-25The [facility] Physician GroupComment on above:Performed By: #### LIPID, PP, CBC, BUN, CREAT, LYTES ####[facility] [address] [place] [address] [facility] CARE CENTERCarbon dioxide, total [Moles/volume] in Serum or PlasmaOrdered By: Misha Chauhan on 98-23-8595LS8 [Moles/Vol]Carbon dioxide, total [Moles/volume] in Serum or ZhfezxQsiy33.0-31.0[facility]ers HospitalChloride [Moles/volume] in Serum or PlasmaOrdered By: Misha Chauhan on 08-28-2024 Chloride [Moles/Vol]Chloride [Moles/volume] in Serum or Vzocry15-382TtikjgkzrCincinnati Shriners HospitalCholesterol [Mass/volume] in Serum or PlasmaOrdered By: Misha Chauhan on 22-96-0525Nuuzltynikm [Mass/Vol]Cholesterol [Mass/volume] in Serum or WwwmpqLce546-396YcdatglhrCincinnati Shriners HospitalComment on above:Chol less than 200 mg/dl low riskChol 201-239 mg/dl borderline riskChol 240 mg/dl and greater high riskCholesterol in HDL [Mass/volume] in Serum or PlasmaOrdered By: Misha Chauhan on 79-01-7185Pfhiulsqrjv in HDL [Mass/Vol]Serum or plasma high density lipoprotein (HDL) cholesterol rcfvetzdvxt30-52AlfzcwyuaCincinnati Shriners HospitalComment on above:HDL CHOL ATP-III CLASSIFICATION Cardiovascular RiskHDL > or equal to 60 mg/dL LOWHDL < 40 mg/dL HIGHCholesterol in LDL Calc [Mass/Vol] Ordered By: Misha Chauhan on 32-60-4472Hkwnhsslbip in LDL [Mass/Vol]Cholesterol in LDL [Mass/volume] in Serum or Plasma by calculation0-100[facility]riners HospitalComment on above:LDL ATP III CLASSIFICATIONLDL less than 100 mg/dL OptimalLDL 100-129 mg/dL Near or above hcisdlsMHT847-243 mg/dL Borderline highLDL 160-189 mg/dL HighLDL greater than 189 mg/dL Very highCholesterol in VLDL Calc [Mass/Vol]Ordered By: Misha Chauhan on 15-65-1047Tsmlwlowbgk in VLDL [Mass/Vol]Cholesterol in VLDL [Mass/volume] in Serum or Plasma by calculation [facility]ers HospitalCoagulation Profileon 23-34-6155yRYN Coag (Bld) [Time]35.1 rTffvnq00.1-36.5The [facility] Physician GroupComment on above:Result Comment: A hematocrit value greater than 55% may lead to inaccurate results in coagulation testing. Patients having hematocrit values >55% require a special collection tube for coagulation studies. Please contact the laboratory at [phone] for redraw instructions. PERFORMED BY: [facility] [address] [place], [place] [id number] PATHOLOGIST FINANCIAL ANALYST INTERN TEX HAUSER M.D.Performed By: #### LIPID, PP, CBC, BUN, CREAT, LYTES ####[facility] [place] [address] USAINR Coag (PPP) [Relative time]1.0 {INR}NormalThe [facility] Physician GroupComment on above:Result Comment: INR Therapeutic Range A) Pre- and [...] patients with mechanical heart valves: 3 - 4.5Performed By: #### LIPID, PP, CBC, BUN, CREAT, LYTES ####[place] [id number] USAPT Coag (PPP) [Time]11.7 sNormal9.0-12.9The [facility] Physician GroupComment on above:Result Comment: A hematocrit value greater than 55% may lead to inaccurate results in coagulation testing. Patients having hematocrit values >55% require a special collection tube for coagulation studies. Please contact the laboratory at [phone] for redraw instructions.Performed By: #### LIPID, PP, CBC, BUN, CREAT, LYTES ####[place] [address] USAComplete Blood Count Auto Diffon 90-55-8215Yhapiiuem (Bld) [#/Vol]0.0 10*3/uLNormal0.0-0.2The [facility] Physician GroupComment on above:Result Comment: PERFORMED BY: [place] [id number] PATHOLOGIST FINANCIAL ANALYST INTERN TEX HAUSER M.D.Performed By: #### LIPID, PP, CBC, BUN, CREAT, LYTES ####[place] [id number] [place] Basophils/100 WBC (Bld)0.6 %Normal.The [facility] Physician GroupComment on above:Performed By: #### LIPID, PP, CBC, BUN, CREAT, LYTES ####[place] [id number] USAEosinophils (Bld) [#/Vol]0.1 10*3/uLNormal0.0-0.45[facility] Physician GroupComment on above: Performed By: #### LIPID, PP, CBC, BUN, CREAT, LYTES ####[place] [address] USAEosinophils/100 WBC (Bld)1.6 % Normal.The [facility] Physician GroupComment on above:Performed By: #### LIPID, PP, CBC, BUN, CREAT, LYTES ####[place] [address] USAErythrocyte distribution width (RBC) [Ratio]14.8 % Yjryrb70.0-14.8The [facility] Physician GroupComment on above:Performed By: #### LIPID, PP, CBC, BUN, CREAT, LYTES ####[place] [address] USAHematocrit (Bld) [Volume fraction]47.9 %Normal 38.8-50.0The [facility] Physician GroupComment on above:Performed By: #### LIPID, PP, CBC, BUN, CREAT, LYTES ####[place] [address] USAHemoglobin (Bld) [Mass/Vol]16.4 g/wCQxoidk25.0-17.0The [facility] Physician GroupComment on above:Performed By: #### LIPID, PP, CBC, BUN, CREAT, LYTES ####[place] [address] USALymphocytes (Bld) [#/Vol]1.0 10*3/uLNormal1.00-4.8The [facility] Physician GroupComment on above:Performed By: #### LIPID, PP, CBC, BUN, CREAT, LYTES ####[place] [address] [place] Lymphocytes/100 WBC (Bld)18.1 %Normal.The [facility] Physician GroupComment on above:Performed By: #### LIPID, PP, CBC, BUN, CREAT, LYTES ####[place] [address] USAMCH (RBC) [Entitic mass]30.6 vcJyvzkj52.5-35.2The [facility] Physician GroupComment on above: Performed By: #### LIPID, PP, CBC, BUN, CREAT, LYTES ####[place] [address] USAMCV (RBC) [Entitic vol]89.0 fL Aqmzlb43.5-101The [facility] Physician GroupComment on above:Performed By: #### LIPID, PP, CBC, BUN, CREAT, LYTES ####[place] [address] USAMean Corpuscular HGB Conc34.4 g/pHKhnosl09.5-35.6The [facility] Physician GroupComment on above:Performed By: #### LIPID, PP, CBC, BUN, CREAT, LYTES ####[place] [address] USAMonocytes (Bld) [#/Vol]0.5 10*3/uLNormal0.0-0.8The [facility] Physician GroupComment on above:Performed By: #### LIPID, PP, CBC, BUN, CREAT, LYTES ####[place] [address] [place] Monocytes/100 WBC (Bld)9.6 %Normal.The [facility] Physician GroupComment on above:Performed By: #### LIPID, PP, CBC, BUN, CREAT, LYTES ####[place] [address] USANeutrophils (Bld) [#/Vol]3.8 10*3/uLNormal1.8-7.7The [facility] Physician GroupComment on above: Performed By: #### LIPID, PP, CBC, BUN, CREAT, LYTES ####[place] [address] USANeutrophils/100 WBC (Bld)70.1 %Normal.The [facility] Physician GroupComment on above:Performed By: #### LIPID, PP, CBC, BUN, CREAT, LYTES ####[place] [address] USANRBC%0.2 /100{WBC}Normal0-0.5The [facility] Physician GroupComment on above:Performed By: #### LIPID, PP, CBC, BUN, CREAT, LYTES ####[place] [address] [place] Platelet mean volume (Bld) [Entitic vol]9.8 fLNormal6.6-10.1The [facility] Physician GroupComment on above:Performed By: #### LIPID, PP, CBC, BUN, CREAT, LYTES ####[place] [address] [place] Platelets (Bld) [#/Vol]135 10*3/qLPcf925-749Rok [facility] Physician GroupComment on above:Performed By: #### LIPID, PP, CBC, BUN, CREAT, LYTES ####[place] [address] USARBC (Bld) [#/Vol]5.38 10*6/uLNormal3.90-5.60The [facility] Physician GroupComment on above:Performed By: #### LIPID, PP, CBC, BUN, CREAT, LYTES ####[place] [address] USAWBC (Bld) [#/Vol]5.4 10*3/uLNormal 4.1-10.5The [facility] Physician GroupComment on above:Performed By: #### LIPID, PP, CBC, BUN, CREAT, LYTES ####[place] [id number] USACreatinineon 29-00-5430Rydysijytn [Mass/Vol]0.85 mg/dL Normal0.70-1.30The [facility] Physician GroupComment on above:Performed By: #### LIPID, PP, CBC, BUN, CREAT, LYTES ####[place] [id number] USAGFR/1.73 sq M.predicted MDRD (S/P/Bld) [Vol rate/Area]mL/min/{1.73_m2}NormalThe [facility] Physician GroupComment on above: Performed By: #### LIPID, PP, CBC, BUN, CREAT, LYTES ####[place] [address] USACreatinine [Mass/volume] in Serum or PlasmaOrdered By: Misha Chauhan on 76-80-5129Fjasdkdbxe [Mass/Vol] Creatinine [Mass/volume] in Serum or Plasma0.70-1.30[facility]ers HospitalECG 12 lead ECGon 60-50-3964TZM 12 lead [facility] Main [place] [address] [place] [address] Electrocardiograph Report Signed Patient: Jessenia Pyle MR#: [id number] [birth year] : 1945 Acct:[id number] Age/Sex: 79 / M ADM Date: 08/28/24 Loc: PS Room: Type: [facility] Attending Dr: Misha Chauhan MD [...] in Lateral leads Confirmed by [place] [facility]ALE[facility], JETHRO ([id number]) on 08/29/2024 12:45:48 PM Referred By: Chris Pierre Electronically Signed By: JETHRO BERNARDO MD [facility] Transcribed By: MUS Signed By Jethro Bernardo MD, FACC 08/29/24 1245[facility] Physician GroupElectrolyteson 19-25-1458Umpks gap [Moles/Vol]9.5 mmol/LNormal6.0-15.0The [facility] Physician GroupComment on above:Performed By: #### LIPID, PP, CBC, BUN, CREAT, LYTES ####[facility] [place] [address] USAChloride [Moles/Vol] 105 mmol/YRugvdl57-011Cdi [facility] Physician GroupComment on above:Performed By: #### LIPID, PP, CBC, BUN, CREAT, LYTES ####[facility] [place] [id number] USACO2 [Moles/Vol]31.1 mmol/LHigh 21.0-31.0The [facility] Physician GroupComment on above:Performed By: #### LIPID, PP, CBC, BUN, CREAT, LYTES ####[place] [address] [place] [address] USAPotassium [Moles/Vol]4.6 mmol/LNormal3.5-5.1The [facility] Physician GroupComment on above:Performed By: #### LIPID, PP, CBC, BUN, CREAT, LYTES ####[place] [address] [place] [address] USASodium [Moles/Vol]141 mmol/JAxdelg149-888Hte [facility] Physician GroupComment on above:Performed By: #### LIPID, PP, CBC, BUN, CREAT, LYTES ####[place] [address] [place] [address] [place] Eosinophils Auto (Bld) [#/Vol]Ordered By: Misha Chauhan on 08-28-2024 Eosinophils (Bld) [#/Vol]Automated eosinophil count0.0-0.45[facility] HospitalEosinophils/100 WBC Auto (Bld)Ordered By: Misha Chauhan on 24-79-1739Twalqiescdk/100 WBC (Bld)Automated eosinophil %.[facility]ers HospitalErythrocyte distribution width Auto (RBC) [Ratio]Ordered By: Misha Chauhan on 90-95-3987Wgtgvrboyqi distribution width (RBC) [Ratio] Erythrocyte distribution width [Ratio] by Automated count12.0-14.8[facility]ers HospitalHematocrit Auto (Bld) [Volume fraction]Ordered By: Misha Chauhan on 57-06-0650Cvnokollgt (Bld) [Volume fraction]Hematocrit [Volume Fraction] of Blood by Automated count38.8-50.0[facility] Hemoglobin [Mass/volume] in BloodOrdered By: Misha Chauhan on 08-28-2024 Hemoglobin (Bld) [Mass/Vol]Hemoglobin [Mass/volume] in Blood13.0-17.0[facility]riners HospitalINR in Platelet poor plasma by Coagulation assayOrdered By: Misha Chauhan on 58-51-1714WEP Coag (PPP) [Relative time]INR in Platelet poor plasma by Coagulation assayCincinnati Shriners HospitalComment on above:INR Therapeutic Range A) Pre- and Peroperative OAT started two weeks before surgery. NOT HIP SURGERY: 1.5 - 2.5 HIP SURGERY: 2 - 3B) Primary and secondary prevention of venous THROMBOSIS: 2 - 3C) Active venous thrombosis, pulmonary embolismand prevention of recurrent venous thrombosis: 2 - 3D) Preve ntion of arterial thromboembolismincluding patients with mechanical heart valves: 3 - 4.5Leukocytes [#/volume] corrected for nucleated erythrocytes in Blood by Automated counOrdered By: Misha Chauhan on 69-10-8599OWN corrected for nucl RBC Auto (Bld) [#/Vol]Leukocytes [#/volume] corrected for nucleated erythrocytes in Blood by Automated coun4.1-10.5FKeenan Private Hospital Lipid Panelon 87-61-6337Mnzeqjxskde [Mass/Vol]134 mg/dVStx642-167Rek [facility] Physician GroupComment on above:Result Comment: Chol less than 200 mg/dl low risk Chol 201-239 mg/dl borderline risk Chol 240 mg/dl and greater high riskPerformed By: #### LIPID, PP, CBC, BUN, CREAT, LYTES ####[place] [address] [place] [address] USACholesterol in HDL [Mass/Vol]52 mg/sQNrledr95-11Lad [facility] Physician GroupComment on above:Result Comment: HDL CHOL ATP-III CLASSIFICATION Cardiovascular Risk HDL > or equal to 60 mg/dL LOW HDL < 40 mg/dL HIGHPerformed By: #### LIPID, PP, CBC, BUN, CREAT, LYTES ####[place] [address] [place] [address] [facility] Cholesterol.total/Cholesterol in HDL [Mass ratio]2.6 {ratio}Normal<5.0The [facility] Physician GroupComment on above:Result Comment: PERFORMED BY: [facility] [address] [place] [id number] PATHOLOGIST FINANCIAL ANALYST INTERN TEX HAUSER M.D.Performed By: #### LIPID, PP, CBC, BUN, CREAT, LYTES ####[place] [address] [place] [address] USALDL Cholesterol,Xxdtlphnyp07 mg/dLNormal0-100The [facility] Physician GroupComment on above:Result Comment: LDL ATP III CLASSIFICATION LDL less than 100 mg/dL Optimal LDL 100-129 mg/dL Near or above optimal LDL 130-159 mg/dL Borderline high LDL 160-189 mg/dL High LDL greater than 189 mg/dL Very highPerformed By: #### LIPID, PP, CBC, BUN, CREAT, LYTES ####[place] [address] [place] [address] USATriglyceride w/Wrcosl49 mg/dLNormal0-149The [facility] Physician Group Comment on above:Result Comment: TRIG ATP III CLASSIFICATION TRIG less than 150 mg/dL Normal TRIG 150-199 mg/dL Borderline high TRIG 200-500 mg/dL High TRIG greater than 500 mg/dL Very high Standard traceable to the Center for Disease Conrtrol and Prevention (CDC) test method.Performed By: #### LIPID, PP, CBC, BUN, CREAT, LYTES ####[place] [address] [place] [address] [place] VLDL MXBNQCGYXFC27 mg/dLNoFormerly [facility] Physician GroupComment on above: Performed By: #### LIPID, PP, CBC, BUN, CREAT, LYTES ####[place] [address] [place] [address] USALymphocytes Auto (Bld) [#/Vol] Ordered By: Misha Chauhan on 05-80-5584Bsybhomfzfk (Bld) [#/Vol]Lymphocytes [#/volume] in Blood by Automated count1.00-4.8[facility] Lymphocytes/100 WBC Auto (Bld)Ordered By: Misha Chauhan on 08-28-2024 Lymphocytes/100 WBC (Bld)Lymphocytes/100 leukocytes in Blood by Automated count. [facility]ers HospitalMCH Auto (RBC) [Entitic mass]Ordered By: Misha Chauhan on 85-92-8713BMX (RBC) [Entitic mass]MCH [Entitic mass] by Automated count27.5-35.2FKeenan Private HospitalMCHC Auto (RBC) [Mass/Vol]Ordered By: Misha Chauhan on 94-78-2519YDPH (RBC) [Mass/Vol]MCHC [Mass/volume] by Automated count32.5-35.6FKeenan Private HospitalMCV Auto (RBC) [Entitic vol]Ordered By: Misha Chauhan on 13-74-2782UKO (RBC) [Entitic vol]MCV [Entitic volume] by Automated count83.5-101[facility]ers HospitalMonocytes Auto (Bld) [#/Vol]Ordered By: Misha Chauhan on 18-16-5715Cdaefgjen (Bld) [#/Vol]Automated blood monocyte count0.0-0.8[facility] Monocytes/100 WBC Auto (Bld)Ordered By: Misha Chauhan on 08-28-2024 Monocytes/100 WBC (Bld)Automated monocyte %.[facility] Neutrophils Auto (Bld) [#/Vol]Ordered By: Misha Chauhan on 08-28-2024 Neutrophils (Bld) [#/Vol]Neutrophils [#/volume] in Blood by Automated count 1.8-7.7FKeenan Private HospitalNeutrophils/100 WBC Auto (Bld)Ordered By: Misha Chauhan on 85-98-8655Zsvfgnyfbcf/100 WBC (Bld)Automated neutrophil %. [facility] HospitalNo Panel InformationOrdered By: Misha Chauhan on 13-22-6978Jckexqxqd GFR (CKD-EPI)> 60.0 mL/MinCincinnati Shriners HospitalPharmacy Creatinine Clearance (ChemN/[facility] Nucleated erythrocytes [Presence] in Blood by Automated countOrdered By: Misha Chauhan on 77-25-7844Riuabjrdn RBC Auto Ql (Bld)Nucleated erythrocytes [Presence] in Blood by Automated count0-0.5FKeenan Private Hospital Platelet mean volume Auto (Bld) [Entitic vol]Ordered By: Misha Chauhan on 09-60-1423Izffwezn mean volume (Bld) [Entitic vol]Platelet mean volume [Entitic volume] in Blood by Automated count6.6-10.1FKeenan Private Hospital Platelets Auto (Bld) [#/Vol]Ordered By: Misha Chauhan on 86-50-9315Xrgdnhaug (Bld) [#/Vol]Platelets [#/volume] in Blood by Automated aptxoVfk904-285HayytjlygCincinnati Shriners HospitalPotassium [Moles/volume] in Serum or PlasmaOrdered By: Misha Chauhan on 20-84-7729Xapozgmni [Moles/Vol]Potassium [Moles/volume] in Serum or Plasma3.5-5.1FKeenan Private HospitalProthrombin time (PT) Ordered By: Misha Chauhan on 28-46-0932QS Coag (PPP) [Time]Prothrombin time (PT)9.0-12.9[facility]ers HospitalComment on above:A hematocrit value greater than 55% may lead to inaccurate results in coagulation testing. Patientshaving hematocrit values >55% require a special collection tube for coagulation studies. Please contact the laboratory at [phone] for redraw instructions.RBC Auto (Bld) [#/Vol]Ordered By: Misha Chauhan on 84-74-7243HVG (Bld) [#/Vol]Erythrocytes [#/volume] in Blood by Automated count3.90-5.60 [facility] Hospitalerum or plasma anion gap determinationOrdered By: Misha Chauhan on 75-12-8541Snwcz gap [Moles/Vol]Serum or plasma anion gap determination6.0-15.0[facility] Hospitalerum or plasma total cholesterol/high density lipoprotein (HDL) cholesterol mass ratOrdered By: Misha Chauhan on 46-66-5981Mpzrdjlbxtv.total/Cholesterol in HDL [Mass ratio] Serum or plasma total cholesterol/high density lipoprotein (HDL) cholesterol mass rat<5.0[facility] Hospitalodium [Moles/volume] in Serum or PlasmaOrdered By: Misha Chauhan on 79-01-1283Ibnkbh [Moles/Vol]Sodium [Moles/volume] in Serum or Kvoqil228-275QohaqlkdmCincinnati Shriners Hospital Triglyceride [Mass/volume] in Serum or PlasmaOrdered By: Misha Chauhan on 87-54-3515Abfekmqpzsfx [Mass/Vol]Triglyceride [Mass/volume] in Serum or Plasma 0-149[facility]ers HospitalComment on above:TRIG ATP III CLASSIFICATIONTRIG less than 150 mg/dL NormalTRIG 150-199 mg/dL Borderline highTRIG 200-500 mg/dL High TRIG greater than 500 mg/dL Very highStandard traceable to the Center for Disease Conrtrol and Prevention (CDC) test method. Urea nitrogen [Mass/volume] in Serum or PlasmaOrdered By: [facility] Hospitalmitalima on 84-67-7529Rcuk nitrogen [Mass/Vol]Urea nitrogen [Mass/volume] in Serum or Plasma 7-25[facility]ers HospitalWBC Auto (Bld) [#/Vol]Ordered By: [facility] on 20-90-1158BIB (Bld) [#/Vol]Leukocytes [#/volume] in Blood by Automated count4.1-10.5FKeenan Private HospitalaPTT in Platelet poor plasma by Coagulation assayOrdered By: [facility] on 74-73-6370pGVO Coag (PPP) [Time]Activated partial thromboplastin time (aPTT) in platelet poor plasma by coagulation a25.1-36.5FKeenan Private HospitalComment on above:A hematocrit value greater than 55% may lead to inaccurate results in coagulation testing. Patientshaving hematocrit values >55% require a special collection tube for coagulation studies. Please contact the laboratory at [phone] for redraw instructions.Hemoglobin a1c with eagon 54-57-9721Chwpkqp [Mass/Vol]114 mg/dLPershing Memorial HospitalHbA1c (Bld) [Mass fraction]5.6 %4.3 - 5.6 %[facility] Comment on above:Increased risk for diabetes: 5.7 - 6.4 diabetes: >6.4 glycemic control for adults with diabetes: <7.0 [facility] HospitalA1C with Estimated Average Gluon 25-61-8816Lqscxug [Mass/Vol]114 mg/dLNoFormerly [facility] Physician GroupComment on above:Result Comment: PERFORMED BY: [facility] [address] [place] [place] [address] PATHOLOGIST FINANCIAL ANALYST INTERN TEX HAUSER M.D.Performed By: #### CMP, T4F, TSH3, A1C WTH eA, SCAN CBC, LIPID, ADDONUAPLUS #### [facility] [address] [place] [address] JVRRsU8j (Bld) [Mass fraction]5.6 %Normal4.3-5.6The [facility] Physician GroupComment on above:Result Comment: Increased risk for diabetes: 5.7 - 6.4 diabetes: >6.4 glycemic control for adults with diabetes: <7.0Performed By: #### CMP, T4F, TSH3, A1C WTH eA, SCAN CBC, LIPID, ADDONUAPLUS #### [facility] [address] [place] [address] USAAlanine aminotransferase [Enzymatic activity/volume] in Serum or PlasmaOrdered By: Chris Pierre on 04-88-5064NPK [Catalytic activity/Vol]Alanine aminotransferase [Enzymatic activity/volume] in Serum or Plasma7-52[facility] HospitalAlbumin [Mass/volume] in Serum or Plasma by Bromocresol green (BCG) dye binding methoOrdered By: Chris Pierre on 91-29-5956Bkgkmjm BCG dye [Mass/Vol]Albumin [Mass/volume] in Serum or Plasma by Bromocresol green (BCG) dye binding metho3.5-5.7FKeenan Private HospitalAlkaline phosphatase [Enzymatic activity/volume] in Serum or PlasmaOrdered By: Chris Pierre on 94-38-6340NCZ [Catalytic activity/Vol]Alkaline phosphatase [Enzymatic activity/volume] in Serum or Qnipqe03-266PhheimzlmCincinnati Shriners HospitalAppearance of UrineOrdered By: Chris Pierre on 79-46-0847Lyxpkdnsvz (U) Urine appearanceCleMemorial HospitalAspartate aminotransferase [Enzymatic activity/volume] in Serum or PlasmaOrdered By: Chris Pierre on 07-36-6899JCN [Catalytic activity/Vol]Aspartate aminotransferase [Enzymatic activity/volume] in Serum or Pbyuky41-65GpylfyefpCincinnati Shriners Hospital Automated epithelial cells count in urine sediment (number/area)Ordered By: Chris Pierre on 14-44-3214Edagcqpwyw cells Auto (Urine sed) [#/Area]Automated epithelial cells count in urine sediment (number/area)0-2FKeenan Private HospitalAutomated erythrocytes count in urine sediment (number/area) Ordered By: Chris Pierre on 91-48-6366SED Auto (Urine sed) [#/Area] Erythrocytes [#/area] in Urine sediment by Automated count0-4FKeenan Private HospitalAutomated leukocytes count in urine sediment (number/area)Ordered By: Chris Pierre on 31-89-5702ZZA Auto (Urine sed) [#/Area]Leukocytes [#/area] in Urine sediment by Automated count0-4FKeenan Private Hospital Basophils Auto (Bld) [#/Vol]Ordered By: Chris Pierre on 37-00-6209Uwpjhycug (Bld) [#/Vol]Automated basophil count0.0-0.2FKeenan Private Hospital Basophils/100 WBC Auto (Bld)Ordered By: Chris Pierre on 08-18-2024 Basophils/100 WBC (Bld)Automated basophil %.[facility] Bilirubin Test strip Ql (U)Ordered By: Chris Pierre on 68-25-6751Oehatzdcu Ql (U)Bilirubin.total [Presence] in Urine by Test stripNegativeCincinnati Shriners HospitalBilirubin.total [Mass/volume] in Serum or PlasmaOrdered By: Chris Pierre on 04-14-1972Xsjpcwhvq [Mass/Vol]Bilirubin.total [Mass/volume] in Serum or PlasmaHigh0.3-1.0[facility]ers HospitalComment on above: Samples from patients who have taken Naproxen have shown spurious elevation in Total Bilirubin levels. A metabolite of Naproxen, O-desmethylnaproxen, has been shown to interfere with the Jenoneidaik-Grof method for measuring Total Bilirubin.Blood estimated average glucose determination by estimation from glycated hemoglobinOrdered By: Chris Pierre on 18-35-3371Tclmpfp glucose Estimated from glycated hemoglobin (Bld) [Mass/Vol]Glucose mean value [Mass/volume] in Blood Estimated from glycated hemoglobinCincinnati Shriners HospitalCalcium [Mass/volume] in Serum or PlasmaOrdered By: Chris Pierre on 71-88-7335Bliytkp [Mass/Vol]Calcium [Mass/volume] in Serum or Plasma8.6-10.3 [facility]ers HospitalCarbon dioxide, total [Moles/volume] in Serum or PlasmaOrdered By: Chris Pierre on 15-85-7862GZ6 [Moles/Vol]Carbon dioxide, total [Moles/volume] in Serum or Qcjnyy64.0-31.0[facility]ers HospitalChloride [Moles/volume] in Serum or PlasmaOrdered By: Chris Pierre on 05-51-3491Bwndjkyr [Moles/Vol]Chloride [Moles/volume] in Serum or Cwlbby82-006 [facility] HospitalCholesterol [Mass/volume] in Serum or Plasma Ordered By: Chris Pierre on 47-95-6552Jdgptovipsr [Mass/Vol]Cholesterol [Mass/volume] in Serum or Ijvqho036-249YfzjngchqCincinnati Shriners HospitalComment on above:Chol less than 200 mg/dl low riskChol 201-239 mg/dl borderline riskChol 240 mg/dl and greater high riskCholesterol in HDL [Mass/volume] in Serum or PlasmaOrdered By: Chris Pierre on 52-34-6554Cvhrrrutpzs in HDL [Mass/Vol]Serum or plasma high density lipoprotein (HDL) cholesterol raqcnspycfu55-98TabmbkqpiCincinnati Shriners HospitalComment on above:HDL CHOL ATP-III CLASSIFICATION Cardiovascular RiskHDL > or equal to 60 mg/dL LOWHDL < 40 mg/dL HIGHCholesterol in LDL Calc [Mass/Vol]Ordered By: Chris Pierre on 67-67-1302Yeuuvsdirel in LDL [Mass/Vol]Cholesterol in LDL [Mass/volume] in Serum or Plasma by calculation 0-100[facility]riners HospitalComment on above:LDL ATP III CLASSIFICATIONLDL less than 100 mg/dL OptimalLDL 100-129 mg/dL Near or above bvgffxkFWA898-134 mg/dL Borderline highLDL 160-189 mg/dL HighLDL greater than 189 mg/dL Very highCholesterol in VLDL Calc [Mass/Vol]Ordered By: Chris Pierre on 48-00-5388Bzhunymvlwo in VLDL [Mass/Vol]Cholesterol in VLDL [Mass/volume] in Serum or Plasma by calculationCincinnati Shriners HospitalColor Auto (U) Ordered By: Chris Pierre on 02-47-1577Stxvl (U)Color of Urine by AutoYellow [facility]ers HospitalComprehensive Metabolic Panelon 08-18-2024 Albumin [Mass/Vol]4.3 g/dLNormal3.5-5.7The [facility] Physician GroupComment on above:Performed By: #### CMP, T4F, TSH3, A1C WTH eA, SCAN CBC, LIPID, ADDONUAPLUS #### [facility] [address] [place] [address] USAAlbumin/Globulin [Mass ratio]2.0 {ratio}NormalThe [facility]ly [facility] Physician GroupComment on above:Performed By: #### CMP, T4F, TSH3, A1C WTH eA, SCAN CBC, LIPID, ADDONUAPLUS #### [facility] [address] [place] [address] USAALP [Catalytic activity/Vol]70 U/AJparjd44-938Qmv [facility] Physician GroupComment on above:Performed By: #### CMP, T4F, TSH3, A1C WTH eA, SCAN CBC, LIPID, ADDONUAPLUS #### [place] [address] USAALT [Catalytic activity/Vol]38 U/LNormal7-52The [facility] Physician GroupComment on above:Performed By: #### CMP, T4F, TSH3, A1C WTH eA, SCAN CBC, LIPID, ADDONUAPLUS #### [facility] [address] [place] [address] USAAnion gap [Moles/Vol]8.5 mmol/LNormal6.0-15.0The [facility] Physician GroupComment on above:Performed By: #### CMP, T4F, TSH3, A1C WTH eA, SCAN CBC, LIPID, ADDONUAPLUS #### [facility] [address] [place] [address] USAAST [Catalytic activity/Vol]30 U/AKivxmi75-29Dlg [facility] Physician GroupComment on above:Performed By: #### CMP, T4F, TSH3, A1C WTH eA, SCAN CBC, LIPID, ADDONUAPLUS #### [place] [address] USABilirubin [Mass/Vol]1.3 mg/dLHigh0.3-1.0The [facility] Physician GroupComment on above:Result Comment: Samples from patients who have taken Naproxen have shown spurious elevation in Total Bilirubin levels. A metabolite of Naproxen, O-desmethylnaproxen, has been shown to interfere with the Mariam-Mindy method for measuring Total Bilirubin.Performed By: #### CMP, T4F, TSH3, A1C WTH eA, SCAN CBC, LIPID, ADDONUAPLUS #### [place] [address] USACalcium [Mass/Vol]9.5 mg/dLNormal8.6-10.3The [facility] Physician GroupComment on above:Performed By: #### CMP, T4F, TSH3, A1C WTH eA, SCAN CBC, LIPID, ADDONUAPLUS #### [place] [address] USAChloride [Moles/Vol]106 mmol/LQammcg10-047Mnd [facility] Physician GroupComment on above:Performed By: #### CMP, T4F, TSH3, A1C WTH eA, SCAN CBC, LIPID, ADDONUAPLUS #### [place] [address] USACO2 [Moles/Vol]30.3 mmol/JNzgnqj24.0-31.0The [facility] Physician GroupComment on above:Performed By: #### CMP, T4F, TSH3, A1C WTH eA, SCAN CBC, LIPID, ADDONUAPLUS #### [place] [address] USACreatinine [Mass/Vol]0.92 mg/dLNormal0.70-1.30The [facility] Physician GroupComment on above:Performed By: #### CMP, T4F, TSH3, A1C WTH eA, SCAN CBC, LIPID, ADDONUAPLUS #### [place] [id number] USAGFR/1.73 sq M.predicted MDRD (S/P/Bld) [Vol rate/Area] mL/min/{1.73_m2}NormalThe Formerly [facility] Physician GroupComment on above:Performed By: #### CMP, T4F, TSH3, A1C WTH eA, SCAN CBC, LIPID, ADDONUAPLUS #### [facility] [address] [place] [address] USAGlobulin (S) [Mass/Vol]2.2 g/dLNormalThe [facility]ly [facility] Physician GroupComment on above:Performed By: #### CMP, T4F, TSH3, A1C WTH eA, SCAN CBC, LIPID, ADDONUAPLUS #### [facility] [address] [place] [address] USAGlucose [Mass/Vol]113 mg/pOQvct97-270Shf [facility] Physician GroupComment on above:Result Comment: Random Glucose Reference Range is dependent on time and content of last meal. Glucose of more than 200 mg/dL in a nonstressed, ambulatory subject supports the diagnosis of Diabetes Mellitus. ADA recommended reference rangePerformed By: #### CMP, T4F, TSH3, A1C WTH eA, SCAN CBC, LIPID, ADDONUAPLUS #### [place] [address] USAPotassium [Moles/Vol]4.8 mmol/LNormal3.5-5.1The [facility] Physician GroupComment on above:Performed By: #### CMP, T4F, TSH3, A1C WTH eA, SCAN CBC, LIPID, ADDONUAPLUS #### [place] [address] USAProtein [Mass/Vol]6.5 g/dLNormal6.4-8.9The [facility] Physician GroupComment on above:Performed By: #### CMP, T4F, TSH3, A1C WTH eA, SCAN CBC, LIPID, ADDONUAPLUS #### [facility] [address] [place] [address] USASodium [Moles/Vol]140 mmol/TOnvbdc623-600Prs [facility]ly [facility] Physician GroupComment on above:Performed By: #### CMP, T4F, TSH3, A1C WTH eA, SCAN CBC, LIPID, ADDONUAPLUS #### [facility] [address] [place] [address] USAUrea nitrogen [Mass/Vol]15 mg/dLNormal7-25The [facility] Physician GroupComment on above:Performed By: #### CMP, T4F, TSH3, A1C WTH eA, SCAN CBC, LIPID, ADDONUAPLUS #### [facility] [address] [place] [address] USACreatinine [Mass/volume] in Serum or PlasmaOrdered By: Chris Pierre on 57-54-4553Afopvwfzmd [Mass/Vol]Creatinine [Mass/volume] in Serum or Plasma0.70-1.30[facility]riners HospitalDipstick and Microscopicon 96-77-4643Grziihxnwd (U)ClearNormalClearJackson Memorial Hospital Physician GroupComment on above:Order Comment: Name Collection Type:: Clean-Voided MidstreamPerformed By: #### CMP, T4F, TSH3, A1C WTH eA, SCAN CBC, LIPID, ADDONUAPLUS #### [facility] [address] [place] [address] USABacteria,UrineNone SeenNormalNone SeenThe Formerly [facility] Physician GroupComment on above:Order Comment: Name Collection Type:: Clean- Voided MidstreamPerformed By: #### CMP, T4F, TSH3, A1C WTH eA, SCAN CBC, LIPID, ADDONUAPLUS #### [facility] [address] [place] [address] USABilirubin,UrineNegativeNormalNegativeJackson Memorial Hospital Physician GroupComment on above:Order Comment: Name Collection Type:: Clean- Voided MidstreamPerformed By: #### CMP, T4F, TSH3, A1C WTH eA, SCAN CBC, LIPID, ADDONUAPLUS #### [facility] [address] [place] [address] USAColor (U)YellowNormalYellowThe [facility] Comment on above:Order Comment: Name Collection Type:: Clean-Voided Midstream Performed By: #### CMP, T4F, TSH3, A1C WTH eA, SCAN CBC, LIPID, ADDONUAPLUS #### [facility] [address] [place] [address] USAGlucose Ql (U)NormalNormalNormalThe Formerly [facility] Physician GroupComment on above:Order Comment: Name Collection Type:: Clean-Voided MidstreamPerformed By: #### CMP, T4F, TSH3, A1C WTH eA, SCAN CBC, LIPID, ADDONUAPLUS #### [place] [address] USAHyaline Casts,UrineNone SeenNormal0-8The [facility] Physician GroupComment on above:Order Comment: Name Collection Type:: Clean- Voided MidstreamResult Comment: PERFORMED BY: [place] [address] PATHOLOGIST FINANCIAL ANALYST INTERN TEX HAUSER M.D.Performed By: #### CMP, T4F, TSH3, A1C WTH eA, SCAN CBC, LIPID, ADDONUAPLUS #### [place] [address] USAKetones Ql (U)NegativeNormalNegativeThe Formerly [facility] Physician GroupComment on above:Order Comment: Name Collection Type:: Clean- Voided MidstreamPerformed By: #### CMP, T4F, TSH3, A1C WTH eA, SCAN CBC, LIPID, ADDONUAPLUS #### [place] [address] USALeukocyte esterase Test strip Ql (U)NegativeNormalNegative The [facility] Physician GroupComment on above:Order Comment: Name Collection Type:: Clean-Voided MidstreamPerformed By: #### CMP, T4F, TSH3, A1C WTH eA, SCAN CBC, LIPID, ADDONUAPLUS #### [place] [address] USANitrite,UrineNegativeNormalNegativeThe Formerly [facility] Physician GroupComment on above:Order Comment: Name Collection Type:: Clean-Voided MidstreamPerformed By: #### CMP, T4F, TSH3, A1C WTH eA, SCAN CBC, LIPID, ADDONUAPLUS #### [place] [address] USAOccult Blood,UrineNegativeNormalNegativeThe Formerly [facility] Physician GroupComment on above:Order Comment: Name Collection Type:: Clean- Voided MidstreamPerformed By: #### CMP, T4F, TSH3, A1C WTH eA, SCAN CBC, LIPID, ADDONUAPLUS #### [place] [address] USApH (U)6.0 [pH]Normal5.0-9.0The [facility] Comment on above:Order Comment: Name Collection Type:: Clean-Voided Midstream Performed By: #### CMP, T4F, TSH3, A1C WTH eA, SCAN CBC, LIPID, ADDONUAPLUS #### [place] [address] USAProtein,UrineNegativeNormalNegativeThe Formerly [facility] Physician GroupComment on above:Order Comment: Name Collection Type:: Clean-Voided MidstreamPerformed By: #### CMP, T4F, TSH3, A1C WTH eA, SCAN CBC, LIPID, ADDONUAPLUS #### [place] [address] USARBC,UrineNone SeenNormal0-4The [facility] Comment on above:Order Comment: Name Collection Type:: Clean-Voided Midstream Performed By: #### CMP, T4F, TSH3, A1C WTH eA, SCAN CBC, LIPID, ADDONUAPLUS #### [place] [address] USASpecificy [place],Urine1.709Uthyir0.001-1.030The Formerly [facility] Physician GroupComment on above:Order Comment: Name Collection Type:: Clean- Voided MidstreamPerformed By: #### CMP, T4F, TSH3, A1C WTH eA, SCAN CBC, LIPID, ADDONUAPLUS #### [place] [address] USASquamous Epithelial Cell,Urine0 [HPF]Normal0-2The Formerly [facility] Physician GroupComment on above:Order Comment: Name Collection Type:: Clean-Voided MidstreamPerformed By: #### CMP, T4F, TSH3, A1C WTH eA, SCAN CBC, LIPID, ADDONUAPLUS #### [place] [address] USAUrobilinogen,UrineNormalNormalNormalThe Formerly [facility] Physician GroupComment on above:Order Comment: Name Collection Type:: Clean- Voided MidstreamPerformed By: #### CMP, T4F, TSH3, A1C WTH eA, SCAN CBC, LIPID, ADDONUAPLUS #### [facility] [address] [place] [id number] USAWBC,Urine0 [HPF]Normal0-4The [facility] Comment on above:Order Comment: Name Collection Type:: Clean-Voided Midstream Performed By: #### CMP, T4F, TSH3, A1C WTH eA, SCAN CBC, LIPID, ADDONUAPLUS #### [facility] [address] [place] [id number] USAEosinophils Auto (Bld) [#/Vol]Ordered By: Chris Pierre on 19-38-3699Lrqoorhlocn (Bld) [#/Vol]Automated eosinophil count0.0-0.45 [facility] HospitalEosinophils/100 WBC Auto (Bld)Ordered By: Chris Pierre on 48-90-0405Tfqqmtithod/100 WBC (Bld)Automated eosinophil %. [facility]ers HospitalErythrocyte distribution width Auto (RBC) [Ratio]Ordered By: Chris Pierre on 78-88-7927Mbqcbtmzpou distribution width (RBC) [Ratio]Erythrocyte distribution width [Ratio] by Automated count12.0-14.8 [facility]ers HospitalErythrocyte morphology finding [Identifier] in BloodOrdered By: Chris Pierre on 74-06-7177CSH morphology finding Nom (Bld)RBC morphologyNormalCincinnati Shriners HospitalFree T4 (Free Thyroxine)on 53-12-7780Erkp T4 [Mass/Vol]1.01 ng/dLNormal0.61-1.12The Formerly [facility] Physician GroupComment on above:Performed By: #### CMP, T4F, TSH3, A1C WTH eA, SCAN CBC, LIPID, ADDONUAPLUS #### [facility] [address] [place] [id number] USAGlobulin Calc (S) [Mass/Vol]Ordered By: Chris Pierre on 19-93-6072Bysshdbt (S) [Mass/Vol]Serum globulin measurement by calculation (mass/volume)[facility] HospitalGlucose [Mass/volume] in Serum or PlasmaOrdered By: Chris Pierre on 07-99-5616Ebulyar [Mass/Vol]Glucose [Mass/volume] in Serum or VuliwoGuzw44-552MlzmzxotxCincinnati Shriners Hospital Comment on above:ADA recommended reference rangeRandom Glucose Reference Range is dependent on time and content of last meal. Glucose of more than 200 mg/dL in a nonstressed, ambulatory subject supports the diagnosisof Diabetes Mellitus. Glucose [Mass/volume] in Urine by Test stripOrdered By: Chris Pierre on 85-84-9755Wvwxfbm Test strip (U) [Mass/Vol]Glucose [Mass/volume] in Urine by Test stripNormalCincinnati Shriners HospitalHematocrit Auto (Bld) [Volume fraction]Ordered By: Chris Pierre on 20-54-4968Iropgnbprh (Bld) [Volume fraction]Hematocrit [Volume Fraction] of Blood by Automated count38.8-50.0 [facility] HospitalHemoglobin A1c/Hemoglobin.total in BloodOrdered By: Chris Pierre on 09-17-2737TuH0c (Bld) [Mass fraction]Hemoglobin A1c percentage4.3-5.6FKeenan Private HospitalComment on above:Increased risk for diabetes: 5.7 - 6.4diabetes: >6.4glycemic control for adults with diabetes: <7.0Hemoglobin Test strip Ql (U)Ordered By: Chris Pierre on 08-81-2808Cjopadkcuu Ql (U)Hemoglobin [Presence] in Urine by Test stripNegative [facility] HospitalHemoglobin [Mass/volume] in BloodOrdered By: Chris Pierre on 33-18-7075Mfyyhpdxxn (Bld) [Mass/Vol]Hemoglobin [Mass/volume] in Blood13.0-17.0[facility]ers HospitalKetones Test strip Ql (U) Ordered By: Chris Pierre on 22-62-1996Jjjjdsh Ql (U)Ketones [Presence] in Urine by Test stripNegativeCincinnati Shriners HospitalLaboratory - UrinalysisOrdered By: Chris Pierre on 64-07-8786Upcllia casts LM Ql (Urine sed)None seen [LPF]0-8[facility] HospitalLeukocyte esterase [Presence] in Urine by Test stripOrdered By: Chris Pierre on 08-18-2024 Leukocyte esterase Test strip Ql (U)Leukocyte esterase [Presence] in Urine by Test stripNegativeCincinnati Shriners HospitalLeukocytes [#/volume] corrected for nucleated erythrocytes in Blood by Automated counOrdered By: Chris Pierre on 61-11-8669TSR corrected for nucl RBC Auto (Bld) [#/Vol] Leukocytes [#/volume] corrected for nucleated erythrocytes in Blood by Automated coun4.1-10.5FKeenan Private HospitalLipid Panelon 08-18-2024 Cholesterol [Mass/Vol]151 mg/aSRwotwb644-810Ron [facility] Physician GroupComment on above:Result Comment: Chol less than 200 mg/dl low risk Chol 201-239 mg/dl borderline risk Chol 240 mg/dl and greater high riskPerformed By: #### CMP, T4F, TSH3, A1C WTH eA, SCAN CBC, LIPID, ADDONUAPLUS #### [facility] [address] [place] [address] USACholesterol in HDL [Mass/Vol]52 mg/wRFcktng53-09Zzo [facility] Physician GroupComment on above:Result Comment: HDL CHOL ATP-III CLASSIFICATION Cardiovascular Risk HDL > or equal to 60 mg/dL LOW HDL < 40 mg/dL HIGHPerformed By: #### CMP, T4F, TSH3, A1C WTH eA, SCAN CBC, LIPID, ADDONUAPLUS #### [facility] [address] [place] [address] USACholesterol.total/Cholesterol in HDL [Mass ratio]2.9 {ratio}Normal<5.0The Formerly [facility] Physician GroupComment on above:Performed By: #### CMP, T4F, TSH3, A1C WTH eA, SCAN CBC, LIPID, ADDONUAPLUS #### [facility] [address] [place] [address] USALDL Cholesterol,Eutqzizxvw15 mg/dLNormal0-100The Formerly [facility] Physician GroupComment on above:Result Comment: LDL ATP III CLASSIFICATION LDL less than 100 mg/dL Optimal LDL 100-129 mg/dL Near or above optimal LDL 130-159 mg/dL Borderline high LDL 160-189 mg/dL High LDL greater than 189 mg/dL Very highPerformed By: #### CMP, T4F, TSH3, A1C WTH eA, SCAN CBC, LIPID, ADDONUAPLUS #### [facility] [address] [place] [id number] USATriglyceride w/Ymvgau637 mg/dLNormal0-149The [facility]ly [facility] Physician GroupComment on above:Result Comment: TRIG ATP III CLASSIFICATION TRIG less than 150 mg/dL Normal TRIG 150-199 mg/dL Borderline high TRIG 200-500 mg/dL High TRIG greater than 500 mg/dL Very high Standard traceable to the Center for Disease Conrtrol and Prevention (CDC) test method.Performed By: #### CMP, T4F, TSH3, A1C WTH eA, SCAN CBC, LIPID, ADDONUAPLUS #### [facility] [address] [place] [id number] USAVLDL EARDAYRZNEY03 mg/dLNormalThe [facility]ly [facility] Physician GroupComment on above:Performed By: #### CMP, T4F, TSH3, A1C WTH eA, SCAN CBC, LIPID, ADDONUAPLUS #### [facility] [address] [place] [id number] USALymphocytes Auto (Bld) [#/Vol]Ordered By: Chris Pierre on 47-43-2914Zsyznaxigeh (Bld) [#/Vol]Lymphocytes [#/volume] in Blood by Automated count1.00-4.8[facility] HospitalLymphocytes/100 WBC Auto (Bld)Ordered By: Chris Pierre on 88-52-5112Qfqiktgnvci/100 WBC (Bld) Lymphocytes/100 leukocytes in Blood by Automated count.[facility] Auto (RBC) [Entitic mass]Ordered By: Chris Pierre on 32-75-0888MYN (RBC) [Entitic mass]MCH [Entitic mass] by Automated count27.5-35.2 [facility] Auto (RBC) [Mass/Vol]Ordered By: Chris Pierre on 80-20-9232ODVU (RBC) [Mass/Vol]MCHC [Mass/volume] by Automated count 32.5-35.6Fire[facility] Medical CenterMCV Auto (RBC) [Entitic vol]Ordered By: Chris Pierre on 04-77-5655LPU (RBC) [Entitic vol]MCV [Entitic volume] by Automated count83.5-101[facility] HospitalMonocytes Auto (Bld) [#/Vol]Ordered By: Chris Pierre on 44-88-7233Bbzxntorb (Bld) [#/Vol]Automated blood monocyte count0.0-0.8[facility] HospitalMonocytes/100 WBC Auto (Bld)Ordered By: Chris Pierre on 55-04-3715Sfvxawzir/100 WBC (Bld) Automated monocyte %.[facility]ers HospitalNeutrophils Auto (Bld) [#/Vol]Ordered By: Chris Pierre on 36-49-9324Aebolvrwecm (Bld) [#/Vol] Neutrophils [#/volume] in Blood by Automated count1.8-7.7FKeenan Private HospitalNeutrophils/100 WBC Auto (Bld)Ordered By: Chris Pierre on 94-72-9233Wrvfobgllyd/100 WBC (Bld)Automated neutrophil %.[facility]ers HospitalNitrite Test strip Ql (U)Ordered By: Chris Pierre on 08-18-2024 Nitrite Ql (U)Nitrite [Presence] in Urine by Test stripNegativeCincinnati Shriners HospitalNo Panel InformationOrdered By: Chris Pierre on 57-01-4977Dmdwspiar GFR (CKD-EPI)> 60.0 mL/MinCincinnati Shriners Hospital Pharmacy Creatinine Clearance (ChemN/[facility] HospitalNucleated erythrocytes [Presence] in Blood by Automated countOrdered By: Chris Pierre on 84-52-5720Lbjtoemvy RBC Auto Ql (Bld)Nucleated erythrocytes [Presence] in Blood by Automated countHigh0-0.5FKeenan Private HospitalPlatelet adequacy [Presence] in Blood by Light microscopyOrdered By: Chris Pierre on 59-33-7771Qfhelsrzz LM Ql (Bld)Platelet adequacy [Presence] in Blood by Light microscopyNormalCincinnati Shriners HospitalPlatelet mean volume Auto (Bld) [Entitic vol]Ordered By: Chris Pierre on 69-65-0351Oeovknya mean volume (Bld) [Entitic vol]Platelet mean volume [Entitic volume] in Blood by Automated count 6.6-10.1FKeenan Private HospitalPlatelet morphology finding [Identifier] in BloodOrdered By: Chris Pierre on 08-73-7597Bnuvzvjc morphology finding Nom (Bld)Platelet morphology finding [Identifier] in BloodNormal [facility] HospitalPlatelets Auto (Bld) [#/Vol]Ordered By: Chris Pierre on 40-46-2148Moiikxkfg (Bld) [#/Vol]Platelets [#/volume] in Blood by Automated rteilXtk137-464GbbkfhhkkCincinnati Shriners HospitalPotassium [Moles/volume] in Serum or PlasmaOrdered By: Chris Pierre on 08-18-2024 Potassium [Moles/Vol]Potassium [Moles/volume] in Serum or Plasma3.5-5.1FKeenan Private HospitalProtein Test strip (U) [Mass/Vol]Ordered By: Chris Pierre on 57-66-6328Enzghyy (U) [Mass/Vol]Protein [Mass/volume] in Urine by Test stripNegativeCincinnati Shriners HospitalProtein [Mass/volume] in Serum or PlasmaOrdered By: Chris Pierre on 77-69-7403Kjorxro [Mass/Vol]Protein [Mass/volume] in Serum or Plasma6.4-8.9[facility]riners HospitalRBC Auto (Bld) [#/Vol]Ordered By: Chris Pierre on 58-94-6200CPT (Bld) [#/Vol] Erythrocytes [#/volume] in Blood by Automated count3.90-5.60[facility] HospitalCAN AND CBCon 93-63-9229Koxcpfhif (Bld) [#/Vol]0 10*3/uL0.0 - 0.2 10*3/uLNOMS HealthcareBasophils/100 WBC Manual cnt (Syn fld)0.4 %.NOMS HealthcareEosinophils (Bld) [#/Vol]0.1 10*3/uL0.0 - 0.45 10*3/uLNOMS Healthcare Eosinophils/100 WBC Manual cnt (Syn fld)1.3 %.NOMS HealthcareErythrocyte distribution width (RBC) [Ratio]14.7 %12.0 - 14.8 %NOMS HealthcareHematocrit (Bld) [Volume fraction]48.7 %38.8 - 50.0 %NOM HealthcareHemoglobin (Bld) [Mass/Vol]16.7 g/dL13.0 - 17.0 g/dLNOAK HealthcareInterpretation and review of laboratory resultsAbnormalNOMS HealthcareLymphocytes (Bld) [#/Vol]1.3 10*3/uL 1.00 - 4.8 10*3/uLNOMS HealthcareLymphocytes/100 WBC Manual cnt (Syn fld)17.7 %. [facility] CenterH (RBC) [Entitic mass]30.6 pg27.5 - 35.2 pgNOBoone Hospital CenterHC (RBC) [Mass/Vol]34.3 g/dL32.5 - 35.6 g/dLNOAK HealthcareMCV (RBC) [Entitic vol] 89.2 fL83.5 - 101 fLMOUNTAIN POINT MEDICAL CENTER HealthcareMonocytes (Bld) [#/Vol]0.6 10*3/uL0.0 - 0.8 10*3/uLNOMS HealthcareMonocytes+Macrophages/100 WBC Manual cnt (Syn fld)8.1 %. NOM HealthcareNeutrophils (Bld) [#/Vol]5.2 10*3/uL1.8 - 7.7 10*3/uLNOMS HealthcareNeutrophils/100 WBC Manual cnt (Syn fld)72.5 %.NOMS HealthcareNRBC0.6 /100{WBC}High0 - 0.5 /100{WBC}NOMS HealthcarePLATELET ESTIMATEDecreasedNormal NOMS HealthcarePlatelet mean volume (Bld) [Entitic vol]9.9 fL6.6 - 10.1 fLNOAK HealthcarePLATELET MORPHOLOGYNormalNormalNOMS HealthcarePlatelets (Bld) [#/Vol] 146 10*3/pXOpl029 - 450 10*3/uLNOMS HealthcareRBC LM.HPF (Urine sed) [#/Area] 5.46 10*6/uL3.90 - 5.60 10*6/uLNOMS HealthcareRBC morphology finding Nom (Bld) NormalNormalNOMS HealthcareWBC (Bld) [#/Vol]7.2 10*3/uL4.1 - 10.5 10*3/[facility] HealthcareWBC LM.HPF (Urine sed) [#/Area]7.2 10*3/uL4.1 - 10.5 10*3/uLResearch Medical Center HealthcareScan and CBCon 52-58-5371Vaarpdups (Bld) [#/Vol]0.0 10*3/uLNormal0.0-0.2The [facility] Physician GroupComment on above:Performed By: #### CMP, T4F, TSH3, A1C WTH eA, SCAN CBC, LIPID, ADDONUAPLUS #### [facility] [address] [place] [address] USABasophils/100 WBC (Bld)0.4 %Normal.The [facility] Physician GroupComment on above:Performed By: #### CMP, T4F, TSH3, A1C WTH eA, SCAN CBC, LIPID, ADDONUAPLUS #### [facility] [address] [place] [address] USAEosinophils (Bld) [#/Vol]0.1 10*3/uLNormal0.0-0.45The Formerly [facility] Physician GroupComment on above:Performed By: #### CMP, T4F, TSH3, A1C WTH eA, SCAN CBC, LIPID, ADDONUAPLUS #### [facility] [address] [place] [id number] USAEosinophils/100 WBC (Bld)1.3 %Normal.The [facility] Physician GroupComment on above:Performed By: #### CMP, T4F, TSH3, A1C WTH eA, SCAN CBC, LIPID, ADDONUAPLUS #### [facility] [address] [place] [address] USAErythrocyte distribution width (RBC) [Ratio]14.7 %Normal 12.0-14.8The Formerly [facility] Physician GroupComment on above:Performed By: #### CMP, T4F, TSH3, A1C WTH eA, SCAN CBC, LIPID, ADDONUAPLUS #### [facility] [address] [place] [id number] USAHematocrit (Bld) [Volume fraction]48.7 %Iwfsxu97.8-50.0The Formerly [facility] Physician GroupComment on above:Performed By: #### CMP, T4F, TSH3, A1C WTH eA, SCAN CBC, LIPID, ADDONUAPLUS #### [place] [address] USAHemoglobin (Bld) [Mass/Vol]16.7 g/gABpgdvh16.0-17.0The Formerly [facility] Physician GroupComment on above:Performed By: #### CMP, T4F, TSH3, A1C WTH eA, SCAN CBC, LIPID, ADDONUAPLUS #### [place] [address] USALymphocytes (Bld) [#/Vol]1.3 10*3/uLNormal1.00-4.8The Formerly [facility] Physician GroupComment on above:Performed By: #### CMP, T4F, TSH3, A1C WTH eA, SCAN CBC, LIPID, ADDONUAPLUS #### [place] [address] USALymphocytes/100 WBC (Bld)17.7 %Normal.The [facility] Physician GroupComment on above:Performed By: #### CMP, T4F, TSH3, A1C WTH eA, SCAN CBC, LIPID, ADDONUAPLUS #### [address]H (RBC) [Entitic mass]30.6 ucEyzrsk29.5-35.2The Formerly [facility] Physician GroupComment on above:Performed By: #### CMP, T4F, TSH3, A1C WTH eA, SCAN CBC, LIPID, ADDONUAPLUS #### [facility] [address] [place] [address] USAV (RBC) [Entitic vol]89.2 bOLtrfhw04.5-101The Formerly [facility] Physician GroupComment on above:Performed By: #### CMP, T4F, TSH3, A1C WTH eA, SCAN CBC, LIPID, ADDONUAPLUS #### [place] [address] USAMean Corpuscular HGB Conc34.3 g/xRHpjzjb54.5-35.6The Formerly [facility] Physician GroupComment on above:Performed By: #### CMP, T4F, TSH3, A1C WTH eA, SCAN CBC, LIPID, ADDONUAPLUS #### [place] [address] USAMonocytes (Bld) [#/Vol]0.6 10*3/uLNormal0.0-0.8The Formerly [facility] Physician GroupComment on above:Performed By: #### CMP, T4F, TSH3, A1C WTH eA, SCAN CBC, LIPID, ADDONUAPLUS #### [facility] [address] [place] [address] USAMonocytes/100 WBC (Bld)8.1 %Normal.The [facility] Physician GroupComment on above:Performed By: #### CMP, T4F, TSH3, A1C WTH eA, SCAN CBC, LIPID, ADDONUAPLUS #### [place] [address] USANeutrophils (Bld) [#/Vol]5.2 10*3/uLNormal1.8-7.7The Formerly [facility] Physician GroupComment on above:Performed By: #### CMP, T4F, TSH3, A1C WTH eA, SCAN CBC, LIPID, ADDONUAPLUS #### [place] [address] USANeutrophils/100 WBC (Bld)72.5 %Normal.The [facility] Physician GroupComment on above:Performed By: #### CMP, T4F, TSH3, A1C WTH eA, SCAN CBC, LIPID, ADDONUAPLUS #### [facility] [address] [place] [address] USANRBC%0.6 /100{WBC}High0-0.5The [facility] Comment on above:Performed By: #### CMP, T4F, TSH3, A1C WTH eA, SCAN CBC, LIPID, ADDONUAPLUS #### [facility] [address] [place] [address] USAPlatelet EstimateDecreasedNormalNormalThe Firelands Physician GroupComment on above:Performed By: #### CMP, T4F, TSH3, A1C WTH eA, SCAN CBC, LIPID, ADDONUAPLUS #### [facility] [address] [place] [address] USAPlatelet mean volume (Bld) [Entitic vol]9.9 fLNormal 6.6-10.1The Formerly [facility] Physician GroupComment on above:Performed By: #### CMP, T4F, TSH3, A1C WTH eA, SCAN CBC, LIPID, ADDONUAPLUS #### [place] [address] USAPlatelet MorphologyNormalNormalWinter Haven Hospital Physician GroupComment on above:Result Comment: PERFORMED BY: [place] [address] PATHOLOGIST FINANCIAL ANALYST INTERN TEX HAUSER M.D.Performed By: #### CMP, T4F, TSH3, A1C WTH eA, SCAN CBC, LIPID, ADDONUAPLUS #### [place] [address] USAPlatelets (Bld) [#/Vol]146 10*3/zDKlx951-648Bxb [facility] Physician GroupComment on above:Performed By: #### CMP, T4F, TSH3, A1C WTH eA, SCAN CBC, LIPID, ADDONUAPLUS #### [facility] [address] [place] [address] USARBC (Bld) [#/Vol]5.46 10*6/uLNormal3.90-5.60The [facility] Physician GroupComment on above:Performed By: #### CMP, T4F, TSH3, A1C WTH eA, SCAN CBC, LIPID, ADDONUAPLUS #### [facility] [address] [place] [address] USARBC morphology finding Nom (Bld)NormalNormAdventHealth Sebring Physician GroupComment on above:Performed By: #### CMP, T4F, TSH3, A1C WTH eA, SCAN CBC, LIPID, ADDONUAPLUS #### [facility] [address] [id number] USAWBC (Bld) [#/Vol]7.2 10*3/uLNormal4.1-10.5The [facility] Physician GroupComment on above:Performed By: #### CMP, T4F, TSH3, A1C WTH eA, SCAN CBC, LIPID, ADDONUAPLUS #### [facility] [address] [place] [address] USASerum or plasma albumin/globulin mass ratioOrdered By: Chris Pierre on [id number]/Globulin [Mass ratio]Serum or plasma albumin/globulin mass ratioEast [facility] Regional Hospitalerum or plasma anion gap determinationOrdered By: Chris Pierre on [id number] gap [Moles/Vol]Serum or plasma anion gap determination6.0-15.0[facility] Hospitalerum or plasma total cholesterol/high density lipoprotein (HDL) cholesterol mass ratOrdered By: Chris Pierre on 08-18-2024 Cholesterol.total/Cholesterol in HDL [Mass ratio]Serum or plasma total cholesterol/high density lipoprotein (HDL) cholesterol mass rat<5.0[facility] Hospitalodium [Moles/volume] in Serum or PlasmaOrdered By: Chris Pierre on 01-57-3177Ibukgi [Moles/Vol]Sodium [Moles/volume] in Serum or Wbenvt856-610LgkphosqyEast Ohio Regional Hospitalpecific gravity Test strip (U) [Rel density]Ordered By: Chris Pierre on 43-71-1454Dfdbpbdh gravity (U) [Rel density]Specific gravity of Urine by Test strip1.001-1.030[facility]ers HospitalThyroid Stimulating Hormoneon 84-26-5117OGR Qn0.72 m[IU]/LNormal 0.45-5.33The [facility] Physician GroupComment on above:Result Comment: PERFORMED BY: [place] [address] PATHOLOGIST FINANCIAL ANALYST INTERN TEX HAUSER M.D.Performed By: #### CMP, T4F, TSH3, A1C WTH eA, SCAN CBC, LIPID, ADDONUAPLUS #### [facility] [address] [place] [address] USAThyrotropin [Units/volume] in Serum or PlasmaOrdered By: Chris Pierre on 67-71-7577KVE QnThyrotropin [Units/volume] in Serum or Plasma 0.45-5.33[facility] HospitalThyroxine (T4) free [Mass/volume] in Serum or PlasmaOrdered By: Chris Pierre on 59-16-6372Wlrn T4 [Mass/Vol] Thyroxine (T4) free [Mass/volume] in Serum or Plasma0.61-1.12[facility] HospitalTriglyceride [Mass/volume] in Serum or PlasmaOrdered By: Chris Pierre on 17-90-1344Tlyicjwcdqfd [Mass/Vol]Triglyceride [Mass/volume] in Serum or Plasma0-149[facility] HospitalComment on above:TRIG ATP III CLASSIFICATIONTRIG less than 150 mg/dL NormalTRIG 150-199 mg/dL Borderline highTRIG 200-500 mg/dL High TRIG greater than 500 mg/dL Very highStandard traceable to the Center for Disease Conrtrol and Prevention (CDC) test method. Urea nitrogen [Mass/volume] in Serum or PlasmaOrdered By: Chris Pierre on 56-79-4726Rggp nitrogen [Mass/Vol]Urea nitrogen [Mass/volume] in Serum or Plasma 7-25[facility] HospitalUrine bacteria detection by automated methodOrdered By: Chris Pierre on 62-74-9859Udzoiwsk Auto Ql (U)Bacteria [Presence] in Urine by AutomatedNone SeenCincinnati Shriners Hospital Urobilinogen Test strip (U) [Mass/Vol]Ordered By: Chris Pierre on 08-18-2024 Urobilinogen (U) [Mass/Vol]Urobilinogen [Mass/volume] in Urine by Test strip [facility] CenterWBC Auto (Bld) [#/Vol]Ordered By: Chris Pierre on 87-61-5664ZUB (Bld) [#/Vol]Leukocytes [#/volume] in Blood by Automated count4.1-10.5FKeenan Private HospitalpH Test strip (U)Ordered By: Chris Pierre on 01-13-8522vY (U)pH of Urine by Test strip5.0-9.0[facility] HospitalFPG ECG *CARDIOLOGY ONLY*on 44-13-9122CKD ECG *CARDIOLOGY ONLY*[facility] [place] [address] [place] [address] Electrocardiograph Report Signed Patient: Jessenia Pyle MR#: [id number] 209 : 1945 Acct:[id number] Age/Sex: 79 / M ADM Date: 07/31/24 [facility] Room: Type: [facility] Attending Dr: Misha Chauhan MD [...] in Inferior leads Confirmed by Misha Chauhan ([id number]) on 08/08/2024 12:21:33 PM Referred By: Electronically Signed By: Misha Chauhan Transcribed By: MUS Signed By Misha Chauhan MD 08/08/[address] [place] [address] Physician GroupBasophils Auto (Bld) [#/Vol] Ordered By: Jamison Lauren on 55-01-4910Oeqaiomzo (Bld) [#/Vol]Automated basophil count0.0-0.2FKeenan Private HospitalBasophils/100 WBC Auto (Bld)Ordered By: Jamison Lauren on 83-67-6965Awlbprqvq/100 WBC (Bld)Automated basophil %. [facility] HospitalComplete Blood Count Auto Diffon 07-16-2024 Basophils (Bld) [#/Vol]0.0 10*3/uLNormal0.0-0.2[facility] Comment on above:Result Comment: PERFORMED BY: [address] [address] PATHOLOGIST FINANCIAL ANALYST INTERN TEX HAUSER M.D.Performed By: #### CBC ####[place] [address] USABasophils/100 WBC (Bld)0.6 %Normal. The [facility] Physician GroupComment on above:Performed By: #### CBC ####[place] [address] [place] Eosinophils (Bld) [#/Vol]0.0 10*3/uLNormal0.0-0.45The [facility] Physician [facility] Comment on above:Performed By: #### CBC ####[place] [address] USAEosinophils/100 WBC (Bld)0.7 %Normal.The [facility] Physician GroupComment on above:Performed By: #### CBC ####[place] [address] USAErythrocyte distribution width (RBC) [Ratio]14.2 %Cbwhul20.0-14.8The [facility] Physician GroupComment on above:Performed By: #### CBC ####[place] [address] USAHematocrit (Bld) [Volume fraction]47.0 %Gqfwxw60.8-50.0The [facility] Physician GroupComment on above:Performed By: #### CBC ####[place] [address] [place] Hemoglobin (Bld) [Mass/Vol]16.2 g/lRIqtwte30.0-17.0[facility] Physician [facility] Comment on above:Performed By: #### CBC ####[place] [address] USALymphocytes (Bld) [#/Vol]1.0 10*3/uLNormal 1.00-4.8The [facility] Physician GroupComment on above:Performed By: #### CBC ####[place] [address] [place] Lymphocytes/100 WBC (Bld)17.3 %Normal.The [facility] Physician GroupComment on above:Performed By: #### CBC ####[address] StreetMCH (RBC) [Entitic mass]30.4 uqFgnwec06.5-35.2The [facility] Physician GroupComment on above:Performed By: #### CBC ####[address]MCV (RBC) [Entitic vol]88.0 jIYmhsmi91.5-101The [facility] Physician GroupComment on above:Performed By: #### CBC ####[place] [address] USAMean Corpuscular HGB Conc34.5 g/gBZovuje83.5-35.6The [facility] Physician GroupComment on above:Performed By: #### CBC ####[place] [address] USAMonocytes (Bld) [#/Vol]0.5 10*3/uLNormal0.0-0.8The [facility] Physician GroupComment on above:Performed By: #### CBC ####[place] [address] USAMonocytes/100 WBC (Bld)8.3 %Normal.The [facility] Physician GroupComment on above:Performed By: #### CBC ####[place] [address] USANeutrophils (Bld) [#/Vol]4.3 10*3/uLNormal1.8-7.7The [facility] Physician GroupComment on above:Performed By: #### CBC ####[place] [address] USANeutrophils/100 WBC (Bld)73.1 %Normal.The [facility] Physician GroupComment on above:Performed By: #### CBC ####[place] [address] USANRBC%0.1 /100{WBC}Normal0-0.5The [facility] Physician [facility] SystemComment on above: Performed By: #### CBC ####[place] [address] USAPlatelet mean volume (Bld) [Entitic vol]9.9 fLNormal 6.6-10.1The [facility] Physician [facility] SystemComment on above:Performed By: #### CBC ####[place] [address] [place] Platelets (Bld) [#/Vol]153 10*3/eIMfhsbk472-130Gsd [facility] Comment on above:Performed By: #### CBC ####[place] [address] USARBC (Bld) [#/Vol]5.34 10*6/uLNormal3.90-5.60 [facility] Physician [facility] SystemComment on above:Performed By: #### CBC ####[place] [address] USAWBC (Bld) [#/Vol]5.9 10*3/uLNormal4.1-10.5The [facility] Physician [facility] SystemComment on above:Performed By: #### CBC ####[place] [address] USAEosinophils Auto (Bld) [#/Vol]Ordered By: Jamison Lauren on 97-71-2773Dvmarllmcvl (Bld) [#/Vol]Automated eosinophil count0.0-0.45 [facility] HospitalEosinophils/100 WBC Auto (Bld)Ordered By: Jamison Lauren on 80-78-1996Imxxtgcangi/100 WBC (Bld)Automated eosinophil %.[facility] HospitalErythrocyte distribution width Auto (RBC) [Ratio]Ordered By: Jamison Lauren on 06-76-1925Prhvezqkyrn distribution width (RBC) [Ratio] Erythrocyte distribution width [Ratio] by Automated count12.0-14.8[facility] HospitalHematocrit Auto (Bld) [Volume fraction]Ordered By: Jamison Lauren on 50-85-0867Myxfnipbly (Bld) [Volume fraction]Hematocrit [Volume Fraction] of Blood by Automated count38.8-50.0[facility] Hemoglobin [Mass/volume] in BloodOrdered By: Jamison Lauren on 07-16-2024 Hemoglobin (Bld) [Mass/Vol]Hemoglobin [Mass/volume] in Blood13.0-17.0[facility] HospitalLeukocytes [#/volume] corrected for nucleated erythrocytes in Blood by Automated counOrdered By: Jamison Lauren on 57-19-8450VGZ corrected for nucl RBC Auto (Bld) [#/Vol]Leukocytes [#/volume] corrected for nucleated erythrocytes in Blood by Automated coun4.1-10.5FKeenan Private HospitalLymphocytes Auto (Bld) [#/Vol]Ordered By: Jamison Lauren on 23-72-9605Hthpayjxzjn (Bld) [#/Vol]Lymphocytes [#/volume] in Blood by Automated count1.00-4.8[facility] HospitalLymphocytes/100 WBC Auto (Bld) Ordered By: Jamison Lauren on 91-32-8600Lmvjuqsebyh/100 WBC (Bld)Lymphocytes/100 leukocytes in Blood by Automated count.[facility] HospitalMCH Auto (RBC) [Entitic mass]Ordered By: Jamison Lauren on 79-64-0686YBS (RBC) [Entitic mass]MCH [Entitic mass] by Automated count27.5-35.2FKeenan Private HospitalMCHC Auto (RBC) [Mass/Vol]Ordered By: Jamison Lauren on 28-08-6851PTAZ (RBC) [Mass/Vol]MCHC [Mass/volume] by Automated count32.5-35.6FKeenan Private HospitalMCV Auto (RBC) [Entitic vol]Ordered By: Jamison Lauren on 07-16-2024 MCV (RBC) [Entitic vol]MCV [Entitic volume] by Automated count83.5-101[facility] HospitalMonocytes Auto (Bld) [#/Vol]Ordered By: Jamison Lauren on 07-39-8266Pjibbfhgt (Bld) [#/Vol]Automated blood monocyte count0.0-0.8[facility] HospitalMonocytes/100 WBC Auto (Bld)Ordered By: Jamison Lauren on 20-62-4305Xlwbjrrtl/100 WBC (Bld)Automated monocyte %.[facility] HospitalNeutrophils Auto (Bld) [#/Vol]Ordered By: Jamison Lauren on 07-16-2024 Neutrophils (Bld) [#/Vol]Neutrophils [#/volume] in Blood by Automated count 1.8-7.7FKeenan Private HospitalNeutrophils/100 WBC Auto (Bld)Ordered By: Jamison Lauren on 43-10-4365Bvmmbsdeggi/100 WBC (Bld)Automated neutrophil %. [facility] HospitalNucleated erythrocytes [Presence] in Blood by Automated countOrdered By: Jamison Lauren on 60-69-0285Yunxdfkgd RBC Auto Ql (Bld) Nucleated erythrocytes [Presence] in Blood by Automated count0-0.5FKeenan Private HospitalPlatelet mean volume Auto (Bld) [Entitic vol]Ordered By: Jamison Lauren on 85-04-9708Evcrbzru mean volume (Bld) [Entitic vol]Platelet mean volume [Entitic volume] in Blood by Automated count6.6-10.1FKeenan Private HospitalPlatelets Auto (Bld) [#/Vol]Ordered By: Jaimson Lauren on 07-16-2024 Platelets (Bld) [#/Vol]Platelets [#/volume] in Blood by Automated dyiir596-182 [facility] HospitalRBC Auto (Bld) [#/Vol]Ordered By: Jamison Lauren on 59-13-1401AWX (Bld) [#/Vol]Erythrocytes [#/volume] in Blood by Automated count3.90-5.60[facility] HospitalWBC Auto (Bld) [#/Vol]Ordered By: Jamison Lauren on 96-74-1592PHL (Bld) [#/Vol]Leukocytes [#/volume] in Blood by Automated count4.1-10.5FKeenan Private Hospital24 hour urine creatinine measurementOrdered By: Jesusita Small on 56-59-7394Wapcq Creatinine 24 Hour1.36 g/24 hr1.00-2.09[facility]24 hour urine sodium measurement (moles/time)Ordered By: Jesusita Small on 96-34-4202Lfwkan (24H U) [Moles/Time]24 hour urine sodium measurement (moles/time)40-220[facility]24 hour urine uric acid measurement (mass/time)Ordered By: Jesusita Small on 17-96-3357Bqamb (24H U) [Mass/Time]24 hour urine uric acid measurement (mass/time)136.1-771.1FKeenan Private HospitalComment on above:Performed at: [email or web address] [id number] Director: Rc Chavez PhD, Phone: [phone] [Mass/time] in 24 hour UrineOrdered By: Jesusita Small on 77-92-6930Oljhesy (24H U) [Mass/Time] Calcium [Mass/time] in 24 hour Urine0-320[facility] Calcium [Mass/volume] in 24 hour UrineOrdered By: Jesusita Small on 06-19-2024 Calcium (24H U) [Mass/Vol]Calcium [Mass/volume] in 24 hour UrineNot EstabWestern Reserve HospitalCreatinine [Mass/volume] in UrineOrdered By: Jesusita Small on 06-90-6814Segjpulwer (U) [Mass/Vol]Creatinine [Mass/volume] in UrineCincinnati Shriners HospitalComment on above:No reference range establishedMagnesium [Mass/time] in 24 hour UrineOrdered By: Jesusita Small on 85-67-3591Iyolhtjgz (24H U) [Mass/Time]Magnesium [Mass/time] in 24 hour Urine 12.0-293.0[facility]ers HospitalComment on above:Performed at: [email or web address] [id number] Director: Rc Chavez PhD, Phone: [phone] [Mass/volume] in UrineOrdered By: Jesusita Small on 32-78-4239Irtdqevxw (U) [Mass/Vol]Magnesium [Mass/volume] in UrineNot EstabPromedica Flower HospitalNo Panel InformationOrdered By: Jesusita Small on 89-54-9401Hrrep Citric Ifha455 mg/LUndefinedCincinnati Shriners HospitalComment on above:This test was developed and its performance characteristicsdetermined by [employer]. It has not been cleared orapproved by the Food and Drug Administration.Urine Citric Acid 24 Gack848 mg/24 yb783-8886 [facility]ers HospitalComment on above:Performed at: [address] [id number] Director: Lorena Carrillo MD, Phone: [phone] [Mass/time] in 24 hour UrineOrdered By: Jesusita Small on 86-53-2951Zmeqpzw (24H U) [Mass/Time]Oxalate [Mass/time] in 24 hour Urine7-44[facility] HospitalComment on above:Performed at: [address] [id number] Director: Lorena Carrillo MD, Phone: [phone] [Mass/volume] in UrineOrdered By: Jesusita Small on 18-57-6605Kxzqfry (U) [Mass/Vol]Oxalate [Mass/volume] in Urine UndefinedCincinnati Shriners HospitalPhosphate [Mass/time] in 24 hour Urine Ordered By: Jesusita Small on 27-78-1611Pgdncjwhr (24H U) [Mass/Time]Phosphate [Mass/time] in 24 hour Mmxwz169-2775MtmwfpuccCincinnati Shriners HospitalPhosphate [Mass/volume] in UrineOrdered By: Jesusita Small on 35-64-6859Jaopeytmg (U) [Mass/Vol]Phosphate [Mass/volume] in UrineNot Estab.[facility] Hospitalodium [Moles/volume] in UrineOrdered By: Jesusita Small on 06-19-2024 Sodium (U) [Moles/Vol]Sodium [Moles/volume] in UrineCincinnati Shriners HospitalComment on above:No reference range establishedTotal urine volume measurementOrdered By: Jesusita Small on 79-83-5493Yzaqcybr volume (U)Urine volume measurementCincinnati Shriners HospitalUrine collection time durationOrdered By: Jesusita Small on 53-47-5860IT biopsyCT biopsyCincinnati Shriners HospitalUrine uric acid measurement (mass/volume)Ordered By: Jesusita Small on 81-08-4962Sdeab (U) [Mass/Vol]Urine uric acid measurement (mass/volume)Not Estab.[facility] HospitalCalcium [Mass/volume] in Serum or PlasmaOrdered By: Jesusita Small on 14-96-1027Ozmyatr [Mass/Vol]9.3 mg/dL8.6-10.3FKeenan Private HospitalCalcium [Mass/Vol]Calcium [Mass/volume] in Serum or Plasma8.6-10.3FKeenan Private HospitalCarbon dioxide, total [Moles/volume] in Serum or PlasmaOrdered By: Jesusita Small on 01-26-4750BE9 [Moles/Vol]31.8 mmol/LHigh21.0-31.0[facility] HospitalCO2 [Moles/Vol]Carbon dioxide, total [Moles/volume] in Serum or PlasmaHigh 21.0-31.0[facility] HospitalChloride [Moles/volume] in Serum or PlasmaOrdered By: Jesusita Small on 51-75-1960Qnblhbtj [Moles/Vol]104 mmol/L 98-107[facility] HospitalChloride [Moles/Vol]Chloride [Moles/volume] in Serum or Wycgdo74-502NkptvxzqzCincinnati Shriners Hospital Creatinine [Mass/volume] in Serum or PlasmaOrdered By: Jesusita Small on 28-34-5940Xaaduklbqa [Mass/Vol]0.90 mg/dL0.70-1.30[facility] HospitalCreatinine [Mass/Vol]Creatinine [Mass/volume] in Serum or Plasma0.70-1.30 [facility] HospitalNo Panel InformationOrdered By: Jesusita Small on 57-78-8970Uzycwcdhl GFR (CKD-EPI)> 60.0 mL/MinCincinnati Shriners HospitalPharmacy Creatinine Clearance (ChemN/AFKeenan Private Hospital Parathyrin.intact [Mass/volume] in Serum or PlasmaOrdered By: Jesusita Small on 61-39-7574Hscjnozbrk.intact [Mass/Vol]64.1 pg/uA61-01KbhllnahwCincinnati Shriners HospitalParathyrin.intact [Mass/Vol]Parathyrin.intact [Mass/volume] in Serum or Gecacq17-53OmrxslhsdCincinnati Shriners HospitalPotassium [Moles/volume] in Serum or PlasmaOrdered By: Jesusita Small on 76-13-4023Uhcngpkiy [Moles/Vol]4.3 mmol/L 3.5-5.1FKeenan Private HospitalPotassium [Moles/Vol]Potassium [Moles/volume] in Serum or Plasma3.5-5.1FCorey Hospitalerum or plasma anion gap determinationOrdered By: Jesusita Small on 34-15-3473Qimxi gap [Moles/Vol]10.5 mmol/L6.0-15.0[facility] HospitalAnion gap [Moles/Vol]Serum or plasma anion gap determination6.0-15.0[facility] Hospitalodium [Moles/volume] in Serum or PlasmaOrdered By: Jesusita Small on 42-23-9216Xvkxse [Moles/Vol]142 mmol/P940-747JejfnmxrdEast Ohio Regional Hospitalodium [Moles/Vol]Sodium [Moles/volume] in Serum or Lgvgcd540-715TwvynzrfzCincinnati Shriners HospitalUrate [Mass/volume] in Serum or PlasmaOrdered By: Jesusita Small on 69-29-0710Ozcxg [Mass/Vol]4.3 mg/dLLow4.4-7.6FKeenan Private HospitalUrate [Mass/Vol]Urate [Mass/volume] in Serum or PlasmaLow 4.4-7.6FKeenan Private HospitalUrea nitrogen [Mass/volume] in Serum or PlasmaOrdered By: Jesusita Small on 89-40-4039Mojs nitrogen [Mass/Vol]14 mg/dL 03-05[facility] HospitalUrea nitrogen [Mass/Vol]Urea nitrogen [Mass/volume] in Serum or Plasma03-05[facility] HospitalLaboratory - Hematology and Cell countson 31-75-1121MrO2g (Bld) [Mass fraction]5.3 %NOMS HealthcareNo Panel Informationon 30-54-6522AIIZ HealthcareMain OR Intraoperative Recordon 44-64-7916Mozz OR Intraoperative RecordMain OR Intraoperative Record IntraOp Document Type FTURO Summary Primary Physician: Jesusita SMALL MD Finalized Date/Time: 04/14/24 11:47:44 Pt. Name: JESSENIA PYLE/Sex: 1945 Male Med Rec #: [id number] Physician: Jesusita SMALL MD Financial #: [id number] Pt. Type: O Room/Bed: / Admit/Disch: 04/14/24 10:36:45 - Institution: Case Times FTURO Entry 1 Patient Times In Room 04/14/24 11:37:00 Out Room 04/14/24 11:47:00 Procedure Times Start 04/14/24 11:41:00 Stop 04/14/24 11:43:00 Anesthesia Times Last Modified By: Gabino CASTELAN, Alia Donnelly 04/14/24 11:43:43 Case Attendance FTURO Entry 1 Entry 2 Entry 3 Case Attendee STACI HALEY, Jesusita Lloyd RN, Madison Taylor Role Performed Surgeon - Primary [employer] Consultant - Primary Scrub - Primary Time In 04/14/24 11:37:00 04/14/24 11:37:00 04/14/24 11:37:00 Time Out 04/14/24 11:47:00 04/14/24 11:47:00 04/14/24 11:47:00 Procedure CYSTOSCOPY LOCAL WITH CYSTOSCOPY LOCAL WITH CYSTOSCOPY LOCAL WITH STENT REMOVAL(Right) STENT REMOVAL(Right) STENT REMOVAL(Right) Comments Last Modified By: Gabino CASTELAN, Alia Lloyd RN, Alia Lloyd RN, Alia Donnelly 04/14/24 Nati Donnelly 04/14/24 Nati P 04/14/24 11:43:46 11:43:46 11:43:46 Entry 4 Case Attendee COOKIE OSORIO MD Role Performed Staff - Other Time In 04/14/24 11:37:00 Time Out 04/14/24 11:47:00 Procedure CYSTOSCOPY LOCAL WITH STENT REMOVAL(Right) Comments OBSERVING Last Modified By: Gabino CASTELAN, Alia Donnelly 04/14/24 11:43:46 Surgical Procedures FTURO Entry 1 Procedure Description Procedure CYSTOSCOPY LOCAL WITH Modifiers Right STENT REMOVAL Surgeon Description CYSTOSCOPY, RIGHT STENT REMOVAL Primary Procedure Yes Primary Surgeon Jesusita SMALL MD Start 04/14/24 11:41:00 Stop 04/14/24 11:43:00 Anesthesia Type [...] Outcomes Met? Yes PLACEMENT Last Modified By: Alia Lloyd RN 04/14/24 11:41:27 Post-Care Text: The patient is [...] Gabino CASTELAN, Alia Applicable) STACI Greene MD, JO Mcarthur MD, COOKIE Time Out Complete 04/14/24 11:40:00 Allergies [...] Lloyd RN 04/14/24 11:43:45 (more content not included)...[facility] CenterMain OR Preoperative Recordon [id number] OR Preoperative RecordMain OR Preoperative Record Holding Area Document Type FTURO Summary Primary Physician: Jesusita SMALL MD Finalized Date/Time: 04/14/24 11:43:13 Pt. Name: EDENILSON JESSENIA Joya Mcgee/Sex: 1945 Male Med Rec #: [id number] Physician: Jesusita SMALL MD Financial #: [id number] Pt. Type: O Room/Bed: / Admit/Disch: 04/14/24 [...] or her perioperative plan of care The patient'sright to privacy is maintained Surgery Checklist FTURO Entry 1 Patient Birthday, ID Band Procedure Surgical Consent, With Identification: Check, Patient Verification: Patient Participation NPO after Midnight: n/a Personal Items: Dentures Limitations: up ad trent Complaints of Pain: No Skin Integrity Intact, [place], Warm, & Dry Vitals - EU Blood Pressure 171/65 Pulse 77 bpm Respirations 18 br/min SPO2 98 % RN Reviewed Yes Last Modified By: Alia Lloyd RN 04/14/24 11:43:10 Finalized By: Alia Lloyd RN Document Signatures Signed By: Mayco JOHNSONMary Ehsan 04/14/24 11:02 Alia Lloyd RN 04/14/24 11:43NoUniversity [facility] Operative Reporton [id number] ReportOperative Report Patient: JESSENIA PYLE Age: 79 years [...] viewed in entirety and found to be withouttumors or stones, Mild inflammation was seen surrounding the orifice with the stent seen protrudingfrom it, The stent was then grasped and removed in its entirety. Specimens Removed: None. Devices Implanted: None. Postoperative Information Discharge: The patient tolerated the procedure well and was subsequently discharged home.[facility] CenterComment on above:Result Comment: Electronically Signed By: Jesusita SMALL MD\.br\Date and Time Signed: 04/14/24 11:49 EDTCalculus Analysison 03-90-7543Fmaxnpv oxalate dihydrate Infrared spectroscopy (Stone) [Mass fraction]10 %Invalid Interpretation [facility] HospitalComment on above:Performed By: #### [id number] #### [facility] [address] [place] [address]Hbyamhe oxalate monohydrate (Stone) [Mass fraction]90 %Invalid Interpretation [facility] HospitalComment on above:Performed By: #### [id number] #### [facility] [address] [place], [place] [address]Fdwyg (Stone)TanInvalid Interpretation [facility] HospitalComment on above:Performed By: #### [id number] #### [facility] [address] [place], [place] [address]SqknzumtljuJroiluiIfqxgtk Interpretation [facility] HospitalComment on above:Result Comment: Percentage (Represents the % composition)Performed By: #### [id number] #### [facility] [address] [place], [place] [address]Bkniilwoqp:CommentInvalid Interpretation [facility] HospitalComment on above:Result Comment: This test was developed and its performance characteristics determined by [facility]. It has not been cleared or approved by the Food and Drug Administration. Performed at: [address] [id number] PhD Mayito Riveroformed By: #### [id number] #### [facility] [address] [place], [place] [address]Awtmsivipz comment Dameon (Report)CommentInvalid Interpretation [facility] HospitalComment on above:Result Comment: Physician questions regarding Calculi Analysis contact [facility] at: [phone].Performed By: #### [id number] #### [facility] [address] [place], [place] [address]Pvrway Note:CommentInvalid Interpretation [facility] HospitalComment on above:Result Comment: Calculi report will follow via computer, mail or certified hand therapist delivery.Performed By: #### [id number] #### [facility] [address] [place], [place] [address]Nqqg (Stone) [Entitic vol]1k1Adszyls Interpretation [facility] HospitalComment on above:Result Comment: Single piece received. Performed By: #### [id number] #### [facility] [address] [place], [place] [address]Bvqvlmqc source subject NomCommentInvalid Interpretation Code [facility] DaytonComment on above:Result Comment: Not provided Performed By: #### [id number] #### [facility] [address] [place], [place] [address]Vossf PhotoCommentInvalid Interpretation [facility] HospitalComment on above:Result Comment: Photograph will follow under a separate coverPerformed By: #### [id number] #### [facility] [address] [place], [place] [address]Vvsvtz (Stone)29 mgInvalid Interpretation [facility] HospitalComment on above:Performed By: #### [id number] #### [facility] [address], [place] [address]OC Note-Physicianon [id number] Note-PhysicianED Note-Physician Basic Information Time Seen: Stephanie Angulo [...] Pain is associated with nausea and vomiting. Deniesany blood in the urine, dysuria or urinary [...] day(s), # 20 tab(s), Refills(s) 0, Pharmacy: [facility] #[id number], 187, cm, 03/26/24 16:17:00 EDT, Height/Length [...] q8hr, # 12 tab(s), Refills(s) 0, Pharmacy: [facility]/pharmacy #[id number], 187, cm, 03/26/24 16:17:00 EDT, Height/Length [...] SMALL In 3 days 03/29/[address] [place] [address] ticckle (1) [address] [place] [address] ticckle (1) Additional Instructions: Patient Education Dietary Guidelines to Help Prevent Kidney Stones Kidney Stones Attestation Patient was treated and evaluated by the Physician Tilting Head Band Sawyer. The attending physician was in the Emergency Department at all times and supervised care. The case was discussed with the attending physician and diagnostics were reviewed as needed. Problem List/Past Medical History Ongoing Benign prostatic hyperplasia (BPH) with post-void dribbling BPH with urinary obstruction Elevated cholesterol Elevated PSA Feeling of incomplete bladder emptying GI bleed Hypertension Kidney stone (more content not included)...[facility]ja [facility] CenterComment on above: Result Comment: Electronically Signed By: Stephanie Angulo PA-C\.br\Date and Time Signed: 03/26/24 19:33 EDT\.br\Electronically Co-Signed By: Cole King MD\.br\Date and Time Co-Signed: 04/02/24 22:03 EDTAmbulatory Visit Summaryon [id number] Visit SummaryAmbulatory Visit Summary JESSENIA PYLE :1945 Visit Date:04/01/2024 Ambulatory Visit Instructions Your Diagnosis Kidney stone Ureteral calculus, right BPH with urinary obstruction Your Care Team Attending Physician - Jesusita SMALL MD Primary Care Physician - CHRIS PIERRE DO [...] knee (10/02/2019), Lithotripsy (03/03/2010), Cystourethroscopy with ureteroscopy andpyeloscopy (04/18/2006), TURP - Transurethral resection of prostate (04/09/2001), Bone spur of leftfoot, Colonoscopy, Tonsillectomy, Vasectomy. Discharge Vitals Temperature (Temporal Artery) 37 ?C Heart Rate (Peripheral) 85 Respiratory Rate 18 Blood Pressure 137/88 Height 187 cm Height 74 in Weight 102 kg Weight 224.4 lb BMI 29.17 What to do next Scheduled Follow-Up Appointments Saturday 10:30 AM EDT With: Jesusita SMALL MD Where: [facility] [address] [facility] [place] [address]- You Need to Schedule the Following Appointments Follow Up with Jesusita SMALL MD, RITCHIE When: Where: [facility] [address], [place] [phone] Medications What How Much When Instructions Unchanged [...] you for choosing us for your care. sEmerAtrium Health Cabarrusmilana Kennedy Krieger InstituteUrology Office/Clinic Noteon [id number] Office/Clinic NoteUrology Office/Clinic Note Chief Complaint ureteral stone HPI Staff F/u to [facility] ED visit 03/26/24 for right flank pain.CT [...] and history for this patient from Dr. Hamilton external providers. I have reviewed and verified [...] to 4mm. CT AP wo con 02/20/24 FR - No R renal stones. Several L renal calculi, predominantly at lower pole measuring 5-6 mm. No hydro. No ureteral dilatation though there is periureteral stranding on R. Noureteral stones. CT AP wo con 03/26/24 [facility] [...] bid. States he passed a stone after [facility] ER visit. Reviewed imaging results. Likely passed [...] such as stent placement and removal, retrograde urography,and percutaneous nephrostomy were also discussed. The patient also understood that a ureteral stentmay be placed and removal of the stent [...] When Contact Information STACI HALEY, Jesusita Payan, [facility] [address], [place] [phone] Additional Instructions: sched stone procedure on R Patient Education Laser Therapy for Kidney Stones, Care After Laser Therapy for Kidney Stones I, Vijaya Hastings, personally scribed for Dr. Small on 04/01/2024 14:26:28. . Documentation recorded by the scribe, Vijaya Hastings, accurately reflects the services(s) I performed and decisions made by me. Authenticated by Dr. Small on 04/01/2024 14:29:01. Proble (more content not included)...[facility]ja Medical CenterComment on above:Result Comment: Electronically Signed By: Jesusita SMALL MD\.br\Date and Time Signed: 04/01/24 14:29 EDT\.br\Electronically Co-Signed By: Vijaya Hastings\.br\Date and Time Co-Signed: 04/01/24 14:27 EDTBMPon 49-71-3895Uavcm gap [Moles/Vol]14 mmol/LNormal6-16[facility] DaytonComment on above: Performed By: #### [id number] #### [facility] [address], [place] [address]Izzqdyv [Mass/Vol]9.3 mg/dLNormal8.9-11.1FDiley Ridge Medical CenterComment on above:Performed By: #### [id number] #### [facility] [address], [place] [address]Ioenzpvo [Moles/Vol]103 mmol/KCrkliy929-759PidoggKettering Health DaytonComment on above:Performed By: #### [id number] #### [facility] [address], [place] [address]VY0 [Moles/Vol]25 mmol/BYrukrl90-57SfpadiKettering Health Dayton Comment on above:Performed By: #### [id number] #### [facility] [address], [place] [address]Ztbbvbhfek [Mass/Vol]1.2 mg/dLNormal0.5-1.3FDiley Ridge Medical CenterComment on above:Performed By: #### [id number] #### [facility] [address], [place] [address]Qcpwiqz [Mass/Vol]164 mg/ePRlxjos48-878QeopdyKettering Health DaytonComment on above:Performed By: #### [id number] #### [facility] [address], [place] [address]Yxlepmimr [Moles/Vol]3.8 mmol/LNormal3.5-5.3FDiley Ridge Medical CenterComment on above:Performed By: #### [id number] #### [facility] [address], [place] [address]Dfwltp [Moles/Vol]138 mmol/XCjxjbv605-442WanrzoKettering Health DaytonComment on above:Performed By: #### [id number] #### [facility] [address], [place] [address]Dtbk nitrogen [Mass/Vol]17 mg/dLNormal5-21K[facility]tering Health DaytonComment on above:Performed By: #### [id number] #### [facility] [address], [place] [address]Ajuy nitrogen/Creatinine [Mass ratio]14 No ZhzewEefcer34-48 [facility] DaytonComment on above:Performed By: #### [id number] #### [facility] [address], [place] [address]NIK w/ Auto Diffon 09-87-7805Hmlxmbtky/100 WBC (Bld)0.4 %Normal 0.0-2.0K[facility] Health DaytonComment on above:Performed By: #### [id number] #### [facility] [address] [place] [address]Opfjasvoy/Leukocytes Auto (Bld) [Pure # fraction]0.0 E9/LNormal 0.0-0.2FDiley Ridge Medical CenterComment on above:Performed By: #### [id number] #### [facility] [address] [place] [address]Dcgfnytkupe (Bld) [#/Vol]0.0 E9/LNormal0.0-0.5FDiley Ridge Medical CenterComment on above:Performed By: #### [id number] #### [facility] [address] [place] [address]Frpplrscsxa/100 WBC (Bld)0.3 %Normal0.0-8.0[facility] Health DaytonComment on above:Performed By: #### [id number] #### [facility] [address] [place] [address]Iixmbsfpbns distribution width (RBC) [Ratio]15.1 %High10.9-14.2 [facility] DaytonComment on above:Performed By: #### [id number] #### [facility] [address] [place] [address]Wyuscbqvdl (Bld) [Volume fraction]45.7 %Xjokal72.7-49.0K[facility] Health DaytonComment on above:Performed By: #### [id number] #### [facility] [address] [place] [address]Dqezgtljrz (Bld) [Mass/Vol]16.4 g/lOFwprgs11.5-17.5FDiley Ridge Medical CenterComment on above:Performed By: #### [id number] #### [facility] [address] [place] [address]Tfuxnqqjybv (Bld) [#/Vol]0.9 E9/LLow1.0-4.0[facility] Health DaytonComment on above:Performed By: #### [id number] #### [facility] [address] [place] [address]Agvbgxktgjq/100 WBC (Bld)9.5 %Low14.0-50.0[facility] Health DaytonComment on above:Performed By: #### [id number] #### [facility] [address] [place] [address]OZB (RBC) [Entitic mass]32.0 apFugbze79.0-34.0[facility] DaytonComment on above:Performed By: #### [id number] #### [facility] [address] [place] [address]RBAF (RBC) [Mass/Vol]35.9 g/tZNolajy10.4-36.0[facility] DaytonComment on above:Performed By: #### [id number] #### [facility] [address] [place] [address]PGQ (RBC) [Entitic vol]88.9 kHJstqsa16.0-100.0[facility] Health DaytonComment on above:Performed By: #### [id number] #### [facility] [address] [place] [address]Vvlklcedx (Bld) [#/Vol]0.9 E9/LNormal0.2-1.0[facility] Health DaytonComment on above:Performed By: #### [id number] #### [facility] [address] [place] [address]Pwybqrnzuvg (Bld) [#/Vol]7.9 E9/LHigh2.0-7.5FDiley Ridge Medical CenterComment on above:Performed By: #### [id number] #### [facility] [address] [place] [address]Jjjgazvnnbs/100 WBC (Bld)80.8 %High36.0-75.0[facility] Health DaytonComment on above:Performed By: #### [id number] #### [facility] [address] [place] [address]Nlvmvsqd451.0 E9/JKgz922.0-500.0[facility] Comment on above:Performed By: #### [id number] #### [facility] [address] [place] [address]Ncexjtue mean volume (Bld) [Entitic vol]9.9 fLNormal6.4-10.8 [facility] DaytonComment on above:Performed By: #### [id number] #### [facility] [address] [place] [address]RCE (Bld) [#/Vol]5.1 E12/LNormal4.3-5.9[facility] Health DaytonComment on above:Performed By: #### [id number] #### [facility] [address] [place] [address]HEY corrected for nucl RBC Auto (Bld) [#/Vol]9.7 E9/LNormal 4.0-11.0[facility] Health DaytonComment on above:Performed By: #### [id number] #### [facility] [address] [place] [address]BBMWUAQFYFwoofaz By: SYSTEM SYSTEM on 03-26-1055Vmxjn gap [Moles/Vol]14 mmol/LNormal6 - 16 mEq/LRemisol ChemCalcium [Mass/Vol]9.3 mg/dL Normal8.9 - 11.1 mg/dLRemisol ChemChloride [Moles/Vol]103 mmol/SWnauop470 - 111 mmol/LRemisol ChemCO2 [Moles/Vol]25 mmol/AEurehl04 - 31 mmol/LRemisol Chem Creatinine [Mass/Vol]1.2 mg/dLNormal0.5 - 1.3 mg/dLRemisol LejgrYLJ52 mL/min/1.73 w8Anfzmw>=59mL/min/1.73 m5Jzjgbql ChemGlucose [Mass/Vol]164 mg/dL Bxlncr79 - 199 mg/dLRemisol ChemPotassium [Moles/Vol]3.8 mmol/LNormal3.5 - 5.3 mmol/LRemisol ChemSodium [Moles/Vol]138 mmol/TWkxjci046 - 145 mmol/LRemisol Chem Urea nitrogen [Mass/Vol]17 mg/dLNormal5 - 21 mg/dLRemisol ChemUrea nitrogen/Creatinine [Mass ratio]14 mg/rlGxpihb15 - 20Remisol ChemCT Abdomen/Pelvis w/o Contraston 01-41-3657VN Abdomen/Pelvis w/o ContrastExam Date/Time: 03/26/2024 17:36 EDT Reason for Exam: [...] for acute diverticulitis. Lymph Nodes: No lymphadenopathy. Mesentery/peritoneum/retroperitoneum: Right perinephric stranding. No loculated collection. Vasculature: [...] Given? No Oral contrast amount in ml's: 0NormalFisher [facility] Clinical Summaryon [id number] Clinical SummaryED Clinical Summary [place] [address] ED Clinical Summary Person Information Name: JESSENIA PYLE [facility] Age: 78 Years : 1945 Sex: Male Language: Bolivian PCP: CHRIS PIERRE DO Marital Status: Visit [...] 03/26/2024 19:13:14 03/26/2024 19:13:14 03/26/2024 19:13:14 ADDRESS: [address] [place] [address] [place] [id number] PHYS DOC NOTES: MEDICAL INFORMATION: Prescriptions Given: New Medications [id number], [address] [place], [place] [id number], [phone] ondansetron (Zofran ODT 4 mg Tab-Dis) 1 [...] Follow up: With: Address: When: Jesusita SMALL [address] [place] [address] [place] [address] ticckle (1) [address] [facility] [place] [phone] ticckle (1) In 3 days 03/29/2024 DIAGNOSIS: 1:Kidney stone on right sideNormalCritical Access Hospitalus Medical CenterED Patient Summary on [id number] Patient SummaryED Patient Summary [address] [address] Patient Discharge Instructions Person Information Name: JESSENIA PYLE Age: 78 Years Arrival Date: 03/26/2024 16:04:00 Discharge Diagnosis: 1:Kidney stone on right side Primary Care Physician: CHRIS PIERRE DO Provider Information Primary Provider: Advanced Lamination Assembler:Stephanie Angulo PA-C The exam and treatment you received in the Emergency Department were for an urgent problem and are not intended as complete care. It is important that you follow up with a doctor, nurse practitioner,or physician?s special ed assistant for ongoing care. If your symptoms become worse or you do not improve as expected and you are unable to reach your usual health care provider, you should return to the Emergency Department. We are available 24 hours a day. JESSENIA PYLE has been given the following list of patient education materials, prescriptions and follow-up instructions: Follow-up Instructions: With: Address: When: Jesusita STACI [address] [place] [address] [place] [address] ticckle (1) [address] [place], [place] [id number] [facility] (1) In 3 days 03/29/2024 In the [...] opioids can be used to help relieve blloyavg-jp-kintkb pain and are often prescribed following a [...] and have fewer risks and side effects. Optionsmay include: ? Pain relievers such as acetaminophen, [...] unused prescription opioids: Find your community drug take- back program or yourpharmacy mail-back program, or flush them down the toilet, following guidance from the Food and Drug Administration (www.fda.gov/Drugs/ResourcesForYou). ? Visit www.cdc.gov/drugoverdose to learn about the risks of opioids abuse and overdose. ? If you believe you may be struggling wi (more content not included)...Normal [facility] DaytonHEMATOLOGYOrdered By: SYSTEM SYSTEM on 03-26-2024 Basophils/100 WBC (Bld)0.4 %Normal0.0 - 2.0 %Remisol HemeBasophils/Leukocytes Auto (Bld) [Pure # fraction]0.0 E9/LNormal0.0 - 0.2 E9/LRemisol HemeEosinophils (Bld) [#/Vol]0.0 E9/LNormal0.0 - 0.5 E9/LRemisol HemeEosinophils/100 WBC (Bld) 0.3 %Normal0.0 - 8.0 %Remisol HemeErythrocyte distribution width (RBC) [Ratio] 15.1 %High10.9 - 14.2 %Remisol HemeHematocrit (Bld) [Volume fraction]45.7 % Gvvzjt10.7 - 49.0 %Remisol HemeHemoglobin (Bld) [Mass/Vol]16.4 g/nJCypblb60.5 - 17.5 gm/dLRemisol HemeLymphocytes (Bld) [#/Vol]0.9 E9/LLow1.0 - 4.0 E9/LRemisol HemeLymphocytes/100 WBC (Bld)9.5 %Low14.0 - 50.0 %Remisol HemeMCH (RBC) [Entitic mass]32.0 yjTwjxqg40.0 - 34.0 pgRemisol HemeMCHC (RBC) [Mass/Vol]35.9 g/dL Hvpwdn35.4 - 36.0 gm/dLRemisol HemeMCV (RBC) [Entitic vol]88.9 mQUytmgf26.0 - 100.0 fLRemisol HemeMonocytes (Bld) [#/Vol]0.9 E9/LNormal0.2 - 1.0 E9/LRemisol HemeMonocytes/100 WBC (Bld)9.0 %Normal4.0 - 14.0 %Remisol HemeNeutrophils (Bld) [#/Vol]7.9 E9/LHigh2.0 - 7.5 E9/LRemisol HemeNeutrophils/100 WBC (Bld)80.8 %High 36.0 - 75.0 %Remisol AosdZfhzrqly219.0 E9/IUgo055.0 - 500.0 E9/LRemisol Heme Platelet mean volume (Bld) [Entitic vol]9.9 fLNormal6.4 - 10.8 fLRemisol HemeRBC (Bld) [#/Vol]5.1 E12/LNormal4.3 - 5.9 E12/LRemisol HemeWBC corrected for nucl RBC Auto (Bld) [#/Vol]9.7 E9/LNormal4.0 - 11.0 E9/LRemisol HemeUA with Cult Rflx on 52-48-4648Qtlgtgvis Ql (U)NegativeNormalNegativeKettering Health Dayton Comment on above:Performed By: #### [id number] #### [facility] [address], [place] [address]Sttcgjq (U)TurbidAbnormalCleBluffton Hospital Comment on above:Performed By: #### [id number] #### [facility] [address], [place] [address]Sesek (U)Light-YellowNormalYellowKettering Health Dayton Comment on above:Result Comment: Microscopic readings are only performed on those samples that meet specific criteria set forth by [facility].Performed By: #### [id number] #### [facility] [address], [place] [address]Aymmlea Ql (U)1+ mg/dLAbnormalNegativeKettering Health DaytonComment on above:Performed By: #### [id number] #### [facility] [address], [place] [address]Tbbdsanztv Auto test strip (U) [Mass/Vol]TraceAbnormalNegative [facility] Health DaytonComment on above:Performed By: #### [id number] #### [facility] [address], [place] [address]Fgksoze Auto test strip Ql (U)NegativeNormalNegativeKettering Health DaytonComment on above:Performed By: #### [id number] #### [facility] [address], [place] [address]Edwflijkr esterase Auto test strip Ql (U)NegativeNormalNegative [facility] DaytonComment on above:Performed By: #### [id number] #### [facility] [address] [place] [address]Pwmtj Auto Ql (U)NegativeNormalNegativeKettering Health DaytonComment on above:Performed By: #### [id number] #### [facility] [address] [place] [address]Afytbac Auto test strip Ql (U)NegativeNormalNegativeKettering Health DaytonComment on above:Performed By: #### [id number] #### [facility] [address] [place] [address]xK (U)7.0 [pH]Invalid Interpretation Code5.0-9.0K[facility] Health DaytonComment on above:Performed By: #### [id number] #### [facility] [address] [place] [address]Fklacre Ql (U)TraceAbnormalNegMercy Health Comment on above:Performed By: #### [id number] #### [facility] [address] [place] [address]KXQ Ql (U)90-49Zlahrffj1-5Kfeooa [facility] Krieger InstituteComment on above:Performed By: #### [id number] #### [facility] [address], [place] [address]Apbzcavr gravity (U) [Rel density]1.018Invalid Interpretation Code1.005-1.030K[facility] Health DaytonComment on above:Performed By: #### [id number] #### [facility] [address] [place] [address]Hazvyrtangsy (U) [Mass/Vol]NegativeNormalNegativeKettering Health DaytonComment on above:Performed By: #### [id number] #### [facility] [address], [place] [address]TXC Auto (Urine sed) [#/Area]9-9Njdeti3-7Rvbzkm [facility] Krieger InstituteComment on above:Performed By: #### [id number] #### [facility] [address], [place] [address]Zkbd of Urine collection methodClean CatchNormalFisher Kennedy Krieger InstituteComment on above:Performed By: #### [id number] #### [facility] [address], [place] [address]DGSCYPEARQRplcaky By: SYSTEM SYSTEM on 61-51-9984Dezjzstku Ql (U)NegativeNormalNegativemg/dLFT UA Auto SSClarity (U)Turbid *ABN* (03/26/24 4:28 PM)Invalid Interpretation CodeClearFTMC UA Auto SSColor (U)Light- Yellow 1 (03/26/24 4:28 PM)NormalYellowFT UA Auto SSComment on above:Interpretive Data: Microscopic readings are only performed on those samples that meet specific criteria set forth by [facility].Glucose Ql (U)1+ mg/dLInvalid Interpretation CodeNegativemg/dLFTMC UA Auto SSHemoglobin Auto test strip (U) [Mass/Vol]Trace mg/dLInvalid Interpretation CodeNegativemg/dLFTMC UA Auto SSKetones Auto test strip Ql (U)NegativeNormalNegativemg/dLFTMC UA Auto SS Leukocyte esterase Auto test strip Ql (U)NegativeNormalNegativeLeu/uLFTMC UA Auto SSMucus Auto Ql (U)NegativeNormalNegativegraded/LPFFTMC UA Auto SSNitrite Auto test strip Ql (U)NegativeNormalNegativemg/dLFTMC UA Auto SSpH (U)7.0 *NA* (03/26/24 4:28 PM)Invalid Interpretation Code5.0 - 9.0FT UA Auto SSProtein Ql (U)Trace mg/dLInvalid Interpretation CodeNegativemg/dLFTMC UA Auto SSRBC Ql (U) 21-30 graded/HPFInvalid Interpretation Code0-3graded/HPFFTMC UA Auto SSSpecific gravity (U) [Rel density]1.018 *NA* (03/26/24 4:28 PM)Invalid Interpretation Code1.005 - 1.030[facility] UA Auto SS Urobilinogen (U) [Mass/Vol]NegativeNormalNegativemg/dLPURCELL MUNICIPAL HOSPITAL [facility] UA Auto SSWBC Auto (Urine sed) [#/Area]0-5 graded/HPFNormal0-5graded/HPFPURCE[facility] MUNICIPAL [facility] UA Auto SSURINALYSIS Ordered By: Koffi Westbrook on 44-44-8343KV Spec DescClean Catch (03/26/24 4:28 PM)NormalPURCELL MUNICIPAL HOSP[facility] UA Auto SSeGFRon 81-84-8574nAOQ90 mL/min/1.73 m2 Normal>=59Fisher Kennedy Krieger InstituteComment on above:Order Comment: Order added by Discern Expert.Performed By: #### [id number] #### [facility] [address], [place] [address]Suwjmxf aminotransferase [Enzymatic activity/volume] in Serum or PlasmaOrdered By: Caryn Dixon on 48-91-4597HVW [Catalytic activity/Vol]41 U/L7-52C[facility] Shriners HospitalAlbumin [Mass/volume] in Serum or Plasma by Bromocresol green (BCG) dye binding methoOrdered By: Caryn Dixon on 57-02-3838Ifoffxr BCG dye [Mass/Vol]4.6 g/dL3.5-5.7FKeenan Private HospitalAlkaline phosphatase [Enzymatic activity/volume] in Serum or PlasmaOrdered By: Caryn Dixon on 04-37-9098UYD [Catalytic activity/Vol]64 U/L34-104 [facility]riners HospitalAspartate aminotransferase [Enzymatic activity/volume] in Serum or PlasmaOrdered By: Caryn Dixon on 75-47-5702ZVV [Catalytic activity/Vol]34 U/X08-29UvtfofbkyCincinnati Shriners HospitalBacteria [Presence] in Urine by AutomatedOrdered By: Caryn Dixon on 02-20-2024 Bacteria Auto Ql (U)Rare [HPF]None SeenCincinnati Shriners Hospital Basophils Auto (Bld) [#/Vol]Ordered By: Caryn Dixon on 06-94-7339Txcaansxk (Bld) [#/Vol]0.0 10*3/uL0.0-0.2FKeenan Private HospitalBasophils/100 WBC Auto (Bld)Ordered By: Cayrn Dixon on 02-62-3574Bshilblrm/100 WBC (Bld) 0.2 %.C[facility] Shriners HospitalBilirubin Test strip Ql (U)Ordered By: Caryn Dixon on 61-54-1504Gbzkkfnqv Ql (U)NegativeNegativeCincinnati Shriners HospitalBilirubin.total [Mass/volume] in Serum or PlasmaOrdered By: Caryn Dixon on 34-38-7259Pikwtlfzq [Mass/Vol]1.2 mg/dLHigh0.3-1.0C[facility]riners HospitalCalcium [Mass/volume] in Serum or PlasmaOrdered By: Caryn Dixon on 53-84-4043Pdcoeuw [Mass/Vol]9.5 mg/dL8.6-10.3FKeenan Private HospitalCarbon dioxide, total [Moles/volume] in Serum or Plasma Ordered By: Caryn Dixon on 37-56-9784XW6 [Moles/Vol]26.6 mmol/L21.0-31.0 [facility]riners HospitalChloride [Moles/volume] in Serum or Plasma Ordered By: Caryn Dixon on 59-42-4718Hhhuufxl [Moles/Vol]104 mmol/L98-107 [facility]riners HospitalColor Auto (U)Ordered By: Caryn Dixon on 88-19-8804Ifnzo (U)YellowYellowCincinnati Shriners HospitalCreatinine [Mass/volume] in Serum or PlasmaOrdered By: Caryn Dixon on 02-20-2024 Creatinine [Mass/Vol]1.08 mg/dL0.70-1.30[facility] Eosinophils Auto (Bld) [#/Vol]Ordered By: Caryn Dixon on 02-20-2024 Eosinophils (Bld) [#/Vol]0.0 10*3/uL0.0-0.45[facility] Eosinophils/100 WBC Auto (Bld)Ordered By: Caryn Dixon on 02-20-2024 Eosinophils/100 WBC (Bld)0.0 %.[facility]riners HospitalEpithelial cells.squamous [#/area] in Urine sediment by Automated countOrdered By: Caryn Dixon on 18-97-4428Divbqgitjo cells.squamous Auto (Urine sed) [#/Area]1-2 [HPF]0-2FKeenan Private HospitalErythrocyte distribution width Auto (RBC) [Ratio]Ordered By: Caryn Dixon on 59-88-9623Yedwedfpraz distribution width (RBC) [Ratio]14.8 %12.0-14.8C[facility] Shriners HospitalErythrocytes [#/area] in Urine sediment by Automated countOrdered By: Caryn Dixon on 24-25-1684HUO Auto (Urine sed) [#/Area]Innumerable [HPF]High0-4FKeenan Private HospitalGlobulin Calc (S) [Mass/Vol]Ordered By: Caryn Dixon on 82-13-3566Xrxonhsr (S) [Mass/Vol]2.4 g/dLCincinnati Shriners Hospital Glucose [Mass/volume] in Serum or PlasmaOrdered By: Caryn Dixon on 09-68-5883Mntghzc [Mass/Vol]100 mg/hT04-303DciojotewCincinnati Shriners Hospital Comment on above:ADA recommended reference rangeRandom Glucose Reference Range is dependent on time and content of last meal. Glucose of more than 200 mg/dL in a nonstressed, ambulatory subject supports the diagnosisof Diabetes Mellitus. Glucose [Mass/volume] in Urine by Test stripOrdered By: Caryn Dixon on 55-44-8106Mmtzvgk Test strip (U) [Mass/Vol]Normal mg/dLNormalCincinnati Shriners HospitalHematocrit Auto (Bld) [Volume fraction]Ordered By: Caryn Dixon on 13-98-6567Glytarbfzc (Bld) [Volume fraction]46.9 %38.8-50.0[facility] HospitalHemoglobin Test strip Ql (U)Ordered By: Caryn Dixon on 30-06-8396Xndzkuzldf Ql (U)3+HighNegativeCincinnati Shriners Hospital Hemoglobin [Mass/volume] in BloodOrdered By: Caryn Dixon on 02-20-2024 Hemoglobin (Bld) [Mass/Vol]15.9 g/dL13.0-17.0[facility] Hyaline casts [#/area] in Urine sediment by Automated countOrdered By: Caryn Dixon on 97-00-9413Isdyupf casts Auto (Urine sed) [#/Area]None [LPF]0-8 [facility] HospitalKetones Test strip Ql (U)Ordered By: Caryn Dixon on 37-08-9015Fujxfjp Ql (U)NegativeNegativeCincinnati Shriners HospitalLeukocyte esterase [Presence] in Urine by Test stripOrdered By: Caryn Dixon on 56-58-4629Taxoivdqm esterase Test strip Ql (U)NegativeNegative [facility] HospitalLeukocytes [#/area] in Urine sediment by Automated countOrdered By: Caryn Dixon on 84-93-3783CCM Auto (Urine sed) [#/Area]5-9 [HPF]High0-4FKeenan Private HospitalLeukocytes [#/volume] corrected for nucleated erythrocytes in Blood by Automated counOrdered By: Caryn Dixon on 20-27-4603XLK corrected for nucl RBC Auto (Bld) [#/Vol]11.3 10*3/uLHigh4.1-10.5FKeenan Private HospitalLipase [Enzymatic activity/volume] in Serum or PlasmaOrdered By: Caryn Dixon on 02-20-2024 Lipase [Catalytic activity/Vol]30.0 U/L11.0-82.0[facility] HospitalLymphocytes Auto (Bld) [#/Vol]Ordered By: Caryn Dixon on 02-20-2024 Lymphocytes (Bld) [#/Vol]0.8 10*3/uLLow1.00-4.8[facility] Lymphocytes/100 WBC Auto (Bld)Ordered By: Caryn Dixon on 02-20-2024 Lymphocytes/100 WBC (Bld)7.1 %.[facility] Auto (RBC) [Entitic mass]Ordered By: Caryn Dixon on 86-88-3505SAM (RBC) [Entitic mass] 30.1 pg27.5-35.2FKeenan Private HospitalMCHC Auto (RBC) [Mass/Vol] Ordered By: Caryn Dixon on 78-07-5544ENRT (RBC) [Mass/Vol]33.9 g/dL32.5-35.6 [facility] HospitalMCV Auto (RBC) [Entitic vol]Ordered By: Caryn Dixon on 22-32-6385XIG (RBC) [Entitic vol]89.0 fL83.5-101[facility] HospitalMonocyte distribution width [Entitic volume] in Blood by AutomatedOrdered By: Caryn Dixon on 58-27-1682Ifqjbaih distribution width Auto (Bld) [Entitic vol]16.51 %0.00-20.00[facility] Monocytes Auto (Bld) [#/Vol]Ordered By: Caryn Dixon on 79-39-6198Usabohlxi (Bld) [#/Vol]0.7 10*3/uL0.0-0.8[facility] HospitalMonocytes/100 WBC Auto (Bld)Ordered By: Caryn Dixon on 80-95-3015Mcwqfudub/100 WBC (Bld) 6.0 %.[facility] HospitalMucus [Presence] in Urine by Automated Ordered By: Caryn Dixon on 10-52-3573Hzjel Auto Ql (U)1+ [LPF]Abnormal [facility] HospitalNeutrophils Auto (Bld) [#/Vol]Ordered By: Caryn Dixon on 87-97-0882Flmuooyysuy (Bld) [#/Vol]9.8 10*3/uLHigh1.8-7.7 [facility] HospitalNeutrophils/100 WBC Auto (Bld)Ordered By: Caryn Dixon on 51-30-0124Uywonymntxp/100 WBC (Bld)86.7 %.[facility] HospitalNitrite Test strip Ql (U)Ordered By: Caryn Dixon on 02-20-2024 Nitrite Ql (U)NegativeNegativeCincinnati Shriners HospitalNo Panel InformationOrdered By: Caryn Dixon on 32-47-2110Ypxrcgkci GFR (CKD-EPI)> 60.0 mL/MinCincinnati Shriners HospitalPharmacy Creatinine Clearance (Chem 66.60[facility] HospitalNucleated erythrocytes [Presence] in Blood by Automated countOrdered By: Caryn Dixon on 26-12-9145Xhpjgnmik RBC Auto Ql (Bld)0.2 /100{WBC}0-0.5FKeenan Private HospitalPlatelet mean volume Auto (Bld) [Entitic vol]Ordered By: Caryn Dixon on 86-23-0780Puinmhhs mean volume (Bld) [Entitic vol]10.3 fLHigh6.6-10.1FKeenan Private Hospital Platelets Auto (Bld) [#/Vol]Ordered By: Caryn Dixon on 80-57-8178Ryugcrpzd (Bld) [#/Vol]177 10*3/fI234-525OyazohyaiCincinnati Shriners HospitalPotassium [Moles/volume] in Serum or PlasmaOrdered By: Caryn Dixon on 02-20-2024 Potassium [Moles/Vol]4.3 mmol/L3.5-5.1FKeenan Private HospitalProtein Test strip (U) [Mass/Vol]Ordered By: Caryn Dixon on 92-25-0409Mjlvnou (U) [Mass/Vol]20 mg/dLHighNegativeCincinnati Shriners HospitalProtein [Mass/volume] in Serum or PlasmaOrdered By: Caryn Dixon on 33-73-0764Rzdukoo [Mass/Vol]7.0 g/dL6.4-8.9[facility] HospitalRBC Auto (Bld) [#/Vol]Ordered By: Caryn Dixon on 53-43-4583TUP (Bld) [#/Vol]5.27 10*6/uL 3.90-5.60[facility] Hospitalerum or plasma albumin/globulin mass ratioOrdered By: Caryn Dixon on 16-50-3823Eiggtmj/Globulin [Mass ratio]1.9 {ratio}[facility] Hospitalerum or plasma anion gap determination Ordered By: Caryn Dixon on 69-57-5846Jjxvk gap [Moles/Vol]11.7 mmol/L 6.0-15.0[facility] Hospitalodium [Moles/volume] in Serum or PlasmaOrdered By: Caryn Dixon on 11-94-4384Juhvjt [Moles/Vol]138 mmol/L 136-145[facility] Hospitalpecific gravity Test strip (U) [Rel density]Ordered By: Caryn Dixon on 17-89-7010Ekcxdwbq gravity (U) [Rel density]1.0191.001-1.030[facility] HospitalUrea nitrogen [Mass/volume] in Serum or PlasmaOrdered By: Caryn Dixon on 75-54-7541Qqul nitrogen [Mass/Vol]19 mg/dL7[facility] HospitalUrine appearance Ordered By: Caryn Dixon on 06-83-5640Yyanakquky (U)ClearClearFKeenan Private HospitalUrobilinogen Test strip (U) [Mass/Vol]Ordered By: Caryn Dixon on 27-96-8617Etyolsyxemvz (U) [Mass/Vol]Normal mg/dLNormal [facility] HospitalWBC Auto (Bld) [#/Vol]Ordered By: Caryn Dixon on 51-07-3889RWM (Bld) [#/Vol]11.3 10*3/uLHigh4.1-10.5FKeenan Private HospitalpH Test strip (U)Ordered By: Caryn Dixon on 36-57-8367dS (U) 6.5 [pH]5.0-9.0[facility] HospitalAlanine aminotransferase [Enzymatic activity/volume] in Serum or PlasmaOrdered By: SPENCER ZARATE on 32-69-6355WTV [Catalytic activity/Vol]43 U/L7-52[facility] HospitalAlbumin [Mass/volume] in Serum or Plasma by Bromocresol green (BCG) dye binding methoOrdered By: SPENCER ZARATE on 03-67-2087Diumxuw BCG dye [Mass/Vol] 4.3 g/dL3.5-5.7FKeenan Private HospitalAlkaline phosphatase [Enzymatic activity/volume] in Serum or PlasmaOrdered By: SPENCER ZARATE on 60-04-6828COL [Catalytic activity/Vol]62 U/K68-358GqtobaqfxCincinnati Shriners HospitalAspartate aminotransferase [Enzymatic activity/volume] in Serum or PlasmaOrdered By: SPENCER ZARATE on 85-34-0453DCV [Catalytic activity/Vol]30 U/E50-50WqagvakucCincinnati Shriners HospitalBasophils Auto (Bld) [#/Vol]Ordered By: SPENCER ZARATE on 39-97-7680Zzdslrrsq (Bld) [#/Vol]0.0 10*3/uL0.0-0.2FKeenan Private HospitalBasophils/100 WBC Auto (Bld)Ordered By: SPENCER ZARATE on 02-04-2024 Basophils/100 WBC (Bld)0.5 %.[facility] HospitalBilirubin.total [Mass/volume] in Serum or PlasmaOrdered By: SPENCER ZARATE on 02-04-2024 Bilirubin [Mass/Vol]1.3 mg/dLHigh0.3-1.0[facility] HospitalComment on above:Samples from patients who have taken Naproxen have shown spurious elevation in Total Bilirubin levels. A metabolite of Naproxen, O- desmethylnaproxen, has been shown to interfere with the Mariam-Mindy method for measuring Total Bilirubin.Calcium [Mass/volume] in Serum or PlasmaOrdered By: SPENCER ZARATE on 85-84-8176Gnyvyrv [Mass/Vol]9.4 mg/dL8.6-10.3FKeenan Private HospitalCarbon dioxide, total [Moles/volume] in Serum or Plasma Ordered By: SPENCER ZARATE on 50-12-5545VP8 [Moles/Vol]28.4 mmol/L21.0-31.0 [facility] HospitalChloride [Moles/volume] in Serum or Plasma Ordered By: SPENCER ZARATE on 78-46-5994Zxqzuvgg [Moles/Vol]105 mmol/L98-107 [facility] HospitalCholesterol [Mass/volume] in Serum or Plasma Ordered By: SPENCER ZARATE on 83-31-4590Gdrkoxlrsns [Mass/Vol]136 mg/dLLow 140-200[facility] HospitalComment on above:Chol less than 200 mg/dl low riskChol 201-239 mg/dl borderline riskChol 240 mg/dl and greater high riskCholesterol in LDL Calc [Mass/Vol]Ordered By: SPENCER ZARATE on 02-04-2024 Cholesterol in LDL [Mass/Vol]60 mg/dL0-100[facility] Comment on above:LDL ATP III CLASSIFICATIONLDL less than 100 mg/dL OptimalLDL 100-129 mg/dL Near or above qwqdownGPW673-449 mg/dL Borderline highLDL 160-189 mg/dL HighLDL greater than 189 mg/dL Very highCholesterol in VLDL Calc [Mass/Vol]Ordered By: SPENCER ZARATE on 91-48-8284Jcgtfjbcmfb in VLDL [Mass/Vol] 18 mg/dLCincinnati Shriners HospitalCreatinine [Mass/volume] in Serum or PlasmaOrdered By: SPENCER ZARATE on 79-47-9467Idmnyrcxlb [Mass/Vol]1.02 mg/dL 0.70-1.30[facility] HospitalCreatinine [Mass/volume] in Urine Ordered By: SPENCER ZARATE on 56-83-1773Koigqtucca (U) [Mass/Vol]353.00 mg/dL [facility] HospitalComment on above:No reference range established Eosinophils Auto (Bld) [#/Vol]Ordered By: SPENCER ZARATE on 02-04-2024 Eosinophils (Bld) [#/Vol]0.0 10*3/uL0.0-0.45[facility] Eosinophils/100 WBC Auto (Bld)Ordered By: SPENCER ZARATE on 02-04-2024 Eosinophils/100 WBC (Bld)0.5 %.[facility] HospitalErythrocyte distribution width Auto (RBC) [Ratio]Ordered By: SPENCER ZARATE on 02-04-2024 Erythrocyte distribution width (RBC) [Ratio]13.8 %12.0-14.8[facility] HospitalGlobulin Calc (S) [Mass/Vol]Ordered By: SPENCER ZARATE on 85-75-0934Kpcpolzg (S) [Mass/Vol]1.9 g/dLCincinnati Shriners Hospital Glucose [Mass/volume] in Serum or PlasmaOrdered By: SPENCER ZARATE on 02-04-2024 Glucose [Mass/Vol]122 mg/eYVybs84-602KlnpfwzbaCincinnati Shriners HospitalComment on above:ADA recommended reference rangeRandom Glucose Reference Range is dependent on time and content of last meal. Glucose of more than 200 mg/dL in a nonstressed, ambulatory subject supports the diagnosisof Diabetes Mellitus. Glucose mean value [Mass/volume] in Blood Estimated from glycated hemoglobin Ordered By: SPENCER AZRATE on 55-82-3242Elhmuar glucose Estimated from glycated hemoglobin (Bld) [Mass/Vol]114 mg/dLCincinnati Shriners HospitalHematocrit Auto (Bld) [Volume fraction]Ordered By: SPENCER ZARATE on 49-93-2161Sprdtsrayu (Bld) [Volume fraction]47.5 %38.8-50.0[facility] Hemoglobin A1c percentageOrdered By: SPENCER ZARATE on 66-16-9724HcF1a (Bld) [Mass fraction]5.6 %4.3-5.6FKeenan Private HospitalComment on above: Increased risk for diabetes: 5.7 - 6.4diabetes: >6.4glycemic control for adults with diabetes: <7.0Hemoglobin [Mass/volume] in BloodOrdered By: SPENCER ZARATE on 46-74-7738Maiiygngye (Bld) [Mass/Vol]16.3 g/dL13.0-17.0[facility] HospitalLeukocytes [#/volume] corrected for nucleated erythrocytes in Blood by Automated counOrdered By: SPENCER ZARATE on 02-04-2024 WBC corrected for nucl RBC Auto (Bld) [#/Vol]6.4 10*3/uL4.1-10.5FKeenan Private HospitalLymphocytes Auto (Bld) [#/Vol]Ordered By: SPENCER ZARATE on 78-94-7954Zlxrhkrqccf (Bld) [#/Vol]1.0 10*3/uL1.00-4.8[facility] HospitalLymphocytes/100 WBC Auto (Bld)Ordered By: SPENCER ZARATE on 16-44-9319Ebiijdwhvfh/100 WBC (Bld)14.9 %.[facility] Auto (RBC) [Entitic mass]Ordered By: SPENCER ZARATE on 62-38-6171GAH (RBC) [Entitic mass]30.5 pg27.5-35.2FMercy [facility] Auto (RBC) [Mass/Vol]Ordered By: SPENCER ZARATE on 16-35-4447ZRZN (RBC) [Mass/Vol]34.4 g/dL 32.5-35.6FKeenan Private HospitalMCV Auto (RBC) [Entitic vol]Ordered By: SPENCER ZARATE on 48-94-4465OEW (RBC) [Entitic vol]88.7 fL83.5-101[facility] HospitalMicroalbumin [Mass/volume] in UrineOrdered By: SPENCER ZARATE on 19-94-0359Mjelmiz DL <= 20 mg/L (U) [Mass/Vol]24.3 mg/dLHigh0.0-1.8 [facility] HospitalMonocytes Auto (Bld) [#/Vol]Ordered By: SPENCER ZARATE on 00-80-4089Bqfqnwlvv (Bld) [#/Vol]0.7 10*3/uL0.0-0.8[facility] HospitalMonocytes/100 WBC Auto (Bld)Ordered By: SPENCER ZARATE on 05-74-5762Akdwahtjq/100 WBC (Bld)10.6 %.[facility] Neutrophils Auto (Bld) [#/Vol]Ordered By: SPENCER ZARATE on 02-04-2024 Neutrophils (Bld) [#/Vol]4.7 10*3/uL1.8-7.7FKeenan Private Hospital Neutrophils/100 WBC Auto (Bld)Ordered By: SPENCER ZARATE on 02-04-2024 Neutrophils/100 WBC (Bld)73.5 %.[facility] HospitalNo Panel InformationOrdered By: SPENCER ZARATE on 47-29-4015Glxhofipx GFR (CKD-EPI)> 60.0 mL/MinCincinnati Shriners HospitalPharmacy Creatinine Clearance (ChemN/A [facility] HospitalNucleated erythrocytes [Presence] in Blood by Automated countOrdered By: SPENCER ZARATE on 59-40-6210Thlqqdlia RBC Auto Ql (Bld)0.2 /100{WBC}0-0.5FKeenan Private HospitalPlatelet mean volume Auto (Bld) [Entitic vol]Ordered By: SPENCER ZARATE on 72-77-3760Wfdtvqsk mean volume (Bld) [Entitic vol]10.6 fLHigh6.6-10.1FKeenan Private Hospital Platelets Auto (Bld) [#/Vol]Ordered By: SPENCER ZARATE on 37-94-1327Opwgqdvbg (Bld) [#/Vol]129 10*3/gITwm276-079IrfusttmkCincinnati Shriners HospitalPotassium [Moles/volume] in Serum or PlasmaOrdered By: SPENCER ZARATE on 02-04-2024 Potassium [Moles/Vol]4.4 mmol/L3.5-5.1FKeenan Private HospitalProstate specific Ag [Mass/volume] in Serum or PlasmaOrdered By: SPENCER ZARATE on 78-99-6963Zsfcwgwt specific Ag [Mass/Vol]1.140 ng/mL0.000-4.000[facility] HospitalComment on above:Serial tumor marker results determined by assays using different manufacturers or methods may not be comparable.[facility] Laboratory gas prover and method:[employer] Infinite DXI, CHEMILUMINESCENT IMMUNOASSAY.Protein [Mass/volume] in Serum or PlasmaOrdered By: SPENCER ZARATE on 49-85-9208Tpgcvct [Mass/Vol]6.2 g/dLLow6.4-8.9[facility] HospitalRBC Auto (Bld) [#/Vol]Ordered By: SPENCER ZARATE on 03-02-8380TDW (Bld) [#/Vol]5.35 10*6/uL3.90-5.60[facility] Hospitalerum or plasma albumin/globulin mass ratioOrdered By: SPENCER ZARATE on 81-14-4306Kdicrkt/Globulin [Mass ratio]2.3 {ratio}[facility] Hospitalerum or plasma anion gap determinationOrdered By: SPENCER ZARATE on 22-32-3262Zhtzv gap [Moles/Vol]9.0 mmol/L6.0-15.0[facility] Hospitalerum or plasma high density lipoprotein (HDL) cholesterol measurement Ordered By: SPENCER ZARATE on 97-80-9784Gslfwmebkcy in HDL [Mass/Vol]57 mg/dL 23-92[facility] HospitalComment on above:HDL CHOL ATP-III CLASSIFICATION Cardiovascular RiskHDL > or equal to 60 mg/dL LOWHDL < 40 mg/dL HIGHSerum or plasma total cholesterol/high density lipoprotein (HDL) cholesterol mass ratOrdered By: SPENCER ZARATE on 76-51-4462Gharhxataqa.total/Cholesterol in HDL [Mass ratio]2.4 {ratio}<5.0[facility] Hospitalodium [Moles/volume] in Serum or PlasmaOrdered By: SPENCER ZARATE on 39-76-2731Pdgdfr [Moles/Vol]138 mmol/M152-575EvfafjpmzCincinnati Shriners HospitalTriglyceride [Mass/volume] in Serum or PlasmaOrdered By: SPENCER ZARATE on 02-04-2024 Triglyceride [Mass/Vol]93 mg/dL0-149[facility] HospitalComment on above:TRIG ATP III CLASSIFICATIONTRIG less than 150 mg/dL NormalTRIG 150-199 mg/dL Borderline highTRIG 200-500 mg/dL High TRIG greater than 500 mg/dL Very highStandard traceable to the Center for Disease Conrtrol and Prevention (CDC) test method.Urea nitrogen [Mass/volume] in Serum or PlasmaOrdered By: SPENCER ZARATE on 93-54-6251Ohah nitrogen [Mass/Vol]18 mg/dL7-[facility] HospitalUrine microalbumin/creatinine mass ratioOrdered By: SPENCER ZARATE on 58-80-5172Ouiqlos/Creatinine DL <= 20 mg/L (U) [Mass ratio]68.8 mg/gHigh 0.0-30.0[facility] HospitalComment on above:30-300 mg/g indicates an increased risk for diabetic nephropathy. Greater than 300 mg/g is consistent with clinical nephropathy. (Am. J. Kidney Disease 1995, 25:107)WBC Auto (Bld) [#/Vol]Ordered By: SPENCER ZARATE on 43-21-7841LGO (Bld) [#/Vol]6.4 10*3/uL 4.1-10.5FKeenan Private HospitalActivated partial thromboplastin time (aPTT) in platelet poor plasma by coagulation aOrdered By: Jesusita Hoffman on 49-32-3808uDKU Coag (PPP) [Time]34.4 s25.1-36.5FKeenan Private Hospital Comment on above:A hematocrit value greater than 55% may lead to inaccurate results in coagulation testing. Patientshaving hematocrit values >55% require a special collection tube for coagulation studies. Please contact the laboratory at [phone] for redraw instructions.Basophils Auto (Bld) [#/Vol]Ordered By: Jesusita Hoffman on 61-65-2968Jtnjibaii (Bld) [#/Vol]N/[facility] HospitalBasophils/100 WBC Auto (Bld)Ordered By: Jesusita Hoffman on 09-29-2023 Basophils/100 WBC (Bld)N/[facility] HospitalCalcium [Mass/volume] in Serum or PlasmaOrdered By: Jesusita Hoffman on 20-29-2337Tdmmbfd [Mass/Vol]9.0 mg/dL8.6-10.3FKeenan Private HospitalCarbon dioxide, total [Moles/volume] in Serum or PlasmaOrdered By: Jesusita Hoffman on 09-61-4935DJ7 [Moles/Vol]26.9 mmol/L21.0-31.0[facility] HospitalChloride [Moles/volume] in Serum or PlasmaOrdered By: Jesusita Hoffman 82-53-2052Uyurfgbd [Moles/Vol]111 mmol/F21-932HysnxgtgfCincinnati Shriners HospitalCreatine kinase [Enzymatic activity/volume] in Serum or PlasmaOrdered By: Jesusita Hoffman on 21-70-0006FD [Catalytic activity/Vol]66 U/T06-226ZlnlaarvqCincinnati Shriners HospitalCreatinine [Mass/volume] in Serum or PlasmaOrdered By: Jesusita Hoffman 13-49-6473Sawjtftcxo [Mass/Vol]0.78 mg/dL0.70-1.30[facility] HospitalEosinophils Auto (Bld) [#/Vol]Ordered By: Jesusita Hoffman on 09-29-2023 Eosinophils (Bld) [#/Vol]N/[facility] HospitalEosinophils/100 WBC Auto (Bld)Ordered By: Jesusita Hoffman on 07-16-3313Mibmbztdwwt/100 WBC (Bld)N/A [facility] HospitalEosinophils/100 WBC Manual cnt (Bld)Ordered By: Jesusita Hoffman on 68-35-3149Oatafqmezbz/100 WBC (Bld)4 %1-3FKeenan Private HospitalErythrocyte distribution width Auto (RBC) [Ratio]Ordered By: Jesusita Hoffman on 23-84-5847Jwjctcumyoq distribution width (RBC) [Ratio]12.9 % 12.0-14.8[facility] HospitalGlucose [Mass/volume] in Serum or PlasmaOrdered By: Jesusita Hoffman on 66-81-7779Bhkwgnv [Mass/Vol]140 mg/aV91-828 [facility] HospitalComment on above:ADA recommended reference rangeRandom Glucose Reference Range is dependent on time and content of last meal. Glucose of more than 200 mg/dL in a nonstressed, ambulatory subject supports the diagnosisof Diabetes Mellitus.Hematocrit Auto (Bld) [Volume fraction]Ordered By: Jesusita Hoffman on 80-30-2877Yoihauehuu (Bld) [Volume fraction]44.0 %38.8-50.0[facility] HospitalHemoglobin [Mass/volume] in BloodOrdered By: Jesusita Hoffman on 37-05-4949Kxlfmjzkih (Bld) [Mass/Vol]15.5 g/dL13.0-17.0[facility] HospitalINR in Platelet poor plasma by Coagulation assayOrdered By: Jesusita Hoffman on 18-56-1974UYO Coag (PPP) [Relative time]1.0 {INR}[facility] HospitalComment on above: INR Therapeutic Range A) Pre- and Peroperative OAT started two weeks before surgery. NOT HIP SURGERY: 1.5 - 2.5 HIP SURGERY: 2 - 3B) Primary and secondary prevention of venous THROMBOSIS: 2 - 3C) Active venous thrombosis, pulmonary embolismand prevention of recurrent venous thrombosis: 2 - 3D) Prevention of arterial thromboembolismincluding patients with mechanical heart valves: 3 - 4.5 Leukocytes [#/volume] corrected for nucleated erythrocytes in Blood by Automated counOrdered By: Jesusita Hoffman on 85-50-3063DZY corrected for nucl RBC Auto (Bld) [#/Vol]5.6 10*3/uL4.1-10.5FKeenan Private HospitalLymphocytes Auto (Bld) [#/Vol]Ordered By: Jesusita Hoffman on 91-03-2150Pdzaomocxeh (Bld) [#/Vol]N/A [facility] HospitalLymphocytes/100 WBC Auto (Bld)Ordered By: Jesusita Hoffman on 63-02-0251Fhwpelfwwtu/100 WBC (Bld)N/[facility] HospitalLymphocytes/100 WBC Manual cnt (Bld)Ordered By: Jesusita Hoffman on 03-57-8580Vailatjfgoy/100 WBC (Bld)18 %18-42[facility] HospitalMCH Auto (RBC) [Entitic mass]Ordered By: Jesusita Hoffman on 57-77-5596KUC (RBC) [Entitic mass]32.8 pg27.5-35.2FCleveland Clinic FoundationHC Auto (RBC) [Mass/Vol]Ordered By: Jesusita Hoffman on 35-64-4217NCNP (RBC) [Mass/Vol]35.3 g/dL 32.5-35.6FKeenan Private HospitalMCV Auto (RBC) [Entitic vol]Ordered By: Jesusita Hoffman on 34-54-7201OQW (RBC) [Entitic vol]92.9 fL83.5-101[facility] HospitalMonocyte distribution width [Entitic volume] in Blood by AutomatedOrdered By: Jesusita Hoffman on 60-89-5226Redmpnkj distribution width Auto (Bld) [Entitic vol]16.62 %0.00-20.00[facility] HospitalMonocytes Auto (Bld) [#/Vol]Ordered By: Jesusita Hoffman on 99-73-1665Jisccdhoi (Bld) [#/Vol] N/[facility] HospitalMonocytes/100 WBC Auto (Bld)Ordered By: Jesusita Hoffman on 61-79-4615Ssbglchmm/100 WBC (Bld)N/[facility] HospitalMonocytes/100 WBC Manual cnt (Bld)Ordered By: Jesusita Hoffman on 09-29-2023 Monocytes/100 WBC (Bld)7 %2-11[facility] HospitalNatriuretic peptide B [Mass/Vol]Ordered By: Jesusita Hoffman on 97-62-1120Vivufkloswl peptide B (Bld) [Mass/Vol]41.0 pg/mL5-100[facility] HospitalNeutrophils Auto (Bld) [#/Vol]Ordered By: Jesusita Hoffman on 59-98-9968Kqygkkcfoxg (Bld) [#/Vol]N/A [facility] HospitalNeutrophils/100 WBC Auto (Bld)Ordered By: Jesusita Hoffman on 65-36-9146Brbdmyjaogd/100 WBC (Bld)N/[facility] HospitalNo Panel InformationOrdered By: Jesusita Hoffman on 95-10-8767Fwjmrqmef GFR (CKD-EPI)> 60.0 mL/MinCincinnati Shriners HospitalPharmacy Creatinine Clearance (Qesg514.19[facility] HospitalNucleated erythrocytes [Presence] in Blood by Automated countOrdered By: Jesusita Hoffman on 09-29-2023 Nucleated RBC Auto Ql (Bld)N/[facility] HospitalPlatelet adequacy [Presence] in Blood by Light microscopyOrdered By: Jesusita Hoffman on 09-29-2023 Platelets LM Ql (Bld)DecreasedNormalCincinnati Shriners HospitalPlatelet mean volume Auto (Bld) [Entitic vol]Ordered By: Jesusita Hoffman on 09-29-2023 Platelet mean volume (Bld) [Entitic vol]10.4 fL6.6-10.1FKeenan Private HospitalPlatelet morphology finding [Identifier] in BloodOrdered By: Jesusita Hoffman on 89-64-2229Wsogtauf morphology finding Nom (Bld)NormalNoal [facility] HospitalPlatelets Auto (Bld) [#/Vol]Ordered By: Jesusita Hfofman on 04-16-5688Ppksreyat (Bld) [#/Vol]136 10*3/zG997-777PyqiaphnwCincinnati Shriners HospitalPolychromasia [Presence] in Blood by Light microscopyOrdered By: Jesusita Hoffman on 76-15-4172Pwkwuyaxsbusg LM Ql (Bld)SlightCincinnati Shriners HospitalPotassium [Moles/volume] in Serum or PlasmaOrdered By: Jesusita Hoffman on 56-15-1152Ktsiuxbke [Moles/Vol]3.8 mmol/L3.5-5.1FKeenan Private HospitalProthrombin time (PT)Ordered By: Jesusita Hoffman on 50-81-6121OB Coag (PPP) [Time]11.8 s9.0-12.9[facility] HospitalComment on above:A hematocrit value greater than 55% may lead to inaccurate results in coagulation testing. Patientshaving hematocrit values >55% require a special collection tube for coagulation studies. Please contact the laboratory at [phone] for redraw instructions.RBC Auto (Bld) [#/Vol]Ordered By: Jesusita Hoffman on 09-29-2023 RBC (Bld) [#/Vol]4.73 10*6/uL3.90-5.60[facility] HospitalRBC morphologyOrdered By: Jesusita Hoffman on 88-89-7165HSM morphology finding Nom (Bld) NormalNormalEast [facility] Regional Hospitalegmented neutrophils/100 WBC Manual cnt (Bld)Ordered By: Jesusita Hoffman on 57-54-0636Jcfnxqjbz neutrophils/100 WBC (Bld)70 %50-70[facility] Hospitalerum or plasma anion gap determinationOrdered By: Jesusita Hoffman on 03-52-9757Ownbd gap [Moles/Vol]2.9 mmol/L6.0-15.0[facility] Hospitalodium [Moles/volume] in Serum or PlasmaOrdered By: Jesusita Hoffman on 57-14-7697Dsafdd [Moles/Vol]137 mmol/G727-354 [facility] HospitalTroponin I.cardiac [Mass/volume] in Serum or Plasma by Detection limit <= 0.01 ng/Ordered By: Jesusita Hoffman on 09-29-2023 Troponin I.cardiac DL <= 0.01 ng/mL [Mass/Vol]6.1 pg/mL0.0-20.0[facility] HospitalUrea nitrogen [Mass/volume] in Serum or PlasmaOrdered By: Jesusita Hoffamn on 79-10-0375Rthg nitrogen [Mass/Vol]18 mg/dL7-25[facility] HospitalVariant lymphocytes/100 WBC Manual cnt (Bld)Ordered By: Jesusita Hoffman on 60-15-5174Canypvd lymphocytes/100 WBC (Bld)2 %0-12[facility] HospitalWBC Auto (Bld) [#/Vol]Ordered By: Jesusita Hoffman on 22-32-8685TKH (Bld) [#/Vol]5.6 10*3/uL4.1-10.5FKeenan Private Hospital Alanine aminotransferase [Enzymatic activity/volume] in Serum or PlasmaOrdered By: Chris Pierre on [id number] [Catalytic activity/Vol]60 U/L7-52[facility] HospitalAlbumin [Mass/volume] in Serum or Plasma by Bromocresol green (BCG) dye binding methoOrdered By: Chris Pierre on 15-14-2905Dkbvhrm BCG dye [Mass/Vol]4.1 g/dL3.5-5.7FKeenan Private HospitalAlkaline phosphatase [Enzymatic activity/volume] in Serum or PlasmaOrdered By: Chris Pierre on 67-38-9938YPO [Catalytic activity/Vol]67 U/R57-809PeunsmfolCincinnati Shriners HospitalAspartate aminotransferase [Enzymatic activity/volume] in Serum or PlasmaOrdered By: Chris Pierre on 62-54-8876YTX [Catalytic activity/Vol]49 U/L 13-39[facility] HospitalBasophils Auto (Bld) [#/Vol]Ordered By: Chris Pierre on 78-10-4872Vkhyeioxm (Bld) [#/Vol]0.0 10*3/uL0.0-0.2FKeenan Private HospitalBasophils/100 WBC Auto (Bld)Ordered By: Chris Pierre on 18-47-5039Wnigdbbmd/100 WBC (Bld)0.7 %.[facility] Bilirubin.total [Mass/volume] in Serum or PlasmaOrdered By: Chris Pierre on 47-72-4185Pfxiftkbw [Mass/Vol]1.3 mg/dL0.3-1.0[facility] Comment on above:Samples from patients who have taken Naproxen have shown spurious elevation in Total Bilirubin levels. A metabolite of Naproxen, O- desmethylnaproxen, has been shown to interfere with the Santiago method for measuring Total Bilirubin.Calcium [Mass/volume] in Serum or PlasmaOrdered By: Chris Pierre on 38-56-8769Qqpqqhc [Mass/Vol]9.2 mg/dL8.6-10.3FKeenan Private HospitalCarbon dioxide, total [Moles/volume] in Serum or Plasma Ordered By: Chris Pierre on 82-51-4052HT7 [Moles/Vol]30.9 mmol/L21.0-31.0 [facility] HospitalChloride [Moles/volume] in Serum or Plasma Ordered By: Chris Pierre on 14-74-5037Vbvyacxh [Moles/Vol]104 mmol/L98-107 [facility] HospitalCholesterol [Mass/volume] in Serum or Plasma Ordered By: Chris Pierre on 71-35-7531Atvxfmfmivb [Mass/Vol]128 mg/aK887-321 [facility] HospitalComment on above:Chol less than 200 mg/dl low riskChol 201-239 mg/dl borderline riskChol 240 mg/dl and greater high risk Cholesterol in LDL Calc [Mass/Vol]Ordered By: Chris Pierre on 08-02-2023 Cholesterol in LDL [Mass/Vol]52 mg/dL0-100[facility] Comment on above:LDL ATP III CLASSIFICATIONLDL less than 100 mg/dL OptimalLDL 100-129 mg/dL Near or above torzvleYRN508-560 mg/dL Borderline highLDL 160-189 mg/dL HighLDL greater than 189 mg/dL Very highCholesterol in VLDL Calc [Mass/Vol]Ordered By: Chris Pierre on 71-31-1023Sbxyprsmkcy in VLDL [Mass/Vol] 36 mg/dLCincinnati Shriners HospitalCreatinine [Mass/volume] in Serum or PlasmaOrdered By: Chris Pierre on 23-63-0046Vfhjbqzuut [Mass/Vol]1.04 mg/dL 0.70-1.30[facility] HospitalEosinophils Auto (Bld) [#/Vol]Ordered By: Chris Pierre on 13-44-8466Xueofydvlyc (Bld) [#/Vol]0.1 10*3/uL0.0-0.45 [facility] HospitalEosinophils/100 WBC Auto (Bld)Ordered By: Chris Pierre on 18-11-1746Clfbiqrzvck/100 WBC (Bld)1.6 %.[facility] HospitalErythrocyte distribution width Auto (RBC) [Ratio]Ordered By: Chris Pierre on 04-71-5151Qiliplojnnl distribution width (RBC) [Ratio]13.9 % 12.0-14.8[facility] HospitalGlobulin Calc (S) [Mass/Vol]Ordered By: Chris Pierre on 62-84-6130Oheehprq (S) [Mass/Vol]2.0 g/dLCincinnati Shriners HospitalGlucose [Mass/volume] in Serum or PlasmaOrdered By: Chris Pierre on 53-52-3476Laenpjg [Mass/Vol]148 mg/zT62-531XriwiyvcyCincinnati Shriners HospitalComment on above:ADA recommended reference rangeRandom Glucose Reference Range is dependent on time and content of last meal. Glucose of more than 200 mg/dL in a nonstressed, ambulatory subject supports the diagnosisof Diabetes Mellitus.Glucose mean value [Mass/volume] in Blood Estimated from glycated hemoglobinOrdered By: Chris Pierre on 75-78-9562Lfregrr glucose Estimated from glycated hemoglobin (Bld) [Mass/Vol]126 mg/dLCincinnati Shriners HospitalHematocrit Auto (Bld) [Volume fraction]Ordered By: Chris Pierre on 73-90-3027Dvvvqkumyn (Bld) [Volume fraction]47.3 %38.8-50.0[facility] HospitalHemoglobin A1c percentageOrdered By: Chris Pierre on 08-02-2023 HbA1c (Bld) [Mass fraction]6.0 %4.3-5.6FKeenan Private HospitalComment on above:Increased risk for diabetes: 5.7 - 6.4diabetes: >6.4glycemic control for adults with diabetes: <7.0Hemoglobin [Mass/volume] in BloodOrdered By: Chris Pierre on 92-33-4545Sxqebkmozc (Bld) [Mass/Vol]16.3 g/dL13.0-17.0 [facility] HospitalLeukocytes [#/volume] corrected for nucleated erythrocytes in Blood by Automated counOrdered By: Chris Pierre on 08-02-2023 WBC corrected for nucl RBC Auto (Bld) [#/Vol]6.4 10*3/uL4.1-10.5FKeenan Private HospitalLymphocytes Auto (Bld) [#/Vol]Ordered By: Chris Pierre on 86-99-8277Sgsaprrrhsi (Bld) [#/Vol]1.0 10*3/uL1.00-4.8[facility] HospitalLymphocytes/100 WBC Auto (Bld)Ordered By: Chris Pierre on 64-06-9457Jwauhljjbcy/100 WBC (Bld)15.4 %.[facility] HospitalMCH Auto (RBC) [Entitic mass]Ordered By: Chris Pierre on 39-54-3159REG (RBC) [Entitic mass]32.8 pg27.5-35.2FKeenan Private HospitalMCHC Auto (RBC) [Mass/Vol]Ordered By: Chris Pierre on 17-00-6335MPPP (RBC) [Mass/Vol]34.5 g/dL 32.5-35.6FKeenan Private HospitalMCV Auto (RBC) [Entitic vol]Ordered By: Chris Pierre on 23-20-8759RHC (RBC) [Entitic vol]95.1 fL83.5-101[facility] HospitalMonocytes Auto (Bld) [#/Vol]Ordered By: Chris Pierre on 42-84-0377Lkkbbwohh (Bld) [#/Vol]0.6 10*3/uL0.0-0.8[facility] HospitalMonocytes/100 WBC Auto (Bld)Ordered By: Chris Pierre on 08-02-2023 Monocytes/100 WBC (Bld)8.9 %.[facility] HospitalNeutrophils Auto (Bld) [#/Vol]Ordered By: Chris Pierre on 58-53-3986Fwunrpazmcg (Bld) [#/Vol] 4.7 10*3/uL1.8-7.7FKeenan Private HospitalNeutrophils/100 WBC Auto (Bld)Ordered By: Chris Pierre on 11-75-6862Vderdqmqxrn/100 WBC (Bld)73.4 %. [facility] HospitalNo Panel InformationOrdered By: Chris Pierre on 78-73-9280Liuatyjqq GFR (CKD-EPI)> 60.0 mL/MinCincinnati Shriners HospitalPharmacy Creatinine Clearance (ChemN/AFKeenan Private Hospital Nucleated erythrocytes [Presence] in Blood by Automated countOrdered By: Chris Pierre on 74-22-3175Lszizhboy RBC Auto Ql (Bld)0.8 /100{WBC}0-0.5FKeenan Private HospitalPlatelet adequacy [Presence] in Blood by Light microscopy Ordered By: Chris Pierre on 36-94-5071Uaswcbyqz LM Ql (Bld)DecreasedNormal [facility] HospitalPlatelet mean volume Auto (Bld) [Entitic vol] Ordered By: Chris Pierre on 67-07-2262Pdrnnjls mean volume (Bld) [Entitic vol] 10.1 fL6.6-10.1FKeenan Private HospitalPlatelet morphology finding [Identifier] in BloodOrdered By: Chris Pierre on 26-43-7605Bsftsyrf morphology finding Nom (Bld)NormalNormSt. Elizabeth HospitalPlatelets Auto (Bld) [#/Vol]Ordered By: Chris Pierre on 11-99-0674Hgzwvzsnq (Bld) [#/Vol]143 10*3/hL739-792DdfqpxuqxCincinnati Shriners HospitalPotassium [Moles/volume] in Serum or PlasmaOrdered By: Chris Pierre on 01-66-0172Zwpyvkkvw [Moles/Vol]4.3 mmol/L3.5-5.1FKeenan Private HospitalProtein [Mass/volume] in Serum or PlasmaOrdered By: Chris Pierre on 70-95-3065Xholbom [Mass/Vol]6.1 g/dL6.4-8.9 [facility] HospitalRBC Auto (Bld) [#/Vol]Ordered By: Chris Pierre on 58-10-2390KJV (Bld) [#/Vol]4.97 10*6/uL3.90-5.60[facility] HospitalRBC morphologyOrdered By: Chris Pierre on 93-30-2435EPA morphology finding Nom (Bld)NormalNormalEast [place] Regional Hospitalerum or plasma albumin/globulin mass ratioOrdered By: Chris Pierre on 08-02-2023 Albumin/Globulin [Mass ratio]2.1 {ratio}[facility] [place] [facility] Hospitalerum or plasma anion gap determinationOrdered By: Chris Pierre on 67-05-0560Kmoyd gap [Moles/Vol]9.4 mmol/L6.0-15.0[facility] [place] [facility] Hospitalerum or plasma high density lipoprotein (HDL) cholesterol measurementOrdered By: Chris Pierre on 76-50-0298Zrbhhpgkjlo in HDL [Mass/Vol]39 mg/kO76-26SlmcasfvoCincinnati Shriners HospitalComment on above:HDL CHOL ATP-III CLASSIFICATION Cardiovascular RiskHDL > or equal to 60 mg/dL LOWHDL < 40 mg/dL HIGHSerum or plasma total cholesterol/high density lipoprotein (HDL) cholesterol mass rat Ordered By: Chris Pierre on 59-19-2970Rhnsvkiwuwr.total/Cholesterol in HDL [Mass ratio]3.3 {ratio}<5.0[facility] [place] [facility] Hospitalodium [Moles/volume] in Serum or PlasmaOrdered By: Chris Pierre on 13-92-2319Pzhtfv [Moles/Vol]140 mmol/G779-948TltntccxvCincinnati Shriners HospitalTriglyceride [Mass/volume] in Serum or PlasmaOrdered By: Chris Pierre on 08-02-2023 Triglyceride [Mass/Vol]183 mg/dL0-149[facility] HospitalComment on above:TRIG ATP III CLASSIFICATIONTRIG less than 150 mg/dL NormalTRIG 150-199 mg/dL Borderline highTRIG 200-500 mg/dL High TRIG greater than 500 mg/dL Very highStandard traceable to the Center for Disease Conrtrol and Prevention (CDC) test method.Urea nitrogen [Mass/volume] in Serum or PlasmaOrdered By: Chris Pierre on 07-44-1454Iqvg nitrogen [Mass/Vol]17 mg/dL7-25[facility] HospitalWBC Auto (Bld) [#/Vol]Ordered By: Chris Pierre on 68-19-7634WMA (Bld) [#/Vol]6.4 10*3/uL4.1-10.5FKeenan Private Hospital24 hour urine sodium measurement (moles/time)Ordered By: Jesusita Small on 24-01-5432Jbchwu (24H U) [Moles/Time]323 mmol/2440-220[facility]24 hour urine uric acid measurement (mass/time)Ordered By: Jesusita Small on 07-09-2023 Urate (24H U) [Mass/Time]716.8 mg/24 hr136.1-771.1FKeenan Private HospitalComment on above:Performed at: [address] [id number] Director: Rc Chavez PhD, Phone: [phone] biopsyOrdered By: Jesusita Small on 97-82-9887XU mlqfoi84 HoursCincinnati Shriners HospitalCalcium [Mass/time] in 24 hour UrineOrdered By: Jesusita Small on 66-41-5884Jophzqq (24H U) [Mass/Time]145 mg/24 hr0-320[facility] HospitalCalcium [Mass/volume] in 24 hour UrineOrdered By: Jesusita Small on 66-44-5201Zxwyfan (24H U) [Mass/Vol]7.3 mg/dLNot EstabPromedica Flower HospitalCreatinine [Mass/volume] in UrineOrdered By: Jesusita Small on 22-30-8741Tgpeyvtjvp (U) [Mass/Vol]80.00 mg/dL14.00-26.00[facility] HospitalMagnesium [Mass/time] in 24 hour UrineOrdered By: Jesusita Small on 36-88-2910Fwudtloal (24H U) [Mass/Time]104.9 mg/24 hr12.0-293.0 [facility] HospitalMagnesium [Mass/volume] in UrineOrdered By: Jesusita Small 53-46-1590Lcyzqbmhb (U) [Mass/Vol]5.3 mg/dLNot EstabPromedica Flower HospitalNo Panel InformationOrdered By: Jesusita Small on 45-97-7662Ogsie Citric Baxq229 mg/LUndefinedCinc[facility] Shriners Hospital Comment on above:This test was developed and its performance characteristicsdetermined by [employer]. It has not been cleared orapproved by the Food and Drug Administration.Urine Citric Acid 24 Dpxd467 mg/24 xf752-2134 [facility] HospitalComment on above:Performed at: [facility] [id number] Director: Lorena Carrillo MD, Phone: [phone] Creatinine 24 Hour1.58 g/24 hr1.00-2.09[facility] HospitalOxalate [Mass/time] in 24 hour UrineOrdered By: Jesusita Small on 60-91-2607Mjxnxjz (24H U) [Mass/Time]18 mg/24 hr7-44[facility] HospitalComment on above:Performed at: [facility] [id number] Director: Lorena Carrillo MD, Phone: [phone] [Mass/volume] in UrineOrdered By: Jesusita Small on 07-09-2023 Oxalate (U) [Mass/Vol]9 mg/LUndefinedCincinnati Shriners HospitalPhosphate [Mass/time] in 24 hour UrineOrdered By: Jesusita Small on 55-80-6593Mtpjcwzse (24H U) [Mass/Time]847 mg/24 yh089-6065KqoadpusuCincinnati Shriners Hospital Phosphate [Mass/volume] in UrineOrdered By: Jesusita Small on 07-09-2023 Phosphate (U) [Mass/Vol]42.8 mg/dLNot Estab.[facility] Sodium [Moles/volume] in UrineOrdered By: Jesusita Small on 02-53-9539Irnquc (U) [Moles/Vol]163.0 mmol/LFKeenan Private HospitalComment on above:No reference range establishedUrine uric acid measurement (mass/volume)Ordered By: Jesusita Small on 61-69-1034Wwcsm (U) [Mass/Vol]36.2 mg/dLNot Estab.[facility] HospitalUrine volume measurementOrdered By: Jesusita Small on 05-54-5871Lhhmqnte volume (U)1980 mlCincinnati Shriners HospitalTobacco Screening.on 41-13-1689Agun risk assessmenta) No falls within the last yearAt[facility] 250 DO Work Phone: Tobacco use status CPHSb) [facility]- [place] 250 DO Work Phone: NO CARDIAC STRESS/REST INJECTIONon 93-33-6564WCP CARDIAC STRESS/REST INJECTIONMRN: [id number] Patient Name: JESSENIA PYLE STUDY: MYOCARDIAL PERFUSION STRESS TEST WITH LEXISCAN Performing facility: [facility], [address], [address], [place], [place] [address] Provider: Shanthi Lancaster MD, FACC PCP: Dr. Oracio Pierre Supervising provider: Jethro Bernardo MD, FACC INDICATION: Chest Pain; SOB; HISTORY: Gender: M; Age: 78 y/o ; Height: 187.96 cm; Weight: 102.21892 kg. Diabetes; High Cholesterol; HTN; Chest Pain; SOB; Quit smoking 51 years ago. Cardiac catheterization on 2011. COMPARISON: Previous nuclear testing completed at [facility]. ACCESSION NUMBER(S): [id number]; [id number]; [id number] ORDERING CLINICIAN: SHANTHI LANCASTER TECHNIQUE: ONE DAY [...] interval changes are seen. Electronically signed by: Anni SANDERSSt. 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 : chest pain- sob Essential hypertension Start: Bisoprolol-hydroCHLOROthiazide 10-6.25 MG Oral Tablet; TAKE 1 TABLET DAILY Overweight with body mass index (BMI) of 28 to 28.9 in adult Healthy Weight Tips; Status:Complete - Retrospective Authorization; Done: 21Mar2023 Some eating tips that can help you lose weight.; Status:Complete - Retrospective Authorization; Done: 21Mar2023 SocHx: Former smoker Tobacco Use Screening; Status:Complete; Done: 23Vuu8678 Patient Instructions Please bring all medicines, vitamins, [...] taken at lunch time. Stop Triamterene-hctz Restart Bisoprolol-hydrochlorothiazide Follow up after testing completed Chief Complaint [...] intolerance to MICHELLE inhibitors and/or angiotensin receptor blockers- cough could be related to this or partly related to this 10. Patient is on albuterol inhaler, he says it does not make any difference in his breathing, if he has underlying reactive airway disease, could bisoprolol be a contributing factor to his shortnessof breath? 11. Could bisoprolol be causing chronotropic [...] BNP level January 11 (more content not included)...NormalUH TouchworksTobacco Screening.on 36-69-7507Baqz risk assessmenta) No falls within the last yearMP- [facility] [employer] 250 DO Work Phone: Tobacco use status CPHSb) NoMP-[facility]- [employer] 250 DO Work Phone: Calcium [Mass/volume] in Serum or PlasmaOrdered By: Shanthi Lancaster on 25-23-8967Oxwfjcx [Mass/Vol]9.7 mg/dL8.6-10.3FKeenan Private HospitalCarbon dioxide, total [Moles/volume] in Serum or PlasmaOrdered By: Shanthi Lancaster on 04-53-4968TA6 [Moles/Vol]30.6 mmol/L21.0-31.0[facility] HospitalChloride [Moles/volume] in Serum or PlasmaOrdered By: Shanthi Lancaster on 79-69-6593Gmfzqgor [Moles/Vol]102 mmol/J60-883GwjsgveojCincinnati Shriners HospitalCreatinine [Mass/volume] in Serum or PlasmaOrdered By: Shanthi Lancaster on 13-45-6266Uuxmvksvdy [Mass/Vol]1.01 mg/dL0.70-1.30[facility] HospitalGlucose [Mass/volume] in Serum or PlasmaOrdered By: Shanthi Lancaster on 35-63-8699Uxvvuvd [Mass/Vol]216 mg/mD11-453UvohboykfCincinnati Shriners Hospital Comment on above:ADA recommended reference rangeRandom Glucose Reference Range is dependent on time and content of last meal. Glucose of more than 200 mg/dL in a nonstressed, ambulatory subject supports the diagnosisof Diabetes Mellitus.No Panel InformationOrdered By: Shanthi Lancaster on 55-12-3020Eepohlfhi GFR (CKD-EPI)> 60.0 mL/MinCincinnati Shriners HospitalPharmacy Creatinine Clearance (Chem N/[facility] HospitalNo Panel Informationon 03-07-2023> 60.0 NormalMP-[facility]-[place] 250 DO Work Phone: [phone]\S\10.3Kfpsmw2.0-15.0MP-[facility]-[place] 250 DO Work Phone: [phone]\S\9.7Nunkjd7.6-10.3MP-[facility]-[place] 250 DO Work Phone: Comment on above:PERFORMED BY:[facility] [place]OO[place], [place] [phone] MEDICAL DIRECTORGWEN CRUZ M.D.30.6\S\30.4Aqxocm34.0-31.0MP-[facility]-[place] 250 DO Work Phone: [phone]\S\527Dfoqog89-680AS-Ixwlb [place] [facility]-[place] 250 DO Work Phone: [phone]\S\5.2above high threshold3.5-5.1MP-[facility]-[place] 250 DO Work Phone: [phone]\S\390Ghkrlv062-903MG-Pqply [place] [facility]-[place] 250 DO Work Phone: [phone]\S\1.97Iuvnhk7.70-1.30MP-[facility]-[place] 250 DO Work Phone: [phone]\S\95Lmlfow5-08LO-Npyrr [place] [facility]-[place] 250 DO Work Phone: [phone]\S\216above high bnjhtzloz87-432ZO-Hzcau [place] [facility]-[place] 250 DO Work Phone: Comment on above:Random Glucose Reference Range is dependent on time and content of last meal. Glucose of more than 200 mg/dL in a nonstressed, ambulatory subject supports the diagnosis of Diabetes Mellitus. ADA recommended reference rangePotassium [Moles/volume] in Serum or PlasmaOrdered By: Shanthi Lancaster on 37-74-7516Iymkbizxw [Moles/Vol]5.2 mmol/L3.5-5.1FCorey Hospitalerum or plasma anion gap determinationOrdered By: Shanthi Lancaster on 90-01-0137Dkljj gap [Moles/Vol]10.6 mmol/L6.0-15.0[facility] [place] [facility] Hospitalodium [Moles/volume] in Serum or PlasmaOrdered By: Shanthi Lancaster on 21-88-9314Jkivkt [Moles/Vol]138 mmol/I665-633InbzelgiiCincinnati Shriners HospitalUrea nitrogen [Mass/volume] in Serum or PlasmaOrdered By: Shanthi Lancaster on 35-46-6137Tbzd nitrogen [Mass/Vol]20 mg/dL7-25[facility] Office Visit (Cardiology)on 15-33-7751Qphdab-up visitDiagnoses/Problems Assessed 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 pectoris (414.01) (I25.10) [...] in adult (278.02,V85.25) (E66.3,Z68.29) Orders 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 pectoris, Essential hypertension, [...] in adult Healthy Weight Tips; Status:Complete; Done: 20Mmz5388 Some eating tips that can help you lose weight.; Status:Complete; Done: 91Jwn9583 SocHx: Former smoker Tobacco Use Screening; Status:Complete; Done: 68Jfk5408 Unlinked Stop: Doxazosin Mesylate 2 MG Oral [...] intolerance to MICHELLE inhibitors and/or angiotensin receptor blockers- cough could be related to this or partly related to this 10. Patient is on albuterol inhaler, he says it does not make any difference in his breathing, if he has underlying reactive airway disease, could bisoprolol be a contributing factor to his shortnessof breath? 11. Could bisoprolol be causing chronotropic [...] he called and told us that the potassiumcitrate is for prevention of kidney stones, so we reinstituted it 4. Basic (more content not included)...NormalUH TouchworksTobacco Screening.on 04-92-3401Jheln depression screening assessmentAshley Regional Medical Center-United HospitalBrooke 250 DO Work Phone: Fall risk assessmenta) No falls within the last year -[facility] 250 DO Work Phone: Tobacco use status CPHSb) NoMP-[facility] [place] 250 DO Work Phone: Cardiac Stress Teston 08-53-2452Yyzyzxu Stress Test [facility]us[facility] [address] [place] [address], [address] [place] [address] Exercise Stress Test Patient Name: JESSENIA Ordering Physician: Tonny PYLE Study Date: 02/06/2023 Reading Physician: [id number] Jethro Bernardo MD, [facility] MRN/PID: [id number] Supervising [id number] Jethro Bernardo MD, Physician: [facility]ENTERHeri Accession/Order#: [id number] Referring Physician: SHANTHI LANCASTER Date of : 1945 PCP: Anand Pierre MD Gender: M Fellow: Height: 187.96 cm Nurse: Fouzia Ponce RN Weight: 105.24 kg Instructor Business Education: HANNAH BSA: 2.31 m2 Technologist: BMI: 29.79 kg/m2 Additional Staff: Age: 77 years cc report to: Patient Location: cc report to: Tonny Study Type: Cardiac Stress Test Diagnosis/ICD: R06.02-Shortness of breath Indication: Dyspnea Procedure/CPT: Stress Test Interpretation-98901; Stress Test Supervision-[id number] Falls Risk: Low: Patient has low risk [...] normal sinus rhythm. Stress Stage Data: + +--+------+-------+ HR Sys BP Pathak BP + +--+------+-------+ Baseline Resting 65 136 82 + +--+------+-------+ Baseline Standing 69 128 86 + +--+------+-------+ Stage I 93 138 78 + +--+------+-------+ Stage II 99 154 76 + +--+------+-------+ Recovery ECG: The heart rate recovery was normal. + +--+------+-------+ HR Sys BP Pathak BP + +--+------+-------+ Recovery I 88 154 76 + +--+------+-------+ Recovery II 79 148 82 + +--+------+-------+ Recovery III 66 142 86 + +--+------+-------+ Recovery IV 70 132 82 + +--+------+-------+ Summary: 1. 1_nondiagnostic exercise tolerance test after completing 4 minutes and 39 seconds on a Shekhar protocol achieving only 68% of predicted maximal heart rate and workload of 6.5 METS. The pressure roseto 154/76 mmHg. The test ended due to [...] question. 2. Adequate level of stress achieved. [id number] Jethro Bernardo MD, [facility] Electronically signed on 02/06/2023 at 8:16:45 PM Final [facility]Card[facility] 250 DO Work Phone: Office Visit (Cardiology)on 37-72-0011Nyrjlj-up visit Diagnoses/Problems Assessed Essential hypertension (401.9) (I10) Hyperlipidemia (272.4) (E78.5) 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 pectoris (414.01) (I25.10) Former smoker (V15.82) (Z87.891) quit 1972 Cough (786.2) (R05.9) Shortness of breath (786.05) (R06.02) Arterial hypotension (458.9) (I95.9) Encounter to discuss test results (V65.49) (Z71.2) Overweight with body mass index (BMI) of 29 to 29.9 in adult (278.02,V85.25) (E66.3,Z68.29) Orders Arterial hypotension, Essential hypertension Renew: Bisoprolol-hydroCHLOROthiazide 5-6.25 MG Oral Tablet; TAKE 1 TABLET [...] and result(s) with the patient: chest x-ray, laboratorytests and CT SCAN OF LUNG Chief Complaint [...] breath. reports that the shortness of breath isvery prominent, chronically is class III. No orthopnea [...] intolerance to MICHELLE inhibitors and/or angiotensin receptor blockers- cough could be related to this or partly related to this 10. Patient is on albuterol inhaler, he says it does not make any difference in his breathing, if he has underlying reactive airway disease, could bisoprolol be a contributing factor to his shortnessof breath? 11. Could bisoprolol be causing chronotropic [...] are subacute possibly chronic. (more content not included)...NormalUH TouchworksTobacco Screening.on 02-04-2023 Adult depression screening assessmentNoSt. [facility] Hospital [employer] 250 DO Work Phone: Fall risk assessmenta) No falls within the last year [facility] EnterMediaChi Mercy [facility] Valley CityHowe 250 DO Work Phone: Tobacco use status CPHSb) NoMProvidence [facility] [employer] 250 DO Work Phone: Alanine aminotransferase [Enzymatic activity/volume] in Serum or PlasmaOrdered By: Chris Pierre on 87-00-5847ZMJ [Catalytic activity/Vol]54 U/L7-52[facility] HospitalAlbumin [Mass/volume] in Serum or Plasma by Bromocresol green (BCG) dye binding methoOrdered By: Chris Pierre on 90-87-8123Jjyptdy BCG dye [Mass/Vol]4.3 g/dL3.5-5.7FKeenan Private HospitalAlkaline phosphatase [Enzymatic activity/volume] in Serum or PlasmaOrdered By: Chris Pierre on 56-67-7743ZYK [Catalytic activity/Vol]65 U/L 34-104[facility]riners HospitalAspartate aminotransferase [Enzymatic activity/volume] in Serum or PlasmaOrdered By: Chris Pierre on 55-36-9258QRG [Catalytic activity/Vol]41 U/W63-25QankuerpaCincinnati Shriners HospitalBasophils Auto (Bld) [#/Vol]Ordered By: Chris Pierre on 50-68-1927Aianmqpud (Bld) [#/Vol]0.0 10*3/uL0.0-0.2FKeenan Private HospitalBasophils/100 WBC Auto (Bld)Ordered By: Chris Pierre on 98-87-3598Yuogfuxrh/100 WBC (Bld)0.6 %. [facility] HospitalBilirubin Test strip Ql (U)Ordered By: Chris Pierre on 38-84-5186Cmoskervn Ql (U)NegativeNegativeCincinnati Shriners HospitalBilirubin.total [Mass/volume] in Serum or PlasmaOrdered By: Chris Pierre on 09-18-7447Ihntyfkcq [Mass/Vol]1.2 mg/dL0.3-1.0[facility] HospitalCOVID-19 Detected/Not DetectedOrdered By: Shanthi Lancaster on 01-28-2023 SARS-CoV-2 (COVID-19) RNA VASYL+non-probe Ql (Nph)Not detectedNot DetectLakeHealth TriPoint Medical CenterComment on above:This is a duplicate RP2.1 COVID (PCR) result to be used for statistical tracking purpose only.Calcium [Mass/volume] in Serum or PlasmaOrdered By: Chris Pierre on 12-27-7005Wpciyjx [Mass/Vol]9.1 mg/dL8.6-10.3FKeenan Private HospitalCarbon dioxide, total [Moles/volume] in Serum or PlasmaOrdered By: Chris Pierre on 59-30-0962VC3 [Moles/Vol]27.2 mmol/L21.0-31.0[facility] HospitalChloride [Moles/volume] in Serum or PlasmaOrdered By: Chris Pierre on 01-28-2023 Chloride [Moles/Vol]106 mmol/N71-945FmfmfjlljCincinnati Shriners HospitalCholesterol [Mass/volume] in Serum or PlasmaOrdered By: Chris Pierre on 01-28-2023 Cholesterol [Mass/Vol]131 mg/kH679-492ZkxaanmqpCincinnati Shriners HospitalComment on above:Chol less than 200 mg/dl low riskChol 201-239 mg/dl borderline riskChol 240 mg/dl and greater high riskCholesterol in LDL Calc [Mass/Vol]Ordered By: Chris Pierre on 44-85-8517Fvuuydmjhch in LDL [Mass/Vol]60 mg/dL0-100[facility] HospitalComment on above:LDL ATP III CLASSIFICATIONLDL less than 100 mg/dL OptimalLDL 100-129 mg/dL Near or above eeckiyhKAG293-627 mg/dL Borderline highLDL 160-189 mg/dL HighLDL greater than 189 mg/dL Very high Cholesterol in VLDL Calc [Mass/Vol]Ordered By: Chris Pierre on 01-28-2023 Cholesterol in VLDL [Mass/Vol]26 mg/dLCincinnati Shriners HospitalColor Auto (U)Ordered By: Chris Pierre on 40-58-7491Wyjop (U)YellowYellowCincinnati Shriners HospitalCreatinine [Mass/volume] in Serum or PlasmaOrdered By: Chris Pierre on 81-24-6985Nypcomwwlu [Mass/Vol]0.93 mg/dL0.70-1.30[facility] HospitalEosinophils Auto (Bld) [#/Vol]Ordered By: Chris Pierre on 89-19-9667Lwzkhvqgivc (Bld) [#/Vol]0.1 10*3/uL0.0-0.45[facility] HospitalEosinophils/100 WBC Auto (Bld)Ordered By: Chris Pierre on 79-57-8369Qafsavsyiwl/100 WBC (Bld)2.4 %.[facility] Erythrocyte distribution width Auto (RBC) [Ratio]Ordered By: Chris Pierre on 70-11-1624Gqgnglnxrlo distribution width (RBC) [Ratio]12.5 %12.0-14.8[facility] HospitalGlobulin Calc (S) [Mass/Vol]Ordered By: Chris Pierre on 78-44-2646Rvvxhbfh (S) [Mass/Vol]1.6 g/dLCincinnati Shriners Hospital Glucose [Mass/volume] in Serum or PlasmaOrdered By: Chris Pierre on 01-28-2023 Glucose [Mass/Vol]168 mg/jR89-707ZinpzpeknCincinnati Shriners HospitalComment on above:ADA recommended reference rangeRandom Glucose Reference Range is dependent on time and content of last meal. Glucose of more than 200 mg/dL in a nonstressed, ambulatory subject supports the diagnosisof Diabetes Mellitus. Glucose mean value [Mass/volume] in Blood Estimated from glycated hemoglobin Ordered By: Chris Pierre on 11-59-7664Gkfhhev glucose Estimated from glycated hemoglobin (Bld) [Mass/Vol]131 mg/dLCincinnati Shriners HospitalHematocrit Auto (Bld) [Volume fraction]Ordered By: Chris Pierre on 44-64-3788Zjghgzmfxs (Bld) [Volume fraction]48.0 %38.8-50.0[facility] Hemoglobin A1c percentageOrdered By: Chris Pierre on 99-94-7431JnQ3l (Bld) [Mass fraction]6.2 %4.3-5.6FKeenan Private HospitalComment on above: Increased risk for diabetes: 5.7 - 6.4diabetes: >6.4glycemic control for adults with diabetes: <7.0Hemoglobin [Mass/volume] in BloodOrdered By: Chris Pierre on 47-88-9035Xsjcwkzldx (Bld) [Mass/Vol]16.8 g/dL13.0-17.0[facility] HospitalKetones Auto test strip (U) [Mass/Vol]Ordered By: Chris Pierre on 26-36-0726Chuzbwx (U) [Mass/Vol]NegativeNegativeCincinnati Shriners HospitalLeukocytes [#/volume] corrected for nucleated erythrocytes in Blood by Automated counOrdered By: Chris Pierre on 95-88-8534CRY corrected for nucl RBC Auto (Bld) [#/Vol]5.0 10*3/uL4.1-10.5FKeenan Private Hospital Lymphocytes Auto (Bld) [#/Vol]Ordered By: Chris Pierre on 01-28-2023 Lymphocytes (Bld) [#/Vol]0.9 10*3/uL1.00-4.8[facility] Lymphocytes/100 WBC Auto (Bld)Ordered By: Chris Pierre on 01-28-2023 Lymphocytes/100 WBC (Bld)17.6 %.[facility] HospitalMCH Auto (RBC) [Entitic mass]Ordered By: Chris Pierre on 02-97-7135NCS (RBC) [Entitic mass] 33.5 pg27.5-35.2FKeenan Private HospitalMCHC Auto (RBC) [Mass/Vol] Ordered By: Chris Pierre on 71-38-5255KPNP (RBC) [Mass/Vol]34.9 g/dL32.5-35.6 [facility] HospitalMCV Auto (RBC) [Entitic vol]Ordered By: Chris Pierre on 57-88-3196GJI (RBC) [Entitic vol]96.0 fL83.5-101[facility] HospitalMicroalbumin [Mass/volume] in UrineOrdered By: Chris Pierre on 82-36-2413Jdlcdis DL <= 20 mg/L (U) [Mass/Vol]2.2 mg/dL0.0-1.8[facility] HospitalMonocytes Auto (Bld) [#/Vol]Ordered By: Chris Pierre on 09-93-6899Wwnicjkyn (Bld) [#/Vol]0.5 10*3/uL0.0-0.8[facility] HospitalMonocytes/100 WBC Auto (Bld)Ordered By: Chris Pierre on 01-28-2023 Monocytes/100 WBC (Bld)10.1 %.[facility] HospitalNatriuretic peptide B [Mass/Vol]Ordered By: Shanthi Lancaster on 55-38-1762Gmjrcdqsnkj peptide B (Bld) [Mass/Vol]50.0 pg/mL5-100[facility] HospitalNeutrophils Auto (Bld) [#/Vol]Ordered By: Chris Pierre on 25-81-5563Rgwcgrcjjbo (Bld) [#/Vol] 3.5 10*3/uL1.8-7.7FKeenan Private HospitalNeutrophils/100 WBC Auto (Bld)Ordered By: Chris Pierre on 56-31-9337Kmcfncxefcw/100 WBC (Bld)69.3 %. [facility] HospitalNitrite Test strip Ql (U)Ordered By: Chris Pierre on 93-82-7587Jnmbdtd Ql (U)NegativeNegativeCincinnati Shriners HospitalNo Panel Informationon 10-95-0480LL-[facility] [employer] 250 DO Work Phone: [phone]\S\50.0Mgsxta3-241EJ-DzolaBigfork Valley Hospital 250 DO Work Phone: Comment on above:PERFORMED BY:[place] [id number] [place], [place] [phone] MEDICAL DIRECTORGWEN CRUZ M.D.No Panel InformationOrdered By: Chris Pierre on 85-51-7662Qgdkhabqz GFR (CKD-EPI)> 60.0 mL/MinCincinnati Shriners Hospital Nucleated erythrocytes [Presence] in Blood by Automated countOrdered By: Chris Pierre on 63-03-3402Pcmqhvwed RBC Auto Ql (Bld)0.4 /100{WBC}0-0.5FKeenan Private HospitalOffice Visit (Cardiology)on 37-61-8342Dwbemt-up visit Diagnoses/Problems Assessed Shortness of breath (786.05) (R06.02) Cough (786.2) (R05.9) Essential hypertension (401.9) (I10) Hyperlipidemia (272.4) (E78.5) Medication course changed (V58.69) (Z79.899) 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 pectoris (414.01) (I25.10) [...] agrees to review all his medications, and u pdate us. She is very concerned about his [...] to activity. It was reported to show normalperfusion. Assessment: 1. Hypertension-at target 2. Hyperlipidemia-on rosuvastatin, [...] intolerance to MICHELLE inhibitors and/or angiotensin receptor blockers- cough could be related to this or partly related to this 10. Patient is on albuterol inhaler, he says it does not make any difference in his breathing, if he has underlying reactive airway disease, could bisoprolol be a contributing factor to his shortnessof breath? 11. Could bisoprolol be causing chronotropic [...] change in his m (more content not included)...NormalUH TouchworksPlatelet mean volume Auto (Bld) [Entitic vol]Ordered By: Chris Pierre on 62-93-9870Adpyknrq mean volume (Bld) [Entitic vol]10.2 fL6.6-10.1 [facility] HospitalPlatelets Auto (Bld) [#/Vol]Ordered By: Chris Pierre on 78-85-5153Nbedlzphu (Bld) [#/Vol]116 10*3/nZ079-764LblojhqakCincinnati Shriners HospitalPotassium [Moles/volume] in Serum or PlasmaOrdered By: Chris Pierre on 56-00-7900Ikwyewrnq [Moles/Vol]4.7 mmol/L3.5-5.1FKeenan Private HospitalProstate specific Ag [Mass/volume] in Serum or PlasmaOrdered By: Chris Pierre on 56-12-6055Ybeagibx specific Ag [Mass/Vol]0.950 ng/mL 0.000-4.000[facility] HospitalProtein Auto test strip (U) [Mass/Vol]Ordered By: Chris Pierre on 87-70-6101Oegfhcg (U) [Mass/Vol]Negative NegativeCincinnati Shriners HospitalProtein [Mass/volume] in Serum or PlasmaOrdered By: Chris Pierre on 31-51-0525Reptnue [Mass/Vol]5.9 g/dL6.4-8.9 [facility] HospitalRBC Auto (Bld) [#/Vol]Ordered By: Chris Pierre on 81-90-8555HQQ (Bld) [#/Vol]5.00 10*6/uL3.90-5.60[facility] HospitalRespiratory pathogens DNA and RNA panel - Nasopharynx by VASYL with non-probe detectionOrdered By: Shanthi Lancaster on 92-62-3914Mdofcwexajt pathogens DNA and RNA panel VASYL+non-probe (Nph)[facility] Hospitalerum or plasma albumin/globulin mass ratioOrdered By: Chris Pierre on 01-28-2023 Albumin/Globulin [Mass ratio]2.7 {ratio}[facility] Hospitalerum or plasma anion gap determinationOrdered By: Chris Pierre on 05-29-3096Vknsw gap [Moles/Vol]12.5 mmol/L6.0-15.0[facility] Hospitalerum or plasma high density lipoprotein (HDL) cholesterol measurementOrdered By: Chris Pierre on 16-25-4215Sqtjvkmeaqv in HDL [Mass/Vol]44 mg/fN42-15RkzmniontCincinnati Shriners HospitalComment on above:HDL CHOL ATP-III CLASSIFICATION Cardiovascular RiskHDL > or equal to 60 mg/dL LOWHDL < 40 mg/dL HIGHSerum or plasma total cholesterol/high density lipoprotein (HDL) cholesterol mass rat Ordered By: Chris Pierre on 88-38-7255Epyallvxvgg.total/Cholesterol in HDL [Mass ratio]3.0 {ratio}<5.0[facility] Hospitalodium [Moles/volume] in Serum or PlasmaOrdered By: Chris Pierre on 03-60-6697[place] [Moles/Vol]141 mmol/K299-735VxqlghtaiEast Ohio Regional Hospitalpecific gravity Auto test strip (U) [Rel density]Ordered By: Chris Pierre on 01-28-2023 Specific gravity (U) [Rel density]1.0181.001-1.030[facility] HospitalThyrotropin [Units/volume] in Serum or PlasmaOrdered By: Chris Pierre on 54-60-9862HQT Qn0.76 m[IU]/L0.45-5.33[facility] HospitalTobacco Screening.on 08-53-0966Jjnpumw use status CPHSb) [place] [address] DO Work Phone: Triglyceride [Mass/volume] in Serum or PlasmaOrdered By: Chris Pierre on 85-79-3892Ctmoeykzkwcp [Mass/Vol]134 mg/dL0-149[facility] HospitalComment on above:TRIG ATP III CLASSIFICATIONTRIG less than 150 mg/dL NormalTRIG 150-199 mg/dL Borderline highTRIG 200-500 mg/dL High TRIG greater than 500 mg/dL Very highStandard traceable to the Center for Disease Conrtrol and Prevention (CDC) test method.Urea nitrogen [Mass/volume] in Serum or PlasmaOrdered By: Chris Pierre on 93-28-4303Tzbl nitrogen [Mass/Vol] 17 mg/dL7-25[facility] HospitalUrine clarity by refractometry automatedOrdered By: Chris Pierre on 11-40-4812Vwywvyx Refractometry automated (U)ClearClearFKeenan Private HospitalUrine glucose measurement by automated test strip (mass/volume)Ordered By: Chris Pierre on 01-28-2023 Glucose Auto test strip (U) [Mass/Vol]Normal mg/dLNoGalion Community HospitalUrine hemoglobin detection by automated test stripOrdered By: Chris Pierre on 02-97-3472Zcmihyedrc Auto test strip Ql (U)NegativeNegative [facility] HospitalUrine leukocyte esterase detection by automated test stripOrdered By: Chris Pierre on 76-97-4821Imboqytej esterase Auto test strip Ql (U)NegativeNegativeCincinnati Shriners HospitalUrobilinogen Auto test strip (U) [Mass/Vol]Ordered By: Chris Pierre on 61-97-3430Nskpgqlzexnl (U) [Mass/Vol]Normal mg/dLNoGalion Community HospitalWBC Auto (Bld) [#/Vol]Ordered By: Chris Pierre on 12-21-8835BYG (Bld) [#/Vol]5.0 10*3/uL 4.1-10.5FKeenan Private HospitalpH Auto test strip (U)Ordered By: Chris Pierre on 68-20-1868gR (U)5.5 [pH]5.0-9.0[facility] HospitalNo Panel Informationon 05-22-2775[place] [address] DO Work Phone: Office Visit (Cardiology)on 45-79-5394Cqmoad-up visit Diagnoses/Problems Assessed 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 pectoris (414.01) (I25.10) [...] DAILY DIRECTED Healthy Weight Tips; Status:Complete; Done: 24Dec2022 Some eating tips that can help you lose weight.; Status:Complete; Done: 24Dec2022 SocHx: Former smoker Tobacco Use Screening; Status:Complete; Done: 24Dec2022 Unlinked Stop: Losartan Potassium 50 MG Oral [...] your visit. [place] DOXAZOSIN SENT TO [facility] TO [facility] REPA[facility] OVER THE COUNTER CETIRIZINE 5MG DAILY STOP [...] as well. Active Problems Problems 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 pectoris (414.01) (I25.10) Chest pain, unspecified type (786.50) (R07.9) Essential hypertension (401.9) (I10) Former smoker (V15.82) (Z87.891) quit 1971 Hyperlipidemia (272.4) (E78.5) Hypertriglyceridemia (272.1) (E78.1) Normal cardiac ejection fraction Overweight with body mass index (BMI) of 29 to 29.9 in adult (278.02,V85.25) (E66.3,Z68.29) Patient new to provider Shortness of breath (786.05) (R06.02) Surgical History Problems Hi (more content not included)...NormalUH TouchworksTobacco Screening.on 36-96-4090Orlt risk assessmenta) [facility] the [facility] 250 [facility] Work Phone: Tobacco use status CPHSb) NoMP-[facility] [place] [address] DO Work Phone: Office Visit (Cardiology)on 67-16-5449Guzmpb-up visit Diagnoses/Problems Assessed Patient new to provider 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 pectoris (414.01) (I25.10) Essential hypertension (401.9) (I10) Hyperlipidemia (272.4) (E78.5) Overweight with body mass index (BMI) of 29 to 29.9 in adult (278.02,V85.25) (E66.3,Z68.29) Former smoker (V15.82) (Z87.891) quit 1971 Hypertriglyceridemia (272.1) (E78.1) Normal cardiac ejection fraction Orders 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 pectoris Renew: Aspirin 81 MG Oral Tablet Delayed Release; TAKE 1 TABLET DAILY Renew: Rosuvastatin Calcium 20 MG Oral Tablet; TAKE 1 TABLET DAILY 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 pectoris, Essential hypertension, Hyperlipidemia Renew: Isosorbide Mononitrate ER 30 MG Oral Tablet Extended Release 24 Hour; Take 1 tablet daily Overweight with body mass index (BMI) of 29 to 29.9 in adult Healthy Weight Tips; Status:Complete - Retrospective Authorization; Done: [id number] Some eating tips that can help you lose weight.; Status:Complete - Retrospective Authorization; Done: [id number] SocHx: Former smoker Tobacco Use Screening; Status:Complete; Done: [id number] Patient Instructions Please bring all medicines, vitamins, [...] Reviewed most recent office visit note by Faiht [place] on 03/27/2022. Laboratory data from July [...] Surgical History Problems History of Complete colonoscopy [id number] History of Foot surgery History of Knee surgery History of Lithotripsy History of Meniscus repair History of Renal lithotripsy History of Retinal laser photocoagulation History of Tonsillectomy Current Meds Medication NameInstruction amLODIPine Besylate 5 MG Oral TabletTAKE 1 TABLET DAILY. Aspirin 81 MG Oral Tablet Delayed ReleaseTAKE 1 TABLET DAILY. Bisoprolol-hydroCHLOROthiazide 10-6.25 MG Oral TabletTAKE 1 TABLET DAILY. Ezetimibe 10 MG Oral TabletTAKE 1 TABLET AT BEDTIME. Isosorbide Mononitrate ER 30 MG Oral Tablet Extended Release 24 HourTake 1 tablet daily Lisinopril 10 MG Oral TabletTAKE 1 TABLET DAILY. Multi Vitamin TABSTAKE 1 TABLET DAILY. Nitroglycerin 0.4 MG Sublingu (more content not included)...NormalUH TouchHaversack Tobacco Screening.on 25-12-0271Dldug depression screening assessmentNoSt. Elizabeth Hospital [employer] DO Work Phone: Fall risk assessmenta) No falls within the last year [facility] [employer] 250 DO Work Phone: Tobacco use status CPHSb) [facility]MProv[facility] [employer] 250 DO Work Phone: Albumin [Mass/volume] in Serum or PlasmaOrdered By: Chris Pierre on 02-17-8554Bhihacc [Mass/Vol]4.3 g/dL3.2-5.5FKeenan Private HospitalAnisocytosis LM Ql (Bld)Ordered By: Chris Pierre on 08-02-2022 Anisocytosis Ql (Bld)SlightCincinnati Shriners HospitalBasophils Auto (Bld) [#/Vol]Ordered By: Chris Pierre on 42-82-2616Ekkqeljyh (Bld) [#/Vol]0.0 10*3/uL0.0-0.2FKeenan Private HospitalBasophils/100 WBC Auto (Bld) Ordered By: Chris Pierre on 98-66-5904Sjefwkbni/100 WBC (Bld)0.6 %.[facility] HospitalCholesterol [Mass/volume] in Serum or PlasmaOrdered By: Chris Pierre on 27-77-9697Smbixjrzhfp [Mass/Vol]173 mg/gP476-679XfuchbrwyCincinnati Shriners HospitalComment on above:Chol less than 200 mg/dl low riskChol 201-239 mg/dl borderline riskChol 240 mg/dl and greater high riskCholesterol in LDL Calc [Mass/Vol]Ordered By: Chris Pierre on 89-28-5011Vazmrbuxpqs in LDL [Mass/Vol]93 mg/dL0-100[facility] HospitalComment on above:LDL ATP III CLASSIFICATIONLDL less than 100 mg/dL OptimalLDL 100-129 mg/dL Near or above npqhfvpWHQ354-010 mg/dL Borderline highLDL 160-189 mg/dL HighLDL greater than 189 mg/dL Very highCholesterol in VLDL Calc [Mass/Vol]Ordered By: Chris Pierre on 33-02-1716Gqmozlyecsa in VLDL [Mass/Vol]31 mg/dLCincinnati Shriners HospitalCreatinine and Glomerular filtration rate.predicted panel (S/P/Bld)Ordered By: Chris Pierre on 11-98-7466Ugxqzrosxs [Mass/Vol]1.02 mg/dL 0.64-1.27[facility] HospitalEosinophils Auto (Bld) [#/Vol]Ordered By: Chris Pierre on 50-87-9090Yamexjxgmak (Bld) [#/Vol]0.1 10*3/uL0.0-0.45 [facility] HospitalEosinophils/100 WBC Auto (Bld)Ordered By: Chris Pierre on 62-09-2233Rswgcwcypdn/100 WBC (Bld)2.4 %.[facility] HospitalErythrocyte distribution width Auto (RBC) [Ratio]Ordered By: Chris Pierre on 23-96-8771Pxdpfvyquel distribution width (RBC) [Ratio]13.0 % 12.0-14.8[facility] HospitalEstimated glomerular filtration rate (GFR) non- AmericanOrdered By: Chris Pierre on 21-61-1229TFX/1.73 sq M.predicted among non-blacks MDRD (S/P/Bld) [Vol rate/Area]> 60 mL/MinCincinnati Shriners HospitalGlobulin Calc (S) [Mass/Vol]Ordered By: Chris Pierre on 12-65-6935Ygkhgvys (S) [Mass/Vol]2.2 g/dLCincinnati Shriners Hospital Glucose mean value [Mass/volume] in Blood Estimated from glycated hemoglobin Ordered By: Chris Pierre on 54-45-8316Qzwnjqo glucose Estimated from glycated hemoglobin (Bld) [Mass/Vol]114 mg/dLCincinnati Shriners HospitalHematocrit Auto (Bld) [Volume fraction]Ordered By: Chris Pierre on 18-71-5812Ftiuxubaio (Bld) [Volume fraction]53.0 %38.8-50.0[facility] Hemoglobin A1c percentageOrdered By: Chris Pierre on 43-34-0984DzI9p (Bld) [Mass fraction]5.6 %4.3-5.6FKeenan Private HospitalComment on above: Increased risk for diabetes: 5.7 - 6.4diabetes: >6.4glycemic control for adults with diabetes: <7.0Hemoglobin [Mass/volume] in BloodOrdered By: Chris Pierre on 90-55-8994Kahqarrlgi (Bld) [Mass/Vol]18.1 g/dL13.0-17.0[facility] HospitalLeukocytes [#/volume] corrected for nucleated erythrocytes in Blood by Automated counOrdered By: Chris Pierre on 08-02-2022 WBC corrected for nucl RBC Auto (Bld) [#/Vol]5.7 10*3/uL4.1-10.5FKeenan Private HospitalLymphocytes Auto (Bld) [#/Vol]Ordered By: Chris Pierre on 04-95-8924Jqweswpcekv (Bld) [#/Vol]1.3 10*3/uL1.00-4.8[facility] HospitalLymphocytes/100 WBC Auto (Bld)Ordered By: Chris Pierre on 83-53-0954Hxnvzhmqjyv/100 WBC (Bld)21.9 %.[facility] Auto (RBC) [Entitic mass]Ordered By: Chris Pierre on 05-99-1291EIY (RBC) [Entitic mass]33.2 pg27.5-35.2FKeenan Private HospitalMCHC Auto (RBC) [Mass/Vol]Ordered By: Chris Pierre on 93-34-7847FRYH (RBC) [Mass/Vol]34.1 g/dL 32.5-35.6FKeenan Private HospitalMCV Auto (RBC) [Entitic vol]Ordered By: Chris Pierre on 13-92-4553CQR (RBC) [Entitic vol]97.2 fL83.5-101[facility] HospitalMicrocytes LM Ql (Bld)Ordered By: Chris Pierre on 84-69-3768Dskbnplskh Ql (Bld)SlightCincinnati Shriners HospitalMonocytes Auto (Bld) [#/Vol]Ordered By: Chris Pierre on 00-37-7514Hjlrkwpmh (Bld) [#/Vol]0.6 10*3/uL0.0-0.8[facility] HospitalMonocytes/100 WBC Auto (Bld)Ordered By: Chris Pierre on 46-02-6385Xfafriezh/100 WBC (Bld)10.7 %. [facility] HospitalNeutrophils Auto (Bld) [#/Vol]Ordered By: Chris Pierre on 17-01-3175Cbjrlztjjpg (Bld) [#/Vol]3.7 10*3/uL1.8-7.7FKeenan Private HospitalNeutrophils/100 WBC Auto (Bld)Ordered By: Chris Pierre on 60-36-4571Ymmkdzogwpe/100 WBC (Bld)64.4 %.[facility] No Panel InformationOrdered By: Chris Pierre on 79-81-2235Oqmgftllo GFR ()> 60 mL/MinCincinnati Shriners HospitalComment on above: GFR estimated reference range: According to KDOQI guidelines, <60 ml/min/1.73m2 is sufficient todiagnose a patient with chronic kidney disease.Pharmacy Creatinine Clearance (ChemN/AFKeenan Private HospitalNucleated erythrocytes [Presence] in Blood by Automated countOrdered By: Chris Pierre on 81-76-2666Abatbmvgc RBC Auto Ql (Bld)0.4 /100{WBC}0-0.5FKeenan Private HospitalPlatelet adequacy [Presence] in Blood by Light microscopyOrdered By: Chris Pierre on 46-10-7638Hnjneglns LM Ql (Bld)DecreasedNormalCincinnati Shriners HospitalPlatelet mean volume Auto (Bld) [Entitic vol]Ordered By: Chris Pierre on 36-56-5522Vhfjwzre mean volume (Bld) [Entitic vol]10.8 fL 6.6-10.1FKeenan Private HospitalPlatelet morphology finding [Identifier] in BloodOrdered By: Chris Pierre on 83-99-1182Xfzoavln morphology finding Nom (Bld)NormalNormalCincinnati Shriners HospitalPlatelets Auto (Bld) [#/Vol]Ordered By: Chris Pierre on 45-03-3474Odvkxklef (Bld) [#/Vol]140 10*3/jY251-650EbvbnempbCincinnati Shriners HospitalProtein [Mass/volume] in Serum or PlasmaOrdered By: Chris Pierre on 30-58-8805Aeekxhm [Mass/Vol]6.5 g/dL6.1-7.9 [facility] HospitalRB Auto (Bld) [#/Vol]Ordered By: Chris Pierre on 99-70-9843QWB (Bld) [#/Vol]5.45 10*6/uL3.90-5.60[facility] HospitalRB morphologyOrdered By: Chris Pierre on 18-47-8200MQR morphology finding Nom (Bld)N/AFCorey Hospitalerum or plasma alanine aminotransferase measurement without P-5'-P (enzymatic activiOrdered By: Chris Pierre on 99-93-7552QHL No additional P-5'-P [Catalytic activity/Vol]61 U/B96-23ToxyulbvyEast Ohio Regional Hospitalerum or plasma albumin/globulin mass ratioOrdered By: Chris Pierre on 96-71-4930Geyqwxt/Globulin [Mass ratio]2.0 {ratio}[facility] Hospitalerum or plasma alkaline phosphatase measurement (enzymatic activity/volume)Ordered By: Chris Pierre on 08-02-2022 ALP [Catalytic activity/Vol]61 U/M91-98OdteeuwfqEast Ohio Regional Hospitalerum or plasma anion gap determinationOrdered By: Chris Pierre on 55-83-4635Qmlqh gap [Moles/Vol]14.4 mmol/L6.0-15.0[facility] Hospitalerum or plasma aspartate aminotransferase measurement (enzymatic activity/volume)Ordered By: Chris Pierre on 38-89-7076COB [Catalytic activity/Vol]45 U/E13-29OmzmglbayEast Ohio Regional Hospitalerum or plasma calcium measurement (mass/volume)Ordered By: Chris Pierre on 55-95-0119Cavwiyk [Mass/Vol]9.6 mg/dL8.2-10.2FCorey Hospitalerum or plasma chloride measurement (moles/volume) Ordered By: Chris Pierre on 13-61-6262Yfuweuge [Moles/Vol]101 mmol/L95-114 [facility] Hospitalerum or plasma glucose measurement (mass/volume)Ordered By: Chris Pierre on 37-86-4604Mojpxdv [Mass/Vol]155 mg/dL 70-100[facility] HospitalComment on above:ADA recommended reference rangeRandom Glucose Reference Range is dependent on time and content of last meal. Glucose of more than 200 mg/dL in a nonstressed, ambulatory subject supports the diagnosisof Diabetes Mellitus.Serum or plasma high density lipoprotein (HDL) cholesterol measurementOrdered By: Chris Pierre on 71-04-9112Supcbxwiqsi in HDL [Mass/Vol]49 mg/qL70-42SdemwrxwxCincinnati Shriners HospitalComment on above:HDL CHOL ATP-III CLASSIFICATION Cardiovascular RiskHDL > or equal to 60 mg/dL LOWHDL < 40 mg/dL HIGHSerum or plasma potassium measurement (moles/volume)Ordered By: Chris Pierre on 50-64-5944Npcbnzytc [Moles/Vol]4.7 mmol/L3.5-5.1FCorey Hospitalerum or plasma sodium measurement (moles/volume)Ordered By: Chris Pierre on 15-92-7848Zebagt [Moles/Vol]137 mmol/U206-958SuajutirsEast [place] Regional Hospitalerum or plasma total bilirubin measurement (mass/volume)Ordered By: Chris Pierre on 33-35-1758Drjgcyihj [Mass/Vol]2.0 mg/dL0.3-1.2FKeenan Private HospitalComment on above: Samples from patients who have taken Naproxen have shown spurious elevation in Total Bilirubin levels. A metabolite of Naproxen, O-desmethylnaproxen, has been shown to interfere with the Jenoneidaik-Grof method for measuring Total Bilirubin.Serum or plasma total carbon dioxide measurement (moles/volume)Ordered By: Chris Pierre on 12-94-7538BO0 [Moles/Vol]26.3 mmol/L22.0-30.0[facility] [place] [facility] Hospitalerum or plasma total cholesterol/high density lipoprotein (HDL) cholesterol mass ratOrdered By: Chris Pierre on 08-02-2022 Cholesterol.total/Cholesterol in HDL [Mass ratio]3.5 {ratio}<5.0[facility] [place] [facility] Hospitalerum or plasma urea nitrogen measurement (mass/volume) Ordered By: Chris Pierre on 33-19-6118Klkx nitrogen [Mass/Vol]16 mg/dL9-23 [facility] HospitalTriglyceride [Mass/volume] in Serum or Plasma Ordered By: Chris Pierre on 10-22-2388Jmebsulwqbvg [Mass/Vol]157 mg/jW38-498 [facility]ers HospitalComment on above:TRIG ATP III CLASSIFICATIONTRIG less than 150 mg/dL NormalTRIG 150-199 mg/dL Borderline highTRIG 200-500 mg/dL High TRIG greater than 500 mg/dL Very highStandard traceable to the Center for Disease Conrtrol and Prevention (CDC) test method. WBC Auto (Bld) [#/Vol]Ordered By: Chris Pierre on 21-10-1290IUC (Bld) [#/Vol] 5.7 10*3/uL4.1-10.5FKeenan Private HospitalCNPNon 34-74-2133ZRHN Telephone (OPHTSG) JESSENIA PYLE ([id number]) 1945 M Date Time Provider Department 07/26/22 TAMANNA PORRAS OPHTSG During your visit today, we recorded the following information about you: Debbie Shipley [facility] 07/26/2022 10:19 AM Signed Faxed letter to Lee Knowles, OD [address] [place] [address] Via Allergies As of Date: 07/26/2022 Noted [...] 1 tablet by mouth once daily. 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 Orders 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 pectoris, Essential hypertension, Hyperlipidemia Renew: Isosorbide Mononitrate ER 30 MG Oral Tablet Extended Release 24 Hour; Take 1 tablet daily Overweight with body mass index (BMI) of 28 to 28.9 in adult Healthy Weight Tips; Status:Complete; Done: [id number] Patient Instructions Please bring all medicines, vitamins, [...] making process incorporating patients unique circumstances, the followingtreatment plan will be initiated: 1. Prescription drug [...] of moderate-intensity aerobic activity. Brisk walking (at least2.5 miles per hour), water aerobics, gardening, biking [...] Surgical History Problems History of Complete colonoscopy [id number] History of Foot surgery History of Knee surgery History of Lithotripsy History of Meniscus repair History of Renal lithotripsy History of Tonsillectomy Current Meds Medication NameInstruction amLODIPine Besylate 5 MG Oral TabletTAKE 1 TABLET DAILY. Aspirin 81 MG Oral Tablet Delayed ReleaseTAKE 1 TABLET DAILY. Bisoprolol-hydroCHLOROthiazide 10-6.25 MG Oral TabletTAKE 1 TABLET DAILY. Isosorbide Mononitrate ER 30 MG Oral Tablet Extended Release 24 HourTake 1 tablet daily Lisinopril 10 MG Oral TabletTAKE 1 TABLET DAILY. Multi Vitamin TABSTAKE 1 TABLET DAILY. Nitroglycerin 0.4 MG Sublingua (more content not included)...NormalUH Touchworks Albumin [Mass/volume] in Serum or PlasmaOrdered By: Chris Pierre on 01-31-2022 Albumin [Mass/Vol]3.9 g/dL3.2-5.5FKeenan Private HospitalBasophils Auto (Bld) [#/Vol]Ordered By: Chris Pierre on 29-57-2448Bnxrvhsxo (Bld) [#/Vol]0.0 10*3/uL0.0-0.2FKeenan Private HospitalBasophils/100 WBC Auto (Bld) Ordered By: Chris Pierre on 88-64-3728Iydfwxeil/100 WBC (Bld)0.6 %.[facility] HospitalBlood hemoglobin measurement (mass/volume)Ordered By: Chris Pierre on 10-14-7542Opfxdclabk (Bld) [Mass/Vol]17.8 g/dL13.0-17.0 [facility] HospitalBlphillips eye institute leukocytes automated count (number/volume)Ordered By: Chris Pierre on 37-20-1463EAE (Bld) [#/Vol]5.1 10*3/uL4.5-11.0[facility] HospitalCholesterol [Mass/volume] in Serum or PlasmaOrdered By: Eduardo Brock on 88-31-4770Flxpplnimnc [Mass/Vol]171 mg/kL572-230QpjxizatsCincinnati Shriners HospitalComment on above:Chol less than 200 mg/dl low risk Chol 201-239 mg/dl borderline risk Chol 240 mg/dl and greater high riskCholesterol in LDL Calc [Mass/Vol]Ordered By: Eduardo Brock on 43-06-3674Fmntfyncrxc in LDL [Mass/Vol]97 mg/dL0-100 [facility]ers HospitalComment on above:LDL ATP III CLASSIFICATION LDL less than 100 mg/dL Optimal LDL 100-129 mg/dL Near or above optimal LDL 130-159 mg/dL Borderline high LDL 160-189 mg/dL High LDL greater than 189 mg/dL Very highCholesterol in VLDL Calc [Mass/Vol]Ordered By: Eduardo Brock on 80-22-7833Psayhkakjmu in VLDL [Mass/Vol]26 mg/dLCincinnati Shriners HospitalCreatinine and Glomerular filtration rate.predicted panel (S/P/Bld)Ordered By: Eduardo Brock on 18-34-6555Skbdlzvxsg [Mass/Vol]1.00 mg/dL0.64-1.27[facility] HospitalEosinophils Auto (Bld) [#/Vol] Ordered By: Chris Pierre on 45-80-5881Qlppeomxken (Bld) [#/Vol]0.1 10*3/uL 0.0-0.45[facility]ers HospitalEosinophils/100 WBC Auto (Bld)Ordered By: Chris Pierre on 07-60-6177Jwupdsssxjg/100 WBC (Bld)1.6 %.[facility] HospitalErythrocyte distribution width Auto (RBC) [Ratio]Ordered By: Chris Pierre on 67-55-8007Cbirohcepxi distribution width (RBC) [Ratio]12.9 %12.0-14.8[facility] HospitalEstimated glomerular filtration rate (GFR) non- AmericanOrdered By: Eduardo Brock on 33-14-9841CKX/1.73 sq M.predicted among non-blacks MDRD (S/P/Bld) [Vol rate/Area]> 60 mL/MinCincinnati Shriners HospitalGlobulin Calc (S) [Mass/Vol]Ordered By: Chris Pierre on 67-18-0452Tlrerpjh (S) [Mass/Vol]2.6 g/dLCincinnati Shriners Hospital Glucose mean value [Mass/volume] in Blood Estimated from glycated hemoglobin Ordered By: Chris Pierre on 81-24-0313Avutvqd glucose Estimated from glycated hemoglobin (Bld) [Mass/Vol]108 mg/dLCincinnati Shriners HospitalHematocrit Auto (Bld) [Volume fraction]Ordered By: Chris Pierre on 44-78-8598Skzpxgxydo (Bld) [Volume fraction]51.4 %38.8-50.0[facility] Hemoglobin A1c percentageOrdered By: Chris Pierre on 19-53-2532FqJ0j (Bld) [Mass fraction]5.4 %4.3-5.6FKeenan Private HospitalComment on above: Increased risk for diabetes: 5.7 - 6.4 diabetes: >6.4 glycemic control for adults with diabetes: <7.0Laboratory - Chemistry and Chemistry - challengeon 19-68-4770Lonvripecke [Mass/Vol]171\S\166Prxqay289-811 MP-[facility] 600 DO Work Phone: Comment on above:Chol less than 200 mg/dl low risk Chol 201-239 mg/dl borderline risk Chol 240 mg/dl and greater high risk Cholesterol in LDL [Mass/Vol]97\S\08Wyaemf0-580SJ-BmqkpMurray County Medical Center 600 DO Work Phone: Comment on above:LDL ATP III CLASSIFICATION LDL less than 100 mg/dL Optimal LDL 100-129 mg/dL Near or above optimal LDL 130-159 mg/dL Borderline high LDL 160-189 mg/dL High LDL greater than 189 mg/dL Very high Laboratory - Hematology and Cell countsOrdered By: Chris Pierre on 01-31-2022 Nucleated RBC/100 WBC (Bld) [Ratio]0.2 %0-0.5FKeenan Private Hospital Lymphocytes Auto (Bld) [#/Vol]Ordered By: Chris Pierre on 01-31-2022 Lymphocytes (Bld) [#/Vol]1.0 10*3/uL1.00-4.8[facility] Lymphocytes/100 WBC Auto (Bld)Ordered By: Chris Pierre on 01-31-2022 Lymphocytes/100 WBC (Bld)19.4 %.[facility]ers HospitalMCH Auto (RBC) [Entitic mass]Ordered By: Chris Pierre on 01-60-6342DJT (RBC) [Entitic mass] 33.3 pg27.5-35.2FKeenan Private HospitalMCHC Auto (RBC) [Mass/Vol] Ordered By: Chris Pierre on 02-96-1295WDZA (RBC) [Mass/Vol]34.7 g/dL32.5-35.6 [facility] HospitalMCV Auto (RBC) [Entitic vol]Ordered By: Chris Pierre on 73-36-0933YQC (RBC) [Entitic vol]96.2 fL83.5-101C[facility]ers HospitalMonocytes Auto (Bld) [#/Vol]Ordered By: Crhis Pierre on 51-78-1391Ndzkqruev (Bld) [#/Vol]0.5 10*3/uL0.0-0.8[facility] HospitalMonocytes/100 WBC Auto (Bld)Ordered By: Chris Pierre on 01-31-2022 Monocytes/100 WBC (Bld)10.5 %.[facility]riners HospitalNeutrophils Auto (Bld) [#/Vol]Ordered By: Chris Pierre on 26-28-5091Pkpfmitsezo (Bld) [#/Vol] 3.5 10*3/uL1.8-7.7FKeenan Private HospitalNeutrophils/100 WBC Auto (Bld)Ordered By: Chris Pierre on 73-41-1057Divkwljghky/100 WBC (Bld)67.9 %. [facility]ers HospitalNo Panel InformationOrdered By: Jesusita Small on 81-47-8509Pdfszanp Specific Antigen Total1.070 ng/mL0.000-4.000[facility] HospitalNo Panel InformationOrdered By: Eduardo Brock on 30-57-3175Uwqlxrexk GFR ()> 60 mL/MinCincinnati Shriners HospitalComment on above:GFR estimated reference range: According to KDOQI guidelines, <60 ml/min/1.73m2 is sufficient todiagnose a patient with chronic kidney disease.Pharmacy Creatinine Clearance (ChemN/[facility] HospitalNo Panel Informationon .2\S\9.3Qsxzxj1.2-10.2MP-[facility] 600 DO Work Phone: [phone]\S\25.2Qqhdsy10.0-30.0MP-[facility] 600 DO Work Phone: [phone]\S\693Ijsqaz19-969HT-Zyfnp [place] [facility] 600 DO Work Phone: [phone]\S\4.0Zpmhgk1.5-5.1MP-[facility] 600 DO Work Phone: [phone]\S\689Trrckh288-412ZG-Gmrfa [facility] 600 DO Work Phone: > 60NormalMP-[facility] 600 DO Work Phone: [phone] on above:GFR estimated reference range: According to KDOQI guidelines, <60 ml/min/1.73m2 is sufficient todiagnose a patient with chronic kidney disease.1.00\S\1.52Wlsody1.64-1.27MP-[facility] 600 DO Work Phone: [phone]\S\75Gudtgb5-46NF-FdrmoMurray County Medical Center 600 DO Work Phone: [phone]\S\143above high guenkvnnv28-595UC-CcxwuMurray County Medical Center 600 DO Work Phone: Comment on above:Random Glucose Reference Range is dependent on time and content of last meal. Glucose of more than 200 mg/dL in a nonstressed, ambulatory subject supports the diagnosis of Diabetes Mellitus. ADA recommended reference range29\S\55Rcgypi33-45XY-Wpbhi [facility] 600 DO Work Phone: [phone]\S\83Kqazpn85-65RZ-PdbtgMurray County Medical Center 600 DO Work Phone: [phone]\S\3.6Normal<5.0MP-[facility]k 600 DO Work Phone: Comment on above:PERFORMED BY:[place] [address] [address] [place], [place] [phone] MEDICAL DIRECTORGWEN CRUZ M.D.26\S\26NormalMP-[facility] 600 DO Work Phone: [phone]\S\617Hlnvyq17-392GX-Dgqqx [facility] 600 DO Work Phone: Comment on above:TRIG ATP III CLASSIFICATION TRIG less than 150 mg/dL Normal TRIG 150-199 mg/dL Borderline high PCXA248-630 mg/dL High TRIG greater than 500 mg/dL Very high Standard traceable to the Center for Disease Conrtrol and Prevention (CDC) test method.48\S\96Gzixzm05-53PH-Vtwly [facility] 600 DO Work Phone: Comment on above:HDL CHOL ATP-III CLASSIFICATION Cardiovascular Risk HDL > or equal to 60 mg/dL LOW HDL < 40 mg/dL HIGHPlatelet mean volume Auto (Bld) [Entitic vol]Ordered By: Chris Pierre on 01-31-2022 Platelet mean volume (Bld) [Entitic vol]10.9 fL6.6-10.1FKeenan Private HospitalPlatelets Auto (Bld) [#/Vol]Ordered By: Chris Pierre on 56-84-8664Eqxrftkxi (Bld) [#/Vol]137 10*3/sS492-340TmhgwuouuCincinnati Shriners HospitalProtein [Mass/volume] in Serum or PlasmaOrdered By: Chris Pierre on 80-13-8609Cugnijc [Mass/Vol]6.5 g/dL6.1-7.9[facility]riners HospitalRBC Auto (Bld) [#/Vol]Ordered By: Chris Pierre on 96-12-3000UTH (Bld) [#/Vol]5.35 10*6/uL3.90-5.60[facility] [place] [facility] Hospitalerum or plasma alanine aminotransferase measurement without P-5'-P (enzymatic activiOrdered By: Eduardo Brock on 57-96-2327RMB No additional P-5'-P [Catalytic activity/Vol]36 U/L [facility] [place] [facility] Hospitalerum or plasma albumin/globulin mass ratioOrdered By: Chris Pierre on 66-03-0374Ohgyxgj/Globulin [Mass ratio]1.5 {ratio}[facility] [place] [facility] Hospitalerum or plasma alkaline phosphatase measurement (enzymatic activity/volume)Ordered By: Chris Pierre on 01-31-2022 ALP [Catalytic activity/Vol]59 U/J81-10EejlyuxomEast Ohio Regional Hospitalerum or plasma aspartate aminotransferase measurement (enzymatic activity/volume)Ordered By: Eduardo Brock on 95-98-7243EVM [Catalytic activity/Vol]29 U/O84-64DckvwmblfEast [place] Regional Hospitalerum or plasma calcium measurement (mass/volume)Ordered By: Eduardo Brock on 52-85-1083Mujnqef [Mass/Vol]9.2 mg/dL8.2-10.2FCorey Hospitalerum or plasma chloride measurement (moles/volume) Ordered By: Eduardo Brock on 44-42-5947Ycvdwkff [Moles/Vol]103 mmol/L95-114 [facility] [place] [facility] Hospitalerum or plasma glucose measurement (mass/volume)Ordered By: Eduardo Brock on 62-82-4211Ujqzqsw [Mass/Vol]143 mg/dL 70-100[facility]riners HospitalComment on above:ADA recommended reference range Random Glucose Reference Range is dependent on time and content of last meal. Glucose of more than 200 mg/dL in a nonstressed, ambulatory subject supports the diagnosis of Diabetes Mellitus.Serum or plasma high density lipoprotein (HDL) cholesterol measurementOrdered By: Eduardo Brock on 62-38-2207Kffdzlxywkk in HDL [Mass/Vol]48 mg/gY54-08TtsgtbkutCincinnati Shriners HospitalComment on above:HDL CHOL ATP-III CLASSIFICATION Cardiovascular Risk HDL > or equal to 60 mg/dL LOW HDL < 40 mg/dL HIGHSerum or plasma potassium measurement (moles/volume)Ordered By: Eduardo Brock on 80-54-2279Zzycbxxoz [Moles/Vol]4.0 mmol/L3.5-5.1FCorey Hospitalerum or plasma sodium measurement (moles/volume)Ordered By: Eduardo Brock on 14-54-8761Gyruyr [Moles/Vol]139 mmol/A456-100KcsnerndlEast Ohio Regional Hospitalerum or plasma total bilirubin measurement (mass/volume) Ordered By: Chris Pierre on 13-54-4825Iycdlwprj [Mass/Vol]1.5 mg/dL0.3-1.2 [facility]ers HospitalComment on above:Samples from patients who have taken Naproxen have shown spurious elevation in Total Bilirubin levels. A metabolite of Naproxen, O-desmethylnaproxen, has been shown to interfere with the Mariam-Mindy method for measuring Total Bilirubin.Serum or plasma total carbon dioxide measurement (moles/volume)Ordered By: Eduardo Brock on 76-38-6388GF1 [Moles/Vol]25.7 mmol/L22.0-30.0[facility] Serum or plasma total cholesterol/high density lipoprotein (HDL) cholesterol mass ratOrdered By: Eduardo Brock on 25-17-2851Wutxtutcxtb.total/Cholesterol in HDL [Mass ratio]3.6 {ratio}<5.0[facility] [place] [facility] Hospitalerum or plasma urea nitrogen measurement (mass/volume)Ordered By: Eduardo Brock on 01-31-2022 Urea nitrogen [Mass/Vol]17 mg/dL9-23[facility]riners HospitalTSH DL <= 0.005 mIU/L QnOrdered By: Chris Pierre on 62-61-0512JGT Qn1.04 m[IU]/L 0.45-5.33[facility]riners HospitalTriglyceride [Mass/volume] in Serum or PlasmaOrdered By: Eduardo Brock on 58-64-1208Cuhrtxdtbahq [Mass/Vol]130 mg/dL 35-149[facility]riners HospitalComment on above:TRIG ATP III CLASSIFICATION TRIG less than 150 mg/dL Normal TRIG 150-199 mg/dL Borderline high TRIG 200-500 mg/dL High TRIG greater than 500 mg/dL Very high Standard traceable to the Center for Disease Conrtrol and Prevention (CDC) test method.Urine microalbumin measurement with detection limit of 20 mg/L or less (mass/volume)Ordered By: Chris Pierre on 72-96-5491Fuqiygp DL <= 20 mg/L (U) [Mass/Vol]3.5 mg/dL0.0-1.8[facility] HospitalNo Panel Information on 76-04-5915ClttczLXMaple Grove Hospital Work Phone: Complete Blood Count with Auto Diffon 03-09-2022 Basophils (Bld) [#/Vol]0.05 10*3/uLNormal0.00-0.20NoSelect Medical Specialty [facility], Inc SpecialistComment on above:Performed By: #### CBCAD, CMP #### [facility] [address], [place] [id number]/100 WBC (Bld)0.7 %NormalPike Community Hospital SpecialistComment on above:Performed By: #### CBCAD, CMP #### [facility] [address], [place] [id number] (Bld) [#/Vol]0.12 10*3/uLNormal0.02-0.50NoSelect Medical Specialty [facility], Inc SpecialistComment on above:Performed By: #### CBCAD, CMP #### [facility] [address], [place] [id number]/100 WBC (Bld)1.6 %NormalNoSelect Medical Specialty [facility], Inc SpecialistComment on above:Performed By: #### CBCAD, CMP #### [facility] [address], [place] [id number] distribution width (RBC) [Ratio]13.4 %Normal 11.0-15.0[facility] SpecialistComment on above:Performed By: #### CBCAD, CMP #### [facility] [address], [place] [id number] (Bld) [Volume fraction]52.5 %High38.5-50.0NoSelect Medical Specialty [facility], [facility] SpecialistComment on above:Performed By: #### CBCAD, CMP #### [facility] [address], [place] [id number] (Bld) [Mass/Vol]17.9 g/wXLsvy88.0-17.1NortherTriHealth [facility] SpecialistComment on above:Performed By: #### CBCAD, CMP #### [facility] [address], [place] [id number] (Bld) [#/Vol]1.5 10*3/uLNormal0.9-3.9NortParma Community General Hospital Medical SpecialistComment on above:Performed By: #### CBCAD, CMP #### [facility] [address], [place] [id number]/100 WBC (Bld)20.6 %NormalNortParma Community General Hospital Medical SpecialistComment on above:Performed By: #### CBCAD, CMP #### [facility] [address], [place] [id number] (RBC) [Entitic mass]32.7 ttIqpgcy22.0-33.0NortParma Community General Hospital Medical SpecialistComment on above:Performed By: #### CBCAD, CMP #### [facility] [address], [place] [id number] (RBC) [Mass/Vol]34.1 g/sGPmmtov87.0-36.0NortParma Community General Hospital Medical SpecialistComment on above:Performed By: #### CBCAD, CMP #### [facility] [address], [place] [id number] (RBC) [Entitic vol]96 pEKdnvxs68-721Jtzejkss [facility] SpecialistComment on above:Performed By: #### CBCAD, CMP #### [facility] [address], [place] [id number] (Bld) [#/Vol]0.8 10*3/uLNormal0.2-0.9NortParma Community General Hospital Medical SpecialistComment on above:Performed By: #### CBCAD, CMP #### [facility] [address], [place] [id number]/100 WBC (Bld)10.8 %NormalNortParma Community General Hospital Medical SpecialistComment on above:Performed By: #### CBCAD, CMP #### [facility] [address], [place] [id number] (Bld) [#/Vol]4.9 10*3/uLNormal1.5-7.8NortParma Community General Hospital Medical SpecialistComment on above:Performed By: #### CBCAD, CMP #### [facility] [address], [place] [id number]/100 WBC (Bld)65.8 %NormalNoSelect Medical Special[facility], Inc SpecialistComment on above:Performed By: #### CBCAD, CMP #### [facility] [address], [place] [id number] mean volume (Bld) [Entitic vol]12.60 fLHigh 7.50-12.50NoSelect Medical Specialty [facility] SpecialistComment on above:Performed By: #### CBCAD, CMP #### [facility] [address], [place] [id number] (Bld) [#/Vol]158 10*3/qHBqjsnq871-201Docwubuo [facility] SpecialistComment on above:Performed By: #### CBCAD, CMP #### [facility] [address], [place] [id number] (Bld) [#/Vol]5.47 10*6/uLNormal4.20-5.80NoSelect Medical Specialty [facility] SpecialistComment on above:Performed By: #### CBCAD, CMP #### [facility] [address], [place] [id number]-RC86.4 bJEhasbt28.0-50.0NoSelect Medical Specialty [facility] Specialist Comment on above:Performed By: #### CBCAD, CMP #### [facility] [address], [place] [id number] (Bld) [#/Vol]7.4 10*3/uLNormal3.8-11.0NoSelect Medical Specialty [facility] SpecialistComment on above:Performed By: #### CBCAD, CMP #### [facility] [address], [place] [id number] Metabolic Panelon 02-56-0489Wnsclis [Mass/Vol] 4.6 g/dLNormal3.6-5.1NorthF[facility]on [facility] SpecialistComment on above:Performed By: #### CBCAD, CMP #### [facility] [address], [place] [id number]/Globulin [Mass ratio]2.2 {ratio}Normal1.0-2.5NoSelect Medical Specialty [facility] SpecialistComment on above:Performed By: #### CAITLYN, CMP #### [facility] [address], [place] [id number] [Catalytic activity/Vol]79 U/HOjvhqu12-416Qxpupgik [facility] SpecialistComment on above:Performed By: #### CBCFIOAN, CMP #### [facility] [address], [place] [id number] [Catalytic activity/Vol]50 U/LHigh9-46NortBlanchard Valley Health System [facility] SpecialistComment on above:Result Comment: 07/12/2021 Female reference range changed.Performed By: #### CAITLYN, CMP #### [facility] [address], [place] [id number] gap [Moles/Vol]20 mmol/GEzcphl46-50Znjzhbzq [facility] SpecialistComment on above:Result Comment: Effective 08/17/2019 reference range changed.Performed By: #### CAITLYN, CMP #### [facility] [address], [place] [id number] [Catalytic activity/Vol]34 U/KCnaboy12-24Pqgolclz [place] Medical SpecialistComment on above:Performed By: #### CAITLYN, CMP #### [facility] [address], [place] [id number] [Mass/Vol]1.22 mg/dLHigh0.30-1.20NoSelect Medical Specialty [facility], Inc SpecialistComment on above:Performed By: #### CBCFIONA, CMP #### [facility] [address], [place] [id number]/CREA21 RatioNormal6-22NoSelect Medical Specialty [facility], [facility] Specialist Comment on above:Performed By: #### CBCFIONA, CMP #### [facility] [address], [place] [id number] [Mass/Vol]9.6 mg/dLNormal8.6-10.2[facility] [place] SpecialistComment on above:Performed By: #### CBCFIONA, CMP #### [facility] [address], [place] [id number] [Moles/Vol]103 mmol/VAcjztr60-465Rzdnficz [place] Medical SpecialistComment on above:Performed By: #### CBCFIONA, CMP #### [facility] [address], [place] [id number] [Moles/Vol]24 mmol/PWvrorz49-84Ijuaqznd [place] [facility] SpecialistComment on above:Performed By: #### CBCFIONA, CMP #### [facility] [address], [place] [id number] [Mass/Vol]0.9 mg/dLNormal0.7-1.4[facility] [place] SpecialistComment on above:Performed By: #### CBCFIONA, CMP #### [facility] [address], [place] [id number] mL/min/1.46i0Liirme>60[facility]ortBlanch[facility] SpecialistComment on above:Performed By: #### CBCFIONA, CMP #### [facility] [address], [place] [id number] mL/min/1.73r4Pzqelx>60[facility]ortBlanch[facility] SpecialistComment on above:Performed By: #### CBCFIONA, CMP #### [facility] [address], [place] [id number] (S) [Mass/Vol]2.1 g/dLNormal1.9-3.7NortBlanch[facility] SpecialistComment on above:Performed By: #### CBCFIONA, CMP #### [facility] [address], [place] [id number] [Mass/Vol]109 mg/jCTnnf53-19Qnyefpew [place] Medical SpecialistComment on above:Result Comment: For FASTING Glucose --- ADA reference ranges: Normal 65-99 mg/dl Prediabetes 100-125 Diabetes >/= 126Performed By: #### CBCFIONA, CMP #### [facility] [address], [place] [id number] [Moles/Vol]5.0 mmol/LNormal3.5-5.5[facility] [place] SpecialistComment on above:Result Comment: Specimen is hemolyzed. Results may be affected.Performed By: #### CBCAD, CMP #### [facility] [address], [place] [id number] [Mass/Vol]6.7 g/dLNormal6.1-8.1[facility] [place] SpecialistComment on above:Performed By: #### CBCAD, CMP #### [facility] [address], [place] [id number] [Moles/Vol]142 mmol/VSepkut431-026Ovsmjqii [facility] [place] SpecialistComment on above:Performed By: #### CBCAD, CMP #### [facility] [address], [place] [id number] nitrogen [Mass/Vol]19 mg/dLNormal7-25[facility]ern [facility] [place] SpecialistComment on above:Performed By: #### CBCAD, CMP #### [facility] [address], [place] [id number] Screening.on 10-55-0735Wndo risk assessmenta) [facility] the [facility] [employer] 250 DO Work Phone: Tobacco use status CPHSb) [facility] 250 DO Work Phone: XR KUB 1 VIEWon [id number] KUB 1 VIEWEXAMINATION: XR KUB 1 VIEW HISTORY: Urolithiasis COMPARISON: [...] Electronically authenticated by: SUE CHARLTON Date: 2021-03-16 16:20[facility] AUTO DIFFon [id number] #0.0 103/ulNormal0.0-0.1The [facility] HospitalComment on above:Performed By: #### CBC #### [facility] [address] [id number] Phyllis KarenBasophils/100 WBC (Bld)0.7 %Normal0.2-2.0The [facility] Comment on above:Performed By: #### CBC #### [facility] [address] [address] Phyllis KarenEO #0.1 103/ulNormal0.0-0.7The [facility] HospitalComment on above: Performed By: #### CBC #### [facility] [address] [place] [address] Phyllis KarenEosinophils/100 WBC (Bld)1.7 %Normal0.9-7.0The [facility] Comment on above:Performed By: #### CBC #### [facility] [address] [address] Phyllis KarenErythrocyte distribution width (RBC) [Ratio]13.1 %Uopwjt24.0-15.0The [facility] HospitalComment on above:Performed By: #### CBC #### [facility] [address] [place] [address] Phyllis KarenHematocrit (Bld) [Volume fraction]49.7 %Clbksl07.0-54.0The [facility] HospitalComment on above:Performed By: #### CBC #### [facility] [address] [place] [address] Phyllis KarenHemoglobin (Bld) [Mass/Vol]17.7 g/vRBqjygp84.0-18.0The [facility] HospitalComment on above:Performed By: #### CBC #### [facility] [address] [place] [address] Phyllis KarenIG #0.02 10e3/ulNormal0.00-0.03The [facility] HospitalComment on above:Performed By: #### CBC #### [facility] [address] [address] Phyllis KarenIG %0.3 %Normal0.0-0.5The [facility] HospitalComment on above: Performed By: #### CBC #### [facility] [address] [place] [address] Phyllis LewisLYMPH #1.1 103/ulCritically low1.2-3.8The [facility] HospitalComment on above:Performed By: #### CBC #### [facility] [address] [place] [address] Phyllis SchaeferenLymphocytes/100 WBC (Bld)19.0 %Critically low20.5-60.0The [facility] HospitalComment on above:Performed By: #### CBC #### [facility] [address] [place] [address] Phyllis KarenMANUAL DIFF REQNONormalThe [facility] HospitalComment on above: Performed By: #### CBC #### [facility] [address] [place] [address] Phyllis KarenMCH (RBC) [Entitic mass]34.0 jjWivxge13.9-34.0The [facility] Comment on above:Performed By: #### CBC #### [facility] [address] [place] [address] Phyllis KarenMCHC (RBC) [Mass/Vol]35.6 g/dLCritically high29.9-35.2The [facility] HospitalComment on above:Performed By: #### CBC #### [facility] [address] [place] [address] Phyllis KarenMCV (RBC) [Entitic vol]95.6 fLCritically high80.0-94.0The [facility] HospitalComment on above:Performed By: #### CBC #### [facility] [address] [place] [address] Phyllis SchaeferenMONO #0.6 103/ulNormal0.3-0.8The [facility] HospitalComment on above: Performed By: #### CBC #### [facility] [address] [place] [address] Phyllis KarenMonocytes/100 WBC (Bld)9.8 %Normal1.7-12.0The [facility] Comment on above:Performed By: #### CBC #### [facility] [address] [place] [address] Phyllis SchaeferenNEUT #4.0 103/ulNormal1.4-6.5The [facility] HospitalComment on above: Performed By: #### CBC #### [facility] [address] [place] [address] Phyllis KarenNeutrophils/100 WBC (Bld)68.5 %Tcmmhu86.0-75.0[facility] Comment on above:Performed By: #### CBC #### [facility] [address] [place] [address] Phyllis KarenPlatelet mean volume (Bld) [Entitic vol]11.9 fLNormal9.5-13.5The [facility] HospitalComment on above:Performed By: #### CBC #### [facility] [address] [place] [address] Phyllis JyxgnUUS627 103/ulCritically unh617-532Owv [facility] HospitalComment on above:Performed By: #### CBC #### [facility] [address] [place] [address] Phyllis KarenRBC5.20 106/ulNormal4.70-6.10The [facility] HospitalComment on above: Performed By: #### CBC #### [facility] [address] [place] [address] Phyllis KarenWBC5.8 103/ulNormal4.0-11.0The [facility] HospitalComment on above: Performed By: #### CBC #### [facility] [address] [place] [address] Phyllis KarenPROF CHEM 8 (BAS METB)on 20-22-8623Irrbs gap [Moles/Vol]6.7 mmol/L NormalThe [facility] HospitalComment on above:Performed By: #### BMP #### [facility] [address] [address] Phyllis KarenCalcium [Mass/Vol]9.0 mg/dLNormal8.4-10.2[facility] Comment on above:Performed By: #### BMP #### [facility] [address] [place] [address] Phyllis KarenChloride [Moles/Vol]103 mmol/ZRfhaeg84-403Znp [facility] Comment on above:Performed By: #### BMP #### [facility] [address] [place] [address] Phyllis KarenCO2 [Moles/Vol]32.0 mmol/LCritically high22.0-30.0The [facility] HospitalComment on above:Performed By: #### BMP #### [facility] [address] [place] [address] Phyllis KarenCreatinine [Mass/Vol]0.93 mg/dLNormal0.66-1.25The [facility] Comment on above:Performed By: #### BMP #### [facility] [address] [place] [address] Phyllis KarenEGFR-AF FIJIAN>60Normal>=60[facility] HospitalComment on above: Performed By: #### BMP #### [facility] [address] [place] [address] Phyllis KarenEGFR-NON AF FIJIAN>60Normal>=60The [facility] HospitalComment on above:Performed By: #### BMP #### [facility] [address] [place] [address] Phyllis KarenGlucose [Mass/Vol]119 mg/dLCritically hpar00-332Svi [facility] HospitalComment on above:Performed By: #### BMP #### [facility] [address] [place] [address] Phyllis KarenPotassium [Moles/Vol]4.7 mmol/LNormal3.4-5.0[facility] Comment on above:Performed By: #### BMP #### [facility] [address] [place] [address] Phyllis KarenSodium [Moles/Vol]137 mmol/ELuqnfn432-411Wtt [facility] Comment on above:Performed By: #### BMP #### [facility] [address] [place] [address] Phyllis KarenUrea nitrogen [Mass/Vol]19.0 mg/dLNormal9.0-20.0The [facility] HospitalComment on above:Performed By: #### BMP #### [facility] [address] [place] [address] Phyllis KarenUrea nitrogen/Creatinine [Mass ratio]20.4 mg/mgNoalThSelect Medical Specialty Hospital - YoungstownComment on above:Performed By: #### BMP #### [facility] [address] [place] [address] Phyllis KarenPROTIMEon 89-70-3476JBL Coag (PPP) [Relative time]1.06 {INR}Normal The [facility] HospitalComment on above:Performed By: #### PT, PTT #### [facility] [address] [place] [address] Phyllis KarenINR GUIDELINESSEE BELOWWright-Patterson Medical CenterComment on above: Result Comment: DESIRED INR: 2.0 - 3.0 CONDITIONS NOT LISTED BELOW 2.5 - 3.5 FOR PROSTHETIC HEART VALVE REPLACEMENT 2.5 - 3.5 RECURRENT THROMBOSISPerformed By: #### PT, PTT #### [facility] [address] [place] [address] Phyllis KarenPT Coag (PPP) [Time]11.4 sNormal9.0-11.6The [facility] HospitalComment on above:Performed By: #### PT, PTT #### [facility] [address] [place] [address] Phyllis KarenPTTon 64-16-1782oYOH Coag (Bld) [Time]29.5 nBfxzjm24.3-36.2The [facility] HospitalComment on above:Performed By: #### PT, PTT #### [facility] [address] [place], [place] [id number] Phyllis Turnero Panel InformationBlanchard Valley Health System [facility] Vital Signs Date TimeVital SignValuePerforming NcosxslgiYqqibwzl84-04-0832 15:43-0500Body jzobhc150 cmMicmorenita Zarate FLANGER Work Phone: [address] [place] [address]Yhccreptmv12-46-1288 15:43-0500Body mass index (BMI) [Ratio]27.22 kg/i4ZuzgnwwSpencer Zarate FLANGER Work Phone: [place] [address]Smloiqagrn93-92-9234 15:43-0500Body .16 kgSpencer Zarate FLANGER Work Phone: [address] [address]Wcgafkkjsy06-40-4602 15:43-0500Diastolic blood yatrptfc80 mm[Hg]Spencer Zarate FL[employer]ER Work Phone: [address] [address]Djsoqpfzxi47-45-5439 15:43-0500Heart rate81 /min Spencer Zarate [employer] Work Phone: [address] [address]Mhksjxnmwt54-50-1564 15:43-2876ClM3% (BldA) [Mass fraction]97 %Spencer Zarate [employer]ER Work Phone: [address] [address]Egdokiylua29-88-4480 15:43-0500Systolic blood olyjrrbc811 mm[Hg]Spencer Zarate FLANGER Work Phone: noBarnes-Jewish HospitalCckujetnma58-09-2102 14:53-0400Heart rate82 /min Maryglenny Edgeion FLANGER Work Phone: [place] [address]Yciqppeozd06-36-4650 14:53-0400Respiratory rate16 /minJessica Didion FLANGER Work Phone: [place] [address]Lhrhvrzusq26-97-8524 14:53-5250UeB2% (BldA) [Mass fraction]97 %Mary Didion FLANGER Work Phone: noBarnes-Jewish HospitalRstefrljiz50-52-4599 15:00-0400Body temperature 99.3 [degF]Mary Didion FL[employer]ER Work Phone: [place] [address]Qctiocvetz37-64-5424 15:00-0400Diastolic blood mm[Hg]Mary Didion FLANGER Work Phone: [place] [address]Zedicqoqfs99-36-3456 15:00-0400Heart rate80 /min Mary Didion FLANGER Work Phone: [facility] HospitalBflipjfrgo85-04-5442 15:00-0400Respiratory rate16 /minMary Edgeion FLANGER Work Phone: [facility] HospitalBupajmzgap56-04-2443 15:00-1484ByF7% (BldA) [Mass fraction]97 %Mary Hedrick FLANGER Work Phone: [facility] HospitalRxtmffwiza67-88-0767 15:00-0400Systolic blood fbykrztl060 mm[Hg]Mary Hedrick FLANGER Work Phone: [phone] HospitalQbvtveltex18-65-3608 10:44-0400Body fpkaxo067.96 cmDonavanmyke Pierre DO Work Phone: 1(828)[address]08-25-2025 10:44-0400 Body mass index (BMI) [Ratio]26.8 kg/a2NdcdihgChris Pierre DO Work Phone: 1(327)[address]08-25-2025 10:44-0400 Body .8 kgChris Ignacio DO Work Phone: 1(682)1-[address] [place], [place] 3837008-25-2025 10:44-0400 Diastolic blood qevfnfmr09 mm[Hg]Chris Pierre DO Work Phone: 1(473)[address]08-25-2025 10:44-0400 Heart rate84 /minChris Pierre DO Work Phone: 8(096)0-[address] [place], [place] 3837008-25-2025 10:44-0400 Respiratory rate18 /minChris Pierre DO Work Phone: 7(343)943-[address] [place], [place] 3837008-25-2025 10:44-0400 SaO2% (BldA) [Mass fraction]97 %Chris Pierre DO Work Phone: [facility]08-25-2025 10:44-0400 Systolic blood mm[Hg]Chris Pierre DO Work Phone: [address] [place], [place] [address]57[address]08-22-2025 10:15-0400 Diastolic blood llartmgs49 mm[Hg]Mary Hedrick FLANGER Work Phone: [facility] HospitalHpdjomwntp49-73-3923 10:15-0400Heart rate80 /min Mary Hedrick FLANGER Work Phone: [facility] HospitalYntbphjmxa59-55-9199 10:15-0400Respiratory rate16 /minMary Hedrick FLANGER Work Phone: [facility] HospitalSqkfceuxft35-06-4895 10:15-1633KgQ4% (BldA) [Mass fraction]98 %Mary Hedrick FLANGER Work Phone: [facility] HospitalBvkznrngdx11-77-3940 10:15-0400Systolic blood brwrygrp445 mm[Hg]Mary Hedrick FLANGER Work Phone: [facility] HospitalLlcwegyhur61-35-1053 10:34-0400Body cm Ti Itzkowitz DO Work Phone: [facility] HospitalUoykmadinx56-22-2714 10:34-0400Body mass index (BMI) [Ratio]27.22 kg/a6Njqljpl Itzkowitz DO Work Phone: [facility] HospitalOdhcynmrqc91-17-7881 10:34-0400Body rycvfl74.16 kgFredric Itzkowitz DO Work Phone: [facility] HospitalMctjyfjtlt48-63-9661 10:34-0400Diastolic blood jxovutwj84 mm[Hg]Ti Itzkowitz DO Work Phone: [facility] HospitalVssetomzme97-95-5484 10:34-0400Systolic blood liaymzzb466 mm[Hg]Ti Itzkowitz DO Work Phone: [facility] HospitalKpmtlrdafr60-38-5889 10:10-0400Body mass index (BMI) [Ratio]26.68 kg/v3Dmbponh Ignacio DO Work Phone: [facility] HospitalWuvlzkgdzt87-82-0131 10:10-0400Body .16 kgJetiffanie Pierre DO Work Phone: [facility] HospitalLuklwdynbo07-80-9276 10:10-0400Diastolic blood mm[Hg]Chris Pierre DO Work Phone: [facility] HospitalNmdgvozrhl21-39-2478 10:10-0400Heart rate81 /min Chris Pierre DO Work Phone: [facility] HospitalNzcbhaccyr40-17-2968 10:10-2589UyL3% (BldA) [Mass fraction]95 %Chris Pierre DO Work Phone: [facility] HospitalGztwkaxokn73-63-9891 10:10-0400Systolic blood nwltxrhi498 mm[Hg]Chris Pierre DO Work Phone: [facility] HospitalIznsrodacj02-25-4178 10:16-0400Diastolic blood iwfqkinl18 mm[Hg][facility]04-08-2025 10:16-0400Heart rate94 /[facility]04-08-2025 10:16-0400Respiratory rate18 /[facility]04-08-2025 10:16-9721ZmD4% (BldA) [Mass fraction]98 %[facility]04-08-2025 10:16-0400 Systolic blood oauubcdw263 mm[Hg][facility]04-08-2025 10:14-0400Body ebizlf191.96 cmC[facility]riners Hospital04-08-2025 10:14-0400Body mass index (BMI) [Ratio]27.2 kg/r1YwpejbxdwCincinnati Shriners Hospital04-08-2025 10:14-0400Body .16 kgC[facility]riners Hospital 11-12-2024 08:38-0400Body mass index (BMI) [Ratio]26.93 kg/k4NbrdnpvChris Pierre DO Work Phone: [facility] HospitalGyvsuabodp06-38-8183 08:38-0400Body ihzrzn32.07 kgChris Pierre DO Work Phone: [facility] HospitalGvtmscnwqi24-89-5881 08:38-0400Diastolic blood vxfmered17 mm[Hg]Chris Ignacio DO Work Phone: 1([phone] HospitalEbgvenabsh37-16-5736 08:38-0400Heart rate87 /min Chris Ignacio DO Work Phone: 3(077)192-21[facility] HospitalVigptevlwy84-42-5533 08:38-2721CyP6% (BldA) [Mass fraction]98 %Chris Ignacio DO Work Phone: [facility] HospitalCglsvflycr51-81-4393 08:38-0400Systolic blood gfiyymmd168 mm[Hg]Chris Ignacio DO Work Phone: 1(940)[address] [place], [place] [address]0103-20-2025 12:56-0400Diastolic blood qensarfy17 mm[Hg]Chris Pierre DO Work Phone: 0(351)[address]03-20-2025 12:56-0400 Heart rate84 /minEliotiffanie Pierre DO Work Phone: 6(909)[address]03-20-2025 12:56-0400 Systolic blood wmufqjxc505 mm[Hg]Chris Pierre DO Work Phone: 9(208)[address] [place], [place] 4951203-20-2025 12:54-0400 Body oopfjn624.96 cmJeamarilismyke Pierre DO Work Phone: 9(800)[address] [place], [place] 4951203-20-2025 12:54-0400 Body mass index (BMI) [Ratio]28 kg/x7Cnaaubl Ignacio DO Work Phone: 7(114)8-[address] [place], [place] 3837003-20-2025 12:54-0400 Body ozyfhk81.88 kgElioamarilismyke Pierre DO Work Phone: 5(613)[address]03-20-2025 12:54-0400 Respiratory rate18 /minChris Pierre DO Work Phone: 4(695)2-[address] [place], [place] 3837003-20-2025 12:54-0400 SaO2% (BldA) [Mass fraction]97 %Chris Pierre DO Work Phone: 0(880)5-[address] [place], [place] 3837002-12-2025 10:03-0500 Body bcavxd043.96 cmChris Pierre DO Work Phone: [facility]02-12-2025 10:03-0500 Body mass index (BMI) [Ratio]27.6 kg/u2VatsnxlChris Pierre DO Work Phone: [facility]02-12-2025 10:03-0500 Body fuznix72.52 kgJetiffanie Pierre DO Work Phone: [facility]02-12-2025 10:03-0500 Diastolic blood icefdidy68 mm[Hg]Chris Pierre DO Work Phone: 2(677)410-[address] [place], [place] 3837002-12-2025 10:03-0500 Heart rate86 /minChris Pierre DO Work Phone: 1(373)576-[address] [place], [place] 3837002-12-2025 10:03-0500 Respiratory rate18 /minChris Pierre DO Work Phone: 1(905)578-[address] [place], [place] 3837002-12-2025 10:03-0500 SaO2% (BldA) [Mass fraction]98 %Chris Pierre DO Work Phone: [facility]02-12-2025 10:03-0500 Systolic blood wsnmozst771 mm[Hg]Chris Pierre DO Work Phone: [facility]02-06-2025 14:08-0500 Body mass index (BMI) [Ratio]26.42 kg/c4QhqheosSpencer Zarate FLANGER Work Phone: noms Vffrmxqhbc01-69-1732 14:08-0500Body inxabl02.25 kgSpencer Zarate FLANGER Work Phone: [facility] Hsfqrvvkff22-83-0208 14:08-0500Diastolic blood wibimxxz00 mm[Hg]Spencer Zarate FLANGER Work Phone: [facility]oms Ozxqcfevuw54-76-6810 14:08-0500Heart rate80 /min Spencer Zarate FLANGER Work Phone: noBarnes-Jewish HospitalRrfubwyete38-37-2899 14:08-0717YqS5% (BldA) [Mass fraction]98 %Spencer Zarate FLANGER Work Phone: noBarnes-Jewish HospitalDeppbupxjg66-42-4241 14:08-0500Systolic blood padlnigq865 mm[Hg]Spencer Zarate FLANGER Work Phone: noBarnes-Jewish HospitalFevetusscv67-63-3813 16:20-0500Diastolic blood uzxcgwep51 mm[Hg]Chris Pierre DO Work Phone: [facility]01-21-2025 16:20-0500 Heart rate77 /minChris Pierre DO Work Phone: 9(975)793-[address] [place], [place] 3837001-21-2025 16:20-0500 Respiratory rate16 /minChris Pierre DO Work Phone: 1(720)068-[address] [place], [place] 3837001-21-2025 16:20-0500 SaO2% (BldA) [Mass fraction]95 %Chris Pierre DO Work Phone: [facility]01-21-2025 16:20-0500 Systolic blood dcilkins523 mm[Hg]Chris Pierre DO Work Phone: [facility]01-21-2025 10:11-0500 Body yfpzmx642.96 cmJetiffanie Mccauleyman DO Work Phone: [facility]01-21-2025 10:11-0500 Body dwshtmmxgle75 [degF]Chris Pierre DO Work Phone: [facility]01-21-2025 10:11-0500 Body bxwaxk35 kgJetiffanie Ignacio DO Work Phone: [facility]01-20-2025 09:47-0500 Blood Pressure AlicePagemma SMALL [facility]01-20-2025 09:47-0500Body hohmibgaucg83.6 [degF]Jesusita SMALL [facility]01-20-2025 09:47-0500Diastolic blood dqhigguo35 mm[Hg]Jesusita SMALL [facility]01-20-2025 09:47-0500Heart rate77 /minPatrick STACI [facility]01-20-2025 09:47-0500Respiratory rate18 /minPatrick STACI [facility]01-20-2025 09:47-0500Systolic blood zkhpumka672 mm[Hg]Jesusita SMALL [facility]01-14-2025 10:58-0500Body mass index (BMI) [Ratio]26.42 kg/y7OmnmmidSpencer Zarate FLANGER Work Phone: NOBarnes-Jewish HospitalSzukzhtkfh79-94-4755 10:58-0500Body fecdrl87.25 kgSpencer Zarate FLANGER Work Phone: NOBarnes-Jewish HospitalEaxeboamuy83-24-1436 10:58-0500Diastolic blood iwceyyht82 mm[Hg]Spencer Zarate FLANGER Work Phone: NOBarnes-Jewish HospitalEnwyerbmbj70-03-8685 10:58-0500Heart rate91 /min Spencer Zarate FLANGER Work Phone: NOBarnes-Jewish HospitalSrxbgxriai17-70-9031 10:58-0633JdG8% (BldA) [Mass fraction]97 %Spencer Zarate FLANGER Work Phone: NOBarnes-Jewish HospitalYqffeonryh67-70-0656 10:58-0500Systolic blood frxubfvv057 mm[Hg]Spencer Zarate FLANGER Work Phone: NOBarnes-Jewish HospitalZmqwzgegoh37-97-4363 11:13-0500Body ucmfpx759.96 cmChris Pierre DO Work Phone: 1(419)[address] [place], [place] 4951212-20-2024 11:13-0500 Body mass index (BMI) [Ratio]27.2 kg/u7EkhpwyrChris Pierre DO Work Phone: 1(274)[address] [place], [place] 4951212-20-2024 11:13-0500 Body rteart46.16 kgChris Pierre DO Work Phone: 9(625)[address] [place], [place] 4951212-20-2024 11:13-0500 Diastolic blood mm[Hg]Chris Pierre DO Work Phone: 1(060)[address] [place], [place] 4951212-20-2024 11:13-0500 Heart rate94 /minChris Pierre DO Work Phone: 3(922)[address] [place], [place] 4951212-20-2024 11:13-0500 Respiratory rate18 /minChris Pierre DO Work Phone: 0(488)[address] [place], [place] 4951212-20-2024 11:13-0500 SaO2% (BldA) [Mass fraction]98 %Chris Pierre DO Work Phone: 1(858)[address] [place], [place] 4951212-20-2024 11:13-0500 Systolic blood xtckeokj899 mm[Hg]Chris Pierre DO Work Phone: 1(028)[address] [place], [place] 4951212-18-2024 10:38-0500 Body mass index (BMI) [Ratio]26.68 kg/g1SstmczoChris Pierre DO Work Phone: 1(968)[address] [place], [place] 7380112-18-2024 10:38-0500Body .16 kgChris Pierre DO Work Phone: 2(575)1-[address] [place], [place] [address]Bqtvgghbag00-03-6538 10:38-0500Heart rate90 /min Chris Mccauleyman DO Work Phone: 8(323)4-[address] [place], [place] [address]Fzvghpekyt05-31-2532 10:38-8559HsI0% (BldA) [Mass fraction]98 %Chris Ignacio DO Work Phone: 7(749)1-[address] [place], [place] [address]Hglvzypjjf73-55-3601 09:08-0400Diastolic blood lwdupjll42 mm[Hg]Chris Pierre DO Work Phone: [facility] HospitalEoegajzuzg18-91-3138 09:08-0400Systolic blood pfratjnj147 mm[Hg]Chris Pierre DO Work Phone: [facility] HospitalAlyzkxpokl28-72-0967 08:47-0400Body uoviaw434.9 cmJetiffanie Pierre DO Work Phone: [facility] HospitalYzbtbhlbmn62-69-4221 08:47-0400Body mass index (BMI) [Ratio]26.55 kg/f9XxahcejChris Pierre DO Work Phone: [facility] HospitalUefsoufvun82-10-0716 08:47-0400Body fhxwet97.71 kgJetiffanie Pierre DO Work Phone: [facility] HospitalTthaoowius39-17-0373 08:47-0400Heart rate97 /min Chris Pierre DO Work Phone: [facility] HospitalNpzfdyvxgb35-03-6300 08:47-2659AyA8% (BldA) [Mass fraction]98 %Chris Pierre DO Work Phone: [facility] HospitalKiwokjpffr40-08-9227 13:47-0400Blood Pressure LocationPatrick [employer] [facility]08-21-2024 13:47-0400Body gvncsliaitt07.6 [degF]Jesusita SMALL [facility]08-21-2024 13:47-0400Diastolic blood jowyicun94 mm[Hg]Jesusita [employer] [facility] [place] [address]-21-2024 13:47-0400Heart rate85 /minPatrick [employer] [facility] [place] [address]-21-2024 13:47-0400Respiratory rate18 /minPatrick [employer] [facility]08-21-2024 13:47-0400Systolic blood sgntxgru743 mm[Hg]Jesusita SMALL [facility]08-15-2024 19:10-0400Diastolic blood mm[Hg]Cole King [facility]08-15-2024 19:10-0400Heart rate91 /minTim Fernando [address] [place], [place] 3388008-15-2024 19:10-0400Mean blood mm[Hg]Cole King [address] [place], [place] 3388008-15-2024 19:10-0400 Respiratory rate16 /minTim Fernando [address] [place], [place] 3388008-15-2024 19:10-6199ZiA8% (BldA) [Mass fraction]93 %Cole King [facility]08-15-2024 19:10-0400 Systolic blood rsydyfid599 mm[Hg]Cole King [address] [place], [place] 3388008-15-2024 18:45-0400 Diastolic blood scopbkny957 mm[Hg]Cole King [facility]08-15-2024 18:45-0400Heart rate80 /minTim Fernando [address] [place], [place] 3388008-15-2024 18:45-0400Mean blood wshpclih426 mm[Hg]Cole King [address] [place], [place] 3388008-15-2024 18:45-0400 Respiratory rate16 /minTim Fernando [facility]08-15-2024 18:45-9854BrU4% (BldA) [Mass fraction]90 %Cole King [address] [place], [place] 3388008-15-2024 18:45-0400 Systolic blood svmshidc649 mm[Hg]Cole King [address] [place], [place] 3388008-15-2024 18:00-0400 Diastolic blood ibkrxssn69 mm[Hg]Cole King [address] [place], [place] 3388008-15-2024 18:00-0400Heart rate82 /minTim Fernando [address] [place], [place] 3388008-15-2024 18:00-0400Mean blood uklczwbg566 mm[Hg]Cole King [address] [place], [place] 0801608-15-2024 18:00-8304HvB6% (BldA) [Mass fraction]95 %Cole King [address] [place], [place] 3388008-15-2024 18:00-0400 Systolic blood ybqupwxt740 mm[Hg]Cole King [address]08-15-2024 16:11-0400Body wismvknjrqv85.7 [degF]Cole King [address] [place], [place] 3388008-15-2024 16:11-0400Heart rate76 /minTim Fernando [facility]07-11-2024 18:13-0400 Diastolic blood dzloywsl58 mm[Hg]DO Chris Pierre Work Phone: [facility]07-11-2024 18:13-0400 Heart rate74 /[place] Pierre Work Phone: [facility]07-11-2024 18:13-0400 Respiratory rate18 /Od[place] Pierre Work Phone: [facility]07-11-2024 18:13-0400 SaO2% (BldA) [Mass fraction]95 %DO Chris Pierre Work Phone: 1(419)[address]07-11-2024 18:13-0400 Systolic blood lfdbulzd628 mm[Hg]DO Chris Pierre Work Phone: 8(365)544-[address] [place], [place] 3837007-11-2024 16:36-0400 Body drhzfbrltim44.8 [degF]DO Chris Pierre Work Phone: 6(124)049-[address] [place], [place] 3837007-11-2024 12:45-0400 Body .96 cmDO Chris Pierre Work Phone: 1(274)611-[address] [place], [place] 3837007-11-2024 12:45-0400 Body bxaqrf25.6 kgDO Chris Pierre Work Phone: 4(839)195-[address] [place], [place] 3837002-18-2024 02:03-0500 Diastolic blood mm[Hg]DO Chris Pierre Work Phone: 2(077)291-[address] [place], [place] 3837002-18-2024 02:03-0500 Systolic blood xnbqqyct614 mm[Hg]DO Chris Pierre Work Phone: 1(690)503-[address] [place], [place] 3837002-18-2024 01:41-0500 Respiratory rate18 /BestO Chris Pierre Work Phone: 8(875)669-[address] [place], [place] 3837002-18-2024 01:41-0500 SaO2% (BldA) [Mass fraction]99 %DO Chris Pierre Work Phone: [address] [place], [place] 9571502-18-2024 01:13-0500 Heart rate79 /minDO Chris Pierre Work Phone: 7(393)108-[address] [place], [place] 3837002-18-2024 01:09-0500 Body xjkgan572.96 cmDO Chrismyke Pierre Work Phone: 9(500)877-[address] [place], [place] 3837002-18-2024 01:09-0500 Body .7 kgDO Chrismyke Pierre Work Phone: [facility]02-18-2024 00:35-0500 Body .8 [degF]DO Chrismyke Pierre Work Phone: [facility]02-07-2024 14:52-0500 Body ufqixc434.9 cmSpencer Zarate FLANGER Work Phone: [facility] HospitalFufwlgcjbd65-62-7873 14:52-0500Body mass index (BMI) [Ratio]30.24 kg/g6EdlxubtSpencer Zarate FLANGER Work Phone: [facility] HospitalGealhpehde02-58-9318 14:52-0500Body .15 kgMicmorenita Zarate FLANGER Work Phone: [facility] HospitalFveldaigjv38-12-0695 14:52-0500Diastolic blood qfecoxep71 mm[Hg]Spencer Tessa FLANGER Work Phone: [facility] HospitalTravzuxpyj50-36-0221 14:52-0500Heart rate92 /min Spencer Tessa FLANGER Work Phone: [facility] HospitalYjhqzilmad27-48-1846 14:52-3920GfE3% (BldA) [Mass fraction]96 %Spencer Buitragoos FLANGER Work Phone: [facility] HospitalDlonmsjgvt83-77-6366 14:52-0500Systolic blood ddxdzoec60 mm[Hg]Spencer Tessa FLANGER Work Phone: [facility] HospitalQmvnrmgaac36-86-1036 10:37-0400Blood Pressure LocationPatrick SMALL [facility]10-30-2023 10:37-0400Diastolic blood ldbywbav13 mm[Hg]Jesusita SMALL [facility]10-30-2023 10:37-0400Heart rate71 /minPatrick SMALL [facility]10-30-2023 10:37-0400Respiratory rate16 /minPatrick SMALL [facility]10-30-2023 10:37-0400Systolic blood wcqhchxy147 mm[Hg]Jesusita SMALL [facility] [place] [address]-25-2023 13:47-0400Body lciryb426.96 cmChris Pierre Work Phone: mp616-8858GP-Uoqlk [facility] DO Work Phone: 1(583) 146-367309-25-2023 13:47-0400Body mass index (BMI) [Ratio] 29.53 kg/g4MkfvdbfChris Pierre Work Phone: mp187-6891DY-Rxfpl [facility] DO Work Phone: 1(658) 388-179509-25-2023 13:47-0400Body surface area Derived from formula2.31 w3EfwvclvChris Pierre Work Phone: mp246-3338WN-Zsbzz [facility] DO Work Phone: 1(465) 733-463709-25-2023 13:47-0400Body oswrce606.33 kgJetiffanie Pierre Work Phone: 1(989) [phone]-Itmml [facility] DO Work Phone: 1(253) 547-700409-25-2023 13:47-0400Diastolic blood dfcqouyv59 mm[Hg] Chris Pierre Work Phone: 1(632) [phone]-Fzdoo [facility] DO Work Phone: 1(875) 713-906109-25-2023 13:47-0400Heart rate76 /minChris Pierre Work Phone: 1(486) [phone]-Xcfco [facility] DO Work Phone: 1(851) 234-874209-25-2023 13:47-0400Systolic blood gmzlwcyz035 mm[Hg] Chris Pierre Work Phone: mp212-3951MF-Aorfv [facility] DO Work Phone: 1(421) 218-728208-10-2023 11:27-0400Body ekmqdg936.96 cmChris Pierre Work Phone: mp396-3089QX-Kvowh [facility] DO Work Phone: 1(898) 531-988708-10-2023 11:27-0400Body mass index (BMI) [Ratio] 28.89 kg/g2XmhvsjwChris Mccauleyman Work Phone: mp397-0182ZY-Kdgjh [facility] DO Work Phone: 1(510) 156-794008-10-2023 11:27-0400Body surface area Derived from formula2.28 k2IugafxfChris Mccauleyman Work Phone: 1(855) [phone]-Kfdna [facility] DO Work Phone: 1(893) 765-781108-10-2023 11:27-0400Body adrjew966.06 kgChris Mccauleyman Work Phone: 1(858) [phone]-[facility]hczrDe[facility] Work Phone: 1(531) 491-300008-10-2023 11:27-0400Diastolic blood mm[Hg] Chris Mccauleyman Work Phone: 1(234) [phone]-Oayxy [facility] DO Work Phone: 1(319) 405-983808-10-2023 11:27-0400Heart rate86 /minChris Mccauleyman Work Phone: 1(846) [phone]-Ykesn [facility] DO Work Phone: 1(678) 961-860808-10-2023 11:27-0400Systolic blood ibwvcwox238 mm[Hg] Chris Pierre Work Phone: 1(113) 402-3096084-2477YH-Snpzl [facility] DO Work Phone: 1(557) 198-862007-13-2023 13:32-0400Body uhcxjf893.96 cmChris Pierre Work Phone: mp070-5601HN-Jgjjt [facility] DO Work Phone: 1(399) 260-568107-13-2023 13:32-0400Body mass index (BMI) [Ratio]29.4 kg/z4UzhrnqpChris Pierre Work Phone: 1(830) [phone]-XlpzjDe[facility] Work Phone: 1(946) 773-202907-13-2023 13:32-0400Body surface area Derived from formula2.3 w0Beloqvf A Ignacio Work Phone: 1(853) [phone]-Pujhv [facility] DO Work Phone: 1(802) 698-961307-13-2023 13:32-0400Body spskil506.87 kgJetiffanie Hinson Ignacio Work Phone: 1(639) [phone]-Lbilj [facility] DO Work Phone: 1(892) 787-907707-13-2023 13:32-0400Diastolic blood znirenlk14 mm[Hg] Chris Hinson Ignacio Work Phone: 1(786) [phone]-Hjqwz [facility] DO Work Phone: 1(998) 290-867007-13-2023 13:32-0400Heart rate65 /minJetiffanie Hinson Ignacio Work Phone: 1(567) [phone]-Riqrz [facility] DO Work Phone: 1(481) 657-677707-13-2023 13:32-0400Systolic blood axauemlo110 mm[Hg] Chris Hinson Ignacio Work Phone: 1(185) [phone]-Uvkpq [facility] DO Work Phone: 1(450) 546-986206-26-2023 10:51-0400Body yzsgdt515.96 cmJetiffanie Hinson Ignacio Work Phone: 1(597) [phone]-Zpfbq [facility] DO Work Phone: 1(739) 747-369206-26-2023 10:51-0400Body mass index (BMI) [Ratio] 29.79 kg/m4Mjelfzy A Ignacio Work Phone: 1(943) [phone]-Xxqhg [facility] DO Work Phone: 1(490) 137-728506-26-2023 10:51-0400Body surface area Derived from formula2.31 p5RwnglypChris Mccauleyman Work Phone: 1(594) [phone]-Yrlbl [facility] DO Work Phone: 1(475) 333-818506-26-2023 10:51-0400Body omjief928.24 kgChris Hinson Ignacio Work Phone: 1(954) [phone]-Jowth [facility] DO Work Phone: 1(698) 792-312406-26-2023 10:51-0400Diastolic blood shvnuixm49 mm[Hg] Chris Pierre Work Phone: 1(310) [phone]-Zeqsa [facility] DO Work Phone: 1(926) 218-600806-26-2023 10:51-0400Heart rate66 /minChris Mccauleyman Work Phone: 1(523) [phone]-Pvksl [facility] DO Work Phone: 1(904) 849-622506-26-2023 10:51-0400Systolic blood aalmkuxg48 mm[Hg] Chris Pierre Work Phone: 1(740) [phone]-Nmglk [facility] DO Work Phone: 1(492) 268-273206-19-2023 11:42-0400Body amjjri883.96 cmChris Mccauleyman Work Phone: 1(330) [phone]-Phppw [facility] DO Work Phone: 1(605) 144-106606-19-2023 11:42-0400Body mass index (BMI) [Ratio] 29.92 kg/i6YppkhmkChris Mccauleyman Work Phone: 1(397) [phone]-Axmse [facility] DO Work Phone: 1(428) 823-233906-19-2023 11:42-0400Body surface area Derived from formula2.32 j6DatiuxwChris Pierre Work Phone: 1(159) [phone]-Atcmo [facility] DO Work Phone: 1(846) 561-429606-19-2023 11:42-0400Body fwzikm742.69 kgChris Mccauleyman Work Phone: 1(989) [phone]-Kstdi [facility] DO Work Phone: 1(939) 613-834706-19-2023 11:42-0400Diastolic blood btipqptb46 mm[Hg] Chris Pierre Work Phone: 1(609) [phone]-Akone [facility] DO Work Phone: 1(631) 507-757206-19-2023 11:42-0400Heart rate64 /minChris Hinson Ignacio Work Phone: 1(146) [phone]-Rhqcf [facility] DO Work Phone: 1(549) 316-915506-19-2023 11:42-0400Systolic blood lsgbxnad221 mm[Hg] Chris Mccauleyman Work Phone: 1(351) [phone]-Lzbmp [facility] DO Work Phone: 1(664) 733-130005-15-2023 11:33-0400Body ptrgoz014.96 cmChris Hinson Ignacio Work Phone: 1(736) [phone]-Pbian [facility] DO Work Phone: 1(642) 513-243405-15-2023 11:33-0400Body mass index (BMI) [Ratio] 29.79 kg/r8Xvblktu A Ignacio Work Phone: 1(889) [phone]-Totnz [facility] DO Work Phone: 1(555) 248-728405-15-2023 11:33-0400Body surface area Derived from formula2.31 o5Yriebsu A Ignacio Work Phone: 1(651) [phone]-Xqjck [facility] DO Work Phone: 1(839) 885-203405-15-2023 11:33-0400Body bpeqic763.24 kgChris Hinson Ignacio Work Phone: 1(367) [phone]-Idlnz [facility] DO Work Phone: 1(550) 842-753205-15-2023 11:33-0400Diastolic blood lsgpvlat61 mm[Hg] Chris Pierre Work Phone: 1(972) [phone]-Zrqyv [facility] DO Work Phone: 1(984) 588-776305-15-2023 11:33-0400Heart rate68 /minChris Mccauleyman Work Phone: 1(840) [phone]-Ixwbd [facility] DO Work Phone: 1(242) 259-851605-15-2023 11:33-0400Systolic blood gaipxcgm191 mm[Hg] Chris Pierre Work Phone: 1(182) [phone]-TzgmyDeer [facility] [facility] DO Work Phone: 1(287) 584-709602-06-2023 13:22-0500Body dbharh258.96 cmChris Pierre Work Phone: 1(556) [phone]-LeukiDeer River [facility] [facility] DO Work Phone: 1(422) 641-579502-06-2023 13:22-0500Body mass index (BMI) [Ratio] 29.79 kg/r1XbbzlrtChris Pierre Work Phone: 1(437) [phone]-JmxtcDeer [facility] [facility] DO Work Phone: 1(796) 113-368402-06-2023 13:22-0500Body surface area Derived from formula2.31 q1HipzykzChris Pierre Work Phone: 1(486) [phone]-QohnsDeer [facility] [facility] DO Work Phone: 1(672) 219-341502-06-2023 13:22-0500Body yyjjch906.24 kgChris Pierre Work Phone: 1(709) [phone]-ZpkrpDeer [facility] [facility] DO Work Phone: 1(155) 424-359902-06-2023 13:22-0500Diastolic blood ubznlaqu67 mm[Hg] Chris Pierre Work Phone: 1(464) [phone]-HncjpDeer [facility] [facility] DO Work Phone: 1(748) 380-471702-06-2023 13:22-0500Heart rate60 /minChris Pierre Work Phone: 1(143) [phone]-JbedgDeer River [facility] DO Work Phone: 1(400) 327-227302-06-2023 13:22-0500Systolic blood fdlvwrun319 mm[Hg] Chris Pierre Work Phone: 1(874) [phone]-SrsgwDeer [facility]-[place] [address] DO Work Phone: 1(649) 638-125309-12-2022 10:19-0400Blood Pressure LocationPatrick STACI [facility]09-12-2022 10:19-0400Diastolic blood zsoqqtln71 mm[Hg]Jesusita SMALL [facility]09-12-2022 10:19-0400Heart rate71 /minPatrick STACI [facility]09-12-2022 10:19-0400Respiratory rate16 /minPatrick STACI [facility]09-12-2022 10:19-0400Systolic blood edqgmdcz401 mm[Hg]Jesusita SMALL [facility]05-13-2022 12:00-916351 1Jradha Pierre Work Phone: mp643-7523HM-[facility]vwouS[facility] Work Phone: Comment on above:ORTETCFK8330-59-4756 10:18-0500Body djosbr022.96 cmJetiffanie Pierre Work Phone: 1(103) [phone]-Dwmhe [facility] DO Work Phone: 1(910) 906-793501-10-2022 10:18-0500Body mass index (BMI) [Ratio]28.5 kg/s3OjeaxibChris Pierre Work Phone: mp535-2472IW-Arpqw [facility] DO Work Phone: 1(654) 317-161901-10-2022 10:18-0500Body surface area Derived from formula2.27 z5EdddwnyChris Pierre Work Phone: mp021-5241UW-Caozr [facility] DO Work Phone: 1(528) 564-898101-10-2022 10:18-0500Body .7 kgJetiffanie Pierre Work Phone: mp852-7612IP-Zfipk [facility] DO Work Phone: 1(992) 830-206401-10-2022 10:18-0500Diastolic blood gcdounvh49 mm[Hg] Chris Pierre Work Phone: mp028-7465MS-Htfvp [facility] DO Work Phone: 1(615) 475-272501-10-2022 10:18-0500Heart rate65 /minChris Pierre Work Phone: mp412-3447LW-Kojpc [facility] DO Work Phone: 1(948) 178-565201-10-2022 10:18-0500Systolic blood uerjujnk382 mm[Hg] Chris Pierre Work Phone: mp622-3406EG-Zbtit [facility] DO Work Phone: Encounters Encounter DateEncounter TypeCare ProviderFacilityStart: 99-47-8302xgrqpjyirp Jesusita Payan WATERSFacility:[place] BellevueStart: 06-23-2025 End: 05-15-5005qqlcyvcjluLwgecqpyg FibroscanFacility:[facility]art: 06-23-2025 End: 87-69-9546Dkktmea encounter procedureTemporary [facility]rosc[facility] Work Phone: Start: 06-16-2025 End: 22-31-2658Gdhycd outpatient visit 25 minutesSpencer Zarate FLANGER Work Phone: [facility] Internal MedicineComment on above: Bilateral low back pain without sciatica, unspecified chronicity (Primary Dx); DJD (degenerative joint disease), lumbosacral; Spondylolisthesis at L4-L5 level; Adrenal adenoma, right; Metabolic dysfunction-associated steatotic liver disease (MASLD); Encounter for screening for lung cancerStart: 06-16-2025 End: 95-66-8460agnvspelyoXRBZVPX L POULOSNot AvailableStart: 04-27-2025 End: 07-13-7634Wesqvx outpatient visit 15 minutesJessica L Didion FLANGER Work Phone: [facility] Internal MedicineComment on above:Acute cough (Primary Dx); Lower respiratory infection; Shortness of breathStart: 04-27-2025 End: 99-51-3645uttrtaicyfMTESWAK L DIDIONNot AvailableStart: 04-21-2025 End: 57-60-7318Ayjkrf outpatient visit 15 minutesJessica L Didion FLANGER Work Phone: [facility] Internal MedicineComment on above:Lower respiratory infection (Primary Dx); Acute coughStart: 04-21-2025 End: 57-08-5797lznmuqijjoOUUCMXS L DIDIONNot AvailableStart: 04-05-2025 End: 97-32-1149suldomfsqiQwbzsbj Garman DO Work Phone: [facility] Work Phone: Start: 04-05-2025 End: 19-29-5262Dvnccab encounter procedureMisha Chauhan MD-[facility] Work Phone: Start: 04-02-2025 End: 91-62-0077Txvcdf outpatient visit 15 minutesJessica L Didion FLANGER Work Phone: [facility] Internal MedicineComment on above:Right flank pain (Primary Dx); History of renal calculiStart: 04-02-2025 End: 76-99-7388xtnqqxezyvZJNQSNS L DIDIONNot AvailableStart: 03-23-2025 End: 16-77-8250Yemhndl encounter procedureMisha Chauhan MD-[facility] Work Phone: Start: 03-23-2025 End: 57-45-2073sbzgoqaapgZcxipqw Garman DO Work Phone: [facility] Work Phone: Start: 03-19-2025 End: 24-05-4733Csjkbh follow up visit related to original pxFredric H Itzkowitz DO Work Phone: [facility] AssociatesComment on above:Lipoma of other specified sites (Primary Dx)Start: 03-19-2025 End: 95-45-7751innizwpqteQVMXLPG H ITZKOWITZNot AvailableStart: 03-10-2025 End: 00-95-8551Crabavpi Result EncounterFredric H Itzkowitz DO Work Phone: [facility] UnsolicitedStart: 03-10-2025 End: 79-89-4497Zjswcosq Result EncounterFredric H Itzkowitz DO Work Phone: [facility] UnsolicitedStart: 03-10-2025 End: 89-82-4280lgbhxcqtlaNsbatfg Ignacio DO Work Phone: [facility] Work Phone: Start: 03-10-2025 End: 91-54-1512Sdwybcbc ReferredFredric Itzkowitz DO-Lab [facility] Work Phone: Start: 02-26-2025 End: 09-71-6066Ydixxd outpatient visit 15 minutesFredric H Itzkowitz DO Work Phone: [facility] GENSComment on above:Lipoma of other specified sitesStart: 02-26-2025 End: 07-12-7857extlmvznemUBGBEUB H ITZKOWITZNot AvailableStart: 02-23-2025 End: 25-05-9757Rtlpiy flowsJen Pierre DO Work Phone: [facility] IMStart: 02-23-2025 End: 13-00-5401Ylucqv flowsheetChris Hinson Ignacio DO Work Phone: [facility] IMStart: 02-23-2025 End: 51-10-4938Shhfdi outpatient visit 40 minutesJetiffanie Pierre DO Work Phone: [facility] IMComment on above:Primary hypertension (Primary Dx); Pain of left hip; Coronary artery disease involving [place] coronary artery of [place] heart without angina pectoris ; Type 2 diabetes mellitus with other specified complication, without long-term current use of insulin (HCC); Mixed hyperlipidemia ; Lipoma of other specified sites; Blood donor; Low serum total protein level; ThrombocytopeniaStart: 02-23-2025 End: 55-62-9115btxvcsbtnlKWZCMBP A GARMANNot AvailableStart: 02-16-2025 End: 58-33-3610Yexzcaw encounter procedureSPENCER ZARATE RN MSN-Lab [facility] Work Phone: Start: 02-16-2025 End: 22-96-5009buchcbinfcKezuibs Garman DO Work Phone: [facility] Work Phone: Start: 12-22-2024 End: 13-31-6754yxwcisqazpMyjyehtsrMagruder Memorial Hospital Work Phone: Start: 12-22-2024 End: 46-14-5730Nhskwof [facility]Le[facility] Work Phone: Start: 11-17-2024 End: 62-14-1361yftekkxrenBbhjyee Garman DO Work Phone: [facility] Work Phone: Start: 11-17-2024 End: 58-26-1442Qajzfqg encounter procedureChris Pierre DO Work Phone: [facility] Work Phone: Start: 11-12-2024 End: 74-91-4842Nwdedd flowsJen Pierre DO Work Phone: [facility] IMStart: 11-12-2024 End: 80-02-0666Smkvtd Abner Pierre DO Work Phone: [facility] IMStart: 11-12-2024 End: 73-86-5478Bmidvt outpatient visit 25 minutesChris Pierre DO Work Phone: [facility] IMComment on above:Influenza A (Primary Dx); Acute cough; Type 2 diabetes mellitus with other specified complication, without long-term current use of insulinStart: 11-12-2024 End: 51-22-0355qvjcxutczsEFYCRLG A KARLOSMANNot AvailableStart: 10-29-2024 End: 94-02-7415nbjccechtqYculqdn Ignacio DO Work Phone: [facility] Work Phone: Start: 10-29-2024 End: 69-37-4545Jxmzrqj encounter procedureElioamarilismyke Pierre DO Work Phone: [facility] Cardiology Work Phone: Start: 10-28-2024 End: 04-25-0894zacadnlqmtUEIWCUI A SAMUELot AvailableStart: 09-23-2024 End: 11-52-8356dcnlhfokldUdioted Ignacio DO Work Phone: [facility] Work Phone: Start: 09-23-2024 End: 11-65-1755Cgukfco encounter procedureChris Pierre DO Work Phone: [facility] Work Phone: Start: 09-17-2024 End: 37-34-7107olhjamujgqCGOEBUN L POULOSNot AvailableStart: 09-17-2024 End: 20-39-2855Kajcbi flowsJen A Ignacio DO Work Phone: [facility] IMStart: 09-17-2024 End: 97-17-1245Brapch flowsJen A Ignacio DO Work Phone: [facility] IMStart: 09-17-2024 End: 90-42-2531Avimwh outpatient visit 15 minutesMicmorenita Zarate FLANGER Work Phone: [facility] IMComment on above:Lumbosacral pain (Primary Dx); Chronic right shoulder pain; Shortness of breath; Sacroiliac joint painStart: 09-17-2024 End: 10-04-0758znfenadupaBMTSGIZ L POULOSKassandra AvailableStart: 09-01-2024 End: 14-84-9863Oecyursas Result EncounterGeneric External Data ProviderNOMS External Department UnsolicitedStart: 09-01-2024 End: 75-73-8547Pvywzkpdb Result EncounterGeneric External Data ProviderNOMS External Department UnsolicitedStart: 21-15-6948Uox-patient / Non-visitChris Pierre DO Work Phone: [facility] Work Phone: Start: 09-01-2024 End: 12-60-1535Hhpcsznud to same day surgery centerChris Pierre DO Work Phone: [facility] Work Phone: Start: 09-01-2024 End: 30-74-6314ejztrzuzbkNnwtznn Garman DO Work Phone: [facility] Work Phone: Start: 08-31-2024 End: 65-13-2913pikloktemmTeqlsod R WATERSFacility:[place]Start: 08-31-2024 End: 74-96-1389Wtixgtj encounter procedureJesusita SMALL [facility] start: 08-28-2024 End: 72-01-5415Xerzyjh encounter procedureChris Pierre DO Work Phone: [facility] Work Phone: Start: 08-28-2024 End: 18-56-7089vjenkvdjktJyhdzrp Garman DO Work Phone: [facility] Work Phone: Start: 44-36-9112Iinsqjbkb for preprocedural laboratory examinationGeorge Kannan Cordero [facility] Start: 08-25-2024 End: 84-34-2301Rjwkuv flowsJen Pierre DO Work Phone: [facility] IMStart: 08-25-2024 End: 19-13-9094Xnqabp flowsJen Pierre DO Work Phone: [facility] IMStart: 08-25-2024 End: 62-02-1094Gfnybn outpatient visit 25 minutesSpencer Zarate FLANGER Work Phone: [facility] IMComment on above:Medicare annual wellness visit, subsequent (Primary Dx); ACP (advance care planning); Type 2 diabetes mellitus with other specified complication, without long-term current use of insulin (CMS/HCC); Benign prostatic hyperplasia without lower urinary tract symptoms; Coronary artery disease involving [place] coronary artery of [place] heart without angina pectoris (CMS/HCC); Primary hypertension (CMS/HCC); Mixed hyperlipidemia (CMS/HCC); Thrombocytopenia (CMS/HCC); Prostate cancer screening; Need for vaccination with 20-polyvalent pneumococcal conjugate vaccineStart: 08-25-2024 End: 43-68-8666Eewzjif encounter procedureSpencer Zarate FLANGER Work Phone: [facility] Work Phone: Start: 08-25-2024 End: 51-89-5353xruvvmstgkVEPNQWL L POULOSNot AvailableStart: 08-18-2024 End: 87-74-4750Nktdpubh Result EncounterChris Pierre DO Work Phone: [facility] External Department UnsolicitedStart: 08-18-2024 End: 20-24-9285Ejkacpib Result EncounterChris Pierre DO Work Phone: [facility] External Department UnsolicitedStart: 08-18-2024 End: 07-45-9620Pzbvvim encounter procedureChris Pierre DO Work Phone: [facility] [place] Work Phone: Start: 08-18-2024 End: 88-02-4525mqegwczymdGjboqep Garman DO Work Phone: [facility] Work Phone: Start: 07-31-2024 End: 07-85-9991ntadtkhyvtIkvhcd Augustine KoromiaFacility:[facility] Hospitaltart: 07-31-2024 End: 59-31-6960Ctbrzzi encounter procedureChris Pierre DO Work Phone: [facility] Work Phone: Start: 07-29-2024 End: 58-23-1855Jeksaj flowsJen Pierre DO Work Phone: [facility] IMStart: 07-29-2024 End: 37-89-5165Ndhecr Abner Pierre DO Work Phone: [facility] IMStart: 07-29-2024 End: 93-27-3190Wmuzfx outpatient visit 25 minutesJetiffanie Pierre DO Work Phone: [facility] IMComment on above:Primary hypertension (CMS/HCC) (Primary Dx); Type 2 diabetes mellitus with other specified complication, without long-term current use of insulin (CMS/HCC); Pain of left hip; Greater trochanteric bursitis of left hip; Coronary artery disease involving [place] coronary artery of [place] heart without angina pectoris (CMS/HCC)Start: 07-29-2024 End: 26-37-6722hjwhyiyzwzPAJWWLR A GARMANNot AvailableStart: 07-16-2024 End: 20-90-9937Kmnnqei encounter procedureChris Pierre DO Work Phone: [facility] [place] Work Phone: Start: 07-16-2024 End: 06-29-3646kyuxcazpjlZbvf PrendesFacility:[facility] Start: 06-19-2024 End: 37-70-7977hvnfllewfhNqyarnk Garman DO Work Phone: [facility] Work Phone: Start: 06-19-2024 End: 38-94-0723Uswmzvu encounter procedureChris Pierre DO Work Phone: [facility] [place] Work Phone: Start: 06-17-2024 End: 86-31-2379ohldsxswohQW Chris Pierre Work Phone: [facility] Work Phone: Start: 06-17-2024 End: 01-73-6052Sreyyyw encounter procedureDO Chris Pierre Work Phone: [facility] [place] Work Phone: Start: 54-27-1780czvwifzjnmXgrmplz R WATERSFacility:EU BellevueStart: 05-12-2024 End: 51-69-5440Vusdhc flowsJen Joya Pierre DO Work Phone: [facility] IMStart: 05-12-2024 End: 14-08-9014Twcitk poloeddEliotiffanie Joya Pierre DO Work Phone: [facility] IMStart: 05-12-2024 End: 80-81-0367Lzkkfl outpatient visit 25 minutesChris Mccauleyman DO Work Phone: [facility] IMComment on above:Primary hypertension (CMS/HCC) (Primary Dx); Type 2 diabetes mellitus with other specified complication, without long-term current use of insulin (CMS/HCC); Benign prostatic hyperplasia without lower urinary tract symptoms; Coronary artery disease involving [place] coronary artery of [place] heart without angina pectoris (CMS/HCC); Trochanteric bursitis of left hip; Other secondary osteoarthritis of left hipStart: 04-14-2024 End: 98-95-7995pqffkjqvofMubdjhj R WATERSFacility:FTMCStart: 04-14-2024 End: 78-97-8662Soacjgd encounter procedurePatrick R SMALL [facility] Start: 92-38-6373Skl-patient / Non-visitDO Chris Pierre Work Phone: [facility] Work Phone: Start: 04-01-2024 End: 65-12-8216Lly Drop offJesusita SMALL [facility] Start: 04-01-2024 End: 64-59-6088qcfvbmfxwxWvvrjqs R WATERSFacility:FTMCStart: 04-01-2024 End: 19-81-9805Kigkrec encounter procedureJesusita SMALL [facility] [place] Start: 04-01-2024 End: 58-96-5908sczpwjxelfZW Chris Pierre Work Phone: [facility] Work Phone: Start: 04-01-2024 End: 90-90-9404Bkxqsgo encounter procedureDO Chris Pierre Work Phone: [facility] Work Phone: Start: 03-26-2024 End: 58-84-3624Jastrnwsb department patient visitTim Fernando [facility] Start: 03-16-2024 End: 37-02-1001kbcyvdlfwaYDPEIXPiedmont [facility] AmbulatoryStart: 02-20-2024 End: 32-66-3089Tuawfvghz department patient visitDO Chris Pierre Work Phone: [facility]-Emergency Room Work Phone: Start: 02-04-2024 End: 58-23-1272hturzskhijMO Chris Pierre Work Phone: [facility] Work Phone: Start: 02-04-2024 End: 27-35-8620Yywfepg encounter procedureDO Chris Pierre Work Phone: [facility] [place] Work Phone: Start: 09-29-2023 End: 51-14-9376Jeufmvnca department patient visitDO Chris Pierre Work Phone: [facility]-Emergency Room Work Phone: Start: 09-18-2023 End: 62-16-5470Vsjyxp outpatient visit 25 minutesMichelkathy Zarate FLANGER Work Phone: [facility] IMComment on above:Primary hypertension (CMS/HCC) (Primary Dx); Orthostatic hypotension; LightheadednessStart: 08-13-2023 End: 63-45-2595Sxykina encounter procedureSpencer Zarate FLANGER Work Phone: noms HealthcareStart: 08-02-2023 End: 91-13-3714crklonbhmnGR Chris Pierre Work Phone: [facility] Work Phone: Start: 08-02-2023 End: 23-60-7547Cfsvwyq encounter procedureDO Chris Pierre Work Phone: [facility] [place] Work Phone: Start: 07-09-2023 End: 22-47-4629lrwuxobdmgPL Chris Pierre Work Phone: [facility] Work Phone: Start: 07-09-2023 End: 15-83-7196Ssidfxh encounter procedureDO Chris Pierre Work Phone: [facility] [place] Work Phone: Start: 06-10-2023 End: 68-48-0413Tdurkla encounter procedureJesusita SMALL [facility] start: 52-11-4221Lmwecvx encounter procedureChris Pierre Work Phone: [phone]-[place] [facility] [address] DO Work Phone: Start: 03-74-0977ftbyvwpoxqFt. Chris Pierre Facility:[id number]: 92-43-5118Jxktjp outpatient visit 25 minutesChris Pierre Work Phone: [phone]-Vrrtz [facility] [address] DO Work Phone: Start: 26-47-8167pcbggaraccLq. Chris Pierre Facility:[id number]: 50-76-1281Aixzw UpdateChris Pierre Work Phone: [phone]-Mfizy [facility] [address] DO Work Phone: Start: 03-07-2023 End: 34-14-2468fawhnledeqEX Chris Pierre Work Phone: [facility] Work Phone: Start: 03-07-2023 End: 21-64-4902Upvwiac encounter procedureDO Chris Pierre Work Phone: [facility]-Lab [facility] Work Phone: Start: 30-27-7143Wzpixgh encounter procedureChris Pierre Work Phone: [phone]-Vpkkx [facility] [address] DO Work Phone: Start: 37-70-8232Hgrmkxu encounter procedureChris Pierre Work Phone: [phone]-Hliky [facility] [address] DO Work Phone: Start: 16-94-2221sqbrodnmviDa. Chris Pierre Facility:[id number]: 02-15-2023 End: 79-81-2720xyyliblewlHS Chris Pierre Work Phone: [facility] Work Phone: Start: 02-15-2023 End: 11-20-7983Knigmpe encounter procedureDO Chris Pierre Work Phone: [facility]-CT Scan [facility] [place] Work Phone: Start: 46-17-5161DDKEQZ NATALI, Provider: BROOKE BENSON 01,[id number], Status: Pen, Time: 2:30 PMChris Pierre Work Phone: [phone]-Roijt [facility] [address] DO Work Phone: Start: 59-15-3223aunkmoudmzGz. Chris Mccauleyman Facility:[id number]: 64-66-6688Cfqksz outpatient visit 25 minutesChris Pierre Work Phone: [phone]-Fnnga [facility] [address] DO Work Phone: Start: 22-68-9803jpwcvoqlbnEj. Chris Pierre Facility:[id number]: 60-37-6907Shwglz outpatient visit 25 minutesChris Pierre Work Phone: [phone]-Iximn [facility] DO Work Phone: Start: 01-28-2023 End: 80-33-2930ekmgcnmpbhZK Chris Pierre Work Phone: [facility] Work Phone: Start: 01-28-2023 End: 84-98-0263Kydardv encounter procedureDO Chris Pierre Work Phone: [facility]-XRay [facility] [place] Work Phone: Start: 53-77-6959Ajjfg UpdateChris Pierre Work Phone: [phone]-Dzxab [facility] DO Work Phone: Start: 01-09-2023 End: 85-48-3486djuvllczpwMA Chris Pierre Work Phone: [facility] Work Phone: Start: 01-09-2023 End: 97-55-6117Ygatkhv encounter procedureDO Chris Pierre Work Phone: [facility]-Electrodiagnostics Work Phone: Start: 10-26-0800Cwdgrtijp encounterChris Pierre Work Phone: [facility] Work Phone: Start: 39-70-4722Gmeqhm outpatient visit 25 minutes Chris Pierre Work Phone: [phone]-[facility]zpizCook [facility] 250 DO Work Phone: Start: 50-34-6304kwbnzybbuvNM SHANTHI LANCASTER Facility:[id number]: 11-22-2022 End: 87-41-7486Lcldddh encounter procedureDO Chris Pierre Work Phone: [facility]-Respiratory Therapy Work Phone: Start: 16-84-6676Sjdaic outpatient visit 25 minutes Chris Pierre Work Phone: [phone]-SuulpM [facility]us[facility] 250 DO Work Phone: Start: 83-92-8052glpleshelxTtHerbert Pierre Facility:[id number]: 20-83-4623Tndspnjbb encounterSlai Porras MD Work Phone: [facility]mologyComment on above:LetterStart: 08-31-2022 End: 89-31-8624Wjjshnp encounter procedureSlai Porras MD Work Phone: [facility]hthalmologyComment on above:Glaucoma suspect of right eye (Primary Dx)Start: 08-02-2022 End: 56-46-1821yxasvqmpekXV Chris Pierre Work Phone: [facility] Work Phone: Start: 08-02-2022 End: 44-22-6002Pksmowu encounter procedureDO Chris Pierre Work Phone: [facility] [place] Work Phone: Start: 94-33-7837Uimlmnprz Joan Porras MD Work Phone: [facility]hthalmologyComment on above:LetterStart: 59-62-7072Xebwwyerd Joan Porras MD Work Phone: [facility]hthalmologyComment on above:Future AppointmentStart: 07-20-2022 End: 52-58-7126asziywctlmMQDAUT C PAPARIZOSFacility:[facility] Start: 07-20-2022 End: 97-94-6813Zynzrqy encounter procedureSlai Porras MD Work Phone: [facility]hthalmologyComment on above:Low tension glaucoma of left eye, indeterminate stage (Primary Dx)Start: 77-40-7904Xadxxybvg Joan Porras MD Work Phone: [facility]hthalmologyComment on above:LetterStart: 06-12-2022 End: 75-46-9994qtwjmjhypkVV Chris Pierre Work Phone: [facility] Work Phone: Start: 06-12-2022 End: 74-06-7951Pftrwxo encounter procedureDO Chris Pierre Work Phone: [facility] HospitalStart: 06-01-2022 End: 87-33-9491hcpjswmhsfXHBBIULMike KNOWLESFacility:[facility] Start: 06-01-2022 End: 29-42-6896Pvsxtdb encounter procedureSlai Porras MD Work Phone: [facility]hthalmologyComment on above:Low tension glaucoma of left eye, indeterminate stage (Primary Dx); Glaucoma suspect of right eyeStart: 04-24-2022 End: 22-23-7624Kfkgqhm encounter procedureDO Chris Pierre Work Phone: [facility]Ray [facility] HospitalStart: 04-23-2022 End: 40-06-6825Jiveurx encounter procedurePagemma SMALL [facility] start: 13-21-7415wqzodjmgqeMh. Chris Pierre Facility:[id number]: 89-55-9029Prrir UpdateChris Pierre Work Phone: [phone]-HwjtbPark [facility] 600 DO Work Phone: Start: 01-31-2022 End: 19-87-7294Cwhzzrn encounter procedureDO Chris Pierre Work Phone: [facility]Lab [facility] HospitalStart: 26-00-6981Qgrpnij encounter procedureChris Pierre Work Phone: [phone]-BlkeyDe[facility] Work Phone: Start: 51-33-4402HDYEAMvdwgkz A Garman Work Phone: [phone]-XkaruFairmont Hospital and ClinicWest Bend 600 DO Work Phone: Start: 32-23-9611Jswiity encounter procedureChris Pierre Work Phone: [phone]-RomtjDeer River [facility] Care [facility]-[place] 250 DO Work Phone: Start: 05-33-7751Bi RenewalChris Pierre Work Phone: [phone]-EinqiFairmont Hospital and ClinicHowe 250 DO Work Phone: Start: 30-15-2788Bwmptz outpatient visit 25 minutes Chris Pierre Work Phone: [phone]-Htnlp [facility] DO Work Phone: Start: 03-16-2021 End: 68-58-3686rpamcrqglqIP JESUSITA SMALLFacility:K3Whlps: 47-62-2753Uslznfxfn for other preprocedural examinationDR JESUSITA [facility] HospitalStart: 82-80-2776Mazuprghx for preprocedural cardiovascular examinationDR JESUSITA [facility] HospitalStart: 55-64-5576Owaurtxjg for preprocedural laboratory examinationDR JESUSITA [facility] HospitalStart: 03-13-2021 ambulatoryDR JESUSITA SMALLFacility:C0Ehmxn: 03-08-2021 End: 93-80-9156ebgxalyuulTY JESUSITA SMALLFacility:F4Qledh: 03-08-2021 End: 81-95-7267Ntkkglzat for preprocedural laboratory examinationDR JESUSITA SMALLFacility:H1 Procedures DateProcedureProcedure DetailPerforming ClinicianStart: 43-47-3474Vxmvkfivus elastography of liverJessenia Loving MD Work Phone: Start: 68-86-6498VMAKJH COVID-19/FLUJessica L Didion FLANGER Work Phone: Start: 26-95-0128Bubzi dip stick/tablet rgnt non-auto w/o micrscpJessica L Didion FLANGER Work Phone: Start: 55-78-2131AMAJJWLAZ REQUEST FOR LAB CORPFredric H Oksana DO Work Phone: Start: 08-25-6564BBGPQU COVID-19/Summer Pierre DO Work Phone: Start: 18-17-8631QL LHC & COR AngioChris Pierre DO Work Phone: Start: 80-43-1402JN RHCChris Pierre DO Work Phone: Start: 18-71-6620SF RHC/LHC w/Cor AngioElioamarilismyke Ignacio DO Work Phone: Start: 07-07-9158Sboapmj Ignacio DO Work Phone: Start: 84-73-3294QM ABDOMEN 1VGeneric External Data ProviderStart: 74-17-7978Chqzptccnu glycosylated q8fXoibxof A Ignacio DO Work Phone: Start: 84-02-9968NREJ AND CBCElioamarilismyke Hinson Ignacio DO Work Phone: Start: 83-65-9063Xrodudernr glycosylated e1xJafnits Lida Zarate FLANGER Work Phone: Start: 42-15-1042Lpffvmdggg radiography of abdomenDO Chris Pierre Work Phone: Start: 75-84-0109MR of abdomen and pelvis without contrastDO Chris Mccauleyman Work Phone: Start: 09-85-1967HK of thorax with contrastDO Chris Mccauleyman Work Phone: Start: 29-47-9796Bvydquayhar Panel (PCR)DO Chris Mccauleyman Work Phone: Start: 36-86-6409Ccgjw chest X-rayDO Chris Pierre Work Phone: Start: 60-08-8122Yuglsqhbffdiwhx by laser surgery Tamanna Porras MD Work Phone: Start: 20-67-3159Nmgvfewojvywmqi by laser surgery Tamanna Porras MD Work Phone: Start: 32-06-0867Uebzt chest X-rayDO Chris Pierre Work Phone: Start: 36-88-6516Ptmvyidfatvm ophthalmic imaging optic nerveSteelijah Porras MD Work Phone: Start: 49-83-6440Hdpxrtnpvz radiography of abdomenDO Chrismyke Pierre Work Phone: Start: 83-34-4168Qwmkeeanull of kneeJesusita SMALL Comment on above:rightStart: 73-80-1405Jjcagjxsfzd Jesusita SMALL Start: 61-97-0451Dpkmyvomhebpfyvgy with ureteroscopy and pyeloscopyJesusita SMALL Start: 98-40-7995Pusgxucydkcyw prostatectomyJesusita SMALL Bone spur of left footJesusita SMALL ColonoscopyJesusita SMALL Laser photocoagulation to retinaChris Pierre Work Phone: LithotripsyChris Pierre Work Phone: Operative procedure on footChris Pierre Work Phone: Operative procedure on kneeChris Pierre Work Phone: Renal lithotripsyChris Pierre Work Phone: Repair of meniscusChris Pierre Work Phone: TonsillectomyChris Pierre Work Phone: TonsillectomyJesusita SMALL Total colonoscopyChris Pierre Work Phone: Comment on above:12Ijd3510;VasectomyJesusita SMALL Plan of Treatment DateCare ActivityDetailAuthorStart: 87-48-5721Hozbz screening for protein Diabetes: Urine Protein ScreeningNOAK HealthcareStart: 09-02-2025 End: 36-88-9548Qbyxzqm encounter procedureNOMS [facility] IMStart: 01-14-2026Medicare Annual Wellness (AWV)Medicare Annual Wellness (AWV)[facility] HealthcareStart: 07-28-2025 End: 43-83-0075Suqudnc encounter npyhivwtq54/17/2025 4:00 PM EST Office Visit [facility] [address] [place] [address] [phone] [facility] MedicineStart: 06-17-2025 End: 14-36-2969Geyhp metabolic 1998 panel - Serum or PlasmaBasic metabolic panel Lab Routine Metabolic dysfunction-associated steatotic liver disease (MASLD) E xpected: 06/17/2025 (Approximate), Expires: 07/16/2025NOAK HealthcareComment on above:Expected: 06/17/2025 (Approximate), Expires: 07/16/2025Start: 06-17-2025 End: 52-30-4825HFH W Auto Differential panel - BloodCBC and differential Lab Routine Metabolic dysfunction-associated steatotic liver disease (MASLD) Ex pected: 06/17/2025 (Approximate), Expires: 07/16/2025[facility] HealthcareComment on above:Expected: 06/17/2025 (Approximate), Expires: 07/16/2025Start: 06-17-2025 End: 72-59-0139Mwxyvay function 2000 panel - Serum or PlasmaHepatic function panel Lab Routine Metabolic dysfunction-associated steatotic liver disease (MASLD)Expected: 06/17/2025 (Approximate), Expires: 07/16/2025[facility] Healthcare Comment on above:Expected: 06/17/2025 (Approximate), Expires: 07/16/2025Start: 06-16-2025 End: 71-50-0335QW Chest for screening WO contrastCT lung screening low dose Imaging Routine Encounter for screening for lung cancer Expected: 06/16/2025 (Approximate), Expires: 09/16/2025[facility] Work Phone: Comment on above:Expected: 06/16/2025 (Approximate), Expires: 09/16/2025Start: 38-05-1357Wqlmuqfezh A1c measurementDiabetes: Hemoglobin Z9FGNHK HealthcareStart: 64-24-2024OWQBS-19 Vaccine ( season)COVID-19 Vaccine ( season)[facility] HealthcareStart: 04-12-2025 Influenza vaccinationInfluenza Vaccine (#1)[facility]Start: 04-02-2025 End: 53-21-4085QX Abdomen and Pelvis WO contrastCT abdomen pelvis wo IV contrast Imaging STAT Right flank pain History of renal calculi Expected: 04/02/2025 (Approximate), Expires: 07/03/2025[facility] Work Phone: Comment on above:Expected: 04/02/2025 (Approximate), Expires: 07/03/2025Start: 03-19-2025 End: 70-84-3680Tuqvvbz encounter jogmnyhmk97/08/2025 10:15 AM EDT Office Visit [facility] [address] [id number] Ti Ochoa DO [address] [address] [facility] Surgical AssociatesStart: 03-10-2025 [facility]: 02-23-2025 End: 29-34-3019Ambzrte encounter procedureNOKAISER PERMANENTE [facility] IMComment on above:Arrived Start: 02-22-2025 End: 56-39-1087Gqtfiaczqrxcx metabolic 2000 panel - Serum or PlasmaComprehensive metabolic panel Lab Routine Type 2 diabetes mellitus with other specified complication, without long-term current use of insulin ([facility]/HCC) Primary hypertension (CMS/HCC) Expected: 02/22/2025, Expires: 08/25/2025[facility] Comment on above:Expected: 02/22/2025, Expires: 08/25/2025Start: 02-22-2025 End: 58-03-3495Ewnhlbjcot a1c with eagHemoglobin a1c with eag Lab Routine Type 2 diabetes mellitus with other specified complication, without long-term current use of insulin (CMS/HCC) Expected: 02/22/2025, Expires: 08/25/2025NOAK HealthcareComment on above:Expected: 02/22/2025, Expires: 08/25/2025Start: 02-22-2025 End: 82-48-3342JZVMNGIT CBC WITHOUT DIFF ([facility])HEMOGRAM CBC WITHOUT DIFF ([facility]) Lab Routine Thrombocytopenia ([facility]/HCC) Expected: 02/22/2025 (Approximate), Expires: 08/25/2025[facility] Work Phone: Comment on above:Expected: 02/22/2025 (Approximate), Expires: 08/25/2025Start: 02-22-2025 End: 59-12-9835Ebwqr 1996 panel - Serum or PlasmaLipid panel Lab Routine Mixed hyperlipidemia ([facility]/HCC) Expected: 02/22/2025, Expires: 08/25/2025[facility] HealthcareComment on above:Expected: 02/22/2025, Expires: 08/25/2025Start: 02-22-2025 End: 42-61-7181Ejjvghasvysb/Creatinine panel in random UrineMicroalbumin / creatinine urine ratio Lab Routine Type 2 diabetes mellitus with other specified complication, without long-term current use of insulin ([facility]) Primary hypertension ([facility]) Expected: 02/22/2025, Expires: 08/25/2025[facility] Comment on above:Expected: 02/22/2025, Expires: 08/25/2025Start: 02-22-2025 End: 84-92-6797Ushayuwq specific Ag [Mass/volume] in Serum or PlasmaPSA Lab Routine Prostate cancer screening Expected: 02/22/2025, Expires: 08/25/2025[facility] HospitalComment on above:Expected: 02/22/2025, Expires: 08/25/2025Start: 53-08-0676Mbizl screening for proteinDiabetes: Urine Protein ScreeningMOUNTAIN POINT [facility] HealthcareStart: 13-85-4942Btdflygufj A1c measurementDiabetes: Hemoglobin A1C [facility] HealthcareStart: 11-12-2024 End: 57-80-9675Igkjnmy encounter ngysfpbmc58/03/2025 8:45 AM EDT Office Visit [facility] [address] [place] [address] Chris Pierre DO [address] [place] [address] [facility] IMComment on above:ArrivedStart: 09-17-2024 End: 71-82-2851Ttemsof encounter ublixtkvc91/06/2025 1:45 PM EST Office Visit [facility] [address] [place] [address] Chris Pierre, [address] [place] [address] ArrivedENCOM[facility] IMComment on above:ArrivedStart: 09-01-2024 End: 10-60-8327UiusmpydwEast [facility] Regional Hospitaltart: 08-25-2024 End: 15-89-6336Nrlnvzz encounter procedureNOKAISER PERMANENTE MEDICAL CENTER IMComment on above:Medicare annual wellness visit, subsequent (Primary Dx); ACP (advance care planning); Type 2 diabetes mellitus with other specified complication ([facility])Start: 08-19-2024 End: 88-62-5118Uqwtkcf encounter nrqriwwpk74/08/2025 10:30 AM EST Office Visit [facility] [address] [place] [address] Chris Pierre, [address] [place] [address] [facility] IMStart: 11-67-0699QhgqseszmCinc[facility] Start: 08-18-2024 End: 05-55-1569Xnehnia encounter rryslyuuw76/07/2025 10:15 AM EST Office Visit [facility] [address] [place] [address] Chris Pierre, [address] [place] [address] [facility] IMStart: 01-03-2025Medicare Annual Wellness (AWV) Medicare Annual Wellness (AWV)[facility] HealthcareStart: 44-43-0588Joefdzoenn A1c measurementDiabetes: Hemoglobin C7NIKME HealthcareStart: 21-03-6051Jizrtmt referralOhiohealth [facility] Work Phone: Start: 07-29-2024 End: 00-47-5838Wrqmits encounter /18/2024 9:45 AM EST Office Visit [facility] [address] [place] [address] Chris Pierre, DO [address] [address] [place] [address] [facility]NOKAIS[facility] IMComment on above:ArrivedStart: 06-19-2024 [facility]: 05-12-2024 End: 66-12-5379Hpenbebrgrmq / ancillary services vgcuoainbs40/01/2024 9:45 AM EDT Ancillary Procedure [facility] [address] [place] [id number] ArrivedNOKAISER [facility] XRAYComment on above:ArrivedStart: 05-12-2024 End: 60-51-6725Vapobdc encounter myaswveou98/01/2024 8:45 AM EDT Office Visit [facility] IM [address] [place] [id number] Chris Pierre, DO [address] [place] [address] [facility]rivedEN[facility] IMComment on above:ArrivedStart: 05-06-2024 Hemoglobin A1c measurementDiabetes: Hemoglobin D3QTRIC HealthcareStart: 02-12-2024 End: 97-96-3487Qnbgoet encounter blcibjyir65/03/2024 10:30 AM EDT Office Visit [facility] [address] [place] [address] Chris Pierre, DO [address] [place] [address] [facility] IMStart: 63-42-8696Gisch screening for protein Diabetes: Urine Protein ScreeningNOAK HealthcareStart: 13-82-9761Jajuqhprxv A1c measurementDiabetes: Hemoglobin H7BPXBTPershing Memorial HospitalStart: 70-93-6261Iheew chest X-rayXR chest 2V*[facility] Hospitaltart: 40-50-9285TH Chest 2 ViewsEast [facility] Regional Hospitaltart: 51-07-0957QYX, Provider: hSanthi Lancaster, Status: Pen, Time: 1:00 PMFUV, Provider: Shanthi Lancaster, Status: Pen, Time: 1:00 PMMP-[facility] 250 DO Work Phone: Start: 53-47-9394ZodgildzwCincinnati Shriners Hospital Start: 76-11-8742GXK, Provider: Shanthi Lancaster, Status: Pen, Time: 1:45 PMFUV, Provider: Shanthi Lancaster, Status: Pen, Time: 1:45 PMMP-[facility] 250 DO Work Phone: Start: 79-93-3343BUQ, Provider: Shanthi Lancaster, Status: Pen, Time: 1:15 PMFUV, Provider: Shanthi Lancaster, Status: Pen, Time: 1:15 PMMP- [facility] 250 DO Work Phone: Start: 34-49-2949TEMDRI NUC, Provider: [place] [facility] NUCLEAR 01,[id number], Status: Pen, Time: 12:30 PMSTRESS NUC, Provider: [place] [facility] NUCLEAR 01,[id number], Status: Pen, Time: 12:30 PMMP-[facility] 250 DO Work Phone: Start: 81-64-9283BKC, Provider: Shanthi Lancaster, Status: Pen, Time: 11:30 AMFUV, Provider: Shanthi Lancaster, Status: Pen, Time: 11:30 AM [facility] Work Phone: Start: 20-83-3055JCN, Provider: Shanthi Lancaster, Status: Pen, Time: 1:30 PMFUV, Provider: Shanthi Lancaster, Status: Pen, Time: 1:30 PMMP- [facility] 250 DO Work Phone: Start: 54-03-5757PMY, Provider: Shanthi Lancaster, Status: Pen, Time: 11:00 AMFUV, Provider: Shanthi Lancaster, Status: Pen, Time: 11:00 AM- [facility] 250 DO Work Phone: Start: 97-56-3082NWE, Provider: Shanthi Lancaster, Status: Pen, Time: 11:45 AMFUV, Provider: Shanthi Lancaster, Status: Pen, Time: 11:45 AMMP- [facility] 250 DO Work Phone: Start: 08-90-4577VxavgldojCincinnati Shriners Hospital Start: 80-07-9432QHOBNCX DIRECTIVE DISCUSSIONADVANCE DIRECTIVE DISCUSSION [facility]tart: 19-31-9660QRWYFAQUNH ASSESSMENTDEPRESSION ASSESSMENT [facility] Hospitaltart: 44-61-2531Zaxcaeabu vaccinationINFLUENZA (#1)[facility] Hospitaltart: 90-73-2362YQV, Provider: Eduardo Brock, Status: Pen, Time: 10:45 AMFUV, Provider: Eduardo [place], Status: Pen, Time: 10:45 AM-[facility] [place] 250 DO Work Phone: Start: 89-08-8892WMTOHX NUC, Provider: [place] [facility] NUCLEAR 01,[id number], Status: Pen, Time: 12:00 PMSTRESS NUC, Provider: [place] [facility] NUCLEAR 01,[id number], Status: Pen, Time: 12:00 PMMP-[facility]- [place] 600 DO Work Phone: Start: 25-35-0514OSQYANE DIRECTIVE DISCUSSIONADVANCE DIRECTIVE DISCUSSIONC[facility] Clinic [facility] Hospitaltart: 31-04-8995KUALALRKZV ASSESSMENT DEPRESSION ASSESSMENTC[facility] Clinic [facility] Hospitaltart: 27-92-6336Swytofblszye Vaccine: 65+ Years (2 of 2 - PCV)Pneumococcal Vaccine: 65+ Years (2 of 2 - PCV)[facility] HealthcareStart: 34-46-3632DYTKRZTKKZOV: 65+ (1 - PCV)PNEUMOCOCCAL: 65+ (1 - PCV)[facility] Hospitaltart: 93-04-0924VBATLEKB VACCINE (1 of 2)SHINGRIX VACCINE (1 of 2)[facility]tart: 45-57-0854APDQVWLG SCREENDIABETES SCREENCleveland Clinic [facility] Hospitaltart: 65-10-8408Ukxlv microalbumin profileDTAP,TDAP,TD (1 - Tdap) [facility] Hospitaltart: 30-89-9337KOONMP PCP TEAM CHRONIC DISEASE VISITANNUAL PCP TEAM CHRONIC DISEASE VISITCleveland Clinic [facility] Hospitaltart: 85-48-1333IA CONTROLLED (<130/80)BP CONTROLLED (<130/80)[facility] Hospitaltart: 23-19-0840Gfkcwgsxq B surface antibody levelLDL CHOLESTEROLC[facility] Clinic [facility] Hospitaltart: 41-54-1116YJHHMLRFB C SCREENINGHEPATITIS C SCREENINGC[facility] Clinic [facility] Hospitaltart: 76-28-4554YXCPUMZCRX SPIROMETRYC[facility] Clinic [facility] Hospitaltart: 88-92-1890Wdfzbpzy screeningDiabetes: Retinopathy ScreeningMOUNTAIN [facility] HealthcareStart: 86-03-2743Qdbvxmlzvmpz Vaccine: 65+ Years (1 - PCV)Pneumococcal Vaccine: 65+ Years (1 - PCV)[facility] HealthcareStart: 68-76-9126DISMPFFRUCCT: 65+ (1 - PCV)PNEUMOCOCCAL: 65+ (1 - PCV)[facility] Start: 1946Medicare Annual Wellness (AWV)Medicare Annual Wellness (AWV) [facility] HealthcareBRONCHITIS(HTRX)BRONCHITIS(HTRX) Lab Routine Acute cough Lower respiratory infection Shortness of breath Ordered: 04/27/2025[facility] [employer] Work Phone: Comment on above:Ordered: 5Calcium [Mass/time] in 24 hour UrineCincinnati Shriners HospitalCalcium [Mass/volume] in 24 hour UrineCincinnati Shriners HospitalComprehensive metabolic 2000 panel - Serum or PlasmaComprehensive metabolic panel Lab Routine 08/18/2024 10:[address] [facility] [email or web address] Work Phone: ECG 12 leadECG 12 lead ECG Routine Primary hypertension (CMS/HCC) 05/12/2024 9:41 AM [facility] Work Phone: Lipid 1996 panel - Serum or PlasmaLipid panel Lab Routine 08/18/2024 10:42 AM [facility] ServicesMagnesium [Mass/time] in 24 hour UrineCincinnati Shriners HospitalMagnesium [Mass/volume] in [facility] CenterOxalate [Mass/time] in 24 hour [facility] Medical CenterPatient EducationUc Health Ctr Work Phone: Patient referralUc Health Ctr Work Phone: Phosphate [Mass/time] in 24 hour [facility] CenterPhosphate [Mass/volume] in [facility] Medical CenterUrate [Mass/time] in 24 hour [facility] CenterUrate [Mass/volume] in [facility] Medical CenterUrinalysis complete panel - UrineUrinalysis with microscopic Lab Routine 08/18/2024 10:42 AM [facility] Work Phone: XR Lumbar spine 2 or 3 ViewsXR lumbar spine 2 or 3 views Imaging Routine Lumbosacral pain 09/17/2024 3:08 PM [facility] ServicesXR Sacrum and Coccyx 2 ViewsXR sacrum coccyx 2+ views Imaging Routine Lumbosacral pain 09/17/2024 3:08 PM [facility] ServicesXR Shoulder - right 2 ViewsXR shoulder 2+ views right Imaging Routine Chronic right shoulder pain 09/17/2024 3:08 PM [facility] Work Phone: [facility] Immunizations Immunization DateImmunizationNotesCare FkbbhdqaFexlpbee24-31-3538Vkjddyyonsqn Conjugate PCV 20Michele Tessa FLANGER Work Phone: [facility] HospitalNbgzlyuoiz72-55-1448eqsoguyat virus vaccine, unspecified formulationPaknox county hospitalnelda SMALL [facility]09-24-2024Seasonal trivalent influenza vaccine, adjuvanted, preservative freeChris Pierre DO Work Phone: [facility] HospitalXoyfrudtjk71-63-2733UJXTY-35 (PFIZER) 12Y and olderChris Pierre DO Work Phone: [facility]10-27-2023Pfizer Purple Cap SARS-CoV-2 VaccinationMicmorenita Zarate FLANGER Work Phone: NOBarnes-Jewish HospitalOsakdulych72-01-8374Okovb Quadrivalent 0.5 ML Intramuscular Prefilled SyringeChris Pierre Work Phone: [phone]-DfwmaCook Hospital 250 DO Work Phone: [phone] virus vaccine, unspecified formulationPaConclusive Analytics [facility]09-18-2023influenza, seasonal, injectableJetiffanie Pierre Work Phone: [phone]-ZgzqhCook Hospital 250 DO Work Phone: Comment on above:Series:64-67-0930chsfaxozn virus vaccine, unspecified formulationPaConclusive Analytics [facility]09-30-2022influenza, high dose seasonal, preservative-freeChris Pierre Work Phone: [phone]-DasgzCook Hospital 250 DO Work Phone: [phone] COVID-19 Vac Bivalent 30 MCG/0.3ML Intramuscular SuspensionChris Hinson Ignacio Work Phone: [facility]05-14-2022Comirnaty 30 MCG/0.3ML Intramuscular SuspensionCynergenmyke iHnson Skimbl Work Phone: [facility]05-14-2022SARS-CoV-2 mRNA (kmghihiilod-wazq-xquujti) vaccinePaConclusive Analytics [facility]10-08-2021Pfizer-BioNTech COVID-19 Vacc 30 MCG/0.3ML Intramuscular SuspensionChris Hinson Ignacio Work Phone: [facility] on above:Result Comment: 2023-06-10: [id number] Quadrivalent 0.5 ML Intramuscular Prefilled SyringeChris Hinson Ignacio Work Phone: [phone]-[facility] 250 DO Work Phone: [phone]42xmajxctlu virus vaccine, unspecified formulationRacktivity [facility]02-26-2021Pfizer-BioNTech COVID-19 Vacc 30 MCG/0.3ML Intramuscular SuspensionChris Hinson Ignacio Work Phone: [facility] on above:Result Comment: 2023-06-10: [id number]-WoM-5 (COVID-19) mRNA BNT-162b2 vaxRacktivity [facility]02-06-2021Pfizer-BioNTech COVID-19 Vacc 30 MCG/0.3ML Intramuscular SuspensionElioamarilismyke Joya Skimbl Work Phone: [facility] on above:Result Comment: 2023-06-10: [id number] virus vaccine, unspecified formulationChris Hinson Ignacio Work Phone: [facility]09-16-2020influenza virus vaccine, unspecified formulationRacktivity [facility]09-16-2020influenza, injectable, quadrivalent, preservative freeChris Mccauleyman Work Phone: [phone]-[place]vvlgD[place] [address] DO Work Phone: [phone] intramuscular injectionPatriciosil Energy [facility]05-13-2020zoster vaccine recombinantElioffrey A Skimbl Work Phone: [facility]ue03-04-2020zoster vaccine recombinantElioffrey A Skimbl Work Phone: [facility]ue11-01-2019influenza virus vaccine, unspecified formulationElioamarilisrey A Skimbl Work Phone: [phone]-CznmcD[place] [address] DO Work Phone: [phone] virus vaccine, unspecified formulationPaConclusive Analytics [facility]09-12-2019Seasonal trivalent influenza vaccine, adjuvanted, preservative freeChris A Skimbl Work Phone: [phone]-IqczoD[place] [address] DO Work Phone: [phone] virus vaccine, unspecified formulationDonavanrey A Skimbl Work Phone: [phone]-UslysD[place] [address] DO Work Phone: [phone] virus vaccine, unspecified formulationPaConclusive Analytics [facility]ue10-04-2018influenza, high dose seasonal, preservative-freeDonavanrey A Ignacio Work Phone: [phone]-MizdmD[place] [address] DO Work Phone: [phone]) [phone] virus vaccine, unspecified formulationChris A Skimbl Work Phone: [phone]-WlfhrD[place] [address] DO Work Phone: [phone] virus vaccine, unspecified formulationPaConclusive Analytics [facility]09-26-2017influenza, injectable, quadrivalent, preservative freeChris A Skimbl Work Phone: [phone]-MslypD[place] [address] DO Work Phone: [phone] virus vaccine, unspecified formulationPaConclusive Analytics [facility]09-22-2016influenza virus vaccine, unspecified formulationEliotiffanie A Skimbl Work Phone: [phone]-SasmiD[place] [address] DO Work Phone: [phone]id virus vaccine, unspecified formulationPaConclusive Analytics [facility]10-12-2015influenza, high dose seasonal, preservative-freeChris A Skimbl Work Phone: [phone]-QmxfdD[place] [address] DO Work Phone: [phone]qtp virus vaccine, unspecified formulationChris Hinson Skimbl Work Phone: [phone]-QzjcdD[place] [address] DO Work Phone: [phone]gqnz polysaccharide vaccine, 23 valentJetiffanie A Skimbl Work Phone: [phone]-HwycbD[place] [address] DO Work Phone: [phone]ndag virus vaccine, whole virusChris Hinson Skimbl Work Phone: [phone]-WdtpmD[place] [address] DO Work Phone: [phone]qtrntuh polysaccharide vaccine, 23 valentChris Pierre Work Phone: [phone]-GrqozStephanie [place] [address] DO Work Phone: [phone]bjzn virus vaccine, whole virusChris Pierre Work Phone: [phone]-HrvtcD[place] [address] DO Work Phone: [phone]lb vaccine, liveChris Pierre Work Phone: [facility]11-16-2009novel wvknnhigk-P2A8-82, preservative-free, injectableChris Pierre Work Phone: [phone]-NrcanD[place] [address] DO Work Phone: [phone]ndluxaao polysaccharide vaccine, 23 valentChris Pierre Work Phone: [phone]-XpxxiD[place] [address] DO Work Phone: influenza virus vaccine, unspecified formulation Chris Pierre Work Phone: [phone]-VzqazD[place] [address] DO Work Phone: Comment on above:May 2012 Payers DatePayer CategoryPayerPolicy [id number]-[id number] 2023Medicare (Managed Care)[employer] MEDICARE [id number] Health [id number] 2022Medicare [id number] Health Insurance [id number] [id number] [id number] 2.840.1.069615.3.57[id number] 2.840.1.286135.3.579.2.40118-52-9548Abfmgky3819887 2.840.1.177558.3.57[id number] 2.840.1.842083.3.579.2.76071-71-4934Hjfaonq264672377 2.840.1.421289.3.57[id number] 2.840.1.123387.3.579.2.94584-01-3712Eanymwi239743218 2.840.1.379808.3.57[id number] 2.840.1.425857.3.579.2.08589-79-8579Qrptvbf925569190 2.840.1.171926.3.579.2.25745-99-9442Alzypud901067596 2.16840.1.488668.3.579.2.30128-55-5429Jdclewf13762619 2.840.1.750650.3.579.2.936860-79-9641Cmuuxbq06500199 2.16840.1.568045.3.579.2.337982-96-8242Rpmkzxe51148724 2.16840.1.678427.3.579.2.26422-94-1504Awrjccw68382045 2.840.1.729685.3.579.2.06864-25-7437Nucxfsk73064766 2.840.1.408227.3.579.2.71662-84-6660Pufvowg07624424 2.0.1.712213.3.579.2.15104-04-0415Zswzywu88694453 2.840.1.903622.3.579.2.082520-03-6521Pwzsxnp02362493 2.840.1.804546.3.579.2.49539-76-0214Uyleebz11952235 2.840.1.422998.3.579.2.72957-53-3681Dlkoczy50386731 2.840.1.829087.3.579.2.60854-66-6702Prdraok80282775 2.840.1.545115.3.579.2.18766-36-7155Gpmgtog09336697 2.840.1.677062.3.579.2.87914-76-3239Qwwmcmk12911583 2.840.1.152688.3.579.2.738034-57-4161Yrdfwhv25598839 2.16840.1.920700.3.579.2.938827-51-8695Wsxyfdy15981339 2.840.1.626643.3.579.2.509383-72-1387Ujjxbhn89626179 2.16840.1.096186.3.579.2.733379-71-3622Zqwagqo43746518 2.16840.1.042106.3.579.2.690649-76-4936Ehvrnxc03802659 2.16840.1.109164.3.579.2.706821-07-7002Npzxrdx58948685 2.16840.1.375811.3.579.2.148724-21-2888Jknmqvj75896167 2.0.1.501732.3.579.2.874762-12-7367Zuccdvs89884422 2.0.1.885691.3.579.2.925986-09-4428Addsizo7573512 2.0.1.206917.3.579.2.244268-44-7148Ypsvxkd2367215 2.0.1.021223.3.579.2.200660-12-8557Dcffiml1328257 2.840.1.024345.3.579.2.836286-65-4858Uybgvya5849643 2.0.1.416733.3.579.2.484810-59-6675Yuwzjgr6190923 2.840.1.426676.3.579.2.957047-61-2043Zughsjf8243522 2.16840.1.827744.3.57[id number] 24839h21-u61e-0yt6-06u0-9c97a9q2lhe4Vtcvczn82166913 2.16.840.1.956171.3.579.2.095Nuefnrn97804221 2.16.840.1.081027.3.579.2.531 Rxwehbg89164652 2.16.840.1.897981.3.579.2.137Hqywghp41641226 2.16.840.1.204943.3.579.2.228Jpfffbm86261832 2.16.840.1.711239.3.579.2.531 Txvmjms80097975 2.16.840.1.963771.3.579.2.152Qsrcfdx57551282 2.16.840.1.364213.3.579.2.918Eqkhcsf87476995 2.16.840.1.140174.3.579.2.531 Pfsoyhl91761474 2.16.840.1.524999.3.579.2.070Ogjkabx27255875 2.16.840.1.553853.3.579.2.531 Social History DateTypeDetailFacilityStart: 08-14-2023 End: 85-13-3808Hsjou alcohol useDaily alcohol useCook Hospital 250 DO Work Phone: Comment on above:2 drinks daily;quit 1971;Start: 06-29-2019 End: 99-70-7236Ugpbvhb smoking statusNever smoked tobacco (finding)[facility] start: 67-27-3815Rdsdvwc smoking statusNeverExec[facility] of [facility] start: 09-18-2023 End: 68-98-4561Wao Assigned At BirthMaleExec[facility]rology of [facility] start: 09-23-2017 End: 25-40-6063Sltuoux smoking status NHISEx-smoker (finding)[facility]: 91-29-0987Rnk [facility] 06-01[facility]2022 End: 88-86-5436Riwmuel use and exposureSmokeless tobacco non-userC[facility] Clinic [facility] Hospitaltart: 06-01-2022 End: 67-07-7823Ypoitoz intakeCurrent drinker of alcohol (finding)[facility] Hospitaltart: 94-61-8015Dap Assigned At BirthNot on fileCleveland Clinic [facility] Hospitaltart: 08-12-1953 End: 76-31-3802Awswkio of tobacco useCurrent smokerNOMS HealthcareStart: 08-12-1954 End: 97-55-9326Ecgamuu of tobacco useCigarette SmokerNOMS HealthcareHow often to you have a drink containing alcohol?4 or more times a weekNOMS HealthcareHow many standard drinks containing alcohol do you have on a typical day?1 or 2NOMS HealthcareHow often do you have 6 or more drinks on 1 occasion?NeverNOMS HealthcareStart: 17-30-5085Riamekw CommentCaffeine: iced tea occasionallyNOMS HealthcareStart: 06-20-2024 End: 22-33-1511EheXvea (finding)[facility] HospitalNEGATED: Highlighted rowStart: NINFHistory of tobacco usePassive smokerNOMS Healthcare Goals DatePatient GoalDesired Activity/State Functional Status VchkMfqrovmvcqNswmhlGiigoeap33-36-2204Bcjorqrtsq StatusN/AExec[facility] of [facility]08-21-2024Functional StatusN/A[facility]08-15-2024Functional StatusN/A [facility]10-30-2023Functional StatusN/A[facility]09-12-2022Functional StatusN/A[facility] Clinical Notes 07-12-2012 to 06-16-2025 Note Date & ZmcvCyauFxuotyke75-95-8820 History of Present illness Narrative* Spencer Zarate, FLANGER - 06/16/2025 4:00 PM EST Images from the original note were not included. Jessenia Pyle is a 80 y.o. male presents with chief complaint of Back Pain (Continued right sidedback pain (side). Xray done 04/27 for back pain. Pt thought it mightve been a kidney stone but xraycame back normal. ) HPI: History of Present Illness The patient is a 80-year-old male who presents today with back pain. Back Pain He reports experiencing intermittent back pain, which he initially attributed to kidney stones. Thepain is localized to the right side and does not radiate down his legs. It is exacerbated by twisting or turning movements but does not interfere with his ability to walk. He rates the pain as a 7 or8 on a scale of 0 to 10. He has no history of back problems and does not recall if he has previously been prescribed steroids for this issue. He occasionally experiences back pain upon waking, which can be alleviated by changing positions in bed. - Onset: Intermittent, occasionally upon waking. - Location: Right side of the back. - Character: Localized pain, does not radiate down legs. - Alleviating/Aggravating Factors: Exacerbated by twisting or turning movements; alleviated by changing positions in bed. - Severity: Rates pain as 7 or 8 on a scale of 0 to 10. Lightheadedness He also reports occasional lightheadedness in the early afternoon, which resolves after approximately an hour. He maintains good hydration and experiences shortness of breath, the cause of which remains undetermined. - Onset: Occasional, in the early afternoon. - Duration: Resolves after approximately an hour. Kidney Stones He has a history of kidney stones, typically presenting on the right side, and was informed by Dr. Ansari's office that his condition was stable following a CT scan in 03/2025. He reports no fevers, chills, or sweats. He has a history of sepsis secondary to kidney stones, which required surgical intervention. He is currently on Crestor and takes his blood pressure medication at night. Social History: Alcohol: He quit drinking alcohol but may have a beer once or twice a month. Tobacco: He smoked cigarettes but quit approximately 50 years ago. PAST SURGICAL HISTORY: Surgical intervention for kidney stones. FAMILY HISTORY His brother of lung cancer at the age of 64. I have reviewed and reconciled the history and medication list with the patient today. HISTORIES: PAST MEDICAL HISTORY: Medical History[1] SURGICAL HISTORY: Surgical History[2] SOCIAL HISTORY: Social History[3] Depression: Not at risk (08/18/2024) PHQ-2 PHQ-2 Score: 0 FAMILY HISTORY: Family History[4] MEDICATIONS: Current Outpatient Medications Medication Instructions albuterol HFA 90 mcg/act inhaler INHALE 2 INHALATIONS BY MOUTH EVERY 4 HOURS IF NEEDED FOR WHEEZING aspirin 81 mg, Every 24 hours doxazosin (CARDURA) 4 mg, Oral, Nightly ezetimibe (ZETIA) 10 mg, Oral, Nightly Multiple Vitamins-Minerals (CENTRUM ADULTS PO) Take by mouth potassium citrate CR (Urocit-K-15) 15 mEq ER tablet 15 mEq, Oral, 2 times daily with meals rosuvastatin (CRESTOR) 40 mg, Oral, Nightly Semaglutide (2 MG/DOSE) 2 mg, Subcutaneous, Weekly tamsulosin (FLOMAX) 0.4 mg, Oral, Nightly valsartan (DIOVAN) 160 mg, Oral, Nightly ALLERGIES: Allergies[5] PHYSICAL EXAM: Visit Vitals BP 122/86 Pulse 81 Ht 6' 2 Wt 212 lb SpO2 97% BMI 27.22 kg/m Smoking Status Former BSA 2.24 m BP Readings from Last 3 Encounters: 06/16/25 122/86 04/21/25 134/78 04/02/25 134/78 Wt Readings from Last 3 Encounters: 06/16/25 212 lb 02/26/25 212 lb 02/23/25 212 lb Physical Exam HENT: Head: Normocephalic. Cardiovascular: Rate and Rhythm: Regular rhythm. Heart sounds: Normal heart sounds. Pulmonary: Breath sounds: Normal breath sounds. Abdominal: Palpations: Abdomen is soft. Musculoskeletal: Back: Comments: Point tenderness right lateral Skin: General: Skin is warm and dry. Neurological: Mental Status: He is oriented to person, place, and time. Psychiatric: Mood and Affect: Mood normal. Thought Content: Thought content normal. Judgment: Judgment normal. Results Labs - A1c: 02/2025, 5.6% Imaging - CAT scan of the abdomen: 03/2025, No obstructing urinary tract calculi, hydronephrosis, tiny nonobstructing calculus of the inferior pole of the right kidney, arthritis of L4-L5, enlarged prostate,small bilateral fat-containing inguinal hernias, no bowel obstruction, appendix within normal limits, hepatic steatosis, normal pancreas and gallbladder, and a 9 mm nodule on the adrenal gland likelya benign adenoma. - Chest x-ray: 04/2025, Chronic elevation of hemidiaphragm. - X-ray of the back: Anterior spurring and mild disk space narrowing of L2-L3. ASSESSMENT AND PLAN: Assessment & Plan 1. Back pain: Chronic. - Referral for physical therapy to address the back pain. - If physical therapy does not alleviate symptoms, an MRI will be considered. 2. Fatty liver (hepatic steatosis): - FIB-4 score elevated at 3.02. - Additional blood tests to assess liver function and complete blood count (CBC). - Recalculate FIB-4 score. - If score remains high, perform liver ultrasound to evaluate for scarring. 3. Adrenal adenoma: Likely benign. - 9 mm nodule noted with 6 Hounsfield units. - No immediate intervention required unless nodule grows larger than 10 mm. - If blood pressure becomes uncontrolled, order special urine tests and metanephrines. 4. Kidney stones: - Tiny nonobstructing calculus of the inferior pole of the right kidney noted. - No obstructing urinary tract calculi or hydronephrosis present. - No immediate intervention required. 5. Blood pressure management: - Blood pressure well-controlled at 122/86 mmHg. - Continue current medication regimen. 6. Health maintenance: - Schedule low-dose CT scan of the chest to follow up on lung health due to family history of lung cancer and previous smoking history. Follow-up - Follow up in [address] Loving was present in office suite today and is supervising patient care and available for consult. I'm following his plan of care for the above problems. Previous notes and plan were reviewed and followed. [1] Past Medical History: Diagnosis Date Bronchitis CAD (coronary artery disease) Herpes simplex without mention of complication History of medical problems ulcers Hyperlipidemia Hypertension Kidney stones Measles Migraines Migraine, unspecified without mention of intractable migraine without mention of status migrainosus Mumps Osteoarthritis Pneumonia Thrombocytopenia Type II diabetes mellitus (HCC) [2] Past Surgical History: Procedure Laterality Date CARDIAC CATHETERIZATION 07/24/2012 COLONOSCOPY [address] Plasencia LITHOTRIPSY 2020 OTHER SURGICAL HISTORY 03/10/2025 Exc. Lt. shoulder lipoma CO ARTHROSCOPY KNEE DIAGNOSTIC W/WO SYNOVIAL BX SPX 10/02/2019 Rt Knee Arthroscopy - MTP TONSILLECTOMY VASECTOMY [3] Social History Tobacco Use Smoking status: Former Current packs/day: 0.00 Average packs/day: 0.3 packs/day for 15.0 years (3.8 ttl pk-yrs) Types: Cigarettes Start date: 08/12/1954 Quit date: 08/12/1969 Years since quittin.8 Passive exposure: Never Smokeless tobacco: Never Substance Use Topics Alcohol use: Yes Alcohol/week: 4.0 - 8.0 standard drinks of alcohol Types: 4 - 8 Standard drinks or equivalent per week Comment: Caffeine: iced tea occasionally Drug use: Never [4] Family History Problem Relation Name Age of Onset Heart disease Mother Mom Hypertension Mother Mom Stroke Mother Mom Cancer Mother Mom Hypertension Father Dad Heart disease Father Dad Breast cancer Neg Hx Colon cancer Neg Hx Ovarian cancer Neg Hx Pancreatic cancer Neg Hx [5] Allergies Allergen Reactions Atorvastatin Unknown Other Reaction(s): Muscle pain, Myalgia Cerivastatin Other Reaction(s): Muscle pain, Myalgia, Unknown, Unknown Colesevelam Other Reaction(s): Unknown, Unknown, Unknown Ezetimibe Other Reaction(s): Muscle pain, Myalgia, Unknown, Unknown Other Reaction(s): Myalgia Fluvastatin Other Reaction(s): Muscle pain, Myalgia, Unknown, Unknown Lisinopril Cough Losartan Cough Metaxalone Unknown Simvastatin Other Reaction(s): Muscle pain, Myalgia, Unknown, Unknown documented in this encounterPershing Memorial [id number] History of Present illness Narrative* Mary Hedrick NP - 04/27/2025 2:30 PM EDT Images from the original note were not included. Subjective Patient ID: Jessenia Pyle (: 1945) is a 80 y.o. male who presents for Illness. HPI History of Present Illness The patient presents for evaluation of a cough. Patient was seen one week ago for illness. He was prescribed Augmentin, prednisone and codeine cough syrup. He states today he feels. Worse. He reports severe coughing, particularly at night, which has been causing difficulty in breathing. He also mentions a sensation of needing to cough up something but is unable to do so. He suspects he had a fever last night as he woke up with a wet shirt collar. He has been using an albuterol inhaler every 4 hours without any relief. He has been taking codeine at night, which has provided some relief. He has been taking Augmentin, Robitussin, and prednisone since 04/21/2025. He has a history of pneumonia from several years ago. Current Outpatient Medications Medication Instructions albuterol HFA 90 mcg/act inhaler INHALE 2 INHALATIONS BY MOUTH EVERY 4 HOURS IF NEEDED FOR WHEEZING amoxicillin-clavulanate (Augmentin) 875-125 MG tablet 875 mg, Oral, 2 times daily aspirin 81 mg, Every 24 hours doxazosin (CARDURA) 4 mg, Oral, Nightly doxycycline (VIBRAMYCIN) 100 mg, Oral, 2 times daily, Take with at least 8 ounces (large glass) of water, do not lie down for 30 minutes after ezetimibe (ZETIA) 10 mg, Oral, Nightly guaiFENesin-codeine (Robitussin-AC) 100-10 MG/5ML syrup 5-10 mL, Oral, 3 times daily PRN Multiple Vitamins-Minerals (CENTRUM ADULTS PO) Take by mouth potassium citrate CR (Urocit-K-15) 15 mEq ER tablet 15 mEq, Oral, 2 times daily with meals predniSONE (Deltasone) 10 MG tablet Take 4 tablets (40 mg) by mouth Daily for 3 days, THEN 3 tablets (30 mg) Daily for 3 days, THEN 2 tablets (20 mg) Daily for 3 days, THEN 1 tablet (10 mg) Daily for3 days. rosuvastatin (CRESTOR) 40 mg, Oral, Nightly Semaglutide (2 MG/DOSE) 2 mg, Subcutaneous, Weekly tamsulosin (FLOMAX) 0.4 mg, Oral, Nightly valsartan (DIOVAN) 160 mg, Oral, Nightly Allergies Allergen Reactions Atorvastatin Unknown Other Reaction(s): Muscle pain, Myalgia Cerivastatin Other Reaction(s): Muscle pain, Myalgia, Unknown, Unknown Colesevelam Other Reaction(s): Unknown, Unknown, Unknown Ezetimibe Other Reaction(s): Muscle pain, Myalgia, Unknown, Unknown Other Reaction(s): Myalgia Fluvastatin Other Reaction(s): Muscle pain, Myalgia, Unknown, Unknown Lisinopril Cough Losartan Cough Metaxalone Unknown Simvastatin Other Reaction(s): Muscle pain, Myalgia, Unknown, Unknown Patient Active Problem List Diagnosis BPH (benign prostatic hyperplasia) CAD (coronary artery disease) HTN (hypertension) Mixed hyperlipidemia Thrombocytopenia Type 2 diabetes mellitus, without long-term current use of insulin (HCC) Chronic right shoulder pain Kidney stones Low serum total protein level Blood donor Lipoma Review of Systems Constitutional: Positive for fatigue and fever. Negative for chills. Respiratory: Positive for cough, shortness of breath and wheezing. Cardiovascular: Negative for chest pain and leg swelling. Gastrointestinal: Negative for diarrhea, nausea and vomiting. Neurological: Negative for dizziness, light-headedness and headaches. Objective Vital signs: Pulse 82 Resp 16 SpO2 97% Physical Exam Constitutional: Appearance: He is ill-appearing. HENT: Head: Normocephalic. Right Ear: Tympanic membrane normal. Left Ear: Tympanic membrane normal. Nose: Rhinorrhea present. Mouth/Throat: Mouth: Mucous membranes are moist. Pharynx: Posterior oropharyngeal erythema present. Eyes: Pupils: Pupils are equal, round, and reactive to light. Cardiovascular: Rate and Rhythm: Normal rate and regular rhythm. Pulmonary: Effort: Pulmonary effort is normal. Breath sounds: Wheezing and rhonchi present. Comments: Harsh wet cough noted Musculoskeletal: General: Normal range of motion. Skin: General: Skin is warm and dry. Neurological: Mental Status: He is alert and oriented to person, place, and time. Psychiatric: Mood and Affect: Mood normal. Assessment/Plan Assessment & Plan 1. Cough: - He reports persistent coughing, difficulty breathing, and worsening symptoms despite taking Augmentin, codeine cough syrup and prednisone. - A nasal swab will be performed to test for bacterial and viral infections, including COVID-19 andinfluenza. A stat chest x-ray will be ordered today to rule out pneumonia. - The antibiotic regimen will be switched from Augmentin to doxycycline, to be taken twice daily for 7 days. A higher dose of steroids will be initiated tomorrow, with a tapering schedule over 12 days. If there is no improvement after 5 days of doxycycline and prednisone, a Z-Omid may be considered based on x-ray reading. Problem List Items Addressed This Visit None Visit Diagnoses Acute cough - Primary Relevant Medications doxycycline (Vibramycin) 100 MG capsule predniSONE (Deltasone) 10 MG tablet Other Relevant Orders XR chest 2 views (Completed) BRONCHITIS(HTRX) Lower respiratory infection Relevant Medications doxycycline (Vibramycin) 100 MG capsule predniSONE (Deltasone) 10 MG tablet Other Relevant Orders BRONCHITIS(HTRX) Shortness of breath Relevant Medications doxycycline (Vibramycin) 100 MG capsule predniSONE (Deltasone) 10 MG tablet Other Relevant Orders BRONCHITIS(HTRX) Health Maintenance Topic Date Due Diabetes: Retinopathy Screening Never done Influenza Vaccine (1) 04/12/2025 Diabetes: Hemoglobin A1C 05/19/2025 Medicare Annual Wellness (AWV) 08/25/2025 Diabetes: Urine Protein Screening 02/16/2026 Pneumococcal Vaccine: 65+ Years Completed Immunization History Administered Date(s) Administered Influenza Whole 05/12/2013, 04/12/2014 Influenza, Seasonal, Quadrivalent, Adjuvanted 04/27/2021, 05/01/2023 Influenza, Unspecified 05/23/2015, 05/08/2016, 05/07/2017, 05/15/2018, 04/23/2019, 04/27/2020, 06/10/2020, 04/27/2021, 05/01/2023 Influenza, trivalent, adjuvanted 05/05/2024 Pfizer Cavanaugh Cap SARS-CoV-2 Vaccination 12/23/2021 [facility] Purple Cap SARS-CoV-2 Vaccination 09/17/2020, 10/07/2020, 05/19/2021, 06/07/2023 Pneumococcal Conjugate PCV 20 08/25/2024 Pneumococcal Polysaccharide PPSV23 04/12/2007, 04/12/2014, 04/19/2015 SARS-COV-2 (COVID-19) vaccine, mRNA, spike protein, LNP, PF, bita-sucrose, 30 mcg/0.3 mL 06/07/2023 SARS-COV-2 (COVID-19) vaccine, mRNA, spike protein, LNP, bivalent, preservative free, 30 mcg/0.3 mLdose, bita-sucrose formulation 05/11/2022 Zoster, Recombinant 10/14/2019, 12/23/2019 Zoster, live 07/15/2009 -Patient's chronic conditions have been reviewed in preparation for this appointment. Protocols reviewed and updated. A collaborative plan of care has been created for pt regarding specific health concerns. Any barriers to care have been identified and addressed. Any part of this document that has been added/copied from other documents has been reviewed for accuracy and updated as appropriate at the time of the patient encounter. -Follow up for Next scheduled follow-up. Mary Hedrick NP documented in this encounterPershing Memorial [id number] History of Present illness Narrative* Mary Hedrick NP - 04/21/2025 2:30 PM EDT Images from the original note were not included. Subjective Patient ID: Jessenia Pyle (: 1945) is a 80 y.o. male who presents for Cough. HPI History of Present Illness The patient presents for evaluation of a cough. Symptoms began after visiting his daughter in [place], who was also ill. His condition worsened during the return journey on 04/20/2025, with the onset of a severe cough and a low-grade fever.He reports shortness of breath, body aches, and excessive sleep. The cough is productive, yielding light yellow phlegm. He experienced a sore throat last night and slept from 6:30 PM to 8:30 AM, waking up only once. His voice has been fluctuating, and he occasionally feels discomfort in his left ear. Deep breaths cause pain around his back. His appetite has decreased, although he managed to eat asandwich this morning despite feeling nauseated. He has no known allergies to antibiotics. He has re ceived all available COVID-19 vaccines and is considering another dose this year. He took a hot shower this morning due to feeling cold. Current Outpatient Medications Medication Instructions albuterol HFA 90 mcg/act inhaler INHALE 2 INHALATIONS BY MOUTH EVERY 4 HOURS IF NEEDED FOR WHEEZING amoxicillin-clavulanate (Augmentin) 875-125 MG tablet 875 mg, Oral, 2 times daily aspirin 81 mg, Every 24 hours doxazosin (CARDURA) 4 mg, Oral, Nightly ezetimibe (ZETIA) 10 mg, Oral, Nightly guaiFENesin-codeine (Robitussin-AC) 100-10 MG/5ML syrup 5-10 mL, Oral, 3 times daily PRN Multiple Vitamins-Minerals (CENTRUM ADULTS PO) Take by mouth potassium citrate CR (Urocit-K-15) 15 mEq ER tablet 15 mEq, Oral, 2 times daily with meals predniSONE (Deltasone) 20 MG tablet Take two tablets once a day for 5 days rosuvastatin (CRESTOR) 40 mg, Oral, Nightly Semaglutide (2 MG/DOSE) 2 mg, Subcutaneous, Weekly tamsulosin (FLOMAX) 0.4 mg, Oral, Nightly valsartan (DIOVAN) 160 mg, Oral, Nightly Allergies Allergen Reactions Atorvastatin Unknown Other Reaction(s): Muscle pain, Myalgia Cerivastatin Other Reaction(s): Muscle pain, Myalgia, Unknown, Unknown Colesevelam Other Reaction(s): Unknown, Unknown, Unknown Ezetimibe Other Reaction(s): Muscle pain, Myalgia, Unknown, Unknown Other Reaction(s): Myalgia Fluvastatin Other Reaction(s): Muscle pain, Myalgia, Unknown, Unknown Lisinopril Cough Losartan Cough Metaxalone Unknown Simvastatin Other Reaction(s): Muscle pain, Myalgia, Unknown, Unknown Patient Active Problem List Diagnosis BPH (benign prostatic hyperplasia) CAD (coronary artery disease) HTN (hypertension) Mixed hyperlipidemia Thrombocytopenia Type 2 diabetes mellitus, without long-term current use of insulin (HCC) Chronic right shoulder pain Kidney stones Low serum total protein level Blood donor Lipoma Review of Systems Constitutional: Positive for chills, fatigue and fever. HENT: Positive for sore throat. Respiratory: Positive for cough and shortness of breath. Cardiovascular: Negative for chest pain, palpitations and leg swelling. Gastrointestinal: Negative for diarrhea, nausea and vomiting. Neurological: Negative for dizziness, light-headedness and headaches. Objective Vital signs: BP 134/78 Pulse 80 Temp 99.3 F (Temporal) Resp 16 SpO2 97% Office Visit on 04/21/2025 Component Date Value Ref Range Status FLU A 04/21/2025 Negative Final FLU B 04/21/2025 Negative Final SARS COV 2 RNA 04/21/2025 Negative Final Physical Exam HENT: Head: Normocephalic. Right Ear: Tympanic membrane normal. Left Ear: Tympanic membrane normal. Nose: Congestion present. Mouth/Throat: Mouth: Mucous membranes are moist. Pharynx: Posterior oropharyngeal erythema present. Eyes: Pupils: Pupils are equal, round, and reactive to light. Cardiovascular: Rate and Rhythm: Normal rate and regular rhythm. Pulmonary: Effort: Pulmonary effort is normal. Breath sounds: Wheezing present. Skin: General: Skin is warm and dry. Neurological: Mental Status: He is alert and oriented to person, place, and time. Psychiatric: Mood and Affect: Mood normal. Assessment/Plan Assessment & Plan 1. Cough:Respiratory infection. - The patient reports a terrible cough, low-grade fever, shortness of breath, body aches, sore throat, and phlegm production. - Physical exam findings include a red throat and slight wheezing in the chest. - COVID test results are negative, and the patient has been advised to take prescribed medications to alleviate symptoms. - Augmentin twice daily for 7 days, codeine cough syrup every 8 hours, and prednisone 40 mg once daily for 5 days have been prescribed. Medications sent to pharmacy. Problem List Items Addressed This Visit None Visit Diagnoses Lower respiratory infection - Primary Relevant Medications amoxicillin-clavulanate (Augmentin) 875-125 MG tablet guaiFENesin-codeine (Robitussin-AC) 100-10 MG/5ML syrup predniSONE (Deltasone) 20 MG tablet Acute cough Relevant Medications amoxicillin-clavulanate (Augmentin) 875-125 MG tablet guaiFENesin-codeine (Robitussin-AC) 100-10 MG/5ML syrup predniSONE (Deltasone) 20 MG tablet Other Relevant Orders STATUS COVID-19/FLU (Completed) Health Maintenance Topic Date Due Diabetes: Retinopathy Screening Never done Influenza Vaccine (1) 04/12/2025 Diabetes: Hemoglobin A1C 05/19/2025 Medicare Annual Wellness (AWV) 08/25/2025 Diabetes: Urine Protein Screening 02/16/2026 Pneumococcal Vaccine: 65+ Years Completed Immunization History Administered Date(s) Administered Influenza Whole 05/12/2013, 04/12/2014 Influenza, Seasonal, Quadrivalent, Adjuvanted 04/27/2021, 05/01/2023 Influenza, Unspecified 05/23/2015, 05/08/2016, 05/07/2017, 05/15/2018, 04/23/2019, 04/27/2020, 06/10/2020, 04/27/2021, 05/01/2023 Influenza, trivalent, adjuvanted 05/05/2024 Pfizer Cavanaugh Cap SARS-CoV-2 Vaccination 12/23/2021 Pfizer Purple Cap SARS-CoV-2 Vaccination 09/17/2020, 10/07/2020, 05/19/2021, 06/07/2023 Pneumococcal Conjugate PCV 20 08/25/2024 Pneumococcal Polysaccharide PPSV23 04/12/2007, 04/12/2014, 04/19/2015 SARS-COV-2 (COVID-19) vaccine, mRNA, spike protein, LNP, PF, bita-sucrose, 30 mcg/0.3 mL 06/07/2023 SARS-COV-2 (COVID-19) vaccine, mRNA, spike protein, LNP, bivalent, preservative free, 30 mcg/0.3 mLdose, bita-sucrose formulation 05/11/2022 Zoster, Recombinant 10/14/2019, 12/23/2019 Zoster, live 07/15/2009 -Patient's chronic conditions have been reviewed in preparation for this appointment. Protocols reviewed and updated. A collaborative plan of care has been created for pt regarding specific health concerns. Any barriers to care have been identified and addressed. Any part of this document that has been added/copied from other documents has been reviewed for accuracy and updated as appropriate at the time of the patient encounter. -Follow up for Next scheduled follow-up. Mary Hedrick NP documented in this encounterPershing Memorial [id number] Evaluation note* Diagnosis Onset Date Resolution Status Admit Date Essential (primary) hypertension acuteAugust 2024 10:32amNonobstructive atherosclerosis of coronary artery acuteAugust 2024 10:32am [facility] Work Phone: [phone] 505-468808-22-2025 History of Present illness Narrative* Mary Hedrick NP - 04/02/2025 10:00 AM EDT Images from the original note were not included. Subjective Patient ID: Jessenia Pyle (: 1945) is a 79 y.o. male who presents for Abdominal Pain. HPI History of Present Illness The patient presents for evaluation of R flank pain He has been experiencing right-sided abdominal pain for approximately 2 weeks, which he initially suspected to be due to kidney stones. However, the current pain is different from his previous experiences with kidney stones. He reports no recent heavy lifting or unusual activities. He reports no nausea, fever, chills, or changes in appetite or bowel movements. He has a history of kidney stones, which have previously required emergency room visits and surgical intervention. During one of these episodes, he was warned about the risk of sepsis. He did try to call Dr. Small office yesterday and he is out of the office until next week. Current Outpatient Medications Medication Instructions albuterol HFA 90 mcg/act inhaler 2 puffs, Inhalation, Every 4 hours PRN aspirin 81 mg, Every 24 hours doxazosin (CARDURA) 4 mg, Oral, Nightly ezetimibe (ZETIA) 10 mg, Oral, Nightly Multiple Vitamins-Minerals (CENTRUM ADULTS PO) Take by mouth potassium citrate CR (Urocit-K-15) 15 mEq ER tablet 15 mEq, Oral, 2 times daily with meals rosuvastatin (CRESTOR) 40 mg, Oral, Nightly Semaglutide (2 MG/DOSE) 2 mg, Subcutaneous, Weekly tamsulosin (FLOMAX) 0.4 mg, Oral, Nightly valsartan (DIOVAN) 160 mg, Oral, Nightly Allergies Allergen Reactions Atorvastatin Unknown Other Reaction(s): Muscle pain, Myalgia Cerivastatin Other Reaction(s): Muscle pain, Myalgia, Unknown, Unknown Colesevelam Other Reaction(s): Unknown, Unknown, Unknown Ezetimibe Other Reaction(s): Muscle pain, Myalgia, Unknown, Unknown Other Reaction(s): Myalgia Fluvastatin Other Reaction(s): Muscle pain, Myalgia, Unknown, Unknown Lisinopril Cough Losartan Cough Metaxalone Unknown Simvastatin Other Reaction(s): Muscle pain, Myalgia, Unknown, Unknown Patient Active Problem List Diagnosis BPH (benign prostatic hyperplasia) CAD (coronary artery disease) HTN (hypertension) Mixed hyperlipidemia Thrombocytopenia Type 2 diabetes mellitus, without long-term current use of insulin (HCC) Chronic right shoulder pain Kidney stones Low serum total protein level Blood donor Lipoma Review of Systems Constitutional: Negative for chills, fatigue and fever. Genitourinary: Positive for flank pain. Negative for dysuria and hematuria. Objective Vital signs: BP 134/78 (Patient Position: Sitting) Pulse 80 Resp 16 SpO2 98% Physical Exam Constitutional: Appearance: Normal appearance. HENT: Head: Normocephalic. Mouth/Throat: Mouth: Mucous membranes are moist. Eyes: Pupils: Pupils are equal, round, and reactive to light. Cardiovascular: Rate and Rhythm: Normal rate and regular rhythm. Pulmonary: Effort: Pulmonary effort is normal. Breath sounds: Normal breath sounds. Abdominal: Palpations: Abdomen is soft. Tenderness: There is right CVA tenderness. Skin: General: Skin is warm and dry. Neurological: Mental Status: He is alert and oriented to person, place, and time. Psychiatric: Mood and Affect: Mood normal. Assessment/Plan Assessment & Plan 1. Abdominal pain: - He reports experiencing abdominal pain for approximately 1.5 to 2 weeks. The pain does not radiate and is not associated with nausea, fever, or chills. He has a history of kidney stones but believes this pain feels different. - A urine sample will be collected to check for any signs of blood or infection. Additionally, a CTscan of the abdomen and pelvis will be ordered to further investigate the cause of the pain. - If the CT scan shows any abnormalities, further treatment will be discussed. -If symptoms worsen he is to report to ER. Problem List Items Addressed This Visit None Visit Diagnoses Right flank pain - Primary Relevant Orders CT abdomen pelvis wo IV contrast POCT Urinalysis dipstick (Completed) History of renal calculi Relevant Orders CT abdomen pelvis wo IV contrast POCT Urinalysis dipstick (Completed) Health Maintenance Topic Date Due Diabetes: Retinopathy Screening Never done Influenza Vaccine (1) 04/12/2025 Diabetes: Hemoglobin A1C 05/19/2025 Medicare Annual Wellness (AWV) 08/25/2025 Diabetes: Urine Protein Screening 02/16/2026 Pneumococcal Vaccine: 65+ Years Completed Immunization History Administered Date(s) Administered Influenza Whole 05/12/2013, 04/12/2014 Influenza, Seasonal, Quadrivalent, Adjuvanted 04/27/2021, 05/01/2023 Influenza, Unspecified 05/23/2015, 05/08/2016, 05/07/2017, 05/15/2018, 04/23/2019, 04/27/2020, 06/10/2020, 04/27/2021, 05/01/2023 Influenza, trivalent, adjuvanted 05/05/2024 Pfizer Cavanaugh Cap SARS-CoV-2 Vaccination 12/23/2021 Pfizer Purple Cap SARS-CoV-2 Vaccination 09/17/2020, 10/07/2020, 05/19/2021, 06/07/2023 Pneumococcal Conjugate PCV 20 08/25/2024 Pneumococcal Polysaccharide PPSV23 04/12/2007, 04/12/2014, 04/19/2015 SARS-COV-2 (COVID-19) vaccine, mRNA, spike protein, LNP, PF, bita-sucrose, 30 mcg/0.3 mL 06/07/2023 SARS-COV-2 (COVID-19) vaccine, mRNA, spike protein, LNP, bivalent, preservative free, 30 mcg/0.3 mLdose, btia-sucrose formulation 05/11/2022 Zoster, Recombinant 10/14/2019, 12/23/2019 Zoster, live 07/15/2009 -Patient's chronic conditions have been reviewed in preparation for this appointment. Protocols reviewed and updated. A collaborative plan of care has been created for pt regarding specific health concerns. Any barriers to care have been identified and addressed. Any part of this document that has been added/copied from other documents has been reviewed for accuracy and updated as appropriate at the time of the patient encounter. -Follow up for Next scheduled follow-up. Mary Hedrick NP documented in this encounterPershing Memorial [id number] History of Present illness Narrative* Ti Ochoa DO - 03/19/2025 10:15 AM EDT Images from the original note were not included. Jessenia Pyle is a 79 y.o. male presents for 1st pow Exc. Lt. shoulder lipoma HPI: HPI Jessenia presents for his first post op from resection of a lipoma. He is doing well, no pain OBJECTIVE: Physical Exam Skin: Comments: Left upper shoulder incision is healing nicely ASSESSMENT AND PLAN: Assessment/Plan Diagnoses and all orders for this visit: Lipoma of other specified sites The path confirmed a benign lipoma, I'll discharge him and see him PRN documented in this encounterPershing Memorial [id number] History of Present illness Narrative* Ti Ochoa DO - 02/26/2025 10:45 AM EDT Images from the original note were not included. Jessenia Pyle 1945 Jessenia Pyle is a 79 y.o. male presents with chief complaint of Shoulder lipoma HPI: HPI Jessenia states he has a lipoma on the left shoulder that has been present for many years and it is getting bigger, and is uncomfortable when he presses on it. He states it sometimes appears bigger or smaller MEDICATIONS: ALLERGIES Current Outpatient Medications Medication Instructions albuterol HFA 90 mcg/act inhaler 2 puffs, Inhalation, Every 4 hours PRN aspirin 81 mg, Every 24 hours doxazosin (CARDURA) 4 mg, Oral, Nightly ezetimibe (ZETIA) 10 mg, Oral, Nightly Multiple Vitamins-Minerals (CENTRUM ADULTS PO) Take by mouth. potassium citrate CR (Urocit-K-15) 15 mEq ER tablet TAKE 1 TABLET BY MOUTH IN THE MORNING AND 1 TABLET BY MOUTH IN THE EVENING TAKE WITH MEALS rosuvastatin (CRESTOR) 40 mg, Oral, Nightly Semaglutide (2 MG/DOSE) 2 mg, Subcutaneous, Weekly tamsulosin (FLOMAX) 0.4 mg, Oral, Nightly valsartan (DIOVAN) 160 mg, Nightly Allergies Allergen Reactions Atorvastatin Unknown Other Reaction(s): Muscle pain, Myalgia Cerivastatin Other Reaction(s): Muscle pain, Myalgia, Unknown, Unknown Colesevelam Other Reaction(s): Unknown, Unknown, Unknown Ezetimibe Other Reaction(s): Muscle pain, Myalgia, Unknown, Unknown Other Reaction(s): Myalgia Fluvastatin Other Reaction(s): Muscle pain, Myalgia, Unknown, Unknown Lisinopril Cough Losartan Cough Metaxalone Unknown Simvastatin Other Reaction(s): Muscle pain, Myalgia, Unknown, Unknown PAST MEDICAL HISTORY: SOCIAL HISTORY SURGICAL HISTORY: Past Medical History: Diagnosis Date Bronchitis CAD (coronary artery disease) Herpes simplex without mention of complication History of medical problems ulcers Hyperlipidemia Hypertension Kidney stones Measles Migraines Migraine, unspecified without mention of intractable migraine without mention of status migrainosus Mumps Osteoarthritis Pneumonia Thrombocytopenia Type II diabetes mellitus (HCC) Social History Tobacco Use Smoking status: Former Current packs/day: 0.00 Average packs/day: 0.3 packs/day for 15.0 years (3.8 ttl pk-yrs) Types: Cigarettes Start date: 08/12/1954 Quit date: 08/12/1969 Years since quittin.5 Passive exposure: Never Smokeless tobacco: Never Substance Use Topics Alcohol use: Yes Alcohol/week: 4.0 - 8.0 standard drinks of alcohol Types: 4 - 8 Standard drinks or equivalent per week Comment: Caffeine: iced tea occasionally Drug use: Never Past Surgical History: Procedure Laterality Date CARDIAC CATHETERIZATION 07/24/2012 COLONOSCOPY [address] Plasencia LITHOTRIPSY 2020 [place] ARTHROSCOPY KNEE DIAGNOSTIC W/WO SYNOVIAL BX SPX 10/02/2019 Rt Knee Arthroscopy - MTP TONSILLECTOMY VASECTOMY FAMILY HISTORY Family History Problem Relation Name Age of Onset Heart disease Mother Mom Hypertension Mother Mom Stroke Mother Mom Cancer Mother Mom Hypertension Father Dad Heart disease Father Dad Breast cancer Neg Hx Colon cancer Neg Hx Ovarian cancer Neg Hx REVIEW OF SYMPTOMS: Review of Systems Constitutional: Negative for activity change. HENT: Positive for tinnitus. Negative for hearing loss and voice change. Respiratory: Negative for shortness of breath. Cardiovascular: Negative for chest pain. Gastrointestinal: Negative for abdominal distention, diarrhea, nausea and vomiting. Neurological: Negative for dizziness, seizures and headaches. Psychiatric/Behavioral: Negative. All other systems reviewed and are negative. Hematological: Bruises/bleeds easily. OBJECTIVE: Visit Vitals Smoking Status Former Physical Exam Vitals reviewed. HENT: Head: Normocephalic. Eyes: Pupils: Pupils are equal, round, and reactive to light. Cardiovascular: Rate and Rhythm: Normal rate and regular rhythm. Pulmonary: Effort: Pulmonary effort is normal. Abdominal: General: Bowel sounds are normal. Palpations: Abdomen is soft. Musculoskeletal: General: Normal range of motion. Skin: General: Skin is warm. Comments: 5 cm lipoma on the right posterior shoulder Neurological: General: No focal deficit present. Mental Status: He is alert. ASSESSMENT AND PLAN: Assessment/Plan Diagnoses and all orders for this visit: Lipoma of other specified sites - Ambulatory referral to General Surgery I explained the findings of a lipoma and discussed surgical resection. I feel this can be done under straight local, he is in agreement and surgery has been scheduled. documented in this encounterPershing Memorial [id number] Evaluation note* Diagnosis Onset Date Resolution Status Admit Date Essential (primary) hypertension acuteMay 2024 10:06am [facility] Work Phone: 1(615) 899-699903-20-2025 Evaluation note* Diagnosis Onset Date Resolution Status Admit Date Essential (primary) hypertension acuteMarch 2024 12:45pmEssential (primary) hypertensionacuteApril 2024 9:47am [facility] Work Phone: 1(650) 345-607502-12-2025 Evaluation note* Diagnosis Onset Date Resolution Status Admit Date Essential (primary) hypertension acuteFebruary 2024 9:45amNonobstructive atherosclerosis of coronary artery acuteFebruary 2024 9:45amEssential (primary) hypertensionacuteMarch 2024 12:45pm [facility] Work Phone: 1(112) 568-309702-06-2025 History of Present illness Narrative* Spencer Zarate NP - 09/17/2024 1:45 PM EST Images from the original note were not included. Jessenia Pyle is a 79 y.o. male presents with chief complaint of Back Pain (Pt states he is having lower back pain, onset x 1 weeks ago. He was fixing a door and possibly twisted his body possibly.Pt denies numbness and tingling. ) and Shoulder Pain (Pt states he is having RT shoulder pain, onset x 1 month. Different motions effect the pain tolerance. ) HPI: HPI I have reviewed and reconciled the history and medication list with the patient today. Pt presents today with left sided SI joint pain and low back pain after working on his Hot Tub outside. It is improving. He is using a muscle rub. He did see cardiology and had a cardiac cath. HISTORIES: PAST MEDICAL HISTORY: Past Medical History: Diagnosis Date Bronchitis CAD (coronary artery disease) ([facility]) Herpes simplex without mention of complication History of medical problems ulcers Hyperlipidemia (CMS/HCC) Hypertension ([facility]/HCC) Kidney stones Measles Migraines ([facility]) Migraine, unspecified without mention of intractable migraine without mention of status migrainosus Mumps Osteoarthritis Pneumonia Thrombocytopenia ([facility]) Type II diabetes mellitus ([facility]) SURGICAL HISTORY: Past Surgical History: Procedure Laterality Date CARDIAC CATHETERIZATION 07/24/2012 COLONOSCOPY [address] Plasencia LITHOTRIPSY 2020 [place] ARTHROSCOPY KNEE DIAGNOSTIC W/WO SYNOVIAL BX SPX 10/02/2019 Rt Knee Arthroscopy - MTP TONSILLECTOMY VASECTOMY SOCIAL HISTORY: Social History Tobacco Use Smoking status: Former Current packs/day: 0.00 Average packs/day: 0.3 packs/day for 15.0 years (3.8 ttl pk-yrs) Types: Cigarettes Start date: 08/12/1954 Quit date: 08/12/1969 Years since quittin.1 Passive [...] Unknown REVIEW OF SYMPTOMS: Review of Systems Respiratory: Positive for shortness of breath. Negative for cough and wheezing. Cardiovascular: Negative for chest pain. Musculoskeletal: Positive for arthralgias. Right shoulder and left SI joint pain Neurological: Positive for weakness. Psychiatric/Behavioral: Negative for sleep disturbance. PHYSICAL EXAM: Visit Vitals BP 132/80 Pulse 80 Wt 210 lb SpO2 98% BMI 26.42 kg/m Smoking Status Former BSA 2.24 m BP Readings from Last 3 Encounters: 09/17/24 132/80 08/25/24 130/78 07/29/24 144/90 Wt Readings from Last 3 Encounters: 09/17/24 210 lb 08/25/24 210 lb 07/29/24 212 lb Physical Exam Constitutional: Appearance: Normal appearance. HENT: Head: Normocephalic. Eyes: Extraocular Movements: Extraocular movements intact. Cardiovascular: Rate and Rhythm: Normal rate. Pulmonary: Breath sounds: Normal breath sounds. Musculoskeletal: Right shoulder: Tenderness present. No swelling or deformity. Lumbar back: Tenderness present. Comments: Able to abduct 120 degrees--shoulder Tenderness of right SI joint Skin: General: Skin is warm and dry. Neurological: Mental Status: He is oriented to person, place, and time. Psychiatric: Mood and Affect: Mood normal. Thought Content: Thought content normal. Judgment: Judgment normal. ASSESSMENT AND PLAN: Assessment/Plan Dictated, but not read 1. Lumbosacral pain (Primary) XR lumbar spine 2 or 3 views - XR sacrum coccyx 2+ views - methylPREDNISolone (Medrol Dospak) 4 MG tablets; Take as directed on package. Dispense: 21 tablet; Refill: 0 Patient presents today for an acute visit. He is having left-sided SI joint pain. He is using a muscle rub, but he noticed when he was trying to fix the hot tub outside that he must ve moved incorrectly and tweaked his back. I did give him back exercises. I will give him a Medrol dose pack due to his diabetes. I will not use a higher dose of steroid. He will also start with Flexeril 5 mg at bedtime. He also wants me to x-ray his right shoulder which is also causing him discomfort. He is able toabduct his shoulder to 120 . He does have equal strength. I did suggest that he may need physical therapy for his back and his shoulder if it continues to be an issue. He can use topical Voltaren gel. 2. Chronic right shoulder pain - XR shoulder 2+ views right 3. Shortness of breath He was also. seen by cardiology for a cardiac Cath, and it was found that he did not have any blockages that would be causing his exertional shortness of breath. I did review his x-rays, CT and pulmonary function test. He appears to have mild restrictive disease, but no actual obstructive disease. He states he has tried inhalers in the past, and he is not sure if they actually worked or not. He had been on albuterol and trilogy. He would like to try an inhaler again. I will give him Brestree two puffs twice a day. Samples given to him. He did smoke when he was younger for several years but hehas quit over 50 years ago. He still may have some component of COPD. He will follow up with cardiology next week. Otherwise he s doing well And denies any issues. 4. Sacroiliac joint pain - cyclobenzaprine (Flexeril) 5 MG tablet; Take 1 tablet (5 mg) by mouth 3 (three) times a day as needed for muscle spasms Dispense: 15 tablet; Refill: 0 Spencer Zarate, MSN, NEGOTIATOR SALES-KEYCASE ASSEMBLER documented in this encounterPershing Memorial [id number] Hospital Discharge instructions Patient Education 08/31/2024 10:38:41 Kidney Stones, Gvnw-sv-Myod Kidney Stones Kidney stones are rock-like masses [...] pee. The stone usually leaves your body through your pee. A doctor may need to take out the stone. What are the causes? Kidney stones may be caused by: Too much calcium in the body. This may be caused by too much parathyroid hormone in the blood. Uric acid crystals in the bladder. The body makes uric acid when you eat certain foods. Narrowing of one or both of the ureters. A kidney blockage that you were born with. Past surgery on the kidney or the ureters. What increases the risk? You are more likely to develop this condition if: You have had a kidney stone in the past. Other people in your family have had kidney stones. You do not drink enough water. You eat a diet that is high in protein, salt (sodium), or sugar. You are very overweight (obese). What are the signs or symptoms? Symptoms of a kidney stone may include: Pain in the side of the belly, right below the ribs. Pain usually spreads to the groin. Needing to pee often or right away. Pain when peeing. Blood in your pee. Feeling like you may vomit (nauseous). Vomiting. Fever and chills. How is this treated? Treatment depends on the size, location, and makeup of the kidney stones. The stones will often pass out of the body when you pee. You may need to: Drink more fluid to help pass the stone. ?In some cases, you may be given fluids through an IV tube at the hospital. Take medicine for pain. Change your diet to help keep kidney stones from coming back. Sometimes, you may need: A procedure to break up kidney stones using a beam of light (laser) or shock waves. Surgery to remove the kidney stones. Follow these instructions at home: Medicines Take rnvp-ipl-qqoijbp and prescription medicines only as told by your doctor. Ask your doctor if the medicine prescribed to you requires you to avoid driving or using machinery. Eating and drinking Drink enough fluid to keep your pee pale yellow. ?You may be told to drink at least 8 10 glasses of water each day. This will help you pass the stone. If told by your doctor, change your diet. You may be told to: ?Limit how much salt you eat. ?Eat more fruits and vegetables. ?Limit how much meat, poultry, fish, and eggs you eat. Follow instructions from your doctor about what you may eat and drink. General instructions Collect pee samples as told by your doctor. You may need to collect a pee sample: ?24 hours after a stone comes out. ?8 12 weeks after a stone comes out, and every 6 12 months after that. Strain your pee every time you pee. Use the strainer that your doctor recommends. Do not throw out the stone. Keep it so that it can be tested by your doctor. Keep all follow-up visits. You may need X-rays and ultrasounds to make sure the stone has come out. How is this prevented? To prevent another kidney stone: Drink enough fluid to keep your pee pale yellow. This is the best way to prevent kidney stones. Eat healthy foods. Avoid certain foods as told by your doctor. You may be told to eat less protein. Stay at a healthy weight. Where to find more information National Kidney Foundation (NKF): kidney.org Urology Care Foundation (UCF): urologyhealth.org Contact a doctor if: You have pain that gets worse or does not get better with medicine. Get help right away if: You have a fever or chills. You get very bad pain. You get new pain in your belly. You faint. You cannot pee. This information is not intended to replace advice given to you by your health care provider. Make sure you discuss any questions you have with your health care provider. Document Revised: 03/22/2023 Document Reviewed: 03/22/2023 [employer] Patient Education 2023 [employer] Follow Up Care 04/14/2024 11:59:59 With:STACI HALEY, Jesusita Payan, URL Address: [facility] [address] [place] [address]- [phone] When: Unknown Comments:F/u pending KUB results [facility] 01-20-2025 [facility]At[facility] Education [facility] Kidney Stones Kidney stones are rock-like masses that form inside of the kidneys. Kidneys are organs that make pee (urine). A kidney stone may move into other parts of the urinary tract, including: ??? The tubes that connect the kidneys to the bladder (ureters). ??? The bladder. ??? The tube that carries urine out of the body (urethra). Kidney stones can cause very bad pain and can block the flow of pee. The stone usually leaves your body through your pee. A doctor may need to take out the stone. What are the causes? Kidney stones may be caused by: ??? Too much calcium in the body. This may be caused by too much parathyroid hormone in the blood. ??? Uric acid crystals in the bladder. The body makes uric acid when you eat certain foods. ??? Narrowing of one or both of the ureters. ??? A kidney blockage that you were born with. ??? Past surgery on the kidney or the ureters. What increases the risk? You are more likely to develop this condition if: ??? You have had a kidney stone in the past. ??? Other people in your family have had kidney stones. ??? You do not drink enough water. ??? You eat a diet that is high in protein, salt (sodium), or sugar. ??? You are very overweight (obese). What are the signs or symptoms? Symptoms of a kidney stone may include: ??? Pain in the side of the belly, right below the ribs. Pain usually spreads to the groin. ??? Needing to pee often or right away. ??? Pain when peeing. ??? Blood in your pee. ??? Feeling like you may vomit (nauseous). ??? Vomiting. ??? Fever and chills. How is this treated? Treatment depends on the size, location, and makeup of the kidney stones. The stones will often pass out of the body when you pee. You may need to: ??? Drink more fluid to help pass the stone. ? In some cases, you may be given fluids through an IV tube at the hospital. ??? Take medicine for pain. ??? Change your diet to help keep kidney stones from coming back. Sometimes, you may need: ??? A procedure to break up kidney stones using a beam of light (laser) or shock waves. ??? Surgery to remove the kidney stones. Follow these instructions at home: Medicines ??? Take lpyj-xlk-uycpith and prescription medicines only as told by your doctor. ??? Ask your doctor if the medicine prescribed to you requires you to avoid driving or using machinery. Eating and drinking ??? Drink enough fluid to keep your pee pale yellow. ? You may be told to drink at least 8?10 glasses of water each day. This will help you pass the stone. ??? If told by your doctor, change your diet. You may be told to: ? Limit how much salt you eat. ? Eat more fruits and vegetables. ? Limit how much meat, poultry, fish, and eggs you eat. ??? Follow instructions from your doctor about what you may eat and drink. General instructions ??? Collect pee samples as told by your doctor. You may need to collect a pee sample: ? 24 hours after a stone comes out. ? 8?12 weeks after a stone comes out, and every 6?12 months after that. ??? Strain your pee every time you pee. Use the strainer that your doctor recommends. ??? Do not throw out the stone. Keep it so that it can be tested by your doctor. ??? Keep all follow-up visits. You may need X-rays and ultrasounds to make sure the stone has come out. How is this prevented? To prevent another kidney stone: ??? Drink enough fluid to keep your pee pale yellow. This is the best way to prevent kidney stones. ??? Eat healthy foods. ??? Avoid certain foods as told by your doctor. You may be told to eat less protein. ??? Stay at a healthy weight. Where to find more information ??? National Kidney Foundation (NKF): kidney.org ??? Urology Care Foundation (UCF): urologyhealth.org Contact a doctor if: ??? You have pain that gets worse or does not get better with medicine. Get help right away if: ??? You have a fever or chills. ??? You get very bad pain. ??? You get new pain in your belly. ??? You faint. ??? You cannot pee. This information is not intended to replace advice given to you by your health care provider. Make sure you discuss any questions you have with your health care provider. Document Revised: 03/22/2023 Document Reviewed: 03/22/2023 [employer] Patient Education ? 2023 [employer] [facility] 08-25-2024 History of Present illness Narrative* Spencer Zarate, FLANGER - 08/25/2024 11:15 AM EST Images from the original note [...] a living will and healthcare power of assistant district attorney in place. He has received both shingles vaccines and the Prevnar 23 vaccine. He believes he has also received the Prevnar 13 vaccine, but this isnot documented in his medical record. He has [...] and manage most of your health problems?: (Patient-Rptd)(P) Very confident Can you mange your money, credit cards and accounts, pay bills and taxes?: (Patient-Rptd) (P) Yes Vision Screening: Yes, patient sees regular business objects analyst/customer loyalty representative Hearing Screening: Yes, no gross abnormalities Cognitive Screening Three Word Registration: Banana, [place], Chair Clock Drawing: Normal Clock - 2 Three Word Recall: All 3 words correct - 3 Total Score (0-5 Points): 5 Pain Assessment Pain Score: (Patient-Rptd) (P) 2 HISTORIES: PAST MEDICAL HISTORY: Past Medical History: Diagnosis Date Bronchitis CAD (coronary artery disease) (CMS/HCC) Herpes simplex without mention of complication History of medical problems ulcers Hyperlipidemia (CMS/HCC) Hypertension (CMS/HCC) Kidney stones Measles Migraines ([facility]/HCC) Migraine, unspecified without mention of intractable migraine without mention of status migrainosus Mumps Osteoarthritis Pneumonia Thrombocytopenia (CMS/HCC) Type II diabetes mellitus ([facility]/HCC) SURGICAL HISTORY: Past Surgical History: Procedure Laterality Date CARDIAC CATHETERIZATION 07/24/2012 COLONOSCOPY [address] Plasencia LITHOTRIPSY 2020 CO ARTHROSCOPY KNEE DIAGNOSTIC W/WO SYNOVIAL BX SPX [...] protein, LNP, bivalent, preservative free, 30 mcg/0.3 mLdose, bita-sucrose formulation 05/11/2022 Zoster, Recombinant 10/14/2019, 12/23/2019 [...] patient today by Spencer Zarate NP. Demographics updated.The past medical history, family history, and social history reviewed and updated. The medication list (including supplements) has been reconciled. -A list of other providers involved with the patient's care and any durable medical goods providers documented. -Depression screening was completed andaddressed as indicated. Cognitive function was assessed by direct observation and assessment of ability to perform ADLs and iADLs was done. As well as Mini-Cog assessment. -We reviewed, and discussedas indicated, safety issues, including falls risk assessment. -Time was spent reviewing and discussi ng age-appropriate screenings, immunizations and indicated laboratory monitoring. [...] complication, without long-term current use of insulin ([facility]) - Comprehensive metabolic panel; Future - Microalbumin [...] for prostate 5. Coronary artery disease involving [place] coronary artery of [place] heart without angina pectoris([facility]) -follows with Dr. Macias -has a cath scheduled 09-01-- -Exertional dyspnea, anginal equivalent -He reports shortness of breath with exertion. A cardiac catheterization is scheduled for Saturday to investigate further. 6. Primary hypertension ([facility]) - Comprehensive metabolic panel; Future - Microalbumin / creatinine urine ratio; Future 7. Mixed hyperlipidemia ([facility]) - Lipid panel; Future 8. Thrombocytopenia ([facility]) - HEMOGRAM CBC WITHOUT DIFF ([facility]); Future 9. Prostate cancer screening - PSA; Future Dr. Pierre was present in office suite today and is supervising patient care and available for consult. I'm following his plan of care for the above problems. Previous notes and plan were reviewed and followed. documented in this [facility]12-20-2024 Evaluation note* Diagnosis Onset Date Resolution Status Admit Date Essential (primary) hypertension acuteDe2023 10:37amNonobstructive atherosclerosis of coronary arteryacuteDeceer 2023 10:37amDyspnea on exertionnoneactiveDecember 2023 10:37amAtypical chest painnoneactiveDeceer 2023 10:37am [facility] Work Phone: 1(202) 517-347312-20-2024 Evaluation note* Diagnosis Onset Date Resolution Status Admit Date Essential (primary) hypertension acuteJuly 31, 2024 10:37amNonobstructive atherosclerosis of coronary arteryacuteDecember 2023 10:37amDyspnea on exertionnoneactiveDecember 2023 10:37amAtypical chest painnoneactiveDecember 2023 10:37am Essential (primary) hypertensionacuteFebruary 2024 9:45amNonobstructive atherosclerosis of coronary arteryacuteFebruary 2024 9:45amDyspnea on exertionnoneactiveFebruary 2024 9:45amAtypical chest painnoneactive February 2024 9:45am [facility] Work Phone: 1([phone]) 129-382812-20-2024 Evaluation note* Diagnosis Onset Date Resolution Status Admit Date Essential (primary) hypertension acuteDecember 2023 10:37amNonobstructive atherosclerosis of coronary arteryacuteDecember 2023 10:37amDyspnea on exertionnoneactiveDecember 2023 10:37amAtypical chest painnoneactiveDecember 2023 10:37am Essential (primary) hypertensionacuteFebruary 2024 9:45amNonobstructive atherosclerosis of coronary arteryacuteFebruary 2024 9:45amEssential (primary) hypertensionacuteMarch 2024 12:45pm [facility] Work Phone: 1(522) 983-651310-01-2024 History of Present illness Narrative* Spencer Zarate, MABEL - 05/12/2024 8:45 AM EDT Jessenia Pyle [...] CARDIAC CATHETERIZATION 07/24/2012 COLONOSCOPY [address] Plasencia LITHOTRIPSY 2020 CO ARTHROSCOPY KNEE DIAGNOSTIC W/WO SYNOVIAL BX SPX [...] all orders for this visit: Primary hypertension (CMS/HCC) - ECG 12 lead Type 2 diabetes mellitus with other specified complication, without long-term current use of insulin (CMS/HCC) -check A1C Benign prostatic hyperplasia without lower urinary tract symptoms Coronary artery disease involving [place] coronary artery of [place] heart without angina pectoris (CMS/HCC) Trochanteric bursitis of left hip - triamcinolone [...] were reviewed and followed. documented in this encounterPershing Memorial [id number] Hospital Discharge instructions Patient Education 04/14/2024 11:46:59 [...] Up Care 04/07/2024 15:26:57 With:Jesusita SMALL Address: [address] [place], [place] [id number] Business (1) When:07/14/2024 11:46:40 Comments:With a stone metabolic workup [facility] 09-03-2024 NotePatient Education Custom Cystoscopy with [...] if you have a fever over 100 degrees.[facility] 04-01-2024 Hospital Discharge instructions Patient Education 04/01/2024 [...] Follow these instructions at home: Medicines Take qplu-zyz-ajzvyzx and prescription medicines only as told by [...] prevent or treat constipation, such as: ?Take gveu-gzq-rshdmcg or prescription medicines. ?Eat foods that are [...] provider. Document Revised: 12/05/2022 Document Reviewed: 04/02/2022 [employer] Patient Education 2022 [employer]. 04/01/2024 14:26:06 Laser Therapy for Kidney Stones [...] including vitamins, herbs, eye drops, creams, and kgpl-nlt-smogfvu medicines. Any problems you or family members [...] provider tells you to take them. ?Taking thhf-hmj-vepkmzo medicines, vitamins, herbs, and supplements. Eating and [...] provider. Document Revised: 12/05/2022 Document Reviewed: 04/02/2022 [employer] Patient Education 2022 [employer]. Follow Up Care 03/31/2024 15:56:28 With:STACI HALEY, Jesusita Payan, URL Address: [facility] [address] [place] [address] [phone] When: Unknown [facility] 08-21-2024 NotePatient Education Nephrology Laser Therapy [...] these instructions at home: Medicines ? Take rkrb-qpy-xjkxyrp and prescription medicines only as told by [...] or treat constipation, such as: ? Take jdzv-hlu-wtmxxec or prescription medicines. ? Eat foods that [...] provider. Document Revised: 12/05/2022 Document Reviewed: 04/02/2022 [employer] Patient Education ? 2022 [employer] Laser Therapy for Kidney Stones Laser [...] including vitamins, herbs, eye drops, creams, and pqkt-nqe-akpmsnc medicines. ? Any problems you or family [...] caused by a f (more content not included)...[facility]08-15-2024 Hospital Discharge instructions Patient Education 03/26/2024 19:13:15 [...] include: ?8 oz (237 mL) of milk, asjidqf-bktoxlxnvwmw-wujyc milk, and calcium- fortifiedfruit juice. Calcium-fortified means [...] ?Spinach (cooked), rhubarb, beets, sweet potatoes, and Turkmen chard. ?Peanuts. ?Potato chips, fijian fries, and baked potatoes with skin on. ?Nuts and nut products. ?Chocolate. If you regularly take a diuretic medicine, make sure to eat at least 1 or 2 servings of fruits or vegetables that are high in potassium each day. These include: ?Avocado. ?Banana. ?Hettinger, prune, carrot, or tomato juice. ?Baked potato. [...] magnesium, fish oil, or vitamin B6. Take nszk-ijx-wpgjrxh and prescription medicines only as told by [...] Casseroles. Pizza. Lasagna. Frozen meals. Potato chips. Chadian fries. The items listed above may not [...] provider. Document Revised: 11/08/2022 Document Reviewed: 11/08/2022 [employer] Patient Education 2022 [employer] 03/26/2024 19:13:15 Kidney Stones Kidney Stones Kidney [...] Follow these instructions at home: Medicines Take dkjk-pti-hokifid and prescription medicines only as told by [...] provider. Document Revised: 11/07/2022 Document Reviewed: 11/07/2022 [employer] Patient Education 2022 [employer]. Follow Up Care 03/26/2024 16:05:10 With:Jesusita SMALL Address: [address] [place] [id number] [address] (1) [address] [place] [address] ticckle (1) When:03/29/2024 18:13:07 [facility] 08-15-2024 NoteED Patient Education Note Nephrology [...] ? 8 oz (237 mL) of milk, mfawfui-lwgitcohybij-vmxmt milk, and calcium- fortifiedfruit juice. Calcium-fortified means [...] Spinach (cooked), rhubarb, beets, sweet potatoes, and Turkmen chard. ? Peanuts. ? Potato chips, fijian fries, and baked potatoes with skin on. ? Nuts and nut products. ? Chocolate. ? If you regularly take a diuretic medicine, make sure to eat at least 1 or 2 servings of fruits orvegetables that are high in potassium each day. These include: ? Avocado. ? Banana. ? Hettinger, prune, carrot, or tomato juice. ? Baked [...] fish oil, or vitamin B6. ? Take vmym-kfa-kzhbois and prescription medicines only as told by your health care provider. Theseinclude (more content not included)...[facility]02-07-2024 History of Present illness Narrative* Spencer Zarate, FLANGER - 09/18/2023 3:00 PM EST Jessenia Pyle [...] He was going to go to the [employer] show and didn't go because he didn't [...] CARDIAC CATHETERIZATION 07/24/2012 COLONOSCOPY [address] Plasencia LITHOTRIPSY 2020 CO ARTHROSCOPY KNEE DIAGNOSTIC W/WO SYNOVIAL BX SPX [...] sitting to standing position. documented in this encounterPershing Memorial HospitalIykdbojath86-46-7972 Hospital Discharge instructions Patient Education 06/10/2023 11:40:57 [...] Follow these instructions at home: Medicines Take qqnp-csp-mmgfbly and prescription medicines only as told by [...] Kidney Foundation (NKF): www.kidney.org [facility] ([facility]): www.urologyhealth.org Contact a health care provider if: [...] provider. Document Revised: 04/18/2022 Document Reviewed: 04/02/2022 [employer] Patient Education 2022 [employer]. Follow Up Care 04/23/2022 11:06:30 With:STACI HALEY, Jesusita Payan, URL Address: [facility] [address] [place] [address] [phone] When: Unknown Comments:1 yr [facility] 05-01-2023 History of Present illness Narrative* 77-year-old [...] have been going on for few months. -[facility]Brooke Blanco DO Work Phone: 1([phone]) 486-654202-01-2023 History of Present illness Narrative* Patient was [...] we will schedule an echocardiogram as well. -[facility] DO Work Phone: 1([phone]) 491-117301-25-2023 Miscellaneous Notes* Telephone Encounter - Debbie Jimenez - 09/05/2022 9:41 AM EST Lee Knowles, OD [address] [place] [address] Via documented [facility]Bl[facility] Instructions* Patient Instructions* Tamanna Porras MD - [...] symptoms do not resolve. documented in this encounterBlanchard [facility]01-[facility]23 History of Present illness Narrative* Tamanna Porras [...] management of this patient's care with the Resident/Fellow/Shingle Inspector, if applicable. I also have reviewed and agree with the assessment and plan as stated above and agree with all of its relevant components. Tamanna Porras MD August 31, 2022 1:27 PM documented in this encounterBlanchard [facility]12-15-2022 Miscellaneous Notes* Telephone Encounter - Debbie Quinten [facility] - 07/26/2022 10:19 AM EST Faxed letter to Lee Knowles, OD [address] [place] [phone] Via documented in this encounterBlanchard [facility]12-09-2022 NoteHNO ID: [id number] Author: Tamanna Porras MD Service: ? Author [...] management of this patient's care with the Resident/Fellow/Shingle Inspector, if applicable. I also have reviewed and agree with the assessment and plan as stated above and agree with all of its relevant components. Tamanna Porrsa MD July 20, 2022 1:14 [facility] 07-20-2022 Miscellaneous Notes* Telephone Encounter - Kristin Macedo - 07/20/2022 1:47 PM EST Images from the original note were not included. Spoke with patient and advised to keep appt and that laser may possibly done that day. Booked laserroom per JM Per Dr Andre Porras MD You; Kiko [...] up scheduled on 08/31/22. documented in this encounterBlanchard [facility]12-09-2022 History of Present illness Narrative* Tamanna Porras [...] management of this patient's care with the Resident/Fellow/Shingle Inspector, if applicable. I also have reviewed and agree with the assessment and plan as stated above and agree with all of its relevant components. Tamanna Porras MD July 20, 2022 1:14 PM documented in this encounterBlanchard [facility]12-09-2022 Instructions* Patient Instructions* Tamanna Porras MD - [...] symptoms do not resolve. documented in this encounterBlanchard [facility]11-07-2022 Miscellaneous Notes* Telephone Encounter - Debbie Jimenez - 06/18/2022 10:24 AM EST Faxed letter and mailed color copies to Lee Knowles, OD [address] [place] [address] Via documented in this encounterBlanchard [facility]10-21-2022 NoteHNO ID: [id number] Author: Tamanna Porras MD Service: ? Author [...] management of this patient's care with the Resident/Fellow/Shingle Inspector, if applicable. I also have reviewed and agree with the assessment and plan as stated above and agree with all of its relevant components. Tamanna Porras MD June 01, 2022 1:37 [facility] 06-01-2022 Instructions* Patient Instructions* Tamanna Porras MD [...] procedure will be effective. documented in this encounterBlanchard [facility]10-21-2022 History of Present illness Narrative* Tamanna Porras [...] CIRRUS OU (BOTH EYES) Monitor for now [facility] SLT LEFT EYE on a Saturday I have confirmed and edited as necessary the relevant ophthalmic history, ROS, and the neuro exam findings as obtained by others. I have seen and examined this patient. I have discussed the case and the management of this patient's care with the Resident/Fellow/Shingle Inspector, if applicable. I also have reviewed and agree with the assessment and plan as stated above and agree with all of its relevant components. Tamanna Porras MD June 01, 2022 1:37 PM documented in this encounterBlanchard [facility]09-12-2022 Hospital Discharge instructions Patient Education 04/23/2022 10:49:55 Kidney Stones, Flln-pw-Offl Kidney Stones Kidney stones are rock-like masses [...] Follow these instructions at home: Medicines Take uvaw-pfd-mlhjcpr and prescription medicines only as told by [...] 01/14/2009 Document Revised: 12/15/2019 Document Reviewed: 12/15/2019 [employer] Patient Education 2019 [employer]. Follow Up Care 02/27/2021 11:54:33 With:STACI HALEY, Jesusita Payan, URL Address: [facility] [address], [place] [phone] When: Unknown [facility] 05-01-2022 History of Present illness Narrative* History [...] negative, chest x-ray no pulmonary vascular congestion -[facility] DO Work Phone: [phone]) 291-610905-01-2022 History of Present illness Narrative* History so [...] in blood pressure, we will resume Bystolic 05/17.25 mg daily, says that was the dose that patient was on previously. -[facility] [address] DO Work Phone: 1(511) 942-944201-10-2022 History of Present illness Narrative* Patient is [...] gets achy muscles with statins. * 4. [employer]pted[employer]an Myoview December 2021-normal perfusion LVEF 73% transient [...] * 3. Heart healthy lifestyle was encouraged. -[facility]Brooke [address] DO Work Phone: 1([phone]) [phone] History of Present illness Narrative* Mr. Pyle [...] to return in 6 months for follow-up. [facility] DO Work Phone: Chibs complaint Narrative - ReportedJESSENIA PYLE is being seen for a cardiovascular evaluation of dyspnea.[facility] Brooke [employer] DO Work Phone: chief complaint Narrative - ReportedJESSENIA PYLE is being seen for a consultation for GXT.[facility] [employer] DO Work Phone: Evaluation + Plan note Future Appointments Appointment Date:04/26/2023 10:45:00 AM Scheduled Provider:Jesusita SMALL MD Location:[facility] Appointment Type:URO Office Visit [facility] evaluation + Plan note Future Appointments Appointment Date:06/08/2024 10:30:00 AM Scheduled Provider:Jesusita SMALL MD Location:[facility] Appointment Type:URO Office Visit [facility] evaluation + Plan note Future Appointments Appointment Date:06/08/2024 10:30:00 AM Scheduled Provider:[facility] SMALL [facility] Office Visit Diagnostic Tests Pending * Calculi Analysis Urinary 04/01/24 [facility] Evaluation + Plan note Future Appointments Appointment Date:07/20/2024 12:15:00 PM Scheduled Provider:Jesusita SMALL MD Location:[facility] Appointment Type:URO Office Visit [facility] Evaluation noteNo assessment information available [facility] Work Phone: Evaluation note* Diagnosis Low tension glaucoma of left eye, indeterminate stage- Primary Glaucoma suspect of right eye Preglaucoma, unspecified documented in this encounter [facility]* Diagnosis Low tension glaucoma of left eye, indeterminate stage- Primary documented in this encounter [facility]* Diagnosis Glaucoma suspect of right eye- Primary Preglaucoma, unspecified documented in this encounter [facility]* Diagnosis Primary hypertension (CMS/HCC)- Primary Unspecified essential hypertension Orthostatic hypotension Lightheadedness Dizziness and giddiness documented in this encounter [facility]* Diagnosis Primary hypertension (CMS/HCC)- Primary Unspecified essential hypertension Type 2 diabetes mellitus with other specified complication, without long-term current use of insulin (CMS/HCC) Benign prostatic hyperplasia without lower urinary tract symptoms Coronary artery disease involving [place] coronary artery of [place] heart without angina pectoris (CMS/HCC) Trochanteric bursitis of left hip Other secondary osteoarthritis of left hip documented in this encounter [facility]Evaluation note* Diagnosis Primary hypertension (CMS/HCC)- Primary Unspecified essential hypertension Type 2 diabetes mellitus with other specified complication, without long-term current use of insulin (CMS/HCC) Pain of left hip Greater trochanteric bursitis of left hip Coronary artery disease involving [place] coronary artery of [place] heart without angina pectoris (CMS/HCC) documented in this encounter [facility]Evaluation note* Diagnosis Medicare annual wellness visit, subsequent- Primary ACP (advance care planning) Other specified counseling Type 2 diabetes mellitus with other specified complication, without long-term current use of insulin (CMS/HCC) Benign prostatic hyperplasia without lower urinary tract symptoms Coronary artery disease involving [place] coronary artery of [place] heart without angina pectoris (CMS/HCC) Primary hypertension (CMS/HCC) Unspecified essential hypertension Mixed hyperlipidemia (CMS/HCC) Mixed hyperlipidemia Thrombocytopenia (CMS/HCC) Unspecified thrombocytopenia Prostate cancer screening Special screening for malignant neoplasm of prostate Need for vaccination with 20-polyvalent pneumococcal conjugate vaccine documented in this encounter [facility] HealthcareEvaluation note* Diagnosis Lumbosacral pain- Primary Chronic right shoulder pain Pain in joint, shoulder region Shortness of breath Sacroiliac joint pain Disorders of sacrum documented in this encounter [facility]* Diagnosis Influenza A- Primary Influenza with other respiratory manifestations Acute cough Type 2 diabetes mellitus with other specified complication, without long-term current use of insulin documented in this encounter [facility]* Diagnosis Primary hypertension- Primary Unspecified essential hypertension Pain of left hip Coronary artery disease involving [place] coronary artery of [place] heart without angina pectoris Type 2 diabetes mellitus with other specified complication, without long-term current use of insulin (HCC) Mixed hyperlipidemia Mixed hyperlipidemia Lipoma of other specified sites Blood donor Low serum total protein level Thrombocytopenia Unspecified thrombocytopenia documented in [facility]* Diagnosis Lipoma of other specified sites documented in this encounter [facility]* Diagnosis Lipoma of other specified sites- Primary documented in this encounter [facility]* Diagnosis Right flank pain- Primary Abdominal pain, unspecified site History of renal calculi Personal history of urinary calculi documented in this encounter [facility]* Diagnosis Onset Date Resolution Status Admit Date Essential (primary) hypertension acuteAugust 2024 10:32amNonobstructive atherosclerosis of coronary artery acuteAugust 2024 10:32am [facility] Work Phone: Evaluation note* Diagnosis Lower respiratory infection- Primary Other diseases of respiratory system, not elsewhere classified Acute cough documented in this encounter [facility]* Diagnosis Acute cough- Primary Lower respiratory infection Other diseases of respiratory system, not elsewhere classified Shortness of breath Acute cough documented in this encounter [facility]* Diagnosis Bilateral low back pain without sciatica, unspecified chronicity- Primary DJD (degenerative joint disease), 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 * I ordered a [employer] Myoview, he has significant chronotropic blunting hence treadmill perfusion imaging will not be of help. * Follow-up after testing sooner if interval problems arise [facility]oke [address] DO Work Phone: Hospital course Narrative No data available for this section [facility] Hospital Discharge instructions No data available for this section [facility] Hospital Discharge instructions Additional Instructions DISCHARGE INSTRUCTIONS FOR CARDIAC DIRECTOR ORANGE PROCEDURE: Heart Cath The following instructions have been prepared to help you care for yourself, or be cared for upon your return home. 1. You were given conscious sedation. Do not operate a vehicle, power tools, make important decisions, or drink alcohol for 24 hours. You might be drowsy or light headed. Return to the Emergency Room if you have trouble breathing, walking or nausea and vomiting. 2. FOR BLEEDING: Apply continuous pressure to the site and call 911. 3. Operative Site Care: Keep the dressing clean and dry. You may change the dressing only if soiled or wet. You may remove the dressing the following morning. You may wash over the puncture site in the shower. If the puncture site is at the wrist no soaking for 3 days. Some bruising or slight swelling may be present. -Signs of infection are redness, warmth, swelling, getting more sore, colored drainage, fever or chills. -Should the arm or leg become cold, numb, blue or white, call the backup operator immediately. 4. ACTIVITY: You are advised to go directly home from the hospital. Restrict your activities for the rest of the day. Resume light or normal activities tomorrow. Do not engage in any activity that will stress the puncture site. Avoid heavy lifting (over 15 lbs.), straining or bending at the catheter site for 48 hours after discharge. If the puncture site is at the wrist do not manipulate wrist for 24 hours and no lifting more than 3 lbs for 3 days. 5. DIET:You may eat your regular diet when you desire. 6. MEDICATIONS: Resume your daily prescription schedule. Prescriptions may be sent with you if needed. Use as directed. When taking pain medications, you may experience dizziness or drowsiness. Do not drink alcohol or drive when taking pain medications. 7. If you should experience episodes of angina e.g. chest discomfort, heaviness, tightness, pressure, burning, with or without radiation to the neck, jaws, arms, or back- Use 1 Nitrostat under your tongue every 5-10 minutes, and up to 3 tablets. If no relief- Call 911 and go to the nearest Emergency Room. -Notify the office for recurrent angina, chest pain or other concerns. You may NOT drive yourself home! Follow the medication instructions provided on your discharge. If the dosages and instructions on this sheet differ from the dosage and instructions on the bottle, follow the instructions on the bottle. [facility] is not responsible for incorrect prescription information provided by the patient during their visit. Do not stop your medications without consulting your health care provider. Please take the list with you to your next doctor's appointment.[facility] Work Phone: Progress note No data available for this section [facility] [facility] reason for referral (narrative)No reason for referral information availableUc Health Contactual Work Phone: Summary Purpose Family History Unknown Family Member Name Dates Details Family history of CABG: Fath er(V17.49, Z82.49) Status:ActiveFamily history of malignant neoplasm: Mother(V16.9, Z80.9) Status:Active Unknown Family Member Name Dates Details Family history of CABG: Fath er(V17.49, Z82.49) Status:ActiveFamily history of malignant neoplasm: Mother(V16.9, Z80.9) Status:Active Unknown Family Member Name Dates Details Family history of CABG: Fath er(V17.49, Z82.49) Status:ActiveFamily history of malignant neoplasm: Mother(V16.9, Z80.9) Status:Active Unknown Family Member Name Dates Details Family history of CABG: Fath er(V17.49, Z82.49) Status:ActiveFamily history of malignant neoplasm: Mother(V16.9, Z80.9) Status:Active Unknown Family Member Name Dates Details Family history of CABG: Fath er(V17.49, Z82.49) Status:ActiveFamily history of malignant neoplasm: Mother(V16.9, Z80.9) Status:Active Unknown Family Member Name Dates Details Family history of CABG: Fath er(V17.49, Z82.49) Status:ActiveFamily history of malignant neoplasm: Mother(V16.9, Z80.9) Status:Active Unknown Family Member Name Dates Details Family history of CABG: Fath er(V17.49, Z82.49) Status:ActiveFamily history of malignant neoplasm: Mother(V16.9, Z80.9) Status:Active Unknown Family Member Name Dates Details Family history of CABG: Fath er(V17.49, Z82.49) Status:ActiveFamily history of malignant neoplasm: Mother(V16.9, Z80.9) Status:Active Unknown Family Member Name Dates Details Family history of CABG: Fath er(V17.49, Z82.49) Status:ActiveFamily history of malignant neoplasm: Mother(V16.9, Z80.9) Status:Active Unknown Family Member Name Dates Details Family history of CABG: Fath er(V17.49, Z82.49) Status:ActiveFamily history of malignant neoplasm: Mother(V16.9, Z80.9) Status:Active Unknown Family Member Name Dates Details Family history of CABG: Fath er(V17.49, Z82.49) Status:ActiveFamily history of malignant neoplasm: Mother(V16.9, Z80.9) Status:Active Unknown Family Member Name Dates Details Family history of CABG: Fath er(V17.49, Z82.49) Status:ActiveFamily history of malignant neoplasm: Mother(V16.9, Z80.9) Status:Active Unknown Family Member Name Dates Details Family history of CABG: Fath er(V17.49, Z82.49) Status:ActiveFamily history of malignant neoplasm: Mother(V16.9, Z80.9) Status:Active Unknown Family Member Name Dates Details Family history of CABG: Fath er(V17.49, Z82.49) Status:ActiveFamily history of malignant neoplasm: Mother(V16.9, Z80.9) Status:Active Unknown Family Member Name Dates Details Family history of CABG: Fath er(V17.49, Z82.49) Status:ActiveFamily history of malignant neoplasm: Mother(V16.9, Z80.9) Status:Active Unknown Family Member Name Dates Details Family history of CABG: Fath er(V17.49, Z82.49) Status:ActiveFamily history of malignant neoplasm: Mother(V16.9, Z80.9) Status:Active Unknown Family Member Name Dates Details Family history of CABG: Vania er(V17.49, Z82.49) Status:ActiveFamily history of malignant neoplasm: Mother(V16.9, Z80.9) Status:Active Relationship Condition Age at Onset Recorded Date/[place] father Heart disease Unknown History of coronary artery bypass surgeryUnknown Relationship Condition Age at Onset Recorded Date/[place] father Heart disease Unknown History of coronary artery bypass surgeryUnknownmotherCerebrovascular accident (CVA)Unknown Advance Directives Advance Directive Response Recorded Date/ Time Advance Directives No May 15, 2017 9:24am Advance Directive Response Recorded Date/ Time Advance Directives No May 15, 2017 8:24am Advance Directive Response Recorded Date/ Time Advance Directives No June 10, 2024 11:51am Advance Directive Response Recorded Date/ Time Advance Directives No June 10, 2024 12:51pm Chief Complaint JESSENIA PYLE is being seen for a 7 month follow-up of.JESSENIA PYLE is being seen for a 6 month follow-up of.JESSENIA PLYE is being seen for a 4 week [...] nicholson ry artery April 05, 2025 10:32am Chief Complaint I10;J45.909;I25.10;E 78.00;R73.01;N20;R97.20;N40.1 See order Chief [...] for Visit Admit Date [facility] Nonobstructive atherosclerosis of nicholson ry [...] 10:34am Dyspnea, CAD, Chest Pain August 28, 025 9:07am Chief Complaint Admit Date Kidney stones June 17, 2024 2 :40pm n20.0 June 19, 2024 3 :18pm H02.83 July 16, 2024 7 :31am Prev NOH patient/SOB July 31, 2024 10:37am E78.5 July 31, 2024 10:47am I10 E11.69 E78.2 I25.10 D69.6 N40.0 Severiano sahil 2024 10:34am Dyspnea, CAD, Chest Pain August 28 025 9:07am Dyspnea, CAD, Chest Pain September 01 9:43am Chief Complaint Admit Date H02.83 July 16, 2024 7 :31am Prev NOH patient/SOB July 31, 2024 10:37am E78.5 July 31, 2024 10:47am I10 E11.69 E78.2 I25.10 D69.6 N40.0 Severiano sahil2024 10:34am Dyspnea, CAD, Chest Pain August 28 9:07am Dyspnea, CAD, Chest Pain September 01 9:43am Dyspnea, CAD, Chest Pain September 01 1:12pm 2 months September 23, 2024 9:45am Reason for Visit Admit Date Essential (primary) hypertension [facility] 2023 10:37am Nonobstructive atherosclerosis of nicholson ry artery July 31, 2024 10:37am Dyspnea on exertion July 31, 2024 10:37am Atypical chest pain July 31, 2024 10:37am Essential (primary) hypertension 2024 9:45am Nonobstructive atherosclerosis of nicholson ry artery September 23, 2024 9:45am Dyspnea on exertion September 23, 2024 9:45am Atypical chest pain September 23, 2024 9:45am Chief Complaint Admit Date Prev NOH patient/SOB July 31, 2024 10:37am E78.5 July 31, 2024 10:47am I10 E11.69 E78.2 I25.10 D69.6 N40.0 Severiano 2024 10:34am Dyspnea, CAD, Chest Pain August 28 9:07am Dyspnea, CAD, Chest Pain September 01 9:43am Dyspnea, CAD, Chest Pain September 01 1:12pm 2 months September 23, 2024 9:45am BP with medications October 29, 2024 12: 45pm Reason for Visit Admit Date Essential (primary) hypertension [facility] 2023 10:37am Nonobstructive atherosclerosis of nicholson ry artery July 31, 2024 10:37am Dyspnea on exertion July 31, 2024 10:37am Atypical chest pain July 31, 2024 10:37am Essential (primary) hypertension 2024 9:45am Nonobstructive atherosclerosis of nicholson ry artery September 23, 2024 9:45am Essential (primary) hypertension October 112024 12:45pm Chief Complaint Admit Date Dyspnea, CAD, Chest Pain August 28 025 9:07am Dyspnea, CAD, Chest Pain September 01 9:43am Dyspnea, CAD, Chest Pain September 01 1:12pm 2 months September 23, 2024 9:45am BP with medications October 29, 2024 12: 45pm bp check November 17, 2024 9:47 am Reason for Visit Admit Date Essential (primary) hypertension 2024 9:45am Nonobstructive atherosclerosis of nicholson ry artery September 23, 2024 9:45am Essential (primary) hypertension October 112024 12:45pm Chief Complaint Admit Date BP with medications October 29, 2024 12: 45pm bp check November 17, 2024 9:47 am Bp check December 22, 2024 10:06 am Reason for Visit Admit Date Essential (primary) hypertension October 112024 12:45pm Essential (primary) hypertension November 172024 9:47am Chief Complaint Admit Date Bp check December 22, 2024 10:06 am d69.6 e11.69 i10 e78.2 z12.February 16 11:17am Reason for Visit Admit Date Essential (primary) hypertension December 10:06am Chief Complaint Admit Date d69.6 e11.69 i10 e78.2 z12.5 February 16 11:17am Left Posterior shoulder Lipoma February 9:30am I25.10 I1March 23, 2025 11 :07am Chief Complaint Admit Date d69.6 e11.69 i10 e78.2 z12.February 16 025 11:17am Left Posterior shoulder Lipoma February 9:30am I25.10 I10 March 23, 2025 11 :07am 6 April 05, 2025 10 :32am Reason for Visit Admit Date Essential (primary) hypertension April 05, 2025 10:32am Nonobstructive atherosclerosis of nicholson ry artery April 05, 2025 10:32am Chief Complaint Admit Date 6 months April 05, 2025 10 :32am Fatty Liver June 23, 2025 6:31am Medications Administered Section Medication OrderMAR ActionAction DateDoseRateSite fluorescein-benoxinate 0.25-0.4 % 1 Drop (FLURESS) 1 Drop, BOTH EYES, DIRECTED, Starting on Sat06/01/22 at 1230, Until 06/02/22 at 0029, Administer for applanation tonometry. In the event of a Fluress shortage, administer [place]-Fluor 1 drop into both eyes as directed for applanation tonometry, [facility] MED ORDERS Given06/01/2022 12:30 PM EDT1 Drop PHENYLephrine 2.5 % 1 Drop (AK-DILATE, DONNA-SYNEPHRINE) 1 Drop, BOTH EYES, DIRECTED, Starting on Sat06/01/22 at 1230, Until 06/02/22 at 0029, Administer for dilation PROTECT FROM LIGHT, [facility] CLINIC MED ORDERS Given06/01/2022 12:30 PM EDT1 Drop proparacaine 0.5 % 1 Drop (ALCAINE) 1 Drop, BOTH EYES, DIRECTED, Starting on 06/01/22 at 1230, Until 06/02/22 at 0029, Administer for pneumo tonometry, tonopen tonometry, or pachymetry. In the event of a proparacaine shortage, administer tetracaine 0.5% ophthalmic drops 1 drop in both eyes as directed for pneumo tonometry,tonopen tonometry, or pachymetry, [facility] CLINIC MED ORDERS Given06/01/2022 12:30 PM EDT1 Drop tropicamide 1 % 1 Drop (MYDRIACYL) 1 Drop, BOTH EYES, DIRECTED, Starting on Sat06/01/22 at 1230, Until 06/02/22 at 0029, Administer for dilation, OPHT CLINIC MED ORDERS Given06/01/2022 12:30 PM EDT1 DropMedication OrderMAR ActionAction DateDoseRate Site fluorescein-benoxinate 0.25-0.4 % 1 Drop (FLURESS) 1 Drop, RIGHT EYE, DIRECTED, Starting on Sat08/31/22 at 1400, Until 09/01/22 at 0159, Administer for applanation tonometry. In the event of a Fluress shortage, administer [place]-Fluor 1 drop intothe right eye as directed for applanation tonometry Given08/31/2022 2:00 PM EST1 Drop proparacaine 0.5 % 1 Drop (ALCAINE) 1 Drop, RIGHT EYE, DIRECTED, Starting on Sat08/31/22 at 1400, Until 09/01/22 at 0159, Administer for pneumo tonometry, tonopen tonometry, or pachymetry. In the event of a proparacaine shortage,administer tetracaine 0.5% ophthalmic drops 1 drop in the right eye as directed for pneumo tonometry, tonopen tonometry, or pachymetry Given08/31/2022 2:00 PM EST1 Drop Additional Source Comments (unrecognized sect ion [...] section and content) DATE CREATED AUTHOR 03/20/2021 [facility] DATE CREATED AUTHOR AUTHOR'S ORGANIZ ATION 10/20/2021 [facility] Assistant Case Manager DATE CREATED AUTHOR AUTHOR'S ORGANIZ ATION 08/02/2022 [facility] DATE CREATED AUTHOR AUTHOR'S ORGANIZ ATION 03/22/2023 [facility] DATE CREATED AUTHOR AUTHOR'S ORGANIZ ATION 03/22/2023 [employer] DATE CREATED AUTHOR AUTHOR'S ORGANIZ ATION 04/12/2023 [facility] DATE CREATED AUTHOR AUTHOR'S ORGANIZ ATION 03/28/2024 [facility] DATE CREATED AUTHOR AUTHOR'S ORGANIZ ATION 04/09/2024 [facility] DATE CREATED AUTHOR AUTHOR'S ORGANIZ ATION 06/24/2024 [facility] DATE CREATED AUTHOR AUTHOR'S ORGANIZ ATION 09/05/2024 [facility] DATE CREATED AUTHOR AUTHOR'S ORGANIZ ATION 09/25/2024 [facility] DATE CREATED AUTHOR AUTHOR'S ORGANIZ ATION 06/20/2025 [facility] DATE CREATED AUTHOR AUTHOR'S ORGANIZ ATION 06/24/2025 [facility] Care Team (unrecognized sect ion and content) Team Status: Inactive Member Role Status Dates Chris Pierre DO Primary Care Provider, Attending Andrzej rivera Active Team Status: Inactive Member Role Status Dates Chris Pierre DO Primary Care Provider Active Dee Dee Aponte ProviderActive Team Status: Active Member Role Status Dates Chris Pierre DO Primary Care Provider Active Team Status: Inactive Member Role Status Dates Chris Pierre DO Primary Care Provider, Other Provi sadia Active Eduardo Brock DOAttyfn ProviderActiveFernie Aponte Provider Active Team Status: Inactive Member Role Status Dates Chris Pierre DO Primary Care Provider Active Dee Dee Torres ProviderActiveTeam MemberRelationshipSpecialtyStart DateEnd Date Chris Pierre DO [address] [facility] [address] [place] [address] PCP - GeneralInternal Medicine02/06/23 Team Status: Inactive Member Role Status Dates Chris Pierre DO Primary Care Provider Active Start: July 09, 2023 End: July 09Dee Dee Perez ProviderActiveStart: July 09, 2023 End: July 09, 2023 Team Status: Inactive Member Role Status Dates Chris Pierre DO Primary Care Provide r, Attending Provider Active Start: August 02, 2023 End: August 02, 2023 Team Status: Inactive Member Role Status Dates Chris Pierre DO Primary Care Provider Active Start: September 29, 2023 End: September 29Fermin Cooper ProviderActiveStart: September 29, 2023 End: September 29, 2023 Team Status: Inactive Member Role Status Dates Chris Pierre DO Primary Care Provider Active Start: February 04, 2024 End: February 04, 2024GeFernie Vázquez ProviderActiveStart: February 04, 2024 End: February 04, 2024Spencer Zarate RN MSN ANP-CAttending ProviderActive Start: February 04, 2024 End: February 04, 2024 Team Status: Inactive Member Role Status Dates Chris Pierre DO Primary Care Provider Active Start: February 20, 2024 End: February 20, 2024Fermin Schreiber ProviderActiveStart: February 20, 2024 End: February 20, 2024 Team Status: Inactive Member Role Status Dates Chris Pierre DO Primary Care Provider Active Start: April 01, 2024 End: April 01Dee Dee Perez ProviderActiveStart: April 01, 2024 End: April 01, 2024Team MemberRelationshipSpecialtyStart DateEnd Date Chris Pierre DO [address] [place] [address] PCP - GeneralInternal Medicine02/06/23Team MemberRelationshipSpecialtyStart Date End Date Chris Pierre DO [address] [place] [address] PCP - GeneralInternal Medicine02/06/23 Team Status: Active Member Role Status Dates Chris Pierre DO Primary Care Provider Active Start: April 02, 2024 Linda Foster ProviderActiveStart: April 02, 2024 Team Status: Inactive Member Role Status Dates Chris Pierre DO Primary Care Provider Active Start: June 17, 2024 End: June 17Dee Dee Perez ProviderActiveStart: June 17, 2024 End: June 17, 2024 Team Status: Inactive Member Role Status Dates Chris Pierre DO Primary Care Provider Active Start: June 19, 2024 End: June 19Dee Dee Perez ProviderActiveStart: June 19, 2024 End: June 19, 2024Team MemberRelationshipSpecialtyStart DateEnd Date Chris Pierre DO [address] [place] [address] PCP - GeneralInternal Medicine02/06/23Team MemberRelationshipSpecialtyStart Date End Date Chris Pierre DO [address] [place] [address] PCP - GeneralInternal Medicine02/06/23Team MemberRelationshipSpecialtyStart Date End Date Chris Pierre DO [address] [place] [address] PCP - GeneralInternal Medicine02/06/23Team MemberRelationshipSpecialtyStart Date End Date Chris Pierre DO [address] [place] [address] PCP - GeneralInternal Medicine02/06/23Team MemberRelationshipSpecialtyStart Date End Date Chris Pierre DO [address] [place] [address] PCP - GeneralInternal Medicine02/06/23 Team Status: Inactive Member Role Status Dates Chris Pierre DO Primary Care Provider Active Start: July 16, 2024 End: July 16, 2024Dee Dee Ibarra ProviderActiveStart: July 16, 2024 End: July 16, 2024 Team Status: Inactive Member Role Status Dates Chris Pierre DO Primary Care Provider Active Start: July 31, 2024 End: July 31, 2024Dee Dee Saldivar ProviderActive Start: July 31, 2024 End: July 31, 2024 Team Status: Inactive Member Role Status Dates Chris Pierre DO Primary Care Provide r, Attending Provider Active Start: August 18, 2024 End: August 18, 2024Team MemberRelationshipSpecialtyStart DateEnd Date Chris Pierre DO [address] [place] [address] PCP - [facility] Medicine02/06/23Team MemberRelationshipSpecialtyStart Date End Date Ignacio, Chris Joya [address] [place] [address] PCP - [facility] Medicine02/06/23 Team Status: Inactive Member Role Status Dates Chris Pierre DO Primary Care Provide r, Referring Provider Active Start: August 28, 2024 End: August 28, 2024GeDee Dee Calvillo ProviderActive Start: August 28, 2024 End: August 28, 2024 Team Status: Inactive Member Role Status Dates Chris Pierre DO Primary Care Provider Active Start: September 01, 2024 End: September 01, 2024Georisaac Chauhan MDAttending ProviderActive Start: September 01, 2024 End: September 01, 2024Team MemberRelationshipSpecialtyStart DateEnd Date Ignacio Chris Joya [address] [place] [address] PCP - [facility]02/06/23 Team Status: Active Member Role Status Dates Chris Pierre DO Primary Care Provider Active Start: September 01, 2024 Dee Dee Saldivar Provider, Other ProviderActiveStart: September 01, 2024 Team Status: Inactive Member Role Status Dates Chris Pierre DO Primary Care Provider Active Start: September 23, 2024 End: September 23, 2024Gemarisa Chauhan MDAttyfn ProviderActive Start: September 23, 2024 End: September 23, 2024 Team Status: Inactive Member Role Status Dates Chris Pierre DO Primary Care Provider Active Start: October 29, 2024 End: October 29, 2024Georisaac Chauhan MDAttending ProviderActiveStart: October 29, 2024 End: October 29, 2024Team MemberRelationshipSpecialtyStart DateEnd Date Chris Pierre DO [address] [place] [address] PCP - GeneralInternal Medicine02/06/23 Team Status: Inactive Member Role Status Dates Chris Pierre DO Primary Care Provider Active Start: November 17, 2024 End: November 17, 2024GeorDee Dee Phillips ProviderActiveStart: November 17, 2024 End: November 17, 2024 Team Status: Inactive Member Role Status Dates Chris Pierre DO Primary Care Provider Active Start: December 22, 2024 End: December 22, 2024GeDee Dee Calvillo ProviderActiveStart: December 22, 2024 End: December 22, 2024 Team Status: Inactive Member Role Status Dates Chris Pierre DO Primary Care Provider Active Start: February 16, 2025 End: February 16, 2025Spencer Zarate RN MSN ANP-CAttending ProviderActiveStart: February 16, 2025 End: February 16, 2025Team MemberRelationshipSpecialtyStart DateEnd Date IgnacioChris DO [address] [facility] [address] [place] [address] [facility] - [facility]/06/23Team MemberRelationshipSpecialtyStart Date End Date Chris Pierre DO [address] [place] [address] [facility]/06/23 Team Status: Inactive Member Role Status Dates Ti Ochoa DO Attending Provider Active Start: March 10, 2025 End: March 10, 2025 Team Status: Active Member Role Status Dates Jessenia Loving MD Primary Care Provider Active Team Status: Inactive Member Role Status Dates Misha Chauhan MD Attending Provider Activ e Start: March 23, 2025 End: March 23, 2025Lazara Rod Care ProviderActiveStart: March 23, 2025 End: March 23, 2025Team MemberRelationshipSpecialtyStart DateEnd Date Chris Pierre DO [address] [place] [address] PCP - GeneralInternal Medicine02/06/23 Team Status: Inactive Member Role Status Dates Misha Chauhan MD Attending Provider Activ e Start: April 05, 2025 End: April 05, 2025Robert Ta Elapascualmeir Care ProviderActiveStart: April 05, 2025 End: April 05, 2025Team MemberRelationshipSpecialtyStart DateEnd Date Jessenia Loving MD [address] [place] [address] PCP - GeneralInternal Medicine04/21/25Team MemberRelationshipSpecialtyStart Date End Date Jessenia Loving MD [address] [place] [address] PCP - GeneralInternal Medicine04/21/25Team MemberRelationshipSpecialtyStart Date End Date Chris Pierre DO [address] [place] [address] PCP - GeneralInternal Medicine/05/06 Jessenia Loving MD [address] [place] [address] PCP - GeneralInternal Medicine04/21/25Team MemberRelationshipSpecialtyStart Date End Date Jessenia Loving MD [address] [place] [address] PCP - GeneralInternal Medicine04/21/25 Team Status: Active Member Role/Relationship Status Dates Jessenia Loving MD Primary Care Provider Active Team Status: Inactive Member Role/Relationship Status Dates Misha Chauhan MD Attending Provider Activ e Start: April 05, 2025 End: April 05, 2025Lazara Rod Care ProviderActiveStart: April 05, 2025 End: April 05, 2025 Team Status: Inactive Member Role/Relationship Status Dates Jessenia Loving MD Primary Care Provider Active St art: June 23, 2025 End: June 23, 2025Temporary FibroscanAttending ProviderActiveStart: June 23, 2025 End: June 23, 2025 Goals (unrecognized section and content) Goals may be documented in a n alternate section Source Comments (unrecognize d section and content) In the event this informatio n is protected by the Federal Confidentiality of Alcohol and Drug Abuse Patient Records regulations: The Federal rules restrict any use of the information to criminally investigate or prosecute any alcohol or drug abuse patient.[facility] the event this information is protected by the Federal Confidentiality of Alcohol and Drug Abuse Patient Records regulations: The Federal rules restrict any use of the information to criminally investigate or prosecute any alcohol or drug abuse patient.[facility] HospitalIn the event this information is protected by the Federal Confidentiality of Alcohol and Drug Abuse Patient Records regulations: The Federal rules restrict any use of the information to criminally investigate or prosecute any alcohol or drug abuse patient.[facility] HospitalIn the event this information is protected by the Federal Confidentiality of Alcohol and Drug Abuse Patient Records regulations: The Federal rules restrict any use of the information to criminally investigate or prosecute any alcohol or drug abuse patient.[facility] HospitalIn the event this information is protected by the Federal Confidentiality of Alcohol and Drug Abuse Patient Records regulations: The Federal rules restrict any use of the information to criminally investigate or prosecute any alcohol or drug abuse patient.[facility] HospitalIn the event this information is protected by the Federal Confidentiality of Alcohol and Drug Abuse Patient Records regulations: The Federal rules restrict any use of the information to criminally investigate or prosecute any alcohol or drug abuse patient.[facility] HospitalIn the event this information is protected by the Federal Confidentiality of Alcohol and Drug Abuse Patient Records regulations: The Federal rules restrict any use of the information to criminally investigate or prosecute any alcohol or drug abuse patient.[facility] Reason for Visit (unrecogniz ed section and content) ReasonCommentsGlaucoma SuspectBoth EyesReasonCommentsLetterReasonCommentsLaser Eye Surgery Left EyeReasonCommentsFuture AppointmentReasonCommentsLaser Eye Surgery Right EyeSLTReasonCommentsBlood Pressure CheckPt presents for a bp check. Patient states that within the last week his BP has been low. He states that when he stands up he feels dizzy. It has been a little better in the afternoon.ReasonCommentsHypertensionPt is here to check his BP. He has been checking it at home and he said it is noticing it is going up. Home checks were 168/110. He takes the amlodipine and this will take it down to 140/90's. He is a lso having pain in his left hip. He had an injection in the past and this has helped.ReasonCommentsHip PainPt is here for left pain pain. He also has right ear pain. He has been using ear drops.ReasonComments6 month f/u and medicare wellness visitPt is here for 6 month visit and Medicare Wellness exam.Reason CommentsBack PainPt states he is having lower back pain, onset x 1 weeks ago. He was fixing a door and possibly twisted his body possibly. Pt denies numbness and tingling.Shoulder PainPt states he is having RT shoulder pain, onset x 1 month. Different motions effect the pain tolerance.ReasonCommentsCoughCough, fever, headache, sore throat , ears hurt onset 4-5 days. Home Covid test negative yesterday.ReasonComments6 mos ovPt is being seen today for his/her month follow up and managment of his/her chronic conditions. Pt had lab work done in preparations for todays visit, results and recommendations will be reviewed with them.ReasonCommentsLeft Shoulder lipomaSpecialtyDiagnoses / ProceduresReferred By ContactReferred To ContactGeneral Surgery Diagnoses Lipoma of other specified sites Procedures CO OFFICE/OUTPATIENT NEW HIGH MDM 60 MINUTES Ignacio Chris A, DO [address] [place] [address] Phone: tel: fax: Gaetano Taylor, DO [address] [place] [address] Phone: tel: fax: Referral IDStatusReasonStart DateExpiration DateVisits RequestedVisits [id number] Consult and Treat /[id number] pow Exc. Lt. shoulder lipomaReasonComments Abdominal PainReasonCommentsCoughReasonCommentsIllnessReasonCommentsBack Pain Continued right sided back pain (side). Xray done 04/27 for back pain. Pt thought it mightve been akidney stone but xray came back normal. FOR RECORDS PERTAINING TO PATIENTS WHO ARE [...] BE BASED ON THE PRIMARY CLINICAL RECORDS. [facility]. provides no warranty or guarantee of the accuracy or completeness of information in this document.
--- OUTSIDE RECORDS SUMMARY | 2025-07-04 09:41 | XMS_ITS | Encounter Summary ---
Author Organization [facility] Address [address] [place] [address] Care Team Providers Care Macroeconomics Professor Name Role Phone Rian Chappell MD Primary Care Provider [phone] Encounter Details DateTypeDepartmentCare Team (Latest Contact Info)Qymoxlnrlch84/12/2025Travel Social History Tobacco UseTypesPacks/DayYears UsedDateSmoking Tobacco: FormerCigarettes0.315 [...] drinks on one occasion?Never02/12/2024HQ-2AnswerDate RecordedPatient Health Questionnaire-2 [id number] and Gender InformationValueDate RecordedSex Assigned at BirthNot on fileLegal IdlGwha5110/24/2022 6:54 PM EDTGender IdentityNot on file Sexual OrientationNot on fileOccupationIndustryJob Start DateJob End DateRetired Not on fileNot on fileNot on filedocumented as of this encounter Plan of Treatment DateTypeDepartmentCare Team (Latest Contact Info)Erfgyeirels85/17/2025 4:00 PM ESTOffice Visit [facility] [place] [facility] [address] [place] [address] 09/02/2025 10:00 AM ESTOffice Visit [facility] [address] [place] [address] documented as of this encounter Visit Diagnoses Not on filedocumented in this encounter Additional Health Concerns AssessmentNoted TimePHQ-9 Depression Total Score: 6:27 PM EST documented as of this encounter Care Teams Team MemberRelationshipSpecialtyStart DateEnd Date Rian Chappell MD [address] [place] [address] PCP - GeneralInternal Medicine04/21/25documented as of this encounter
--- OUTSIDE RECORDS SUMMARY | 2025-07-04 09:41 | XMS_ITS | Encounter Summary ---
Author Organization [facility] Address [address] [place] [address] Care Team Providers Care Repulping Supervisor Name Role Phone Rian Chappell MD Primary Care Provider [phone] Reason for Referral * Imaging (Routine) - AuthorizedSpecialtyDiagnoses / ProceduresReferred By ContactReferred To ContactBody Imaging Diagnoses Fatty liver Procedures FIBROSCAN Rian Chappell MD [address] [facility] [address] [place] [address] Phone: tel: fax: [facility] [place] [place] [address] fax: Referral IDStatusReasonStart DateExpiration DateVisits RequestedVisits [id number] Encounter Details DateTypeDepartmentCare Team (Latest Contact Info)Jokyddyatmj00/06/2025Results Follow-Up [facility] [address] [facility] [address] [place] [phone] Spencer Ferguson NP [address] [facility] [address] [place] [address] CBC and differential, Basic metabolic panel, Hepatic function panel, Additional followed-up results: 2 Social History Tobacco UseTypesPacks/DayYears UsedDateSmoking Tobacco: FormerCigarettes0.315 [...] drinks on one occasion?Never02/12/2024HQ-2AnswerDate RecordedPatient Health Questionnaire-2 Zurne474Sex and Gender InformationValueDate RecordedSex Assigned at BirthNot on fileLegal BxrEkfq4410/24/2022 6:54 PM EDTGender IdentityNot on file Sexual OrientationNot on fileOccupationIndustryJob Start DateJob End DateRetired Not on fileNot on fileNot on filedocumented as of this encounter Miscellaneous Notes * Telephone Encounter - Miroslava Jiménez LPN - 07/01/2025 9:55 AM EST Patient notified of results and plan of care * Telephone Encounter - Miroslava Jiménez LPN - 07/01/2025 9:55 AM EST ----- Message from Spencer Ferguson sent at 07/01/2025 9:16 AM EST ----- Advise pt that his fibroscan showed moderate stiffness and should be evaluated every one to two years. ----- Message ----- From: Rian Chappell MD Sent: 07/01/2025 12:16 AM EST To: Spencer Ferguson NP ----- Message ----- From: Nel Wang Sent: 06/29/2025 1:12 PM EST To: Rian Chappell MD A new document has been added to this order with description FibroScan. * Result Encounter Note - Spencer Ferguson NP - 07/01/2025 9:16 AM EST Advise pt that his fibroscan showed moderate stiffness and should be evaluated every one to two years. * Result Encounter Note - Traci Ludwig LPN - 06/28/2025 2:02 PM EST notified of results * Result Encounter Note - Spencer Ferguson NP - 06/28/2025 11:34 AM EST Advise negative LDCT. Repeat in one year. * Result Encounter Note - Jose Barcenas MA - 06/17/2025 3:57 PM EST Patient informed of the below information.Fibro scan ordered * Result Encounter Note - Spencer Ferguson NP - 06/17/2025 3:24 PM EST Advise pt that his CBC didn't show anemia, but his platelets were 145 which is his baseline. Liver functions normal. I calculated his fib 4 score and we did talk about fatty liver yesterday. His score was 3.33 and we will order a fibroscan to measure liver stiffness. He needs to let me know about back pain after a few weeks in therapy. documented in this encounter Plan of Treatment DateTypeDepartmentCare Team (Latest Contact Info)Dmlcwzllzcj10/17/2025 4:00 PM ESTOffice Visit [facility] [place] [facility] [address] [place] [address] 09/02/2025 10:00 AM ESTOffice Visit [facility] [place] [facility] [address] [place] [address] documented as of this encounter Procedures Procedure NamePriorityDate/TimeAssociated DiagnosisCommentsFIBROSCANRoutine 06/29/2025 1:11 PM EST Fatty liver documented in this encounter Results * FIBROSCAN (06/29/2025 1:11 PM EST) Narrative Authorizing ProviderResult TypeResult StatusRobert Lida Chappell MDIMG XR PROCEDURES Final ResultPerforming OrganizationAddressCity/State/ZIP CodePhone Number [facility] [address] [place] [address], documented in this encounter Visit Diagnoses Diagnosis Fatty liver Other chronic nonalcoholic liver disease documented in this encounter Additional Health Concerns AssessmentNoted TimePHQ-9 Depression Total Score: 6:27 PM EST documented as of this encounter Care Teams Team MemberRelationshipSpecialtyStart DateEnd Date Rian Chappell MD [address] [place] [address] PCP - GeneralInternal Medicine04/21/25documented as of this encounter
--- OUTSIDE RECORDS SUMMARY | 2025-07-04 09:42 | XMS_ITS | Encounter Summary ---
Author Organization [facility] Address [address] [place] [address] Care Team Providers Care Traffic Controller Cable Name Role Phone Rian Chappell MD Primary Care Provider [phone] Encounter Details DateTypeDepartmentCare Team (Latest Contact Info)Nveszbkksig74/14/2025Travel Social History Tobacco UseTypesPacks/DayYears UsedDateSmoking Tobacco: FormerCigarettes0.315 [...] drinks on one occasion?Never02/12/2024HQ-2AnswerDate RecordedPatient Health Questionnaire-2 [id number] and Gender InformationValueDate RecordedSex Assigned at BirthNot on fileLegal OswCowp4410/24/2022 6:54 PM EDTGender IdentityNot on file Sexual OrientationNot on fileOccupationIndustryJob Start DateJob End DateRetired Not on fileNot on fileNot on filedocumented as of this encounter Plan of Treatment DateTypeDepartmentCare Team (Latest Contact Info)Aimlatojrcm76/17/2025 4:00 PM ESTOffice Visit [facility] [place] [facility] [address] [place] [address] 09/02/2025 10:00 AM ESTOffice Visit [facility] [address] [place] [address] documented as of this encounter Visit Diagnoses Not on filedocumented in this encounter Additional Health Concerns AssessmentNoted TimePHQ-9 Depression Total Score: 6:27 PM EST documented as of this encounter Care Teams Team MemberRelationshipSpecialtyStart DateEnd Date Rian Chappell MD [address] [place] [address] PCP - GeneralInternal Medicine04/21/25documented as of this encounter
--- OUTSIDE RECORDS SUMMARY | 2025-07-04 09:42 | XMS_ITS | Clinical Summary ---
Author Organization [facility] Healthcare Address [address] [place] [address] Care Team Providers Care Fur Feeder Name Role Phone Rian Chappell MD Primary Care Provider [phone] Allergies Active AllergyReactionsCriticalityNoted DateCommentsAtorvastatinUnknown 12/28/2020 Other Reaction(s): Muscle pain, Myalgia Kbbnoaowglsz71/19/2021 Other Reaction(s): Muscle pain, Myalgia, Unknown, Unknown Kcnxeigfkxp51/19/2021 Other Reaction(s): Unknown, Unknown, Unknown Binvccjoi77/19/2021 Other Reaction(s): Muscle pain, Myalgia, Unknown, Unknown Other Reaction(s): Myalgia Injepzoehaf33/19/2021 Other Reaction(s): Muscle pain, Myalgia, Unknown, Unknown EufbvlffhlBqzqg25/22/4517CbeuembnLenhw32/22/7889GzcferjeubCfxxrvg82/19/2021 Iungwebcjxw80/19/2021 Other Reaction(s): Muscle pain, Myalgia, Unknown, Unknown Medications MedicationSigDispense QuantityRefillsLast FilledStart DateEnd DateStatus aspirin 81 MG EC tablet Take 81 mg by mouth 1 (one) time each day at the same timeActive Multiple Vitamins-Minerals (CENTRUM ADULTS PO) Take by mouthActive valsartan (Diovan) 160 MG tablet Indications:Primary hypertensionTake 1 tablet (160 mg) by mouth at bedtime 90 tablet 5Active tamsulosin (Flomax) 0.4 MG 24 hr capsule Indications:Benign prostatic hyperplasia without lower urinary tract symptoms Take 1 capsule (0.4 mg) by mouth at bedtime 90 capsule 5Active Semaglutide, 2 MG/DOSE, 8 MG/3ML solution pen-injector Indications:Type 2 diabetes mellitus with other specified complication, without long-term current use of insulin (HCC)Inject 2 mg under the skin 1 (one) time per week 9 mL 5Active rosuvastatin (Crestor) 40 MG tablet Indications:Mixed hyperlipidemiaTake 1 tablet (40 mg) by mouth at bedtime 90 tablet 5Active potassium citrate CR (Urocit-K-15) 15 mEq ER tablet Indications:Primary hypertensionTake 1 tablet (15 mEq) by mouth in the morning and 1 tablet (15 mEq) in the evening. Take with meals. 180 tablet 5Active doxazosin (Cardura) 4 MG tablet Indications:Benign prostatic hyperplasia without lower urinary tract symptoms Take 1 tablet (4 mg) by mouth at bedtime 90 tablet 5Active ezetimibe (Zetia) 10 MG tablet Indications:Mixed hyperlipidemiaTake 1 tablet (10 mg) by mouth at bedtime 90 tablet 5Active albuterol HFA 90 mcg/act inhaler Indications:Shortness of breath,[place] (dyspnea on exertion)INHALE 2 INHALATIONS BY MOUTH EVERY 4 HOURS IF NEEDED FOR WHEEZING 34 g 5Active guaiFENesin-codeine (Robitussin-AC) 100-10 MG/5ML syrup Indications:Lower respiratory infection,Acute coughTake 5-10 mL by mouth 3 (three) times a day as needed for cough 200 mL DiscontinuedHospital, Clinic, or Other Facility Administered MedicationOrdered DoseRouteFrequencyStart DateEnd DateStatus triamcinolone acetonide (Kenalog-40) injection 40 mg Indications:Pain of left hip40 wgUCBgrh65/15/2025Active Active Problems ProblemNoted DateDiagnosed DateKidney xxbilo0102/23/2025Low serum total protein level02/23/2025lood donor02/23/20251268Yzbggc00/15/2025hronic right shoulder pain 10/28/2024Type 2 diabetes mellitus, without long-term current use of insulin 07/12/2023PH (benign prostatic hyperplasia)02/04/2023AD (coronary artery disease)02/04/2023HTN (hypertension)02/04/2023Mixed lgsqqrdjceeagp01/26/2023 Jjjmvefzvczrpwwa69/26/2023 Resolved Problems ProblemNoted DateDiagnosed DateResolved DateTrochanteric bursitis of left hip /Orthostatic egpvymxmwdj76Lightheadedness Quit using tobacco in remote past/08/2023 Prostate cancer npnbldwzo00Medicare annual wellness visit, lloedonqjs81CP (advance care planning) Screening for lung zierfg85OE (dyspnea on exertion)02/08/2023 09/30/2023IFG (impaired fasting glucose)/10/2023 Encounters DateTypeDepartmentCare QehgNyfiidqcunm61/19/2025Telephone [facility] [address] [facility] [address] [place] [address] Gerri Borrego, CUSTOMER SERVICE SALES ASSOCIATE PT Status good06/28/2025 10:00 AM ESTTreatment [facility] [address] [facility] [address] [place] [address] Lauren Calix, CUSTOMER SERVICE SALES ASSOCIATE Bilateral low back pain without sciatica, unspecified chronicity (Primary Dx); DJD (degenerative joint disease), lumbosacral; Spondylolisthesis at L4-L5 level06/28/2025amboo flowsheet [facility] [address] [facility] [address] [place] [address] Lauren Calix, CUSTOMER SERVICE SALES ASSOCIATE 06/28/20258763Rvsmbh30/14/2025 10:00 AM ESTEvaluation [facility] [address] [facility] [address] [place] [address] Kamilah Monroe, PT Bilateral low back pain without sciatica, unspecified chronicity (Primary Dx); DJD (degenerative joint disease), lumbosacral; Spondylolisthesis at L4-L5 level06/25/2025Plan of Care Documentation [facility] [address] [facility] [address] [place] [address] 06/25/2025amboo flowsheet [facility] [address] [facility] [address] [place] [address] Kamilah Monroe, PT 06/25/20255702Oiwpfj55/12/2025 1:30 PM ESTAncillary Procedure [facility] [address] [place] [address] Encounter for screening for lung aoycgd7906/23/20253851Fjhvcq45/07/2025Travel 06/17/2025Results Follow-Up [facility] [place] [facility] [address] [facility] [address] [place] [address] Spencer Ferguson, INSTALLMENT AGENT CBC and differential, Basic metabolic panel, Hepatic function panel, Additional followed-up results: 4:00 PM ESTOffice Visit [facility] [address] [facility] [address] [place] [address] Spencer Ferguson, INSTALLMENT AGENT Bilateral low back pain without sciatica, unspecified chronicity (Primary Dx); DJD (degenerative joint disease), lumbosacral; Spondylolisthesis at L4-L5 level; Adrenal adenoma, right; Metabolic dysfunction-associated steatotic liver disease (MASLD); Encounter for screening for lung ibrtcx5006/16/20254964Iqumbf12/16/2025 3:00 PM EDT Ancillary Procedure [facility] [address] [facility] [address] [place] [address] Acute cough04/27/2025 2:30 PM EDTOffice Visit [facility] [address] [facility] [address] [place] [address] Mary Hedrick, INSTALLMENT AGENT Acute cough (Primary Dx); Lower respiratory infection; Shortness of sjuwpj1804/27/2025Results Follow-Up [facility] [address] [place] [address] Mary Hedrick, INSTALLMENT AGENT XR chest 2 views, BRONCHITIS(HTRX)04/27/20258826Sezcux16/10/2025 2:30 PM EDTOffice Visit [facility] [address] [place] [address] Mary Hedrick, INSTALLMENT AGENT Lower respiratory infection (Primary Dx); Acute cough04/21/20256305Gzwkry46/09/2025Refill [facility] [address] [place] [address] Chris King DO Shortness of breath; [place] (dyspnea on exertion)from Last 3 Months Immunizations ImmunizationAdministration DatesNext DueInfluenza Whole04/12/2014,05/12/2013 Influenza, Seasonal, Quadrivalent, Qbzxypnifq94/20/2023,04/27/2021Influenza, Exyzdqpybsm30/20/2023,04/27/2021,06/10/2020,04/27/2020,04/23/2019,05/15/2018, 05/07/2017,05/08/2016,05/23/2015Influenza, trivalent, brbjgvubhj00/24/2024Pfizer Purple Cap SARS-CoV-2 Gsqivumuvgy48/27/2023Pneumococcal Conjugate PCV 20 08/25/2024Pneumococcal Polysaccharide BPSZ2647,04/12/2014,04/12/2007 Zoster, Udrsrquidlt98/13/2020,10/14/2019Zoster, live07/15/2009 Family History Medical HistoryRelationNameCommentsHeart diseaseFatherDadHypertensionFatherDad CancerMotherMomHeart diseaseMotherMomHypertensionMotherMomStrokeMotherMomBreast cancerNeg HxColon cancerNeg HxOvarian cancerNeg HxPancreatic cancerNeg Hx KuxfacwvIhneButhndApwdnwznVmydkuv5FnocrAstipebnJqccqXgteerSfmHwhxsrkcClgygbUdb YcqiufdxOrgxny5KcehpCyxKwjcv Social History Tobacco UseTypesPacks/DayYears UsedDateSmoking Tobacco: FormerCigarettes0.315 08/12/1954 - 08/12/1969Passive Smoke Exposure: NeverSmokeless Tobacco: Never Tobacco Cessation:Counseling Given: Not Answered Alcohol UseStandard Drinks/WeekCommentsYes4 (1 standard drink = 0.6 oz pure alcohol)Caffeine: iced tea occasionallyAUDIT-CAnswerDate RecordedQ1: How often do you have a drink containing alcohol?4 or more times a week02/12/2024Q2: How many drinks containing alcohol do you have on a typical day when you are drinking?1 or Q3: How often do you have six or more drinks on one occasion?Never02/12/2024HQ-2AnswerDate RecordedPatient Health Questionnaire-2 Dykhi284Sex and Gender InformationValueDate RecordedSex Assigned at BirthNot on fileLegal CdfVkdd3810/24/2022 6:54 PM EDTGender IdentityNot on file Sexual OrientationNot on fileOccupationIndustryJob Start DateJob End DateRetired Not on fileNot on fileNot on file Last Filed Vital Signs Vital SignReadingTime TakenCommentsBlood Webgvyrd883/8606/16/2025 3:43 PM EST Zuunl388506/16/2025 3:43 PM QVILtedbfiioqe22.4 ??C (99.3 ??F)04/21/2025 3:00 PM EDTRespiratory Ilfe962004/27/2025 2:53 PM EDTOxygen Rjqjzyiqng75%06/16/2025 3:43 PM ESTInhaled Oxygen Concentration--Fjnbjt90.2 kg (212 lb)06/16/2025 3:43 PM EST Yrmrjv358 cm (6' 2 )06/16/2025 3:43 PM ESTBody Mass Index27.22108/16/2024 3:43 PM EST Plan of Treatment DateTypeDepartmentCare Team (Latest Contact Info)Esrfiefvxxq15/17/2025 4:00 PM ESTOffice Visit [facility] [address] [place] [address] 09/02/2025 10:00 AM ESTOffice Visit [facility] [place] [facility] [address] [place] [address] Health MaintenanceDue DateLast DoneCommentsDiabetes: Retinopathy Screening 1956Diabetes: Hemoglobin A1C, 08/18/2024, 05/12/2024, Additional history existsCOVID-19 Vaccine ( season)2025 06/18/2025, 06/07/2023, 06/07/2023, Additional history existsMedicare Annual Wellness (AWV)Diabetes: Urine Protein Psngpilrd20/08/2026 02/16/2025, 02/04/2024, 01/28/2023, Additional history existsInfluenza Vaccine Czsfyuajk32/20/2025, 05/05/2024, 05/01/2023, Additional history exists Pneumococcal Vaccine: 65+ DncsdUftjtielk63/20/2025, 08/25/2024, 04/19/2015, Additional history exists Procedures Procedure NamePriorityDate/TimeAssociated DiagnosisCommentsFIBROSCANRoutine 06/29/2025 1:11 PM EST Fatty liver CT LUNG SCREENING LOW XWIWHxkifas48/12/2025 2:19 PM EST Encounter for screening for lung cancer HEPATIC FUNCTION DBWSFOkniiky69/05/2025 4:52 PM EST Metabolic dysfunction-associated steatotic liver disease (MASLD) BASIC METABOLIC YVLJDXnuucik66/05/2025 4:52 PM EST Metabolic dysfunction-associated steatotic liver disease (MASLD) CBC (INCLUDES DIFF/PLT)Krzfhwy2706/16/2025 4:52 PM EST Metabolic dysfunction-associated steatotic liver disease (MASLD) BRONCHITIS(HTRX)Bmzgufc6604/27/2025 3:03 PM EDT Acute cough Lower respiratory infection Shortness of breath XR CHEST 2 MJSLWPJQY88/16/2025 3:00 PM EDT Acute cough STATUS COVID-19/DUYXpauula14/10/2025 2:56 PM EDT Acute cough MICROALBUMIN / CREATININE URINE GCMDWHrabmdi85/08/2025 11:26 AM EDT Type 2 diabetes mellitus with other specified complication, without long-term current use of insulin (HCC) Primary hypertension HEMOGLOBIN A1C WITH OBLUvyqxup70/08/2025 11:25 AM EDT Type 2 diabetes mellitus with other specified complication, without long-term current use of insulin (HCC) from Last 3 Months or Most Recently Relevant to Health Maintenance Results * FIBROSCAN (06/29/2025 1:11 PM EST) Narrative Authorizing ProviderResult TypeResult StatusRobestela Chappell MDIMG XR PROCEDURES Final ResultPerforming OrganizationAddressCity/State/ZIP CodePhone Number [address] [address], * CT lung screening low dose (06/23/2025 [...] BY: Simeon Melendez MD Authorizing ProviderResult TypeResult StatusMichele L Marty NPIMG CT PROCEDURES Final Result * (ABNORMAL) CBC and differential (06/16/2025 4:52 PM EST)ComponentValueRef RangeTest MethodAnalysis TimePerformed AtPathologist SignatureWBC4.93.4 - 10.8 x10E3/uLLABCORPRBC5.114.14 - 5.80 x10E6/dVXOQVWYQVmq85.913.0 - 17.7 g/dL VTLCZJKEhq94.437.5 - 51.0 %EPQEVQVMIK1740 - 97 tGGESWVUWPQF35.126.6 - 33.0 pg YITVFRIGVHG07.531.5 - 35.7 g/nRNYBAZAJKEF23.411.6 - 15.4 %PRHWAKUFtggcxucs553 (L)150 - 450 x10E3/jFZPHIBZDTfiltxijjsz14Xvm Estab. %KXMASPWIrsaic91Wrh Estab. %KYMJUOPEuolactbi39Jrq Estab. %CZUXSBGYtb0Vmy Estab. %QUMGGLXCrrwc3Wug Estab. %LABCORPNeutrophils Abs2.81.4 - 7.0 x10E3/uLLABCORPLymphs Abs1.40.7 - 3.1 x10E3/uLLABCORPMonocytesAbs0.60.1 - 0.9 x10E3/uLLABCORPEos Abs0.00.0 - 0.4 x10E3/uLLABCORPBaso Abs0.00.0 - 0.2 x10E3/uLLABCORPImmature Chpldptjepsr2Jrq Estab. %LABCORPImmature Grans Abs0.00.0 - 0.1 x10E3/uLLABCORPSpecimen (Source) Anatomical Location / LateralityCollection Method / VolumeCollection Time Received TimeBloodVenous blood specimen / Ylfpvdx9906/16/2025 4:52 PM EST 06/16/2025 Narrative [facility] - 06/17/2025 6:07 AM EST Performed at: 01 - [address], [place], [place] [id number] Oyster Opener: Rc Chavez PhD, Phone: ??[phone] Authorizing ProviderResult TypeResult StatusMichele L Marty NPLAB BLOOD ORDERABLESFinal ResultPerforming OrganizationAddressCity/State/ZIP CodePhone Number [facility] * (ABNORMAL) Hepatic function panel (06/16/2025 4:52 PM EST)ComponentValueRef RangeTest MethodAnalysis TimePerformed AtPathologist SignatureProtein Total6.1 6.0 - 8.5 g/dLLABCORPAlbumin4.23.8 - 4.8 g/dLLABCORPBili Total1.3(H)0.0 - 1.2 mg/dLLABCORPBilirubin, Direct0.390.00 - 0.40 mg/dLLABCORPAlk Esslyfrznei7603 - 123 IU/EETVKEFTRPO710 - 40 IU/ABFMNKXHHEW295 - 44 IU/LLABCORPSpecimen (Source) Anatomical Location / LateralityCollection Method / VolumeCollection Time Received TimeBloodVenous blood specimen / Eizqrrp2406/16/2025 4:52 PM EST 06/16/2025 Narrative [facility] - 06/17/2025 6:07 AM EST Performed at: - [address] ??[id number] Oyster Opener: Rc Chavez PhD, Phone: ??[phone] Authorizing ProviderResult TypeResult StatusMichele Lida Ferguson NPLAB BLOOD ORDERABLESFinal ResultPerforming OrganizationAddressCity/State/ZIP CodePhone Number [facility] * Basic metabolic panel (06/16/2025 4:52 PM EST)ComponentValueRef RangeTest MethodAnalysis TimePerformed AtPathologist MuucblpovAddpbnn5143 - 99 mg/dL XTSAELRTJK101 - 27 mg/dLLABCORPCreat0.900.76 - 1.27 mg/bJKEQKHWINSXM36>59 mL/min/1.73[facility]ABC[facility]PBUN/Creat Sofpx2706 - 86NJYEITXAmusgl723466 - 144 mmol/L [facility]PPotassium4.53.5 - 5.2 mmol/AVKZNBXWPmfjrmmn78309 - 106 mmol/[facility] Carbon Stmqkde5394 - 29 mmol/LLABCORPCalcium9.28.6 - 10.2 mg/dLLABCORPSpecimen (Source)Anatomical Location / LateralityCollection Method / VolumeCollection TimeReceived TimeBloodVenous blood specimen / Apkzwzi5906/16/2025 4:52 PM EST 06/16/2025 Narrative [facility] - 06/17/2025 6:07 AM EST Performed at: - [facility] [address], [place], [place] ??[id number] Oyster Opener: Rc Chavez PhD, Phone: ??[phone] Authorizing ProviderResult TypeResult StatusMicmorenita Ferguson NPLAB BLOOD ORDERABLESFinal ResultPerforming OrganizationAddressCity/State/ZIP CodePhone Number [facility] * (ABNORMAL) BRONCHITIS(HTRX) (04/27/2025 3:03 PM EDT)ComponentValueRef Range Test MethodAnalysis TimePerformed AtPathologist SignatureCOVID-19 CORONAVIRUS (SARS-COV-2)023.000 - 31.947 ppm04/28/2025 7:42 AM EDTHEALTHTRACKRXCOVID-19 CORONAVIRUS (SARS-COV-2)Not Yywamulf35.000 - 31.947 ppm04/28/2025 7:42 AM EDT HEALTHTRACKRXENTEROVIRUS M84483.000 - 32.268 ppm04/28/2025 7:42 AM EDT HEALTHTRACKRXENTEROVIRUS D68Not Glygohtt17.000 - 32.268 ppm04/28/2025 7:42 AM EDTHEALTHTRACKRXHAEMOPHILUS SUVFEIQWPL991.961 - 24.689 ppm04/28/2025 7:42 AM EDTHEALTHTRACKRXHAEMOPHILUS INFLUENZAENot Hjexqhqp37.961 - 24.689 ppm 04/28/2025 7:42 AM EDTHEALTHTRACKRXHUMAN VZRLIBJBKJOCBOL493.000 - 33.630 ppm 04/28/2025 7:42 AM EDTHEALTHTRACKRXHUMAN METAPNEUMOVIRUSNot Wbkutndp81.000 - 33.630 ppm04/28/2025 7:42 AM EDTHEALTHTRACKRXINFLUENZA VIRUS A, B023.000 - 29.803 ppm04/28/2025 7:42 AM EDTHEALTHTRACKRXINFLUENZA VIRUS A, BNot Detected 23.000 - 29.803 ppm04/28/2025 7:42 AM EDTHEALTHTRACKRXMORAXELLA CATARRHALIS0 19.961 - 24.689 ppm04/28/2025 7:42 AM EDTHEALTHTRACKRXMORAXELLA CATARRHALISNot Lpepvgml51.961 - 24.689 ppm04/28/2025 7:42 AM EDTHEALTHTRACKRXMYCOPLASMA RDXDKHAIFB104.961 - 24.689 ppm04/28/2025 7:42 AM EDTHEALTHTRACKRXMYCOPLASMA PNEUMONIAENot Gbtwztlt38.961 - 24.689 ppm04/28/2025 7:42 AM EDTHEALTHTRACKRX PARAINFLUENZA VIRUS (TYPES 1, 2, 3, 4)25.1(A)23.000 - 31.487 ppm04/28/2025 7:42 AM EDTHEALTHTRACKRXPARAINFLUENZA VIRUS (TYPES 1, 2, 3, 4)Detected(A) 23.000 - 31.487 ppm04/28/2025 7:42 AM EDTHEALTHTRACKRXRESPIRATORY SYNCYTIAL RCSRP858.000 - 31.953 ppm04/28/2025 7:42 AM EDTHEALTHTRACKRXRESPIRATORY SYNCYTIAL VIRUSNot Rxjxdomp20.000 - 31.953 ppm04/28/2025 7:42 AM EDT HEALTHTRACKRXSTREPTOCOCCUS ZTJCUQLVOP359.961 - 24.689 ppm04/28/2025 7:42 AM EDTHEALTHTRACKRXSTREPTOCOCCUS PNEUMONIAENot Acqshwpk70.961 - 24.689 ppm 04/28/2025 7:42 AM EDTHEALTHTRACKRXCHLAMYDIA TIEOISUMWF282.961 - 24.689 ppm 04/28/2025 7:42 AM EDTHEALTHTRACKRXCHLAMYDIA PNEUMONIAENot Uxywsujg07.961 - 24.689 ppm04/28/2025 7:42 AM EDTHEALTHTRACKRXBORDETELLA PERTUSSIS, PARAPERTUSIS, ZPVWMTXOZTUXPT768.961 - 24.689 ppm04/28/2025 7:42 AM EDT HEALTHTRACKRXBORDETELLA PERTUSSIS, PARAPERTUSIS, BRONCHISEPTICANot Detected 19.961 - 24.689 ppm04/28/2025 7:42 AM EDTHEALTHTRACKRXCORONAVIRUS (NL63, OC43, AND HKU1)023.000 - 30.477 ppm04/28/2025 7:42 AM EDTHEALTHTRACKRXCORONAVIRUS (NL63, OC43, AND HKU1)Not Deotpdnj86.000 - 30.477 ppm04/28/2025 7:42 AM EDT HEALTHTRACKRXRHINOVIRUS-NVJMOVHSRBE684.000 - 30.000 ppm04/28/2025 7:42 AM EDT HEALTHTRACKRXRHINOVIRUS-ENTEROVIRUSNot Mtsybsvm39.000 - 30.000 ppm04/28/2025 7:42 AM EDTHEALTHTRACKRXADENOVIRUS HADV-B023.000 - 31.833 ppm04/28/2025 7:42 AM EDTHEALTHTRACKRXADENOVIRUS HADV-BNot Kvfwtycj08.000 - 31.833 ppm04/28/2025 7:42 AM EDTHEALTHTRACKRXSpecimen (Source)Anatomical Location / Laterality Collection Method / VolumeCollection TimeReceived ThyoVdwcsmcin15/16/2025 3:03 PM EDT04/28/2025 2:11 AM EDT Narrative Authorizing ProviderResult TypeResult StatusJessica L Didion NPLAB BLOOD ORDERABLESFinal ResultPerforming OrganizationAddressCity/State/ZIP CodePhone Number [facility] * XR chest 2 views (04/27/2025 3:00 PM EDT)Anatomical RegionLateralityModality ChestRadiographic ImagingSpecimen (Source)Anatomical Location / Laterality Collection Method / VolumeCollection TimeReceived Time04/27/2025 3:02 PM EDT Impressions 04/27/2025 3:03 PM EDT No acute radiographic findings. ELECTRONICALLY SIGNED BY: Simeon Melendez MD Narrative 04/27/2025 3:03 PM EDT EXAMINATION/TECHNIQUE: XR CHEST 2 VIEWS HISTORY: Cough. COMPARISON: 10/12/2023. RESULT: No consolidation. No pleural effusion. No pneumothorax. Chronic elevation right hemidiaphragm, unchanged. Stable cardiomediastinal silhouette. No acute osseous findings. ?? Procedure Note Simeon Melendez MD - 04/27/2025 EXAMINATION/TECHNIQUE: XR CHEST 2 VIEWS HISTORY: Cough. COMPARISON: 10/12/2023. RESULT: No consolidation. No pleural effusion. No pneumothorax. Chronic elevationright hemidiaphragm, unchanged. Stable cardiomediastinal silhouette. Noacute osseous findings. IMPRESSION: No acute radiographic findings. ELECTRONICALLY SIGNED BY: Simeon Melendez MD Authorizing ProviderResult TypeResult StatusMary Hilton Didion NPIMG XR PROCEDURES Final Result * STATUS COVID-19/FLU (04/21/2025 2:56 PM EDT)ComponentValueRef RangeTest Method Analysis TimePerformed AtPathologist SignatureFLU ANegativeFLU BNegativeSARS COV 2 RNANegativeSpecimen (Source)Anatomical Location / LateralityCollection Method / VolumeCollection TimeReceived FffpIwuwa46/10/2025 2:56 PM EDT Narrative Authorizing ProviderResult TypeResult StatusMary Edgeion NPPOINT OF CARE TEST ENTER/EDIT ORDERABLESFinal Result * Microalbumin / creatinine urine ratio (02/16/2025 11:26 AM EDT)ComponentValue Ref RangeTest MethodAnalysis TimePerformed AtPathologist Signature MICROALBUMIN, URINE1.20.0 - 1.8 mg/dL02/16/2025 12:45 PM [facility] CtrCREATININE, URINE (RANDOM)167.00mg/dL02/16/2025 12:45 PM EDT [facility] CtrComment:No reference range established MICROALBUMIN/CREATININE RATIO7.20.0 - 30.0 mg/g002/16/2025 12:45 PM T [facility] CtrComment: 30-300 mg/g indicates an increased risk for diabetic nephropathy. ??Greater than 300 mg/g is consistent with clinical nephropathy. ??(Am. J. Kidney Disease 1995, 25:107) Specimen (Source)Anatomical Location / LateralityCollection Method / Volume Collection TimeReceived TimeOtherUrine specimen obtained by clean catch procedure / Ntvlomz6202/16/2025 11:26 AM EDT02/16/2025 11:26 AM EDT Narrative Authorizing ProviderResult TypeResult StatusMicmorenita Ferguson NPLAB URINE ORDERABLESFinal ResultPerforming OrganizationAddressCity/State/ZIP CodePhone Number [facility]END[facility] [address] [address], [facility] [address] [facility] [place] [address] * Hemoglobin a1c with eag (02/16/2025 11:25 AM EDT)ComponentValueRef RangeTest MethodAnalysis TimePerformed AtPathologist SignatureHEMOGLOBIN A1C5.64.3 - 5.6 %02/16/2025 12:22 PM [facility] CtrComment: Increased risk for diabetes: 5.7 - 6.4 diabetes: >6.4 glycemic control for adults with diabetes: <7.0 ESTIMATED AVERAGE DAQKLCY116zr/dL02/16/2025 12:22 PM [facility] CtrSpecimen (Source)Anatomical Location / LateralityCollection Method / VolumeCollection TimeReceived TimeBlood (Blood)02/16/2025 11:25 AM EDT02/16/2025 11:25 AM EDT Narrative Authorizing ProviderResult TypeResult StatusMichelward Ferguson NPLAB BLOOD ORDERABLESFinal ResultPerforming OrganizationAddressCity/State/ZIP CodePhone Number [facility] [address] [place] [address], [facility] [address] [place] [address] from Last 3 Months or Most Recently Relevant to Health Maintenance Insurance Care Teams Team MemberRelationshipSpecialtyStart DateEnd Rian Chappell MD [address] [address] PCP - GeneralInternal Medicine04/21/25
--- OUTSIDE RECORDS SUMMARY | 2025-07-04 09:42 | XMS_ITS | Encounter Summary ---
Author Organization [facility] Address [address] [place] [address] Care Team Providers Care Inside Sales Administrator Name Role Phone Rian Chappell MD Primary Care Provider [phone] Encounter Details DateTypeDepartmentCare Team (Latest Contact Info)Udifwvothdq54/17/2025amboo flowsheet [facility] [address] [place] [address] Lauren Calix, [place] Social History Tobacco UseTypesPacks/DayYears UsedDateSmoking Tobacco: FormerCigarettes0.315 [...] drinks on one occasion?Never02/12/2024HQ-2AnswerDate RecordedPatient Health Questionnaire-2 Vsshr505Sex and Gender InformationValueDate RecordedSex Assigned at BirthNot on fileLegal BhyYpvc9410/24/2022 6:54 PM EDTGender IdentityNot on file Sexual OrientationNot on fileOccupationIndustryJob Start DateJob End DateRetired Not on fileNot on fileNot on filedocumented as of this encounter Plan of Treatment DateTypeDepartmentCare Team (Latest Contact Info)Wybptwuggqo09/17/2025 4:00 PM ESTOffice Visit [facility] [place] [facility] [address] [facility] [address] [place] [address] 09/02/2025 10:00 AM ESTOffice Visit [facility] [place] [facility] [address] [facility] [address] [place] [address] documented as of this encounter Visit Diagnoses Not on filedocumented in this encounter Additional Health Concerns AssessmentNoted TimePHQ-9 Depression Total Score: 6:27 PM EST documented as of this encounter Care Teams Team MemberRelationshipSpecialtyStart DateEnd Date Rian Chappell MD [address] [facility] [address] [place] [address] PCP - GeneralInternal Medicine04/21/25documented as of this encounter
--- OUTSIDE RECORDS SUMMARY | 2025-07-04 09:42 | XMS_ITS | Encounter Summary ---
Author Organization [facility] Address [address] [facility] [place] [address] Care Team Providers Care Veneer Stock Layer Name Role Phone Rian Chappell MD Primary Care Provider [phone] Encounter Details DateTypeDepartmentCare Team (Latest Contact Info)Jrgpkycpzhy91/14/2025amboo flowsheet [facility] [address] [place] [address] Kamilah Monroe, HERBERTH Social History Tobacco UseTypesPacks/DayYears UsedDateSmoking Tobacco: FormerCigarettes0.315 [...] drinks on one occasion?Never02/12/2024HQ-2AnswerDate RecordedPatient Health Questionnaire-2 Ljcgj320Sex and Gender InformationValueDate RecordedSex Assigned at BirthNot on fileLegal FfjAcvv9610/24/2022 6:54 PM EDTGender IdentityNot on file Sexual OrientationNot on fileOccupationIndustryJob Start DateJob End DateRetired Not on fileNot on fileNot on filedocumented as of this encounter Plan of Treatment DateTypeDepartmentCare Team (Latest Contact Info)Razyabgfyca21/17/2025 4:00 PM ESTOffice Visit [facility] [address] [address] [address] [place] [address] 09/02/2025 10:00 AM ESTOffice Visit [facility] [address] [facility] [address] [place] [address] documented as of this encounter Visit Diagnoses Not on filedocumented in this encounter Additional Health Concerns AssessmentNoted TimePHQ-9 Depression Total Score: 6:27 PM EST documented as of this encounter Care Teams Team MemberRelationshipSpecialtyStart DateEnd Date Rian Chappell MD [address] [facility] [address] [place] [address] PCP - GeneralInternal Medicine04/21/25documented as of this encounter
--- OUTSIDE RECORDS SUMMARY | 2025-07-04 09:42 | XMS_ITS | Clinical Summary ---
Author Organization [facility] Address [address] [place] [address] Care Team Providers Care Medical Data Entry Clerk Name Role Phone Unavailable Primary Care Provider Unavailabl e Allergies Active AllergyReactionsCriticalityNoted DateCommentsAtorvastatinMyalgia,Unknown 12/28/2020erivastatinMyalgia,Dppvqan0912/28/20201139HdlaoxzqbbpYdktnfn56/19/2021 EzetimibeMyalgia,Llvgchc4112/28/2020FluvastatinMyalgia,Xdpcswm6612/28/2020Metaxalone Itbgwjb5312/28/2020easonal AllergiesOther: See Fnfcrsld52/19/2021imvastatin Myalgia,Cnlofxm5712/28/2020 Medications MedicationSigDispense QuantityRefillsLast FilledStart DateEnd DateStatus amLODIPine (NORVASC) 5 mg tablet Take 1 tablet by mouth once daily.05/01/2019Active bisoprolol-hydroCHLOROthiazide (ZIAC) 10-6.25 mg per tablet Take 1 tablet by mouth once daily.05/01/2019Active amoxicillin (AMOXIL) 875 mg tablet Take 1 tablet by mouth once daily.10/02/2021ctive clarithromycin (BIAXIN) 500 mg Take 1 tablet by mouth once daily.11/20/2021ctive isosorbide mononitrate ER (IMDUR) 30 mg 24 hr tablet Take 1 tablet by mouth every morning.05/01/2019Active lisinopril (ZESTRIL, PRINIVIL) 10 mg tablet Take 1 tablet by mouth once daily.05/01/2019Active niacin 500 mg CR capsule Take 500 mg by mouth once daily.05/01/2019Active tamsulosin (FLOMAX) 0.4 mg Take 0.4 mg by mouth once daily.04/23/2022ctive rosuvastatin (CRESTOR) 20 mg tablet Take 20 mg by mouth once daily.05/01/2019Active predniSONE (DELTASONE) 20 mg tablet Take 1 tablet by mouth once daily.10/02/2021ctive keTORolac (ACULAR) 0.5 % ophthalmic solution Use 1 Drop in the left eye twice daily. 4 mL 07/20/2022ctive Active Problems ProblemNoted DateDiagnosed DateLow tension glaucoma of left eye, indeterminate stage06/12/2022Glaucoma suspect of right eye06/12/2022ensation of pressure in bladder area06/01/2022llergic hrsbotik53/21/2022hronic frontal sinusitis 06/01/20229153Mbyngwbvcwrj84/21/2022Facial njvneksb11/21/2022Gastrointestinal wpjgujaoct22/21/2022High prostate specific antigen (PSA)06/01/2022Increased frequency of eufnmeugn33/21/2022Nasal lxwsuhxlqs38/21/4155Ftnrkzxy17/21/2022ain in fmbxyovn65/21/9887Hgckgszwfzig43/21/2022etrograde xxyonzizimn06/21/2022 Wvfbngyfhstlsgfu52/21/2022Unspecified asthma, gnjrbkmoodyuz75/22/2022Impaired fasting cqgcobn1501/31/2022ther continuous churn buttermaker (current) drug lhxvtjw5801/31/2022hest pain, xrwishhvpdj17/13/2022hortness of kiddzk8112/22/2021ther abnormal glucose 07/24/2021ocalized, primary osteoarthritis of hand12/13/2020ain in limb 12/13/2020Osteoarthritis of right knee08/14/2019Cervical spondylosis without kgiadxsbwf89/27/2019Seasonal pelxravtc41/14/2019Plantar nerve bmzcyt8911/03/2018 Pure hwzfhmvjxafoqhnjykuw45/14/2018History of asbestos qrslhizl83/26/2017 Atherosclerosis of coronary jrzckb8101/20/2016Benign prostatic hyperplasia with urinary xxrsbvuutqm39/10/2016Kidney stone01/20/2016Angioneurotic edema07/15/2015 Qthuhereubzg23/04/0069Weiukvmyavw58/04/2015 Social History Tobacco UseTypesPacks/DayYears UsedDateSmoking Tobacco: NeverSmokeless Tobacco: Never Tobacco Cessation:Counseling Given: Not Answered Alcohol UseStandard Drinks/WeekCommentsYes0 (1 standard drink = 0.6 oz pure alcohol)Area Deprivation IndexAnswerDate RecordedNational Score (1-100), lower number is lower nmfv769208/31/2022State Score (1-10), lower number is lower risk Not on file3Data from: https://www.neighborhoodatlas.medicine.[facility]/. Last address used for limtl[address] [facility]08/31/2022Sex and Gender InformationValueDate RecordedSex Assigned at BirthNot on fileLegal KorBrtv81/02/2012 8:46 AM EST Gender IdentityNot on fileSexual OrientationNot on file Plan of Treatment Health MaintenanceDue DateLast DoneCommentsAnnual PCP Team Chronic Disease Visit 1964Anxiety Nmfwgwypy41/23/1964Depression Jsoxuwywc41/23/1964LDL Bdoxguiztrl25/23/1964DTaP,Tdap,Td Vaccine (1 - Tdap)1965Diabetes Screening 1991RSV Vaccine (1 - 1-dose 75+ series)2021dvance Directive Rcavihkbye09/01/2025Medicare Advantage Annual Wellness Visit08/12/2024ovid-19 Vaccine ( season), 12/23/2021, 05/19/2021, Additional history existsInfluenza Vaccine (#1), 04/27/2021, 06/10/2020, Additional history existsPneumococcal Vaccine: 50+Completed 04/22/2015, 04/19/2015, 05/12/2014, Additional history existsShingrix Vaccine Dpzfhgqib11/13/2020, 10/14/2019, 07/12/2010, Additional history exists Insurance
--- OUTSIDE RECORDS SUMMARY | 2025-07-04 09:42 | XMS_ITS | Encounter Summary ---
Author Organization [facility] Address [address] [facility] [place] [address] Care Team Providers Care Multiskill Operator Name Role Phone Rian Chappell MD Primary Care Provider [phone] Encounter Details DateTypeDepartmentCare Team (Latest Contact Info)Dpapyrhpotz96/17/2025Travel Social History Tobacco UseTypesPacks/DayYears UsedDateSmoking Tobacco: FormerCigarettes0.315 [...] drinks on one occasion?Never02/12/2024HQ-2AnswerDate RecordedPatient Health Questionnaire-2 Oxccu911Sex and Gender InformationValueDate RecordedSex Assigned at BirthNot on fileLegal UucEzho8010/24/2022 6:54 PM EDTGender IdentityNot on file Sexual OrientationNot on fileOccupationIndustryJob Start DateJob End DateRetired Not on fileNot on fileNot on filedocumented as of this encounter Plan of Treatment DateTypeDepartmentCare Team (Latest Contact Info)Padwlptxtji26/17/2025 4:00 PM ESTOffice Visit [facility] [place] [facility] [address] [place] [address] 09/02/2025 10:00 AM ESTOffice Visit [facility] [address] [place] [address] documented as of this encounter Visit Diagnoses Not on filedocumented in this encounter Additional Health Concerns AssessmentNoted TimePHQ-9 Depression Total Score: 6:27 PM EST documented as of this encounter Care Teams Team MemberRelationshipSpecialtyStart DateEnd Date Rian Chappell MD [address] [facility] [facility] [address] [place] [address] PCP - GeneralInternal Medicine04/21/25documented as of this encounter
--- OUTSIDE RECORDS SUMMARY | 2025-07-04 09:42 | XMS_ITS | Encounter Summary ---
Author Organization [facility] Address [address] [place] [address] Care Team Providers Care Medical Assistant Instructor Name Role Phone Rian Chappell MD Primary Care Provider [phone] Encounter Details DateTypeDepartmentCare Team (Latest Contact Info)Pwqlwjgrrnx18/14/2025Plan of Care Documentation [facility] [address] [facility] [address] [place] [address] Social History Tobacco UseTypesPacks/DayYears UsedDateSmoking Tobacco: FormerCigarettes0.315 [...] drinks on one occasion?Never02/12/2024HQ-2AnswerDate RecordedPatient Health Questionnaire-2 Eitjx810Sex and Gender InformationValueDate RecordedSex Assigned at BirthNot on fileLegal BslSyyr3510/24/2022 6:54 PM EDTGender IdentityNot on file Sexual OrientationNot on fileOccupationIndustryJob Start DateJob End DateRetired Not on fileNot on fileNot on filedocumented as of this encounter Plan of Treatment DateTypeDepartmentCare Team (Latest Contact Info)Zmkmzcsxamh36/17/2025 4:00 PM ESTOffice Visit [facility] [address] [place] [address] 09/02/2025 10:00 AM ESTOffice Visit [facility] [address] [facility] [address] [place] [address] documented as of this encounter Visit Diagnoses Not on filedocumented in this encounter Additional Health Concerns AssessmentNoted TimePHQ-9 Depression Total Score: 6:27 PM EST documented as of this encounter Care Teams Team MemberRelationshipSpecialtyStart DateEnd Date Rian Chappell MD [address] [place] [address] PCP - GeneralInternal Medicine04/21/25documented as of this encounter
--- OUTSIDE RECORDS SUMMARY | 2025-07-04 09:42 | XMS_ITS | Clinical Summary ---
Author Organization [facility] Address [address] [place] [address] Phone Care Team Providers Care Corporation Officer Name Role Phone Fernando, Chris Joya Primary Care Provider [phone] Allergies Active AllergyReactionsCriticalityNoted DateCommentsArb-Angiotensin Receptor DqbkpmsnycAskmr78/18/9428KhrigzkqzxHqdmy81/18/1547Jjbqmfh-Ljd-Bbd Reductase LqzdeuoinlLnwfxtp06/18/8214VwtdvcouoWhoupxj57/18/2024 Medications MedicationSigDispense QuantityRefillsLast FilledStart DateEnd DateStatus aspirin 81 mg EC tablet Take 1 tablet (81 mg) by mouth once daily.Active nitroglycerin (Nitrostat) 0.[address] 1 tablet (0.4 mg) under the tongue every 5 minutes if needed for chest pain.Active potassium citrate CR (Urocit-K-15) 15 mEq ER tablet Take 1 tablet (15 mEq) by mouth 2 times a day.Active tamsulosin (Flomax) 0.4 mg 24 hr capsule Take 1 capsule (0.4 mg) by mouth once daily.Active multivitamin tablet Take 1 tablet by mouth once daily.Active semaglutide 0.25 mg or 0.5 mg (2 mg/3 mL) pen injector Inject under the skin 1 (one) time per week.Active amLODIPine (Norvasc) 5 mg tablet Indications:Essential (primary) hypertensionTake 1 tablet (5 mg) by mouth once daily. 90 tablet ctive doxazosin (Cardura) 4 mg tablet Indications:Essential hypertension,Essential (primary) hypertensionTake 1 tablet (4 mg) by mouth once daily. 90 tablet ctive ezetimibe (Zetia) 10 mg tablet Indications:Mixed hyperlipidemiaTake 1 tablet (10 mg) by mouth once daily. 90 tablet ctive rosuvastatin (Crestor) 40 mg tablet Indications:Mixed hyperlipidemiaTake 1 tablet (40 mg) by mouth once daily. 90 tablet ctive isosorbide mononitrate ER (Imdur) 30 mg 24 hr tablet Indications:Chest pain, unspecified typeTAKE 1 TABLET BY MOUTH ONCE DAILY DO NOT CRUSH OR CHEW 90 tablet 5Active Active Problems ProblemNoted DateDiagnosed DateHistory of kidney kxlqzf0903/16/2024MI 27.0-27.9,adult03/16/2024Former aixodl1003/16/2024CE inhibitor intolerance 03/16/2024RB xemsharfzgi73/05/2024therosclerosis of [place] coronary artery without angina bwyhfrwc74/18/2024hest pain08/29/2023Essential hypertension 08/29/20234672Xvqpmcgkeekfdx69/18/2024Shortness of inevci3008/29/2023 Immunizations ImmunizationAdministration DatesNext DueFlu vaccine, trivalent, preservative free, HIGH-DOSE, age 65y+ (Fluzone)05/11/2022,05/15/2018,05/08/2016,05/23/2015 Influenza Whole04/12/2014,05/12/2013Influenza, Seasonal, Quadrivalent, Yemsukcdxv56/20/2023,04/27/2021Influenza, seasonal, scwudlcjet79/30/2020 Influenza, trivalent, zqrincakxp39/12/2019Novel qqamemnvn-X6E3-43, preservative-free06/27/2009Pfizer COVID-19 vaccine, bivalent, age 12 years and older (30 mcg/0.3 mL)2Pfizer Cavanaugh Cap BBUW-UmJ-802/14/2022Pneumococcal polysaccharide vaccine, 23-valent, age 2 years and older (PNEUMOVAX 23) 04/19/2015,04/12/2014,04/12/2007Zoster vaccine, recombinant, adult (SHINGRIX) 12/23/2019,10/14/2019Zoster, Tqcdxbqjjwh72/13/2020Zoster, live07/15/2009 Social History Tobacco UseTypesPacks/DayYears UsedDateSmoking Tobacco: FormerCigarettes Tobacco Cessation:Counseling Given: Not Answered Alcohol UseStandard Drinks/WeekCommentsYes0 (1 standard drink = 0.6 oz pure alcohol)Sex and Gender InformationValueDate RecordedSex Assigned at BirthNot on fileLegal BftJyac68/26/2022 9:18 AM ESTGender IdentityNot on fileSexual OrientationNot on file Last Filed Vital Signs Vital SignReadingTime TakenCommentsBlood Ioqdahye958/8403/16/2024 10:31 AM EDT Iqhvn452203/16/2024 10:31 AM EDTTemperature--Respiratory Rate--Oxygen Saturation-- Inhaled Oxygen Concentration--Qmoctv18.5 kg (217 lb 3.2 oz)03/16/2024 10:31 AM IKSKmofkg164 cm (6' 2 )03/16/2024 10:31 AM EDTBody Mass Index27.8903/16/2024 10:31 AM EDT Plan of Treatment Health MaintenanceDue DateLast DoneCommentsMedicare Annual Wellness Visit (AWV) 1946Hepatitis C Raaecioqp85/23/1964DTaP/Tdap/Td Vaccines (1 - Tdap) 1968Pneumococcal Vaccine (2 of 2 - PCV), 04/12/2014, 04/12/2007RSV High Risk: (Elderly (60+) or Population) (1 - 1-dose 75+ series)2021Influenza Vaccine (#1)509/, 05/11/2022, 04/27/2021, Additional history existsCOVID-19 Vaccine ( season) , 05/11/2022, 12/23/2021, Additional history existsLipid Panel/Zoster SddpriikVdhbmmjth95/13/2020, 12/23/2019, 10/14/2019, Additional history existsHIB VaccinesAged OutNo longer eligible based on patient's age to complete this topicHPV VaccinesAged OutNo longer eligible based on patient's age to complete this topicHepatitis A VaccinesAged OutNo longer eligible based on patient's age to complete this topicHepatitis B VaccinesAged OutNo longer eligible based on patient's age to complete this topic IPV VaccinesAged OutNo longer eligible based on patient's age to complete this topicMeningococcal VaccineAged OutNo longer eligible based on patient's age to complete this topicRotavirus VaccinesAged OutNo longer eligible based on patient's age to complete this topic Insurance Care Teams Team MemberRelationshipSpecialtyStart DateEnd Date Chris King DO [address] [facility] [address] [place] [address] [facility]12/31/19
--- OUTSIDE RECORDS SUMMARY | 2025-07-04 09:42 | XMS_ITS | Encounter Summary ---
Author Organization [facility] Address [address] [facility] [place] [address] Care Team Providers Care Oncology Consultant Name Role Phone Rian Chappell MD Primary Care Provider [phone] Reason for Visit * ReasonOnset DateCommentsPT Status good06/30/2025 Encounter Details DateTypeDepartmentCare Team (Latest Contact Info)Cucgpbomrmw23/19/2025Telephone [facility] [address] [place] [address] Gerri Borrego, [place] PT Status good Social History Tobacco UseTypesPacks/DayYears UsedDateSmoking Tobacco: FormerCigarettes0.315 [...] drinks on one occasion?Never02/12/2024HQ-2AnswerDate RecordedPatient Health Questionnaire-2 Mwfmm185Sex and Gender InformationValueDate RecordedSex Assigned at BirthNot on fileLegal MhpGcom2210/24/2022 6:54 PM EDTGender IdentityNot on file Sexual OrientationNot on fileOccupationIndustryJob Start DateJob End DateRetired Not on fileNot on fileNot on filedocumented as of this encounter Miscellaneous Notes * Telephone Encounter - Sharyn Sheth - 06/30/2025 11:09 AM EST He called noting the pain that he occurred has resolved and after the Eval he was happy with status. He cx out his 07/02 and 07/05/25. He said if pain would come back he would contact doctor and request a new referral. documented in this encounter Plan of Treatment DateTypeDepartmentCare Team (Latest Contact Info)Qbtjhhjbbzc03/17/2025 4:00 PM ESTOffice Visit [facility] [place] [facility] [address] [facility] [address] [place] [address] 09/02/2025 10:00 AM ESTOffice Visit [facility] [address] [facility] [address] [place] [address] documented as of this encounter Visit Diagnoses Not on filedocumented in this encounter Additional Health Concerns AssessmentNoted TimePHQ-9 Depression Total Score: 6:27 PM EST documented as of this encounter Care Teams Team MemberRelationshipSpecialtyStart DateEnd Rian Chappell MD [address] [facility] [address] [place] [address] PCP - GeneralInternal Medicine04/21/25documented as of this encounter
--- OUTSIDE RECORDS SUMMARY | 2025-07-04 09:42 | XMS_ITS | Clinical Summary ---
Author Organization [facility] Address [address] [place] [address], [address] [place] [address] Care Team Providers Care Mascara Molder Name Role Phone Unavailable Primary Care Provider Unavailabl e Social History Tobacco UseTypesPacks/DayYears UsedDateSmoking Tobacco: Never AssessedSex and Gender InformationValueDate RecordedSex Assigned at BirthNot on fileLegal Sex Male09/15/2012 6:31 AM ESTGender IdentityNot on fileSexual OrientationNot on file Plan of Treatment Not on file
[2025-07-04] MEDS: FLUORESCEIN SODIUM 1 MG STRIP OP (11:59)
[2025-07-04] MEDS: TETRACAINE HCL 0.5% OP SOL 80 DROP/4 ML BOTTLE OP (12:00)
--- NOTE | 2025-07-04 12:26 | ED.GENADUL1 ---
HPI HPI - General Adult General Chief complaint: Eye Problems Stated complaint: EYE INFECTION Time Seen by Provider: 07/04/25 10:18 Source: patient Mode of arrival: walk-in Limitations: no limitations History of Present Illness HPI narrative: Presents to us with a left eye irritation that developed over the last after he was mowing the lawn, apparently felt like something got in his left eye and he noted today that he is have some swelling in the left lower eyelid the patient denies any foreign body sensation although he had some irritation And he denies any blurry vision Related Data Home Medications ?Medication ?Instructions ?Recorded ?Confirmed amlodipine 5 mg tablet 5 mg PO DAILY 04/01/24 04/01/24 aspirin 81 mg capsule 81 mg PO DAILY 04/01/24 04/01/24 doxazosin 4 mg tablet 4 mg PO BEDTIME 04/01/24 04/01/24 ezetimibe 10 mg tablet 10 mg PO BEDTIME 04/01/24 04/01/24 isosorbide mononitrate 30 mg 30 mg PO DAILY 04/01/24 04/01/24 tablet,extended release 24 hr potassium citrate 15 mEq (1,620 15 meq PO DAILY 04/01/24 04/01/24 mg) tablet,extended release rosuvastatin 40 mg tablet 40 mg PO BEDTIME 04/01/24 04/01/24 tamsulosin 0.4 mg capsule 0.4 mg PO Q24H 04/01/24 04/01/24 bisoprolol fumarate 10 mg tablet 10 mg PO DAILY 04/02/24 oxycodone 5 mg tablet 5 mg PO Q6H PRN pain 04/02/24 04/02/24 semaglutide 2 mg/dose (8 mg/3 mL) 2 mg subcut QWEEK 04/02/24 04/02/24 subcutaneous pen injector (Ozempic) Previous Rx's ?Medication ?Instructions ?Recorded cephalexin 500 mg capsule 500 mg PO BID 7 days #14 caps 04/02/24 mirabegron 50 mg tablet,extended 50 mg PO DAILY #20 tabs 04/02/24 release 24 hr (Myrbetriq) erythromycin 5 mg/gram (0.5 %) eye 0.5 inch ophthalmic (eye) Q4H #3.5 07/04/25 ointment grams Allergies Allergy/AdvReac Type Severity Reaction Status Date / Time lisinopril AdvReac Mild Cough Verified 04/01/24 20:12 colesevelam AdvReac Unknown Unknown Verified 04/01/24 20:12 fluvastatin AdvReac Unknown Muscle Pain Verified 04/01/24 20:12 metaxalone AdvReac Unknown Unknown Verified 04/01/24 20:12 simvastatin AdvReac Unknown Muscle Pain Verified 04/01/24 20:12 atorvastatin AdvReac Muscle Pain Verified 04/01/24 20:12 cerivastatin AdvReac Muscle Pain Verified 04/01/24 20:12 Opioid HPI Opioid Management Most Recent Opioid Data: Last Pain Scale 3 04/02/24, 07:00 Last ORT Total Score 4 04/01/24, 22:35 Last ORT Risk Category Moderate Risk 04/01/24, 22:35 Review of Systems ROS Status of ROS 10 or more systems reviewed and unremarkable except as noted in history and below [facility] Medical History (Updated 07/04/25 @ 12:30 by Autumn Sánchez MD) Ureteral stone ?N20.1 - Calculus of ureter (ICD-10) Intractable nausea and vomiting ?R11.2 - Nausea with vomiting, unspecified (ICD-10) ISAC (acute kidney injury) ?N17.9 - Acute kidney failure, unspecified (ICD-10) Nausea & vomiting ?R11.2 - Nausea with vomiting, unspecified (ICD-10) Acute flank pain ?R10.9 - Unspecified abdominal pain (ICD-10) HLD (hyperlipidemia) ?E78.5 - Hyperlipidemia, unspecified (ICD-10) Type 2 diabetes mellitus ?E11.9 - Type 2 diabetes mellitus without complications (ICD-10) Nausea and vomiting ?R11.2 - Nausea with vomiting, unspecified (ICD-10) Flank pain ?R10.9 - Unspecified abdominal pain (ICD-10) Testicle pain ?N50.819 - Testicular pain, unspecified (ICD-10) Retrograde ejaculation ?N53.14 - Retrograde ejaculation (ICD-10) Nocturia ?R35.1 - Nocturia (ICD-10) Epididymitis ?N45.1 - Epididymitis (ICD-10) Kidney stone ?N20.0 - Calculus of kidney (ICD-10) Hypertension ?I10 - Essential (primary) hypertension (ICD-10) GI bleed ?K92.2 - Gastrointestinal hemorrhage, unspecified (ICD-10) Elevated PSA ?R97.20 - Elevated prostate specific antigen [PSA] (ICD-10) Elevated cholesterol ?E78.00 - Pure hypercholesterolemia, unspecified (ICD-10) BPH (benign prostatic hyperplasia) ?N40.0 - Benign prostatic hyperplasia without lower urinary tract symptoms (ICD-10) Surgical History (Updated 04/01/24 @ 16:43 by Moira Luciano RN) H/O: vasectomy ?Z98.52 - Vasectomy status (ICD-10) Hx of tonsillectomy ?Z90.89 - Acquired absence of other organs (ICD-10) History of colonoscopy ?Z98.890 - Other specified postprocedural states (ICD-10) H/O transurethral resection of prostate ?Z98.890 - Other specified postprocedural states (ICD-10) ?Z90.79 - Acquired absence of other genital organ(s) (ICD-10) Hx of cystoscopy ?Z98.890 - Other specified postprocedural states (ICD-10) H/O ureteroscopy ?Z98.890 - Other specified postprocedural states (ICD-10) H/O lithotripsy ?Z98.890 - Other specified postprocedural states (ICD-10) H/O arthroscopy of knee ?Z98.890 - Other specified postprocedural states (ICD-10) Family History (Updated 04/01/24 @ 16:49 by Moira Luciano, FLIP) Other Family history of stroke Heart disease Social History (Updated 04/01/24 @ 22:49 by Ashok Abdul) Smoking status: Former smoker What tobacco products do you use: cigarettes Packs per day: 2 Years smoked: 20 Smoking pack-years: 40.00 Smoking quit date/years: >15 years ago Second hand tobacco smoke exposure: Yes Highest level of school completed/degree received: high school graduate Little interest or pleasure in doing things: not at all Feeling down, depressed, or hopeless: not at all Exam Narrative Exam Narrative: Nurses notes and vital signs reviewed and patient is not hypoxic. General: Well-appearing and in no apparent distress. Skin: Warm, dry, no pallor noted. Nurses notes and vital signs reviewed and patient is not hypoxic. eye the patient bilateral eye examination showed that the pupils are reactive bilaterally there is no hyphema or hypopyon no signs of trauma to the eye itself the only pathology detected with the conjunctiva and the lower eyelid being irritated No signs of trauma to the eye itself and the patient after applying tetracaine the fluorescein test did not show any abrasion to the cornea or into the conjunctiva although the lower eyelid conjunctiva with edematous Neurological: A&O x4. No cranial nerve dysfunction observed. No truncal ataxia. Moves all extremities. Sensation intact. Psychiatric: Cooperative and interactive. Normal mood and affect. Constitutional Vital Signs, click to edit/add: Last Vital Signs Temp 97.9 F 07/04/25 09:29 Pulse 88 07/04/25 09:29 Resp 18 07/04/25 09:29 BP 133/88 07/04/25 09:29 Pulse Ox 98 07/04/25 09:29 O2 Del Method Room Air 07/04/25 09:29 Course Vital Signs Vital signs: Vital Signs Temperature 97.9 F 07/04/25 09:29 Pulse Rate 88 07/04/25 09:29 Respiratory Rate 18 07/04/25 09:29 Blood Pressure 133/88 07/04/25 09:29 Pulse Oximetry 98 07/04/25 09:29 Oxygen Delivery Method Room Air 07/04/25 09:29 Temperature 97.9 F 07/04/25 09:29 Pulse Rate 88 07/04/25 09:29 Respiratory Rate 18 07/04/25 09:29 Blood Pressure 133/88 07/04/25 09:29 Pulse Oximetry 98 07/04/25 09:29 Oxygen Delivery Method Room Air 07/04/25 09:29 Medical Decision Making [facility] Narrative Medical decision making narrative: The patient presented with conjunctivitis mostly secondary to irritation He was started on erythromycin instructed that he need to follow-up with ophthalmology as outpatient The patient to come back to the ER in case of any new symptoms including blurry vision or any new increasing in the swelling specially in the left lower eyelid swelling Patient also needed about the symptoms that would bring him back to the ER including increase in the redness or any eye pain The patient to follow-up with the primary care within 2 to 3 days and to come back to the ER in case of any worsening of the current symptoms or any new symptoms or concerns Discharge Plan Discharge Chief Complaint: Eye Problems Clinical Impression: Conjunctivitis Patient Disposition: Home, Self-Care Time of Disposition Decision: 12:30 Condition: Good Prescriptions / Home Meds: New erythromycin 5 mg/gram (0.5 %) ointment 0.5 inch ophthalmic (eye) Q4H Qty: 3.5 0RF No Action amlodipine 5 mg tablet 5 mg PO DAILY aspirin 81 mg capsule 81 mg PO DAILY doxazosin 4 mg tablet 4 mg PO BEDTIME ezetimibe 10 mg tablet 10 mg PO BEDTIME isosorbide mononitrate 30 mg tablet extended release 24 hr 30 mg PO DAILY potassium citrate 15 mEq tablet extended release 15 meq PO DAILY rosuvastatin 40 mg tablet 40 mg PO BEDTIME tamsulosin 0.4 mg capsule 0.4 mg PO Q24H Ozempic 2 mg/dose (8 mg/3 mL) pen injector 2 mg SUBCUT QWEEK oxycodone 5 mg tablet 5 mg PO Q6H PRN (Reason: pain) Patient Comments: FILLED 03/26/24 FOR 5 DAYS bisoprolol fumarate 10 mg tablet 10 mg PO DAILY cephalexin 500 mg capsule 500 mg PO BID 7 Days Qty: 14 0RF mirabegron [Myrbetriq] 50 mg tablet extended release 24 hr 50 mg PO DAILY Qty: 20 0RF Print Language: Cymro Instructions: Conjunctivitis (ED) Additional Instructions: Please follow-up with the outdoor emergency care technician within a week but in case of any deterioration or any progression of symptoms come back to the ER Referrals: Phillip So MD [Physician, Opthalmology] - As soon as possible Referral Note: [facility], [address], [place] [address] JESSENIA LOVING [Primary Care Provider, Internal Medicine] - 1 week Discharge Date/Time: 07/04/25 12:49
[2025-07-04] MEDS: ERYTHROMYCIN OP OINT 0.5% 1 GM TUBE OP (12:42)
== END 2025-07-04 12:49 | disposition home or self-care (01) ==
PROVIDERS: Emergency Provider Emergency Medicine; PCP Internal Medicine
DX: H10.9 Unspecified conjunctivitis (principal)
CPT/HCPCS: 99284